=== PATIENT | female | born 1990 | race Caucasian/White ===

== ENCOUNTER 2019-03-27 16:43 | Observation (INO) | payer MEDICAID, SELFPAY ==
[2019-03-27 16:54] VITALS: BMI 26.3
[2019-03-27 17:29] VITALS: BP 113/76; PULSE 89; RESP 18; TEMP 36.8; O2SAT 100
[2019-03-27 17:31] VITALS: BP 113/76; PULSE 89; RESP 18; TEMP 36.8
[2019-03-27] MEDS: Dicyclomine 10 MG Capsule 20 MG PO (17:32)
[2019-03-27] MEDS: hydrOXYzine PAM 25 MG Capsule 50 MG PO (17:32)
[2019-03-27] MEDS: Methocarbamol 750 MG Tablet PO (17:33)
[2019-03-27] MEDS: Pramipexole Di-HCl 0.25 MG Tablet PO (17:33)
[2019-03-27] MEDS: Ibuprofen 600 MG Tablet PO (17:33)
[2019-03-27] MEDS: cloNIDine HCl 0.1 MG Tablet PO (17:33)
[2019-03-27] MEDS: Buprenorphine HCl 2 MG TAB.SUBL SL (17:33)
[2019-03-27 17:42] LABS: Absolute Lymphocyte Count 2.54 X10^3/ul (0.83-4.51); Absolute Neutrophil Count 6.7 X10^3/uL (2.0-7.7); Basophil# 0.02 X10^3/uL; Basophil% 0.2 % (0-1); Eosinophil# 0.07 X10^3/uL; Eosinophils% 0.7 % (0-5); Hematocrit 42.6 % (37-47); Lymphocyte # 2.54 X10^3/ul (4.0); Lymphocyte % 25.2 % (19-41); Mean Corp Hgb Conc 32.9 g/gl (32-36); Mean Corpuscular Hgb 31.5 pg (27.0-32.0); Mean Corpuscular Volume 95.9 fL (81-99); Mean Platelet Vol. 10.6 fl (6.2-12.0); Monocyte# 0.76 X10^3/uL; Monocyte% 7.5 % (0-10); Neutrophil # 6.68 X10^3/uL (2.7-7.7); Neutrophil % 66.3 % (47-70); POSITIVE COUNT NO; POSITIVE DIFFERENTIAL NO; POSITIVE MORPHOLOGY NO; Platelet Count 298 K/mm3 (150-450); RBC Distribution Width CV 13.3 % (11.6-14.6); RBC Distribution Width SD 46.6 fl (35.1-43.9); Red Blood Count 4.44 M/mm3 (4.2-5.4); White Blood Count 10.1 K/mm3 (4.4-11.0)
[2019-03-27 17:59] LABS: ALB/GLOB Ratio 1.1 RATIO (0.9-2.4); AST(SGOT) 41 U/L (15-37); Alanine Aminotransfer ALT/SGPT 45 U/L (13-56); Albumin, Serum 3.9 g/dL (3.2-5.0); Alkaline Phosphatase 90 U/L (45-117); Anion Gap 4 (5-15); BUN 9 mg/dL (7-18); BUN/Creat Ratio 8.1 RATIO (10-20); Calcium,Total 9.1 mg/dL (8.5-10.1); Chloride 106 mmol/L (98-107); Creatinine, Serum 1.11 mg/dL (0.55-1.02); EST Glomerular Filtration Rate 62 mL/min (>60); Est Glom Filt Rate - Afr Amer 76 mL/min (>60); Globulin 3.7 g/dL (2.2-4.2); Glucose 100 mg/dL (74-106); Potassium 3.9 mmol/L (3.5-5.1); Protein, Total 7.6 g/dL (6.4-8.2); Sodium Level 140 mmol/L (136-145)
[2019-03-27 18:01] LABS: Internal QC Validated? YES +Cl - CLEAR BKGD; Pregnancy, Serum, hCG Quali. NEGATIVE Negative
[2019-03-27 18:04] LABS: Alcohol, Blood (Medical)-Serum < 3.0 mg/dL
--- NOTE | 2019-03-27 18:15 | HP.PCM_ITS ---
History of Present Illness Date of Admission: 03/27/19 Chief Complaint: Acute opiate withdrawal. The patient is a 28 year old F with no significant past medical history apart from opioid abuse presented to the [facility] office requesting admission for acute opioid withdrawal. Patient has been using IV heroin around 1 g every day over the last couple of months. Before that, she was clean for about 10 months but she relapsed. She has been using IV heroin intermittently since she was 16 years old. Today, she presented with symptoms of hot and cold sweats, associated with anxiety and restlessness as well as sneezing and without aggravating or relieving factors. She denies abdominal pain, nausea vomiting. She denies constipation or diarrhea. Her last use of IV and was this morning around 6 AM. Her vital signs were stable. Her routine blood work was unremarkable. LFT was normal. Serum test was negative. Blood alcohol level was less than 3. Urine drug screen ordered. She is being admitted for acute opioid withdrawal for medical stabilization. 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 Denies: Anorexia, Chills, Fever, Weakness Eyes: Denies: Blurred vision, Double vision, Drainage, Redness HEENT: Denies: Difficulty Hearing, Ear Pain, Eye Pain, Nasal Congestion, Sore Throat Cardiovascular: Denies: Chest Pain, Chest Tightness, Heaviness, Light Headedness, Palpitations, Syncope Respiratory: Denies: Cough, Pleuritic Pain, Shortness of Breath, Sputum production, Wheezing Gastrointestinal: Denies: Abdominal Pain, Constipation, Diarrhea, Nausea, Vomiting Genitourinary: Denies: Dysuria, Frequency, Hematuria Musculoskeletal: Reports: Muscle pain. Denies: Arm Pain, Back Pain, Foot Pain Skin: Denies: Dryness, Rash Neurological: Reports: Tremor. Denies: Balance problems, Double vision, Change in Speech, Slurred speech, Confusion Psychiatric: Denies: Anxiety, Depression Endocrine: Denies: Change in Body Habitus, Polydipsia, Polyuria VTE Information - Inpt Only VTE Present on Admission: No VTE Mechan Device Prophylaxis: None VTE Pharm Prophylaxis ordered?: No - Physical Exam General: Alert, Oriented x3, Cooperative, No apparent distress HEENT: Atraumatic, PERRLA, EOMI, Normocephalic Oral: Moist Mucosa, No Gingival or Mucosal Lesions/ Ulcerations Neck: Supple, No JVD, Negative Carotid Bruits, Trachea Midline, Thyroid Normal Size and Texture Lungs: Clear to auscultation, Normal air movement, No rhonchi, No wheeze, No rales Cardiovascular: Regular rate, Regular Rhythm, Normal S1, Normal S2, No murmurs Abdomen: Bowel Sounds Present, Soft, Non Tender, Non-Distended, No Hepato- splenomegaly Extremities: No clubbing, No cyanosis, No edema Skin: No rashes, No breakdown Lymphatic: No Cervical, Supraclavicular, or Inguinal Adenopathy Neurological: Cranial nerves II-XII grossly intact, Motor Exam 5/5 strength throughout Psych/Mental Status: Normal Affect, Appropriate, Alert and oriented to time, place, person, mood and affect Vital Signs Temp Pulse Resp BP Pulse Ox 98.3 F 89 18 113/76 100 03/27/19 17:31 03/27/19 17:31 03/27/19 17:31 03/27/19 17:31 03/27/19 17:29 Oxygen Delivery Method Room Air Weight: 173 lb 4.533 oz Body Mass Index (BMI) 26.3 Intake and Output for Last 24 Hours 03/25/19 03/26/19 03/27/19 23:59 23:59 23:59 Intake Total 240 / 240 Balance 240 / 240 Laboratory Tests Past 24 Hrs 03/27/19 03/27/19 03/27/19 17:28 17:28 17:28 WBC 10.1 RBC 4.44 Hgb 14.0 Hct 42.6 MCV 95.9 MCH 31.5 MCHC 32.9 RDW 13.3 RDW Differential 46.6 H Plt Count 298 MPV 10.6 Immature Gran % (Auto) 0.100 Neut % (Auto) 66.3 Lymph % (Auto) 25.2 Winston % (Auto) 7.5 Eos % (Auto) 0.7 Baso % (Auto) 0.2 Absolute Neuts (auto) 6.7 Absolute Lymphs (auto) 2.54 Total Counted Not Reportable Sodium 140 Potassium 3.9 Chloride 106 Carbon Dioxide 30.0 Anion Gap 4 L BUN 9 Creatinine 1.11 H Estim Creat Clear Calc 76.80 Est GFR (MDRD) Af Amer 76 Est GFR (MDRD) Non-Af 62 BUN/Creatinine Ratio 8.1 L Glucose 100 Calcium 9.1 Total Bilirubin 0.50 AST 41 H ALT 45 Alkaline Phosphatase 90 Total Protein 7.6 Albumin 3.9 Globulin 3.7 Albumin/Globulin Ratio 1.1 Serum , Qual Ethyl Alcohol < 3.0 03/27/19 17:28 WBC RBC Hgb Hct MCV MCH MCHC RDW RDW Differential Plt Count MPV Immature Gran % (Auto) Neut % (Auto) Lymph % (Auto) Winston % (Auto) Eos % (Auto) Baso % (Auto) Absolute Neuts (auto) Absolute Lymphs (auto) Total Counted Sodium Potassium Chloride Carbon Dioxide Anion Gap BUN Creatinine Estim Creat Clear Calc Est GFR (MDRD) Af Amer Est GFR (MDRD) Non-Af BUN/Creatinine Ratio Glucose Calcium Total Bilirubin AST ALT Alkaline Phosphatase Total Protein Albumin Globulin Albumin/Globulin Ratio Serum , Qual NEGATIVE Ethyl Alcohol Assessment/Plan This is a 28 years old female patient presented to the [facility] office requesting admission for acute opiate withdrawal. #1 acute opiate withdrawal: Patient has been using IV heroin for the last 2 months. She was clean for about 2 months but she relapsed. She has been using opioids since she was 16 years old. Her vital signs are stable. Routine blood work and LFT was unremarkable. Serum test was negative. Urine drug screen ordered. Plan: Admit to [facility] floor, initiate [facility] protocol with tapering course of Subutex, PRN Tylenol, Catapres, Bentyl, Vistaril, Motrin, methocarbamol, Zofran, Mirapex and nightly trazodone. #2 DVT prophylaxis: Low risk patient, no prophylaxis indicated. This note was generated with Meuugame dictation software. It may contain incorrect words, spelling, and punctuation that were not noted in checking the note before signing. Code Visit Inpatient E&M: 60749 Init Hosp L2
[2019-03-27] MEDS: traZODone 50 MG Tablet PO (21:05)
[2019-03-27 21:45] VITALS: BP 104/68; PULSE 82; RESP 16; TEMP 36.9; O2SAT 98
[2019-03-27 22:00] VITALS: BP 104/68; PULSE 82; RESP 16; TEMP 36.9
[2019-03-27 22:17] LABS: Amphetamine Urine VISTA POSITIVE (<1000 ng/mL); Barbiturate Urine VISTA NEGATIVE (< 200 ng/mL); Benzodiazepine Urine VISTA NEGATIVE (< 200 ng/mL); Cocaine Urine VISTA NEGATIVE (< 300 ng/mL); Ecstacy Urine VISTA NEGATIVE (< 500 ng/mL); Methadone Urine VISTA POSITIVE (< 300 ng/mL); PCP Urine VISTA NEGATIVE (< 25 ng/mL); THC Urine VISTA POSITIVE (< 50 ng/mL); Vista UDS pH Range 7
[2019-03-28] MEDS: Buprenorphine HCl 2 MG TAB.SUBL SL ×3 (00:16→17:29)
[2019-03-28] MEDS: Methocarbamol 750 MG Tablet PO ×3 (00:16→19:22)
[2019-03-28 02:00] VITALS: PULSE 81; RESP 16
[2019-03-28 03:45] VITALS: BP 110/72; PULSE 81; RESP 16; TEMP 36.7; O2SAT 97
[2019-03-28 05:52] VITALS: RESP 16
--- NOTE | 2019-03-28 08:54 | PN_ITS ---
Patient Problems: Active and Suspected Problems Heroin withdrawal (Acute) Subjective: Feeling somewhat better at this time. Patient still with restless legs, abdominal cramps. Vitals/I&O's: Vital Signs Temp Pulse Resp BP Pulse Ox 36.7 C 81 16 110/72 97 03/28/19 03:45 03/28/19 03:45 03/28/19 05:52 03/28/19 03:45 03/28/19 03:45 Oxygen Delivery Method Room Air Weight: 78.6 kg Body Mass Index (BMI) 26.3 Intake and Output for Last 24 Hours 03/26/19 03/27/19 03/28/19 23:59 23:59 23:59 Intake Total 240 / 960 920 / 920 Balance 240 / 960 920 / 920 General: Alert, No apparent distress HEENT: Atraumatic, Normocephalic Oral: Moist Mucosa, No Gingival or Mucosal Lesions/ Ulcerations Neck: No Nodes, Thyroid Normal Size and Texture Lungs: Clear to auscultation, Normal air movement, No rhonchi, No wheeze Cardiovascular: Regular rate, Regular Rhythm, Normal S1, Normal S2, No murmurs Abdomen: Bowel Sounds Present, Soft, Non Tender, Non-Distended, No Hepato- splenomegaly Extremities: No edema, No Calf Tenderness Skin: No rashes, No breakdown Psych/Mental Status: Normal Affect, Appropriate Laboratory Results 03/27/19 17:28: WBC 10.1, RBC 4.44, Hgb 14.0, Hct 42.6, MCV 95.9, MCH 31.5, MCHC 32.9, RDW 13.3, RDW Differential 46.6 H, Plt Count 298, MPV 10.6, Immature Gran % (Auto) 0.100, Neut % (Auto) 66.3, Lymph % (Auto) 25.2, [place] % (Auto) 7.5, Eos % (Auto) 0.7, Baso % (Auto) 0.2, Absolute Neuts (auto) 6.7, Absolute Lymphs (auto) 2.54, Total Counted Not Reportable 03/27/19 17:28: Sodium 140, Potassium 3.9, Chloride 106, Carbon Dioxide 30.0, An ion Gap 4 L, BUN 9, Creatinine 1.11 H, Estim Creat Clear Calc 76.80, Est GFR (MDRD) Af Amer 76, Est GFR (MDRD) Non-Af 62, BUN/Creatinine Ratio 8.1 L, Glucose 100, Calcium 9.1, Total Bilirubin 0.50, AST 41 H, ALT 45, Alkaline Phosphatase 90, Total Protein 7.6, Albumin 3.9, Globulin 3.7, Albumin/Globulin Ratio 1.1 03/27/19 17:28: Ethyl Alcohol < 3.0 03/27/19 17:28: Serum , Qual NEGATIVE 03/27/19 21:10: Urine Opiates Screen NEGATIVE, Urine Methadone Screen POSITIVE H , Ur Barbiturates Screen NEGATIVE, Ur Phencyclidine Scrn NEGATIVE, Ur Amphetamines Screen POSITIVE H, U Methamphetamin-MDMA NEGATIVE, U Benzodiazepines Scrn NEGATIVE, Urine Cocaine Screen NEGATIVE, U Cannabinoids Screen POSITIVE H, Ur Drug Screen Comment Current Medications Acetaminophen (Tylenol) 500 mg PO Q4H PRN PRN PRN Reason: Temp > 100.4 F Buprenorphine HCl (Buprenorphine Hcl) 4 mg SL Q8H TIGRE; Taper Stop: 03/30/19 20:59 Last Admin: 03/28/19 00:16 Dose: 4 mg Documented by: Clonidine (Catapres) 0.1 mg PO Q2H PRN PRN PRN Reason: Hot/Cold Sweats or Anxiety Last Admin: 03/27/19 17:33 Dose: 0.1 mg Documented by: Dicyclomine HCl (Bentyl) 20 mg PO Q6H PRN PRN PRN Reason: Abdomnial Discomfort Last Admin: 03/27/19 17:32 Dose: 20 mg Documented by: Hydroxyzine Pamoate (Vistaril Pamoate Capsule) 50 mg PO Q6H PRN PRN PRN Reason: Mild Anxiety Last Admin: 03/27/19 17:32 Dose: 50 mg Documented by: Ibuprofen (Motrin) 600 mg PO Q8H PRN PRN PRN Reason: Mild-Moderate Pain (1-5/10) Last Admin: 03/27/19 17:33 Dose: 600 mg Documented by: Methocarbamol (Methocarbamol) 750 mg PO Q6H PRN PRN PRN Reason: Muscle Aches Last Admin: 03/28/19 00:16 Dose: 750 mg Documented by: Nicotine (Nicoderm Cq (Pbkc)) 21 mg TRANSDERM. DAILY TIGRE Last Admin: 03/27/19 17:33 Dose: 21 mg Documented by: Ondansetron HCl (Zofran Odt) 4 mg PO Q6H PRN PRN PRN Reason: NAUSEA Pramipexole Dihydrochloride (Mirapex) 0.25 mg PO Q12H PRN PRN PRN Reason: Restless Legs Last Admin: 03/27/19 17:33 Dose: 0.25 mg Documented by: Trazodone HCl (Desyrel) 50 mg PO QHS [facility] Last Admin: 03/27/19 21:05 Dose: 50 mg Documented by: Tuberculin PPD (Tubersol, Aplisol, Ppd) 5 tu ID [id number] ONE Stop: 03/28/19 10:01 Medical Necessity - Tobacco Use Smoking Status: Current every day smoker Tobacco Use: Cigarettes Assessment/Plan All Active Problems Heroin withdrawal (Acute) 1. Acute heroin withdrawal * Ongoing * Continue with buprenorphine taper that we will go until the , afterwards patient will be discharged. [facility] to further assist with long-term addiction management programs * Continue other medications to help other somatic issues associated with her withdrawal 2. VTE prophylaxis: Low risk. Therefore no prophylaxis indicated. Code Visit Inpatient E&M: 07086 Subs Hosp L2
[2019-03-28 09:05] VITALS: BP 106/76; PULSE 79; RESP 18; TEMP 36.8
[2019-03-28] MEDS: Pramipexole Di-HCl 0.25 MG Tablet PO ×2 (09:10→21:31)
[2019-03-28] MEDS: Tuberculin,Purif.prot.deriv. 50 TU/ML Vial 5 ML ID (10:32)
[2019-03-28] MEDS: Ibuprofen 600 MG Tablet PO (14:25)
[2019-03-28] MEDS: cloNIDine HCl 0.1 MG Tablet PO ×2 (14:26→19:21)
[2019-03-28] MEDS: hydrOXYzine PAM 25 MG Capsule 50 MG PO (14:26)
[2019-03-28 14:27] VITALS: BP 118/78; PULSE 66; RESP 18; TEMP 36.6
--- NOTE | 2019-03-28 14:33 | CHAPLAIN ---
Type of Pastoral Visit _x__ Initial Visit ___ Follow-up Visit ___ On-call Visit ___ General Patient Visit ___ Spiritual Assessment ___ Family Conference ___ Bereavement ___ Rapid Response ___ Code Blue ___ Other (describe below) Pastoral Care Referral From _x__ Patient ___ Family ___ Nurse ___ Physician ___ Insulation Manager ___ Category Consultant ___ Other (describe below) Sacrament/Intervention _x__ Active listening ___ Anointing ___ Anglican ___ Bereavement ___ Communion _x__ Chantel exploration ___ _x__ Life review _x__ Prayer ___ Reconciliation ___ Sacrament of Sick _x__ Supportive presence ___ Wedding ___ Other (describe below) Pastoral Comments patient welcoming and pleasant; pt explains her situation and history; pt is open to spiritual support and has Methodist chantel heritage but is not actively engaged in this when I am using drugs; pt welcomes prayer and inspirational literature to read
--- NOTE | 2019-03-28 15:55 | [facility] ---
Phoebe will attend [facility] inpatient on Monday04.01.19.
[2019-03-28 19:22] VITALS: BP 106/56; BP 106/58; PULSE 84; RESP 17; TEMP 36.6; O2SAT 100
[2019-03-28] MEDS: Acetaminophen 500 MG Tablet PO (19:22)
[2019-03-28] MEDS: traZODone 50 MG Tablet PO (21:31)
[2019-03-29 00:58] VITALS: BP 104/60; PULSE 67; RESP 16; TEMP 36.9; O2SAT 97
[2019-03-29 00:59] VITALS: BP 104/60; PULSE 67; RESP 16; TEMP 36.9
[2019-03-29] MEDS: Buprenorphine HCl 2 MG TAB.SUBL SL ×2 (01:00→08:25)
[2019-03-29 08:33] VITALS: BP 104/68; PULSE 66; RESP 18; TEMP 36.8
--- NOTE | 2019-03-29 09:46 | NURSING ---
Pt sitting in back hallway with [facility] patient from [id number], sitting in chairs conversing.
[2019-03-29] MEDS: hydrOXYzine PAM 25 MG Capsule 50 MG PO ×2 (10:30→16:44)
[2019-03-29] MEDS: Methocarbamol 750 MG Tablet PO (10:30)
--- NOTE | 2019-03-29 13:04 | PN_ITS ---
Patient Problems: Active and Suspected Problems Heroin withdrawal (Acute) Subjective: Feeling better overall, though still with restless legs. Vitals/I&O's: Vital Signs Temp Pulse Resp BP Pulse Ox 36.8 C 66 18 104/68 97 03/29/19 08:33 03/29/19 08:33 03/29/19 08:33 03/29/19 08:33 03/29/19 00:58 Oxygen Delivery Method Room Air Weight: 78.6 kg Body Mass Index (BMI) 26.3 Intake and Output for Last 24 Hours 03/27/19 03/28/19 03/29/19 23:59 23:59 23:59 Intake Total 240 / 960 2170 / 2670 700 / 700 Balance 240 / 960 2170 / 2670 700 / 700 General: Alert, No apparent distress HEENT: Atraumatic, Normocephalic Psych/Mental Status: Normal Affect, Appropriate Current Medications Acetaminophen (Tylenol) 500 mg PO Q4H PRN PRN PRN Reason: Temp > 100.4 F Last Admin: 03/28/19 19:22 Dose: 500 mg Documented by: Buprenorphine HCl (Buprenorphine Hcl) 2 mg SL Q12H TIGRE; Taper Stop: 03/30/19 20:59 Last Admin: 03/29/19 08:25 Dose: 2 mg Documented by: Clonidine (Catapres) 0.1 mg PO Q2H PRN PRN PRN Reason: Hot/Cold Sweats or Anxiety Last Admin: 03/28/19 19:21 Dose: 0.1 mg Documented by: Dicyclomine HCl (Bentyl) 20 mg PO Q6H PRN PRN PRN Reason: Abdomnial Discomfort Last Admin: 03/27/19 17:32 Dose: 20 mg Documented by: Hydroxyzine Pamoate (Vistaril Pamoate Capsule) 50 mg PO Q6H PRN PRN PRN Reason: Mild Anxiety Last Admin: 03/29/19 10:30 Dose: 50 mg Documented by: Ibuprofen (Motrin) 600 mg PO Q8H PRN PRN PRN Reason: Mild-Moderate Pain (1-5/10) Last Admin: 03/28/19 14:25 Dose: 600 mg Documented by: Methocarbamol (Methocarbamol) 750 mg PO Q6H PRN PRN PRN Reason: Muscle Aches Last Admin: 03/29/19 10:30 Dose: 750 mg Documented by: Nicotine (Nicoderm Cq (Pbkc)) 21 mg TRANSDERM. DAILY TIGRE Last Admin: 03/29/19 10:30 Dose: 21 mg Documented by: Ondansetron HCl (Zofran Odt) 4 mg PO Q6H PRN PRN PRN Reason: NAUSEA Pramipexole Dihydrochloride (Mirapex) 0.25 mg PO Q12H PRN PRN PRN Reason: Restless Legs Last Admin: 03/28/19 21:31 Dose: 0.25 mg Documented by: Trazodone HCl (Desyrel) 50 mg PO QHS TIGRE Last Admin: 03/28/19 21:31 Dose: 50 mg Documented by: Medical Necessity - Tobacco Use Smoking Status: Current every day smoker Tobacco Use: Cigarettes Assessment/Plan All Active Problems Heroin withdrawal (Acute) 1. Acute heroin withdrawal * Ongoing * Continue with buprenorphine taper that we will go until the , afterwards patient will be discharged. [facility] to further assist with long-term ad diction management programs * Continue other medications to help other somatic issues associated with her withdrawal * Patient to enroll in an outpt program on 04/01. She will be staying with family after she is discharged on the in the internum. 2. VTE prophylaxis: Low risk. Therefore no prophylaxis indicated. Code Visit Inpatient E&M: 36098 Subs Hosp L1
[2019-03-29] MEDS: Ibuprofen 600 MG Tablet PO (14:15)
[2019-03-29] MEDS: Pramipexole Di-HCl 0.25 MG Tablet PO (14:17)
[2019-03-29 14:18] VITALS: BP 93/61; PULSE 65; RESP 16; TEMP 36.7
[2019-03-29] MEDS: cloNIDine HCl 0.1 MG Tablet PO (18:48)
[2019-03-29 18:49] VITALS: BP 122/72; PULSE 80; RESP 18; TEMP 36.6
--- NOTE | 2019-03-29 19:20 | NURSING ---
UNABLE TO LOCATE PATIENT. ATTEMPTED TO CALL HER ON HER CELL PHONE NUMBER NO RESPONSE. SECURITY NOTIFIED. PHYSICIAN NOTIFIED LEFT VINCE
--- NOTE | 2019-03-30 15:08 | PCM.DC.SUM ---
Discharge Date and Diagnosis - Problem List Patient Problems: Active and Suspected Problems Heroin withdrawal (Acute) Date of Admission: 03/27/19 Date of Discharge: 03/29/19 - Primary Discharge Diagnosis Active and Suspected Problems Heroin withdrawal (Acute) Hospital Course and Treatment Summary of Care Provided: The patient is a 28 year old F presents for heroin withdrawal. She left AMA. [] Patient Problems: Active and Suspected Problems Heroin withdrawal (Acute) - Physical Exam Vital Signs Temp Pulse Resp BP Pulse Ox 36.6 C 80 18 122/72 H 97 03/29/19 18:49 03/29/19 18:49 03/29/19 18:49 03/29/19 18:49 03/29/19 00:58 Oxygen Delivery Method Room Air Weight: 78.6 kg Body Mass Index (BMI) 26.3 Intake and Output for Last 24 Hours 03/28/19 03/29/19 03/30/19 23:59 23:59 23:59 Intake Total 2170 / 2670 2400 / 2400 Balance 2170 / 2670 2400 / 2400 Primary Care Physician: Care Physician,No Primary [Primary Care Provider] - Disposition: Against Medical Advice Medical Necessity - Tobacco Use Smoking Status: Current every day smoker Tobacco Use: Cigarettes Meaningful Use Info Meaningful Use Diagnoses (Choose all that apply): None applicable Code Visit Inpatient E&M: 31328 Disch Hosp
== END 2019-03-29 19:15 | disposition left against medical advice (07) | DRG 770 ==
PROVIDERS: Admitting Provider Hospitalist; Referring Provider Hospitalist
DX: F11.23 Opioid dependence with withdrawal (principal); F17.210 Nicotine dependence, cigarettes, uncomplicated
CPT/HCPCS: 36415; 80053; 80307; 80320; 84703; 85025; 99218; 99406; G0378; G0379; G0480

== ENCOUNTER 2020-09-08 20:14 | Emergency (ER) | payer MEDICAID, SELFPAY ==
[2019-03-27 16:54] VITALS: BMI 26.3
[2020-09-08 20:14] VITALS: BP 146/98; PULSE 87; RESP 16; TEMP 36.4; O2SAT 100; BMI 32.3
--- NOTE | 2020-09-08 20:37 | ED.VIS.GEN ---
History of Present Illness Chief Complaint: Lower Extremity Injury Informant: Patient Narrative: Patient is a 29-year-old previously healthy female who presents to emergency department for left foot pain. It was initially injured 1 week ago when her boyfriend fell on her leg and she ended up twisting the foot outward. She was not seen at that time as the pain progressively got better over the next few days. She has been ambulating on it more frequently at work since yesterday and the pain has flared back up. She describes the pain as severe on the dorsal aspect of the left foot. Any weight on the foot does make it worse. Loss of sensation. She has been taking vvka-auv-ldggimm pain medicines for this which has not been giving significant relief. No pain in the ankle or proximal lower extremity. She denies any other injury. Past Medical History - Allergies and Home Meds Allergies/Adverse Reactions: Allergies No Known Allergies Allergy (Verified 09/08/20 20:16) Primary Care Physician: Care Physician,No Primary [Primary Care Provider] - Prior records reviewed: Yes Past Medical History: None Surgical History: no surgical history Smoking Status: Former smoker - Family History Maternal Family History: Reports: Hypertension Paternal Family History: Reports: No pertinent history Review of Systems All systems negative except as indicated General: Denies: Chills, Fever, Sweats Eyes: Denies: Visual changes - bilaterally, Diplopia ENT: Denies: Rhinorrhea, Sore throat Cardiovascular: Denies: Chest pain, Palpitations Respiratory: Denies: Dyspnea, Cough, Dyspnea on exertion Gastrointestinal: Denies: Abdominal pain, Nausea, Vomiting Musculoskeletal: Reports: Swelling, Extremity Pain. Denies: Neck pain, Back pain Skin: Denies: Rash, Wounds Neurological: Denies: Headache, Weakness, Numbness Physical Exam Vital Signs/Narrative: Vital Signs Temp Pulse Resp BP Pulse Ox 09/08/20 20:14 97.6 F L 87 16 146/98 H 100 Inital Vital Signs reviewed: Yes General: Well nourished, Well developed, No Acute Distress Head: Normocephalic, Atraumatic Eyes: Perrl, EOMI ENT: Moist mucous membranes, No rhinorrhea Neck: Supple, Nontender Cardiovascular: Regular rate, No murmurs Respiratory: No distress Abdomen: Nondistended Extremities: - - Pain with palpation over the dorsal aspect of the foot. No pain over the base of fifth metatarsal. Mild swelling over the painful sites. Good capillary refill. Sensation intact. Full range of motion of ankle and proximal joints. Skin: Normal color, No rash Neurological: Alert, Normal Strength, Normal Sensation Psychological: Normal affect, Normal Mood Diagnostic/Tx/Re-eval - Medical Decision Making Patient presents to the ED for left foot pain. She initially had an injury 1 week ago but this flared back up after walking on it more frequently. Check an x-ray to make sure there is no fracture. X-ray did not reveal any acute fracture or dislocation. This time will discharge home in stable condition. She is given a walking boot. He is to weight-bear as tolerated. Recommend RICE and kdei-wme-ftpfbrd pain medications. She is to follow-up with her PCP. Warning signs and symptoms which to return to the ED are reviewed. She understands and is agreeable this plan. Discharged home in stable condition. All questions answered. ED Disposition - Plan for ED Patient: Disposition: Home or Assisted Living Diagnosis: Foot sprain Instructions: ED Foot Sprain Referrals: Care Physician,No Primary [Primary Care Provider] - 1 Week if not improving
--- NOTE | 2020-09-08 20:40 | RAD_ITS ---
STUDY: X-RAY - LEFT FOOT CLINICAL: Female, 29 years old. PAIN ON DORSAL SURFACE OF FOOT LATERALLY JUST ANTERIOR TO ANKLE JOINT. BOYFRIEND FELL ON HER FOOT TECHNIQUE: 3 view(s) of the foot. COMPARISON: None. FINDINGS: Normal talus, calcaneus, and tarsal bones. Normal visualized subtalar, talonavicular, calcaneocuboid, tarsal and tarsometatarsal articulations. Normal metatarsi. Normal metatarsophalangeal joint of the great toe. Normal tibial and fibular sesamoid bones. Normal interphalangeal joint of the great toe. Normal phalanges of the great toe. Normal second through fifth metatarsophalangeal joints. Normal interphalangeal joints and phalanges of the lesser toes. The soft tissue structures are unremarkable. RAD/Foot min 3 Views IMPRESSION: Normal x-ray examination of the foot. Electronically Signed: Smooth Coles MD at 21:41 EST , Service support ,
== END 2020-09-08 22:02 | disposition home or self-care (01) ==
PROVIDERS: Emergency Provider Emergency Medicine
DX: S93.602A Unspecified sprain of left foot, initial encounter (principal); Z87.891 Personal history of nicotine dependence; X50.1XXA Overexertion from prolonged static or awkward postures, initial encounter; Y93.89 Activity, other specified; Y92.009 Unspecified place in unspecified non-institutional (private) residence as the place of occurrence of the external cause; Y99.8 Other external cause status
CPT/HCPCS: 73630; 99283

== ENCOUNTER 2021-03-17 13:00 | Outpatient (RCR) | payer MEDICAID, SELFPAY | END 2021-03-17 23:59 | LOC: NS 13:00 | PROVIDERS: Visit Provider Obstetrics & Gynecology | DX: O24.410 Gestational diabetes mellitus in pregnancy, diet controlled (principal); Z3A.00 Weeks of gestation of pregnancy not specified | CPT/HCPCS: 97802 ==

== ENCOUNTER 2021-03-24 17:10 | Outpatient (RCR) | payer MEDICAID, SELFPAY | END 2021-04-17 23:59 | LOC: DC 17:10 | PROVIDERS: Visit Provider Obstetrics & Gynecology | DX: O24.410 Gestational diabetes mellitus in pregnancy, diet controlled (principal); Z3A.00 Weeks of gestation of pregnancy not specified | CPT/HCPCS: G0108 ==

== ENCOUNTER 2021-05-20 12:25 | Inpatient (IN) | payer MEDICAID, SELFPAY ==
[2021-05-20] VITALS (39 sets, daily range): BP systolic 109–139; BP diastolic 71–92; PULSE 62–98; TEMP 36.6–37.2; O2SAT 97–100; BMI 34.9
[2021-05-20 12:25] LABS: ROM Internal Control Test YES-OK TO RESULT pt. (Internal QC)
[2021-05-20 12:26] LABS: ROM Patient Test POSITIVE (Negative)
--- NOTE | 2021-05-20 12:45 | PCM.HP.OB ---
HPI - General General Date of Admission: 05/20/21 HPI Narrative TIFFANIE CORTEZ, is a 30 F at 37.3 weeks who presents to triage c/o leaking fluid. She reports feeling a gush of fluid around 1030 am. She continues to leak clear fluid. Positive movement, denies vaginal bleeding or contractions. has been complicated by GDM A1, EFW 90% with AC >99%, history of HEP C and IV drug use. Maternal Data Information LAURA Calculator Estimated Delivery Date Method Current WG Current Estimate 06/07/21 Manual 37w 3d PFSH PFSH Medical History (Updated 05/20/21 @ 13:49 by Alex Rene) Depression Headache Hepatitis Home Medications [id number] [] 1 tab PO DAILY 05/20/21 [History Last Taken 05/20/21 08:00 1 tab] Allergy/AdvReac Type Severity Reaction Status Date / Time No Known Allergies Allergy Verified 10/08/20 12:15 Surgical History (Updated 05/20/21 @ 13:49 by Alex Rene) History of gynecologic surgery Social History (Updated 10/08/20 @ 12:33 by Valentin HARRIS, KIMBERLY) Smoking Status: Former smoker NST FHR Rate Baby A Baseline: 140 Variability:: Moderate Accelerations:: 15 x 15 Decelerations:: None NST Reactive:: Yes FHR Category:: Category I Uterine Activity:: irritability Vital Signs Vital Signs Vital Signs: 05/20/21 11:41 05/20/21 11:45 Temperature 98.2 F Temperature Source Temporal Pulse Rate 88 Blood Pressure 122/76 H BP Systolic 122 BP Diastolic 76 Physical Exam Const alert, oriented x3 and no apparent distress General Appearance: cooperative Orientation / Consciousness: awake Exam Limitations: no limitations HEENT normocephalic Head and Scalp: normal to inspection Eyes General Eye: normal appearance of both eyes Neck full ROM and no lymphadenopathy Lymph Lymphatic: no lymphadenopathy noted Chest inspection of chest normal Resp normal respiratory effort, normal air movement and clear to auscultation bilaterally Effort and Inspection: able to speak in complete sentences and symmetric chest movement Cardio regular rate and regular rhythm GI normal to inspection, nondistended, normoactive bowel sounds Manual OB Exam: presentation cephalic, dilated 1.5, effaced 80 and station -2 Amniotic Fluid: clear amniotic fluid Back/Spine normal ROM Extremity full ROM and no calf tenderness Skin no rashes or lesions noted General Skin Exam: no breakdown Neuro oriented x3 and CN's II-XII intact bilaterally Psych mental status grossly normal and thought process normal Labs Labs Labs: Blood Type O POSITIVE Antibody Screen NEGATIVE Hct 34.4 % (37-47) L Hgb 11.4 g/dL (12.0-15.0) L C.trachomatis DNA (PCR) Negative (Negative) O+ Rubella Immune HB neg HC- + antibody, neg viral load RPR- NR HIV- NR GBS negative Assessment & Plan (1) Spontaneous rupture of amniotic membranes: (2) 37 weeks gestation of : (3) GDM (gestational diabetes mellitus), class A1: (4) Hepatitis C antibody positive in blood: (5) LGA (large for gestational age) fetus: COMMENT: EFW 90%, AC >99% PLAN: Admit to labor and delivery Routine labs Start IV fluids and run per policy ROM PLUS- positive GBS negative GDM blood sugar monitoring Dr. Ren notified of admission and is collaborating physician
[2021-05-20] MEDS: Lactated Ringers 1,000 ML 50 ML IV (13:05)
[2021-05-20 13:21] LABS: Bedside Glucose 85 mg/dL (70-110)
[2021-05-20 13:22] LABS: Absolute Lymphocyte Count 1.81 X10^3/uL (0.83-4.51); Absolute Neutrophil Count 6.5 X10^3/uL (2.0-7.7); Basophil# 0.03 X10^3/uL; Basophil% 0.3 % (0-1); Eosinophils% 1.1 % (0-5); Hematocrit 34.4 % (37-47); Hemoglobin 11.4 g/dL (12.0-15.0); Lymphocyte # 1.81 X10^3/ul (0.83-4.51); Lymphocyte % 19.8 % (19-41); Mean Corp Hgb Conc 33.1 g/dL (32-36); Mean Corpuscular Hgb 32.4 pg (27.0-32.0); Mean Corpuscular Volume 97.7 fL (81-99); Mean Platelet Vol. 10.9 fl (6.2-12.0); Monocyte# 0.67 X10^3/uL; Monocyte% 7.3 % (0-10); NRBC Flagged by Analyzer 0 % (0-5); Neutrophil # 6.48 X10^3/uL (2.7-7.7); Neutrophil % 71.1 % (47-70); Platelet Count 208 K/mm3 (150-450); RBC Distribution Width CV 12.7 % (11.6-14.6); Red Blood Count 3.52 M/mm3 (4.2-5.4); White Blood Count 9.1 K/mm3 (4.4-11.0)
[2021-05-20 14:16] LABS: Amphetamine Urine VISTA NEGATIVE (<1000 ng/mL); Barbiturate Urine VISTA NEGATIVE (< 200 ng/mL); Benzodiazepine Urine VISTA NEGATIVE (< 200 ng/mL); Cocaine Urine VISTA NEGATIVE (< 300 ng/mL); Ecstacy Urine VISTA NEGATIVE (< 500 ng/mL); Methadone Urine VISTA NEGATIVE (< 300 ng/mL); PCP Urine VISTA NEGATIVE (< 25 ng/mL); THC Urine VISTA NEGATIVE (< 50 ng/mL); Vista UDS pH Range 6
[2021-05-20 14:21] LABS: Bedside Glucose 81 mg/dL (70-110)
--- NOTE | 2021-05-20 17:04 | PCM.PN.BLA ---
Progress Note Patient seen at bedside. Starting to feel occasional contractions. Ambulating in room and frequent position changes. Discussed augmentation of labor with Pitocin IV. Patient agrees with plan. Physical Exam Const alert and no apparent distress General Appearance: cooperative and comfortable Exam Limitations: no limitations HEENT normocephalic Eyes General Eye: normal appearance of both eyes Neck full ROM General: normal visual inspection Chest Chest: symmetrical chest wall rise Resp normal respiratory effort and normal air movement Effort and Inspection: symmetric chest movement Auscultation: clear to auscultation bilaterally Cardio regular rate and regular rhythm GI normal to inspection, nondistended, normoactive bowel sounds Back/Spine normal ROM Extremity full ROM and no calf tenderness General Extremity: normal exam except as noted Skin no rashes or lesions noted Neuro CN's II-XII intact bilaterally Psych mental status grossly normal Assessment & Plan Assessment/Plan (1) Spontaneous rupture of amniotic membranes: (2) 37 weeks gestation of : (3) GDM (gestational diabetes mellitus), class A1: (4) LGA (large for gestational age) fetus: (5) Hepatitis C antibody positive in blood: (6) History of cryosurgery of cervix affecting : QUALIFIERS: Trimester: unspecified trimester Qualified Code(s): O34.40 - Maternal care for other abnormalities of cervix, unspecified trimester; Z98.890 - Other specified postprocedural states PLAN: Cat 1 tracing, NST reactive CE- /50/-2 Start Pitocin IV and titrate per policy Continue blood sugar monitoring per policy Anticipate
[2021-05-20] MEDS: Oxytocin 30 units/NS 500 ml 30 UNITS/500 ML IV.SOLN IV (17:37)
[2021-05-20] MEDS: Acetaminophen 500 MG Tablet PO (18:18)
[2021-05-20 18:21] LABS: Bedside Glucose 86 mg/dL (70-110)
[2021-05-20] MEDS: Lactated Ringers 500 ML 999 ML IV (20:00)
[2021-05-20] MEDS: fentaNYL-bupivacaine (epidural) 100 ML BAG EPIDURAL (21:00)
[2021-05-20] MEDS: Mag Hydrox/Al Hydrox/Simeth 30 ML UDC PO (21:42)
[2021-05-20 22:30] LABS: Bedside Glucose 104 mg/dL (70-110)
[2021-05-20] MEDS: Lactated Ringers 1,000 ML 200 ML IV (23:16)
[2021-05-21] VITALS (32 sets, daily range): BP systolic 104–134; BP diastolic 52–80; PULSE 76–98; RESP 16; TEMP 36.3–37.9; O2SAT 96–99
[2021-05-21] MEDS: fentaNYL-bupivacaine (epidural) 100 ML BAG EPIDURAL ×3 (01:12→09:56)
[2021-05-21] MEDS: Acetaminophen 500 MG Tablet PO ×2 (02:15→09:55)
[2021-05-21 02:26] LABS: Bedside Glucose 81 mg/dL (70-110)
[2021-05-21] MEDS: Lactated Ringers 1,000 ML 200 ML IV ×2 (04:16→09:55)
[2021-05-21] MEDS: Lactated Ringers 500 ML 999 ML IV ×2 (04:19→09:55)
[2021-05-21] MEDS: Mag Hydrox/Al Hydrox/Simeth 30 ML UDC PO (04:56)
[2021-05-21] MEDS: Ondansetron 4 MG/2 ML Vial IV ×2 (05:19→10:14)
[2021-05-21] MEDS: 0.9% Saline Lock 10 ML Syringe IV (05:20)
[2021-05-21 06:06] LABS: Bedside Glucose 80 mg/dL (70-110)
--- NOTE | 2021-05-21 06:46 | PCM.PN.BLA ---
Progress Note Patient comfortable with epidural. Denies any pain. Physical Exam Const alert and no apparent distress General Appearance: cooperative and comfortable Exam Limitations: no limitations HEENT normocephalic Eyes General Eye: normal appearance of both eyes Neck full ROM General: normal visual inspection Chest Chest: symmetrical chest wall rise Resp normal respiratory effort and normal air movement Effort and Inspection: symmetric chest movement Auscultation: clear to auscultation bilaterally Cardio regular rate and regular rhythm GI normal to inspection, nondistended, normoactive bowel sounds Manual OB Exam: dilated 4, effaced 80, station 0 and other Band felt on cervix from hx of cryo Back/Spine normal ROM Extremity full ROM and no calf tenderness General Extremity: normal exam except as noted Skin no rashes or lesions noted Neuro CN's II-XII intact bilaterally Psych mental status grossly normal Assessment & Plan Assessment/Plan (1) 37 weeks gestation of : (2) GDM (gestational diabetes mellitus), class A1: (3) LGA (large for gestational age) fetus: (4) Hepatitis C antibody positive in blood: PLAN: Category 1 tracing NST reactive CE- 4/80/0 Pitocin IV infusing at 20 mu/min Continue present management of care Anticipate Dr. Ren updated on status
[2021-05-21 09:31] LABS: Bedside Glucose 118 mg/dL (70-110)
[2021-05-21 11:00] LABS: Bedside Glucose 82 mg/dL (70-110)
[2021-05-21] MEDS: Oxytocin 30 units/NS 500 ml 30 UNITS/500 ML IV.SOLN 334 UNITS IV (11:49)
--- NOTE | 2021-05-21 12:15 | EX.PCM.OBRPT ---
Maternal Data Information LAURA Calculator Estimated Delivery Date Method Current WG Current Estimate 06/07/21 Manual 37w 4d Vaginal Delivery Maternal Presentation Maternal Presentation: Spontaneous Rupture of Membranes Operative Information Date of Procedure: 05/21/21 Pre-Operative Diagnosis: SROM Post-Operative Diagnosis: Surgery / Procedure Performed: Spontaneous Vaginal Delivery Type of Anesthesia: Epidural Estimated Blood Loss: 400 ml Time of Delivery: 11:48 Findings Description of Procedure: Progressed to complete. of viable female infant over right periurethral laceration. APGARS 9,9. Infant head delivered with body immediately forthcoming. Placed on maternal abdomen. Mouth and nares suctioned for secretions. Cord clamped and cut by FOB and infant handed to awaiting nursing staff due to hepatitis C positive for bath. Pitocin started for active 3rd stage management. Placenta delivered with expression, intact, 3 vessel cord. Perineum inspected and revealed right periurethral laceration, repaired with 3.0 vicryl rapide. Hemostasis achieved, EBL 400ml. Vaginal sweep completed, sponge and instrument count correct. Mom and baby stable, family bonding well. notified of delivery. Presentation: Vertex Amniotic Membrane Rupture Type: Spontaneous Time of Membrane Rupture: 05/20/21 at 1030 am Amniotic Fluid Description: Clear Placental Delivery Description: Spontaneous Placenta Disposition: [facility] Cord Vessel Description: 3 Vessels Cord Entanglement: None Infant A Gender: Female (1 minute): 9 (5 minute): 9 Delayed Cord Clamping: No Post Vaginal Delivery Medications Given After Delivery: IV Pitocin Episiotomy Description: None Laceration: Periurethral Extnsion/lac (right) and 1st degree Complication Complications: None
[2021-05-21 14:15] LABS: Bedside Glucose 115 mg/dL (70-110)
[2021-05-21] MEDS: Ibuprofen 600 MG Tablet PO ×2 (15:07→23:23)
[2021-05-21] MEDS: Acetaminophen 500 MG Tablet 1000 MG PO (20:26)
[2021-05-22] MEDS: Acetaminophen 500 MG Tablet 1000 MG PO ×2 (02:40→08:59)
[2021-05-22 04:00] VITALS: BP 111/72; PULSE 80; RESP 16; TEMP 37
[2021-05-22 04:33] VITALS: BP 111/72; PULSE 80
[2021-05-22 04:46] LABS: Bedside Glucose 101 mg/dL (70-110); Hematocrit 31.1 % (37-47); Hemoglobin 10.4 g/dL (12.0-15.0); Mean Corp Hgb Conc 33.4 g/dL (32-36); Mean Corpuscular Hgb 32.8 pg (27.0-32.0); Mean Corpuscular Volume 98.1 fL (81-99); Mean Platelet Vol. 10.7 fl (6.2-12.0); Platelet Count 149 K/mm3 (150-450); RBC Distribution Width CV 12.7 % (11.6-14.6); RBC Distribution Width SD 46.2 fl (35.1-43.9); Red Blood Count 3.17 M/mm3 (4.2-5.4); White Blood Count 10.6 K/mm3 (4.4-11.0)
[2021-05-22] MEDS: Ibuprofen 600 MG Tablet PO ×2 (05:53→13:10)
[2021-05-22 08:51] VITALS: BP 119/75; PULSE 82
[2021-05-22] MEDS: Senna/Docusate Sodium 1 Tablet PO (08:59)
[2021-05-22 09:13] VITALS: BP 119/75; PULSE 85; RESP 16; TEMP 36.7; O2SAT 100
--- NOTE | 2021-05-22 11:18 | PCM.PN.OB ---
Subjective Subjective Doing well per patient and nursing staff. Ambulating and taking PO without difficulty. Voiding and passing flatus. Pain controlled. , services for assistance. Complaint of cracked nipples. Denies headache, visual changes, chest pain, shortness of breath, leg pain or increased bleeding. Lochia normal. Objective Data Objective Data Vital Signs: Vital Signs Temp Pulse Resp BP Pulse Ox 98.1 F 85 16 119/75 100 05/22/21 09:13 05/22/21 09:13 05/22/21 09:13 05/22/21 09:13 05/22/21 09:13 Oxygen Delivery Method Room Air Weight: 229 lb 15.074 oz Body Mass Index (BMI) 34.9 Intake & Output: Intake and Output for Last 24 Hours 05/20/21 05/21/21 05/22/21 23:59 23:59 23:59 Intake Total 2531.09 / 2538.42 4479.34 / 4479.34 Output Total 650 / 650 2550 / 2550 Balance 1881.09 / 1888.42 1929.34 / 1929.34 Lab / Micro Data Result Diagrams: 05/22/21 04:30 Labs: Laboratory Results - last 24 hr 05/21/21 14:01: POC Glucose 115 H 05/22/21 04:30: WBC 10.6, RBC 3.17 L, Hgb 10.4 L, Hct 31.1 L, MCV 98.1, MCH 32.8 H, MCHC 33.4, RDW Std Deviation 46.2 H, RDW Coeff of Roger 12.7, Plt Count 149 L, MPV 10.7 05/22/21 04:30: POC Glucose 101 Micro: Microbiology 05/20/21 13:00 Nasal Secretion SARS-CoV-2 Antigen (Rapid) - Final ROS Constitutional Constitutional: Reports systems reviewed and no addt'l complaints, except as documented; Denies headache(s) Eyes Eyes: Denies acute decrease in peripheral vision, blurry vision or change in vision ENT HEENT: Reports systems reviewed and no addt'l complaints, except as documented Cardiovascular Cardiovascular: Denies chest pain or dizziness Respiratory/Chest Respiratory/Chest: Denies cough, dyspnea, dyspnea on exertion, shortness of breath at rest or shortness of breath with exertion Gastrointestinal Gastrointestinal: Denies abdominal pain, diarrhea, nausea or vomiting Genitourinary Genitourinary: Reports other; Denies abdominal discomfort Musculoskeletal Musculoskeletal: Denies limited range of motion Integumentary Integumentary: Reports systems reviewed and no addt'l complaints, except as documented Neurologic Neurologic: Reports systems reviewed and no addt'l complaints, except as documented Psychiatric Psychiatric: Reports systems reviewed and no addt'l complaints, except as documented Endocrine Endocrinology: Reports systems reviewed and no addt'l complaints, except as documented Hematologic/Lymphatic Hematologic/Lymphatic: Reports systems reviewed and no addt'l complaints, except as documented Allergic/Immunologic Allergic/Immunologic: Reports systems reviewed and no addt'l complaints, except as documented Physical Exam Const alert and oriented x3 General Appearance: cooperative Orientation / Consciousness: awake, oriented to person, oriented to place and oriented to time Exam Limitations: no limitations HEENT normocephalic Head and Scalp: normal to inspection, normocephalic and atraumatic Face and Sinus: normal facial exam Eyes General Eye: normal appearance of both eyes Neck full ROM Chest Chest: symmetrical chest wall rise Resp normal respiratory effort and normal air movement Auscultation: clear to auscultation bilaterally Cardio regular rate, regular rhythm, S1 normal heart sound, S2 normal heart sound, no murmurs, no rub, no gallops and no clicks GI normal to inspection, nondistended, normoactive bowel sounds and non-tender appearance of the vagina normal Narrative: fundus firm 2 below u Bladder / Kidney Exam: no CVA tenderness Back/Spine normal ROM Extremity normal to inspection and full ROM Skin no rashes or lesions noted Neuro oriented x3, CN's II-XII intact bilaterally and moves all extremities Sensorium / Orientation: awake, alert and oriented to person Motor Exam: clonus absent Deep Tendon Reflexes: Rt Patellar (L4): 2+ and Lt Patellar (L4): 2+ Assessment & Plan (1) Vaginal delivery: (2) GDM (gestational diabetes mellitus), class A1: (3) Hepatitis C antibody positive in blood: PLAN: 1) Routine PP care 2) Hgb stable 3) Vitals stable 4) APNO for bilateral cracked nipples. services consultation for assistance 5) Request discharge home, routine discharge instructions given 6) Follow u pin 2 weeks for virtual visit and 6 weeks for PP visit.
--- NOTE | 2021-05-22 11:42 | PCM.DC.SUM ---
Providers Date of Admission: 05/20/21 Primary Care Physician: Thelma Primary Care Phys Reason For Visit: LABOR & DELIVERY VAG Diagnosis Discharge Diagnosis (1) Vaginal delivery: Status: Acute Code(s): O80 - Encounter for full-term uncomplicated delivery (2) GDM (gestational diabetes mellitus), class A1: Status: Acute Code(s): O24.410 - Gestational diabetes mellitus in , diet controlled (3) Hepatitis C antibody positive in blood: Status: Acute Code(s): R76.8 - Other specified abnormal immunological findings in serum Medications at Discharge Home Medications [id number] 1 tab PO DAILY 05/20/21 acetaminophen 1,000 mg PO Q6H PRN PRN #0 tab 05/22/21 benzocaine-menthol [Dermoplast (with menthol)] 1 spray TOPICAL TID PRN PRN #0 g 05/22/21 ibuprofen 600 mg PO Q6H PRN PRN #0 tab 05/22/21 Weight / BMI Weight Weight: 229 lb 15.074 oz Body Mass Index (BMI) 34.9 ABG / Lab / Microbiology Data Result Diagrams: 05/22/21 04:30 Laboratory: Laboratory Results - last 24 hr 05/21/21 14:01: POC Glucose 115 H 05/22/21 04:30: WBC 10.6, RBC 3.17 L, Hgb 10.4 L, Hct 31.1 L, MCV 98.1, MCH 32.8 H, MCHC 33.4, RDW Std Deviation 46.2 H, RDW Coeff of Roger 12.7, Plt Count 149 L, MPV 10.7 05/22/21 04:30: POC Glucose 101 Microbiology: Microbiology 05/20/21 13:00 Nasal Secretion SARS-CoV-2 Antigen (Rapid) - Final D/C Instructions Please Follow Up With: Edwar Farr Meaningful Use Info Meaningful Use Diagnoses (Choose all that apply): None applicable Discharge Plan Admission Admit Date/Time: 05/20/21 12:25 Primary Reason for Your Visit: Attending Provider: Kristen Farr Primary Care Provider: Care Physician,No Primary Instructions Patient Instructions: After a Vaginal , : Caring for Yourself Discharge Orders/Prescriptions Prescriptions: New Dermoplast (with menthol) 20-0.5 % Aerosol 1 spray topical TID PRN PRN (Reason: perineal discomfort) Qty: 0 RF: 0 acetaminophen 500 mg Tablet 1,000 mg PO Q6H PRN PRN (Reason: Pain 1-10 Or Fever) Qty: 0 RF: 0 ibuprofen 600 mg Tablet 600 mg PO Q6H PRN PRN (Reason: Pain Score 1-3) Qty: 0 RF: 0 Continued roqzhdnm-tea-Oz-FA 1 mg Tablet 1 tab PO DAILY RF: 0 Referrals / Follow Up: Care Physician,No Primary [Primary Care Provider] - Within 2 Weeks (virtual visit in 2 weeks and 6 week for visit) Disposition Disposition (needs filled in before D/C Order can be placed): Home, Self Care
[2021-05-22 13:18] VITALS: BP 109/73; PULSE 82; RESP 16; TEMP 36.4
[2021-05-22 13:20] VITALS: BP 109/73; PULSE 82
--- NOTE | 2021-05-22 16:01 | CASEMGMT ---
STEVENSON Note Referral Source: MD Referral Reason: Past use of drugs ( 1 1/2 years ago) SW met with patient, and fob in room. Patient gave verbal consent for this screen writer to speak to her in the presence of the fob. Patient was in bassinette at the beginning of the interview but then fob was holding the as the interview progressed . Mom: Shelby PNC: [facility]. Control: Patient said that they do not wish to use control as they want more kids but not right away. Baby: Jesus Mederos 05/21/2020 Weight: 6 Lbs and 13 ounces MOB has no other children Housing: Patient, fob and will be residing in a duplex. No other family members. Transportation: Patient said that she is able to drive and has access to transportation. Supplies: Patient and the fob report that they have a crib, bassinet, carseat, clothes and diapers for the . Support: Patient reports that her support will be the fob, patient's mom, patient's grandmother, patient's dad and patient's aunt. Patient said that her family lives 10 minutes away. The fob said that his family will also be available to [facility] and they also live locally. Education Level: Patient obtained her GED. 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 Patient said she is unsure how many weeks off she will take off from work. Agency Involvement: Patient receives Boss and food stamps. Patient was open to referral to [facility] and [facility]. Patient reports she receives counseling from Chaparrita at [facility] every 2 weeks. Patient's next appointment with Chaparrita is Friday 05/25. No CSB involvement. Patient reports she is on parole through [facility] but will be off parole soon. FOB: Jasson Gavin Time Together: 3 year Involved at : FOBlanquita said that he will be involved with the Employment: [employer]. LOLY has been at his job for 1 year. Foblanquita said that he will take Monday and Monday off. FOB said that the first week he returns to work he will work from 6:30am till 9:30am . Other Children: LOLY has 1 child, daughter age 4, who he has not seen since July. He said that the child's mother is resentful and thus does not let him have visits. FOB said that he just needs money and to go to court to resume visitation. FOB MH/AOD/ DV: Patient had denied any domestic violence on DV screen. Patient said that he was addicted to heroin and has been clean for 2 years. He stated he got clean by going to [facility]. Maternal MH History: Patient denied any feelings of hopeless on PHq9 -2. Patient said that she sees therapist, Chaparrita, at [facility] every 2 weeks. Patient said that she got sober prior to going to jail and then relapsed before going to jail and was sober in jail for 1 1/2 years. Patient denied any SI/HI (past or current). Patient reports no psych hospitalizations. Patient reports she is comfortable with and taking her home. Patient was educated on Post depression, Shaken Baby and Safe sleeping AOD history: Patient reports history of opiate abuse. Patient said that her last use was 11/14/19 per chart. Patient was negative tox screen at delivery. Patient was provided with handouton 10 facts about depression and anxiety, depression with checklist, [facility] brochure, safe sleep brochure, Moms of Newborns, Post Support and their phone number, online resources for post mood and anxiety and list of counselors in [facility]. STEVENSON spoke to charge account clerkGRANT Tierney who reports no current concerns just past drug use. STEVENSON updated charge account clerk and RN. STEVENSON made referral to [facility] and WIC. Lyly GARCIA
--- NOTE | 2021-05-22 16:25 | CASEMGMT ---
SW Note Referral Source: WP STEVENSON Referral Reason: Patient has been sober for 1 1/2 years. Past drug use history Mother: Phoebe PNC: [facility] Control: None Baby: Jesus GARCIA 05/21/2021 Apgars: 05/27 Pediatrican: LOYDA Breast feeding which patient reports is going good. SW met with patient and fob in the room. Patient gave verbal consent to speak to her in the presence of the FOB. FOB was holding the during the interview. MOB other children: None Housing: Patient, fob and nb reside in an duplex. No other residents Transportation: Patient reports she is able to drive and has access to a vehicle Supplies: Patient and fob report they have all supplies including crib, bassinet, careseat, diapers and clothes Support: Patient reports that the fob and patient's family (grandma, mom, dad, and aunt) will be available for support. Patient [id number] that her family lives 10 minutes away. FOB said that his familyi s local and can also provide support. Employment: Patient is employed by the [employer]. 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 Agency Involvement: Boss and food stamps. Patient was open to referral to WIC and [facility]. Patient goes to counseling, on a biweekly basis, with Chaparrita at [facility]. Her next appointment with Chaparrita is Monday (05/25). Patient is on parole though [facility] but reports she will be off parole soon. No CPS involvement FOB: Jasson Gavin Time Together: 3 years in October Involved at : FOBlanquita said that he will be involved with and her care. Employment: [employer]. LOLY has been at this job for 1 year. LOLY said that this is his weekend off. LOLY said that for the first week he will work from 6:30am-9:30am. He said that he wants to take off as much time as I can to assist with caring for the . LOLY's other children: LOLY has 1 child, a daughter, who resides with her mom. He has not seen the child since July. He stated that the child's mother is 'resentfuland thus he can't have visitation. He said that he just needs money and to go back to court to resume his visits. FOB's MH/AOD and DV. Patient denied DV on the DV screen. LOLY said that he previously used heroin. He has been sober for 2 years. LOLY [facility] his AOD [facility]. MOB MH History: Patient sees Chaparrita at [facility] every 2 weeks. Her next appointment with Chaparrita is Monday. Patient said that she had been doing outpatient counseling and got clean, then relapsed and was sent to nursing home. Patient said that the 1 1/2 years in [facility] kept her clean. Patient reports her drug of choice was heroin. Patient said sonia she has never had a psych hospitalization, denied any past or current SI or HI, and reports that she is comfortable with the discharge home with . Patient was educated on Shaken Baby, Post Depression and Safe Sleeping AOD history: Patient [id number] that her drug of choice was opiates. Patient [id number] she has been clean and per chart her last use was 11/14/19. Per chart patient's tox screen was negative and was negative through pregancy. Patient was provided with [facility], Safe to Sleep, 10 facts about depression, depression symptoms, [facility] Mothers of newborns, Depression and anxiety and phone contact, on line resources for post mood and anxiety disorders and counseling agencies in [facility]. Patient appeared to be appropriately bonding (smiling when talking about the ) with the . SW spoke to bellows charger assemblerKelsy, who reported no current concerns. Concerns related to past drug use. director integrated and RN updated. STEVENSON made referral to [facility] and WIC. Plan: Home at discharge Lyly GARCIA
== END 2021-05-22 14:45 | disposition home or self-care (01) | DRG 542 ==
LOC: WPOUT 12:30 → WP 12:30
PROVIDERS: Advanced Practice Midwife; Admitting Provider Advanced Practice Midwife; Referring Provider Advanced Practice Midwife; Visit Provider Advanced Practice Midwife
DX: O24.420 Gestational diabetes mellitus in childbirth, diet controlled (principal); O71.5 Other obstetric injury to pelvic organs; Z3A.37 37 weeks gestation of pregnancy; Z37.0 Single live birth
CPT/HCPCS: 59025; 59050; 80307; 82962; 84112; 85025; 85027; 86850; 86900; 86901; 87426; 99218; J7120; A4216; G0378; J2405

== ENCOUNTER → 2022-10-21 | Outpatient (CLI) | payer MEDICAID, SELFPAY ==
[2022-10-21 14:25] VITALS: BP 118/75; PULSE 81; RESP 16; O2SAT 97
[2022-10-21] MEDS: 0.9% NaCl Peripheral Flush Adult/Peds IV ×3 (14:29→14:53)
[2022-10-21] MEDS: Metoclopramide 10 MG/2 ML Vial IV (14:43)
[2022-10-21] MEDS: DiphenhydrAMINE 50 MG/ML Syringe IV (14:47)
== END | disposition home or self-care (01) ==
PROVIDERS: Referring Provider Obstetrics & Gynecology; Visit Provider Obstetrics & Gynecology
DX: O99.351 Diseases of the nervous system complicating pregnancy, first trimester (principal); G43.909 Migraine, unspecified, not intractable, without status migrainosus; Z3A.09 9 weeks gestation of pregnancy
CPT/HCPCS: 96374; 96375; A4216

== ENCOUNTER 2023-04-16 16:25 | Outpatient (CLI) | payer MEDICAID, SELFPAY ==
[2023-04-16 16:42] VITALS: BP 134/79; PULSE 80
[2023-04-16 16:45] VITALS: TEMP 36.6
[2023-04-16 16:59] VITALS: BMI 37.1
[2023-04-16 17:11] LABS: ROM Internal Control Test YES-OK TO RESULT pt. (Internal QC); ROM Patient Test Negative (Negative); Record Kit Lot#, ROM+ K1374
[2023-04-16 17:23] LABS: Mucous, Urine 0 SEEN /hpf (<or=2+); Red Blood Cells-Urine 0 SEEN /hpf (0-5)
[2023-04-16 17:33] LABS: Color, Urine Yellow (Yellow); Glucose, Dipstick Normal (Normal); Ketone-Dipstick 50 mg/dl (Negative); Leukocyte Esterase-Dipstick 25 /ul (Negative); Nitrite-Dipstick Negative (Negative); Occult Blood-Urine Negative /ul (Negative); Protein-Dipstick Negative (Negative); Specific Gravity, Urine 1.025 (1.002-1.030); Urine Bilirubin Dipstick Negative (Negative); Urine Clarity Sl. Cloudy (Clear); Urine Urobilinogen Normal (Normal); Urine pH 6.5 (5.0 - 8.0)
[2023-04-16 17:49] LABS: White Blood Cells 0-5 SEEN /hpf (0-5)
[2023-04-16 17:50] LABS: Bacteria 1+ /hpf (None Seen); Squamous Epithelial Cells - UA 5-10 SEEN /hpf (5-10)
[2023-04-16 18:01] VITALS: BP 135/78; PULSE 76
[2023-04-16 18:13] LABS: Bedside Glucose 142 mg/dL (74-106)
[2023-04-16] MEDS: LACTATED RINGERS 500 ML 999 ML IV (18:55)
--- NOTE | 2023-04-16 20:56 | OB.TRI.NOTE ---
HPI - General HPI Narrative TIFFANIE CORTEZ, is a 32 F at 34.4 who presents to triage with leaking of fluid. Stated has felt several gushes of fluid after sitting on birthing ball. Denies any vaginal bleeding. Positive movement and feeling occasional contractions. Maternal Data Information LAURA Calculator Estimated Delivery Date Method Current WG Current Estimate 05/24/23 Manual 34w 4d PFSH PFSH Medical History Depression Headache Hepatitis Home Medications ixlwurwt-ssf-Dc-FA 1 mg tablet 1 tab PO DAILY 05/20/21 [History Last Taken 04/16/23 06:00 1 TAB] acetaminophen 500 mg tablet 1,000 mg (2 x 500 mg) PO Q6H PRN PRN Pain 1-10 Or Fever #0 tabs 05/22/21 [Rx Last Taken 04/16/23 10:00 1,000 mg] aspirin 81 mg capsule 81 mg PO DAILY 04/16/23 [History Last Taken 04/16/23 06:00 81 mg] metoclopramide HCl 10 mg tablet (Reglan) 10 mg PO Q6H 04/16/23 [History Last Taken 04/16/23 06:00 5 mg] Allergy/AdvReac Type Severity Reaction Status Date / Time No Known Allergies Allergy Verified 04/16/23 16:31 Surgical History History of gynecologic surgery Social History Smoking Status: Former smoker History Elective abortions Hx Para 0 Spontaneous abortions Hx # Term Pregnancies Ectopic pregnancies Hx # Pregnancies Multiple births # of living children ROS Eyes Eyes: Denies blurry vision Cardiovascular Cardiovascular: Reports none; Denies chest pain at rest, chest pain with activity or dizziness Respiratory/Chest Respiratory/Chest: Denies cough or dyspnea Gastrointestinal Gastrointestinal: Reports none and other; Denies diarrhea or vomiting Genitourinary Genitourinary: Denies dysuria Musculoskeletal Musculoskeletal: Reports none Integumentary Integumentary: Reports none; Denies rash Neurologic Neurologic: Denies dizziness, headache(s) or other visual disturbances Psychiatric Psychiatric: Reports none Physical Exam Const alert and no apparent distress General Appearance: cooperative Orientation / Consciousness: awake Exam Limitations: no limitations HEENT normocephalic Eyes General Eye: normal appearance of both eyes Neck full ROM Chest inspection of chest normal Resp normal respiratory effort and normal air movement Effort and Inspection: symmetric chest movement Auscultation: clear to auscultation bilaterally Cardio regular rate GI soft to palpation, non-tender and non-distended Inspection: and other Back/Spine normal ROM Extremity full ROM, normal capillary refill and no calf tenderness Skin no rashes or lesions noted Neuro oriented x3 and CN's II-XII intact bilaterally Psych mental status grossly normal Assessment & Plan (1) 34 weeks gestation of : (2) GDM, class A1: (3) Leakage of amniotic fluid: (4) Hepatitis C antibody positive in blood: (5) History of cryosurgery of cervix affecting : QUALIFIERS: Trimester: unspecified trimester Qualified Code(s): O34.40 - Maternal care for other abnormalities of cervix, unspecified trimester; Z98.890 - Other specified postprocedural states PLAN: Plan ROM plus - negative Cat. 1 tracing - NST reactive Contractions palpated mild and noted via TOCO Start IV and give 500 cc bolus CE - remains unchanged c/t/h Patient feeling better after fluid bolus D/C home with follow up in office tomorrow Dr. Thomas notified of above
== END 2023-04-16 19:48 | disposition home or self-care (01) ==
LOC: WPOUT 16:29 → WP 16:30
PROVIDERS: Visit Provider Advanced Practice Midwife
DX: O34.43 Maternal care for other abnormalities of cervix, third trimester (principal); Z98.890 Other specified postprocedural states; O98.413 Viral hepatitis complicating pregnancy, third trimester; B19.20 Unspecified viral hepatitis C without hepatic coma; Z3A.34 34 weeks gestation of pregnancy; O42.913 Preterm premature rupture of membranes, unspecified as to length of time between rupture and onset of labor, third trimester
CPT/HCPCS: 96365; 59025; 59050; 81001; 82962; 84112; J7120

== ENCOUNTER 2023-05-04 15:00 | Inpatient (IN) | payer MEDICAID, SELFPAY ==
[2023-05-04] VITALS (11 sets, daily range): BP systolic 108–126; BP diastolic 57–82; PULSE 69–90; TEMP 36.1–36.4; O2SAT 97–99; BMI 37.5
[2023-05-04 16:23] LABS: Absolute Lymphocyte Count 2.13 X10^3/uL (0.83-4.51); Basophil# 0.04 X10^3/uL; Basophil% 0.4 % (0-1); Eosinophil# 0.14 X10^3/uL; Eosinophils% 1.3 % (0-5); Hematocrit 36.8 % (37-47); Hemoglobin 12.1 g/dL (12.0-15.0); Lymphocyte # 2.13 X10^3/ul (0.83-4.51); Lymphocyte % 19.3 % (19-41); Mean Corp Hgb Conc 32.9 g/dL (32-36); Mean Corpuscular Hgb 33.3 pg (27.0-32.0); Mean Corpuscular Volume 101.4 fL (81-99); Mean Platelet Vol. 11.1 fl (6.2-12.0); Monocyte% 6.3 % (0-10); NRBC Flagged by Analyzer 0 % (0-5); Neutrophil # 7.95 X10^3/uL (2.7-7.7); Neutrophil % 71.9 % (47-70); Platelet Count 214 K/mm3 (150-450); RBC Distribution Width SD 48.2 fl (35.1-43.9); Red Blood Count 3.63 M/mm3 (4.2-5.4); White Blood Count 11.1 K/mm3 (4.4-11.0)
[2023-05-04] MEDS: Lactated Ringers 1,000 ML 50 ML IV (16:37)
[2023-05-04] MEDS: Oxytocin 15 Units/NS 250ml 15 UNITS/250 ML IV.SOLN 2 UNITS IV (17:09)
[2023-05-04 17:15] LABS: Bedside Glucose 86 mg/dL (74-106)
[2023-05-04] MEDS: Acetaminophen 500 MG Tablet PO (17:32)
[2023-05-04 17:53] LABS: Bedside Glucose 87 mg/dL (74-106)
[2023-05-04] MEDS: 0.9% Normal Saline Single 100 ML IV.SOLN. INTRA-UTER (18:04)
[2023-05-04 18:05] LABS: Amphetamine Urine VISTA NEGATIVE (<1000 ng/mL); Barbiturate Urine VISTA NEGATIVE (< 200 ng/mL); Benzodiazepine Urine VISTA NEGATIVE (< 200 ng/mL); Cocaine Urine VISTA NEGATIVE (< 300 ng/mL); Ecstacy Urine VISTA NEGATIVE (< 500 ng/mL); Methadone Urine VISTA NEGATIVE (< 300 ng/mL); PCP Urine VISTA NEGATIVE (< 25 ng/mL); THC Urine VISTA NEGATIVE (< 50 ng/mL); Vista UDS pH Range 5
--- NOTE | 2023-05-04 18:09 | PCM.HP.OB ---
HPI - General General Date of Admission: 05/04/23 Date of Service: 05/04/23 HPI Narrative TIFFANIE CORTEZ, is a 32 F who presents for induction due to BPP 4 in the office today. Maternal Data Information LAURA Calculator Estimated Delivery Date Method Current WG Current Estimate 05/24/23 Manual 37w 1d Final LAURA: 05/24/23 Gestational age: 37&1 PFSH PFSH Medical History (Updated 05/04/23 @ 18:[address] Rukhsana Ren MD) 34 weeks gestation of Anxiety Depression Gestational diabetes Headache Hepatitis Home Medications [id number] 1 mg tablet 1 tab PO DAILY 05/20/21 [History Last Taken 05/04/23] acetaminophen 500 mg tablet 1,000 mg (2 x 500 mg) PO Q6H PRN PRN Pain 1-10 Or Fever #0 tabs 05/22/21 [Rx Last Taken 05/04/23] aspirin 81 mg capsule 81 mg PO DAILY 04/16/23 [History Last Taken 05/04/23] metoclopramide HCl 10 mg tablet (Reglan) 10 mg PO Q6H migraines 04/16/23 [History Last Taken 05/03/23] insulin NPH isoph U-100 human 100 unit/mL subcutaneous suspension (Novolin N NPH U-100 Insulin isophane) unit subcut gestational diabetes 05/04/23 [History Last Taken 05/03/23] Allergy/AdvReac Type Severity Reaction Status Date / Time No Known Allergies Allergy Verified 05/04/23 17:12 Surgical History History of gynecologic surgery Social History Smoking Status: Former smoker History Elective abortions Hx Para 1 Spontaneous abortions Hx # Term Pregnancies Ectopic pregnancies Hx # Pregnancies Multiple births # of living children NST FHR Rate Baby A Baseline: 135 Variability:: Moderate Accelerations:: 15 x 15 Decelerations:: None Uterine Activity:: Irregular Vital Signs Vital Signs Vital Signs: 05/04/23 15:26 05/04/23 15:26 05/04/23 15:26 Temperature Temperature Source Pulse Rate 90 Blood Pressure 126/79 H BP Systolic 126 BP Diastolic 79 Pulse Ox 97 05/04/23 15:26 05/04/23 15:26 05/04/23 17:09 Temperature 97.6 F L Temperature Source Temporal Temporal Pulse Rate Blood Pressure BP Systolic BP Diastolic Pulse Ox 05/04/23 17:09 05/04/23 17:11 05/04/23 17:11 Temperature 97.3 F L Temperature Source Pulse Rate 88 Blood Pressure 120/75 BP Systolic 120 BP Diastolic 75 Pulse Ox 05/04/23 17:11 Temperature Temperature Source Pulse Rate Blood Pressure BP Systolic BP Diastolic Pulse Ox 98 Weight Weight: 246 lb 14.684 oz Body Mass Index (BMI) 37.5 Physical Exam Const alert, oriented x3 and no apparent distress Chest inspection of chest normal Resp normal respiratory effort GI soft to palpation, non-tender and non-distended Inspection: gravid external exam normal Narrative: cvx - 1/50/-3, intracervical trevizo placed Labs Labs Labs: Blood Type O POSITIVE Antibody Screen NEGATIVE Hct 36.8 % (37-47) L Hgb 12.1 g/dL (12.0-15.0) Syphilis Total Ab Pending see [facility] H&P Assessment & Plan (1) 37 weeks gestation of : COMMENT: @ 37&1 (2) Gestational diabetes requiring insulin: (3) Hepatitis C antibody positive in blood: COMMENT: viral load negative 10/10/22 (4) History of cryosurgery of cervix affecting : QUALIFIERS: Trimester: third trimester Qualified Code(s): O34.43 - Maternal care for other abnormalities of cervix, third trimester; Z98.890 - Other specified postprocedural states (5) History of biophysical profile: COMMENT: BPP 12/24 in office today PLAN: Plan Admit to L&D Proceed with induction - on pitocin & intracervical trevizo placed GDMA2 - diabetic protocol Pain - epidural as desired EFW - less than 4500g, patient with adequate pelvis Routine care
[2023-05-04 21:41] LABS: Syphilis Antibodies Non-reactive
[2023-05-04 21:59] LABS: Bedside Glucose 96 mg/dL (74-106)
[2023-05-04] MEDS: LACTATED RINGERS 500 ML 999 ML IV (23:51)
[2023-05-05] VITALS (57 sets, daily range): BP systolic 105–134; BP diastolic 57–91; PULSE 63–95; RESP 16; TEMP 36.1–36.5; O2SAT 94–99
[2023-05-05] MEDS: fentaNYL-bupivacaine (epidural) 100 ML BAG EPIDURAL ×2 (01:07→10:22)
[2023-05-05] MEDS: Lactated Ringers 1,000 ML 250 ML IV ×3 (03:01→11:08)
[2023-05-05 03:22] LABS: Bedside Glucose 97 mg/dL (74-106)
[2023-05-05] MEDS: Ondansetron 4 MG/2 ML Vial IV ×2 (04:16→09:40)
[2023-05-05 07:17] LABS: Bedside Glucose 89 mg/dL (74-106)
--- NOTE | 2023-05-05 08:23 | PCM.PN.BLA ---
Progress Note pt side, resting comfortably. Epidural in place. heart tracing category 1 reactive. Pitocin at 20mu. . AROM performed large amt of clear fluid. 4-5//-2. anticipate
[2023-05-05] MEDS: Acetaminophen 500 MG Tablet PO (09:40)
[2023-05-05] MEDS: Oxytocin 15 Units/NS 250ml 15 UNITS/250 ML IV.SOLN 20 UNITS IV (11:08)
[2023-05-05 11:37] LABS: Bedside Glucose 79 mg/dL (74-106)
[2023-05-05] MEDS: Oxytocin 15 Units/NS 250ml 15 UNITS/250 ML IV.SOLN 83 UNITS IV (12:10)
--- NOTE | 2023-05-05 12:28 | EX.PCM.OBRPT ---
Maternal Data Information LAURA Calculator Estimated Delivery Date Method Current WG Current Estimate 05/24/23 Manual 37w 2d Vaginal Delivery Maternal Presentation Maternal Presentation: Medically Indicated Induction Type of Induction: Pitocin and Raines Bulb Medical Reason for Induction: Maternal Medical Condition: list: (GMDA2) and Compromise: list: (BPP 4/8) Operative Information Date of Procedure: 05/05/23 Pre-Operative Diagnosis: GDMA2, 37 weeks gestation, BPP 4/8, History HEP C , obesity in Post-Operative Diagnosis: same, live female Surgery / Procedure Performed: Spontaneous Vaginal Delivery Type of Anesthesia: Epidural Drain: Raines to straight drain Estimated Blood Loss: 200 Time of Delivery: 12:05 Findings Description of Procedure: I was called for delivery. Upon my arrival patient was fully dilated 100% effaced and +2 station. Good maternal pushing efforts delivered the 's head followed by gentle downward traction to deliver the anterior shoulder followed by the rest the infant's body without complication. was vigorous at time of delivery placed on the mother's chest for immediate skin to skin. Delayed cord clamping was performed. Pitocin was started. Placenta was then delivered intact without complication. First-degree perineal laceration was appreciated was repaired with 3-0 Rapide for hemostasis. No other complications. Presentation: Vertex Amniotic Membrane Rupture Type: Artificial Amniotic Fluid Description: Clear Placental Delivery Description: Spontaneous Placenta Disposition: [facility] Specimen(s) Removed: Placenta Cord Vessel Description: 3 Vessels Cord Entanglement: None A Gender: Female (1 minute): 8 (5 minute): 9 Delayed Cord Clamping: Yes Post Vaginal Delivery Medications Given After Delivery: IV Pitocin Episiotomy Description: None Laceration: Perineal Extension/lac and 1st degree Complication Complications: None
[2023-05-05 13:30] LABS: Bedside Glucose 101 mg/dL (74-106)
[2023-05-05] MEDS: Acetaminophen 500 MG Tablet 1000 MG PO (21:33)
[2023-05-06 03:30] VITALS: BP 130/86; PULSE 71; PULSE 74; RESP 16; TEMP 36.7; O2SAT 99
[2023-05-06 05:26] LABS: Bedside Glucose 90 mg/dL (74-106)
--- NOTE | 2023-05-06 08:35 | PCM.PROGNOTE ---
Subjective Subjective patient seen at bedside, doing well. Patient reports good pain control. lochia mild. Objective Data Objective Data Vital Signs: Vital Signs Temp Pulse Resp BP Pulse Ox O2 Del Method 98.1 F 74 16 130/86 H 99 Room Air 05/06/23 03:30 05/06/23 03:30 05/06/23 03:30 05/06/23 03:30 05/06/23 03:30 05/06/23 03:30 Oxygen Delivery Method Room Air Weight: 112 kg Body Mass Index (BMI) 37.5 Intake & Output: Intake and Output for Last 24 Hours 05/04/23 05/05/23 05/06/23 23:59 23:59 23:59 Intake Total 36.57 / 36.57 4189.30 / 4189.30 Output Total 850 / 850 Balance 36.57 / 36.57 3339.30 / 3339.30 Lab / Micro Data 05/04/23 16:15 Labs: Laboratory Results - last 24 hr 05/05/23 11:17: POC Glucose 79 05/05/23 13:13: POC Glucose 101 05/06/23 05:03: POC Glucose 90 Physical Exam Const alert and oriented x3 General Appearance: cooperative HEENT normocephalic Neck General: normal visual inspection GI soft to palpation and non-distended GI Narrative: Fundus firm Extremity normal to inspection and no calf tenderness Skin no rashes or lesions noted Neuro oriented x3 and CN's II-XII intact bilaterally Psych mental status grossly normal Assessment & Plan Assessment/Plan (1) Vaginal delivery: (2) Gestational diabetes requiring insulin: (3) Hepatitis C antibody positive in blood: PLAN: Plan PPD#1 , Doing well Routine care pain mgmt ambulation baby in SCN- pt would like to be dc to hotel status
--- NOTE | 2023-05-06 08:37 | DCINST_ITS ---
Discharge Instructions Diet Discharge Diet: No restrictions Activity May resume sexual activity in: 6-8 weeks Dressing / Incision Call your doctor if you observe: Fever of 101 or Higher, Inability to urinate, Using more than 1 pad per hour and Uncontrolled pain Follow Up Care Please Follow Up With: Lee Ann Urias MD When: 1-2 weeks post and again at 6 weeks post . [phone] Test Results: Test results from this visit will be discussed in further detail at your follow- up appointment, if applicable. Discharge Plan Admission Admit Date/Time: 05/04/23 15:00 Attending Provider: Lee Ann Urias Discharge Orders/Prescriptions Prescriptions: New acetaminophen 500 mg Tablet 1,000 mg PO Q6H PRN PRN (Reason: Pain 1-10 Or Fever) Qty: 0 0RF Continued [id number]-jbh-Op-FA 1 mg Tablet 1 tab PO DAILY Discontinued acetaminophen 500 mg Tablet 1,000 mg PO Q6H PRN PRN (Reason: Pain 1-10 Or Fever) Qty: 0 0RF Novolin N NPH U-100 Insulin 100 unit/mL suspension SUBCUT Patient Comments: INJECT 14 units SUBCUTANEOUSLY DAILY AT BEDTIME metoclopramide HCl [Reglan] 10 mg tablet 10 mg PO Q6H Patient Comments: prn aspirin 81 mg capsule 81 mg PO DAILY Disposition Disposition (needs filled in before D/C Order can be placed): Home, Self Care
[2023-05-06] MEDS: Ibuprofen 600 MG Tablet PO (08:59)
[2023-05-06 09:00] VITALS: BP 114/83; PULSE 83; RESP 18; TEMP 36.1; O2SAT 97
[2023-05-06] MEDS: Senna/Docusate Sodium 1 Tablet PO (09:07)
--- NOTE | 2023-05-06 10:31 | CASEMGMT ---
Social Work Assessment REFERRAL Date of Referral: 05/04/23(on MOB's chart), 05/06/23(in SCN) Time of Referral: 4:25(MOB's chart), 2:23(SCN) Date of Intervention: 05/06/23 Time of Intervention: 9:45am Referral site: [facility] [place] Referred by: Dr. Tea Bates DO Reason for Referral: baby in SCN, MOB also hx substance abuse and anxiety PSYCHOSOCIAL HISTORY: Presenting situation: Baby born 05/05 via , baby in SCN. MOB w/history of anxiety and substance abuse History obtained from: MOB and FOB Jasson Gavin Household composition: MOB, LOLY, daughter Jesus who is 2 and now baby Evita. LOLY also has 6 bernardo old Nicole who is with them every other week. FOB and MOB have been together for 10 years, are parents of Jesus and Evita. Patient's parent/guardian status:Parents are guardians of 2 children. In regard to Nicole, FOBlanquita sees her every other weekend. He explains that initially had visits with daughter, just arranged between he and the mother of Nicole. However, she started to withhold visitation, so he went through the Juvenile Court. He is now working to get additional time w/his daughter. Medical History: MOB--gestational diabetes, anxiety, depression, hepatitis. Baby--both 05/05/23, 2970 grams at . Apgars 8 and 9 at one and five minutes. Baby hypoglycemic so in [facility] Developmental Concerns: None at this time. Educational Status: MOB has GED, FOBlanquita completed 11th grade Health Care Coverage: Boss Financial Status: No concerns. Both parents work, KEI works at [employer]. Supplies: They have all needed supplies including diapers, wipes, clothing, car seat, bassinet, crib. Childcare/Caregiver(s): KEI does plan to return to work, she works days. LOLY works mornings so they are able to trade off to watch the children. KEI's aunt and mom will watch the children if needed, Jesus sleeps over KEI's mother's home one night every other weekend. Transportation: They have 2 vehicles. Programs/Agencies Involved: FOB involved with Juvenile Court to get more time w/daughter. At this time no other agencies involved. MOB has been on probation in the past. LOLY has worked through [employer], and still talks to his cost recovery technician weekly. Behavioral Health Issues: KEI with history of anxiety and depression. She has been on medication in the past. She explains was considering going back on medication at the start of her but did not find a practitioner willing to prescribe anything. We talked about speaking w/her PCP or RESERVES CLERK should she start feeling again that it would be helpful. MOB and LOLY both state she is fairly self aware so if she starts having increased symptoms again will ask for help. She is not in counseling at present and does not feel the need for it right now. 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 She relapsed four years ago and then was put on probation, has been clean since. KEI's tox screen is negative. LOLY also states has had some anxiety in the past, has been on meds in the past. He states is managing fine now. 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 No safety concerns identified at this time. Family Stressors: None identified Support Systems: MOB's mother, aunt, grandmother, MOB and FOBlanquita's friends. Assessment SW spoke w/MOB and LENNOXB, baby in SCN at this time. Both MOB and FOB very open w/SW, answered all questions completely and directly. SW gave MOB resources and reviewed them, including information on Help Me Grow, Shaken Baby, Safe Sleeping, [facility] Resources, and resources regarding depression and anxiety. SW reviewed briefly checklist of symptoms, spoke w/MOB about speaking w/OB or PCP if having increased symptoms of depression or anxiety. MOB states she will do so, she states she did notice an increase in symptoms of anxiety after the of their last child. Plan Baby to go home w/MOB and FOB, no concerns at this time. Response to Plan: MOB and FOB in agreement w/plan. JAY Smith 05/06/2023
[2023-05-06 12:37] VITALS: BP 117/65; PULSE 76
[2023-05-06 12:39] VITALS: BP 117/65; PULSE 76; RESP 18; TEMP 36.2
[2023-05-06] MEDS: Acetaminophen 500 MG Tablet 1000 MG PO (12:54)
== END 2023-05-06 13:03 | disposition home or self-care (01) | DRG 560 ==
PROVIDERS: Obstetrics & Gynecology; Admitting Provider Obstetrics & Gynecology; Visit Provider Obstetrics & Gynecology
DX: O24.424 Gestational diabetes mellitus in childbirth, insulin controlled (principal); Z37.0 Single live birth; O70.0 First degree perineal laceration during delivery; Z3A.37 37 weeks gestation of pregnancy; Z79.82 Long term (current) use of aspirin; Z87.891 Personal history of nicotine dependence; Z86.19 Personal history of other infectious and parasitic diseases
CPT/HCPCS: 59025; 59050; 80307; 82962; 85025; 86780; 86850; 86900; 86901; 99221; J7120; G0378; J2405

== ENCOUNTER 2025-03-17 21:20 | Outpatient (CLI) | payer MEDICAID, SELFPAY ==
[2025-03-17 21:39] VITALS: PULSE 76; O2SAT 98
[2025-03-17 21:40] VITALS: BP 124/79; PULSE 78; RESP 14; TEMP 36.3
[2025-03-17 21:51] LABS: Mucous, Urine 0 SEEN /hpf (<or=2+)
[2025-03-17 21:57] VITALS: BMI 31.6
[2025-03-17 21:57] LABS: Color, Urine Yellow (Yellow); Glucose, Dipstick Normal (Normal); Ketone-Dipstick Negative (Negative); Leukocyte Esterase-Dipstick Negative /ul (Negative); Nitrite-Dipstick Negative (Negative); Occult Blood-Urine Negative /ul (Negative); Protein-Dipstick 15 mg/dl (Negative); Specific Gravity, Urine 1.015 (1.002-1.030); Urine Bilirubin Dipstick Negative (Negative)
[2025-03-17 22:12] LABS: Red Blood Cells-Urine 0-5 SEEN /hpf (0-5); Squamous Epithelial Cells - UA 5-10 SEEN /hpf (5-10)
[2025-03-17] MEDS: Lactated Ringers 1,000 ML 999 ML IV (22:45)
[2025-03-17 22:54] LABS: Hematocrit 34.5 % (37-47); Hemoglobin 11.6 g/dL (12.0-15.0); Immature Granulocytes Count 0.030 X10^3/uL (0.0-0.0); Mean Corp Hgb Conc 33.6 g/dL (32-36); Mean Corpuscular Volume 98.0 fL (81-99); Mean Platelet Vol. 10.6 fl (6.2-12.0); NRBC Flagged by Analyzer 0 % (0-5); Platelet Count 197 K/mm3 (150-450); RBC Distribution Width CV 14.3 % (11.6-14.6); RBC Distribution Width SD 51.2 fl (35.1-43.9); Red Blood Count 3.52 M/mm3 (4.2-5.4); White Blood Count 8.4 K/mm3 (4.4-11.0)
[2025-03-17 23:12] LABS: Creatinine, Urine (random) 92.80 mg/dL (28.00-217.00); Protein, Urine (Random) 18.0 mg/dL (0.0-12.0); Protein:Creat Ratio 194 mg/g CRE (0-200)
[2025-03-17 23:31] LABS: AST(SGOT) 19 U/L (<=31); Alanine Aminotransfer ALT/SGPT 16 U/L (<=34); Albumin, Serum 3.5 g/dL (3.5-5.0); Alkaline Phosphatase 91 U/L (35-104); Anion Gap 10 (5-15); BUN 6 mg/dL (4-19); BUN/Creat Ratio 10.6 RATIO (10-20); Calcium,Total 8.4 mg/dL (7.6-11.0); Carbon Dioxide 22.8 mmol/L (21.0-32.0); Chloride 103 mmol/L (98-108); Estimated Creatinine Clearance 177.88 ml/min (50-250); Globulin 2.6 g/dL (2.2-4.2); Glucose 83 mg/dL (70-99); Potassium 3.6 mmol/L (3.3-5.1)
[2025-03-18 00:02] LABS: Lipase 32 U/L (13-75); Uric Acid 3.9 mg/dL (2.6-6.0)
[2025-03-18 01:25] LABS: Amylase 68 U/L (28-100)
[2025-03-18 07:23] VITALS: BP 124/80; PULSE 78; RESP 16
== END 2025-03-18 08:45 | disposition home or self-care (01) ==
LOC: WPOUT 21:30 → WP 21:31
PROVIDERS: Visit Provider Advanced Practice Midwife
DX: O98.413 Viral hepatitis complicating pregnancy, third trimester (principal); F41.9 Anxiety disorder, unspecified; F32.A Depression, unspecified; Z79.899 Other long term (current) drug therapy; Z87.891 Personal history of nicotine dependence; R10.11 Right upper quadrant pain; R10.12 Left upper quadrant pain; B19.20 Unspecified viral hepatitis C without hepatic coma; Z3A.36 36 weeks gestation of pregnancy; O99.343 Other mental disorders complicating pregnancy, third trimester; O99.891 Other specified diseases and conditions complicating pregnancy
CPT/HCPCS: 96360; 59025; 59050; 76705; 80053; 81001; 82150; 82570; 83690; 84156; 84550; 85025; 99221; G0378

== ENCOUNTER 2025-04-10 11:20 | Inpatient (IN) | payer MEDICAID, SELFPAY ==
[2025-04-10] VITALS (10 sets, daily range): BP systolic 107–142; BP diastolic 61–80; PULSE 76–109; RESP 13–16; TEMP 36.4–36.9; O2SAT 96–100; BMI 31.9
--- NOTE | 2025-04-10 11:28 | PCM.HP.OB ---
HPI - General General Date of Admission: 04/10/25 Date of Service: 04/10/25 Chief Complaint: contractions HPI Narrative TIFFANIE CORTEZ, is a 34 F who presents @ 39 4/7 weeks per consents complaining of contractions that started at 7 AM and are getting more more contract. She has had some mucus show but no gross vaginal bleeding or leaking of fluid. She has had good movement. Past medical history significant for depression history of IV drug use not currently using, history of hepatitis C that has resolved, history of abnormal Pap smears and cryosurgery of the cervix, history of gestational diabetes and previous pregnancies, hip dysplasia, anxiety and headaches Social history: She denies any tobacco alcohol or drug use during the Obstetrical history she has had 2 full-term vaginal deliveries Maternal Data Information Final LAURA: 04/13/25 Gestational age: 39 4/7 [facility] Medical History (Updated 04/10/25 @ 11:[address] Qi Plummer MD) Anxiety Gestational diabetes 34 weeks gestation of Vaginal delivery Headache Hepatitis Depression Home Medications ?Medication ?Instructions ?Recorded ?Last Taken ?Type fluoxetine 20 mg capsule 20 mg PO DAILY dep 03/17/25 Unknown History gabapentin 300 mg capsule 300 mg PO TID joint pain 03/17/25 Unknown History ferrous sulfate 325 mg (65 mg 325 mg PO DAILY 04/10/25 Unknown History iron) tablet (Feosol) magnesium 200 mg tablet 200 mg PO DAILY 04/10/25 Unknown History Allergy/AdvReac Type Severity Reaction Status Date / Time No Known Allergies Allergy Verified 04/10/25 10:44 Surgical History History of gynecologic surgery Social History Smoking Status: Former smoker History Elective abortions Hx Para 1 Spontaneous abortions Hx # Term Pregnancies Ectopic pregnancies Hx # Pregnancies Multiple births # of living children NST FHR Rate Baby A Baseline: normal Variability:: Moderate Accelerations:: 15 x 15 Decelerations:: None FHR Category:: Category I Uterine Activity:: q 3-4 min ctxs ROS Constitutional Constitutional: Denies fatigue, fever(s) or malaise Eyes Eyes: Denies change in vision ENT HEENT: Denies dizziness or headache(s) Cardiovascular Cardiovascular: Denies chest pain, dyspnea or lightheadedness Respiratory/Chest Respiratory/Chest: Denies cough or dyspnea Gastrointestinal Gastrointestinal: Denies change in bowel habits Genitourinary Genitourinary: Denies burning urination or genital lesions Integumentary Integumentary: Denies rash Neurologic Neurologic: Denies confusion, dizziness, headache(s), numbness or weakness Vital Signs Vital Signs Vital Signs: 04/10/25 10:20 04/10/25 10:20 04/10/25 10:20 Temperature Temperature Source Tympanic Respiratory Rate 13 Pulse Ox 100 04/10/25 10:20 Temperature 97.9 F Temperature Source Respiratory Rate Pulse Ox Weight Weight: 95.254 kg Body Mass Index (BMI) 31.9 Physical Exam Narrative cervix 5/90/-2 soft and anterior Const alert and no apparent distress General Appearance: cooperative HEENT normocephalic Resp normal respiratory effort Cardio regular rate GI soft to palpation GI Narrative: gravid, nontender, appropriate for gestational age Extremity no calf tenderness General Extremity: edema Skin no wounds Rashes: No rashes noted Psych activity/motor behavior normal Labs Labs Labs: Blood Type O POSITIVE Antibody Screen NEGATIVE Hct 34.5 % (37-47) L Hgb 11.6 g/dL (12.0-15.0) L Syphilis Total Ab Non-reactive Assessment & Plan (1) Spontaneous onset of labor: (2) 39 weeks gestation of : (3) High-risk in third trimester: (4) Hepatitis C antibody positive in blood: COMMENT: viral load negative 10/10/22 PLAN: neg. viral load 09/2024 PLAN: Plan Estimated weight is less than 4500 g clinically and pelvis clinically adequate to expect vaginal delivery. May have routine pain control measures as desires and as indicated in labor.
[2025-04-10] MEDS: Lactated Ringers 1,000 ML 50 ML IV (12:35)
[2025-04-10 12:39] LABS: Hematocrit 37.7 % (37-47); Hemoglobin 12.8 g/dL (12.0-15.0); Immature Granulocytes Count 0.050 X10^3/uL (0.0-0.0); Mean Corp Hgb Conc 34.0 g/dL (32-36); Mean Corpuscular Volume 96.4 fL (81-99); Mean Platelet Vol. 10.8 fl (6.2-12.0); NRBC Flagged by Analyzer 0 % (0-5); Platelet Count 207 K/mm3 (150-450); RBC Distribution Width CV 13.6 % (11.6-14.6); RBC Distribution Width SD 48.4 fl (35.1-43.9); Red Blood Count 3.91 M/mm3 (4.2-5.4); White Blood Count 9.6 K/mm3 (4.4-11.0)
--- NOTE | 2025-04-10 12:58 | PCM.PN.OB ---
Subjective Subjective AROM for clear fluid. 5-/-1 Broken tracing. Going natural. No pitocin. Objective Data Objective Data Vital Signs: Vital Signs Temp Resp Pulse Ox 97.9 F 13 100 04/10/25 10:20 04/10/25 10:20 04/10/25 10:20 Weight: 95.254 kg Body Mass Index (BMI) 31.9 Lab / Micro Data 04/10/25 12:15 Labs: Laboratory Results - last 24 hr 04/10/25 12:15: WBC 9.6, RBC 3.91 L, Hgb 12.8, Hct 37.7, MCV 96.4, MCH 32.7 H, MCHC 34.0, RDW Std Deviation 48.4 H, RDW Coeff of Roger 13.6, Plt Count 207, MPV 10.8, Immature Gran % (Auto) 0.500, Neut % (Auto) 75.6 H, Lymph % (Auto) 16.4 L, Shelby % (Auto) 6.1, Eos % (Auto) 1.1, Baso % (Auto) 0.3, Absolute Neuts (auto) 7.2, Absolute Lymphs (auto) 1.57, Nucleated RBC % 0 NST FHR Rate Baby A Baseline: 150 Variability:: Moderate Uterine Activity:: q 3
[2025-04-10 13:35] LABS: Syphilis Antibodies Nonreactive (Nonreactive)
[2025-04-10 14:19] LABS: Barbiturate Urine NEGATIVE (< 200 ng/mL); Benzodiazepine Urine NEGATIVE (< 200 ng/mL); PCP Urine NEGATIVE (< 25 ng/mL); THC Urine NEGATIVE (< 50 ng/mL)
[2025-04-10] MEDS: Lidocaine 1% (20 ml mdv) 20 ML Vial INFILT (14:43)
[2025-04-10] MEDS: Oxytocin 15 Units/NS 250ml 15 UNITS/250 ML IV.SOLN 83 UNITS IV (14:45)
--- NOTE | 2025-04-10 14:53 | EX.PCM.OBVAG ---
Assessment & Plan (1) Hepatitis C antibody positive in blood: (2) Vaginal delivery: (3) 39 weeks gestation of : Maternal Data Information Final LAURA: 04/06/25 Gestational age: 39+3 Vaginal Delivery Maternal Presentation Maternal Presentation: Active Labor Type of Induction: Amniotomy Vaginal Delivery Information Procedure Performed: Spontaneous Vaginal Delivery Surgeon/Practitioner: Eleanor Haji Date of Procedure: 04/10/25 Pre-Procedure Diagnosis: Active Labor Post-Procedure Diagnosis: Type of anesthesia: None Estimated Blood Loss: 200 cc Time of Delivery: 14:40 Findings Description of procedure: Presented in active labor. Quickly progressed from 6 cm to complete and pushed for 4 contractions. The vertex delivered over an intact perineum. The anterior and posterior shoulders delivered easily followed by the remainder of the body. The was placed on the maternal abdomen and was stimulated. The cord was clamped and cut at one minute. The placenta delivered with gentle traction. There was a 1st degree perineal that was repaired with 2-0 vicryl. All sponge, needle and instrument counts were correct. Presentation: Vertex and TONI Amniotic Membrane Rupture Type: Artificial Amniotic Fluid Description: Clear Placental Delivery Description: Spontaneous Placenta Disposition: [facility] Specimen collected: Yes Description of specimen(s) removed: cord blood Cord Vessel Description: 3 Vessels Cord Entanglement: None Infant A Gender: Male (1 minute): 8 (5 minute): 9 Delayed Cord Clamping: Yes [employer] Incident Responder noc technician: No Post Vaginal Deli Medications given after delivery: IM Pitocin Episiotomy Description: None Laceration: Midline and 1st degree Complication Complications: No
[2025-04-10 18:46] LABS: HIV Nonreactive (Nonreactive); Hepatitis B Surface Antigen Nonreactive (Nonreactive); Hepatitis C Antibody REAC (Nonreactive)
[2025-04-11 03:33] VITALS: BP 119/69; PULSE 84; RESP 16; TEMP 36.3; O2SAT 97
--- NOTE | 2025-04-11 07:19 | PCM.PN.OB ---
Subjective Subjective Doing well. Ambulating and voiding without difficulty. Mild lochia. Breast feeding. Objective Data Objective Data Vital Signs: Vital Signs Temp Pulse Resp BP Pulse Ox O2 Del Method 97.4 F L 84 16 119/69 97 Room Air 04/11/25 03:33 04/11/25 03:33 04/11/25 03:33 04/11/25 03:33 04/11/25 03:33 04/11/25 03:33 Oxygen Delivery Method Room Air Weight: 95.254 kg Body Mass Index (BMI) 31.9 Intake & Output: Intake and Output for Last 24 Hours 04/09/25 04/10/25 04/11/25 23:59 23:59 23:59 Intake Total 358.33 / 358.33 Output Total 550 / 550 Balance -191.67 / -191.67 Lab / Micro Data 04/10/25 12:15 Labs: Laboratory Results - last 24 hr 04/10/25 12:15: WBC 9.6, RBC 3.91 L, Hgb 12.8, Hct 37.7, MCV 96.4, MCH 32.7 H, MCHC 34.0, RDW Std Deviation 48.4 H, RDW Coeff of Roger 13.6, Plt Count 207, MPV 10.8, Immature Gran % (Auto) 0.500, Neut % (Auto) 75.6 H, Lymph % (Auto) 16.4 L, Osborne % (Auto) 6.1, Eos % (Auto) 1.1, Baso % (Auto) 0.3, Absolute Neuts (auto) 7.2, Absolute Lymphs (auto) 1.57, Nucleated RBC % 0, Syphilis Total Ab Nonreactive, Blood Type O POSITIVE, Antibody Screen NEGATIVE 04/10/25 13:00: Urine Opiates Screen NEGATIVE, U Buprenorphine Qual NEGATIVE, Ur Oxycodone Screen NEGATIVE, Urine Methadone Screen NEGATIVE, Urine Fentanyl Screen NEGATIVE, Ur Barbiturates Screen NEGATIVE, Ur Phencyclidine Scrn NEGATIVE, Ur Amphetamines Screen NEGATIVE, U Benzodiazepines Scrn NEGATIVE, Urine Cocaine Screen NEGATIVE, U Cannabinoids Screen NEGATIVE 04/10/25 16:31: Hep Bs Antigen Nonreactive, Hep Bs Antibody REAC, Hepatitis C Antibody REAC, HIV 1&2 Antibody Nonreactive ROS Constitutional Constitutional: Denies headache(s) Cardiovascular Cardiovascular: Denies chest pain or dyspnea Gastrointestinal Gastrointestinal: Denies nausea or vomiting Genitourinary Genitourinary: Denies dysuria Physical Exam Const alert, oriented x3 and no apparent distress General Appearance: cooperative and comfortable Eyes PERRL and EOMs intact bilaterally Resp normal respiratory effort GI soft to palpation and non-tender Uterus Palpation: uterus fundus firm ( below umbilicus) Extremity normal to inspection and full ROM Neuro oriented x3 and CN's II-XII intact bilaterally Psych mental status grossly normal Assessment & Plan (1) Vaginal delivery: (2) Hepatitis C antibody positive in blood: PLAN: Plan Discharge home
--- NOTE | 2025-04-11 07:20 | DS.PCM_ITS ---
Providers Date of Admission: 04/10/25 Date of Discharge: 04/11/25 Reason For Visit: VAGINAL DELIVERY Diagnosis Discharge Diagnosis (1) Vaginal delivery: Status: Acute Code(s): O80 - Encounter for full-term uncomplicated delivery (2) Hepatitis C antibody positive in blood: Status: Acute Code(s): R76.8 - Other specified abnormal immunological findings in serum Plan Discharge home Medications at Discharge Home Medications fluoxetine 20 mg capsule 20 mg PO DAILY dep 03/17/25 gabapentin 300 mg capsule 300 mg PO TID joint pain 03/17/25 ferrous sulfate 325 mg (65 mg iron) tablet (Feosol) 325 mg PO DAILY 04/10/25 magnesium 200 mg tablet 200 mg PO DAILY 04/10/25 Hospital Course Operations None Procedures None Summary of Care Provided Minutes Spent on Discharge: 20 Hospital Course: Spontaneous labor. . No problems Physical Exam Const alert and no apparent distress Narrative: Fundus firm, below umbilicus. Weight / BMI Weight Weight: 95.254 kg Body Mass Index (BMI) 31.9 ABG / Lab / Microbiology Data 04/10/25 12:15 Laboratory: Laboratory Results - last 24 hr 04/10/25 12:15: WBC 9.6, RBC 3.91 L, Hgb 12.8, Hct 37.7, MCV 96.4, MCH 32.7 H, MCHC 34.0, RDW Std Deviation 48.4 H, RDW Coeff of Roger 13.6, Plt Count 207, MPV 10.8, Immature Gran % (Auto) 0.500, Neut % (Auto) 75.6 H, Lymph % (Auto) 16.4 L, Centre % (Auto) 6.1, Eos % (Auto) 1.1, Baso % (Auto) 0.3, Absolute Neuts (auto) 7.2, Absolute Lymphs (auto) 1.57, Nucleated RBC % 0, Syphilis Total Ab Nonreactive, Blood Type O POSITIVE, Antibody Screen NEGATIVE 04/10/25 13:00: Urine Opiates Screen NEGATIVE, U Buprenorphine Qual NEGATIVE, Ur Oxycodone Screen NEGATIVE, Urine Methadone Screen NEGATIVE, Urine Fentanyl Screen NEGATIVE, Ur Barbiturates Screen NEGATIVE, Ur Phencyclidine Scrn NEGATIVE, Ur Amphetamines Screen NEGATIVE, U Benzodiazepines Scrn NEGATIVE, Urine Cocaine Screen NEGATIVE, U Cannabinoids Screen NEGATIVE 04/10/25 16:31: Hep Bs Antigen Nonreactive, Hep Bs Antibody REAC, Hepatitis C Antibody REAC, HIV 1&2 Antibody Nonreactive D/C Instructions May resume sexual activity in: 6 weeks DC O2, CPAP, BIPAP Needs Home O2 Discharge instructions: No Please Follow Up With: Qi Plummer MD When: Follow up with our office in 1-2 and 6 weeks or as needed. [phone] Meaningful Use Info Meaningful Use Meaningful Use Diagnoses (Choose all that apply): None applicable Discharge Plan Admission Admit Date/Time: 04/10/25 11:20 Primary Reason for Your Visit: labor Attending Provider: Eleanor Haji Discharge Orders/Prescriptions Prescriptions: Continued fluoxetine 20 mg capsule 20 mg PO DAILY gabapentin 300 mg capsule 300 mg PO TID magnesium 200 mg tablet 200 mg PO DAILY ferrous sulfate [Feosol] 325 mg (65 mg iron) tablet 325 mg PO DAILY Disposition Disposition (needs filled in before D/C Order can be placed): Home, Self Care
[2025-04-11] MEDS: Senna/Docusate Sodium 1 Tablet PO (07:47)
[2025-04-11 08:00] VITALS: BP 119/76; PULSE 78; RESP 16; TEMP 36.4; O2SAT 96
--- NOTE | 2025-04-11 13:14 | CASEMGMT ---
Social Work Brief Assessment - Labor and Delivery Unit Patient Address: [address] [place] [address] [place] [address] Phone number: [phone] Date and Time of Referral:? 04/10/25, 1211 Referred By: Dr. Haji Date and time of intervention:?04/11/25, 1100 Reason for Referral:??hx of heroin and meth Sw completed chart review and acknowledges social work consult. Sw presented to bedside and introduced self to mother of baby (KEI- Phoebe) and father of baby (LOLY- Jasson Gavin). Sw explained reason for sw involvement, and parents were welcoming of sw, and completed psychosocial assessment. Informant:?? Medical record, KEI and LOLY. History:? KEI is 34 year old female who is 3, para 2- now 3 following labor and delivery of . KEI received routine care during with [facility]. KEI presented to hospital in active labor and delivered baby via vaginal delivery on 04/10/25 at 39 weeks gestation. Baby boy, named Julio C, was born weighing 7lb 8oz with apgars of 8 and 9 at one and five minutes of life, respectfully. KEI reports that she is breast feeding and it is going well, and baby will be followed by Dr. Sin for pediatrics. KEI and LOLY have been together for 7 years, almost 8 after meeting through Facebook and recovery groups. baby is their third child together, their other children are: Jesus (3) and Nav (1). LOLY also has a 7 year old daughter who he has shared parenting with. Both parents report that they struggled with addiction at the early stages of their relationship, but they sought sobriety together and went through treatment together. 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 KEI staets that she does not drink or do any other type of drugs, but does use nicotine. 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 KEI states that LOLY is her biggest support person and her best friend. Parents report that they never imagined that they would ever be where they are now in life and feel so incredibly blessed for all that they have, including their healthy children. 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 LOLY states that he never thought farming is something that he saw himself doing, but it has become something that he loves and it has sustained their lifestyle and has blessed their family. KEI states that she is thankful for LOLY's employer for being as supportive as he is because LOLY is able to be with the family as his job is flexible, and the girls can also be on the farm and spend time with their dad when able. LOLY denies mental health history. MOB states that she has been diagnosed with ADHD, anxiety and depression. KEI denies having experienced any baby blues or symptoms following her other pregnancies/ deliveries. KEI states that during this she started to feel anxious and has been more on edge, so her psychiatrist at [facility] put her on Prozac along with her gabapentin. MOB states that she has not felt a difference yet since the month that she started her Prozac so they just increased her dosage. MOB states that she is familiar with what signs and symptoms to be on the lookout for during this period, FOB agreed. FOB states that if MOB were to struggle he would know what that looks like and would know how to help and support her. MOB states that LOLY is very good at recognizing when she is struggling and he will help with the girls so that she can regroup and have some time to decompress. MOB states that she is not connected to counseling, but is familiar with resources that are local to her if she felt the need to get connected. MOB states that she has a lot of supports in her life that she can always reach out to and talk to if she feels the need. KEI is connected to Medicaid for insurance and WIC. All necessary baby supplies obtained, including: car seat, safe sleep space, clothes, diapers and wipes. Sw educated parents on shaken baby prevention, and shaken baby prevention. Parents express understanding. Assessment: MOB and baby admitted following labor and delivery of . MOB and FOB with significant substance use history. They were open regarding this history, stating that they were so far in their addiction (living in detached garages, sleeping on lawn mowers and in peoples cars and on the streets) for so long that they never thought they would be where they are now. Parents went through treatment over 5 years ago and worked through recovery and have remained sober over 5 years. MOB and FOB were receptive to talking to sw and were very pleasant, conversation flowed easily and naturally. Parents were knowledgeable about signs and symptoms of baby blues and symptoms to be mindful of going into this period. KEI has a lot of supports that she is able to reach out to if she were to struggle, the biggest one being FOB. MOB states that she does not have thoughts or desires to use substances when she gets overwhelmed or stressed anymore. MOB states that she has healthy and safe coping mechanisms. She enjoys spending time outside and with her children. Parents were observed to have a very calming presence and safe space with each other. MOB was observed holding baby and kissing his face and changed his diaper. ? Plan:?MOB and baby to be discharged on this date, no other needs or concerns at this time.?? No further needs requested or indicated. Ade Escobar, DIET ATTENDANT, [employer]
[2025-04-11 14:00] VITALS: BP 119/75; PULSE 76; RESP 16; TEMP 36.2; O2SAT 96
--- NOTE | 2025-04-15 14:40 | NURSING ---
F/up call attempted, no ans, LVM
== END 2025-04-11 18:40 | disposition home or self-care (01) | DRG 560 ==
LOC: WPOUT 11:24 → WP 11:24
PROVIDERS: Admitting Provider Obstetrics & Gynecology; Referring Provider Obstetrics & Gynecology; Visit Provider Obstetrics & Gynecology
DX: O80 Encounter for full-term uncomplicated delivery (principal); Z37.0 Single live birth; Z3A.39 39 weeks gestation of pregnancy; Z86.19 Personal history of other infectious and parasitic diseases; Z87.891 Personal history of nicotine dependence; O70.0 First degree perineal laceration during delivery
CPT/HCPCS: 36415; 59025; 59050; 80307; 85025; 86703; 86706; 86780; 86803; 86850; 86900; 86901; 87340; 99221; G0378

== ENCOUNTER → 2025-04-10 15:55 | Outpatient (REF) | payer SELFPAY ==
[2025-04-10] VITALS (7 sets, daily range): BP systolic 107–128; BP diastolic 61–78; PULSE 84–108; O2SAT 91
--- OUTSIDE RECORDS SUMMARY | 2025-04-10 23:06 | XMS RPT_ITS | CCD ---
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 Role Phone [employer] Unavailable Unavailable Petrilla, Anoop Unavailable Unavailable KINKOPF, KIMI Unavailable Unavailable PETRILLA, ANOOP Unavailable Unavailable Petrilla, Anoop F Primary Care Provider Unavailable Primary Care Provider Unavailwillie diggs Unavailable Primary Care Provider UnavailNewton Kaminski MD Primary Care Provider Newton Tovar MD Primary Care Provider Newton Tovar MD Primary Care Provider Martha PROCUREMENT TECHNICIAN.Rosette SILVA Unavailable Mamie Baxter PA-C Unavailable No, Physician Primary Care Provider UnavailJOSHUA Temple Attending Unavailable NO, PHYSICIAN Primary Care Unavailable Knlorri PROCUREMENT TECHNICIAN.Rosette SILVA Unavailable Mamie Baxter PA-C Unavailable Kristen Farr CNM Attending Provider Martha PROCUREMENT TECHNICIAN.Rosette SILVA Unavailable Mamie Baxter PA-C Unavailable Kristen Farr Attending Unavailable NEWTON TOVAR Primary Care Unavailable CHRISTIAN NERI Attending Unavail able NEWTON TOVAR Primary Care Unavailable KERVIN OVALLE Attending Unavailable NEWTON TOVAR Primary Care Unavailable MAMIE BAXTER Referring Unavailable DYANA COLLAZO Attending Unavailable NEWTON TOVAR Primary Care Unavailable RUKHSANA MCKINNON Referring Unavailable ORACIO MILES Attending Unavailable NEWTON TOVAR Primary Care Unavailable ZENA FONTENOT Referring Unavailable NEWTON TOVAR Primary Care Unavailable MAMIE BAXTER Referring Unavailable AUGUST CANALES Attending Unavailable GUY, NEWTON A Primary Care Unavailable VINCENT THOMAS Attending Unavailable CHICHI BELL Attending Unavailable GUY, NEWTON A Primary Care Unavailable SELF Referring Unavailable GUY, NEWTON A Primary Care Unavailable SELF Referring Unavailable KERVIN OVALLE Attending Unavailable GUY, NEWTON A Primary Care Unavailable KERVIN OVALLE Attending Unavailable GUY, NEWTON A Primary Care Unavailable KERVIN OVALLE Attending Unavailable GUY, NEWTON A Primary Care Unavailable MAMIE BAXTER Referring Unavailable DYANA COLLAZO Attending Unavailable GUY, NEWTON A Primary Care Unavailable MAMIE BAXTER Referring Unavailable DYANA COLLAZO Attending Unavailable GUY, NEWTON A Primary Care Unavailable ZENA FONTENOT Referring Unavailable GUY, NEWTON A Primary Care Unavailable CHRISTIAN NERI Attending Unavail able GUY, NEWTON A Primary Care Unavailable KERVIN OVALLE Attending Unavailable GUY, NEWTON A Primary Care Unavailable ZENA FONTENOT Attending Unavailable GUY, NEWTON A Primary Care Unavailable MAMIE BAXTER Referring Unavailable GUY, NEWTON A Primary Care Unavailable RAJGUJLUIS, KALYANI J Referring Unavailable RAJGURU, KALYANI J Attending Unavailable GUY, NEWTON A Primary Care Unavailable RAJGURU, KALYANI J Referring Unavailable GUY, NEWTON A Primary Care Unavailable RAJGURU, KALYANI J Referring Unavailable RAJGURU, KALYANI J Attending Unavailable GUY, NEWTON A Primary Care Unavailable HASHY, ZENA Referring Unavailable RUKHSANA MCKINNON Attending Unavailable GUY, NEWTON A Primary Care Unavailable ZENA FONTENOT Referring Unavailable GUY, NEWTON A Primary Care Unavailable RUKHSANA MCKINNON Attending Unavailable GUY, NEWTON A Primary Care Unavailable MAMIE BAXTER Referring Unavailable GUY, NEWTON A Primary Care Unavailable RUKHSANA MCKINNON Referring Unavailable GUY, NEWTON A Primary Care Unavailable RAJGURU, KALYANI J Referring Unavailable RAJGURU, KALYANI J Attending Unavailable GUY, NEWTON A Primary Care Unavailable RAJGURU, KALYANI J Referring Unavailable RAJGURU, KALYANI J Attending Unavailable GUY, NEWTON A Primary Care Unavailable MAMIE BAXTER Attending Unavailable GUY, NEWTON A Primary Care Unavailable VINCENT THOMAS Referring Unavailable Medications Current Medications Medication Drug Class(es) Dates Sig (Normalized) Sig (Original) acetaminophen 500 mg oral tablet (20 sources) Start: 01-26-2025 take 1 tablet by mouth every six hours as needed acetaminophen (TYLENOL EXTRA STRENGTH) 500 mg tablet Take 1 tablet by mouth every 6 hours as needed for pain. 30 tablet 01/26/2025 Active Start: 05-22-2021 End: 05-06-2023 take 1 tablet by mouth every six hours as needed acetaminophen (TYLENOL EXTRA STRENGTH) 500 mg tablet Take 1 tablet by mouth every 6 hours as needed for pain. 30 tablet 01/26/2025 Active Start: 05-22-2021 End: 05-06-2023 take 1000 mg by mouth every six hours as needed Acetaminophen Active 1000 MG PO EVERY 6 HOURS NEEDED 0 May 06, 2023 12:00am End: 01-26-2025 acetaminophen 325 mg cap Kenroy e by mouth as directed. 01/26/2025 Discontinued Comment on above: Take by mouth as dir ected. amoxicillin 875 mg / clavulanate 125 mg oral tablet (2 sources) Penicillin-class Antibacterial Start: End: take 1 tablet by mouth twice daily amoxicillin-clavula dennis potassium (AUGMENTIN) 875-125 mg per tablet Take 1 tablet by mouth two times a day for 5 days. 10 tablet 01/26/2025 01/31/2025 Active aspirin 81 mg delayed release oral tablet (20 sources) Platelet Aggregation Inhibitor, Nonsteroidal Anti-inflammatory Drug Start: take 1 tablet by mouth once daily aspirin, enteric coated (ECOTRIN LOW STRENGTH) 81 mg EC tablet Indications: Supervision of high risk , antepartum (HCC) , History of gestational diabetes in prior , currently (HCC) , History of intravenous drug use in remission , History of depression , History of hepatitis C Take 1 tablet by mouth once daily. 90 tablet 3 09/20/2024 Active Start: 04-16-2023 End: 05-06-2023 take 1 capsule by mouth once daily Aspirin 81 mg capsule Discontinued 81 mg PO DAILY April 16, 2023 12:00am May 06, 2023 8:37am buprenorphine 8 mg sublingual tablet (3 sources) Partial Opioid Agonist Start: 04-28-2019 End: 04-28-2019 buprenorphine (SUBUTEX) SL tablet 8 mg buprenorphine (S UBUTEX) 8 MG SUBL SL tablet Place 8 mg under the tongue daily 0 Active cefadroxil 500 mg oral capsule (2 sources) Cephalosporin Antibacterial Start: 11-11-2022 End: 11-18-2022 take 1 capsule by mouth twice daily cefADROxil (DURICEF) 500 mg capsule Take 1 capsule by mouth twice daily for 7 days. 14 capsule 0 11/11/2022 11/18/2022 Active Comment on above: Take 1 capsule by mouth twice daily for 7 days. 0.4 ml enoxaparin sodium 100 mg/ml prefilled syringe (1 source) Low Molecular Weight Heparin Start: 04-29-2019 inject 40 mg by subcutaneous injection once daily 40 mg, Subcutaneous, DAILY, First dose on Mon04/29/19 at 0900 ferrous sulfate (8 sources) take 1 mg by mouth once daily FLUoxetine 10 mg oral capsule (20 sources) Serotonin Reuptake Inhibitor Start: 04-07-2025 End: 06-06-2025 take 1 capsule by mouth once daily FLUoxetine (PROZAC) 10 mg capsule Take 1 capsule by mouth once daily. Take with 20 mg dose. 30 capsule 1 04/07/2025 06/06/2025 Active Start: 12-24-2024 End: 06-06-2025 take 1 capsule by mouth once daily FLUoxetine (PROZAC) 20 mg capsule Take 1 capsule by mouth once daily. 30 capsule 1 02/19/2025 04/07/2025 Discontinued Start: 07-01-2024 End: 10-26-2024 take 3 capsules by mouth once daily FLUoxetine (PROZAC) 20 mg capsule Take 3 capsules by mouth once daily. 90 capsule 1 08/27/2024 09/20/2024 Discontinued Start: 03-04-2024 End: 07-01-2024 take 2 capsules by mouth once daily FLUoxetine (PROZAC) 40 mg capsule Take 2 capsules by mouth once daily. 60 capsule 05/30/2024 07/01/2024 Discontinued Start: 01-01-2024 End: 04-26-2024 take 1 capsule by mouth once daily FLUoxetine (PROZAC) 20 mg capsule Take 1 capsule by mouth once daily. Take with 40 mg dose. 30 capsule 1 02/26/2024 03/04/2024 Discontinued Start: 11-27-2023 End: 04-26-2024 take 1 capsule by mouth once daily FLUoxetine (PROZAC) 40 mg capsule Take 1 capsule by mouth once daily. Take with 20 mg dose. 30 capsule 1 02/26/2024 03/04/2024 Discontinued Start: 10-24-2023 End: 11-27-2023 take 1 capsule by mouth once daily FLUoxetine (PROZAC) 20 mg capsule Take 1 capsule by mouth once daily. 30 capsule 1 10/24/2023 11/27/2023 Discontinued End: 04-28-2019 take 1 capsule by mouth twice daily FLUoxetine (PROZAC) 20 MG capsule Take 20 mg by mouth 2 times daily 0 04/28/2019 Discontinued (Therapy completed) Comment on above: Take 1 capsule by mo uth once daily. Take 1 capsule by mo uth once daily. Take with 20 mg dose. Take 1 capsule by mo uth once daily. Take with 40 mg dose. gabapentin 300 mg oral capsule (20 sources) Anti-epileptic Agent Start: 04-07-2025 End: 06-06-2025 take 1 capsule by mouth four times daily gabapentin (NEURONTIN) 300 mg capsule Take 1 capsule by mouth four times daily for 60 days. 120 capsule 1 04/07/2025 06/06/2025 Active Start: 12-17-2024 End: 04-20-2025 take 1 capsule by mouth three times daily gabapentin (NEURONTIN) 300 mg capsule Take 1 capsule by mouth three times a day for 60 days. 90 capsule 1 02/19/2025 04/07/2025 Discontinued Start: 03-04-2024 End: 11-16-2024 take 1 capsule by mouth three times daily gabapentin (NEURONTIN) 300 mg capsule Take 1 capsule by mouth three times a day for 30 days. 90 capsule 10/17/2024 Active Start: 02-05-2024 End: 03-27-2024 take 2 capsules by mouth every eight hours as needed gabapentin (NEURONTIN) 100 mg capsule Take 2 capsules by mouth three times a day as needed (anxiety) for up to 30 days. 180 capsule 0 02/26/2024 03/04/2024 Discontinued Start: 11-27-2023 End: 01-31-2024 take 2 capsules by mouth every eight hours as needed gabapentin (NEURONTIN) 100 mg capsule Take 2 capsules by mouth three times a day as needed (anxiety) for up to 30 days. 180 capsule 0 01/01/2024 01/31/2024 Active Start: 10-30-2023 End: 12-29-2023 take 1 capsule by mouth every eight hours as needed gabapentin (NEURONTIN) 100 mg capsule Take 1 capsule by mouth three times a day as needed (anxiety) for up to 60 days. 90 capsule 1 10/30/2023 11/27/2023 Discontinued gabapentin (NEUR ONTIN) 300 MG capsule Take 1 (one) capsule (300 mg total) by mouth every 8 (eight) hours (Days supply per fill: 30 . Active End: 04-28-2019 take 1 capsule by mouth three times daily gabapentin (NEURONTIN) 300 MG capsule Take 300 mg by mouth 3 times daily 0 04/28/2019 Discontinued (LIST CLEANUP) Comment on above: Take 1 capsule by mo uth three times a day as needed (anxiety) for up to 60 days. Take 2 capsules by m outh three times a day as needed (anxiety) for up to 30 days. magnesium hydroxide 80 mg/ml oral suspension (1 source) Start: 04-28-20 take 30 mL by mouth once daily as needed for constipation 30 mL, Oral, DAILY PRN, Constipation, Starting 04/28/19 at 2343 First line therapy for constipation. magnesium oxide 420 mg oral tablet (20 sources) Start: 10-04-19 take 1 tablet by mouth once daily Magnesium Oxide 420 mg tab Take 1 tablet by mouth once daily. 100 tablet 2 10/04/2024 Active 24 hr nicotine 0.875 mg/hr transdermal system (1 source) Cholinergic Nicotinic Agonist Start: 04-28-20 nicotine (NICODERM CQ) 21 MG/24HR 1 patch 2 ml ondansetron 2 mg/ml injection (1 source) Serotonin-3 Receptor Antagonist Start: 04-28-20 4 mg, Intravenous, EVERY 6 HOURS PRN, Nausea, Starting 04/28/19 at 2343 piperacillin 4000 mg / tazobactam 500 mg injection (3 sources) Penicillin-class Antibacterial, beta Lactamase Inhibitor Start: 04-28-20 End: 04-28-20 piperacillin-tazo bactam (ZOSYN) 4.5 g in dextrose 100 mL IVPB extended infusion (premix) Start: 04-28-2019 piperacillin-t azobactam (ZOSYN) 3.375 g in dextrose 50 mL IVPB extended infusion (premix) Lseocmtu-Dxw-Yt-Fa (3 sources) Start: 05-20-2021 take 1 tablet by mouth once daily Ixmqfnwz-Qph-Io-Fa Active 1 TABLET PO DAILY May 20, 2021 12:00am Start: 05-20-2021 take 1 tablet by katia th once daily Ozbcjnmf-Iwx-Uo-Fa Active 1 TABLET PO DAILY May 19, 2021 11:00pm vitamin with Ca-Iron-FA 27-1 mg Tab (1 source) take 1 tablet by mouth once daily vitamin with Ca-Iron-FA 27-1 mg Tab Take 1 (one) tablet by mouth daily . Active 3 ml sodium chloride 9 mg/ml injection (2 sources) Start: 04-29-2019 10 mL, Intravenous, EVERY 12 HOURS SCHEDULED (2 times per day), First dose on 04/29/19 at 0900 Start: 04-28-2019 take 10 mL intraveno us route once as needed 10 mL, Intravenous, PRN, Line Care, After every IV line use, Starting Mon04/28/19 at 2343 sodium chloride flush 0.9 % injection 3 mL (1 source) Start: 04-28-2019 sodium chlorid e flush 0.9 % injection 3 mL vancomycin (VANCOCIN) 1500 m g in dextrose 5 % 250 mL IVPB (2 sources) Start: 04-29-2019 vancomycin (VA NCOCIN) 1500 mg in dextrose 5 % 250 mL IVPB Start: 04-28-2019 End: 04-28-2019 vancomycin (VANCOCIN) 1500 m g in dextrose 5 % 250 mL IVPB Completed/Discontinued Medications Medication Drug Class(es) Dates Sig (Normalized) Sig (Original) benzocaine 200 mg/ml / menthol 5 mg/ml topical spray (4 sources) Standardized Chemical Allergen Start: 05-22-2021 End: 04-16-2023 Benzocaine-Menthol (Dermoplast (With Menthol)) 20-0.5 % Aerosol Discontinued 1 NMA TOPICAL 3 TIMES DAILY NEEDED as needed for perineal discomfort 0 0 May 22, 2021 12:00am April 16, 2023 4:55pm Please contact the information source for Protocol details. Start: 05-22-2021 End: 04-16-2023 apply 1 spray(s) topically three times daily as needed Benzocaine-Menthol (Dermoplast (With Menthol)) 20-0.5 % Aerosol Discontinued 1 SPRAY TOPICAL 3 TIMES DAILY NEEDED 0 May 22, 2021 12:00am April 16, 2023 4:55pm buPROPion hydrochloride 100 mg oral tablet (9 sources) Aminoketone Start: 03-04-2024 End: 07-01-2024 take 1 tablet by mouth twice daily buPROPion (WELLBUTRIN) 100 mg tablet Take 1 tablet by mouth two times a day. 60 tablet 1 05/02/2024 05/30/2024 Discontinued (Side Effects) cholecalciferol 0.025 mg oral tablet (9 sources) Vitamin D End: 10-26-2022 take 1 tablet by mouth once daily cholecalciferol (VITAMIN D3) 1,000 unit tab tablet Take 1,000 Units by mouth once daily. 0 10/26/2022 Discontinued Comment on above: Take 1,000 Units by mouth once daily. famotidine 20 mg oral tablet (13 sources) Histamine-2 Receptor Antagonist Start: 02-14-2025 End: 05-15-2025 take 1 tablet by mouth every twelve hours as needed famotidine (PEPCID) 20 mg tablet Take 1 tablet by mouth two times a day as needed. 60 tablet 2 02/14/2025 03/20/2025 Discontinued (Course of therapy completed) Start: 04-29-2019 20 mg, Intrave nous, 2 TIMES DAILY, First dose on 04/29/19 at 0000 Administer over 2 minutes. hydrocortisone 25 mg/ml topical cream (11 sources) Corticosteroid Start: 11-19-2021 End: 10-26-2022 hydrocortisone (ANUSOL-HC) 2.5 % rectal cream by RECTAL route twice daily. 30 g 1 11/19/2021 10/26/2022 Discontinued Comment on above: by RECTAL route twic e daily. hydrOXYzine hydrochloride 25 mg oral tablet (2 sources) Antihistamine Start: 12-22-2016 End: 04-28-2019 take 1 tablet by mouth every six hours as needed hydrOXYzine (ATARAX) 25 MG tablet Take 1 tablet by mouth every 6 hours as needed for Itching 20 tablet 0 12/22/2016 04/28/2019 Discontinued (LIST CLEANUP) ibuprofen 600 mg oral tablet (4 sources) Nonsteroidal Anti-inflammatory Drug Start: 05-22-2021 End: 04-16-2023 take 1 tablet by mouth every six hours as needed for pain Ibuprofen 600 mg Tablet Discontinued 600 mg PO EVERY 6 HOURS NEEDED as needed for Pain Score 1-3 0 0 May 22, 2021 12:00am April 16, 2023 4:55pm insulin isophane, human 100 unt/ml injectable suspension (15 sources) Start: 05-04-2023 End: 05-06-2023 Insulin Nph Isoph U-100 Human [Insulin Nph Isoph U-100 Human 100 Unit/Ml Subcutaneous Suspension] (Insulin Nph Isoph U-100 Human 100 Unit/Ml ) 100 unit/mL suspension Discontinued U SC May 04, 2023 12:00am May 06, 2023 8:37am gestational diabetes Start: 05-04-2023 End: 05-06-2023 Insulin Nph Isoph U-100 Frances n [Insulin Nph Isoph U-100 Human 100 Unit/Ml Subcutaneous Suspension] (Insulin Nph Isoph U-100 Human 100 Unit/Ml ) 100 unit/mL suspension Discontinued UNIT SC May 04, 2023 12:00am May 06, 2023 8:37am Start: 04-28-2023 End: 10-24-2023 HUMULIN N NPH U-100 INSULIN 100 unit/mL injection Inject 14 Units subcutaneously daily at bedtime. 10 mL 0 04/28/2023 10/24/2023 Discontinued Start: 04-17-2023 End: 04-28-2023 inject 10 [IU] by subcutaneous injection once daily at bedtime HUMULIN N NPH U-100 INSULIN 100 unit/mL injection Inject 10 Units subcutaneously daily at bedtime. 10 mL 0 04/17/2023 04/28/2023 Discontinued (Adjust Sig - Block E-Cancel) Comment on above: Inject 10 Units subc utaneously daily at bedtime. Inject 14 Units subc utaneously daily at bedtime. Lancing Device (TRUEDRAW LANCING DEVICE) misc (16 sources) Start: 03-14-2023 End: 10-24-2023 Lancing Device (TRUEDRAW LANCING DEVICE) misc 1 Each four times daily. 1 Each 3 03/14/2023 10/24/2023 Discontinued Start: 03-14-2023 Lancing Device (TRUEDRAW LANCING DEVICE) misc 1 Each four times daily. 1 Each 3 03/14/2023 Active Comment on above: 1 Each four times da zainab. Magnesium (20 sources) Start: 04-05-2023 End: 10-24-2023 take 1 tablet by mouth once daily Magnesium 200 mg tab Take 1 tablet by mouth once daily. 30 tablet 2 04/05/2023 10/24/2023 Discontinued Start: 04-05-2023 take 1 tablet by katia th once daily Magnesium 200 mg tab Take 1 tablet by mouth once daily. 30 tablet 2 04/05/2023 Active End: 04-05-2023 MAGNESIUM ORAL Take by mouth . 0 04/05/2023 Discontinued MAGNESIUM ORAL T bryan by mouth. 0 Active Comment on above: Take by mouth. Take 1 tablet by katia th once daily. meloxicam 15 mg oral tablet (13 sources) Nonsteroidal Anti-inflammatory Drug Start: End: take 1 tablet by mouth once daily meloxicam (MOBIC) 15 mg tablet Indications: Chronic pain of both hips , Hip dysplasia, acquired, right Take 1 tablet by mouth once daily. Patient should start on August 14, 2024. 30 tablet 5 08/14/2024 10/04/2024 Discontinued Start: 08-14-2024 take 1 tablet by katia th once daily meloxicam (MOBIC) 15 mg tablet Indications: Chronic pain of both hips , Hip dysplasia, acquired, right Take 1 tablet by mouth once daily. Patient should start on August 14, 2024. 30 tablet 5 08/14/2024 Active Start: 08-14-2024 take 1 tablet by katia th once daily meloxicam (MOBIC) 15 mg tablet Indications: Chronic pain of both hips , Hip dysplasia, acquired, right Take 1 tablet by mouth once daily. Patient should start on August 14, 2024. 30 tablet 5 08/14/2024 Active Start: 08-14-2024 take 1 tablet by katia th once daily meloxicam (MOBIC) 15 mg tablet Indications: Chronic pain of both hips , Hip dysplasia, acquired, right Take 1 tablet by mouth once daily. Patient should start on August 14, 2024. 30 tablet 5 08/14/2024 Active Start: 06-17-2024 End: 07-16-2024 take 1 tablet by mouth once daily meloxicam (MOBIC) 15 mg tablet Indications: Chronic pain of both hips , Hip dysplasia, acquired, right Take 1 tablet by mouth once daily. 30 tablet 1 06/17/2024 07/16/2024 Discontinued metoclopramide 10 mg oral tablet (20 sources) Dopamine-2 Receptor Antagonist Start: 04-16-2023 End: 05-06-2023 take 1 tablet by mouth every six hours Metoclopramide Hcl (Reglan) 10 mg tablet Discontinued 10 mg PO EVERY 6 HOURS April 16, 2023 12:00am May 06, 2023 8:37am migraines Start: 02-01-2023 End: 10-24-2023 take 1 tablet by mouth every six hours as needed metoclopramide HCl (REGLAN) 10 mg tablet Take 1 tablet by mouth four times daily as needed. 30 tablet 1 04/05/2023 10/24/2023 Discontinued Comment on above: Take 1 tablet by [facility] four times daily as needed. MULTI-VITAMIN ORAL (1 source) End: 01-04-2022 MULTI-VITAMIN ORAL Take by mouth as directed. 0 01/04/2022 Discontinued (Other) Comment on above: Take by mouth as dir ected. [place]-3 1,050 mg, Fish Oil, (OMEGA-3 2100) 1,050-1,200 mg cap (15 sources) Start: 04-05-2023 End: 10-24-2023 take 1 capsule by mouth once daily [place]-3 1,050 mg, Fish Oil, (OMEGA-3 2100) 1,050-1,200 mg cap Take 1 capsule by mouth once daily. 30 capsule 3 04/05/2023 10/24/2023 Discontinued Start: 04-05-2023 take 1 capsule by [facility] once daily [place]-3 1,050 mg, Fish Oil, (OMEGA-3 2100) 1,050-1,200 mg cap Take 1 capsule by mouth once daily. 30 capsule 3 04/05/2023 Active Comment on above: Take 1 capsule by [facility] once daily. omega-3/dha/epa/dpa/fi sh oil (OMEGA-3 2100 ORAL) (20 sources) End: 04-05-2023 omega-3/dha/epa/dpa/fish oil (OMEGA-3 2100 ORAL) Take by mouth. 0 04/05/2023 Discontinued omega-3/dha/epa/ dpa/fish oil (OMEGA-3 2100 ORAL) Take by mouth. 0 Active Comment on above: Take by mouth. permethrin 50 mg/ml topical cream (2 sources) Pyrethroid Start: 12-22-2016 End: 04-28-2019 permethrin (ELIMITE) 5 % cream Apply topically to entire body or affected areas once, leave on for 8 hours, then rinse. May repeat in 1-2 weeks if symptoms persist. 1 Tube 1 12/22/2016 04/28/2019 Discontinued (LIST CLEANUP) PNV Comb #3-Wmdq-Drrkw 3-FA (COMPLETE CHRIST DHA) 29 mg iron- 1 mg-200 mg cmpk (20 sources) Start: 10-04-2024 End: 03-20-2025 take 1 dose by mouth once daily PNV Comb #6-Eguv-Wrymq 3-FA (COMPLETE DHA) 29 mg iron- 1 mg-200 mg cmpk Take 1 Dose by mouth once daily. 60 Each 11 10/04/2024 03/20/2025 Discontinued (Course of therapy completed) Start: 10-04-2024 take 1 dose by mouth once daily PNV Comb #9-Ffoo-Plcpt 3-FA (COMPLETE DHA) 29 mg iron- 1 mg-200 mg cmpk Take 1 Dose by mouth once daily. 60 Each 11 10/04/2024 Active PNV no.95/ferrous fum/folic ac ( ORAL) (3 sources) End: 10-04-2024 PNV no.95/ferrous fum/folic ac ( ORAL) Take by mouth. 10/04/2024 Discontinued PNV no.95/ferrou s fum/folic ac ( ORAL) Take by mouth. Active Ltfqvzlw-Vs-Ovz-Fe-FA ( VITAMIN) tab (20 sources) End: 08-27-2024 take 1 tablet by mouth once Crbjyljn-Vq-Ijl-Fe-FA ( VITAMIN) tab Take 1 tablet by mouth. 08/27/2024 Discontinued (Course of therapy completed) take 1 tablet by mouth once Pren atal Tasuuufj-Xe-Sqb-Fe-FA ( VITAMIN) tab Take 1 tablet by mouth. Active take 1 tablet by mouth once Pren atal Epukkhra-Hl-Ljn-Fe-FA ( VITAMIN) tab Take 1 tablet by mouth. 0 Active Comment on above: Take 1 tablet by katia th. Kpedjybn-Cre-Iz-Fa 1 mg Tablet (1 source) Start: End: take 1 tablet by mouth once daily Qlqboobc-Vjj-Xb-Fa 1 mg Tablet Discontinued 1 {tbl} PO DAILY May 20, 2021 12:00am March 17, 2025 9:37pm promethazine hydrochloride 25 mg oral tablet (4 sources) Phenothiazine Start: take 1 tablet by mouth every six hours as needed promethazine (PHENERGAN) 25 mg tablet Take 1 tablet by mouth every 6 hours as needed for nausea/vomiting. 15 tablet 0 11/11/2022 Active Comment on above: Take 1 tablet by katia th every 6 hours as needed for nausea/vomiting. propranolol hydrochloride 20 mg oral tablet (3 sources) beta-Adrenergic Vanessa Start: End: propranolol (INDERAL) 20 mg tablet Take 10 mg (1/2 tab) to 40 mg (2 tab) by mouth up to twice daily as needed for anxiety. Heart rate must be above 60 to take. 0 08/02/2022 11/10/2022 Discontinued Comment on above: Take 10 mg (1/2 tab) to 40 mg (2 tab) by mouth up to twice daily as needed for anxiety. Heart rate must be above 60 to take. pseudoephedrine hydrochloride 60 mg oral tablet (3 sources) alpha-Adrenergic Agonist Start: End: take 0.5 tablet by mouth every four hours as needed pseudoephedrine (SUDAFED) 60 mg tablet Take 0.5 tablets by mouth every 4 hours as needed. 30 tablet 01/26/2025 02/14/2025 Discontinued riboflavin, vitamin B2, (VITAMIN B-2 ORAL) (9 sources) End: riboflavin, vitamin B2, (VITAMIN B-2 ORAL) Take by mouth. 0 10/26/2022 Discontinued riboflavin, alberto min B2, (VITAMIN B-2 ORAL) Take by mouth. 0 Active Comment on above: Take by mouth. sertraline 50 mg oral tablet (3 sources) Serotonin Reuptake Inhibitor Start: 08-02-20 End: 02-23-20 23 take 0.5 tablet by mouth once daily, then take 1 tablet by mouth once daily sertraline (ZOLOFT) 50 mg tablet TAKE 1/2 (ONE-HALF) OF A TABLET BY MOUTH DAILY FOR 7 DAYS THEN INCREASE TO ONE TABLET DAILY 0 08/02/2022 11/10/2022 Discontinued Comment on above: TAKE 1/2 (ONE-HALF) OF A TABLET BY MOUTH DAILY FOR 7 DAYS THEN INCREASE TO ONE TABLET DAILY silver sulfADIAZINE 10 mg/ml topical cream (18 sources) Sulfonamide Antibacterial Start: 02-21-20 End: 08-27-20 silver sulfADIAZINE (SILVADENE) 1 % cream Apply to affected area once daily. 50 g 02/21/2024 08/27/2024 Discontinued (Course of therapy completed) traZODone hydrochloride 50 mg oral tablet (2 sources) Serotonin Reuptake Inhibitor End: 04-28-20 take 1 tablet by mouth once daily traZODone (DESYREL) 50 MG tablet Take 50 mg by mouth nightly 0 04/28/2019 Discontinued (LIST CLEANUP) Problems Active Problems Problem Classification Problem Date Documented Da te Episodic/Chronic Administrative/social admission (2 sources) Stress; Translations: [Other specified problems related to psychosocial circumstances] Onset: 04-07-2025 04-07-2025 Episodic Allergic reactions (1 source) Eczema; Translations: [Dermatitis, unspecified] 01-16-2024 Episodic Anxiety disorders (9 sources) Panic disorder with agoraphobia; Translations: [Agoraphobia with panic disorder] Onset: 08-27-2024 10-30-2023 Chronic Attention-deficit, conduct, and disruptive behavior disorders (20 sources) Attention deficit hyperactivity disorder; Translations: [Attention-deficit hyperactivity disorder, unspecified type] Onset: 09-20-2024 09-20-2024 Chronic Biliary tract disease (8 sources) Calculus of gallbladder with cholecystitis; Translations: [Calculus of gallbladder with chronic cholecystitis without obstruction] Onset: 03-20-2025 03-18-2025 Episodic Barraza (1 source) Superficial partial thickness burn of forearm; Translations: [Burn of second degree of unspecified forearm, initial encounter] 02-21-2024 Episodic Disorders of teeth and jaw (3 sources) Periapical abscess without sinus; Translations: [Dental caries, unspecified] Onset: 01-31-2018 Episodic Genitourinary symptoms and ill-defined conditions (1 source) Increased frequency of urination; Translations: [Frequency of micturition] 06-28-2023 Episodic Immunizations and screening for infectious disease (11 sources) Hepatitis C antibody test positive; Translations: [Other specified abnormal immunological findings in serum] Onset: 02-14-2025 05-20-2021 Episodic Comment on above: viral load negative 10/10/22 Mood disorders (20 sources) Depressive disorder; Translations: [Recurrent major depressive episodes, moderate ] Onset: 04-18-2016 05-16-2016 Chronic Other aftercare (3 sources) Long-term current use of drug therapy; Translations: [Other [place] [facility] (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] 08-27-2024 Episodic Other complications of ; puerperium affecting management of mother (1 source) Large for gestation age fetus 05-04-2023 Episodic Comment on above: EFW 90%, AC >99% Other complications of (20 sources) Obesity; Translations: [Obesity complicating , unspecified trimester] Onset: 10-01-2020 Chronic Other complications of (1 source) Maternal obesity complicating , childbirth and the puerperium, antepartum; Translations: [Obesity complicating , second trimester] 04-05-2023 Chronic Other complications of (2 sources) Anemia of ; Translations: [Anemia complicating , third trimester] 02-14-2025 Chronic Other complications of (1 source) Anemia complicating , third trimester; Translations: [Anemia during in third trimester (HCC)] Onset: 02-14-2025 Chronic Other complications of (2 sources) Maternal care for other abnormalities of cervix, unspecified trimester; Translations: [Other congenital or acquired abnormality of cervix, unspecified as to episode of care or not applicable] 04-16-2023 Episodic Other complications of (12 sources) Anxiety in ; Translations: [Other mental disorders complicating , unspecified trimester] Onset: 09-20-2024 09-20-2024 Episodic Other complications of (1 source) tachycardia affecting management of mother; Translations: [Maternal care for abnormalities of the heart rate or rhythm, unspecified trimester, not applicable or unspecified] 02-14-2025 Episodic Other complications of (2 sources) Abdominal pain in ; Translations: [Other specified related conditions, unspecified trimester] 03-17-2025 Episodic Other complications of (2 sources) Supervision of high risk , unspecified, unspecified trimester; Translations: [Supervision of high risk , antepartum (HCC)] Onset: 09-20-2024 Episodic Other complications of (1 source) Other specified related conditions, third trimester; Translations: [Heartburn during in third trimester (HCC)] Onset: 02-14-2025 Episodic Other complications of (1 source) Maternal care for abnormalities of the heart rate or rhythm, unspecified trimester, not applicable or unspecified; Translations: [Maternal care for tachycardia during (HCC)] Onset: 02-14-2025 Episodic Other complications of (1 source) Supervision of high risk , unspecified, second trimester; Translations: [Supervision of high risk in second trimester (HCC)] Onset: 01-29-2025 Episodic Other connective tissue disease (1 source) Spasm; Translations: [Cramp and spasm] Episodic Other female genital disorders (5 sources) Vaginal discharge; Translations: [Other specified noninflammatory disorders of vagina] Episodic Other female genital disorders (3 sources) Vaginal odor; Translations: [Other specified noninflammatory disorders of vagina] Episodic Other female genital disorders (1 source) Other specified noninflammatory disorders of vagina; Translations: [Vaginal odor] Onset: 03-24-2025 Episodic Other gastrointestinal disorders (1 source) Heartburn; Translations: [Heartburn during in third trimester (HCC)] Onset: 02-14-2025 Episodic Other nervous system disorders (2 sources) Disturbance of attention; Translations: [Attention and concentration deficit] 08-30-2024 Chronic Other nervous system disorders (1 source) Attention and concentration deficit; Translations: [Attention and concentration deficit] Onset: 08-27-2024 Chronic Other nervous system disorders (1 source) Other chronic pain; Translations: [Chronic pain of both hips] Onset: 05-03-2024 Chronic Other and delivery including normal (17 sources) Early stage of ; Translations: [Encounter for supervision of normal , unspecified, unspecified trimester] Onset: 09-04-2024 Episodic Other screening for suspected conditions (not mental disorders or infectious disease) (16 sources) Patient encounter status; Translations: [Encounter for screening for nuchal translucency] Onset: 07-16-2024 Episodic Other skin disorders (1 source) Folliculitis; Translations: [Follicular disorder, unspecified] Episodic Other skin disorders (1 source) Keratosis pilaris; Translations: [Other specified epidermal thickening] 01-16-2024 Episodic Other upper respiratory infections (5 sources) Sore throat symptom; Translations: [Acute pharyngitis, unspecified] Onset: 01-26-2025 Episodic Polyhydramnios and other problems of amniotic cavity (3 sources) Amniotic fluid leaking; Translations: [Premature rupture of membranes, unspecified as to length of time between rupture and onset of labor, unspecified weeks of gestation] 05-04-2023 Episodic Residual codes; unclassified (20 sources) Nicotine-filled electronic cigarette user; Translations: [Tobacco use] Onset: 09-16-2022 Episodic Residual codes; unclassified (7 sources) Gestation period, 37 weeks; Translations: [37 weeks gestation of ] 05-20-2021 Episodic Comment on above: @ 37&1 Residual codes; unclassified (3 sources) Gestation period, 12 weeks; Translations: [12 weeks gestation of ] Episodic Residual codes; unclassified (2 sources) Gestation period, 16 weeks; Translations: [16 weeks gestation of ] Episodic Residual codes; unclassified (3 sources) Gestation period, 20 weeks; Translations: [20 weeks gestation of ] Episodic Residual codes; unclassified (1 source) Gestation period, 28 weeks; Translations: [28 weeks gestation of ] Episodic Residual codes; unclassified (2 sources) Gestation period, 29 weeks; Translations: [29 weeks gestation of ] Episodic Residual codes; unclassified (3 sources) Gestation period, 33 weeks; Translations: [33 weeks gestation of ] 04-05-2023 Episodic Residual codes; unclassified (4 sources) Gestation period, 34 weeks; Translations: [34 weeks gestation of ] 04-17-2023 Episodic Residual codes; unclassified (1 source) Gestation period, 35 weeks; Translations: [35 weeks gestation of ] 04-24-2023 Episodic Residual codes; unclassified (5 sources) Gestation period, 36 weeks; Translations: [36 weeks gestation of ] 04-28-2023 Episodic Residual codes; unclassified (2 sources) Past history of procedure; Translations: [Personal history of other medical treatment] 05-04-2023 Episodic Comment on above: BPP 4/8 in office to day Residual codes; unclassified (2 sources) 37 weeks gestation of ; Translations: [ state, incidental] Onset: 03-24-2025 05-06-2023 Episodic Residual codes; unclassified (1 source) Personal history of other medical treatment; Translations: [Other specified personal history presenting hazards to health] 05-06-2023 Episodic Residual codes; unclassified (1 source) Gestation period, 10 weeks; Translations: [10 weeks gestation of ] 09-20-2024 Episodic Residual codes; unclassified (1 source) Gestation period, 24 weeks; Translations: [24 weeks gestation of ] 12-27-2024 Episodic Residual codes; unclassified (1 source) Gestation period, 31 weeks; Translations: [31 weeks gestation of ] 02-14-2025 Episodic Residual codes; unclassified (1 source) Gestation period, 38 weeks; Translations: [38 weeks gestation of ] 04-02-2025 Episodic Residual codes; unclassified (1 source) Gestation period, 39 weeks; Translations: [39 weeks gestation of ] 04-07-2025 Episodic Residual codes; unclassified (1 source) 38 weeks gestation of ; Translations: [38 weeks gestation of (HCC)] Onset: 04-02-2025 Episodic Residual codes; unclassified (1 source) 36 weeks gestation of ; Translations: [36 weeks gestation of (HCC)] Onset: 03-20-2025 Episodic Residual codes; unclassified (1 source) 34 weeks gestation of ; Translations: [34 weeks gestation of (HCC)] Onset: 03-05-2025 Episodic Residual codes; unclassified (1 source) 31 weeks gestation of ; Translations: [31 weeks gestation of (HCC)] Onset: 02-14-2025 Episodic Residual codes; unclassified (1 source) 24 weeks gestation of ; Translations: [24 weeks gestation of (HCC)] Onset: 01-29-2025 Episodic Residual codes; unclassified (1 source) 29 weeks gestation of ; Translations: [29 weeks gestation of (HCC)] Onset: 01-29-2025 Episodic Skin and subcutaneous tissue infections (6 sources) Abscess of upper limb; Translations: [Abscess of left arm] Onset: 04-28-2019 04-28-2019 Episodic Sprains and strains (4 sources) Sprain of foot; Translations: [Unspecified sprain of unspecified foot, initial encounter] 09-09-2020 Episodic Substance-related disorders (20 sources) History of intravenous drug abuse; Translations: [History of intravenous drug use in remission] Onset: 10-01-2020 Chronic Substance-related disorders (4 sources) Opioid withdrawal; Translations: [Opioid use, unspecified with withdrawal] 09-08-2020 Episodic Unclassified (1 source) Unknown / UNK(Unknown) Onset: 01-31-2018 Unclassified (20 sources) [facility] - COMMON Onset: 09-20-2024 09-20-2024 Unclassified (20 sources) Education - [place] Onset: 09-20-2024 09-20-2024 Unclassified (2 sources) NO SHOW 12-05-2024 Unclassified (1 source) Long-term current use of drug therapy 12-24-2024 Unclassified (1 source) Other specified diseases and conditions complicating ; Translations: [Other specified diseases and conditions complicating ] Onset: 03-28-2025 Past or Other Problems Problem Classification Problem Date Documented Date Episodic/Chronic Diabetes or abnormal glucose tolerance complicating ; childbirth; or the puerperium (20 sources) History of gestational diabetes mellitus; Translations: [Personal history of gestational diabetes] Onset: 11-26-2020 Resolved: 09-20-2024 06-28-2021 Episodic Other acquired deformities (20 sources) Other specified acquired deformities of right thigh; Translations: [Other acquired deformities of hip] Onset: 06-18-2024 05-06-2024 Episodic Other aftercare (1 source) 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 terminal 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 operator (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; Translations: [Encounter for long-term (current) use of medications] Onset: 08-27-2024 Episodic Other complications of (20 sources) Previous operation to cervix affecting ; Translations: [Maternal care for other abnormalities of cervix, unspecified trimester] Onset: 10-01-2020 10-01-2020 Episodic Other complications of (20 sources) High risk ; Translations: [Supervision of high risk , unspecified, unspecified trimester] Onset: 10-01-2020 Episodic Other complications of (20 sources) Vomiting of , unspecified; Translations: [Unspecified vomiting of , unspecified as to episode of care or not applicable] Onset: 09-20-2024 09-20-2024 Episodic Other complications of (20 sources) Diseases of the digestive system complicating , first trimester; Translations: [Other current conditions classifiable elsewhere of mother, antepartum condition or complication] Onset: 09-20-2024 09-20-2024 Episodic Other complications of (20 sources) Headache; Translations: [Other specified related conditions, first trimester] Onset: 09-20-2024 09-20-2024 Episodic Other complications of (20 sources) Heartburn; Translations: [Other specified related conditions, first trimester] Onset: 09-20-2024 Resolved: 03-20-2025 09-20-2024 Episodic Other complications of (20 sources) Other mental disorders complicating , unspecified trimester; Translations: [Mental disorders of mother, antepartum condition or complication] Onset: 09-20-2024 09-20-2024 Episodic Other complications of (1 source) Supervision of with other poor reproductive or obstetric history, unspecified trimester; Translations: [History of gestational diabetes in prior , currently ] Onset: 09-20-2024 Episodic Other connective tissue disease (20 sources) History of clinical finding in subject; Translations: [Personal history of other diseases of the musculoskeletal system and connective tissue] Onset: 09-20-2024 09-20-2024 Episodic Other infections; including parasitic (20 sources) History of hepatitis C; Translations: [Personal history of other infectious and parasitic diseases] Onset: 11-26-2020 11-26-2020 Episodic Other infections; including parasitic (1 source) Personal history of other infectious and parasitic diseases; Translations: [History of hepatitis C] Onset: 10-07-2024 Episodic Other non-traumatic joint disorders (20 sources) Hip pain; Translations: [Pain in right hip] Onset: 05-03-2024 Resolved: 10-04-2024 03-19-2024 Episodic Other non-traumatic joint disorders (1 source) Pain in right hip; Translations: [Chronic pain of both hips] Onset: 05-03-2024 Episodic Other non-traumatic joint disorders (1 source) Pain in left hip; Translations: [Chronic pain of both hips] Onset: 05-03-2024 Episodic Residual codes; unclassified (20 sources) History of intravenous drug abuse; Translations: [Personal history of other specified conditions] Onset: 10-01-2020 10-01-2020 Episodic Residual codes; unclassified (1 source) Tobacco use; Translations: [Vapes nicotine containing substance] Onset: 09-20-2024 Episodic Residual codes; unclassified (1 source) 20 weeks gestation of ; Translations: [20 weeks gestation of ] Onset: 11-29-2024 Episodic Residual codes; unclassified (1 source) 12 weeks gestation of ; Translations: [12 weeks gestation of ] Onset: 10-05-2024 Episodic Residual codes; unclassified (1 source) Personal history of other specified conditions; Translations: [History of intravenous drug use in remission] Onset: 09-20-2024 Episodic Screening and history of mental health and substance abuse codes (20 sources) H/O: depression; Translations: [Personal history of other mental and behavioral disorders] Onset: 10-01-2020 10-01-2020 Episodic Unclassified (3 sources) Spontaneous rupture of membranes; Translations: [Spontaneous rupture of amniotic membranes] 05-20-2021 Unclassified (3 sources) Large for gestation age fetus; Translations: [Large for gestational age fetus] 05-20-2021 Results Test Name Value Interpretation Reference Range Facility URINE OB DIP B/Oon Glucose Ql (U) Negative Neg mg/dL [facility] Protein.monoclonal (U) [Mass/Vol] Negative Neg mg/dL [facility] BACTERIAL VAGINOSIS NAATon 0 03-24-2025 Lactobacillus crispatus+gasseri+amparo senii + Gardnerella vaginalis + Atopobium vaginae rRNA CHANI+probe Ql (Vag fld) Not detected Normal Not detected [facility] Comment on above: Order Comment: Speci men Type: SWABOrdering Facility: [facility] Address: [address] [place] [address] Performed By: #### C VTV, BVAMP ####[facility] LABCLIA [id number] [place] [address] [place] BERENICE/TRICHOMONAS NAATon 0 03-24-2025 C. glabrata RNA CHANI+probe Ql (Vag fld) Not detected Normal Not detected [facility] Comment on above: Order Comment: Speci men Type: SWABOrdering Facility: [facility] Address: [address] [place] [address] Performed By: #### C VTV, BVAMP ####[facility] LABCLIA [id number] [place] [address] [place] Berenice sp DNA CHANI+probe Ql (Vag fld) Not detected Normal Not detected [facility] Comment on above: Order Comment: Speci men Type: SWABOrdering Facility: [facility] Address: [address] [place] [address] Result Comment: The Berenice species group target includes C. albicans, C. tropicalis, C. parapsilosis, and C. dubliniensis. Performed By: #### C VTV, BVAMP ####[facility] LABCLIA [id number] [place] [address] [place] T. vaginalis DNA CHANI+probe Ql (Unsp spec) Not detected Normal Not detected [facility] Comment on above: Order Comment: Speci men Type: SWABOrdering Facility: [facility] Address: [address] [place] [address] Performed By: #### C VTV, BVAMP ####[facility] LABCLIA [id number] [place] [address] [place] URINE OB DIP B/Oon Glucose Ql (U) Negative Neg mg/dL [facility] Interpretation and review of laboratory results Normal [facility] Protein.monoclonal (U) [Mass/Vol] trace Neg mg/dL [facility] CNOVon 03-20-2025 CNOV Office Visit (GENSME ) -------- DIEGOTIFFANIE ([id number]) 1990 [facility] Date Time Provider Department 03/20/25 8:30 AM ORACIO MILES During your visit today, we recorded the following information about you: Pulse Blood pressure Weight Height 77/minute 115/80 93.9 kg 1.745 m Oracio Miles DO 03/20/2025 9:00 AM Signed We discussed your gallbladder and recent gallstone attack: - You experienced a severe gallbladder attack after eating fried fish, which lasted several hours. This was your first episode, and you have not had any pain or issues since. - Imaging showed a gallstone approximately 2 centimeters in size located in the neck of your gallbladder. This likely caused the symptoms during your attack. - Gallstones are common, but symptoms occur when stones block the gallbladder's ducts. Foods high in fat, grease, or oil can trigger future attacks. - To reduce the risk of another attack, avoid greasy, fatty, fried, or saucy foods until after your delivery. - If you experience another attack before delivery, please call our office immediately, as a severe attack could lead to significant inflammation and potentially trigger early labor. We discussed treatment options for your gallstones: - There is no treatment to dissolve gallstones; the primary option is gallbladder removal (cholecystectomy). - Since you are currently , we will monitor your symptoms for now. After delivery, we can discuss whether to continue watchful waiting or proceed with gallbladder removal. - If you decide to proceed with surgery, it is typically scheduled about 6 weeks after delivery. Next steps: - Avoid high-fat, greasy, or fried foods to minimize the risk of another attack. - Call our office if you experience another gallbladder attack or have any new or worsening symptoms. - We will follow up after your delivery to reassess your symptoms and discuss treatment options. Please let us know if you have any further questions or concerns. Oracio Miles DO 03/20/2025 12:57 PM Signed General Surgery Consult REASON FOR VISIT Tiffanie Cortez is a 34 year old female who is scheduled for a consult at the request of Rukhsana Mckinnon for Consult (Calculus of gallbladder with cholecystitis without biliary obstruction, unspecified cholecystitis acuity ). My final recommendations will be communicated back to the requesting physician by the way of the shared medical record, fax, or via [place] Mail Recording using iDubba software for draft documentation of the visit was discussed with the patient/authorized factory representative; all questions welcomed and answered. Patient/authorized factory representative agreed to proceed History of Present Illness: Tiffanie Cortez is a 34-year-old female, , presenting for evaluation of a recent gallbladder attack. Tiffanie reports experiencing her first gallbladder attack recently, which she describes as pretty severe. The pain was diffuse across the abdomen, with significant discomfort across the upper abdomen. She suspects the attack was triggered by consuming fried fish around noon, with pain onset approximately 2 hours later. The pain intensified over several hours, becoming severe by 21:00 and lasting until around midnight, at which point she was able to fall asleep. She has not experienced any further episodes or pain since this incident. She is currently and is hoping to avoid induction or surgery at this time. She is due in ~2 weeks. PAST MEDICAL HISTORY Diagnosis Date Abnormal glandular Papanicolaou smear of cervix 2000 Bilateral ovarian cysts depression Gestational diabetes mellitus, class A1 (HCC) 03/15/2021 Gestational diabetes mellitus, class A2 (HCC) 03/15/2021 03/14/23-1hr GCT elevated, did not complete 3hr GTT because she was sick after this last . Will presume GDM and testing for duration of . Growth US every 4 weeks. Kristen Farr APRN.CNM History of drug use meth and heroine. Denies use x 1 year 09/2020 History of hepatitis C 11/26/2020 Migraine without aura and without status migrainosus, not intractable PAST SURGICAL HISTORY Procedure Laterality Date CRYO CAUTERY CERVIX 2000 FAMILY HISTORY Problem Relation Age of Onset Hypertension Mother Hypertension Father No Known Problems Brother No Known Problems Maternal Grandmother Heart Attack Maternal Grandfather No Known Problems Paternal Grandmother Heart Attack Paternal Grandfather No Known Problems Daughter Social History Tobacco Use Smoking status: Former Current packs/day: 0.00 Types: Cigarettes Start date: 09/28/2012 Quit date: 09/28/2020 Years since quittin.4 Smokeless tobacco: Never Tobacco comments: Pt uses nicotine vape Vaping Use Vaping status: current everyday user Substances: Nicotine (2%) Substance Use Topics Alc (more content not included)... Normal [facility] HISTORY PHYSICALon HISTORY PHYSICAL HNO ID: [id number] Author: ORACIO MILES, DO Service: ? Author Type: Physician Type: H&P Filed: 03/20/2025 12:57 Note Text: General Surgery Consult REASON FOR VISIT Tiffanie Cortez is a 34 year old female who is scheduled for a consult at the request of Rukhsana Mckinnon for Consult (Calculus of gallbladder with cholecystitis without biliary obstruction, unspecified cholecystitis acuity ). My final recommendations will be communicated back to the requesting physician by the way of the shared medical record, fax, or via [place] Mail Recording using iDubba software for draft documentation of the visit was discussed with the patient/authorized factory representative; all questions welcomed and answered. Patient/authorized factory representative agreed to proceed History of Present Illness: Tiffanie Cortez is a 34-year-old female, , presenting for evaluation of a recent gallbladder attack. Tiffanie reports experiencing her first gallbladder attack recently, which she describes as pretty severe. The pain was diffuse across the abdomen, with significant discomfort across the upper abdomen. She suspects the attack was triggered by consuming fried fish around noon, with pain onset approximately 2 hours later. The pain intensified over several hours, becoming severe by 21:00 and lasting until around midnight, at which point she was able to fall asleep. She has not experienced any further episodes or pain since this incident. She is currently and is hoping to avoid induction or surgery at this time. She is due in ~2 weeks. PAST MEDICAL HISTORY Diagnosis Date Abnormal glandular Papanicolaou smear of cervix 2000 Bilateral ovarian cysts depression Gestational diabetes mellitus, class A1 (HCC) 03/15/2021 Gestational diabetes mellitus, class A2 (HCC) 03/15/2021 03/14/23-1hr GCT elevated, did not complete 3hr GTT because she was sick after this last . Will presume GDM and testing for duration of . Growth US every 4 weeks. Kristen Farr APRN.CNM History of drug use meth and heroine. Denies use x 1 year 09/2020 History of hepatitis C 11/26/2020 Migraine without aura and without status migrainosus, not intractable PAST SURGICAL HISTORY Procedure Laterality Date CRYO CAUTERY CERVIX 2000 FAMILY HISTORY Problem Relation Age of Onset Hypertension Mother Hypertension Father No Known Problems Brother No Known Problems Maternal Grandmother Heart Attack Maternal Grandfather No Known Problems Paternal Grandmother Heart Attack Paternal Grandfather No Known Problems Daughter Social History Tobacco Use Smoking status: Former Current packs/day: 0.00 Types: Cigarettes Start date: 09/28/2012 Quit date: 09/28/2020 Years since quittin.4 Smokeless tobacco: Never Tobacco comments: Pt uses nicotine vape Vaping Use Vaping status: current everyday user Substances: Nicotine (2%) Substance Use Topics Alcohol use: Not Currently Drug use: Not Currently Types: Amphetamines, Heroin The patient has the following: Problem List Noted Noted By Resolved Resolved By Anxiety during (HCC) 09/20/2024 Zena Fontenot APRN.CNP No Overview Signed 09/20/2024 10:03 AM by Zena Fontenot APRN.CNP September 20, 2024 Reports increased anxiety. No medication at this time. Has taken Prozac in the past. Follows with Kalyani through psych. Reports anxiety has increased with ADHD. Denies thoughts of self harm. Mental health resources provided. Has upcoming appointment with Kalyani. Zena Fontenot APRN.CNP Attention deficit hyperactivity disorder (ADHD) 09/20/2024 Zena Fontenot APRN.CNP No headache in first trimester (HCC) 09/20/2024 Zena Fontenot APRN.CNP No Overview Signed 09/20/2024 10:06 AM by Zena Fontenot APRN.CNP September 20, 2024 Has added Magnesium. Zena Fontenot APRN.CNP Constipation during in third trimester (HCC) 09/20/2024 Zena Fotnenot APRN.CNP No Overview Signed 09/20/2024 10:10 AM by Zena Fontenot APRN.CNP September 20, 2024 Discussed Colace. eZna Fontenot APRN.CNP History of joint pain 09/20/2024 Zena Fontenot APRN.MONICA No Overview Signed 09/20/2024 10:12 AM by Zena Fontenot APRN.CNP September 20, 2024 Taking Gabapentin and Meloxicam. Discussed recommendation of discontinuing Meloxicam use. Discussed limited data on Gabapentin during and recommend reaching out to prescribed for alternative options Zena Fontenot APRN.CNP Nausea and vomiting during (HCC) 09/20/2024 Zena Fontenot APRN.CNP No Heartburn during in first trimester (HCC) 09/20/2024 Zena Fontenot APRN.CNP No Overview Signed 09/20/2024 10:14 AM by Zena Fontenot APRN.MONICA September 20, 2024 Discussed Tums vs Pepcid. Zena Fontenot APRN.CNP Hip dysplasia, acquired, right 06/18/2024 Mamie Baxter PA-C No Vapes nicotine containing substance 09/16/2022 Gin Esquivel RN No Overview Addendum 09/20/2024 10:11 AM by Zena Fontenot APRN.MONICA September 20, 2024 Revi (more content not included)... Normal [facility] ROUTINE, GROUP B ST REPTOCOCCUS BY PCRon 03-20-2025 ROUTINE, GROUP B STREPTOCOCCUS BY PCR Not detected Normal [facility] Comment on above: Performed By: #### G BPCR ####[facility] LABCLIA [id number] [place] [address] [place] URINE OB DIP B/Oon 5 Glucose Ql (U) Negative Neg mg/dL [facility] Interpretation and review of laboratory results Normal [facility] Protein.monoclonal (U) [Mass/Vol] Negative Neg mg/dL [facility] Abdomen Limitedon 03-18-2025 Abdomen Limited [facility] Services [address] [place] [address] Abdomen Limited MR#: [id number] Acct: [id number] Name: TIFFANIE CORTEZ Rep #: [id number] : 1990 F 34 From: Poli Fernandes MD PCP: Status: REG CLI Study: Abdomen Limited Date of Exam: 03/18/25 Exam# [id number] Ordering Dr: Kristen Farr CNM PROCEDURE: ABDOMEN LIMITED 03/18/2025 REASON FOR EXAM: RUQ PAIN TECHNIQUE: ABDOMEN LIMITED COMPARISON: None FINDINGS: Liver: Unremarkable, measures 14.3 cm Gallbladder: There is a 1.7 cm stone in the dependent portion of the gallbladder. There is no gallbladder wall thickening or pericholecystic fluid. Espinoza's sign = negative. Common bile duct: 2 mm . Pancreas: the visualized portion of the pancreas is barbara. L Kidneys: The right kidney measures 13.3 cm. US/Abdomen Limited IMPRESSION: There is cholelithiasis, without ultrasonographic evidence of acute cholecystitis. [facility] CC: LIA Farr Freight Checker: Signed Normal [facility] Amylaseon 03-18-2025 LYNDA 68 U/L Normal 28-100 [facility] Comment on above: Performed By: #### L 501.2450, L501.0900, L500.4050, L501.1400, L501.2400 #### [facility] Laboratory [address] [place], [address] [facility] TIFFANIE CORTEZ ([id number]) 1990 F CHT Date Time Provider Department 03/18/25 RUKHSANA MCKINNON During your visit today, we recorded the following information about you: Earl Cummings RN 03/18/2025 4:43 PM Signed Please file consult order. GRANT Calles Karmon, MD 03/18/2025 4:45 PM Signed Please schedule with in [place] this . Rukhsana Mckinnon MD Allergies As of Date: 03/18/2025 (No Known Allergies) Date Reviewed: 03/05/2025 Reviewed by: Jonelle Higuera LPN - Fully Assessed Reason for Visit: Orders [681] Primary Visit Diagnosis:Calculus of gallbladder with cholecystitis without biliary obstruction, unspecified cholecystitis acuity [K80.10] Order(s):CONSULT TO GENERAL SURGERY [9076] Order #: [id number]: 1 FUTURE Prescriptions as of 03/19/2025 - FERROUS SULFATE DRIED ORAL Take by mouth once daily. Mg unknown - FLUoxetine (PROZAC) 20 mg capsule Take 1 capsule by mouth once daily. - gabapentin (NEURONTIN) 300 mg capsule Take 1 capsule by mouth three times a day for 60 days. - famotidine (PEPCID) 20 mg tablet Take 1 tablet by mouth two times a day as needed. - acetaminophen (TYLENOL EXTRA STRENGTH) 500 mg tablet Take 1 tablet by mouth every 6 hours as needed for pain. - PNV Comb #[id number] 3-FA (COMPLETE CHRITS DHA) 29 mg iron- 1 mg-200 mg cmpk Take 1 Dose by mouth once daily. - Magnesium Oxide 420 mg tab Take 1 tablet by mouth once daily. - aspirin, enteric coated (ECOTRIN LOW STRENGTH) 81 mg EC tablet Take 1 tablet by mouth once daily. Problem List As Of Date 03/18/2025 Noted Resolved History of depression [Z86.59] 10/01/2020 History of cryosurgery of cervix complicating p*10/01/2020 History of intravenous drug use in remission [Z*10/01/2020 Supervision of high risk , antepartum *10/01/2020 History of hepatitis C [Z86.19] 11/26/2020 Abnormal glucose in , antepartum [O99.*11/26/2020 06/28/2021 Gestational diabetes mellitus, class A2 [O24.41*03/15/2021 09/20/2024 History of gestational diabetes in prior pregna*06/28/2021 Vapes nicotine containing substance [Z72.0] 09/16/2022 Chronic pain of both hips [M25.551, M25.552, G8*05/03/2024 10/04/2024 Hip dysplasia, acquired, 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] 06/18/2024 Anxiety during [O99.340, F41.9] 09/20/2024 Attention deficit hyperactivity disorder (ADHD)*09/20/2024 headache in first trimester [O26.891,*09/20/2024 Constipation during in third trimeste*09/20/2024 History of joint pain [Z87.39] 09/20/2024 Nausea and vomiting during [O21.9] 09/20/2024 Heartburn during in first trimester [*09/20/2024 Encounter Status:Closed by EARL CUMMINGS on 03/19/25 Normal [facility] Lipaseon 03-18-2025 Lipase [Catalytic activity/Vol] 32 U/L Normal 13-75 [facility] Comment on above: Result Comment: Ashley luevano note: LIPASE revised reference range effective 22. New Lipase methodology. Expected to produce lower values than the previous assay method. NEW Reference Range: 13 - 75 U/L Performed By: #### L 501.2450, L501.0900, L500.4050, L501.1400, L501.2400 #### [facility] Laboratory [address] [place], [place], [id number] Uric Acidon 03-18-2025 URIC 3.9 mg/dL Normal 2.6-6.0 [facility] Comment on above: Result Comment: The drugs N-Acetylcysteine and Metamizole may falsely depress this assay. Performed By: #### L 501.2450, L501.0900, L500.4050, L501.1400, L501.2400 #### [facility] Laboratory [address] [place], [address] Absolute lymphocyte countOrd ered By: Kristen Farr on 03-17-2025 Lymphocytes Auto (Unsp spec) [#/Vol] 2.15 10*3/uL 0.83-4.51 [facility] Absolute neutrophil countOrd ered By: Kristen Farr on 03-17-2025 Neutrophils (Bld) [#/Vol] 5.5 10*3/uL 2.0-7.7 [facility] Anion gap in Serum or Plasma Ordered By: Kristen Farr on 03-17-2025 Anion gap [Moles/Vol] 10 mmol/L 5- [facility] Automated lymphocyte count a s percentage of total leukocytesOrdered By: Kristen Farr on 03-17-2025 Lymphocytes/100 WBC Auto (Unsp spec) 25.7 % - [facility] BUN/creatinine ratioOrdered By: Kristen Farr on 03-17-2025 Urea nitrogen/Creatinine [Mass ratio] 10.6 mg/mg 10- [facility] Basophil percentageOrdered B y: Kristen Farr on 03-17-2025 Basophils/100 WBC (Bld) 0.4 % 0-1 [facility] Bilirubin Test strip Ql (U)O rdered By: Kristen Farr on 03-17-2025 Bilirubin Ql (U) Negative Negative [facility] Bilirubin, totalOrdered By: Kristen Farr on 03-17-2025 Bilirubin [Mass/Vol] 0.31 mg/dL 0.00-1.30 [facility] CBC W/Diff, Automatedon 02-18 Absolute Lymph 2.15 X10 3/uL Normal 0.83-4.51 [facility] Comment on above: Performed By: #### L 100.0100 #### [facility] Laboratory [address] [place], [address] Absolute Neut 5.5 X10 3/uL Normal 2.0-7.7 [facility] Comment on above: Performed By: #### L 100.0100 #### [facility] Laboratory [address] [place], [address] Basophils/100 WBC (Bld) 0.4 % Normal 0-1 [facility] Comment on above: Performed By: #### L 100.0100 #### [facility] Laboratory [address] [place], [address] Eosinophils/100 WBC (Bld) 1.4 % Normal 0-5 [facility] Comment on above: Performed By: #### L 100.0100 #### [facility] Laboratory [address] [place], [address] Erythrocyte distribution width (RBC) [Ratio] 14.3 % Normal 11.6-14.6 [facility] Comment on above: Performed By: #### L 100.0100 #### [facility] Laboratory [address] [place], [address] Hematocrit (Bld) [Volume fraction] 34.5 % Low 37-47 [facility] Comment on above: Performed By: #### L 100.0100 #### [facility] Laboratory [address] [place], [address] Hemoglobin (Bld) [Mass/Vol] 11.6 g/dL Low 12.0-15.0 [facility] Comment on above: Performed By: #### L 100.0100 #### [facility] Laboratory [address] [place], [address] IG% 0.400 Normal 0.0-0.9 [facility] Comment on above: Result Comment: IG% - Immature Granulocytes (promyelocytes, myelocytes and metamyelocytes) > 1% indicates that a LEFT SHIFT is Present. Performed By: #### L 100.0100 #### [facility] Laboratory [address] [place], [address] Lymphocytes/100 WBC (Bld) 25.7 % Normal 19-41 [facility] Comment on above: Performed By: #### L 100.0100 #### [facility] Laboratory [address] [place], [address] MCH (RBC) [Entitic mass] 33.0 pg High 27.0-32.0 [facility] Comment on above: Performed By: #### L 100.0100 #### [facility] Laboratory [address] [place], [address] MCHC (RBC) [Mass/Vol] 33.6 g/dL Normal 32-36 [facility] Comment on above: Performed By: #### L 100.0100 #### [facility] Laboratory [address] [place], [address] MCV (RBC) [Entitic vol] 98.0 fL Normal 81-99 [facility] Comment on above: Performed By: #### L 100.0100 #### [facility] Laboratory [address] [place], [address] Monocytes/100 WBC (Bld) 6.3 % Normal 0-10 [facility] Comment on above: Performed By: #### L 100.0100 #### [facility] Laboratory [address] [place], [address] Neutrophils/100 WBC (Bld) 65.8 % Normal 47-70 [facility] Comment on above: Performed By: #### L 100.0100 #### [facility] Laboratory [address] [place], [address] Nucleated RBC (Bld) [#/Vol] 0 10*3/uL Normal 0-5 [facility] Comment on above: Performed By: #### L 100.0100 #### [facility] Laboratory [address] [place], [address] Platelet mean volume (Bld) [Entitic vol] 10.6 fL Normal 6.2-12.0 [facility] Comment on above: Performed By: #### L 100.0100 #### [facility] Laboratory [address] [place], [address] Platelets (Bld) [#/Vol] 197 10*3/uL Normal 150-450 [facility] Comment on above: Performed By: #### L 100.0100 #### [facility] Laboratory [address] [place], [address] RBC (Bld) [#/Vol] 3.52 10*6/uL Low 4.2-5.4 [facility] Comment on above: Performed By: #### L 100.0100 #### [facility] Laboratory [address] [place], [address] RDW SD 51.2 fl High 35.1-43.9 [facility] Comment on above: Performed By: #### L 100.0100 #### [facility] Laboratory [address] [place], [address] WBC (Bld) [#/Vol] 8.4 10*3/uL Normal 4.4-11.0 [facility] Comment on above: Performed By: #### L 100.0100 #### [facility] Laboratory [address] [place], [address] Carbon dioxide, total [Moles /volume] in Central venous bloodOrdered By: Kristen Farr on 03-17-2025 CO2 [Moles/Vol] 22.8 mmol/L 21.0-32.0 [facility] Chloride assayOrdered By: Boni Farr on 03-17-2025 Chloride [Moles/Vol] 103 mmol/L 98-108 [facility] Comprehensive Metabolic Prof ilon 03-17-2025 Albumin [Mass/Vol] 3.5 g/dL Normal 3.5-5.0 [facility] Comment on above: Performed By: #### L 501.2450, L501.0900, L500.4050, L501.1400, L501.2400 #### [facility] Laboratory [address] [place], [address] Albumin/Globulin [Mass ratio] 1.4 {ratio} Normal 0.9-2.4 [facility] Comment on above: Performed By: #### L 501.2450, L501.0900, L500.4050, L501.1400, L501.2400 #### [facility] Laboratory [address] [place], [address] ALK PHOS 91 U/L Normal 35-104 [facility] Comment on above: Performed By: #### L 501.2450, L501.0900, L500.4050, L501.1400, L501.2400 #### [facility] Laboratory [address] [place], [address] ALT [Catalytic activity/Vol] 16 U/L Normal <=34 [facility] Comment on above: Performed By: #### L 501.2450, L501.0900, L500.4050, L501.1400, L501.2400 #### [facility] Laboratory [address] [place], [address] AST [Catalytic activity/Vol] 19 U/L Normal <=31 [facility] Comment on above: Performed By: #### L 501.2450, L501.0900, L500.4050, L501.1400, L501.2400 #### [facility] Laboratory [address] [place], [address] Bilirubin [Mass/Vol] 0.31 mg/dL Normal 0.00-1.30 [facility] Comment on above: Performed By: #### L 501.2450, L501.0900, L500.4050, L501.1400, L501.2400 #### [facility] Laboratory [address] [place], [address] BUN/CRE 10.6 RATIO Normal 10-20 [facility] Comment on above: Performed By: #### L 501.2450, L501.0900, L500.4050, L501.1400, L501.2400 #### [facility] Laboratory [address] [place], [address] Calcium [Mass/Vol] 8.4 mg/dL Normal 7.6-11.0 [facility] Comment on above: Performed By: #### L 501.2450, L501.0900, L500.4050, L501.1400, L501.2400 #### [facility] Laboratory [address] [place], [address] Chloride [Moles/Vol] 103 mmol/L Normal 98-108 [facility] Comment on above: Performed By: #### L 501.2450, L501.0900, L500.4050, L501.1400, L501.2400 #### [facility] Laboratory [address] [place], [address] CO2 [Moles/Vol] 22.8 mmol/L Normal 21.0-32.0 [facility] Comment on above: Performed By: #### L 501.2450, L501.0900, L500.4050, L501.1400, L501.2400 #### [facility] Laboratory [address] [place], [address] Creatinine [Mass/Vol] 0.54 mg/dL Low 0.70-1.20 [facility] Comment on above: Performed By: #### L 501.2450, L501.0900, L500.4050, L501.1400, L501.2400 #### [facility] Laboratory [address] [place], [address] ECRCL 177.88 ml/min Normal 50-250 [facility] Comment on above: Performed By: #### L 501.2450, L501.0900, L500.4050, L501.1400, L501.2400 #### [facility] Laboratory [address] [place], [address] GAP 10 Normal 5-15 [facility] Comment on above: Performed By: #### L 501.2450, L501.0900, L500.4050, L501.1400, L501.2400 #### [facility] Laboratory [address] [place], [address] GFR/1.73 sq M.predicted among non-blacks MDRD (S/P/Bld) [Vol rate/Area] 125 mL/min/{1.73_m2} Normal >60 [facility] Comment on above: Result Comment: mL/m in/1.73m2 CKD-EPI Creatinine Equation (2020) Performed By: #### L 501.2450, L501.0900, L500.4050, L501.1400, L501.2400 #### [facility] Laboratory [address] [place], [address] Globulin (S) [Mass/Vol] 2.6 g/dL Normal 2.2-4.2 [facility] Comment on above: Performed By: #### L 501.2450, L501.0900, L500.4050, L501.1400, L501.2400 #### [facility] Laboratory [address] [place], [address] Glucose [Mass/Vol] 83 mg/dL Normal 70-99 [facility] Comment on above: Performed By: #### L 501.2450, L501.0900, L500.4050, L501.1400, L501.2400 #### [facility] Laboratory [address] [place], [address] Potassium [Moles/Vol] 3.6 mmol/L Normal 3.3-5.1 [facility] Comment on above: Performed By: #### L 501.2450, L501.0900, L500.4050, L501.1400, L501.2400 #### [facility] Laboratory [address] [place], [address] Sodium [Moles/Vol] 135 mmol/L Normal 133-145 [facility] Comment on above: Performed By: #### L 501.2450, L501.0900, L500.4050, L501.1400, L501.2400 #### [facility] Laboratory [address] [place], [address] T PROT 6.1 g/dL Normal 5.9-8.4 [facility] Comment on above: Performed By: #### L 501.2450, L501.0900, L500.4050, L501.1400, L501.2400 #### [facility] Laboratory [address] [place], [address] Urea nitrogen [Mass/Vol] 6 mg/dL Normal 4-19 [facility] Comment on above: Performed By: #### L 501.2450, L501.0900, L500.4050, L501.1400, L501.2400 #### [facility] Laboratory [address] [place], [address] Eosinophil percentageOrdered By: Kristen Farr on 03-17-2025 Eosinophils/100 WBC (Bld) 1.4 % 0-5 [facility] Erythrocyte distribution wid th ratioOrdered By: Kristen Farr on 03-17-2025 Erythrocyte distribution width (RBC) [Ratio] 14.3 % 11.6-14.6 [facility] Erythrocyte distribution wid th standard deviationOrdered By: Kristen Farr on 03-17-2025 Erythrocyte distribution width (RBC) [Ratio] 51.2 fl High 35.1-43.9 [facility] Glomerular filtration rate ( GFR) estimation/1.73 sq m using serum, plasma, or whole bOrdered By: Kristen Farr on 03-17-2025 GFR/1.73 sq M.predicted among non-blacks MDRD (S/P/Bld) [Vol rate/Area] 125 mL/min/{1.73_m2} >60 [facility] Comment on above: mL/min/1.73m2 CKD-EP I Creatinine Equation (2020) Hematocrit Auto (Bld) [Volum e fraction]Ordered By: Kristen Farr on 03-17-2025 Hematocrit (Bld) [Volume fraction] 34.5 % Low 37-47 [facility] Hemoglobin measurementOrdere d By: Kristen Farr on 03-17-2025 Hemoglobin (Bld) [Mass/Vol] 11.6 g/dL Low 12.0-15.0 [facility] Immature granulocytes/100 WB C Auto (Bld)Ordered By: Kristen Farr on 03-17-2025 Immature granulocytes/100 WBC (Bld) 0.400 % 0.0-0.9 [facility] Comment on above: IG% - Immature Granu locytes (promyelocytes, myelocytes and metamyelocytes) > 1% indicates that a LEFT SHIFT is Present. Ketones Test strip Ql (U)Ord ered By: Krsiten Farr on 03-17-2025 Ketones Ql (U) Negative Negative [facility] Laboratory - Chemistry and C hemistry - challengeOrdered By: Kristen Farr on 03-17-2025 AST [Catalytic activity/Vol] 19 U/L <32 [facility] Lipase measurementOrdered By : Kristen Farr on 03-17-2025 Lipase [Catalytic activity/Vol] 32 U/L 13-75 [facility] Comment on above: Please note:LIPASE r evised reference range effective 22. New Lipase methodology. Expected to produce lower values than the previous assay method. NEW Reference Range: 13 - 75 U/L MCV (mean corpuscular volume ) determinationOrdered By: Kristen Farr on 03-17-2025 MCV (RBC) [Entitic vol] 98.0 fL 81-99 [facility] Mean corpuscular hemoglobin (MCH) determinationOrdered By: Kristen Farr on 03-17-2025 MCH (RBC) [Entitic mass] 33.0 pg High 27.0-32.0 [facility] Mean corpuscular hemoglobin concentration (MCHC) determinationOrdered By: Kristen Farr on 03-17-2025 MCHC (RBC) [Mass/Vol] 33.6 g/dL 32-36 [facility] Mean platelet volume determi nationOrdered By: Kristen Farr on 03-17-2025 Platelet mean volume (Bld) [Entitic vol] 10.6 fL 6.2-12.0 [facility] Microscopic analysis of urin e for red blood cells (RBC)Ordered By: Kristen Farr on 03-17-2025 Microscopic analysis of urine for red blood cells (RBC) 0-5 SEEN /hpf 0-5 [facility] Monocyte percentageOrdered B y: Kristen Farr on 03-17-2025 Monocytes/100 WBC (Bld) 6.3 % 0-10 [facility] Mucus LM Ql (Urine sed)Order ed By: Kristen Farr on 03-17-2025 Mucus Ql (Urine sed) 0 SEEN /hpf [facility] Neutrophil percentageOrdered By: Kristen Farr on 03-17-2025 Neutrophils/100 WBC (Bld) 65.8 % 47-70 [facility] Nitrite Test strip Ql (U)Ord ered By: Kristen Farr on 03-17-2025 Nitrite Ql (U) Negative Negative [facility] Nucleated red blood cell per centageOrdered By: Kristen Farr on 03-17-2025 Nucleated RBC/100 WBC (Bld) [Ratio] 0 % 0-5 [facility] OB Triage Physician Noteon 0 03-17-2025 OB Triage Physician Note [facility] Medical Records Department [address] [place] [address] OB Triage Physician Note 03/17/259 MR#: [id number] Acct: [id number] Name: TIFFANIE CORTEZ Rep #: [id number] : 1990 34 From: Kristen Farr CNM PCP: Status:REG CLI Y Location: [place] [address] HPI - General HPI Narrative TIFFANIE CORTEZ, is a 34 F who presents [facility] Medical History (Updated 03/17/25 @ 22:46 by Kristen Farr CNM) Anxiety Gestational diabetes 34 weeks gestation of Vaginal delivery Headache Hepatitis Depression Home Medications ???Medication ???Instructions ???Recorded ???Last Taken ???Type acetaminophen 500 mg tablet 1,000 mg (2 x 500 mg) PO Q6H PRN 0 05/06/23 03/17/25 Rx PRN Pain 1-10 Or Fever #0 tabs fluoxetine 20 mg capsule 20 mg PO DAILY dep 03/17/25 Unknow n History gabapentin 300 mg capsule 300 mg PO TID joint pain 03/17/25 Unknown History Allergy/AdvReac Type Severity Reaction Status Date / Time No Known Allergies Allergy Verified 03/17/25 21:37 Surgical History History of gynecologic surgery Social History Smoking Status: Former smoker History Elective abortions Hx Para 1 Spontaneous abortions Hx # Term Pregnancies Ectopic pregnancies Hx # Pregnancies Multiple births # of living children Physical Exam Const alert and oriented x3 General Appearance: cooperative Orientation / Consciousness: awake, oriented to person, oriented to place and oriented to time Exam Limitations: no limitations HEENT normocephalic Head and Scalp: normal to inspection, normocephalic and atraumatic Face and Sinus: normal facial exam Eyes General Eye: normal appearance of both eyes Neck full ROM Chest Chest: symmetrical chest wall rise Resp normal respiratory effort and normal air movement Auscultation: clear to auscultation bilaterally Cardio regular rate, regular rhythm, S1 normal heart sound, S2 normal heart sound, no murmurs, no rub, no gallops and no clicks GI normal to inspection, nondistended, normoactive bowel sounds Palpation: soft and tender LUQ (Tenderness upon palpation), RUQ and periumbilical (Bilateral abdominal palpation radiates midline, no rebound) appearance of the vagina normal Bladder / Kidney Exam: no CVA tenderness Manual OB Exam: presentation cephalic, dilated 1, effaced 50, station -3 and other Back/Spine normal ROM Extremity normal to inspection and full ROM Skin no rashes or lesions noted Neuro oriented x3, CN's II-XII intact bilaterally and moves all extremities Sensorium / Orientation: awake, alert and oriented to person Motor Exam: clonus absent Deep Tendon Reflexes: Rt Patellar (L4): 2+ and Lt Patellar (L4): 2+ NST FHR Rate Baby A Baseline: 130 Variability:: Moderate Accelerations:: 15 x 15 Decelerations:: None NST Reactive:: Yes Uterine Activity:: Irregular Assessment Plan (1) Hepatitis C antibody positive in blood: COMMENT: viral load negative 10/10/22 (2) Abdominal pain affecting : (3) 36 weeks gestation of : (4) History of intravenous drug use: PLAN: Plan 1) CBC, CMP, uric acid, urine P/C ratio, amylase, lipase, urinalysis, urine culture. RUQ abdominal ultrasound in am after NPO for 6 hr 2) 1 Liter LR 3) NPO 4) Tylenol 1 gram PO once 5) Zofran 4mg IVP 6) consulted regarding bilateral upper quadrant abdominal pain with no signs of labor. Will continue to observe over night at this time 03/17/252247 Date Kristen Farr CNM Cosigner Signature (if applicable): Date CC: LIA Farr Signed Normal [facility] Platelet countOrdered By: Boni Farr on 03-17-2025 Platelets (Bld) [#/Vol] 197 10*3/uL 150-450 [facility] Potassium measurement (mass/ volume)Ordered By: Kristen Farr on 03-17-2025 Potassium (Unsp spec) [Mass/Vol] 3.6 mmol/L 3.3-5.1 [facility] Protein Test strip Ql (U)Ord ered By: Kristen Farr on 03-17-2025 Protein Ql (U) 15 mg/dl High Negative [facility] Protein+Creatinine Ratio,Uri neon 03-17-2025 PROT:CRE RATIO 194 mg/g CRE Normal 0-200 [facility] Comment on above: Performed By: #### L 501.2450, L501.0900, L500.4050, L501.1400, L501.2400 #### [facility] Laboratory [address] [place], [address] Protein (U) [Mass/Vol] 18.0 mg/dL High 0.0-12.0 [facility] Comment on above: Performed By: #### L 501.2450, L501.0900, L500.4050, L501.1400, L501.2400 #### [facility] Laboratory [address] [place], [address] UR CREAT 92.80 mg/dL Normal 28.00-217.00 [facility] Comment on above: Performed By: #### L 501.2450, L501.0900, L500.4050, L501.1400, L501.2400 #### [facility] Laboratory [address] [place], [address] RBC Auto (Bld) [#/Vol]Ordere d By: Kristen Farr on 03-17-2025 RBC (Bld) [#/Vol] 3.52 10*6/uL Low 4.2-5.4 [facility] Random urine creatinine cash urement (mass/volume)Ordered By: Kristen Farr on 03-17-2025 Creatinine Unsp time (U) [Mass/Vol] 92.80 mg/dL 28.00-217.00 [facility] Serum creatinine measurement (mass/volume)Ordered By: Kristen Farr on 03-17-2025 Creatinine [Mass/Vol] 0.54 mg/dL Low 0.70-1.20 [facility] Serum globulin measurementOr dered By: Kristen Farr on 03-17-2025 Globulin (S) [Mass/Vol] 2.6 g/dL 2.2-4.2 [facility] Serum glucose measurement (m ass/volume)Ordered By: Kristen Farr on 03-17-2025 Glucose [Mass/Vol] 83 mg/dL 70-99 [facility] Serum or plasma alanine rodriguez otransferase (ALT) measurementOrdered By: Kristen Farr on 03-17-2025 ALT [Catalytic activity/Vol] 16 U/L <35 [facility] Serum or plasma albumin cash urement (mass/volume)Ordered By: Kristen Farr on 03-17-2025 Albumin [Mass/Vol] 3.5 g/dL 3.5-5.0 [facility] Serum or plasma albumin/glob ulin mass ratioOrdered By: Kristen Farr on 03-17-2025 Albumin/Globulin [Mass ratio] 1.4 {ratio} 0.9-2.4 [facility] Serum or plasma alkaline perez sphatase measurementOrdered By: Kristen Farr on 03-17-2025 ALP [Catalytic activity/Vol] 91 U/L 35-104 [facility] Serum or plasma amylase cash urement (enzymatic activity/volume)Ordered By: Kristen Farr on 03-17-2025 Amylase [Catalytic activity/Vol] 68 U/L 28-100 [facility] Serum or plasma calcium cash urement (mass/volume)Ordered By: Kristen Farr on 03-17-2025 Calcium [Mass/Vol] 8.4 mg/dL 7.6-11.0 [facility] Serum or plasma urea nitroge n measurement (mass/volume)Ordered By: Kristen Farr on 03-17-2025 Urea nitrogen [Mass/Vol] 6 mg/dL 4-19 [facility] Serum or plasma uric acid me asurement (mass/volume)Ordered By: Kristen Farr on 03-17-2025 Urate [Mass/Vol] 3.9 mg/dL 2.6-6.0 [facility] Comment on above: The drugs N-Acetylcy steine and Metamizole may falsely depress this assay. Sodium levelOrdered By: Ramona Farr on 03-17-2025 Sodium [Moles/Vol] 135 mmol/L 133-145 [facility] Squamous epithelial cells de tection in urine sediment by light microscopyOrdered By: Kristen Farr on 03-17-2025 Epithelial cells.squamous LM Ql (Urine sed) 5-10 SEEN /hpf 5-10 [facility] Total proteinOrdered By: Deonna Farr on 03-17-2025 Protein [Mass/Vol] 6.1 g/dL 5.9-8.4 [facility] Urinalysis, Completeon 03-17 EPI,SQUAMOUS 5-10 SEEN Normal 5-10 [facility] Comment on above: Order Comment: RADHA DAMONOR TO SPECIFY Performed By: #### L 400.0001 #### [facility] Laboratory [address] [place], [place], [id number] RBC 0-5 SEEN Normal 0-5 [facility] Comment on above: Order Comment: RADHA DAMONOR TO SPECIFY Performed By: #### L 400.0001 #### [facility] Laboratory [address] [place], [place], [id number] WBC 0-5 SEEN Normal 0-5 [facility] Comment on above: Order Comment: RADHA CTOR TO SPECIFY Performed By: #### L 400.0001 #### [facility] Laboratory [address] [place], [address] BACTERIA 0 SEEN Normal None Seen [facility] Comment on above: Order Comment: RADHA CTOR TO SPECIFY Performed By: #### L 400.0001 #### [facility] Laboratory [address] [place], [place], [id number] Mucus Ql (Urine sed) 0 SEEN Normal [facility] Comment on above: Order Comment: RADHA CTOR TO SPECIFY Performed By: #### L 400.0001 #### [facility] [address] [place], [place], [id number] Urine clarityOrdered By: Deonna Farr on 03-17-2025 Clarity (U) Clear Clear [facility] Urine color determinationOrd ered By: Kristen Farr on 03-17-2025 Color (U) Yellow Yellow [facility] Urine glucose detectionOrder ed By: Kristen Farr on 03-17-2025 Glucose Ql (U) Normal mg/dl Normal [facility] Urine leukocyte esterase det ection by dipstickOrdered By: Kristen Farr on 03-17-2025 Leukocyte esterase Test strip Ql (U) Negative Negative [facility] Urine pHOrdered By: Kristen Farr on 03-17-2025 pH (U) 8.0 [pH] 5.0 - 8.0 [facility] Urine protein measurement (m ass/volume)Ordered By: Kristen Farr on 03-17-2025 Protein (U) [Mass/Vol] 18.0 mg/dL High 0.0-12.0 [facility] Urine protein/creatinine mas s ratioOrdered By: Kristen Farr on 03-17-2025 Protein/Creatinine (U) [Mass ratio] 194 mg/g CRE 0-200 [facility] Urine sediment bacteria coun t by microscopy (number/high power field)Ordered By: Kristen Farr on 06-30-2025 Bacteria LM.HPF (Urine sed) [#/Area] 0 /[HPF] None Seen [facility] Urine specific gravity measu rementOrdered By: Kristen Farr on 03-17-2025 Specific gravity (U) [Rel density] 1.015 1.002-1.030 [facility] Urine urobilinogen measureme ntOrdered By: Kristen Farr on 03-17-2025 Urobilinogen Ql (U) Normal mg/dl Normal [facility] White blood cell (WBC) count Ordered By: Kristen Farr on 03-17-2025 WBC (Bld) [#/Vol] 8.4 10*3/uL 4.4-11.0 [facility] White blood cell countOrdere d By: Kristen Farr on 03-17-2025 White blood cell count 0-5 SEEN /hpf 0-5 [facility] URINE OB DIP B/Oon Glucose Ql (U) Negative Neg mg/dL [facility] Interpretation and review of laboratory results Normal [facility] Protein.monoclonal (U) [Mass/Vol] Negative Neg mg/dL [facility] CNPNon 02-21-2025 CNPN Telephone (OBGYWM) -------- TIFFANIE CORTEZ ([id number]) 1990 F CHT Date Time Provider Department 02/21/25 [facility] OBGYWM During your visit today, we recorded the following information about you: Zaina Murillo, RN 02/21/2025 11:27 AM Signed 32w4d Pt calls asking if she should be concerned about extra movement. Advised Pt that we are not concerned about an overly active baby AND that we are concerned about a baby whom has decrease movement/ <6-10 kick counts in an hr, or with LOF/vaginal bleeding or abdominal pain. Informed Pt that her baby being active is likely due to her being active or due to what she's ate/drank and of no concern at this time. Pt voiced understanding. Zaina Murillo RN Allergies As of Date: 02/21/2025 (No Known Allergies) Date Reviewed: 02/14/2025 Reviewed by: Jyothi Roper LPN - Fully Assessed Reason for Visit: Movement [4212] Prescriptions as of 02/21/2025 - FLUoxetine (PROZAC) 20 mg capsule Take 1 capsule by mouth once daily. - gabapentin (NEURONTIN) 300 mg capsule Take 1 capsule by mouth three times a day for 60 days. - famotidine (PEPCID) 20 mg tablet Take 1 tablet by mouth two times a day as needed. - acetaminophen (TYLENOL EXTRA STRENGTH) 500 mg tablet Take 1 tablet by mouth every 6 hours as needed for pain. - PNV Comb #3-Kasq-Itfmy 3-FA (COMPLETE CHRIST DHA) 29 mg iron- 1 mg-200 mg cmpk Take 1 Dose by mouth once daily. - Magnesium Oxide 420 mg tab Take 1 tablet by mouth once daily. - aspirin, enteric coated (ECOTRIN LOW STRENGTH) 81 mg EC tablet Take 1 tablet by mouth once daily. Problem List As Of Date 02/21/2025 Noted Resolved History of depression [Z86.59] 10/01/2020 History of cryosurgery of cervix complicating p*10/01/2020 History of intravenous drug use in remission [Z*10/01/2020 Supervision of high risk , antepartum *10/01/2020 History of hepatitis C [Z86.19] 11/26/2020 Abnormal glucose in , antepartum [O99.*11/26/2020 06/28/2021 Gestational diabetes mellitus, class A2 [O24.41*03/15/2021 09/20/2024 History of gestational diabetes in prior pregna*06/28/2021 Vapes nicotine containing substance [Z72.0] 09/16/2022 Chronic pain of both hips [M25.551, M25.552, G8*05/03/2024 10/04/2024 Hip dysplasia, acquired, 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] 06/18/2024 Anxiety during [O99.340, F41.9] 09/20/2024 Attention deficit hyperactivity disorder (ADHD)*09/20/2024 headache in first trimester [O26.891,*09/20/2024 Constipation during in third trimeste*09/20/2024 History of joint pain [Z87.39] 09/20/2024 Nausea and vomiting during [O21.9] 09/20/2024 Heartburn during in first trimester [*09/20/2024 Encounter Status:Closed by ZAINA MURILLO on 02/21/25 [facility] CNPNon 02-17-2025 [facility] Telephone ([id number]) -------- [facility][id number]) 1990 [facility] Provider Department 02/17/25 ELEANOR ROCHA [id number] During your visit today, we recorded the following information about you: Eleanor Rocha RN 02/17/2025 11:53 AM Signed 3rd risk assessment form submitted 02/17/2025. Eleanor Rocha RN Allergies As of Date: 02/17/2025 (No Known Allergies) Date Reviewed: 02/14/2025 Reviewed by: Jyothi Roper LPN - Fully Assessed Reason for Visit: Supervisor Asbestos Removal - Other [8318] Cmt: SON Prescriptions as of 02/17/2025 - famotidine (PEPCID) 20 mg tablet Take 1 tablet by mouth two times a day as needed. - acetaminophen (TYLENOL EXTRA STRENGTH) 500 mg tablet Take 1 tablet by mouth every 6 hours as needed for pain. - FLUoxetine (PROZAC) 20 mg capsule Take 1 capsule by mouth once daily. - gabapentin (NEURONTIN) 300 mg capsule Take 1 capsule by mouth three times a day for 60 days. - PNV Comb #1-Rnvx-Vgkxu 3-FA (COMPLETE DHA) 29 mg iron- 1 mg-200 mg cmpk Take 1 Dose by mouth once daily. - Magnesium Oxide 420 mg tab Take 1 tablet by mouth once daily. - aspirin, enteric coated (ECOTRIN LOW STRENGTH) 81 mg EC tablet Take 1 tablet by mouth once daily. Problem List As Of Date 02/17/2025 Noted Resolved History of depression [Z86.59] 10/01/2020 History of cryosurgery of cervix complicating p*10/01/2020 History of intravenous drug use in remission [Z*10/01/2020 Supervision of high risk , antepartum *10/01/2020 History of hepatitis C [Z86.19] 11/26/2020 Abnormal glucose in , antepartum [O99.*11/26/2020 06/28/2021 Gestational diabetes mellitus, class A2 [O24.41*03/15/2021 09/20/2024 History of gestational diabetes in prior pregna*06/28/2021 Vapes nicotine containing substance [Z72.0] 09/16/2022 Chronic pain of both hips [M25.551, M25.552, G8*05/03/2024 10/04/2024 Hip dysplasia, acquired, 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] 06/18/2024 Anxiety during [O99.340, F41.9] 09/20/2024 Attention deficit hyperactivity disorder (ADHD)*09/20/2024 headache in first trimester [O26.891,*09/20/2024 Constipation during in third trimeste*09/20/2024 History of joint pain [Z87.39] 09/20/2024 Nausea and vomiting during [O21.9] 09/20/2024 Heartburn during in first trimester [*09/20/2024 Encounter Status:Closed by ELEANOR ROCHA on 02/17/25 Normal [facility] CBC W Auto Differential pane l (Bld)on 01-29-2025 Basophils (Bld) [#/Vol] 10*3/uL Normal <0.11 [facility] Comment on above: Order Comment: Speci men Type: BLOOD SPECIMENOrdering Facility: [facility] Address: [address] [place] [address] [place] [address] Performed By: #### 5 7021-8 ####[facility] MILLHARPREETWNCLIA [id number] [place] [address] [place] Basophils/100 WBC (Bld) 0.2 % Normal [facility] Comment on above: Order Comment: Speci men Type: BLOOD SPECIMENOrdering Facility: [facility] Address: [address] [place] [address] Performed By: #### 5 7021-8 ####[facility] BRYANNAWNCLIA [id number] [place] [address] [place] Differential cell count method Nom (Bld) Auto Normal [facility] Comment on above: Order Comment: Speci men Type: BLOOD SPECIMENOrdering Facility: [facility] Address: [address] [place] [address] Performed By: #### 5 7021-8 ####[facility] BRYANNAAbbyBOBBILIA [id number] [place] [address] [place] Eosinophils (Bld) [#/Vol] 0.08 10*3/uL Normal <0.46 [facility] Comment on above: Order Comment: Speci men Type: BLOOD SPECIMENOrdering Facility: [facility] Address: [address] [place] [address] Performed By: #### 5 7021-8 ####[facility] BRYANNAAbbyBOBBILIA [id number] [place] [address] [place] Eosinophils/100 WBC (Bld) 0.9 % Normal [facility] Comment on above: Order Comment: Speci men Type: BLOOD SPECIMENOrdering Facility: [facility] Address: [address] [place] [address] Performed By: #### 5 7021-8 ####[facility] BRYANNAPARKERNCLIA [id number] [place] [address] [place] Erythrocyte distribution width (RBC) [Ratio] 12.6 % Normal 11.5-15.0 [facility] Comment on above: Order Comment: Speci men Type: BLOOD SPECIMENOrdering Facility: [facility] Address: [address] [place] [address] Performed By: #### 5 7021-8 ####[facility] BRYANNAPARKERNCJOHN [id number] [place] [address] [place] Hematocrit (Bld) [Volume fraction] 32.7 % Low 36.0-46.0 [facility] Comment on above: Order Comment: Speci men Type: BLOOD SPECIMENOrdering Facility: [facility] Address: [address] [place] [address] Performed By: #### 5 7021-8 ####[facility] [id number] [place] [address] [place] Hemoglobin (Bld) [Mass/Vol] 11.0 g/dL Low 11.5-15.5 [facility] Comment on above: Order Comment: Speci men Type: BLOOD SPECIMENOrdering Facility: [facility] Address: [address] [place] [address] Performed By: #### 5 7021-8 ####[facility] [id number] [place] [address] [place] Immature granulocytes (Bld) [#/Vol] 0.03 10*3/uL Normal <0.10 [facility] Comment on above: Order Comment: Speci men Type: BLOOD SPECIMENOrdering Facility: [facility] Address: [address] [place] [address] Performed By: #### 5 7021-8 ####[facility]SONVILLENCLIA [id number] [place] [address] [place] Immature granulocytes/100 WBC (Bld) 0.3 % Normal [facility] Comment on above: Order Comment: Speci men Type: BLOOD SPECIMENOrdering Facility: [facility] Address: [address] [place] [address] Performed By: #### 5 7021-8 ####[facility] MILLTOWNCLIA [id number] [place] [address] [place] Lymphocytes (Bld) [#/Vol] 1.50 10*3/uL Normal 1.00-4.00 [facility] Comment on above: Order Comment: Speci men Type: BLOOD SPECIMENOrdering Facility: [facility] Address: [address] [place] [address] Performed By: #### 5 7021-8 ####[facility] VENICEWNCLIA [id number] [place] [address] [place] Lymphocytes/100 WBC (Bld) 17.4 % Normal [facility] Comment on above: Order Comment: Speci men Type: BLOOD SPECIMENOrdering Facility: [facility] Address: [address] [place] [address] Performed By: #### 5 7021-8 ####[facility]SONVILLENCLIA [id number] [place] [address] [place] MCH (RBC) [Entitic mass] 32.4 pg Normal 26.0-34.0 [facility] Comment on above: Order Comment: Speci men Type: BLOOD SPECIMENOrdering Facility: [facility] Address: [address] [place] [address] Performed By: #### 5 7021-8 ####[facility] MILLPARKERNCLIA [id number] [place] [address] [place] MCHC (RBC) [Mass/Vol] 33.6 g/dL Normal 30.5-36.0 [facility] Comment on above: Order Comment: Speci men Type: BLOOD SPECIMENOrdering Facility: [facility] Address: [address] [place] [address] Performed By: #### 5 7021-8 ####[facility]SONVILLENCLIA [id number] [place] [address] [place] MCV (RBC) [Entitic vol] 96.2 fL Normal 80.0-100.0 [facility] Comment on above: Order Comment: Speci men Type: BLOOD SPECIMENOrdering Facility: [facility] Address: [address] [place] [address] Performed By: #### 5 7021-8 ####[facility] [id number] [place] [address] [place] Monocytes (Bld) [#/Vol] 0.40 10*3/uL Normal <0.87 [facility] Comment on above: Order Comment: Speci men Type: BLOOD SPECIMENOrdering Facility: [facility] Address: [address] [place] [address] Performed By: #### 5 7021-8 ####[facility] [id number] [place] [address] [place] Monocytes/100 WBC (Bld) 4.6 % Normal [facility] Comment on above: Order Comment: Speci men Type: BLOOD SPECIMENOrdering Facility: [facility] Address: [address] [place] [address] Performed By: #### 5 7021-8 ####[facility] [id number] [place] [address] [place] Neutrophils (Bld) [#/Vol] 6.60 10*3/uL Normal 1.45-7.50 [facility] Comment on above: Order Comment: Speci men Type: BLOOD SPECIMENOrdering Facility: [facility] Address: [address] [place] [address] Performed By: #### 5 7021-8 ####[facility]SONVILLENCLIA [id number] [place] [address] [place] Neutrophils/100 WBC (Bld) 76.6 % Normal [facility] Comment on above: Order Comment: Speci men Type: BLOOD SPECIMENOrdering Facility: [facility] Address: [address] [place] [address] Performed By: #### 5 7021-8 ####[facility]VILLENCJOHN [id number] [place] [address] [place] Nucleated RBC (Bld) [#/Vol] 10*3/uL Normal <0.01 [facility] Comment on above: Order Comment: Speci men Type: BLOOD SPECIMENOrdering Facility: [facility] Address: [address] [place] [address] Performed By: #### 5 7021-8 ####[facility] [id number] [place] [address] [place] Nucleated RBC/100 WBC (Bld) [Ratio] 0.0 /100 WBC Normal [facility] Comment on above: Order Comment: Speci men Type: BLOOD SPECIMENOrdering Facility: [facility] Address: [address] [place] [address] Performed By: #### 5 7021-8 ####[facility] [id number] [place] [address] [place] Platelet mean volume (Bld) [Entitic vol] 10.0 fL Normal 9.0-12.7 [facility] Comment on above: Order Comment: Speci men Type: BLOOD SPECIMENOrdering Facility: [facility] Address: [address] [place] [address] Performed By: #### 5 7021-8 ####[facility] [id number] [place] [address] [place] Platelets (Bld) [#/Vol] 240 10*3/uL Normal 150-400 [facility] Comment on above: Order Comment: Speci men Type: BLOOD SPECIMENOrdering Facility: [facility] Address: [address] [place] [address] Performed By: #### 5 7021-8 ####[facility] [id number] [place] [address] [place] RBC (Bld) [#/Vol] 3.40 10*6/uL Low 3.90-5.20 [facility] Comment on above: Order Comment: Speci men Type: BLOOD SPECIMENOrdering Facility: [facility] Address: [address] [place] [address] Performed By: #### 5 7021-8 ####[facility] [id number] [place] [address] [place] WBC (Bld) [#/Vol] 8.63 10*3/uL Normal 3.70-11.00 [facility] Comment on above: Order Comment: Speci men Type: BLOOD SPECIMENOrdering Facility: [facility] Address: [address] [place] [address] Performed By: #### 5 7021-8 ####[facility] [id number] [place] [address] [place] GESTATIONAL GLUCOSE SCREEN, 1-HOUR, 50 GRAM, NON-FASTINGon 01-29-2025 Glucose [Mass/Vol] 91 mg/dL Normal 74-134 [facility] Comment on above: Order Comment: Speci men Type: BLOOD SPECIMENOrdering Facility: [facility] Address: [address] [place] [address] Result Comment: [facility] Congress of Obstetricians and Gynecologists (Pavel/Pavan) guidelines state a gestational diabetes mellitus positive screen is made, in women not previously diagnosed with overt diabetes, when the 1 hr plasma glucose level is equal to or above 140 mg/dL. The [facility] Injection Operator and Women's Health Gantt recommends a 135 mg/dL cutoff. Performed By: #### G LTGST ####[facility] [id number] [place] [id number] [place] Reagin and Treponema pallidu m IgG and IgM [Interp]on 01-29-2025 T. pallidum IgG+IgM IA Ql (S) Non-Reactive Normal Nonreactive [facility] Comment on above: Order Comment: Speci men Type: BLOOD SPECIMENOrdering Facility: [facility] Address: [address] [place] [address] Performed By: #### 7 3752-8 ####[facility] LABIA [id number] [place] [address] [place] Reagin+T pallidum IgG+IgM Se rPl-Impon 01-29-2025 Reagin and Treponema pallidum IgG and IgM [Interp] Cannot exclude recent Treponemal infection if specimen collected within 7-10 days after appearance of suspect lesions or 2-3 weeks after an exposure. Clinical correlation is required. Normal [facility] Comment on above: Order Comment: Speci men Type: BLOOD SPECIMENOrdering Facility: [facility] Address: [address] [place] [address] Performed By: #### 7 3752-8 ####[facility] [id number] [place] [address] [place] CNOVon 01-26-2025 CNOV Office Visit (UCWSTR ) -------- TIFFANIE CORTEZ ([id number]) 1990 F T Date Time Provider Department 01/26/25 2:30 PM [facility] During your visit today, we recorded the following information about you: Temperature Pulse Respiration Blood pressure 98.2 degrees 95/minute 16/minute 122/82 Weight 90.6 kg Chichi Bell APRN.ELEVATOR SERVICE MECHANIC 01/26/2025 2:51 PM Signed Subjective The history is provided by the patient. No sales and marketing director was used. BRITTANY Cortez is a 34 year old female who presents today for CC of Sinus congestion, headache, post nasal drainge, ear pain, dental pain. This started 3 weeks ago and is worsening. She has used tylenol with short term relief. She is currenlty 29 weeks . BP 122/82 Pulse 95 Temp 36.8 ?C (98.2 ?F) (Tympanic) Resp 16 Wt 90.6 kg (199 lb 11.8 oz) LMP 07/08/2024 (Exact Date) SpO2 99% BMI 29.75 kg/m? Social History Tobacco Use Smoking status: Former Current packs/day: 0.00 Types: Cigarettes Start date: 09/28/2012 Quit date: 09/28/2020 Years since quittin.3 Smokeless tobacco: Never Tobacco comments: Pt uses nicotine vape Vaping Use Vaping status: current everyday user Substances: Nicotine (2%) Substance Use Topics Alcohol use: Not Currently Drug use: Not Currently Types: Amphetamines, Heroin PAST MEDICAL HISTORY Diagnosis Date Abnormal glandular Papanicolaou smear of cervix 2000 Bilateral ovarian cysts depression Gestational diabetes mellitus, class A1 (HCC) 03/15/2021 Gestational diabetes mellitus, class A2 (HCC) 03/15/2021 03/14/23-1hr GCT elevated, did not complete 3hr GTT because she was sick after this last . Will presume GDM and testing for duration of . Growth US every 4 weeks. Kristen Farr APRN.CNM History of drug use meth and heroine. Denies use x 1 year 09/2020 History of hepatitis C 11/26/2020 Migraine without aura and without status migrainosus, not intractable I have confirmed and edited as necessary, the [facility] Review of Systems Constitutional: Negative for chills and fever. HENT: Positive for congestion, ear pain and sinus pain. Negative for sore throat. Post nasal drainage Respiratory: Positive for cough. Negative for sputum production, shortness of breath and wheezing. Cardiovascular: Negative for chest pain. Musculoskeletal: Negative for myalgias. Neurological: Positive for headaches. Objective Physical Exam Vitals and nursing note reviewed. HENT: Head: Normocephalic and atraumatic. Right Ear: Tympanic membrane, ear canal and external ear normal. Left Ear: Tympanic membrane, ear canal and external ear normal. Nose: No mucosal edema, congestion or rhinorrhea. Right Sinus: No maxillary sinus tenderness or frontal sinus tenderness. Left Sinus: No maxillary sinus tenderness or frontal sinus tenderness. Mouth/Throat: Pharynx: Uvula midline. No oropharyngeal exudate or posterior oropharyngeal erythema. Cardiovascular: Rate and Rhythm: Normal rate and regular rhythm. Heart sounds: Normal heart sounds. Pulmonary: Effort: Pulmonary effort is normal. Breath sounds: Normal breath sounds. Lymphadenopathy: Head: Right side of head: No submental, submandibular or tonsillar adenopathy. Left side of head: No submental, submandibular or tonsillar adenopathy. Cervical: No cervical adenopathy. Skin: General: Skin is warm and dry. Neurological: Mental Status: She is alert. Psychiatric: Mood and Affect: Affect normal. History and Record Review External record(s) reviewed: prior outpatient record. Findings from review of outpatient records: gestioin, complications Systemic symptoms present included: Headache, dental pain Differential Diagnoses - sinusitis is more likely for the following reason(s): symptoms 3 weeks not improving, suggested by HANDP - viral uri is less likely for the following reason(s): HANDP not suggestive Contributing Factors Chronic conditions affecting care: ASSESSMENT/PLAN: 1. Acute non-recurrent pansinusitis - ICD9: 461.8, ICD10: J01.40 - Will begin treatment with Augmentin 875 mg PO BID for 5 days - The patient should also be given nasal saline - Supportive care with plenty of fluids, rest, and tylenol - Follow up in one week if symptoms persist or worsen. - sudafed as discussed. Diagnosis and treatment plan were discussed and questions were answered to the patient's satisfaction. Pt acknowledged understanding of concepts and follow up plan. Specific signs and symptoms that would indicate the need for higher level of care were discussed in detail warranting prompt ER evaluation. EMELYN Trevino Tonya, APRN.CNP 01/26/2025 2:48 PM Signed -Increase fluid intake. --Rest as much as possible. - Nasal saline spray, tristen pot, flonase Take the entire course of antibiotics as pre (more content not included)... Normal [facility] TIFFANIE CORTEZ ([id number]) 1990 [facility] Date Time Provider Department 01/13/25 ELEANOR DENNEY OBGYWM During your visit today, we recorded the following information about you: Cari Sorto RN 01/13/2025 12:07 PM Signed Patient 27w0d calling with concerns of what she describes as a lightening bolt headache. Patient states she will have a severe pain in the left side of her head from the back to the front of her forehead that lasts a couple of minutes and occurs 3-4 times a day for the last week and a half. When pain occurs she rates at a 7 out of 10. Per last office visit note on 12/27 patient had stopped taking PNV as they were causing headaches. Patient state she stopped taking her PNV about 2 months ago and that her headaches did stop after doing so until the last week and a half when these episodes started. Patient denies any vision changes. States she is staying well hydrated. Next appointment is not until 01/24. GRANT Gonzales Jennifer, MD 01/13/2025 12:23 PM Signed Given her hx of migraines that is probably what is happening. She should try taking magnesium every day. And increase her water intake. Cari Sorto RN 01/13/2025 12:31 PM Signed Patient notified and voiced understanding. Cari Sorto RN Allergies As of Date: 01/13/2025 (No Known Allergies) Date Reviewed: 12/27/2024 Reviewed by: Master Alfaro MA - Fully Assessed Reason for Visit: Headache [52] Cmt: Prescriptions as of 01/13/2025 - FLUoxetine (PROZAC) 20 mg capsule Take 1 capsule by mouth once daily. - gabapentin (NEURONTIN) 300 mg capsule Take 1 capsule by mouth three times a day for 60 days. - PNV Comb #4-Jvvu-Vbjow 3-FA (COMPLETE CHRIST DHA) 29 mg iron- 1 mg-200 mg cmpk Take 1 Dose by mouth once daily. - Magnesium Oxide 420 mg tab Take 1 tablet by mouth once daily. - aspirin, enteric coated (ECOTRIN LOW STRENGTH) 81 mg EC tablet Take 1 tablet by mouth once daily. - acetaminophen 325 mg cap Take by mouth as directed. Problem List As Of Date 01/13/2025 Noted Resolved History of depression [Z86.59] 10/01/2020 History of cryosurgery of cervix complicating p*10/01/2020 History of intravenous drug use in remission [Z*10/01/2020 Supervision of high risk , antepartum *10/01/2020 History of hepatitis C [Z86.19] 11/26/2020 Abnormal glucose in , antepartum [O99.*11/26/2020 06/28/2021 Gestational diabetes mellitus, class A2 [O24.41*03/15/2021 09/20/2024 History of gestational diabetes in prior pregna*06/28/2021 Vapes nicotine containing substance [Z72.0] 09/16/2022 Chronic pain of both hips [M25.551, M25.552, G8*05/03/2024 10/04/2024 Hip dysplasia, acquired, 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] 06/18/2024 Anxiety during [O99.340, F41.9] 09/20/2024 Attention deficit hyperactivity disorder (ADHD)*09/20/2024 headache in first trimester [O26.891,*09/20/2024 Constipation during in first trimeste*09/20/2024 History of joint pain [Z87.39] 09/20/2024 Nausea and vomiting during [O21.9] 09/20/2024 Heartburn during in first trimester [*09/20/2024 Encounter Status:Closed by CARI SORTO on 01/13/25 [facility] CNCOon 12-05-2024 CNCO Letter Text [facility] CNPNon 12-02-2024 CNPN Telephone ([id number]) -------- DIEGOTIFFANIE ([id number]) 1990 F [facility] Date Time Provider Department 12/02/24 ELEANOR ROCHA [id number] During your visit today, we recorded the following information about you: Eleanor Rocha RN 12/02/2024 8:48 AM Signed 2nd risk assessment form submitted 12/02/2024. Eleanor Rocha RN Allergies As of Date: 12/02/2024 (No Known Allergies) Date Reviewed: 11/29/2024 Reviewed by: Luan Lindquist MA - Fully Assessed Reason for Visit: Supervisor Asbestos Removal - Other [3602] Cmt: PRAF Prescriptions as of 12/02/2024 - gabapentin (NEURONTIN) 300 mg capsule Take 1 capsule by mouth three times a day for 30 days. - PNV Comb #7-Iejp-Xepno 3-FA (COMPLETE DHA) 29 mg iron- 1 mg-200 mg cmpk Take 1 Dose by mouth once daily. - Magnesium Oxide 420 mg tab Take 1 tablet by mouth once daily. - aspirin, enteric coated (ECOTRIN LOW STRENGTH) 81 mg EC tablet Take 1 tablet by mouth once daily. - acetaminophen 325 mg cap Take by mouth as directed. Problem List As Of Date 12/02/2024 Noted Resolved History of depression [Z86.59] 10/01/2020 History of cryosurgery of cervix complicating p*10/01/2020 History of intravenous drug use in remission [Z*10/01/2020 Supervision of high risk , antepartum *10/01/2020 History of hepatitis C [Z86.19] 11/26/2020 Abnormal glucose in , antepartum [O99.*11/26/2020 06/28/2021 Gestational diabetes mellitus, class A2 [O24.41*03/15/2021 09/20/2024 History of gestational diabetes in prior pregna*06/28/2021 Vapes nicotine containing substance [Z72.0] 09/16/2022 Chronic pain of both hips [M25.551, M25.552, G8*05/03/2024 10/04/2024 Hip dysplasia, acquired, 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] 06/18/2024 Anxiety during [O99.340, F41.9] 09/20/2024 Attention deficit hyperactivity disorder (ADHD)*09/20/2024 headache in first trimester [O26.891,*09/20/2024 Constipation during in first trimeste*09/20/2024 History of joint pain [Z87.39] 09/20/2024 Nausea and vomiting during [O21.9] 09/20/2024 Heartburn during in first trimester [*09/20/2024 Encounter Status:Closed by ELEANOR ROCHA on 12/02/24 Normal [facility] Examination level ultrasound on 11-29-2024 Indication Standard anatomic survey Impression REMOTE READ The patient is referred for a standard anatomic survey. - Single, live, intrauterine . - biometry is consistent with the established gestational age. - No malformations were visualized on a complete standard anatomic survey. - The amniotic fluid volume is normal amount. - The placenta is posterior, fundal. - The Transabdominal cervical length measures 31.8 mm with no evidence of funneling or other dynamic changes. - Not all structural malformations can be detected by ultrasound examination. Recommendations Additional follow-up as clinically indicated. Maternal Assessment Height 175 cm Height (ft) 5 ft Height (in) 9 in Physical Exam Initial weight (lb) 192 lb Initial BMI 28.35 kg/m Maternal assessment other: 3 Para 2 Method Transabdominal ultrasound examination. View: Suboptimal view: limited by position Sharma . Number of fetuses: 1 Dating LMP on: 07/08/2024 GA by LMP 20 w + 4 d LAURA by LMP: 04/14/2025 GA by prior assessment 20 w + 4 d LAURA by prior assessment: 04/14/2025 Ultrasound examination on: 11/29/2024 GA by U/S based upon: AC, BPD, Femur, HC GA by U/S 21 w + 0 d LAURA by U/S: 04/11/2025 Assigned: based on stated LAURA, selected on 11/29/2024 Assigned GA 20 w + 4 d Assigned LAURA: 04/14/2025 General Evaluation Cardiac activity present. FHR 156 bpm. movements: present. Presentation: transverse head right Placenta: Placental site: posterior, fundal Umbilical cord: Cord vessels: 3 vessel cord Amniotic fluid: Amount of AF: normal amount. MVP 7.4 cm Growth Overview Exam date GA BPD (mm) HC (mm) AC (mm) FL (mm) HL (mm) EFW (g) 11/29/2024 20w 4d 48.8 58% 185.4 60% 169.2 84% 33.1 56% 32.5 63% 404 75% Biometry Standard BPD 48.8 mm 20w 5d 58% Hadlock OFD 66.5 mm 20w 6d 88% Nicolaides HC 185.4 mm 20w 6d 60% Joanne Cerebellum tr 21.7 mm 20w 3d 64% Hill Nuchal fold 5.5 mm AC 169.2 mm 21w 6d 84% Hadlock Femur 33.1 mm 20w 4d 56% Joanne Humerus 32.5 mm 21w 0d 63% Joanne EFW 404 g 21w 0d 75% Hadlock EFW (lb) 0 lb EFW (oz) 14 oz EFW by: Hadlock (HC-AC-FL) Extended Contract Negotiation Manager 5.2 mm CM 4.3 mm 22% Nicolaides Extremities / Bony Struc FL / HC 0.18 17% Hadlock Other Structures FHR 156 bpm Anatomy Cranium: normal Lateral ventricles: normal Choroid plexus: normal Midline falx: normal Cavum septi pellucidi: normal Cerebellum: normal Cisterna magna: normal Head / Neck Vermis: Normal but not required for a standard anatomy exam Neck: Normal but not required for a standard anatomy exam Nuchal fold: Normal but not required for a standard anatomy exam Lips: normal Profile: Normal but not required for a standard anatomy exam Nose: Normal but not required for a standard anatomy exam Face Maxilla: Normal but not required for a standard anatomy exam Mandible: Normal but not required for a standard anatomy exam Orbits: Normal but not required for a standard anatomy exam Lens: Normal but not required for a standard anatomy exam 4-chamber view: normal RVOT view: normal LVOT view: normal 3-vessel view: normal 1-xybtmo-wlredmy view: normal Heart / Thorax Situs: situs solitus (normal) Aortic arch view: Normal but not required for a standard anatomy exam SVC: Normal but not required for a standard anatomy exam IVC: Normal but not required for a standard anatomy exam Cardiac axis: normal Rt lung: Normal but not required for a standard anatomy exam Lt lung: Normal but not required for a standard anatomy exam Diaphragm: Normal but not required for a standard anatomy exam Cord insertion: normal Stomach: normal Kidneys: normal Bladder: normal Genitals: normal Abdomen Abdom. wall: normal Cervical spine: normal Thoracic spine: normal Lumbar spine: normal Sacral spine: normal Arms: normal Legs: normal Rt upper arm: normal Rt forearm: normal Rt hand: normal Rt fingers: normal Lt upper arm: normal Lt forearm: normal Lt hand: normal Lt fingers: normal Rt upper leg: normal Rt lower leg: normal Rt foot: normal Lt upper leg: normal Lt lower leg: normal Lt foot: normal sex: male Wants to know sex: yes Maternal Structures Uterus / Cervix Uterus: Visualized Cervix: Visualized Approach: Transabdominal Cervical length 31.8 mm Other: Patient declined transvaginal ultrasound for cervical length. Ovaries / Tubes / Adnexa Rt ovary: Visualized Lt ovary: Not visualized Performed By: Cari Jones RDMS, RVT Read By: Promise Jones M.D. MATERNAL MEDICINE [facility] Radiology Study observation (narrative) [facility] [id number] PLUSon 10-05-2024 Cell-free DNA./Cell-free DNA.total Dosage of chromosome-specific cfDNA (cfDNA) [Molar fraction] 12% Normal [facility] Comment on above: Order Comment: Speci men Type: BLOOD SPECIMENOrdering Facility: [facility] Address: [address] [place] [address] Performed By: #### M AT21 ####[facility] LABCLIA [id number] [place] [address] Chr 13+18+21+X+Y aneuploidy Dosage of chromosome-specific cfDNA Ql (cfDNA) Negative Normal [facility] Comment on above: Order Comment: Speci men Type: BLOOD SPECIMENOrdering Facility: [facility] Address: [address] [place] [address] Performed By: #### M AT21 ####[facility] LABCLIA [id number] [place] [address] Chr 21 trisomy Dosage of chromosome-specific cfDNA Ql (cfDNA) Negative Normal [facility] Comment on above: Order Comment: Speci men Type: BLOOD SPECIMENOrdering Facility: [facility] Address: [address] [place] [address] Performed By: #### M AT21 ####[facility] LABCLIA [id number] [place] [address] Chr X and Y aneuploidy risk Sequencing Ql (cfDNA) [Interp] Not detected Normal [facility] Comment on above: Order Comment: Speci men Type: BLOOD SPECIMENOrdering Facility: [facility] Address: [address] [place] [address] Result Comment: Not Detected Not Detected Performed By: #### M AT21 ####[facility] LABCLIA [id number] [place] [id number] Citation Martín (Reference lab test) Comment Normal [facility] Comment on above: Order Comment: Speci men Type: BLOOD SPECIMENOrdering Facility: [facility] Address: [address] [place] [address] Result Comment: 1. P john JONES, et al. Yudi Med. 2012;14(3):296-305. 2. Brandi BUTCHER et al. Prenat Diag. 2013;33(6):591-597. 3. Capo C, et al. Clin Chem. 2015 Apr;61(4):608-616. 4. Aneesh JONES et al. Yudi Med. 2011;13(11):913-920. 5. ACOG/SMFM Practice Bulletin No. 226, Jun 2020. Performed By: #### M AT21 ####[facility] LABCLIA [id number] [place] [id number] Gestational age Estimated from conception date Sharma Normal [facility] Comment on above: Order Comment: Speci men Type: BLOOD SPECIMENOrdering Facility: [facility] Address: [address] [place] [address] Performed By: #### M AT21 ####[facility] LABCLIA [id number] [place] [id number] GESTATIONALAGE AGE > OR = 9W Yes Normal [facility] Comment on above: Order Comment: Speci men Type: BLOOD SPECIMENOrdering Facility: [facility] Address: [address] [place] [address] Performed By: #### M AT21 ####[facility] LABCLIA [id number] [place] [id number] Laboratory comment Martín (Report) Comment Normal [facility] Comment on above: Order Comment: Sandi acosta Type: BLOOD SPECIMENOrdering Facility: [facility] Address: [address] [place] [address] Result Comment: The MaterniT(R) 21 PLUS laboratory-developed test (LDT) analyzes circulating cell-free DNA from a maternal blood sample. This test is used for screening purposes and not diagnostic. Clinical correlation is recommended. Validation data on twin pregnancies is limited and the ability of this test to detect aneuploidy in higher multiple gestations has not yet been validated. Performed By: #### M AT21 ####[facility] LABCLIA [id number] [place] [id number] energy systems laboratory director name Nom (Provider) Comment Normal [facility] Comment on above: Order Comment: Speci men Type: BLOOD SPECIMENOrdering Facility: [facility] Address: [address] [place] [address] Result Comment: This specimen showed an expected representation of chromosome 21, 18 and 13 material. Clinical correlation is suggested. Comment Biran Dill MD, PhD, Director, [employer] Performed By: #### M AT21 ####[facility] LABCLIA [id number] [place] [id number] LIMITATIONS OF THE TEST Comment Normal [facility] Comment on above: Order Comment: Daciai dave Type: BLOOD SPECIMENOrdering Facility: [facility] Address: [address] [place] [address] Result Comment: Whil e the results of these tests are highly reliable, discordant results, including inaccurate sex prediction, may occur due to placental, maternal, or mosaicism or neoplasm; vanishing twin; prior maternal organ transplant; or other causes. These tests are screening tests and not diagnostic; they do not replace the accuracy and precision of diagnosis with CVS or amniocentesis. A patient with a positive test result should be referred for genetic counseling and offered invasive diagnosis for confirmation of test results.[5] The results of this testing, including the benefits and limitations, should be discussed with a qualified healthcare provider. management decisions, including termination of the , should not be based on the results of these tests alone. The healthcare provider is responsible for the use of this information in the management of their patient. Sex chromosomal aneuploidies are not reportable for known multiple gestations. A negative result does not ensure an unaffected nor does it exclude the possibility of other chromosomal abnormalities or defects which are not a part of these tests. An uninformative result may be reported, the causes of which may include, but are not limited to, insufficient sequencing coverage, noise or artifacts in the region, amplification or sequencing bias, or insufficient fraction. These tests are not intended to identify pregnancies at risk for neural tube defects or ventral wall defects. Testing for whole chromosome abnormalities (including sex chromosomes) and for subchromosomal abnormalities could lead to the potential discovery of both and maternal genomic abnormalities that could have major, minor, or no, clinical significance. Evaluating the significance of a positive or a non-reportable result may involve both invasive testing and additional studies on the mother. Such investigations may lead to a diagnosis of maternal chromosomal or subchromosomal abnormalities, which on occasion may be associated with benign or malignant maternal neoplasms. These tests may not accurately identify triploidy, balanced rearrangements, or the precise location of subchromosomal duplications or deletions; these may be detected by diagnosis with CVS or amniocentesis. The ability to report results may be impacted by maternal BMI, maternal weight, maternal systemic lupus erythematosus (SLE) and/or by certain pharmaceutical agents such as low molecular weight heparin (for example: Lovenox(R), Xaparin(R), Clexane(R) and Fragmin(R)). Performed By: #### M AT21 ####[facility] Spinal TechnologiesLABMARP [facility] [id number] [place] [address] Monosomy X risk Dosage of chromosome-specific cfDNA Ql (Plasma cell-free+WBC DNA) [Interp] Not detected Normal [facility] Comment on above: Order Comment: Speci men Type: BLOOD SPECIMENOrdering Facility: [facility] Address: [address] [place] [address] Performed By: #### M AT21 ####[employer]-ReissuedCORP LABCLIA [id number] [place] [address] NEGATIVE PREDICTIVE VALUE Note Normal [facility] Comment on above: Order Comment: Speci men Type: BLOOD SPECIMENOrdering Facility: [facility] Address: [address] [place] [address] Result Comment: The Negative Predictive Value (NPV) for trisomy 21, 18, and 13 is greater than 99%. The NPV for SCA and ESS cannot be calculated as SCA and ESS are only reported when an abnormality is detected. Performed By: #### M AT21 ####[facility] LABCLIA [id number] [place] [id number] NOTE Comment Normal [facility] Comment on above: Order Comment: Speci men Type: BLOOD SPECIMENOrdering Facility: [facility] Address: [address] [place] [address] Result Comment: See Notes HereOrThere. is a subsidiary of [employer], using the brand [employer]. This test was developed and its performance characteristics determined by [employer]. It has not been cleared or approved by the Food and Drug Administration. This laboratory is certified under the Clinical Laboratory Improvement Amendments (CLIA) as qualified to perform high complexity clinical laboratory testing and accredited by the [employer] [place] (CAP). If there is future clinical need for adding MaterniT GENOME testing, this specimen will be available until term. [facility] samples will not be retained beyond 60 days. [facility] patients will have to send a new sample for re-sequencing ([facility] Test Code: [id number]). Performed By: #### M AT21 ####[employer] LABCLIA [id number] [place] [address] PERFORMANCE CHARACTERISTICS Note Normal [facility] Comment on above: Order Comment: Speci men Type: BLOOD SPECIMENOrdering Facility: [facility] Address: [address], [place] [address] Result Comment: ! Sex ! Accuracy: 99.4% ! ! ! ! Region (associated syndrome) ! Est. Sens# ! Est. Spec ! ! ! ! Trisomy 21 (Down Syndrome) ! 99.1% ! 99.9% ! ! ! ! Trisomy 18 (Burnett Syndrome) ! >99.9% ! 99.6% ! ! ! ! Trisomy 13 (Patau Syndrome) ! 91.7% ! 99.7% ! ! ! ! Sex Chromosome Aneuploidies## ! 96.2% ! 99.7% ! ! ! * As reported in ISCA database nstd37 [https://www.ncbi.nlm.nih.gov/dbvar/studies/nstd37/ ] # Estimated Sensitivity. Sensitivity estimated across the observed size distribution of each syndrome [per ISCA database nstd37] and across the range of fractions observed in routine clinical NIPT. Actual sensitivity can also be influenced by other factors such as the size of the event, total sequence counts, amplification bias, or sequence bias. ## Sharma gestation only. Performed By: #### M AT21 ####[employer] LABFeifei.comIA [id number] [place] [address] POSITIVE PREDICTIVE VALUE N/A Normal [facility] Comment on above: Order Comment: Sandi acosta Type: BLOOD SPECIMENOrdering Facility: [facility] Address: [address] [place] [address] Performed By: #### M AT21 ####Star.me[employer]P LABCLIA [id number] [place] [address] Reference Lab Test Method Comment Normal [facility] Comment on above: Order Comment: Sandi acosta Type: BLOOD SPECIMENOrdering Facility: [facility] Address: [address] [place] [address] Result Comment: See Notes Circulating cell-free DNA was purified from the plasma component of maternal blood. The extracted DNA was then converted into a genomic DNA library for aneuploidy analysis of chromosomes 21, 18, and 13 via next generation sequencing.[1] Optional findings based on the test order include sex chromosome aneuploidy (SCA)[2], and enhanced sequencing series (ESS)[3], which will only be reported on as an additional finding when an abnormality is detected. SCA testing includes information on X and Y representation, while ESS testing includes deletions in selected regions (22q, 15q, 11q, 8q, 5p, 4p, 1p) and trisomy of chromosomes 16 and 22. Performed By: #### M AT21 ####[employer] LABFeifei.comIA [id number] [place] [address] Sex Dosage of chromosome-specific cfDNA Nom (cfDNA) Comment Normal [facility] Comment on above: Order Comment: Speci men Type: BLOOD SPECIMENOrdering Facility: [facility] Address: [address] [place] [address] Result Comment: Cons istent with Male Performed By: #### M AT21 ####[employer]-[facility] LABCLIA [id number] [place] [address] Test performance information Martín (Unsp spec) Comment Normal [facility] Comment on above: Order Comment: Speci men Type: BLOOD SPECIMENOrdering Facility: [facility] Address: [address] [place] [address] Result Comment: The performance characteristics of the MaterniT(R) 21 PLUS laboratory-developed test (LDT) have been determined in a clinical validation study with women at increased risk for chromosomal aneuploidy.[1-4] Performed By: #### M AT21 ####[employer]-Reissued[employer] LABCLIA [id number] [place] [address] Trisomy 13 risk Dosage of chromosome-specific cfDNA Ql (cfDNA) [Interp] Negative Normal [facility] Comment on above: Order Comment: Speci men Type: BLOOD SPECIMENOrdering Facility: [facility] Address: [address] [place] [address] Performed By: #### M AT21 ####[employer]-[facility] LABCLIA [id number] [place] [address] Trisomy 18 risk Dosage of chromosome-specific cfDNA Ql (Plasma cell-free+WBC DNA) [Interp] Negative Normal [facility] Comment on above: Order Comment: Speci men Type: BLOOD SPECIMENOrdering Facility: [facility] Address: [address] [place] [address] Performed By: #### M AT21 ####[employer]-[facility] LABCLIA [id number] [place] [address] CBC W Auto Differential pane l (Bld)on 10-04-2024 Basophils (Bld) [#/Vol] 0.04 10*3/uL Normal <0.11 [facility] Comment on above: Order Comment: Speci men Type: BLOOD SPECIMENOrdering Facility: [facility] Address: [address] [place] [address] Performed By: #### 5 7021-8 ####[facility] - VENICEWNCLIA [id number] [place] [address] [place] Basophils/100 WBC (Bld) 0.5 % Normal [facility] Comment on above: Order Comment: Speci men Type: BLOOD SPECIMENOrdering Facility: [facility] Address: [address] [place] [address] Performed By: #### 5 7021-8 ####[facility]PITALLIA [id number] [place] [address] [place] Differential cell count method Nom (Bld) Auto Normal [facility] Comment on above: Order Comment: Speci men Type: BLOOD SPECIMENOrdering Facility: [facility] Address: [address] [place] [address] Performed By: #### 5 7021-8 ####[facility] [id number] [place] [address] [place] Eosinophils (Bld) [#/Vol] 0.25 10*3/uL Normal <0.46 [facility] Comment on above: Order Comment: Speci men Type: BLOOD SPECIMENOrdering Facility: [facility] Address: [address] [place] [address] Performed By: #### 5 7021-8 ####[facility] JACKSONVILLENCLIA [id number] [place] [address] [place] Eosinophils/100 WBC (Bld) 3.0 % Normal [facility] Comment on above: Order Comment: Speci men Type: BLOOD SPECIMENOrdering Facility: [facility] Address: [address] [place] [address] Performed By: #### 5 7021-8 ####[facility]PITALL[facility] [id number] [place] [address] [place] Erythrocyte distribution width (RBC) [Ratio] 12.3 % Normal 11.5-15.0 [facility] Comment on above: Order Comment: Speci men Type: BLOOD SPECIMENOrdering Facility: [facility] Address: [address] [place] [address] Performed By: #### 5 7021-8 ####[facility] [id number] [place] [address] [place] Hematocrit (Bld) [Volume fraction] 40.3 % Normal 36.0-46.0 [facility] Comment on above: Order Comment: Speci men Type: BLOOD SPECIMENOrdering Facility: [facility] Address: [address] [place] [address] Performed By: #### 5 7021-8 ####[facility] [id number] [place] [address] [place] Hemoglobin (Bld) [Mass/Vol] 13.7 g/dL Normal 11.5-15.5 [facility] Comment on above: Order Comment: Speci men Type: BLOOD SPECIMENOrdering Facility: [facility] Address: [address] [place] [address] Performed By: #### 5 7021-8 ####[facility] [id number] [place] [address] [place] Immature granulocytes (Bld) [#/Vol] 10*3/uL Normal <0.10 [facility] Comment on above: Order Comment: Speci men Type: BLOOD SPECIMENOrdering Facility: [facility] Address: [address] [place] [address] Performed By: #### 5 7021-8 ####[facility] [id number] [place] [address] [place] Immature granulocytes/100 WBC (Bld) 0.2 % Normal [facility] Comment on above: Order Comment: Speci men Type: BLOOD SPECIMENOrdering Facility: [facility] Address: [address] [place] [address] Performed By: #### 5 7021-8 ####[facility] JACKSONVILLENCA [id number] [place] [address] [place] Lymphocytes (Bld) [#/Vol] 1.91 10*3/uL Normal 1.00-4.00 [facility] Comment on above: Order Comment: Speci men Type: BLOOD SPECIMENOrdering Facility: [facility] Address: [address] [place] [address] Performed By: #### 5 7021-8 ####[facility]LEBOBBIENCOMPASS [facility]ALTH [id number] [place] [address] [place] Lymphocytes/100 WBC (Bld) 22.9 % Normal [facility] Comment on above: Order Comment: Speci men Type: BLOOD SPECIMENOrdering Facility: [facility] Address: [address] [place] [address] Performed By: #### 5 7021-8 ####[facility] JACKSONVILLENCLI [id number] [place] [address] [place] MCH (RBC) [Entitic mass] 31.8 pg Normal 26.0-34.0 [facility] Comment on above: Order Comment: Speci men Type: BLOOD SPECIMENOrdering Facility: [facility] Address: [address] [place] [address] Performed By: #### 5 7021-8 ####[facility] [id number] [place] [address] [place] MCHC (RBC) [Mass/Vol] 34.0 g/dL Normal 30.5-36.0 [facility] Comment on above: Order Comment: Speci men Type: BLOOD SPECIMENOrdering Facility: [facility] Address: [address] [place] [address] Performed By: #### 5 7021-8 ####[facility] BRYANNAHARR[facility] [id number] [place] [address] [place] MCV (RBC) [Entitic vol] 93.5 fL Normal 80.0-100.0 [facility] Comment on above: Order Comment: Speci men Type: BLOOD SPECIMENOrdering Facility: [facility] Address: [address] [place] [address] Performed By: #### 5 7021-8 ####[facility] JACKSONVILLENCJulio [id number] [place] [address] [place] Monocytes (Bld) [#/Vol] 0.41 10*3/uL Normal <0.87 [facility] Comment on above: Order Comment: Speci men Type: BLOOD SPECIMENOrdering Facility: [facility] Address: [address] [place] [address] Performed By: #### 5 7021-8 ####[facility] [id number] [place] [address] [place] Monocytes/100 WBC (Bld) 4.9 % Normal [facility] Comment on above: Order Comment: Speci men Type: BLOOD SPECIMENOrdering Facility: [facility] Address: [address] [place] [address] Performed By: #### 5 7021-8 ####[facility] JACKSON[facility]ILLENCLI [id number] [place] [address] [place] Neutrophils (Bld) [#/Vol] 5.71 10*3/uL Normal 1.45-7.50 [facility] Comment on above: Order Comment: Speci men Type: BLOOD SPECIMENOrdering Facility: [facility] Address: [address] [place] [address] Performed By: #### 5 7021-8 ####[facility] VENICEWNCLIA [id number] [place] [address] [place] Neutrophils/100 WBC (Bld) 68.5 % Normal [facility] Comment on above: Order Comment: Speci men Type: BLOOD SPECIMENOrdering Facility: [facility] Address: [address] [place] [address] Performed By: #### 5 7021-8 ####[facility] [id number] [place] [address] [place] Nucleated RBC (Bld) [#/Vol] 10*3/uL Normal <0.01 [facility] Comment on above: Order Comment: Speci men Type: BLOOD SPECIMENOrdering Facility: [facility] Address: [address] [place] [address] Performed By: #### 5 7021-8 ####[facility] [id number] [place] [address] [place] Nucleated RBC/100 WBC (Bld) [Ratio] 0.0 /100 WBC Normal [facility] Comment on above: Order Comment: Speci men Type: BLOOD SPECIMENOrdering Facility: [facility] Address: [address] [place] [address] Performed By: #### 5 7021-8 ####[facility] [id number] [place] [address] [place] Platelet mean volume (Bld) [Entitic vol] 10.5 fL Normal 9.0-12.7 [facility] Comment on above: Order Comment: Speci men Type: BLOOD SPECIMENOrdering Facility: [facility] Address: [address] [place] [address] Performed By: #### 5 7021-8 ####[facility] JACKSONVILLENCLI [id number] [place] [address] [place] Platelets (Bld) [#/Vol] 222 10*3/uL Normal 150-400 [facility] Comment on above: Order Comment: Speci men Type: BLOOD SPECIMENOrdering Facility: [facility] Address: [address] [place] [address] Performed By: #### 5 7021-8 ####[facility] VENICEWNCLIA [id number] [place] [address] [place] RBC (Bld) [#/Vol] 4.31 10*6/uL Normal 3.90-5.20 [facility] Comment on above: Order Comment: Speci men Type: BLOOD SPECIMENOrdering Facility: [facility] Address: [address] [place] [address] Performed By: #### 5 7021-8 ####[facility] JACKSON[facility]ILLENCA [id number] [place] [address] [place] WBC (Bld) [#/Vol] 8.34 10*3/uL Normal 3.70-11.00 [facility] Comment on above: Order Comment: Speci men Type: BLOOD SPECIMENOrdering Facility: [facility] Address: [address] [place] [address] Performed By: #### 5 7021-8 ####[facility] JACKSONVILLENCLIA [id number] [place] [address] [place] Comprehensive metabolic 2000 panelon 10-04-2024 Albumin [Mass/Vol] 4.1 g/dL Normal 3.9-4.9 [facility] Comment on above: Order Comment: Speci men Type: BLOOD SPECIMENOrdering Facility: [facility] Address: [address] [place] [address] Performed By: #### 2 4323-8 ####[facility] VENICEWNCLIA [id number] [place] [address] [place] ALP [Catalytic activity/Vol] 68 U/L Normal 34-123 [facility] Comment on above: Order Comment: Speci men Type: BLOOD SPECIMENOrdering Facility: [facility] Address: [address] [place], [place] [address] Performed By: #### 2 4323-8 ####[facility] VENICEWNCLIA [id number] [place] [address] [place] ALT [Catalytic activity/Vol] 8 U/L Normal 7-38 [facility] Comment on above: Order Comment: Speci men Type: BLOOD SPECIMENOrdering Facility: [facility] Address: [address] [place] [address] Performed By: #### 2 4323-8 ####[facility] VENICEWNCLIA [id number] [place] [address] [place] Anion gap [Moles/Vol] 11 mmol/L Normal 8-15 [facility] Comment on above: Order Comment: Speci men Type: BLOOD SPECIMENOrdering Facility: [facility] Address: [address] [place] [address] Performed By: #### 2 4323-8 ####[facility]ITALL[facility] [id number] [place] [address] [place] AST [Catalytic activity/Vol] 10 U/L Low 13-35 [facility] Comment on above: Order Comment: Speci men Type: BLOOD SPECIMENOrdering Facility: [facility] Address: [address] [place] [address] Performed By: #### 2 4323-8 ####[facility] JACKSONVILLENCLIA [id number] [place] [address] [place] Bilirubin [Mass/Vol] 0.3 mg/dL Normal 0.2-1.3 [facility] Comment on above: Order Comment: Speci men Type: BLOOD SPECIMENOrdering Facility: [facility] Address: [address] [place] [address] Performed By: #### 2 4323-8 ####[facility] ANGEL MILLTOWNCLIA [id number] [place] [address] [place] Calcium [Mass/Vol] 9.3 mg/dL Normal 8.5-10.2 [facility] Comment on above: Order Comment: Speci men Type: BLOOD SPECIMENOrdering Facility: [facility] Address: [address] [place] [address] Performed By: #### 2 4323-8 ####[facility] MILLTOWNCLIA [id number] [place] [address] [place] Chloride [Moles/Vol] 100 mmol/L Normal 98-107 [facility] Comment on above: Order Comment: Speci men Type: BLOOD SPECIMENOrdering Facility: [facility] Address: [address] [place] [address] Performed By: #### 2 4323-8 ####[facility] MILLWNCLIA [id number] [place] [address] [place] CO2 [Moles/Vol] 24 mmol/L Normal 22-30 [facility] Comment on above: Order Comment: Speci men Type: BLOOD SPECIMENOrdering Facility: [facility] Address: [address] [place] [address] Performed By: #### 2 4323-8 ####[facility] MILLTOWNCLIA [id number] [place] [address] [place] Creatinine [Mass/Vol] 0.54 mg/dL Low 0.58-0.96 [facility] Comment on above: Order Comment: Speci men Type: BLOOD SPECIMENOrdering Facility: [facility] Address: [address] [place] [address] Performed By: #### 2 4323-8 ####[facility] MILLWNCLIA [id number] [place] [address] [place] Creatinine and Glomerular filtration rate.predicted panel (S/P/Bld) 125 mL/min/1.73m??? Normal >=60 [facility] Comment on above: Order Comment: Sandi acosta Type: BLOOD SPECIMENOrdering Facility: [facility] Address: [address] [place] [address] Result Comment: Michelle mated Glomerular Filtration Rate (eGFR) is calculated using the 2020 CKD-EPI creatinine equation. This equation utilizes serum creatinine, sex, and age as parameters. The creatinine assay has traceable calibration to isotope dilution-mass spectrometry. Refer to KDIGO guidelines for clinical interpretation. In patients with unstable renal function, e.g. those with acute kidney injury, the eGFR may not accurately reflect actual GFR. Performed By: #### 2 4323-8 ####[facility] [id number] [place] [address] [place] Glucose [Mass/Vol] 86 mg/dL Normal 74-99 [facility] Comment on above: Order Comment: Sandi acosta Type: BLOOD SPECIMENOrdering Facility: [facility] Address: [address] [place] [address] Result Comment: The [place] [employer] (ADA) provides guidance for cutoff values for fasting glucose and random glucose. The ADA defines fasting as no caloric intake for at least 8 hours. Fasting plasma glucose results between 100 to 125 mg/dL indicate increased risk for diabetes (prediabetes). Fasting plasma glucose results greater than or equal to 126 mg/dL meet the criteria for diagnosis of diabetes. In the absence of unequivocal hyperglycemia, results should be confirmed by repeat testing. In a patient with classic symptoms of hyperglycemia or hyperglycemic crisis, random plasma glucose results greater than or equal to 200 mg/dL meet the criteria for diagnosis of diabetes. Reference: Standards of Medical Care in Diabetes 2016, [place] [employer]. Diabetes Care. 2016.39(Suppl 1). Performed By: #### 2 4323-8 ####[facility] [id number] [place] [address] [place] Potassium [Moles/Vol] 3.6 mmol/L Low 3.7-5.1 [facility] Comment on above: Order Comment: Speci men Type: BLOOD SPECIMENOrdering Facility: [facility] Address: [address] [place] [address] Performed By: #### 2 4323-8 ####[facility] LU[facility] ANGELADONAY NICEWNCLIA [id number] [place] [address] [place] Protein [Mass/Vol] 6.7 g/dL Normal 6.3-8.0 [facility] Comment on above: Order Comment: Speci men Type: BLOOD SPECIMENOrdering Facility: [facility] [facility] Address: [address] [place] [address] Performed By: #### 2 4323-8 ####[facility] MILLTOWBOBBILIA [id number] [place] [address] [place] Sodium [Moles/Vol] 135 mmol/L Low 136-144 [facility] Comment on above: Order Comment: Speci men Type: BLOOD SPECIMENOrdering Facility: [facility] Address: [address] [place] [address] Performed By: #### 2 4323-8 ####[facility] BRYANNAHARPREETWBOBBILIA [id number] [place] [address] [place] Urea nitrogen [Mass/Vol] 7 mg/dL Normal 7-21 [facility] Comment on above: Order Comment: Speci men Type: BLOOD SPECIMENOrdering Facility: [facility] Address: [address] [place] [address] Performed By: #### 2 4323-8 ####[facility] MILLHARPREETWBOBBILIA [id number] [place] [address] [place] nuchal translucency me asured by Radu 10-04-2024 Indication First trimester anatomic survey Impression REMOTE READ The patient is referred for a first trimester anatomy scan including nuchal translucency measurement as clinically indicated. - Single, live, intrauterine . - [place] rump length measurement is consistent with the established gestational age. - No malformations visualized on first trimester anatomic assessment. - The nuchal translucency measurement is 1.8 mm. - Not all structural malformations can be detected by ultrasound examination. Maternal Structures: Left Ovary: Size 26 mm x 25 mm x 18 mm Recommendations Return for anatomy ultrasound Maternal Assessment Height 175 cm Height (ft) 5 ft Height (in) 9 in Physical Exam Initial weight (lb) 192 lb Initial BMI 28.35 kg/m Maternal assessment other: 3 Para 2 Method Transabdominal ultrasound examination Sharma . Number of fetuses: 1 Dating LMP on: 07/08/2024 GA by LMP 12 w + 4 d LAURA by LMP: 04/14/2025 GA by prior assessment 12 w + 4 d LAURA by prior assessment: 04/14/2025 Ultrasound examination on: 10/04/2024 GA by U/S based upon: CRL GA by U/S 12 w + 6 d LAURA by U/S: 04/12/2025 Assigned: based on stated LAURA, selected on 10/04/2024 Assigned GA 12 w + 4 d Assigned LAURA: 04/14/2025 General Evaluation Cardiac activity present Placenta: posterior Cord vessels: 3 vessel cord Amniotic fluid: normal amount Biometry Standard FHR 157 bpm CRL 64.6 mm 12w 6d 59% Hadlock NT 1.80 mm First Trimester Anatomy Calvarium: normal Falx cerebri: normal Choroid plexus: visualized Profile: normal Nasal bone: normal Retronasal triangle: normal Maxilla: normal Mandible: normal Nuchal translucency: Unremarkable Situs: normal Cardiac position: normal Cardiac axis: normal 4-chamber view: visualized 4-chamber view with color: visualized [id number] view: suboptimal Abdominal cord insertion: normal Stomach: normal Kidneys: suboptimal Bladder: normal Color doppler of perivesical umbilical arteries: normal Vertebral alignment: normal Arms: normal Hands: normal Legs: normal Feet: normal Maternal Structures Uterus / Cervix Uterus: Visualized Uterus length 150 mm Uterus width 103 mm Uterus height 88 mm Uterus Vol 709.3 cm Ovaries / Tubes / Adnexa Rt ovary: Not visualized Lt ovary: Visualized Lt ovary D1 26 mm Lt ovary D2 25 mm Lt ovary D3 18 mm Lt ovary Vol 6.2 cm Performed By: Cari Jones RDMS, RVT Read By: Promise Jones, M.D. MATERNAL MEDICINE [facility] Radiology Study observation (narrative) [facility] HBV surface Ag Ser Qlon 09-18 HBV surface Ag Ql (S) Negative Normal Negative [facility] Comment on above: Order Comment: Speci men Type: BLOOD SPECIMENOrdering Facility: [facility] Address: [address] [place] [address] Performed By: #### 5 195-3, 19123-4, 65736-1 ####[facility] LABIA [id number] [place] [address] [place] HCV Ab Ser Qlon 10-04-2024 HCV Ab Ql (S) Positive Abnormal Negative [facility] Comment on above: Order Comment: Speci men Type: BLOOD SPECIMENOrdering Facility: [facility] Address: [address] [place] [address] Performed By: #### 1 6128-1, 30325-3 ####[facility] LABIA [id number] [place] [address] [place] HCV RNA CHANI+probe Qnon 10-04 HCV RNA CHANI+probe Ql Not detected Normal Not detected [facility] Comment on above: Order Comment: Speci men Type: BLOOD SPECIMENOrdering Facility: [facility] Address: [address] [place] [address] Performed By: #### 1 6128-1, 51845-4 ####[facility] LABIA [id number] [place] [address] [place] HIV 1+2 Ab IA Qlon HIV 1 and 2 Ab IA.rapid Nom (S/P/Bld) Normal [facility] Comment on above: Order Comment: Speci men Type: BLOOD SPECIMENOrdering Facility: [facility] Address: [address] [place] [address] Result Comment: Test not indicated. Performed By: #### 5 195-3, 08602-3, 27643-2 ####[facility] LABCLIA [id number] [place] [address] [place] HIV 1+2 Ab+HIV1 p24 Ag IA Ql Non-Reactive Normal Nonreactive [facility] Comment on above: Order Comment: Speci men Type: BLOOD SPECIMENOrdering Facility: [facility] Address: [address] [place] [address] Performed By: #### 5 195-3, 11944-0, 87099-8 ####[facility] LABCLIA [id number] [place] [address] [place] HIV immunoassay testing algorithm interpretation (S/P/Bld) [Interp] Normal [facility] Comment on above: Order Comment: Speci men Type: BLOOD SPECIMENOrdering Facility: [facility] Address: [address] [place] [address] Result Comment: No e vidence of HIV-1 or HIV-2 infection. Should recent infection be suspected, repeat testing may be considered 2-3 weeks after this draw. [place] Rev. Code 3701.243(E): This information has been disclosed to you from confidential records protected from disclosure by state law. ???You shall make no further disclosure of this information without the specific, written, and informed release of the individual to whom it pertains or as otherwise permitted by state law. A general authorization for the release of medical or other information is not sufficient for the purpose of the release of HIV test results or diagnoses. Performed By: #### 5 195-3, 16168-9, 08218-8 ####[facility] LABCLIA [id number] [place] [address] [place] HbA1c (Bld)on 10-04-2024 Average glucose Estimated from glycated hemoglobin (Bld) [Mass/Vol] 94 mg/dL Normal [facility] Comment on above: Order Comment: Speci men Type: BLOOD SPECIMENOrdering Facility: [facility] Address: [address] [place] [address] Result Comment: eAG: (Estimated average glucose) is a calculated value from HgbA1c and is factory representative of the average blood glucose level in the last 2-3 month period. Performed By: #### 5 5454-3 ####[facility] LABCLIA [id number] [place] [address] [place] HbA1c (Bld) [Mass fraction] 4.9 % Normal 4.3-5.6 [facility] Comment on above: Order Comment: Speci men Type: BLOOD SPECIMENOrdering Facility: [facility] Address: [address] [place] [address] Result Comment: [place] Diabetes Association guidelines indicate that patients with HgbA1c in the range 5.7-6.4% are at increased risk for development of diabetes, and intervention by lifestyle modification may be beneficial. HgbA1c greater or equal to 6.5% is considered diagnostic of diabetes. Performed By: #### 5 5454-3 ####[facility] LABCLIA [id number] [place] [address] [place] RUBELLA IGG ANTIBODYon 10-04 RUBELLA IGG AB, QUAL Positive Normal Positive [facility] Comment on above: Order Comment: Speci [facility] Type: BLOOD SPECIMENOrdering Facility: [facility] Address: [address] [place] [address] Result Comment: The result suggests recent or past exposure to Rubella virus or history of Rubella vaccination. Positive result may also be seen due to presence of passively-transferred antibodies. Please correlate with patient's history. Performed By: #### R UBIGG ####[facility] LABCLIA [id number] [place] [address] [place] Reagin and Treponema pallidu m IgG and IgM [Interp]on 10-04-2024 T. pallidum IgG+IgM IA Ql (S) Non-Reactive Normal Nonreactive [facility] Comment on above: Order Comment: Speci [facility] Type: BLOOD SPECIMENOrdering Facility: [facility] Address: [address] [place] [address] Performed By: #### 5 195-3, 80273-6, 07843-3 ####[facility] LABCLIA [id number] [place] [address] [place] Reagin+T pallidum IgG+IgM Se rPl-Impon 10-04-2024 Reagin and Treponema pallidum IgG and IgM [Interp] Cannot exclude recent Treponemal infection if specimen collected within 7-10 days after appearance of suspect lesions or 2-3 weeks after an exposure. Clinical correlation is required. Normal [facility] Comment on above: Order Comment: Speci men Type: BLOOD SPECIMENOrdering Facility: [facility] Address: [address] [place] [address] Performed By: #### 5 195-3, 01035-5, 08885-8 ####[facility] LABIA [id number] [place] [address] [place] TYPE + SCREEN PRENATALon ABO O Normal [facility] Comment on above: Order Comment: Speci men Type: BLOOD SPECIMENOrdering Facility: [facility] Address: [address] [place] [address] Performed By: #### T SPN ####[facility] BLOOD BANKIA [id number] [place] [address] [place] Rh Nom (Bld) Positive Normal [facility] Comment on above: Order Comment: Speci men Type: BLOOD SPECIMENOrdering Facility: [facility] Address: [address] [place] [address] Performed By: #### T SPN ####[facility] BLOOD BANKIA [id number] [place] [address] [place] TYPE AND SCREEN EXPIRATION 10/07/2024 23:59 Normal [facility] Comment on above: Order Comment: Speci men Type: BLOOD SPECIMENOrdering Facility: [facility] Address: [address] [place] [address] Performed By: #### T SPN ####[facility] BLOOD BANKIA [id number] [place] [address] [place] Aguilar 09-24-2024 CNPN Telephone (SPMOBA) -------- TIFFANIE CORTEZ ([id number]) 1990 F T Date Time Provider Department 09/24/24 MICHELLE BELTRÁN During your visit today, we recorded the following information about you: Michelle Beltrán RN 09/24/2024 9:11 AM Signed 1st risk assessment form submitted September 24, 2024. KAROLINA Taylor, RN OB Clinical Navigator [phone] Allergies As of Date: 09/24/2024 (No Known Allergies) Date Reviewed: 09/20/2024 Reviewed by: Zena Fontenot APRN.ELEVATOR SERVICE MECHANIC - Fully Assessed Reason for Visit: PRAF [4193] Cmt: Initial PRAF Prescriptions as of 09/24/2024 - aspirin, enteric coated (ECOTRIN LOW STRENGTH) 81 mg EC tablet Take 1 tablet by mouth once daily. - PNV no.95/ferrous fum/folic ac ( ORAL) Take by mouth. - gabapentin (NEURONTIN) 300 mg capsule Take 1 capsule by mouth three times a day for 60 days. - meloxicam (MOBIC) 15 mg tablet Take 1 tablet by mouth once daily. Patient should start on August 14, 2024. - acetaminophen 325 mg cap Take by mouth as directed. Problem List As Of Date 09/24/2024 Noted Resolved History of depression [Z86.59] 10/01/2020 History of cryosurgery of cervix complicating p*10/01/2020 History of intravenous drug use in remission [Z*10/01/2020 Supervision of high risk , antepartum *10/01/2020 History of hepatitis C [Z86.19] 11/26/2020 Abnormal glucose in , antepartum [O99.*11/26/2020 06/28/2021 Gestational diabetes mellitus, class A2 [O24.41*03/15/2021 09/20/2024 History of gestational diabetes in prior pregna*06/28/2021 Vapes nicotine containing substance [Z72.0] 09/16/2022 Chronic pain of both hips [M25.551, M25.552, G8*05/03/2024 Hip dysplasia, acquired, 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 Mixed microbiota can be due to???urine???contaminati on with skin bacteria at time of collection or presence of a long-term urinary catheter. If a new culture is needed, please consider re-education of the patient on proper midstream collection technique or straight catheterization for???urine???collection . Normal [facility] Comment on above: Performed By: #### 6 30-4 ####[facility] LABCLIA [id number] [place] [address] [place] C. trachomatis+N. gonorrhoea e DNA CHANI+probe Ql (Unsp spec)on 09-20-2024 C. trachomatis rRNA CHANI+probe Ql (Unsp spec) Not detected Normal Not detected [facility] Comment on above: Order Comment: Speci men Type: SWABOrdering Facility: [facility] Address: [address] [place] [address] Performed By: #### 3 6902-5 ####[facility] LABIA [id number] [place] [address] [place] N. gonorrhoeae rRNA CHANI+probe Ql (Unsp spec) Not detected Normal Not detected [facility] Comment on above: Order Comment: Speci men Type: SWABOrdering Facility: [facility] Address: [address] [place] [address] Performed By: #### 3 6902-5 ####[facility] [id number] [place] [address] [place] HIGH RISK HUMAN PAPILLOMA OG (HPV), PCR FOR DETECTION AND GENOTYPINGon 09-20-2024 HPV 16 Ag Ql (Unsp spec) Not detected Normal Not detected [facility] Comment on above: Order Comment: Speci men Type: FLUID SPECIMENOrdering Facility: [facility] Address: [address] [place] [address] Performed By: #### H PVHRT ####[facility] [id number] [place] [address] [place] HPV 18 Ag Ql (Unsp spec) Not detected Normal Not detected [facility] Comment on above: Order Comment: Speci men Type: FLUID SPECIMENOrdering Facility: [facility] Address: [address] [place] [address] Performed By: #### H PVHRT ####[facility] [id number] [place] [address] [place] HPV 31+33+35+39+45+51+52+ 56+58+59+66+68 DNA CHANI+probe Ql (Cvx) Not detected Normal Not detected [facility] Comment on above: Order Comment: Speci men Type: FLUID SPECIMENOrdering Facility: [facility] Address: [address] [place] [address] Result Comment: High Risk HPV Other Type includes HPV types 31, 33, 35, 39, 45, 51, 52, 56, 58, 59, 66 and 68. Performed By: #### H PVHRT ####[facility] LABCLIA [id number] [place] [id number] [place] PAP TESTon 09-20-2024 ADEQUACY Satisfactory for interpretation. Normal [facility] Comment on above: Order Comment: Speci men Type: FLUID SPECIMENOrdering Facility: [facility] Address: [address] [place] [address] Performed By: #### L [id number] ####[facility] LABCLIA [id number] [place] [address] [place] CASE REPORT Normal [facility] Comment on above: Order Comment: Speci men Type: FLUID SPECIMENOrdering Facility: [facility] Address: [address] [place] [address] Result Comment: Gyne cologic Cytology Report Case: [id number] Authorizing Provider: Zena Fontenot APRN.ELEVATOR SERVICE MECHANIC Collected: 09/20/2024 10:11 AM Ordering Location: OB/Gynecology Received: 09/20/2024 01:16 PM First Screen: Kristen Pandya, CT, ASCP Specimen: Pap Test, ThinPrep, Cervix Performed By: #### L [id number] ####[facility] LABCLIA [id number] [place] [address] [place] CLINICAL HISTORY, CYTOLOGY, PASS WORKER Positive Normal [facility] Comment on above: Order Comment: Speci men Type: FLUID SPECIMENOrdering Facility: [facility] Address: [address] [place] [address] Result Comment: Preg nant (Indicate Weeks) 10 weeks Performed By: #### L [id number] ####[facility] LABCLIA [id number] [place] [address] [place] FINAL PERFORMING LAB Normal [facility] Comment on above: Order Comment: Speci men Type: FLUID SPECIMENOrdering Facility: [facility] Address: [address] [place] [address] Result Comment: Tech nical component, chemical equipment sales engineer screening performed at [facility], [address] [id number] CLIA# [id number] Diagnostic interpretation performed at [facility], [address] [place] [address] CLIA# [id number] Blade Bender Furnace Tender: Jose Metz M.D. Performed By: #### L [id number] ####[facility] LABCLIA [id number] [place] [address] [place] INTERPRETATION, CYTOLOGY, PASS WORKER Normal [facility] Comment on above: Order Comment: Speci men Type: FLUID SPECIMENOrdering Facility: [facility] Address: [address] [place] [address] Result Comment: Nega tive for intraepithelial lesion or malignancy. Performed By: #### L [id number] ####[facility] LABCLIA [id number] [place] [address] [place] [facility] 07/08/2024 Normal [facility] Comment on above: Order Comment: Speci men Type: FLUID SPECIMENOrdering Facility: [facility] Address: [address] [place] [address] Performed By: #### L [id number] ####[facility] LABCLIA [id number] [place] [address] [place] PAP DISCLAIMER COMMENT The Pap Smear is a screening test for cervical cancer. False negative results occur with all screening tests, emphasizing the need for rescreening at recommended intervals, and clinical correlation. Normal [facility] Comment on above: Order Comment: Speci men Type: FLUID SPECIMENOrdering Facility: [facility] Address: [address] [place] [address] Performed By: #### L [id number] ####[facility] LABCLIA [id number] [place] [address] [place] PAP COW BUYER COMMENT This specimen has be en analyzed by the ThinPrep Imaging System, an automated imaging and review system, which assists the laboratory in evaluating cells on ThinPrep Pap tests. Following automated imaging, selected rosales from every slide are reviewed by a chemical equipment sales engineer. Normal [facility] Comment on above: Order Comment: Speci men Type: FLUID SPECIMENOrdering Facility: [facility] Address: [address] [place] [address] Performed By: #### L [id number] ####[facility] LABCLIA [id number] [facility] [id number] [id number] [place] POC MOTHER'S HELPER ULTRASOUNDon 09-20-19 Indication Viability; confirm cardiac activity Impression Single intrauterine gestational sac, CRL is appropriate for clinical dates, corresponding to LAURA 04/14/25 cardiac activity is visualized Recommendations Follow up for NT scan if desired Method Transabdominal ultrasound examination, Transvaginal ultrasound examination. View: Adequate visualization Sharma . Number of fetuses: 1 Dating LMP on: 07/08/2024 GA by LMP 10 w + 4 d LAURA by LMP: 04/14/2025 Ultrasound examination on: 09/20/2024 GA by U/S based upon: CRL GA by U/S 10 w + 4 d LAURA by U/S: 04/14/2025 Assigned: based on the LMP, selected on 09/20/2024 Assigned GA 10 w + 4 d Assigned LAURA: 04/14/2025 Biometry Standard FHR 174 bpm 77% Nicolaides CRL 37.0 mm 10w 4d 31% Hadlock Assessment Gestational sac: visualized Location: intrauterine Yolk sac: visualized Embryo: visualized CRL 37.0 mm 10w 4d 31% Hadlock Cardiac activity: present FHR 174 bpm 77% Nicolaides General Evaluation Cardiac activity present. FHR 174 bpm Performed By: Zena Fontenot NP Read By: Zena Fontenot NP MATERNAL MEDICINE [facility] Radiology Study observation (narrative) [facility] CNOVon 08-27-2024 CNOV Office Visit (PSWSTR ) -------- TIFFANIE CORTEZ ([id number]) 1990 F T Date Time Provider Department 08/27/24 10:00 AM KALYANI RIOS PSWSTR During your visit today, we recorded the following information about you: Pulse Respiration Blood pressure Weight 76/minute 18/minute 116/62 87.1 kg Kalyani Rios APRN.CNP 08/30/2024 10:59 PM Signed FOLLOW UP - PSYCHIATRIC PROGRESS NOTE PATIENT: Tiffanie Cortez DATE: August 27, 2024 Visit Type:In person All information is from Patient report except when noted. This evaluation is NOT intended for forensic, disability or child custody purposes. Kalyani Black APRN.CNP, personally performed the services described in this documentation. All medical record entries made by the [employer] student were at my direction and in my presence. I have reviewed the chart and discharge instructions (if applicable) and agree that the record reflects my personal performance and is accurate and complete. Kalyani Rios APRN.CNP August 30, 2024 CC: Presenting today for follow up regarding psychiatric medication management. HPI: Treatment Plan from Last Visit on 03/04/2024: TREATMENT PLAN: Increase Prozac to 80 mg to address panic symptoms as well as over thinking and irritability that is related to anxiety. Increase Gabapentin back to the 300 mg three times daily as needed to manage overwhelming episodes of anxiety. Start Wellbutrin 100 mg twice daily IR formulation to help with mood, motivation, and ability to focus and complete tasks. Patient is interested in ADHD assessment and has been scheduled for an in person visit to complete the assessment, lab test, vitals, and EKG at that visit. Today Tiffanie shares that Things have been stressful. 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 Mom had a heart attack recently, doing ok though. States she is not managing things well. Missing doctor's appointments. Overbooking self. Forgets to put appointments in her calendar. 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 States they have a 3 day weekend trip [place]. States she is doing therapy and had ADHD assessment there. This place also offers medication and she was going to have them manage it but they made some changes and she was not happy with it so not going back there. States they wanted her to take Wellbutrin and decrease the Gabapentin. They also wanted her to try Auvelity but she did not. Tried Wellbutrin before and it gave her headaches. Sees therapist every 2 weeks. Does not have copy of her ADHD assessment but states she was told she has severe ADHD. Advised she should obtain a copy and have it faxed here. Feels that her ADHD causes anxiety and depressive symptoms. Currently prescribed Prozac 60 mg daily and Gabapentin 300 mg TID. Is out of Gabapentin as of today. She did try to wean it down to 2 x day as they suggested but it didn't go well for her. EKG performed in office today. Interval Progress: Same PATIENT DATA: Generalized Anxiety Disorder Scale (CRIS-7) 01/01/2024 03/04/2024 08/27/2024 CRIS - 7 SCORES Score 14 14 15 (0-4) minimal anxiety, (5-9) mild anxiety, (10-14) moderate anxiety, (15-21) severe anxiety Patient Health Questionnaire (PHQ-9) 02/20/2024 03/04/2024 08/27/2024 PHQ-9 Score 5 17 14 (0-4) minimal depression, (5-9) mild depression, (10-14) moderate depression, (15-19) moderately severe depression, (20-27) severe depression PAST MEDICAL HISTORY Diagnosis Date Abnormal glandular Papanicolaou smear of cervix 2000 Bilateral ovarian cysts depression Gestational diabetes mellitus, class A1 03/15/2021 History of drug use meth and heroine. Denies use x 1 year 09/2020 History of hepatitis C 11/26/2020 Migraine without aura and without status migrainosus, not intractable PAST SURGICAL HISTORY Procedure Laterality Date CRYO CAUTERY CERVIX 2000 ALLERGIES No Known Allergies Current Outpatient Medications on File Prior to Visit Medication Sig meloxicam (MOBIC) 15 mg tablet Take 1 tablet by mouth once daily. Patient should start on August 14, 2024. FLUoxetine (PROZAC) 20 mg capsule Take 3 capsules by mouth once daily. gabapentin (NEURONTIN) 300 mg capsule Take 1 capsule by mouth three times a day for 60 days. silver sulfADIAZINE (SILVADENE) 1 % cream Apply to affected area once daily. (Patient not taking: Reported on 03/19/2024) acetaminophen 325 mg cap Take by mouth as directed. Inmnkwoi-Cj-Ioc-Fe-FA ( VITAMIN) tab Take 1 tablet by mouth. (Patient not taking: Reported on 06/17/2024) No current facility-administered medications on file prior to visit. ROS: See HPI PFSH (more content not included)... Normal [facility] [id number] 08-27-2024 ECG01 Ventricular Rate : 8 7 BPM Atrial Rate : 87 BPM P-R Interval : 144 ms QRS Duration : 102 ms Q-T Interval : 376 ms QTC Calculation(Bazett) : 452 ms Calculated P [place] : 10 degrees Calculated R [place] : 48 degrees Calculated T [place] : 44 degrees NORMAL SINUS RHYTHM INCOMPLETE RIGHT BUNDLE BRANCH BLOCK BORDERLINE ECG Confirmed by MD HERNÁNDEZ GREGORY () on 08/28/2024 12:01:23 PM NAME : TIFFANIE CORTEZ PID : [id number] : 1990 Gender : Female Race : ORD : Procedure Date : Aug 27 2024 10:38:40 Edit Date : Aug 28 2024 12:01:27 Diagnosis: NORMAL SINUS RHYTHM INCOMPLETE RIGHT BUNDLE BRANCH BLOCK BORDERLINE ECG Confirmed by MD HERNÁNDEZ GREGORY () on 08/28/2024 12:01:23 PM Test Reason : Location : 136 : [place] Overread By : MD HERNÁNDEZ GREGORY Edited By : MD HERNÁNDEZ GREGORY Referred By : KALYANI RIOS Acquired by : Alex quick [facility] TOXICOLOGY SCREEN, ROUTINE U RINEon 08-27-2024 Amphetamines Confirm (U) [Mass/Vol] Negative Negative [facility] Comment on above: Cutoff threshold at 1000 ng/mL. Barbiturates Urine Negative Negative [facility] Comment on above: Cutoff threshold at 200 ng/mL. Benzodiazepines Urine Negative Negative [facility] Comment on above: Cutoff threshold at 200 ng/mL. Cannabinoids Screen Ql (U) Negative Negative [facility] Comment on above: Cutoff threshold at 50 ng/mL. Cocaine Ql (U) Negative Negative [facility] Comment on above: Cutoff threshold at 300 ng/mL. Ethanol (U) [Mass/Vol] mg/dL NINF - 11 mg/dL [facility] Interpretation and review of laboratory results Normal [facility] Opiates Screen Ql (U) Negative Negative [facility] Comment on above: Cutoff threshold at 300 ng/mL. oxyCODONE cutoff Screen (U) [Mass/Vol] Negative Negative [facility] Comment on above: Cutoff threshold at 100 ng/mL. Phencyclidine Ql (U) Negative Negative [facility] Comment on above: Cutoff threshold at 25 ng/mL. Immunoassay screen o nly. Cross reactivity with other substances can occur with immunoassay screening. Detection of any drug(s) in this urine toxicology panel is presumptive only. These tests are for medical purposes only and should not be used for compliance monitoring, legal, or forensic use. Samples should be within normal physiological conditions (e.g. pH). This assay does not include adulteration/specimen validity testing. In clinical settings, confirmatory testing is at the practitioner's discretion [1]. If clinically indicated, confirmation by high specificity, quantitative methodology, which includes adulteration/specimen validity testing, may be requested on the same specimen through Client Services ([phone]) if contacted within 48 hours of initial testing. [1]Substance Abuse and Mental Health Services Administration (2012). Clinical Drug Testing in Primary Care Technical Assistance Publication Series 32. Department of Health and Human Services, [place], p.10. [facility] Amphetamines Confirm (U) [Mass/Vol] Negative Normal Negative [facility] Comment on above: Order Comment: Speci men Type: URINE SPECIMENOrdering Facility: [facility] Address: [address] [place] [address] Result Comment: Cuto ff threshold at 1000 ng/mL. Performed By: #### U TOX2 ####[facility] LABCLIA [id number] [place] [address] [place] BARBITURATES, URINE Negative Normal Negative [facility] Comment on above: Order Comment: Speci men Type: URINE SPECIMENOrdering Facility: [facility] Address: [address] [place] [address] Result Comment: Cuto ff threshold at 200 ng/mL. Performed By: #### U TOX2 ####[facility] LABCLIA [id number] [place] [address] [place] BENZODIAZEPINES, UR Negative Normal Negative [facility] Comment on above: Order Comment: Speci men Type: URINE SPECIMENOrdering Facility: [facility] Address: [address] [place] [address] Result Comment: Cuto ff threshold at 200 ng/mL. Performed By: #### U TOX2 ####[facility] LABCLIA [id number] [place] [address] [place] Cannabinoids Screen Ql (U) Negative Normal Negative [facility] Comment on above: Order Comment: Speci men Type: URINE SPECIMENOrdering Facility: [facility] Address: [address] [place] [address] Result Comment: Cuto ff threshold at 50 ng/mL. Performed By: #### U TOX2 ####[facility] LABCLIA [id number] [place] [address] [place] Cocaine Ql (U) Negative Normal Negative [facility] Comment on above: Order Comment: Speci men Type: URINE SPECIMENOrdering Facility: [facility] Address: [address] [place] [address] Result Comment: Cuto ff threshold at 300 ng/mL. Performed By: #### U TOX2 ####[facility] LABCLIA [id number] [place] [address] [place] Ethanol (U) [Mass/Vol] <11 Normal <11 [facility] Comment on above: Order Comment: Speci men Type: URINE SPECIMENOrdering Facility: [facility] Address: [address] [place] [address] Performed By: #### U TOX2 ####[facility] LABCLIA [id number] [place] [address] [place] Opiates Screen Ql (U) Negative Normal Negative [facility] Comment on above: Order Comment: Speci men Type: URINE SPECIMENOrdering Facility: [facility] Address: [address] [place] [address] Result Comment: Cuto ff threshold at 300 ng/mL. Performed By: #### U TOX2 ####[facility] LABIA [id number] [place] [address] [place] oxyCODONE cutoff Screen (U) [Mass/Vol] Negative Normal Negative [facility] Comment on above: Order Comment: Speci men Type: URINE SPECIMENOrdering Facility: [facility] Address: [address] [place] [address] Result Comment: Cuto ff threshold at 100 ng/mL. Performed By: #### U TOX2 ####[facility] [id number] [place] [address] [place] Phencyclidine Ql (U) Negative Normal Negative [facility] Comment on above: Order Comment: Speci men Type: URINE SPECIMENOrdering Facility: [facility] Address: [address] [place] [address] Result Comment: Cuto ff threshold at 25 ng/mL. Performed By: #### U TOX2 ####[facility] LABIA [id number] [address] [place] CNPNon 07-17-2024 CNPN Telephone (FAMPWS) -------- TIFFANIE CORTEZ ([id number]) 1990 F T Date Time Provider Department 07/17/24 MAMIE BAXTER During your visit today, we recorded the following information about you: Mamie Baxter PA-C 07/17/2024 10:47 AM Signed Glucose was low at time of lab draw. Advise patient to eat well balanced meals. Kidney function is normal Cholesterol is normal. She will see on mychart that her LDL is flagged high at 105. Under 130 is okay for someone who is otherwise healthy. Just eat balanced meals. Limit saturated fats. Master Sequeira RN 07/17/2024 10:52 AM Signed Pt called and is notified of providers results and instructions. Pt voices understanding. Master Sequeira RN Allergies As of Date: 07/17/2024 (No Known Allergies) Date Reviewed: 07/16/2024 Reviewed by: Katie Winn LPN - Fully Assessed Reason for Visit: Results [95] Prescriptions as of 07/17/2024 - meloxicam (MOBIC) 15 mg tablet Take 1 tablet by mouth once daily. Patient should start on August 14, 2024. - FLUoxetine (PROZAC) 20 mg capsule Take 3 capsules by mouth once daily. - gabapentin (NEURONTIN) 300 mg capsule Take 1 capsule by mouth three times a day for 60 days. - silver sulfADIAZINE (SILVADENE) 1 % cream Apply to affected area once daily. - acetaminophen 325 mg cap Take by mouth as directed. - Pakkkjhc-Xq-Hap-Fe-FA ( VITAMIN) tab Take 1 tablet by mouth. Problem List As Of Date 07/17/2024 Noted Resolved History of depression [Z86.59] 10/01/2020 History of cryosurgery of cervix complicating p*10/01/2020 Obesity in [O99.210] 10/01/2020 History of nicotine vaping [Z87.891] 10/01/2020 History of intravenous drug use in remission [Z*10/01/2020 Patient request for diagnostic testing [Z01.89] 10/01/2020 Supervision of high risk , antepartum *10/01/2020 History of hepatitis C [Z86.19] 11/26/2020 Abnormal glucose in , antepartum [O99.*11/26/2020 06/28/2021 Gestational diabetes mellitus, class A2 [O24.41*03/15/2021 History of gestational diabetes in prior pregna*06/28/2021 Vapes nicotine containing substance [Z72.0] 09/16/2022 Supervision of high risk in first tri*10/10/2022 Moderate episode of recurrent major depressive *10/24/2023 Chronic pain of both hips [M25.551, M25.552, G8*05/03/2024 Hip dysplasia, acquired, 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] 06/18/2024 Encounter Status:Closed by MASTER SEQUEIRA on 07/17/24 Normal [facility] Basic metabolic 2000 panelon 07-16-2024 Anion gap [Moles/Vol] 12 mmol/L Normal 8-15 [facility] Comment on above: Order Comment: Speci men Type: BLOOD SPECIMENOrdering Facility: [facility] Address: [address] [place] [address] Performed By: #### 2 4321-2, LIPNF ####[facility] LABCLIA [id number] [place] [address] [place] Calcium [Mass/Vol] 9.1 mg/dL Normal 8.5-10.2 [facility] Comment on above: Order Comment: Speci men Type: BLOOD SPECIMENOrdering Facility: [facility] Address: [address] [place] [address] Performed By: #### 2 4321-2, LIPNF ####[facility] LABCLIA [id number] [place] [address] [place] Chloride [Moles/Vol] 106 mmol/L Normal 98-107 [facility] Comment on above: Order Comment: Speci men Type: BLOOD SPECIMENOrdering Facility: [facility] Address: [address] [place] [address] Performed By: #### 2 4321-2, LIPNF ####[facility] LABCLIA [id number] [place] [address] [place] CO2 [Moles/Vol] 23 mmol/L Normal 22-30 [facility] Comment on above: Order Comment: Speci men Type: BLOOD SPECIMENOrdering Facility: [facility] Address: [address] [place] [address] Performed By: #### 2 4321-2, LIPNF ####[facility] LABIA [id number] [place] [address] [place] Creatinine [Mass/Vol] 0.75 mg/dL Normal 0.58-0.96 [facility] Comment on above: Order Comment: Speci men Type: BLOOD SPECIMENOrdering Facility: [facility] Address: [address] [place] [address] Performed By: #### 2 4321-2, LIPNF ####[facility] LABIA [id number] [place] [address] [place] Creatinine and Glomerular filtration rate.predicted panel (S/P/Bld) 109 mL/min/1.73m??? Normal >=60 [facility] Comment on above: Order Comment: Speci men Type: BLOOD SPECIMENOrdering Facility: [facility] Address: [address] [place] [address] Result Comment: Michelle mated Glomerular Filtration Rate (eGFR) is calculated using the 2020 CKD-EPI creatinine equation. This equation utilizes serum creatinine, sex, and age as parameters. The creatinine assay has traceable calibration to isotope dilution-mass spectrometry. Refer to KDIGO guidelines for clinical interpretation. In patients with unstable renal function, e.g. those with acute kidney injury, the eGFR may not accurately reflect actual GFR. Performed By: #### 2 4321-2, LIPNF ####[facility] LABIA [id number] [place] [address] [place] Glucose [Mass/Vol] 61 mg/dL Low 74-99 [facility] Comment on above: Order Comment: Speci men Type: BLOOD SPECIMENOrdering Facility: [facility] Address: [address] [place] [address] Result Comment: The [place] [employer] (ADA) provides guidance for cutoff values for fasting glucose and random glucose. The ADA defines fasting as no caloric intake for at least 8 hours. Fasting plasma glucose results between 100 to 125 mg/dL indicate increased risk for diabetes (prediabetes). Fasting plasma glucose results greater than or equal to 126 mg/dL meet the criteria for diagnosis of diabetes. In the absence of unequivocal hyperglycemia, results should be confirmed by repeat testing. In a patient with classic symptoms of hyperglycemia or hyperglycemic crisis, random plasma glucose results greater than or equal to 200 mg/dL meet the criteria for diagnosis of diabetes. Reference: Standards of Medical Care in Diabetes 2016, [place] [employer]. Diabetes Care. 2016.39(Suppl 1). Performed By: #### 2 4321-2, LIPNF ####[facility] LABCLIA [id number] [place] [address] [place] Potassium [Moles/Vol] 4.1 mmol/L Normal 3.7-5.1 [facility] Comment on above: Order Comment: Speci men Type: BLOOD SPECIMENOrdering Facility: [facility] Address: [address] [place] [address] Performed By: #### 2 432-2, LIPNF ####[facility] LABCLIA [id number] [place] [address] [place] Sodium [Moles/Vol] 141 mmol/L Normal 136-144 [facility] Comment on above: Order Comment: Speci men Type: BLOOD SPECIMENOrdering Facility: [facility] Address: [address] [place] [address] Performed By: #### 2 432-2, LIPNF ####[facility] LABCLIA [id number] [place] [address] [place] Urea nitrogen [Mass/Vol] 13 mg/dL Normal 7-21 [facility] Comment on above: Order Comment: Speci men Type: BLOOD SPECIMENOrdering Facility: [facility] Address: [address] [place] [address] Performed By: #### 2 4321-2, LIPNF ####[facility] LABCLIA [id number] [place] [id number] [place] CNOVon 10-29-2024 CNOV Office Visit (FAMPWS ) -------- TIFFANIE CORTEZ ([id number]) 1990 F T Date Time Provider Department 07/16/24 11:40 AM [facility] your visit today, we recorded the following information about you: Temperature Pulse Respiration Blood pressure 97.5 degrees 88/minute 18/minute 98/60 Weight Last Period 87.5 kg 07/08/24 Mamie Baxter PA-C 07/16/2024 12:29 PM Signed Chief Complaint Patient presents with: requesting lab work HPI Tiffanie Lopez Diego is a 33 year old female who presents here today for Above Complaints.. Patient was told by Physical Therapy that she may have RA Patient had inflammatory labs in March that were negative. Ortho started patient on meloxicam and she has felt that this has help significantly She is afraid to go back to daily pain. Past medical history, appointments, medications, allergies reviewed. Previous Medical History PAST MEDICAL HISTORY Diagnosis Date Abnormal glandular Papanicolaou smear of cervix 2000 Bilateral ovarian cysts depression Gestational diabetes mellitus, class A1 03/15/2021 History of drug use meth and heroine. Denies use x 1 year 09/2020 History of hepatitis C 11/26/2020 Migraine without aura and without status migrainosus, not intractable Previous Surgical History PAST SURGICAL HISTORY Procedure Laterality Date CRYO CAUTERY CERVIX 2000 Family History FAMILY HISTORY Problem Relation Age of Onset Hypertension Mother Hypertension Father No Known Problems Brother No Known Problems Maternal Grandmother Heart Attack Maternal Grandfather No Known Problems Paternal Grandmother Heart Attack Paternal Grandfather No Known Problems Daughter Patient Allergies ALLERGIES No Known Allergies Current Medications Current Outpatient Medications on File Prior to Visit Medication Sig gabapentin (NEURONTIN) 300 mg capsule Take 1 capsule by mouth three times a day for 60 days. meloxicam (MOBIC) 15 mg tablet Take 1 tablet by mouth once daily. acetaminophen 325 mg cap Take by mouth as directed. FLUoxetine (PROZAC) 20 mg capsule Take 3 capsules by mouth once daily. silver sulfADIAZINE (SILVADENE) 1 % cream Apply to affected area once daily. (Patient not taking: Reported on 03/19/2024) Lgptixhk-Cd-Glj-Fe-FA ( VITAMIN) tab Take 1 tablet by mouth. (Patient not taking: Reported on 06/17/2024) No current facility-administered medications on file prior to visit. Social History Social History Tobacco Use Smoking status: Former Current packs/day: 0.00 Types: Cigarettes Start date: 09/28/2012 Quit date: 09/28/2020 Years since quittin.8 Smokeless tobacco: Never Tobacco comments: Pt uses nicotine vape Vaping Use Vaping status: current everyday user Substances: Nicotine (2%) Substance Use Topics Alcohol use: Not Currently Drug use: Not Currently Types: Amphetamines, Heroin Review of Symptoms REVIEW OF SYSTEMS GENERAL: No weight loss, malaise or fevers EXAM: BP 98/60 (BP Site: Left Arm, BP Position: Sitting, BP Cuff Size: Large Adult) Pulse 88 Temp 36.4 ?C (97.5 ?F) Resp 18 Wt 87.5 kg (193 lb) LMP 07/08/2024 (Exact Date) SpO2 98% BMI 29.35 kg/m? General Appearance: Well appearing, alert, in no acute distress, well-hydrated, well nourished.. Health Maintenance List Anxiety Screening Never done Hepatitis B Vaccine(1 of 3 - 19+ 3-dose series) Never done Influenza Vaccine(1) due on 03/17/2025 Covid-19 Vaccine(2023- season) due on 07/16/2025 Cervical Cancer Screening due on 09/16/2025 DTaP,Tdap,Td Vaccine(3 - Td or Tdap) due on 03/01/2033 Hepatitis C Screening Completed HIV Screening Completed HPV Vaccine Aged Out Data reviewed ASSESSMENT/PLAN: 1. Encounter for lipid screening for cardiovascular disease - ICD9: V77.91, V81.2, ICD10: Z13.220, Z13.6 (primary diagnosis) - LIPID PANEL, NONFASTING 2. Chronic pain of both hips - ICD9: 719.45, 338.29, ICD10: M25.551, M25.552, G89.29 improved - MELOXICAM 15 MG TABLET - CONSULT TO RHEUM/IMMUN DISEASE - BASIC METABOLIC PANEL 3. Hip dysplasia, acquired, right - ICD9: 736.39, ICD10: M21.851 We can get opinion from rheum Consult placed. - MELOXICAM 15 MG TABLET - CONSULT TO RHEUM/IMMUN DISEASE - BASIC METABOLIC PANEL Mamie Baxter PA-C Allergies As of Date: 07/16/2024 (No Known Allergies) Date Reviewed: 07/16/2024 Reviewed by: Katie Winn LPN - Fully Assessed Reason for Visit: requesting lab work [Other] Primary Visit Diagnosis:Hip dysplasia, acquired, 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] Other Visit Diagnoses:Chronic pain of both hips [M25.551, M25.552, G89.29] Encounter for lipid screening for cardiovascular disease [Z13.220, Z13.6] Order(s):[START ON 08/14/2024] meloxicam (MOBIC) 15 mg tabletTake 1 tablet by mouth once daily. Patient should start on August 14, 2024.Disp: 30 tabletRf (more content not included)... Normal [facility] 07-16-2024 [facility] Telephone (MARIOPWS) -------- TIFFANIE CORTEZ ([id number]) 1990 F T Date Time Provider Department 07/16/24 [facility] During your visit today, we recorded the following information about you: Katie Winn LPN 07/16/2024 12:50 PM Signed Received a fax back from Dr Littlejohn's office advising that they do not accept pt's Medicaid Insurance. Called and notified pt of same. 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 Patient should start on August 14, 2024. - FLUoxetine (PROZAC) 20 mg capsule Take 3 capsules by mouth once daily. - gabapentin (NEURONTIN) 300 mg capsule Take 1 capsule by mouth three times a day for 60 days. - silver sulfADIAZINE (SILVADENE) 1 % cream Apply to affected area once daily. - acetaminophen 325 mg cap Take by mouth as directed. - Yfpvohoq-Mn-Xsb-Fe-FA ( VITAMIN) tab Take 1 tablet by mouth. Problem List As Of Date 07/16/2024 Noted Resolved History of depression [Z86.59] 10/01/2020 History of cryosurgery of cervix complicating p*10/01/2020 Obesity in [O99.210] 10/01/2020 History of nicotine vaping [Z87.891] 10/01/2020 History of intravenous drug use in remission [Z*10/01/2020 Patient request for diagnostic testing [Z01.89] 10/01/2020 Supervision of high risk , antepartum *10/01/2020 History of hepatitis C [Z86.19] 11/26/2020 Abnormal glucose in , antepartum [O99.*11/26/2020 06/28/2021 Gestational diabetes mellitus, class A2 [O24.41*03/15/2021 History of gestational diabetes in prior pregna*06/28/2021 Vapes nicotine containing substance [Z72.0] 09/16/2022 Supervision of high risk in first tri*10/10/2022 Moderate episode of recurrent major depressive *10/24/2023 Chronic pain of both hips [M25.551, M25.552, G8*05/03/2024 Hip dysplasia, acquired, 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] 06/18/2024 Encounter Status:Closed by KATIE WINN on 07/16/24 Normal [facility] LIPID PANEL, NONFASTINGon 10 -29-2024 Cholesterol [Mass/Vol] 188 mg/dL Normal <200 [facility] Comment on above: Order Comment: Speci men Type: BLOOD SPECIMENOrdering Facility: [facility] Address: [address] [place] [address] Result Comment: <200 mg/dL, Desirable 200-239 mg/dL, Borderline high >239 mg/dL, High Performed By: #### 2 4321-2, LIPNF ####[facility] LABCLIA [id number] [place] [address] [place] HDL CHOLESTEROL, NF 54 mg/dL Normal >39 [facility] Comment on above: Order Comment: Speci men Type: BLOOD SPECIMENOrdering Facility: [facility] Address: [address] [place] [address] Result Comment: 40-5 9 mg/dL, Acceptable >59 mg/dL, High: Negative risk factor for coronary heart disease <40 mg/dL, Low: Positive risk factor for coronary heart disease Performed By: #### 2 4321-2, LIPNF ####[facility] LABCLIA [id number] [address] [place] LDL CHOLESTEROL, NF 105 mg/dL High <100 [facility] Comment on above: Order Comment: Speci men Type: BLOOD SPECIMENOrdering Facility: [facility] Address: [address] [place] [address] Result Comment: <100 mg/dL, Optimal 100-129 mg/dL, Near optimal/above optimal 130-159 mg/dL, Borderline high 160-189 mg/dL, High >189 mg/dL, Very high Secondary prevention optimal LDL Cholesterol levels are recommended to be < 70 mg/dL Performed By: #### 2 4321-2, LIPNF ####[facility] LABCLIA [id number] [place] [address] [place] LDL/HDL RATIO, NF 1.94 mg/dL Normal <2.54 [facility] Comment on above: Order Comment: Speci men Type: BLOOD SPECIMENOrdering Facility: [facility] Address: [address] [place] [address] Result Comment: Rodger morales: 1. National Cholesterol Education Program ATP III Guideline At-A-Glance Quick Desk Reference: National Heart, Lung, and Blood Gantt. National Institutes of Health. 2001: NIH Publication No. 01-3305. 2. An International Atherosclerosis Society position paper: global recommendations for the management of dyslipidemia: executive summary, Atherosclerosis. 2014: 232(2):410-413. Performed By: #### 2 4321-2, LIPNF ####[facility] LABCLIA [id number] [place] [address] [place] NON HDL CHOL, NF 134 mg/dL High <130 [facility] Comment on above: Order Comment: Speci men Type: BLOOD SPECIMENOrdering Facility: [facility] Address: [address] [place] [address] Result Comment: <130 mg/dL, Optimal 130-159 mg/dL, Near optimal/above optimal 160-189 mg/dL, Borderline high 190-219 mg/dL, High >219 mg/dL, Very high Secondary prevention optimal non HDL Cholesterol levels are recommended to be <100 mg/dL Performed By: #### 2 4321-2, LIPNF ####[facility] LABCLIA [id number] [place] [address] [place] T CHOL/HDL RATIO NF 3.48 mg/dL Normal <5.10 [facility] Comment on above: Order Comment: Speci men Type: BLOOD SPECIMENOrdering Facility: [facility] Address: [address] [place] [address] Performed By: #### 2 4321-2, LIPNF ####[facility] LABCLIA [id number] [place] [address] [place] TRIGLYCERIDES, NF 144 mg/dL Normal <150 [facility] Comment on above: Order Comment: Speci men Type: BLOOD SPECIMENOrdering Facility: [facility] Address: [address] [place] [address] Result Comment: <150 mg/dL, Normal 150-199 mg/dL, Borderline high 200-499 mg/dL, High >499 mg/dL, Very high Performed By: #### 2 4321-2, LIPNF ####[facility] LABCLIA [id number] [address] [place] VLDL CHOLESTEROL, NF 29 mg/dL Normal <30 [facility] Comment on above: Order Comment: Speci men Type: BLOOD SPECIMENOrdering Facility: [facility] Address: [address] [place] [address] Performed By: #### 2 4321-2, LIPNF ####[facility] LABCLIA [id number] [address] OF [facility] Aguilar 07-01-2024 CNPN Telephone (PSWSTR) -------- TIFFANIE CORTEZ ([id number]) 1990 F T Date Time Provider Department 07/01/24 KALYANI RIOS PSWSTR During your visit today, we recorded the following information about you: Jia Delaney LPN 07/01/2024 4:10 PM Signed Returned call to patient notifying of medication dose change and being sent to pharmacy. 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 Jia Delaney LPN Allergies As of Date: 07/01/2024 (No Known Allergies) Date Reviewed: 06/17/2024 Reviewed by: Lynda Lyons MA - Fully Assessed Reason for Visit: Medication Problem [65] Prescriptions as of 07/01/2024 - FLUoxetine (PROZAC) 20 mg capsule Take 3 capsules by mouth once daily. - gabapentin (NEURONTIN) 300 mg capsule Take 1 capsule by mouth three times a day for 60 days. - meloxicam (MOBIC) 15 mg tablet Take 1 tablet by mouth once daily. - silver sulfADIAZINE (SILVADENE) 1 % cream Apply to affected area once daily. - acetaminophen 325 mg cap Take by mouth as directed. - Bhuocywh-Zg-Ydi-Fe-FA ( VITAMIN) tab Take 1 tablet by mouth. Problem List As Of Date 07/01/2024 Noted Resolved History of depression [Z86.59] 10/01/2020 History of cryosurgery of cervix complicating p*10/01/2020 Obesity in [O99.210] 10/01/2020 History of nicotine vaping [Z87.891] 10/01/2020 History of intravenous drug use in remission [Z*10/01/2020 Patient request for diagnostic testing [Z01.89] 10/01/2020 Supervision of high risk , antepartum *10/01/2020 History of hepatitis C [Z86.19] 11/26/2020 Abnormal glucose in , antepartum [O99.*11/26/2020 06/28/2021 Gestational diabetes mellitus, class A2 [O24.41*03/15/2021 History of gestational diabetes in prior pregna*06/28/2021 Vapes nicotine containing substance [Z72.0] 09/16/2022 Supervision of high risk in first tri*10/10/2022 Moderate episode of recurrent major depressive *10/24/2023 Chronic pain of both hips [M25.551, M25.552, G8*05/03/2024 Hip dysplasia, acquired, 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] 06/18/2024 Encounter Status:Closed by JIA DELANEY on 07/01/24 Normal [facility] CNTHERAPYon 06-25-2024 CNTHERAPY OT/PT/Speech Visit (PTWS) -------- TIFFANIE CORTEZ ([id number]) 1990 F CHT Date Time Provider Department 06/25/24 1:15 PM DYANA COLLAZO PTWS Date Time Provider Department Center 06/25/2024 1:15 PM [id number], SEAN PTWS Luis Angel Ham Reason for Visit: PT Discharge [752] Primary Visit Diagnosis:Chronic pain of both hips [M25.551, M25.552, G89.29] Allergies As of Date: 06/25/2024 (No Known Allergies) Date Reviewed: 06/17/2024 Reviewed by: Lynda Lyons MA - Fully Assessed Prescriptions as of 06/26/2024 - meloxicam (MOBIC) 15 mg tablet Take 1 tablet by mouth once daily. - FLUoxetine (PROZAC) 40 mg capsule Take 2 capsules by mouth once daily. - gabapentin (NEURONTIN) 300 mg capsule Take 1 capsule by mouth three times a day for 90 days. - silver sulfADIAZINE (SILVADENE) 1 % cream Apply to affected area once daily. - acetaminophen 325 mg cap Take by mouth as directed. - Omwrrjyl-Qi-Mhw-Fe-FA ( VITAMIN) tab Take 1 tablet by mouth. Fish Cutter: Addendum Therapy (PT/OT/Speech/Resp) ID: [id number] 06/25/2024 1:39 PM Author: DYANA COLLAZO Signed by DYANA COLLAZO PT on 06/25/2024 at 1:39 PM * * * This document replaces document [id number] * * * Document text: Program_ID:[id number] Access Code: [email or web address] URL: [email or web address] [email or web address]/ Date: 06-25-2024 Prepared By: Dyana Collazo Program Notes Exercises - Sidelying Hip Abduction - 1 x daily - 7 x weekly - 3 sets - 10 reps - Sidelying Bent Knee Hip Flexion - 1 x daily - 7 x weekly - 3 sets - 10 reps - Sidelying Hip Circles - 1 x daily - 7 x weekly - 3 sets - 10 reps - Clam with Resistance - 1 x daily - 7 x weekly - 3 sets - 10 reps - Side Stepping with Resistance at Ankles - 1 x daily - 7 x weekly - 3 sets - 10 reps - Forward Monster Walks - 1 x daily - 7 x weekly - 3 sets - 10 reps - Backward Monster Walks - 1 x daily - 7 x weekly - 3 sets - 10 reps - Supine Bridge - 1 x daily - 7 x weekly - 3 sets - 10 reps - Marching Bridge - 1 x daily - 7 x weekly - 3 sets - 10 reps - Single Leg Bridge - 1 x daily - 7 x weekly - 3 sets - 10 reps - Supine Hip Extension on Bench - 1 x daily - 7 x weekly - 3 sets - 10 reps - Supine Hip Extension with March on Bench - 1 x daily - 7 x weekly - 3 sets - 10 reps - Supine Posterior Pelvic Tilt - 1 x daily - 7 x weekly - 3 sets - 10 reps - Supine 90/90 Alternating Heel Touches with Posterior Pelvic Tilt - 1 x daily - 7 x weekly - 3 sets - 10 reps - Bird Dog - 1 x daily - 7 x weekly - 3 sets - 10 reps Normal [facility] THERAPY NTon 06-25-2024 THERAPY NT HNO ID: [id number] Author: DYANA COLLAZO PT Service: ? Author Type: Physical Therapist Type: Therapy (PT/OT/Speech/Resp) Filed: 06/25/2024 13:39 Note Text: Program_ID:[id number] Access Code: [email or web address] URL: [email or web address]. [employer]/ Date: 06-25-2024 Prepared By: Dyana Collazo Program Notes Exercises - Sidelying Hip Abduction - 1 x daily - 7 x weekly - 3 sets - 10 reps - Sidelying Bent Knee Hip Flexion - 1 x daily - 7 x weekly - 3 sets - 10 reps - Sidelying Hip Circles - 1 x daily - 7 x weekly - 3 sets - 10 reps - Clam with Resistance - 1 x daily - 7 x weekly - 3 sets - 10 reps - Side Stepping with Resistance at Ankles - 1 x daily - 7 x weekly - 3 sets - 10 reps - Forward Monster Walks - 1 x daily - 7 x weekly - 3 sets - 10 reps - Backward Monster Walks - 1 x daily - 7 x weekly - 3 sets - 10 reps - Supine Bridge - 1 x daily - 7 x weekly - 3 sets - 10 reps - Marching Bridge - 1 x daily - 7 x weekly - 3 sets - 10 reps - Single Leg Bridge - 1 x daily - 7 x weekly - 3 sets - 10 reps - Supine Hip Extension on Bench - 1 x daily - 7 x weekly - 3 sets - 10 reps - Supine Hip Extension with March on Bench - 1 x daily - 7 x weekly - 3 sets - 10 reps - Supine Posterior Pelvic Tilt - 1 x daily - 7 x weekly - 3 sets - 10 reps - Supine 90/90 Alternating Heel Touches with Posterior Pelvic Tilt - 1 x daily - 7 x weekly - 3 sets - 10 reps - Bird Dog - 1 x daily - 7 x weekly - 3 sets - 10 reps Normal [facility] CNOVon 06-17-2024 CNOV Office Visit (DEANNE ) -------- TIFFANIE CORTEZ ([id number]) 1990 F [facility] Date Time Provider Department 06/17/24 9:15 AM AUGUST CANALES During your visit today, we recorded the following information about you: August Canales MD 06/17/2024 2:49 PM Signed August Canales MD Department of Orthopaedics Orthopaedics [address] [facility] [address] Dept: [phone] Dept June 17, 2024 CHIEF COMPLAINT: New and Pain of the Left Hip and New and Pain of the Right Hip HPI Patient here today for bilateral hip pain x 5 years. The right hip is the worst. Denies any injury. She had to cut her [employer] job down to 1 day per week d/t the amount of pain. 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 X-ray completed on 04/30/2024. ASSESSMENT: M25.551, M25.552, G89.29 Chronic pain of both hips M21.851 Hip dysplasia, acquired, right PLAN: She does feel he has a bit of early arthritic changes in both hips secondary to dysplasia. I outlined multimodality treatment for this and Leeanneona try an anti-inflammatory that she can use on an intermittent basis. I believe her hip strengthening and lumbar therapy will be quite important for her moving forward. FOLLOW UP INSTRUCTIONS: Possible intra-articular joint injection if she feels appropriate. OBJECTIVE: Ms. Tiffanie Cortez is a pleasant 33 year old in no apparent distress. Gen:LMP 03/12/2024 nl development, non obese, no deformities ENT: Normocephalic, normal hearing, moist mucosa CV: Pulses:DP/PT= 2+ and symmetric, capillary refill < 2 secs, no peripheral edema/varicosities Skin: no rash, bruising or lesions. Good turgor. Psych: cooperative and appropriate, alert and oriented x 3, good mood and affect. Musculoskeletal: Patient walks without antalgia. Some minor limitations with hip range of motion certainly at terminal end range of flexion and internal rotation with some discomfort. IMAGING: Impression IMPRESSION: DEGENERATIVE JOINT DISEASE OF THE HIP BILATERALLY. ACETABULAR DYSPLASIA ON THE RIGHT. Freight Checker: PSCB Transcribe Date/Time: May 04 2024 8:57P Dictated by : FLOWER NORIEGA MD This examination was interpreted and the report reviewed and electronically signed by: FLOWER NORIEGA MD on May 04 2024 8:59PM EST Results-Findings * * *Final Report* * * DATE OF EXAM: Apr 30 2024 12:53PM WRX [id number] - XR HIP TIFFANIE 5V PEL+ AP/LAT EA HIP / PROCEDURE REASON: multiple diagnoses * * * * Physician Interpretation * * * * HISTORY: 33-YEAR-OLD FEMALE WITH Chronic pain of both hips Chronic pain of both hips Chronic pain of both hips . PT STATES BILAT HIP PAIN WITHOUT INJURY TECHNIQUE: XR HIP TIFFANIE 5V PEL+ AP/LAT EA HIP Laterality: BILATERAL Number of different views (projections): 3 COMPARISON: None RESULT: Bilateral hip: Acetabular dysplasia of the right hip. Hip joint spaces are maintained bilaterally. Collar osteophytes bilaterally. Facet degenerative changes of the visualized lumbar spine Supporting Subjective Information Below: Past Medical History: PAST MEDICAL HISTORY Diagnosis Date Abnormal glandular Papanicolaou smear of cervix 2000 Bilateral ovarian cysts depression Gestational diabetes mellitus, class A1 03/15/2021 History of drug use meth and heroine. Denies use x 1 year 09/2020 History of hepatitis C 11/26/2020 Migraine without aura and without status migrainosus, not intractable Past Surgical History: PAST SURGICAL HISTORY Procedure Laterality Date CRYO CAUTERY CERVIX 2000 Family History: FAMILY HISTORY Problem Relation Age of Onset Hypertension Mother Hypertension Father No Known Problems Brother No Known Problems Maternal Grandmother Heart Attack Maternal Grandfather No Known Problems Paternal Grandmother Heart Attack Paternal Grandfather No Known Problems Daughter Social History: Social History Tobacco Use Smoking status: Former Current packs/day: 0.00 Types: Cigarettes Start date: 09/28/2012 Quit date: 09/28/2020 Years since quittin.7 Smokeless tobacco: Never Tobacco comments: Pt uses nicotine vape Vaping Use Vaping status: current everyday user Substances: Nicotine (2%) Substance Use Topics Alcohol use: Not Currently Drug use: Not Currently Types: Amphetamines, Heroin Medications: Current Outpatient Medications Medication Sig FLUoxetine (PROZAC) 40 mg capsule Take 2 capsules by mouth once daily. gabapentin (NEURONTIN) 300 mg capsule Take 1 capsule by mouth three times a day for 90 days. acetaminophen 325 mg cap Take by mouth as directed. silver sulfADIAZINE (SILVADENE) 1 % cream Apply to affected area once daily. (Patient not taking: Reported on 03/19/2024) Esgwczny-Cn-Img-Fe-FA ( VITAMIN) tab Take 1 tablet by mouth. (Patient not taking: Reported on 06/17/2024) (more content not included)... Normal [facility] CNTHERAPYon 05-23-2024 CNTHERAPY OT/PT/Speech Visit (PTWS) -------- TIFFANIE CORTEZ ([id number]) 1990 F CHT Date Time Provider Department 05/23/24 1:15 PM DYANA COLLAZO PTWS Date Time Provider Department Center 05/23/2024 1:15 PM [id number], SEAN PTJOANIE Luis Angel Bryanna Reason for Visit: Physical Therapy [503] Primary Visit Diagnosis:Chronic pain of both hips [M25.551, M25.552, G89.29] Allergies As of Date: 05/23/2024 (No Known Allergies) Date Reviewed: 03/19/2024 Reviewed by: Katie Winn LPN - Fully Assessed Prescriptions as of 05/23/2024 - gabapentin (NEURONTIN) 300 mg capsule Take 1 capsule by mouth three times a day as needed (anxiety) for up to 60 days. - FLUoxetine (PROZAC) 40 mg capsule Take 2 capsules by mouth once daily. Take with 20 mg dose. - buPROPion (WELLBUTRIN) 100 mg tablet Take 1 tablet by mouth two times a day. - silver sulfADIAZINE (SILVADENE) 1 % cream Apply to affected area once daily. - acetaminophen 325 mg cap Take by mouth as directed. - Ilnwnhcr-Pr-Pfa-Fe-FA ( VITAMIN) tab Take 1 tablet by mouth. Fish Cutter: Addendum Therapy (PT/OT/Speech/Resp) ID: [id number] 05/23/2024 1:49 PM Author: DYANA COLLAZO Signed by DYANA COLLAZO PT on 05/23/2024 at 1:49 PM * * * This document replaces document [id number] * * * Document text: Program_ID:[id number] Access Code: [email or web address] URL: [email or web address]. [employer]/ Date: 05-23-2024 Prepared By: Dyana Collazo Program Notes Exercises - Sidelying Hip Abduction - 1 x daily - 7 x weekly - 3 sets - 10 reps - Clamshell - 1 x daily - 7 x weekly - 3 sets - 10 reps - Supine Bridge - 1 x daily - 7 x weekly - 3 sets - 10 reps - Supine Double Knee to Chest - 1 x daily - 7 x weekly - 3 sets - 3 reps - Supine Posterior Pelvic Tilt - 1 x daily - 7 x weekly - 3 sets - 10 reps Normal [facility] THERAPY NTon 05-23-2024 THERAPY NT HNO ID: [id number] Author: DYANA COLLAZO PT Service: ? Author Type: Physical Therapist Type: Therapy (PT/OT/Speech/Resp) Filed: 05/23/2024 13:49 Note Text: Program_ID:[id number] Access Code: [email or web address] URL: [email or web address] [employer]/ Date: 05-23-2024 Prepared By: Dyana Collazo Program Notes Exercises - Sidelying Hip Abduction - 1 x daily - 7 x weekly - 3 sets - 10 reps - Clamshell - 1 x daily - 7 x weekly - 3 sets - 10 reps - Supine Bridge - 1 x daily - 7 x weekly - 3 sets - 10 reps - Supine Double Knee to Chest - 1 x daily - 7 x weekly - 3 sets - 3 reps - Supine Posterior Pelvic Tilt - 1 x daily - 7 x weekly - 3 sets - 10 reps Normal [facility] CNPNon 05-06-2024 CNPN Telephone (FAMPWS) -------- [facility][id number]) 1990 [facility] Date Time Provider Department 05/06/24 MAMIE BAXTER During your visit today, we recorded the following information about you: Mamie Baxter PA-C 05/06/2024 9:14 AM Signed Xray shows hip dysplasia on right and bilateral arthritic changes. Continue with Physical Therapy. Will also set up with ortho. Katie Winn LPN 05/06/2024 9:34 AM Signed Patient notified of results and provider's instructions. Patient verbalizes understanding. Pt was assisted in transfer to schedule with ortho. Katie Winn LPN Allergies As of Date: 05/06/2024 (No Known Allergies) Date Reviewed: 03/19/2024 Reviewed by: Katie Winn LPN - Fully Assessed Reason for Visit: Results [95] Primary Visit Diagnosis:Chronic pain of both hips [M25.551, M25.552, G89.29] Other Visit Diagnosis:Hip dysplasia, acquired, 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] Order(s):CONSULT TO ORTHOPAEDICS [9026] Order #: [id number]: 1 FUTURE Prescriptions as of 05/06/2024 - gabapentin (NEURONTIN) 300 mg capsule Take 1 capsule by mouth three times a day as needed (anxiety) for up to 60 days. - FLUoxetine (PROZAC) 40 mg capsule Take 2 capsules by mouth once daily. Take with 20 mg dose. - buPROPion (WELLBUTRIN) 100 mg tablet Take 1 tablet by mouth two times a day. - silver sulfADIAZINE (SILVADENE) 1 % cream Apply to affected area once daily. - acetaminophen 325 mg cap Take by mouth as directed. - Ekbozbky-Eh-Gee-Fe-FA ( VITAMIN) tab Take 1 tablet by mouth. Problem List As Of Date 05/06/2024 Noted Resolved History of depression [Z86.59] 10/01/2020 History of cryosurgery of cervix complicating p*10/01/2020 Obesity in [O99.210] 10/01/2020 History of nicotine vaping [Z87.891] 10/01/2020 History of intravenous drug use in remission [Z*10/01/2020 Patient request for diagnostic testing [Z01.89] 10/01/2020 Supervision of high risk , antepartum *10/01/2020 History of hepatitis C [Z86.19] 11/26/2020 Abnormal glucose in , antepartum [O99.*11/26/2020 06/28/2021 Gestational diabetes mellitus, class A2 [O24.41*03/15/2021 History of gestational diabetes in prior pregna*06/28/2021 Vapes nicotine containing substance [Z72.0] 09/16/2022 Supervision of high risk in first tri*10/10/2022 Moderate episode of recurrent major depressive *10/24/2023 Chronic pain of both hips [M25.551, M25.552, G8*05/03/2024 Encounter Status:Closed by KATIE WINN on 05/06/24 Normal [facility] [id number] 05-03-2024 [id number] HNO ID: [id number] Author: DYANA COLLAZO PT Service: ? Author Type: Physical Therapist Type: [id number] Filed: 05/03/2024 13:03 Note Text: [facility] Physical Therapy Plan of Care Certification Patient Name: Tiffanie Cortez : 1990 [facility] #: [id number] Date: 05/03/2024 To: Mamie Baxter PA-C From Therapist: Dyana Collazo PT RE: Patient Certification/ Recertification Your review, approval and electronic signature are required in order to comply with Payor: [employer] / Plan: [employer] [place] / Product Type: Medicaid / regulations. The identified Physical Therapy PLAN OF CARE for the patient is as follows: M25.551, M25.552, G89.29 Chronic pain of both hips (primary encounter diagnosis) PLAN OF CARE: Assessment: Tiffanie Cortez presents with chief complaint of chronic hip pain bilaterally that interferes with rising from a chair, standing, walking, stair negotiation, bending, heavy exertion, squatting, working, sleeping . She presents with impairments in ADL's, joint mobility, overall function, range of motion, strength, symptom management, and tissue tenderness. PROMIS? (Patient-Reported Outcomes Measurement Information System) scores were reviewed and identified as a rehabilitation concern. Prognosis for therapy is Fair due to: clinical presentation, chronic nature of impairments, limited tolerance to activity, occupational demands . She will benefit from skilled therapy services to meet the goals established for this plan of care as noted below. Goals for Episode of Care: created on 05/03/24 through 07/03/24 [place] in home exercise program. Patient will decrease pain rating by 2 points to meet minimal clinical important difference for numeric pain rating scale. Patient will increase passive ROM of B hips to minimal limitations to allow pt to to improve performance of ADLs. Patient will demonstrate increase in B hip strength to 4+/5 during manual muscle testing in order to improve function for home management tasks, leisure / recreation skills, and work tasks. Perform standing for work with decreased report of symptoms/pain in 6-8 weeks. 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 Planned Interventions, Frequency, and Duration: Current Frequency: 1x every other week Duration: 8 weeks Total Number of Visits Planned: 4 Planned Treatment Interventions: Therapeutic exercise (22296), Neuromuscular re-education (83777), Manual therapy (10415), Therapeutic activities (69089), Self-mcc management (67858), Patient/Family/Caregiver Education, Body Mechanics Training PLAN FOR NEXT VISIT: May be needling candidate Patient demonstrates good understanding of plan of care and treatment. The above goals and plan of care were discussed and agreed upon by patient/family. For further details regarding this patient refer to the Physical Therapy electronically documented visit dated 05/03/2024. Provider Attestation I have reviewed the treatment plan for Tiffanie Cortez, [facility]# [id number] for the period of 05/03/24 -- 07/03/24, established on 05/03/2024. Signature certifies the need for therapy services. Normal [facility] CNTHERAPYon 05-03-2024 CNTHERAPY OT/PT/Speech Visit (PTWS) -------- TIFFANIE CORTEZ ([id number]) 1990 F CHT Date Time Provider Department 05/03/24 9:45 AM DYANA COLLAZO PTWS Date Time Provider Department [place] 05/03/2024 9:45 AM [id number], SEAN PTWS Luis Angel Ham Reason for Visit: PT Eval [207] Primary Visit Diagnosis:Chronic pain of both hips [M25.551, M25.552, G89.29] Allergies As of Date: 05/03/2024 (No Known Allergies) Date Reviewed: 03/19/2024 Reviewed by: Katie Winn LPN - Fully Assessed Prescriptions as of 05/03/2024 - gabapentin (NEURONTIN) 300 mg capsule Take 1 capsule by mouth three times a day as needed (anxiety) for up to 60 days. - FLUoxetine (PROZAC) 40 mg capsule Take 2 capsules by mouth once daily. Take with 20 mg dose. - buPROPion (WELLBUTRIN) 100 mg tablet Take 1 tablet by mouth two times a day. - silver sulfADIAZINE (SILVADENE) 1 % cream Apply to affected area once daily. - acetaminophen 325 mg cap Take by mouth as directed. - [id number] ( VITAMIN) tab Take 1 tablet by mouth. -------- Fish Cutter: Therapy (PT/OT/Speech/Resp) ID: [id number] 05/03/2024 10:17 AM Author: DYANA COLLAZO Signed by DYANA COLLAZO PT on 05/03/2024 at 10:17 AM Document text: Program_ID:[id number] Access Code: [email or web address] URL: [email or web address]/ Date: 05-03-2024 Prepared By: Dyana Collazo Program Notes Exercises - Sidelying Hip Abduction - 1 x daily - 7 x weekly - 3 sets - 10 reps - Clamshell - 1 x daily - 7 x weekly - 3 sets - 10 reps - Supine Bridge - 1 x daily - 7 x weekly - 3 sets - 10 reps Normal [facility] THERAPY NTon 05-03-2024 THERAPY NT HNO ID: [id number] Author: DYANA COLLAZO PT Service: ? Author Type: Physical Therapist Type: Therapy (PT/OT/Speech/Resp) Filed: 05/03/2024 10:17 Note Text: Program_ID:[id number] Access Code: [email or web address] URL: [email or web address]/ Date: 05-03-2024 Prepared By: Dyana Collazo Program Notes Exercises - Sidelying Hip Abduction - 1 x daily - 7 x weekly - 3 sets - 10 reps - Clamshell - 1 x daily - 7 x weekly - 3 sets - 10 reps - Supine Bridge - 1 x daily - 7 x weekly - 3 sets - 10 reps Normal [facility] XR HIP TIFFANIE 5V PEL+ AP/LAT EA HIPon 04-30-2024 XR HIP TIFFANIE 5V PEL+ AP/LAT EA HIP * * *Final Report* * * DATE OF EXAM: Apr 30 2024 12:53PM [id number] - XR HIP TIFFANIE 5V PEL+ AP/LAT EA HIP / PROCEDURE REASON: multiple diagnoses * * * * Physician Interpretation * * * * HISTORY: 33-YEAR-OLD FEMALE WITH Chronic pain of both hips Chronic pain of both hips Chronic pain of both hips . PT STATES BILAT HIP PAIN WITHOUT INJURY TECHNIQUE: XR HIP TIFFANIE 5V PEL+ AP/LAT EA HIP Laterality: BILATERAL Number of different views (projections): 3 COMPARISON: None RESULT: Bilateral hip: Acetabular dysplasia of the right hip. Hip joint spaces are maintained bilaterally. Collar osteophytes bilaterally. 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 ACETABULAR DYSPLASIA ON THE RIGHT. Freight Checker: MYRA Transcribe Date/Time: May 04 2024 8:57P Dictated by : FLOWER NORIEGA MD This examination was interpreted and the report reviewed and electronically signed by: FLOWER NORIEGA MD on May 04 2024 8:59PM EST [id number] Normal [facility] ESR Westergren method (Bld) [Velocity]on 03-19-2024 ESR (Bld) [Velocity] 8 mm/h [facility] Interpretation and review of laboratory results Normal [facility] BACTERIAL VAGINOSIS NAATon 1 Lactobacillus crispatus+gasseri+amparo senii + Gardnerella vaginalis + Atopobium vaginae rRNA CHANI+probe Ql (Vag fld) Negative Negative for bacterial vaginosis [facility] BERENICE/TRICHOMONAS NAATon 1 C. glabrata RNA CHANI+probe Ql (Vag fld) Negative Negative for Berenice glabrata [facility] Berenice sp DNA CHANI+probe Ql (Vag fld) Negative Negative for Berenice species [facility] T. vaginalis DNA CHANI+probe Ql (Unsp spec) Negative Negative for Trichomonas vaginalis by amplification [facility] UA DIP, URINE (POC)on 2022 BILIRUBIN UA (POCT) Negative Negative [facility] CLARITY UA (POCT) Clear [facility] COLOR UA (POCT) Yellow [facility] GLUCOSE UA (POCT) Negative Negative mg/dL [facility] Hemoglobin Ql (U) Negative Negative [facility] KETONE UA (POCT) Negative Negative mg/dL [facility] LEUKOCYTES UA (POCT) Trace Abnormal Negative [facility] NITRITE UA (POCT) Negative Negative [facility] PH UA (POCT) 7.0 4.5 - 8.0 [facility] Protein Ql (U) Negative Negative mg/dL [facility] SPECIFIC GRAVITY UA (POCT) 1.025 1.005 - 1.030 [facility] UROBILINOGEN UA (POCT) 0.2 E.U./dL Normal E.U./dL [facility] Glucose Glucometer (BldC) [M ass/Vol]Ordered By: Tramaine Urias on 05-06-2023 Glucose [Mass/Vol] 90 mg/dL 74-106 [facility] Comment on above: MANAGEMENT OF PATIEN T CARE PER NURSING PROTOCOL Absolute lymphocyte countOrd ered By: Rukhsana Mckinnon on 05-04-2023 Lymphocytes Auto (Unsp spec) [#/Vol] 2.13 10*3/uL 0.83-4.51 [facility] BIOPHYSICAL PROFILE US WHIon 05-04-2023 [facility] Basophil percentageOrdered B y: Rukhsana Mckinnon on 05-04-2023 Basophils/100 WBC (Bld) 0.4 % 0-1 [facility] Eosinophils/100 WBC (Bld) 1.3 % 0-5 [facility] Neutrophils (Bld) [#/Vol] 8.0 10*3/uL 2.0-7.7 [facility] Neutrophils/100 WBC (Bld) 71.9 % 47-70 [facility] WBC (Bld) [#/Vol] 11.1 10*3/uL 4.4-11.0 [facility] Blood erythrocytes count (nu mber/volume)Ordered By: Rukhsana Mckinnon on 05-04-2023 RBC (Bld) [#/Vol] 3.63 10*6/uL 4.2-5.4 [facility] Blood hemoglobin measurement (mass/volume)Ordered By: Rukhsana Mckinnon on 05-04-2023 Hemoglobin (Bld) [Mass/Vol] 12.1 g/dL 12.0-15.0 [facility] Blood lymphocytes/100 leukoc ytesOrdered By: Rukhsana Mckinnon on 05-04-2023 Lymphocytes/100 WBC (Bld) 19.3 % 19-41 [facility] Blood monocytes/100 leukocyt esOrdered By: Rukhsana Mckinnon on 05-04-2023 Monocytes/100 WBC (Bld) 6.3 % 0-10 [facility] Blood platelet mean volumeOr dered By: Rukhsana Mckinnon on 05-04-2023 Platelet mean volume (Bld) [Entitic vol] 11.1 fL 6.2-12.0 [facility] Determination of erythrocyte mean corpuscular volume (MCV)Ordered By: Rukhsana Mckinnon on 05-04-2023 MCV (RBC) [Entitic vol] 101.4 fL 81-99 [facility] Hematocrit Auto (Bld) [Volum e fraction]Ordered By: Rukhsana Mckinnon on 05-04-2023 Hematocrit (Bld) [Volume fraction] 36.8 % 37-47 [facility] Laboratory - Drug toxicology Ordered By: Rukhsana Mckinnon on 05-04-2023 Benzodiazepines Ql (U) Negative < 200 ng/mL [facility] Cannabinoids Screen Ql (U) Negative < 50 ng/mL [facility] Cocaine Ql (U) Negative < 300 ng/mL [facility] Opiates Ql (U) Negative < 300 ng/mL [facility] Laboratory - Hematology and Cell countsOrdered By: Rukhsana Mckinnon on 05-04-2023 Erythrocyte distribution width (RBC) [Entitic vol] 48.2 fL 35.1-43.9 [facility] Erythrocyte distribution width (RBC) [Ratio] 13.0 % 11.6-14.6 [facility] Immature granulocytes/100 WBC (Bld) 0.800 % 0.0-0.9 [facility] Comment on above: IG% - Immature Granu locytes (promyelocytes, myelocytes and metamyelocytes) > 1% indicates that a LEFT SHIFT is Present. MCH (RBC) [Entitic mass] 33.3 pg 27.0-32.0 [facility] Nucleated RBC/100 WBC (Bld) [Ratio] 0 % 0-5 [facility] MCHC Auto (RBC) [Mass/Vol]Or dered By: Rukhsana Mckinnon on 05-04-2023 MCHC (RBC) [Mass/Vol] 32.9 g/dL 32-36 [facility] No Panel InformationOrdered By: Rukhsana Mckinnon on 05-04-2023 MDMA (Ecstasy) Screen Negative < 500 ng/mL [facility] Urine Barbiturates Screen Negative < 200 ng/mL [facility] Urine Drug Screen Comment [facility] Comment on above: CONFIRMATORY TESTING FOR ALL POSITIVE URINE DRUG SCREENRESULTS WILL ONLY BE SENT OUT UPON PHYSICIAN ORDER. VISTA Urine Drug Screen methods provide only preliminaryanalytical test results. A more specific alternate chemicalmethod must be used in order to obtain a confirmedanalytical result. Gas chromatography/mass spectrometery(GC/MS) is the preferred confirmatory method. Clinicalconsideration and professional judgement should be appliedto any drug of abuse test result, particularly whenpreliminary positive results are used. URINE TCA TESTING MUST BE ORDERED SEPARATELY. USE TESTMNEMONIC: [facility] Urine Methadone Screen Negative < 300 ng/mL [facility] Platelets bldOrdered By: Oli Mckinnon on 05-04-2023 Platelets (Bld) [#/Vol] 214 10*3/uL 150-450 [facility] Serum Treponema species anti body detectionOrdered By: Rukhsana Mckinnon on 05-04-2023 Treponema sp Ab Ql (S) Non-Reactive [facility] URINE OB DIP B/Oon 3 Glucose Ql (U) Negative Neg mg/dL [facility] Protein.monoclonal (U) [Mass/Vol] Negative Neg mg/dL [facility] Urine amphetamine measuremen t (moles/volume)Ordered By: Rukhsana Mckinnon on 05-04-2023 Amphetamine (U) [Moles/Vol] Negative <1000 ng/mL [facility] Urine phencyclidine (PCP) de tectionOrdered By: Rukhsana Mckinnon on 05-04-2023 Phencyclidine Ql (U) Negative < 25 ng/mL [facility] URINE OB DIP B/Oon 3 Glucose Ql (U) Negative Neg mg/dL [facility] Protein.monoclonal (U) [Mass/Vol] Negative Neg mg/dL [facility] URINE OB DIP B/Oon 3 Glucose Ql (U) Negative Neg mg/dL [facility] Protein.monoclonal (U) [Mass/Vol] Negative Neg mg/dL [facility] URINE OB DIP B/Oon 3 Glucose Ql (U) Negative Neg mg/dL [facility] Protein.monoclonal (U) [Mass/Vol] Negative Neg mg/dL [facility] URINE OB DIP B/Oon 3 Glucose Ql (U) Negative Neg mg/dL [facility] Protein.monoclonal (U) [Mass/Vol] trace Neg mg/dL [facility] Basophil percentageOrdered B y: Kervin Ovalle on 04-16-2023 Basophil percentage 0-5 SEEN /hpf 0-5 [facility] Bilirubin Test strip Ql (U)O rdered By: Kervin Ovalle on 04-16-2023 Bilirubin Ql (U) Negative Negative [facility] Glucose Glucometer (BldC) [M ass/Vol]Ordered By: Kervin Ovalle on 04-16-2023 Glucose [Mass/Vol] 142 mg/dL 74-106 [facility] Comment on above: MANAGEMENT OF PATIEN T CARE PER NURSING PROTOCOL Ketones Test strip Ql (U)Ord ered By: Kervin Ovalle on 04-16-2023 Ketones Ql (U) 50 mg/dl Negative [facility] Mucus LM Ql (Urine sed)Order ed By: Kervin Ovalle on 04-16-2023 Mucus Ql (Urine sed) 0 SEEN /hpf [facility] Nitrite Test strip Ql (U)Ord ered By: Kervin Ovalle on 04-16-2023 Nitrite Ql (U) Negative Negative [facility] No Panel InformationOrdered By: Kervin Ovalle on 04-16-2023 Vaginal Amniotic Fluid Detection Negative Negative [facility] Comment on above: Amniotic fluid not p resent indicates No Rupture of FetalMembranes at time of specimen collection. Protein Test strip Ql (U)Ord ered By: Kervin Ovalle on 04-16-2023 Protein Ql (U) Negative Negative [facility] Squamous epithelial cells de tection in urine sediment by light microscopyOrdered By: Kervin Ovalle on 04-16-2023 Epithelial cells.squamous LM Ql (Urine sed) 5-10 SEEN /hpf 5-10 [facility] Urine blood detectionOrdered By: Kervin Oavlle on 04-16-2023 RBC Ql (U) Negative Negative [facility] RBC Ql (U) 0 SEEN /hpf 0-5 [facility] Urine clarityOrdered By: Zeke Ovalle on 04-16-2023 Clarity (U) Sl. Cloudy Clear [facility] Urine color determinationOrd ered By: Kervin Ovalle on 04-16-2023 Color (U) Yellow Yellow [facility] Urine glucose detectionOrder ed By: Kervin Ovalle on 04-16-2023 Glucose Ql (U) Normal mg/dl Normal [facility] Urine leukocyte esterase det ection by dipstickOrdered By: Kervin Ovalle on 04-16-2023 Leukocyte esterase Test strip Ql (U) 25 /ul Negative [facility] Urine pHOrdered By: Kervin Ovalle on 04-16-2023 pH (U) 6.5 [pH] 5.0 - 8.0 [facility] Urine sediment bacteria coun t by microscopy (number/high power field)Ordered By: Kervin Ovalle on 04-16-2023 Bacteria LM.HPF (Urine sed) [#/Area] 1 /[HPF] None Seen [facility] Urine specific gravity measu rementOrdered By: [facility] Flakitaelaine on 04-16-2023 Specific gravity (U) [Rel density] 1.025 1.002-1.030 [facility] Urobilinogen Auto test strip Ql (U)Ordered By: [facility] 04-16-2023 Urobilinogen Ql (U) Normal mg/dl Normal [facility] OBSTETRIC ULTRASOUND WHIon 0 04-05-2023 [facility] URINE OB DIP B/Oon 3 Glucose Ql (U) Negative Neg mg/dL [facility] Protein.monoclonal (U) [Mass/Vol] trace Neg mg/dL [facility] URINE OB DIP B/Oon 3 Glucose Ql (U) Negative Neg mg/dL [facility] Protein.monoclonal (U) [Mass/Vol] Negative Neg mg/dL [facility] BACTERIAL VAGINOSIS AMPLIFIC ATIONon 03-02-2023 Lactobacillus crispatus+gasseri+amparo senii + Gardnerella vaginalis + Atopobium vaginae rRNA CHANI+probe Ql (Vag fld) Negative Negative for bacterial vaginosis [facility] URINE OB DIP B/Oon 3 Glucose Ql (U) Negative Neg mg/dL [facility] Protein.monoclonal (U) [Mass/Vol] Negative Neg mg/dL [facility] URINE OB DIP B/Oon 3 Glucose Ql (U) Negative Neg mg/dL [facility] Protein.monoclonal (U) [Mass/Vol] Negative Neg mg/dL [facility] URINE OB DIP B/Oon 3 Glucose Ql (U) Negative Neg mg/dL [facility] Protein.monoclonal (U) [Mass/Vol] Negative Neg mg/dL [facility] N[facility]AL [facility] DIP B/Oon 3 Glucose Ql (U) Negative Neg mg/dL [facility] Protein.monoclonal (U) [Mass/Vol] Negative Neg mg/dL [facility] BACTERIAL VAGINOSIS AMPLIFIC ATIONon 10-11-2022 Lactobacillus crispatus+gasseri+amparo senii + Gardnerella vaginalis + Atopobium vaginae rRNA CHANI+probe Ql (Vag fld) Negative Negative for bacterial vaginosis [facility] BERENICE / TRICHOMONAS AMPLIF ICATIONon 10-10-2022 C. glabrata RNA CHANI+probe Ql (Vag fld) Negative Negative for Berenice glabrata [facility] Berenice albicans, C. dubliniensis, C. parapsilosis, and C. tropicalis RNA CHANI+probe Ql (Vag fld) Negative Negative for Berenice species [facility] T. vaginalis DNA CHANI+probe Ql (Unsp spec) Negative Negative for Trichomonas vaginalis by amplification [facility] CBC panel Auto (Bld)on 10-10 Erythrocyte distribution width (RBC) [Ratio] 12.9 % 11.5 - 15.0 % [facility] Hematocrit (Bld) [Volume fraction] 40.3 % 36.0 - 46.0 % [facility] Hemoglobin (Bld) [Mass/Vol] 13.8 g/dL 11.5 - 15.5 g/dL [facility] MCH (RBC) [Entitic mass] 32.4 pg 26.0 - 34.0 pg [facility] MCHC (RBC) [Mass/Vol] 34.2 g/dL 30.5 - 36.0 g/dL [facility] MCV (RBC) [Entitic vol] 94.6 fL 80.0 - 100.0 fL [facility] Nucleated RBC (Bld) [#/Vol] <0.01 k/uL [facility] Platelet mean volume (Bld) [Entitic vol] 9.9 fL 9.0 - 12.7 fL [facility] Platelets (Bld) [#/Vol] 271 10*3/uL 150 - 400 k/uL [facility] RBC (Bld) [#/Vol] 4.26 10*6/uL 3.90 - 5.2 0 m/uL [facility] WBC (Bld) [#/Vol] 10.04 10*3/uL 3.70 - 11 .00 k/uL [facility] Comprehensive metabolic 2000 panelon 10-10-2022 Albumin [Mass/Vol] 4.3 g/dL 3.9 - 4.9 g/dL [facility] ALP [Catalytic activity/Vol] 72 U/L 34 - 123 U/L [facility] ALT [Catalytic activity/Vol] 39 U/L High 7 - 38 U/L [facility] Anion gap [Moles/Vol] 9 mmol/L 9 - 18 mmol/L [facility] AST [Catalytic activity/Vol] 33 U/L 13 - 35 U/L [facility] Bilirubin [Mass/Vol] 0.2 mg/dL 0.2 - 1 .3 mg/dL [facility] Calcium [Mass/Vol] 8.7 mg/dL 8.5 - 10. 2 mg/dL [facility] Chloride [Moles/Vol] 102 mmol/L 97 - 10 5 mmol/L [facility] CO2 [Moles/Vol] 23 mmol/L 22 - 30 mmol/L [facility] Creatinine [Mass/Vol] 0.61 mg/dL 0.58 - 0.96 mg/dL [facility] Estimated Glomerular Filtration Rate 123 mL/min/1.73m >=60 mL/min/1.73m [facility] Glucose [Mass/Vol] 83 mg/dL 74 - 99 mg/dL [facility] Potassium [Moles/Vol] 3.8 mmol/L 3.7 - 5.1 mmol/L [facility] Protein [Mass/Vol] 6.9 g/dL 6.3 - 8.0 g/dL [facility] Sodium [Moles/Vol] 134 mmol/L Low 136 - 144 mmol/L [facility] Urea nitrogen [Mass/Vol] 8 mg/dL 7 - 21 mg/dL [facility] No Panel Informationon 10-10 [facility] TYPE + SCREEN PRENATALon ABO O [facility] HIstorical Ab Scr Status Negative [facility] Rh Nom (Bld) Positive [facility] Type and Screen Expiration 10/13/2022 23:59 [facility] Add On Lab Teston 04-29-2019 Sodium [Moles/Vol] Rejected [employer] Test Performed by [facility], [address], [place], [place] [address] [facility], [employer] Add on test from HISon 04-29 Add on test from HIS Rejected [facility] Comment on above: Performed By: #### H EMDF, BMP3 #### [facility] [address] [place] [address] Basic Metabolic Panelon 04-18 Anion gap [Moles/Vol] 5 Normal [facility] Comment on above: Performed By: #### H EMDF, BMP3M, LFT3 #### [facility] [address] [place] [address] Calcium [Mass/Vol] 8.7 mg/dL Normal 8.4-10.4 [facility] Comment on above: Performed By: #### H EMDF, BMP3M, LFT3 #### [facility] [address] [place] [address] CO2 [Moles/Vol] 28 mmol/L Normal 22-30 [facility] Comment on above: Performed By: #### H EMDF, BMP3M, LFT3 #### [facility] [address] [place] [address] Glucose [Mass/Vol] 123 mg/dL High 70-100 [facility] Comment on above: Performed By: #### H EMDF, BMP3M, LFT3 #### [facility] [address] [place] [address] Urea nitrogen [Mass/Vol] 9 mg/dL Normal 7-20 [facility] Comment on above: Performed By: #### H EMDF, BMP3M, LFT3 #### [facility] [address] [place] [address] Creatinine [Mass/Vol] 0.54 mg/dL Normal 0.52-1.25 [facility] Comment on above: Performed By: #### H EMDF, BMP3M, LFT3 #### [facility] [address] [place] [address] GFR/1.73 sq M predicted among blacks MDRD (S/P/Bld) [Vol rate/Area] mL/min/{1.73_m2} Normal >60 [facility] Comment on above: Performed By: #### H EMDF, BMP3M, LFT3 #### [facility] [address] [place] [address] GFR/1.73 sq M predicted among non-blacks MDRD (S/P/Bld) [Vol rate/Area] mL/min/{1.73_m2} Normal >60 [facility] Comment on above: Result Comment: Sour ce- MDRD equation with creatinine calibration to IDMS(NKDEP) eGFR not recommended for drug dose adjustment Performed By: #### H EMDF, BMP3M, LFT3 #### [facility] [employer] [facility] [address] [place] [address] Potassium [Moles/Vol] 4.2 mmol/L Normal 3.5-5.1 [facility] Comment on above: Performed By: #### H EMDF, BMP3M, LFT3 #### [facility] [employer] [facility] [address] [place] [address] Sodium [Moles/Vol] 137 mmol/L Normal 135-145 [facility] Comment on above: Performed By: #### H EMDF, BMP3M, LFT3 #### [facility] [employer] [facility] [address] [place] [address] Chloride [Moles/Vol] 104 mmol/L Normal 98-107 [facility] Comment on above: Performed By: #### H EMDF, BMP3M, LFT3 #### [facility] [employer] [facility] [address] [place] [address] Basic Metabolic Panel w/ Ref cuco to MGon 04-29-2019 Anion gap [Moles/Vol] 5 mmol/L [place] Calcium [Mass/Vol] 8.7 mg/dL 8.4 - 10. 4 mg/dL [place] Chloride [Moles/Vol] 104 mmol/L 98 - 10 7 mmol/L [place] CO2 [Moles/Vol] 28 mmol/L 22 - 30 mmol/L [place] Creatinine [Mass/Vol] 0.54 mg/dL 0.52 - 1.25 mg/dL [place] EGFR IF NonAfrican [place]ese >60.0 >60 mL/min [place] Comment on above: Source- MDRD equatio n with creatinine calibration to IDMS(NKDEP) eGFR not recommended for drug dose adjustment GFR/1.73 sq M predicted among blacks MDRD (S/P/Bld) [Vol rate/Area] mL/min/{1.73_m2} >60 mL/min [place] Glucose [Mass/Vol] 123 mg/dL High 70 - 100 mg/dL [place], [place] Potassium [Moles/Vol] 4.2 mmol/L 3.5 - 5.1 mmol/L [place] Sodium [Moles/Vol] 137 mmol/L 135 - 145 mmol/L [place] Urea nitrogen [Mass/Vol] 9 mg/dL 7 - 20 mg/dL [place] CBC auto differentialon 04-18 Absolute Baso # 0.0 10*3/uL 0 - 0.2 10*3/uL [place] Absolute Neut # 5.2 10*3/uL 1.8 - 7 10*3/uL [place] Basophils/100 WBC (Bld) 0.6 % 0 - 2 % [place] Eosinophils (Bld) [#/Vol] 0.1 10*3/uL 0 - 0.5 10*3/uL [place] Eosinophils/100 WBC (Bld) 1.6 % 1 - 6 % [place] Erythrocyte distribution width (RBC) [Ratio] 14.2 % 11.5 - 14.5 % [place] Granulocytes/100 WBC (Bld) 69.7 % 40 - 80 % [place] Hematocrit (Bld) [Volume fraction] 32.7 % Low 35 - 47 % [place] Hemoglobin (Bld) [Mass/Vol] 11.0 g/dL Low 11.7 - 16 g/dL [place] Interpretation and review of laboratory results Abnormal [place] Lymphocytes (Bld) [#/Vol] 1.6 10*3/uL 1 - 4.3 10*3/uL [place] Lymphocytes/100 WBC (Bld) 20.8 % 20 - 40 % [place] MCH (RBC) [Entitic mass] 32.1 pg 26 - 34 pg [place] MCHC (RBC) [Mass/Vol] 33.6 % 32 - 36 % [place] MCV (RBC) [Entitic vol] 95.7 fL 79 - 98 fL [place] Monocytes (Bld) [#/Vol] 0.6 10*3/uL 0 - 0.8 10*3/uL [place] Monocytes/100 WBC (Bld) 7.3 % 2 - 10 % [place] Platelet mean volume (Bld) [Entitic vol] 9.0 fL 7.4 - 10.4 fL [place] Platelets (Bld) [#/Vol] 177 10*3/uL 140 - 440 10*3/uL [place] RBC (Bld) [#/Vol] 3.42 10*6/uL Low 3.8 - 5.2 10*6/uL [place] WBC (Bld) [#/Vol] 7.5 10*3/uL 3.6 - 10.7 10*3/uL [place] Test Performed by [facility], [address] [place] [address] [place] Hemogram w/ [employer] 04-29 Abs Baso Cnt 0.0 10*3/uL Normal 0.0-0.2 [facility] Comment on above: Performed By: #### H EMDF, BMP3M, LFT3 #### [facility] [address] [place] [address] Abs Neutrophile Cnt 5.2 10*3/uL Normal 1.8-7.0 [facility] Comment on above: Performed By: #### H EMDF, BMP3M, LFT3 #### [facility] [address] [place] [address] Basophils/100 WBC (Bld) 0.6 % Normal 0.0-2.0 [facility] Comment on above: Performed By: #### H EMDF, BMP3M, LFT3 #### [facility] [address] [place] [address] Eosinophils (Bld) [#/Vol] 0.1 10*3/uL Normal 0.0-0.5 [facility] Comment on above: Performed By: #### H EMDF, BMP3M, LFT3 #### [facility] [address] [place] [address] Eosinophils/100 WBC (Bld) 1.6 % Normal 1.0-6.0 [facility] Comment on above: Performed By: #### H EMDF, BMP3M, LFT3 #### [facility] [address] [place] [address] Erythrocyte distribution width (RBC) [Ratio] 14.2 % Normal 11.5-14.5 [facility] Comment on above: Performed By: #### H EMDF, BMP3M, LFT3 #### [facility] [address] [place] [address] Granulocytes/100 WBC (Bld) 69.7 % Normal 40.0-80.0 [facility] Comment on above: Performed By: #### H EMDF, BMP3M, LFT3 #### [facility] [address] [place] [address] Hematocrit (Bld) [Volume fraction] 32.7 % Low 35.0-47.0 [facility] Comment on above: Performed By: #### H EMDF, BMP3M, LFT3 #### [facility] [address] [place] [address] Hemoglobin (Bld) [Mass/Vol] 11.0 g/dL Low 11.7-16.0 [facility] Comment on above: Performed By: #### H EMDF, BMP3M, LFT3 #### [facility] [address] [place] [address] Lymphocytes (Bld) [#/Vol] 1.6 10*3/uL Normal 1.0-4.3 [facility] Comment on above: Performed By: #### H EMDF, BMP3M, LFT3 #### [facility] [address] [place] [address] Lymphocytes/100 WBC (Bld) 20.8 % Normal 20.0-40.0 [facility] Comment on above: Performed By: #### H EMDF, BMP3M, LFT3 #### [facility] [address] [place] [address] MCH (RBC) [Entitic mass] 32.1 pg Normal 26.0-34.0 [facility] Comment on above: Performed By: #### H EMDF, BMP3M, LFT3 #### [facility] [address] [place] [address] MCHC (RBC) [Mass/Vol] 33.6 % Normal 32.0-36.0 [facility] Comment on above: Performed By: #### H EMDF, BMP3M, LFT3 #### [facility] [address] [place] [address] MCV (RBC) [Entitic vol] 95.7 fL Normal 79.0-98.0 [facility] Comment on above: Performed By: #### H EMDF, BMP3M, LFT3 #### [facility] [address] [place] [address] Monocytes (Bld) [#/Vol] 0.6 10*3/uL Normal 0.0-0.8 [facility] Comment on above: Performed By: #### H EMDF, BMP3M, LFT3 #### [facility] [address] [place] [address] Monocytes/100 WBC (Bld) 7.3 % Normal 2.0-10.0 [facility] Comment on above: Performed By: #### H EMDF, BMP3M, LFT3 #### [facility] [address] [place] [address] Platelet mean volume (Bld) [Entitic vol] 9.0 fL Normal 7.4-10.4 [facility] Comment on above: Performed By: #### H EMDF, BMP3M, LFT3 #### [facility] [address] [place] [address] Platelets (Bld) [#/Vol] 177 10*3/uL Normal 140-440 [facility] Comment on above: Performed By: #### H EMDF, BMP3M, LFT3 #### [facility] [address] [place] [address] RBC (Bld) [#/Vol] 3.42 10*6/uL Low 3.80-5.20 [facility] Comment on above: Performed By: #### H EMDF, BMP3M, LFT3 #### [facility] [address] [place] [address] WBC (Bld) [#/Vol] 7.5 10*3/uL Normal 3.6-10.7 [facility] Comment on above: Performed By: #### H EMDF, BMP3M, LFT3 #### [facility] [address] [place] [address] Hepatic Functionon 9 ALP [Catalytic activity/Vol] 80 U/L Normal 38-126 [facility] Comment on above: Performed By: #### H EMDF, BMP3M, LFT3 #### [facility] [address] [place] [address] ALT [Catalytic activity/Vol] 90 U/L High 13-69 [facility] Comment on above: Performed By: #### H EMDF, BMP3M, LFT3 #### [facility] [address] [place] [address] AST [Catalytic activity/Vol] 72 U/L High 15-46 [facility] Comment on above: Performed By: #### H EMDF, BMP3M, LFT3 #### [facility] [address] [place] [address] Bilirubin [Mass/Vol] 0.6 mg/dL Normal 0.2-1.3 [facility] Comment on above: Performed By: #### H EMDF, BMP3M, LFT3 #### [facility] [address] [place] [address] Protein [Mass/Vol] 6.1 g/dL Low 6.3-8.2 [facility] Comment on above: Performed By: #### H EMDF, BMP3M, LFT3 #### [facility] [address] [place] [address] Bilirubin.direct [Mass/Vol] 0.0 mg/dL Normal 0.0-0.3 [facility] Comment on above: Performed By: #### H EMDF, BMP3M, LFT3 #### [facility] [address] [place] [address] Albumin [Mass/Vol] 3.2 g/dL Low 3.5-5.0 [facility] Comment on above: Performed By: #### H MARII MOCK3M, LFT3 #### [facility] [address] [place] [address] Hepatic Function Panelon Albumin [Mass/Vol] 3.2 g/dL Low 3.5 - 5 g/dL [place] ALP [Catalytic activity/Vol] 80 U/L 38 - 126 U/L [place] ALT [Catalytic activity/Vol] 90 U/L High 13 - 69 U/L [place] AST [Catalytic activity/Vol] 72 U/L High 15 - 46 U/L [place] Bilirubin Ql (U) 0.6 mg/dL 0.2 - 1.3 mg/dL [place] Bilirubin.direct [Mass/Vol] 0.0 mg/dL 0 - 0.3 mg/dL [place] Protein [Mass/Vol] 6.1 g/dL Low 6.3 - 8.2 g/dL [place], [place] Otheron 04-29-2019 Interpretation and review of laboratory results Abnormal [place] Test Performed by [facility], [address] [place] [address] [place] PROCALCITONINon 04-29-2019 Procalcitonin <0.10 <0.10 ng/mL [place] Sodium [Moles/Vol] See Below [place] Comment on above: PCT <0.50 = Low risk of severe sepsis and/or septic shock. PCT >2.00 = High risk of severe sepsis and/or septic shock. Test Performed by [facility], [address] [place] [id number] [place] Procalcitoninon 04-29-2019 Procalcitonin < 0.10 Normal <0.10 [facility] Comment on above: Performed By: #### H EMDF, BMP3 #### [facility] [address] [place] [address] Interpretation See Below Normal [facility] Comment on above: Result Comment: PCT <0.50 = Low risk of severe sepsis and/or septic shock. PCT >2.00 = High risk of severe sepsis and/or septic shock. Performed By: #### H EMD, BMP3 #### [facility] [address] [place] [address] Prothrombin Timeon 9 INR Coag (PPP) [Relative time] 1.2 High 0.9-1.1 [facility] Comment on above: Result Comment: Liborio mmended Anticoagulant Therapy: SEE BELOW ----- INR of 2.0 - 3.0 : - Prophylaxis of Venous Thrombosis (high-risk surgery) - Treatment of Venous Thrombosis - Treatment of Pulmonary Embolism (Includes tissue heart valves, Acute Myocardial Infarction to prevent systemic embolism, Valvular Heart Disease, and Atrial Fibrillation) ----- INR of 2.5 - 3.5 : - Mechanical Prosthetic Valves (high risk) - If oral anticoagulant therapy is used to prevent Myocardial Infarction Performed By: #### P T #### [address] [facility] [place] [address] #### PCAL #### [address] [id number] PT Coag (PPP) [Time] 11.6 s Normal 9.0-12.0 [facility] Comment on above: Result Comment: . Performed By: #### P T #### [address] [place] [address] #### PCAL #### [address] [address] Protime-INRon 04-29-2019 INR Coag (PPP) [Relative time] 1.2 {INR} High [facility] [place] [place] Comment on above: Recommended Anticoag ulant Therapy: SEE BELOW ----- INR of 2.0 - 3.0 : - Prophylaxis of Venous Thrombosis (high-risk surgery) - Treatment of Venous Thrombosis - Treatment of Pulmonary Embolism (Includes tissue heart valves, Acute Myocardial Infarction to prevent systemic embolism, Valvular Heart Disease, and Atrial Fibrillation) ----- INR of 2.5 - 3.5 : - Mechanical Prosthetic Valves (high risk) - If oral anticoagulant therapy is used to prevent Myocardial Infarction Interpretation and review of laboratory results Abnormal [place] PT Coag (PPP) [Time] 11.6 s 9 - 12 s [place] Comment on above: . Test Performed by [facility], [address] [place] [address] [place] Basic Metabolic Panelon 08 Anion gap [Moles/Vol] 9 Normal [facility] Comment on above: Performed By: #### H EMILI BMP3 #### [facility] [address] [place] [address] Calcium [Mass/Vol] 8.8 mg/dL Normal 8.4-10.4 [facility] Comment on above: Performed By: #### H EMILI BMP3 #### [facility] [address] [place] [address] CO2 [Moles/Vol] 27 mmol/L Normal 22-30 [facility] Comment on above: Performed By: #### H EMILI BMP3 #### [facility] [address] [place] [address] Glucose [Mass/Vol] 100 mg/dL Normal 70-100 [facility] Comment on above: Performed By: #### H EMILI BMP3 #### [place] [address] [place] [address] Urea nitrogen [Mass/Vol] 9 mg/dL Normal 7-20 [facility] Comment on above: Performed By: #### Katie MOCK BMP3 #### [facility] [address] [place] [address] Creatinine [Mass/Vol] 0.51 mg/dL Low 0.52-1.25 [facility] Comment on above: Performed By: #### H EMILI BMP3 #### [facility] [address] [place] [address] GFR/1.73 sq M predicted among blacks MDRD (S/P/Bld) [Vol rate/Area] mL/min/{1.73_m2} Normal >60 [facility] Comment on above: Performed By: #### H EMILI BMP3 #### [facility] [address] [place] [address] GFR/1.73 sq M predicted among non-blacks MDRD (S/P/Bld) [Vol rate/Area] mL/min/{1.73_m2} Normal >60 [facility] Comment on above: Result Comment: Sour ce- MDRD equation with creatinine calibration to IDMS(NKDEP) eGFR not recommended for drug dose adjustment Performed By: #### H EMDF, BMP3 #### [facility] [address] [place] [address] Potassium [Moles/Vol] 3.4 mmol/L Low 3.5-5.1 [facility] Comment on above: Performed By: #### H EMDF, BMP3 #### [facility] [address] [place] [address] Sodium [Moles/Vol] 141 mmol/L Normal 135-145 [facility] Comment on above: Performed By: #### H EMDF, BMP3 #### [facility] [address] [place] [address] Chloride [Moles/Vol] 105 mmol/L Normal 98-107 [facility] Comment on above: Performed By: #### H EMDF, BMP3 #### [facility] [address] [place] [address] Anion gap [Moles/Vol] 9 mmol/L [place] Calcium [Mass/Vol] 8.8 mg/dL 8.4 - 10. 4 mg/dL [place] Chloride [Moles/Vol] 105 mmol/L 98 - 10 7 mmol/L [place] CO2 [Moles/Vol] 27 mmol/L 22 - 30 mmol/L [place] Creatinine [Mass/Vol] 0.51 mg/dL Low 0.52 - 1.25 mg/dL [place] EGFR IF NonAfrican [place]ese >60.0 >60 mL/min [place] Comment on above: Source- MDRD equatio n with creatinine calibration to IDMS(NKDEP) eGFR not recommended for drug dose adjustment GFR/1.73 sq M predicted among blacks MDRD (S/P/Bld) [Vol rate/Area] mL/min/{1.73_m2} >60 mL/min [place] Glucose [Mass/Vol] 100 mg/dL 70 - 100 mg/dL [place] Interpretation and review of laboratory results Abnormal [place] Potassium [Moles/Vol] 3.4 mmol/L Low 3.5 - 5.1 mmol/L [place] Sodium [Moles/Vol] 141 mmol/L 135 - 145 mmol/L [place] Urea nitrogen [Mass/Vol] 9 mg/dL 7 - 20 mg/dL [place] Test Performed by [facility], 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 COMPARISON: None. FINDINGS: No fracture or dislocation of the left elbow is identified. There is no joint effusion or radiopaque foreign body seen. IMPRESSION: Negative plain film examination of the left elbow. Report Dictated on Final Dictating Physician: MD GILL JONATHAN R Signed Date and Time: 04/28/2019 4:16 pm Signed by: MD GILL JONATHAN R Transcribed Date and Time: 04/28/2019 4:17 Normal [facility] Complete Urinalysison 2018 Appearance (U) Clear Normal [facility] Comment on above: Result Comment: Refe rence Range: Clear Performed By: #### H CGUR, CUA2, DRGA4 #### [facility] [address] [place] [address] Bilirubin,Urine Negative Normal [facility] Comment on above: Result Comment: Refe rence Range: Negative Performed By: #### H CGUR, CUA2, DRGA4 #### [facility] [address] [place] [address] Color (U) Yellow Normal [facility] Comment on above: Result Comment: Refe rence Range: Lt. Yellow Performed By: #### H CGUR, CUA2, DRGA4 #### [facility] [address] [place] [address] Glucose Ql (U) Normal Normal [facility] Comment on above: Result Comment: Refe rence Range: Normal (<70) Performed By: #### H CGUR, CUA2, DRGA4 #### [facility] [address] [place] [address] Ketone,Urine Negative Normal [facility] Comment on above: Result Comment: Refe rence Range: Negative Performed By: #### H CGUR, CUA2, DRGA4 #### [facility] [address] [place] [address] Leukocytes,Urine Negative Normal [facility] Comment on above: Result Comment: Refe rence Range: Negative Performed By: #### H CGUR, CUA2, DRGA4 #### [facility] [address] [place] [address] Mucous Threads Few Normal [facility] Comment on above: Result Comment: Refe rence Range: Negative Performed By: #### H CGUR, CUA2, DRGA4 #### [facility] [address] [place] [address] Nitrites,Urine Negative Normal [facility] Comment on above: Result Comment: Refe rence Range: Negative Performed By: #### H CGUR, CUA2, DRGA4 #### [facility] [address] [place] [address] Occult Blood,Urine Negative Normal [facility] Comment on above: Result Comment: Refe rence Range: Negative Performed By: #### H CGUR, CUA2, DRGA4 #### [facility] [address] [place] [address] pH (U) 6.5 Normal 5.0-8.0 [facility] Comment on above: Performed By: #### H CGUR, CUA2, DRGA4 #### [facility] [address] [place] [address] Protein (U) [Mass/Vol] 10 mg/dL Normal [facility] Comment on above: Result Comment: Refe rence Range: Negative Performed By: #### H CGUR, CUA2, DRGA4 #### [facility] [address] [place] [address] RBC LM.HPF (Urine sed) [#/Area] 0 - 2 Normal [facility] Comment on above: Result Comment: Refe rence Range: 0-2 Performed By: #### H CGUR, CUA2, DRGA4 #### [facility] [address] [place] [address] Specific [place],Urine 1.026 Normal 1.005-1.030 [facility] Comment on above: Performed By: #### H CGUR, CUA2, DRGA4 #### [facility] [address] [place] [address] Squamous Epithelial 11 - 25 Normal [facility] Comment on above: Result Comment: Refe rence Range: 3-5 Performed By: #### H CGUR, CUA2, DRGA4 #### [facility] [address] [place] [address] Urobilinogen,Urine Normal Normal [facility] Comment on above: Result Comment: Refe rence Range: Normal (0-1) Performed By: #### H CGUR, CUA2, DRGA4 #### [facility] [address] [place] [address] WBC LM.HPF (Urine sed) [#/Area] 3 - 5 Normal [facility] Comment on above: Result Comment: Refe rence Range: 0-5 Performed By: #### H CGUR, CUA2, DRGA4 #### [facility] [address] [place] [address] Drugs of Abuseon 04-28-2019 Phencyclidine (PCP), Ur Negative Normal [facility] Comment on above: Result Comment: The expected value for all of the drugs listed above is Negative. The following drugs or drug groups have been screened for by Immunoassay at the following thresholds: Amphetamine class (1000 ng/mL), Barbiturates (200 ng/mL), Benzodiazepines (200 ng/mL), Cocaine (300 ng/mL), Methadone (300 ng/mL), Opiates (300 ng/mL), Oxycodone (100 ng/mL), and PCP (25 ng/mL). NOTE: These results are for medical treatment only. Analysis performed using non-forensic procedures. POSITIVE results are NOT confirmed by a more specific alternative method unless requested. If confirmation is needed, request confirmation under separate order. Performed By: #### H CGUR, CUA2, DRGA4 #### [facility] [address] [place] [address] Methadone, Ur Negative Normal [facility] Comment on above: Performed By: #### H CGUR, CUA2, DRGA4 #### [facility] [address] [place] [address] Opiates, Ur Positive Normal [facility] Comment on above: Performed By: #### H CGUR, CUA2, DRGA4 #### [facility] [address] [place] [address] Cocaine, Ur Negative Normal [facility] Comment on above: Performed By: #### H CGUR, CUA2, DRGA4 #### [facility] [address] [place] [address] Barbiturates, Ur Negative Normal [facility] Comment on above: Performed By: #### H CGUR, CUA2, DRGA4 #### [facility] [address] [place] [address] Benzodiazepines, Ur Negative Normal [facility] Comment on above: Performed By: #### H CGUR, CUA2, DRGA4 #### [facility] [address] [place] [address] Amphetamines, Ur Negative Normal [facility] Comment on above: Performed By: #### H CGUR, CUA2, DRGA4 #### [facility] [address] [place] [address] Oxycodone/Oxymorphine ,Ur Negative Normal [facility] Comment on above: Performed By: #### H CGUR, CUA2, DRGA4 #### [facility] [address] [place] [address] HCG,Urine Qualon 04-28-2019 Beta HCG ( test) Ql (U) Negative Normal Negative [facility] Comment on above: Result Comment: Preg joshua is the most common reason for HCG in urine, although choriocarcinoma, hydatidiform mole, and certain nontropho- blastic malignancies also result in detectable urinary HCG levels. Sensitivity = 20mIU/mL. Performed By: #### H CGUR, CUA2, DRGA4 #### [facility] [address] [place] [address] Hemogram (CBC) w/Auto Diffon 04-28-2019 Absolute Baso # 0.1 10*3/uL 0 - 0.2 10*3/uL [place] Absolute Neut # 7.8 10*3/uL High 1.8 - 7 10*3/uL [place] Basophils/100 WBC (Bld) 0.8 % 0 - 2 % [place] Eosinophils (Bld) [#/Vol] 0.1 10*3/uL 0 - 0.5 10*3/uL [place] Eosinophils/100 WBC (Bld) 1.2 % 1 - 6 % [place] Erythrocyte distribution width (RBC) [Ratio] 14.4 % 11.5 - 14.5 % [place] Granulocytes/100 WBC (Bld) 73.1 % 40 - 80 % [place] Hematocrit (Bld) [Volume fraction] 37.6 % 35 - 47 % [place] Hemoglobin (Bld) [Mass/Vol] 12.8 g/dL 11.7 - 16 g/dL [place] Interpretation and review of laboratory results Abnormal [place] Lymphocytes (Bld) [#/Vol] 1.9 10*3/uL 1 - 4.3 10*3/uL [place] Lymphocytes/100 WBC (Bld) 17.9 % Low 20 - 40 % [place] MCH (RBC) [Entitic mass] 31.8 pg 26 - 34 pg [place] MCHC (RBC) [Mass/Vol] 33.9 % 32 - 36 % [place] MCV (RBC) [Entitic vol] 93.7 fL 79 - 98 fL [place] Monocytes (Bld) [#/Vol] 0.7 10*3/uL 0 - 0.8 10*3/uL [place] Monocytes/100 WBC (Bld) 7.0 % 2 - 10 % [place] Platelet mean volume (Bld) [Entitic vol] 8.5 fL 7.4 - 10.4 fL [place] Platelets (Bld) [#/Vol] 241 10*3/uL 140 - 440 10*3/uL [place] RBC (Bld) [#/Vol] 4.01 10*6/uL 3.8 - 5.2 10*6/uL [place] WBC (Bld) [#/Vol] 10.7 10*3/uL 3.6 - 10.7 10*3/uL [place] Test Performed by [facility], [address] [place] [address] [place] Hemogram w/ Autodiffon 04-28 Abs Baso Cnt 0.1 10*3/uL Normal 0.0-0.2 [facility] Comment on above: Performed By: #### H EMDF, BMP3 #### [facility] [address] [place] [address] Abs Neutrophile Cnt 7.8 10*3/uL High 1.8-7.0 [facility] Comment on above: Performed By: #### H EMDF, BMP3 #### [facility] [address] [place] [address] Basophils/100 WBC (Bld) 0.8 % Normal 0.0-2.0 [facility] Comment on above: Performed By: #### H EMDF, BMP3 #### [facility] [address] [place] [place] [address] Eosinophils (Bld) [#/Vol] 0.1 10*3/uL Normal 0.0-0.5 [facility] Comment on above: Performed By: #### H EMDF, BMP3 #### [facility] [address] [place] [address] Eosinophils/100 WBC (Bld) 1.2 % Normal 1.0-6.0 [facility] Comment on above: Performed By: #### H EMDF, BMP3 #### [facility] [address] [place] [address] Erythrocyte distribution width (RBC) [Ratio] 14.4 % Normal 11.5-14.5 [facility] Comment on above: Performed By: #### H EMDF, BMP3 #### [facility] [address] [place] [address] Granulocytes/100 WBC (Bld) 73.1 % Normal 40.0-80.0 [facility] Comment on above: Performed By: #### H EMDF, BMP3 #### [facility] [address] [place] [address] Hematocrit (Bld) [Volume fraction] 37.6 % Normal 35.0-47.0 [facility] Comment on above: Performed By: #### H EMDF, BMP3 #### [facility] [address] [place] [address] Hemoglobin (Bld) [Mass/Vol] 12.8 g/dL Normal 11.7-16.0 [facility] Comment on above: Performed By: #### H EMDF, BMP3 #### [facility] [address] [place] [address] Lymphocytes (Bld) [#/Vol] 1.9 10*3/uL Normal 1.0-4.3 [facility] Comment on above: Performed By: #### H EMDF, BMP3 #### [facility] [address] [place] [address] Lymphocytes/100 WBC (Bld) 17.9 % Low 20.0-40.0 [facility] Comment on above: Performed By: #### H EMDF, BMP3 #### [facility] [address] [place] [address] MCH (RBC) [Entitic mass] 31.8 pg Normal 26.0-34.0 [facility] Comment on above: Performed By: #### H EMDF, BMP3 #### [facility] [address] [place] [address] MCHC (RBC) [Mass/Vol] 33.9 % Normal 32.0-36.0 [facility] Comment on above: Performed By: #### H EMDF, BMP3 #### [facility] [address] [place] [address] MCV (RBC) [Entitic vol] 93.7 fL Normal 79.0-98.0 [facility] Comment on above: Performed By: #### H EMDF, BMP3 #### [facility] [address] [place] [address] Monocytes (Bld) [#/Vol] 0.7 10*3/uL Normal 0.0-0.8 [facility] Comment on above: Performed By: #### H EMDF, BMP3 #### [facility] [address] [place] [address] Monocytes/100 WBC (Bld) 7.0 % Normal 2.0-10.0 [facility] Comment on above: Performed By: #### H EMDF, BMP3 #### [facility] [address] [place] [address] Platelet mean volume (Bld) [Entitic vol] 8.5 fL Normal 7.4-10.4 [facility] Comment on above: Performed By: #### H EMDF, BMP3 #### [facility] [address] [place] [address] Platelets (Bld) [#/Vol] 241 10*3/uL Normal 140-440 [facility] Comment on above: Performed By: #### H EMDF, BMP3 #### [facility] [address] [place] [address] RBC (Bld) [#/Vol] 4.01 10*6/uL Normal 3.80-5.20 [facility] Comment on above: Performed By: #### H EMDF, BMP3 #### [facility] [address] [place] [address] WBC (Bld) [#/Vol] 10.7 10*3/uL Normal 3.6-10.7 [facility] Comment on above: Performed By: #### H MARII MOCK3 #### [facility] [address] [place] [address] VL Venous Duplex US Upper Ex t Lefton 04-28-2019 VL Venous Duplex US Upper Ext Left Patient Name: TIFFANIE CORTEZ Ultrasound Exam Date/Time 04/28/2019 16:44:42 EDT Exam VL Venous Duplex US Upper Ext Left Ordering Physician KURT CARABALLO Accession Number [id number] CPT4 Codes 70925 () Reason For Exam left upper pain swelling reddness - hx heroin use Report [facility] --- --- Left Upper Extremity Venous Duplex Report Patient Name: Tiffanie Cortez : 1990 Study 04/28/2019 L (28yrs) Date: Age: 28 Account: [id number] Gender: F Loc: [id number] BP: Ordering: Kurt Steiner Technologist: Ordering Physician: Kurt Steiner Sales Engineer Account Manager: Kavitha Meza Interpreting Physician: Aaron Llanos MD --- --- Location: [facility] --- --- INDICATIONS: Pain and edema of the left antecubital fossa following needle stick two weeks ago Patient denies any personal or family history of DVT/SVT or PE. Patient denies any travel, hospitalizations, surgeries or trauma within the last 30 days. Vascular testing was performed at the bedside. --- --- CONCLUSIONS 1. Findings show superficial vein thrombosis involving the left arm in the veins noted below. 2. Heterogeneous area in the left antecubital fossa measuring 1.44 x 1.7 x 2.94 cm - non vascular. --- --- IMPRESSIONS: - Study shows acute superficial vein thrombosis of the left cephalic vein. - These findings are negative for deep vein thrombosis in the left upper extremity. - Findings show superficial vein thrombosis involving the left arm in the veins noted below. --- --- STUDY DATA: Left upper extremity venous duplex. Birthdate: Patient birthdate: 1990. Age: Patient is 28 yr old. Sex: Gender: female. Ethnicity: Ethnicity: white. Doppler flow study including spectral analysis, color and naranjo scale imaging. Patient status: Emergency department. Procedure: A vascular evaluation was performed. The images were obtained using a Cardiosolutions E9 vascular ultrasound machine. --- --- VENOUS FLOW AND IMAGING: + +------- -------+ +----- + --- --+ !Location !Overall !Thrombosis!Flow properties !Comments ! + +------- -------+ +----- + --- --+ !Left internal ! !-------- --!Normal phasicity; ! --! !jugular ! ! !spontaneous; ! ! ! ! ! !normal ! ! ! ! ! !augmentation; ! ! ! ! ! !compressible ! ! + +------- -------+ +----- + --- --+ !Left innominate! -! !Spontaneous ; ! --! ! ! ! !normal ! ! ! ! ! !augmentation ! ! + +------- -------+ +----- + --- --+ !Left subclavian! -! !Normal phasicity; ! --! ! ! ! !spontaneous; ! ! ! ! ! !normal ! ! ! ! ! !augmentation; ! ! ! ! ! !compressible ! ! + +------- -------+ +----- + --- --+ !Left axillary ! !-------- --!Normal phasicity; ! --! ! ! ! !spontaneous; ! ! ! ! ! !normal ! ! ! ! ! !augmentation; ! ! ! ! ! !compressible ! ! + +------- -------+ +----- + --- --+ !Left brachial ! !-------- --!Normal phasicity; ! --! ! ! ! !spontaneous; ! ! ! ! ! !normal ! ! ! ! ! !augmentation; ! ! ! ! ! !compressible ! ! + +------- -------+ +----- + --- --+ !Left radial ! !-------- --!Compressible ! --! + +------- -------+ +----- + --- --+ !Left ulnar ! !-------- --!Compressible ! --! + +------- -------+ +----- + --- --+ !Left basilic ! !-------- --!Compressible ! --! + +------- -------+ +----- + --- --+ !Left cephalic !Totally !Acute ! !non comp in the! ! !occluded ! ! !antecubital ! ! ! ! ! !fossa at needle! ! ! ! ! !site. ! + +------- -------+ +----- + --- --+ !Right ! !-------- --!Normal phasicity; ! --! !subclavian ! ! !spontaneous; ! ! ! ! ! !normal ! ! ! ! ! !augmentation; ! ! ! ! ! !compressible ! ! + +------- -------+ +----- + --- --+ Electronically signed by: Aaron Llanos MD [id number] Final Dictated: 04/29/2019 9:16 am Dictating Physician: AARON LLANOS Signed Date and Time: 04/29/2019 9:15 am Signed by: AARON LLANOS [facility] XR ELBOW LEFT (MIN 3 VIEWS)o n 04-28-2019 Alex, [facility] Incoming Radiology Results From [facility] - 04/28/2019 4:18 PM EDT Patient Name: TIFFANIE CORTEZ ---Diagnostic Radiology--- Exam Date/Time 04/28/2019 16:08:06 EDT Exam CR Elbow 3+ Views Left Ordering Physician KURT CARABALLO Accession Number [id number] CPT4 Codes 28244 () Reason For Exam pain and swelling at the left AC - 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 COMPARISON: None. FINDINGS: No fracture or dislocation of the left elbow is identified. There is no joint effusion or radiopaque foreign body seen. IMPRESSION: Negative plain film examination of the left elbow. 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 COMPARISON: None. FINDINGS: No fracture or dislocation of the left elbow is identified. There is no joint effusion or radiopaque foreign body seen. IMPRESSION: Negative plain film examination of the left elbow. Report Dictated on --- Final --- Dictating Physician: MD GILL JONATHAN R Signed Date and Time: 04/28/2019 4:16 pm Signed by: MD GILL JONATHAN R Transcribed Date and Time: 04/28/2019 4:17 [place], [place] ED NOTEon 01-31-2018 ED NOTE HNO ID: [id number]: Rajat ReesRn) RUTHIE Doniservice: Emergency MedicineAuthor Type: Registered NurseType: ED NotesFiled: 01/31/2018 4:04 PMNote Text:Pt presents to d c/o tooth pain Left lower tooth. Pt able to swallow. Perpt she has seen the dentist and neesd the tooth pulled, but cannot gt itpulled at this time. Pt states she just finished amoxicillin that wasprescribed by the dentist aprrox 1 week ago.pt rates pain 10/10 anddescribes pain as sharp and continues. Pt is alert and oriented and guevara ptambulatory on arrival [facility] ED PROV NOTEon 01-31-2018 ED PROV NOTE HNO ID: [id number]: Jacinto Redd (Monica) GreggService: Emergency MedicineAuthor Type: Nurse PractitionerType: ED Provider NotesFiled: 01/31/2018 7:21 PMNote Text:ED Provider NotePatient Name: Tiffanie CortezMRN: [id number] DATE: 01/31/18HistoryPatient presents with:Mouth/Lip ProblemPatient is 27-year-old female with left lower dental pain/abscess whostates that she previously took amoxicillin and cannot see the dentist forone week. Patient is from [facility].Patient denies dizziness, chest pain, shortness of breath or difficultybreathing, abdominal pain, nausea vomiting constipation or diarrhea.No past medical history on file.No past surgical history on file.No family history on file.Social HistorySocial History Main Topics- Smoking status: Former Smoker- Smokeless tobacco: Never Used Comment: quit 2017- Alcohol use Not on file- Drug use: No- Sexual activity: NoALLERGIESNo Known AllergiesReview of SystemsConstitutional: Negative.HENT: Positive for dental problem.Eyes: Negative.Respiratory: Negative.Cardiovascular: Negative.Gastrointestina l: Negative.Endocrine: Negative.Genitourinary: Negative.Musculoskeletal : Negative.Skin: Negative.Allergic/Immuno logic: Negative.Neurological: Negative.Hematological: Negative.Psychiatric/Beh avioral: Negative.Physical ExamBP 142/94 Pulse 89 Temp (Src) 98.1 (Oral) Resp 18 Ht 5' 8 (1.73m) Wt 180 lb (81.6kg) SpO2 98% LMP 01/17/2018 BMI 27.38 kg/(m2).Physical ExamConstitutional: She is oriented to person, place, and time. She appearswell-developed and well-nourished. No distress.HENT:Head: Normocephalic and atraumatic.Right Ear: External ear normal.Left Ear: External ear normal.Nose: Nose normal.Mouth/Throat: Oropharynx is clear and moist.Eyes: Conjunctivae and EOM are normal. Pupils are equal, round, andreactive to light.Neck: Normal range of motion. Neck supple. No JVD present. No trachealdeviation present.Cardiovascular: Normal rate, regular rhythm, normal heart sounds andintact distal pulses.Pulmonary/Chest: Effort normal and breath sounds normal. No stridor. Norespiratory distress. She has no wheezes. She has no rales. She exhibitsno tenderness.Abdominal: Soft. Bowel sounds are normal. She exhibits no distension.There is no tenderness. There is no guarding.Musculoskeletal : Normal range of motion. She exhibits no edema, tendernessor deformity.Lymphadenopath y: She has no cervical adenopathy.Neurological: She is alert and oriented to person, place, and time. Shedisplays normal reflexes. No cranial nerve deficit or sensory deficit. Sheexhibits normal muscle tone. Coordination normal.Skin: Skin is warm and dry. Capillary refill takes less than 2 seconds.She is not diaphoretic.Psychiatric: She has a normal mood and affect. Her behavior is normal.Judgment and thought content normal.Nursing note and vitals reviewed.Diagnostic TestingED Labs Ordered and Reviewed - No data to displayProceduresMedical Decision MakingMDMHistory of present illness, review of systems, physical examination asentered. After examination, assessment and interview patient, patientdoes present with severe dental caries, pain and discomfort, left lowerdental area. Patient was on amoxicillin from dentist. Can see anotherdentist until one week and [facility]. Patient willbe placed on clindamycin this point. Patient denies any possibility ofbeing . Patient's pain is diffuse with Toradol and given aprescription for ibuprofen 600 mg. Patient will follow up with dentalcare professional. [facility] understanding of this plan of care verbal agreement to same.ED Course / Clinical ImpressionClinical Impressions as of Jan 31 1915Dental abscessDental cariesPlanThe patient was DISCHARGED: Counseled patient regarding suspecteddiagnosis AND need for follow-up. Discharged home with verbal and writteninstructions. They were instructed to return as needed for persistent orworsening symptoms or any new concerns.Condition at time of disposition: stableSIGNATURE: Jacinto Escobedo APRN.Olesya Redd (Monica) [id number] Normal [facility] ED Triage Noteon 01-31-2018 ED Triage Note HNO ID: [id number]: Ollie Amaya) Beck Benjamin: Emergency MedicineAuthor Type: Physician AssistantType: ED Triage NotesFiled: 01/31/2018 4:03 PMNote Text:ED INTAKE NOTEPatient Name: Tiffanie CortezMRN: [id number] Date: 01/31/18BRIEF HPI:27-year-old female with chief complaint of dental pain. She states shehas a tooth on the bottom left side that has been giving her problems forquite some time. She was on amoxicillin recently and stopped taking itabout a week ago. She denies fever, chills, difficulty swallowing.BRIEF EXAM:Awake and AlertRRRCTABMAENo trismus, drooling, tripoding, facial swelling noted. Tooth decay notedon the bottom left molars.INTAKE WORKUP:DeferredSIGNATURE : Ollie Benjamin PA-C Normal [facility] Emergency Room Note on 06-01-2017 [place] [facility] Note Normal [facility] [place] Patient Summary Documentson 06-01-2017 Patient Summary Documents Normal [facility] [place] Vital Signs Date Time Vital Sign Value Performing Clinician Facility 04-02-2025 11:10-0400 Body mass index (BMI) [Ratio] 31.13 kg/m2 Christian Boyce MD Work Phone: [facility] 04-02-2025 11:10-0400 Body weight 94.8 kg Christian Boyce MD Work Phone: [facility] 04-02-2025 11:10-0400 Diastolic blood pressure 72 mm[Hg] Christian Boyce MD Work Phone: [facility] 04-02-2025 11:10-0400 Systolic blood pressure 122 mm[Hg] Christian Boyce MD Work Phone: [facility] 03-24-2025 10:25-0400 Body mass index (BMI) [Ratio] 30.69 kg/m2 Kervin Ovalle APRN.RICKYM Work Phone: [facility] 03-24-2025 10:25-0400 Body weight 93.44 kg Kervin Ovalle APRN.LIA Work Phone: [facility] 03-24-2025 10:25-0400 Diastolic blood pressure 70 mm[Hg] Kervin Plotts PROCUREMENT TECHNICIAN.CNM Work Phone: [facility] 03-24-2025 10:25-0400 Systolic blood pressure 124 mm[Hg] Kervin Plotts PROCUREMENT TECHNICIAN.CNM Work Phone: [facility] 03-20-2025 15:02-0400 Body mass index (BMI) [Ratio] 31.31 kg/m2 Kervin Plotts PROCUREMENT TECHNICIAN.CNM Work Phone: [facility] 03-20-2025 15:02-0400 Body weight 95.35 kg Kervin Plotts PROCUREMENT TECHNICIAN.CNM Work Phone: [facility] 03-20-2025 15:02-0400 Diastolic blood pressure 64 mm[Hg] Kervin Plotts PROCUREMENT TECHNICIAN.CNM Work Phone: [facility] 03-20-2025 15:02-0400 Systolic blood pressure 122 mm[Hg] Kervin Plotts PROCUREMENT TECHNICIAN.CNM Work Phone: [facility] 03-20-2025 08:35-0400 Body height 174.5 cm Oracio Finelli DO Work Phone: [facility] 03-20-2025 08:35-0400 Body mass index (BMI) [Ratio] 30.84 kg/m2 Oracio Finelli DO Work Phone: [facility] 03-20-2025 08:35-0400 Body weight 93.89 kg Oracio Finelli DO Work Phone: [facility] 03-20-2025 08:35-0400 Diastolic blood pressure 80 mm[Hg] Oracio Finelli DO Work Phone: [facility] 03-20-2025 08:35-0400 Heart rate 77 /min Oracio Finelli DO Work Phone: [facility] 03-20-2025 08:35-0400 Systolic blood pressure 115 mm[Hg] Oracio Finelli DO Work Phone: [facility] 03-18-2025 07:23-0400 Diastolic blood pressure 80 mm[Hg] Kristen Farr CNM Work Phone: [facility] 03-18-2025 07:23-0400 Heart rate 78 /min Kristen Farr CNM Work Phone: [facility] 03-18-2025 07:23-0400 Respiratory rate 16 /min Kristen Farr CNM Work Phone: [facility] 03-18-2025 07:23-0400 Systolic blood pressure 124 mm[Hg] Kristen Farr CNM Work Phone: [facility] 03-17-2025 21:57-0400 Body height 172.72 cm Kristen Farr CNM Work Phone: [facility] 03-17-2025 21:57-0400 Body mass index (BMI) [Ratio] 31.6 kg/m2 Kristen Farr CNM Work Phone: [facility] 03-17-2025 21:57-0400 Body weight 94.25 kg Kristen Farr CNM Work Phone: [facility] 03-17-2025 21:40-0400 Body temperature 97.4 [degF] Kristen Farr CNM Work Phone: [facility] 03-17-2025 21:39-0400 SaO2% (BldA) [Mass fraction] 98 % Kristen Farr CNM Work Phone: [facility] 03-05-2025 11:21-0400 Body mass index (BMI) [Ratio] 30.27 kg/m2 Kervin Ovalle PROCUREMENT TECHNICIAN.CNM Work Phone: [facility] 03-05-2025 11:21-0400 Body weight 92.17 kg Kervin Ovalle PROCUREMENT TECHNICIAN.CNM Work Phone: [facility] 03-05-2025 11:21-0400 Diastolic blood pressure 64 mm[Hg] Kervin Ovalle PROCUREMENT TECHNICIAN.CNM Work Phone: [facility] 03-05-2025 11:21-0400 Systolic blood pressure 118 mm[Hg] Kervin Plotts PROCUREMENT TECHNICIAN.CNM Work Phone: [facility] 02-14-2025 13:38-0400 Body mass index (BMI) [Ratio] 29.64 kg/m2 Christian Boyce MD Work Phone: [facility] 02-14-2025 13:38-0400 Body weight 90.27 kg Christian Boyce MD Work Phone: [facility] 02-14-2025 13:38-0400 Diastolic blood pressure 62 mm[Hg] Christian Boyce MD Work Phone: [facility] 02-14-2025 13:38-0400 Systolic blood pressure 112 mm[Hg] Christian Boyce MD Work Phone: [facility] 01-29-2025 10:56-0400 Body mass index (BMI) [Ratio] 29.52 kg/m2 Kervin Plotelaine PROCUREMENT TECHNICIAN.CNM Work Phone: [facility] 01-29-2025 10:56-0400 Body weight 89.9 kg Kervin Plotelaine PROCUREMENT TECHNICIAN.CNM Work Phone: [facility] 01-29-2025 10:56-0400 Diastolic blood pressure 74 mm[Hg] Kervin Plotts PROCUREMENT TECHNICIAN.CNM Work Phone: [facility] 01-29-2025 10:56-0400 Systolic blood pressure 120 mm[Hg] Kervin Plotelaine PROCUREMENT TECHNICIAN.CNM Work Phone: [facility] 01-26-2025 14:34-0400 Body mass index (BMI) [Ratio] 29.75 kg/m2 Chichi Bell PROCUREMENT TECHNICIAN.ELEVATOR SERVICE MECHANIC Work Phone: [facility] 01-26-2025 14:34-0400 Body temperature 98.2 [degF] Chichi Bell PROCUREMENT TECHNICIAN.ELEVATOR SERVICE MECHANIC Work Phone: [facility] 01-26-2025 14:34-0400 Body weight 90.6 kg Chichi Arabella PROCUREMENT TECHNICIAN.ELEVATOR SERVICE MECHANIC Work Phone: [facility] 01-26-2025 14:34-0400 Diastolic blood pressure 82 mm[Hg] Chichi Arabella PROCUREMENT TECHNICIAN.ELEVATOR SERVICE MECHANIC Work Phone: [facility] 01-26-2025 14:34-0400 Heart rate 95 /min Chichi Arabella PROCUREMENT TECHNICIAN.ELEVATOR SERVICE MECHANIC Work Phone: [facility] 01-26-2025 14:34-0400 Respiratory rate 16 /min Chichi Arabella PROCUREMENT TECHNICIAN.ELEVATOR SERVICE MECHANIC Work Phone: [facility] 01-26-2025 14:34-0400 SaO2% (BldA) [Mass fraction] 99 % Chichi Arabella PROCUREMENT TECHNICIAN.ELEVATOR SERVICE MECHANIC Work Phone: [facility] 01-26-2025 14:34-0400 Systolic blood pressure 122 mm[Hg] Chichi Arabella PROCUREMENT TECHNICIAN.ELEVATOR SERVICE MECHANIC Work Phone: [facility] 12-27-2024 10:38-0400 Body mass index (BMI) [Ratio] 29.35 kg/m2 Vincent Thomas MD Work Phone: [facility] 12-27-2024 10:38-0400 Body weight 89.36 kg Vincent Thomas MD Work Phone: [facility] 12-27-2024 10:38-0400 Diastolic blood pressure 72 mm[Hg] Vincent Thomas MD Work Phone: [facility] 12-27-2024 10:38-0400 Systolic blood pressure 120 mm[Hg] Vincent Thomas MD Work Phone: [facility] 11-29-2024 09:01-0400 Body mass index (BMI) [Ratio] 28.75 kg/m2 Kervin Ovalle PROCUREMENT TECHNICIAN.CNM Work Phone: [facility] 11-29-2024 09:01-0400 Body weight 87.54 kg Kervin Ovalle PROCUREMENT TECHNICIAN.CNM Work Phone: [facility] 11-29-2024 09:01-0400 Diastolic blood pressure 64 mm[Hg] Kervin Plotts PROCUREMENT TECHNICIAN.CNM Work Phone: [facility] 11-29-2024 09:01-0400 Systolic blood pressure 110 mm[Hg] Kervin Plotts PROCUREMENT TECHNICIAN.CNM Work Phone: [facility] 11-01-2024 10:25-0500 Body mass index (BMI) [Ratio] 28.15 kg/m2 Rukhsana Mckinnon MD Work Phone: [facility] 11-01-2024 10:25-0500 Body weight 85.73 kg Rukhsana Mckinnon MD Work Phone: [facility] 11-01-2024 10:25-0500 Diastolic blood pressure 68 mm[Hg] Rukhsana Mckinnon MD Work Phone: [facility] 11-01-2024 10:25-0500 Systolic blood pressure 114 mm[Hg] Rukhsana Mckinnon MD Work Phone: [facility] 10-04-2024 10:06-0500 Body mass index (BMI) [Ratio] 28.66 kg/m2 Rukhsana Mckinnon MD Work Phone: [facility] 10-04-2024 10:06-0500 Body weight 87.27 kg Rukhsana Mckinnon MD Work Phone: [facility] 10-04-2024 10:06-0500 Diastolic blood pressure 70 mm[Hg] Rukhsana Mckinnon MD Work Phone: [facility] 10-04-2024 10:06-0500 Systolic blood pressure 110 mm[Hg] Rukhsana Mckinnon MD Work Phone: [facility] 09-20-2024 09:33-0500 Body height 174.5 cm Zena Fontenot APRN.ELEVATOR SERVICE MECHANIC Work Phone: [facility] 09-20-2024 09:33-0500 Body mass index (BMI) [Ratio] 28.6 kg/m2 Zena Fontenot APRN.ELEVATOR SERVICE MECHANIC Work Phone: [facility] 09-20-2024 09:33-0500 Body weight 87.09 kg Zena Kellyury PROCUREMENT TECHNICIAN.ELEVATOR SERVICE MECHANIC Work Phone: [facility] 09-20-2024 09:33-0500 Diastolic blood pressure 68 mm[Hg] Zena Haury PROCUREMENT TECHNICIAN.ELEVATOR SERVICE MECHANIC Work Phone: [facility] 09-20-2024 09:33-0500 Systolic blood pressure 120 mm[Hg] Zena Kellyury PROCUREMENT TECHNICIAN.ELEVATOR SERVICE MECHANIC Work Phone: [facility] 08-27-2024 10:42-0500 Body mass index (BMI) [Ratio] 29.19 kg/m2 Kalyani Rajguru PROCUREMENT TECHNICIAN.ELEVATOR SERVICE MECHANIC Work Phone: [facility] 08-27-2024 10:42-0500 Body weight 87.09 kg Kalyani Rajguru PROCUREMENT TECHNICIAN.ELEVATOR SERVICE MECHANIC Work Phone: [facility] 08-27-2024 10:42-0500 Diastolic blood pressure 62 mm[Hg] Kalyani Rajguru PROCUREMENT TECHNICIAN.ELEVATOR SERVICE MECHANIC Work Phone: [facility] 08-27-2024 10:42-0500 Heart rate 76 /min Kalyani Rajguru PROCUREMENT TECHNICIAN.ELEVATOR SERVICE MECHANIC Work Phone: [facility] 08-27-2024 10:42-0500 Respiratory rate 18 /min Kalyani Rajguru PROCUREMENT TECHNICIAN.ELEVATOR SERVICE MECHANIC Work Phone: [facility] 08-27-2024 10:42-0500 Systolic blood pressure 116 mm[Hg] Kalyani Rajguru PROCUREMENT TECHNICIAN.ELEVATOR SERVICE MECHANIC Work Phone: [facility] 07-16-2024 11:41-0400 Body mass index (BMI) [Ratio] 29.35 kg/m2 Mamie Baxter PA-C Work Phone: [facility] 07-16-2024 11:41-0400 Body temperature 97.5 [degF] Mamie Baxter PA-C Work Phone: [facility] 07-16-2024 11:41-0400 Body weight 87.54 kg Mamie Baxter PA-C Work Phone: [facility] 07-16-2024 11:41-0400 Diastolic blood pressure 60 mm[Hg] Mamie Baxter PA-C Work Phone: [facility] 07-16-2024 11:41-0400 Heart rate 88 /min Mamie Baxter PA-C Work Phone: [facility] 07-16-2024 11:41-0400 Respiratory rate 18 /min Mamie Baxter PA-C Work Phone: [facility] 07-16-2024 11:41-0400 SaO2% (BldA) [Mass fraction] 98 % Mamie Baxter PA-C Work Phone: [facility] 07-16-2024 11:41-0400 Systolic blood pressure 98 mm[Hg] Mamie Baxter PA-C Work Phone: [facility] 03-19-2024 12:43-0400 Body mass index (BMI) [Ratio] 31.47 kg/m2 Mamie Baxter PA-C Work Phone: [facility] 03-19-2024 12:43-0400 Body temperature 97.2 [degF] Mamie Baxter PA-C Work Phone: [facility] 03-19-2024 12:43-0400 Body weight 93.89 kg Mamie Baxter PA-C Work Phone: [facility] 03-19-2024 12:43-0400 Diastolic blood pressure 68 mm[Hg] Mamie Baxter PA-C Work Phone: [facility] 03-19-2024 12:43-0400 Heart rate 80 /min Mamie Baxter PA-C Work Phone: [facility] 03-19-2024 12:43-0400 Respiratory rate 16 /min Mamie Baxter PA-C Work Phone: [facility] 03-19-2024 12:43-0400 Systolic blood pressure 112 mm[Hg] Mamie Baxter PA-C Work Phone: [facility] 01-16-2024 13:30-0400 Body mass index (BMI) [Ratio] 34.21 kg/m2 Mamie Baxter PA-C Work Phone: [facility] 01-16-2024 13:30-0400 Body temperature 97.59 [degF] Mamie Baxter PA-C Work Phone: [facility] 01-16-2024 13:30-0400 Body weight 102.06 kg Mamie Baxter PA-C Work Phone: [facility] 01-16-2024 13:30-0400 Diastolic blood pressure 78 mm[Hg] Mamie Baxter PA-C Work Phone: [facility] 01-16-2024 13:30-0400 Heart rate 81 /min Mamie Baxter PA-C Work Phone: [facility] 01-16-2024 13:30-0400 Respiratory rate 16 /min Mamie Baxter PA-C Work Phone: [facility] 01-16-2024 13:30-0400 SaO2% (BldA) [Mass fraction] 98 % Mamie Baxter PA-C Work Phone: [facility] 01-16-2024 13:30-0400 Systolic blood pressure 110 mm[Hg] Mamie Baxter PA-C Work Phone: [facility] 06-28-2023 15:52-0400 Body weight 102.06 kg Christian Boyce MD Work Phone: [facility] 06-28-2023 15:52-0400 Diastolic blood pressure 72 mm[Hg] Christian Boyce MD Work Phone: [facility] 06-28-2023 15:52-0400 Systolic blood pressure 120 mm[Hg] Christian Boyce MD Work Phone: [facility] 05-06-2023 12:39-0400 Body temperature 97.1 [degF] [facility] 05-06-2023 12:39-0400 Diastolic blood pressure 65 mm[Hg] [facility] 05-06-2023 12:39-0400 Heart rate 76 /min [facility] 05-06-2023 12:39-0400 Respiratory rate 18 /min [facility] 05-06-2023 12:39-0400 Systolic blood pressure 117 mm[Hg] [facility] 05-06-2023 09:00-0400 SaO2% (BldA) [Mass fraction] 97 % [facility] 05-04-2023 15:59-0400 Body height 172.72 cm [facility] 05-04-2023 15:59-0400 Body mass index (BMI) [Ratio] 37.5 kg/m2 [facility] 05-04-2023 15:59-0400 Body weight 112 kg [facility] 05-01-2023 15:41-0400 Body weight 111.58 kg Nst Wstr Work Phone: [facility] 05-01-2023 15:41-0400 Diastolic blood pressure 81 mm[Hg] Nst Wstr Work Phone: [facility] 05-01-2023 15:41-0400 Systolic blood pressure 118 mm[Hg] Nst Wstr Work Phone: [facility] 04-28-2023 11:39-0400 Body weight 109.77 kg Rukhsana Mckinnon MD Work Phone: [facility] 04-28-2023 11:39-0400 Diastolic blood pressure 70 mm[Hg] Rukhsana Mckinnon MD Work Phone: [facility] 04-28-2023 11:39-0400 Systolic blood pressure 112 mm[Hg] Rukhsana Mckinnon MD Work Phone: [facility] 04-26-2023 15:08-0400 Body height 172.[address] [facility] 04-26-2023 15:08-0400 Body weight 108.[address] [facility] 04-24-2023 15:08-0400 Body weight 109.5 kg Nst Wstr Work Phone: [facility] 04-24-2023 15:08-0400 Diastolic blood pressure 72 mm[Hg] Nst Wstr Work Phone: [facility] 04-24-2023 15:08-0400 Systolic blood pressure 120 mm[Hg] Nst Wstr Work Phone: [facility] 04-17-2023 13:34-0400 Body weight 110.5 kg Christian Boyce MD Work Phone: [facility] 04-17-2023 13:34-0400 Diastolic blood pressure 72 mm[Hg] Christian Boyce MD Work Phone: [facility] 04-17-2023 13:34-0400 Systolic blood pressure 122 mm[Hg] Christian Boyce MD Work Phone: [facility] 04-16-2023 18:01-0400 Diastolic blood pressure 78 mm[Hg] [facility] 04-16-2023 18:01-0400 Heart rate 76 /min [facility] 04-16-2023 18:01-0400 Systolic blood pressure 135 mm[Hg] [facility] 04-16-2023 16:59-0400 Body height 172.72 cm [facility] 04-16-2023 16:59-0400 Body mass index (BMI) [Ratio] 37.1 kg/m2 [facility] 04-16-2023 16:59-0400 Body weight 110.8 kg [facility] 04-16-2023 16:45-0400 Body temperature 97.9 [degF] [facility] 04-12-2023 14:29-0400 Body height 172.[address] [facility] 04-12-2023 14:29-0400 Body weight 108.[address] [facility] 04-05-2023 15:34-0400 Body weight 108.86 kg Christian Boyce MD Work Phone: [facility] 04-05-2023 15:34-0400 Diastolic blood pressure 70 mm[Hg] Christian Boyce MD Work Phone: [facility] 04-05-2023 15:34-0400 Systolic blood pressure 110 mm[Hg] Christian Boyce MD Work Phone: [facility] 03-14-2023 14:03-0400 Body weight 107.96 kg Kristen Farr PROCUREMENT TECHNICIAN.CNM Work Phone: [facility] 03-14-2023 14:03-0400 Diastolic blood pressure 70 mm[Hg] Kristen Farr PROCUREMENT TECHNICIAN.CNM Work Phone: [facility] 03-14-2023 14:03-0400 Systolic blood pressure 116 mm[Hg] Kristen Farr PROCUREMENT TECHNICIAN.CNM Work Phone: [facility] 03-01-2023 14:35-0400 Body weight 107.96 kg Christian Boyce MD Work Phone: [facility] 03-01-2023 14:35-0400 Diastolic blood pressure 70 mm[Hg] Christian Boyce MD Work Phone: [facility] 03-01-2023 14:35-0400 Systolic blood pressure 110 mm[Hg] Christian Boyce MD Work Phone: [facility] 01-04-2023 15:32-0400 Body weight 102.06 kg Christian Boyce MD Work Phone: [facility] 01-04-2023 15:32-0400 Diastolic blood pressure 70 mm[Hg] Christian Boyce MD Work Phone: [facility] 01-04-2023 15:32-0400 Systolic blood pressure 108 mm[Hg] Christian Boyce MD Work Phone: [facility] 12-08-2022 14:51-0400 Body weight 102.24 kg Christian Boyce MD Work Phone: [facility] 12-08-2022 14:51-0400 Diastolic blood pressure 80 mm[Hg] Christian Boyce MD Work Phone: [facility] 12-08-2022 14:51-0400 Systolic blood pressure 120 mm[Hg] Christian Boyce MD Work Phone: [facility] 11-11-2022 11:28-0500 Body temperature 97.5 [degF] Mamie Baxter PA-C Work Phone: [facility] 11-11-2022 11:28-0500 Body weight 102.51 kg Mamie Baxter PA-C Work Phone: [facility] 11-11-2022 11:28-0500 Diastolic blood pressure 82 mm[Hg] Mamie Baxter PA-C Work Phone: [facility] 11-11-2022 11:28-0500 Heart rate 99 /min Mamie Baxter PA-C Work Phone: [facility] 11-11-2022 11:28-0500 Respiratory rate 18 /min Mamie Baxter PA-C Work Phone: [facility] 11-11-2022 11:28-0500 SaO2% (BldA) [Mass fraction] 98 % Mamie Baxter PA-C Work Phone: [facility] 11-11-2022 11:28-0500 Systolic blood pressure 114 mm[Hg] Mamie Baxter PA-C Work Phone: [facility] 11-10-2022 14:33-0500 Body weight 102.06 kg Rukhsana Mckinnon MD Work Phone: [facility] 11-10-2022 14:33-0500 Diastolic blood pressure 62 mm[Hg] Rukhsana Mckinnon MD Work Phone: [facility] 11-10-2022 14:33-0500 Systolic blood pressure 98 mm[Hg] Rukhsana Mckinnon MD Work Phone: [facility] 11-08-2022 10:00-0500 Body temperature 97.3 [degF] Justin Colin PROCUREMENT TECHNICIAN.ELEVATOR SERVICE MECHANIC Work Phone: [facility] 11-08-2022 10:00-0500 Body weight 103.42 kg Justin Colin PROCUREMENT TECHNICIAN.ELEVATOR SERVICE MECHANIC Work Phone: [facility] 11-08-2022 10:00-0500 Diastolic blood pressure 72 mm[Hg] Justin Colin PROCUREMENT TECHNICIAN.ELEVATOR SERVICE MECHANIC Work Phone: [facility] 11-08-2022 10:00-0500 Heart rate 116 /min Justin Colin PROCUREMENT TECHNICIAN.ELEVATOR SERVICE MECHANIC Work Phone: [facility] 11-08-2022 10:00-0500 Respiratory rate 16 /min Justin Colin PROCUREMENT TECHNICIAN.ELEVATOR SERVICE MECHANIC Work Phone: [facility] 11-08-2022 10:00-0500 SaO2% (BldA) [Mass fraction] 98 % Justin Colin PROCUREMENT TECHNICIAN.ELEVATOR SERVICE MECHANIC Work Phone: [facility] 11-08-2022 10:00-0500 Systolic blood pressure 110 mm[Hg] Justin Colin PROCUREMENT TECHNICIAN.ELEVATOR SERVICE MECHANIC Work Phone: [facility] 10-21-2022 14:25-0500 Body height 172.72 cm [facility] 10-21-2022 14:25-0500 Diastolic blood pressure 75 mm[Hg] [facility] 10-21-2022 14:25-0500 Heart rate 81 /min [facility] 10-21-2022 14:25-0500 Respiratory rate 16 /min [facility] 10-21-2022 14:25-0500 SaO2% (BldA) [Mass fraction] 97 % [facility] 10-21-2022 14:25-0500 Systolic blood pressure 118 mm[Hg] [facility] 10-10-2022 14:09-0500 Body weight 104.78 kg Christian Boyce MD Work Phone: [facility] 10-10-2022 14:09-0500 Diastolic blood pressure 70 mm[Hg] Christian Boyce MD Work Phone: [facility] 10-10-2022 14:09-0500 Systolic blood pressure 114 mm[Hg] Christian Boyce MD Work Phone: [facility] 09-30-2022 14:22-0500 Body weight 103.87 kg Rosettewilly Thomas PROCUREMENT TECHNICIAN.ELEVATOR SERVICE MECHANIC Work Phone: [facility] 09-30-2022 14:22-0500 Diastolic blood pressure 72 mm[Hg] Rosette Thomas PROCUREMENT TECHNICIAN.ELEVATOR SERVICE MECHANIC Work Phone: [facility] 09-30-2022 14:22-0500 Heart rate 80 /min Rosette Ashutoshoble PROCUREMENT TECHNICIAN.ELEVATOR SERVICE MECHANIC Work Phone: [facility] 09-30-2022 14:22-0500 Respiratory rate 14 /min Rosette Martha PROCUREMENT TECHNICIAN.ELEVATOR SERVICE MECHANIC Work Phone: [facility] 09-30-2022 14:22-0500 Systolic blood pressure 110 mm[Hg] Rosette Thomas PROCUREMENT TECHNICIAN.ELEVATOR SERVICE MECHANIC Work Phone: [facility] 04-26-2022 13:46-0400 Body weight 105.69 kg Lynda Melo PROCUREMENT TECHNICIAN.ELEVATOR SERVICE MECHANIC Work Phone: [facility] 04-26-2022 13:46-0400 Diastolic blood pressure 74 mm[Hg] Lynda Melo PROCUREMENT TECHNICIAN.ELEVATOR SERVICE MECHANIC Work Phone: [facility] 04-26-2022 13:46-0400 Systolic blood pressure 108 mm[Hg] Lynda Melo PROCUREMENT TECHNICIAN.ELEVATOR SERVICE MECHANIC Work Phone: [facility] 01-04-2022 16:14-0400 Body weight 105.69 kg Rukhsana Mckinnon MD Work Phone: [facility] 01-04-2022 16:14-0400 Diastolic blood pressure 76 mm[Hg] Rukhsana Mckinnon MD Work Phone: [facility] 01-04-2022 16:14-0400 Systolic blood pressure 108 mm[Hg] Rukhsana Mckinnon MD Work Phone: [facility] 04-29-2019 07:57-0400 Body Temperature 98.2 [degF] Nishant Harmon [facility], [place] 04-29-2019 07:57-0400 BP Diastolic 66 mm[Hg] Nishant Harmon [place], [place] 04-29-2019 07:57-0400 BP Systolic 102 mm[Hg] Nishant Harmon [place], [place] 04-29-2019 07:57-0400 Pulse (Heart Rate) 88 /min Nishant [facility], [place] 04-29-2019 07:57-0400 Pulse Oximetry 97 % Nishant [place], [place] 04-29-2019 07:57-0400 Respiratory Rate 17 /min Nishant Harmon [place], [place] 04-28-2019 23:46-0400 BMI (Body Mass Index) 25.85 kg/m2 Nishant [place], [place] 04-28-2019 23:46-0400 Body weight 77.11 kg Nishant [place], [place] 04-28-2019 23:33-0400 Height 172.7 cm [place] Comment on above: from sabina bentley 04-28-2019 17:33-0400 BP Diastolic 80 mm[Hg] [place] 04-28-2019 17:33-0400 BP Systolic 128 mm[Hg] [place], [place] 04-28-2019 17:33-0400 Pulse (Heart Rate) 86 /min [place], [place] 04-28-2019 17:33-0400 Pulse Oximetry 100 % [facility] , [place] 04-28-2019 17:33-0400 Respiratory Rate 16 /min [facility], [place] 04-28-2019 15:15-0400 Body Temperature 97.11 [degF] [place], [place] 04-28-2019 15:14-0400 BMI (Body Mass Index) 25.85 kg/m2 [facility] 04-28-2019 15:14-0400 Body weight 77.11 kg Ajay [facility] 04-28-2019 15:14-0400 Height 172.7 cm [facility] Encounters Encounter Date Encounter Type Care Provider Facility Start: 04-07-2025 End: 04-07-2025 [facility] Kalyani Rios APRN.CNP Work Phone: Psychiatry Comment on above: Panic disorder with agoraphobia (Primary Dx); Moderate episode of recurrent major depressive disorder (HCC); Encounter for long-term (current) use of medications; Psychosocial stressors; Vapes nicotine containing substance; 39 weeks gestation of (HCC) Start: 04-07-2025 End: 04-07-2025 [facility] Facility:[facility] Start: 04-02-2025 End: 04-02-2025 Patient encounter procedure Christian Boyce MD Work Phone: OB/Gynecology Comment on above: Supervision of high risk , antepartum (HCC) (Primary Dx); Calculus of gallbladder with cholecystitis without biliary obstruction, unspecified cholecystitis acuity; Anemia during in third trimester (HCC); Anxiety during (HCC); History of hepatitis C; 38 weeks gestation of (HCC) Start: 04-02-2025 End: 04-02-2025 [facility] Facility:[facility] Start: 03-31-2025 End: 03-31-2025 ambulatory Masterkofi Armendariz MA [facility] Start: 03-31-2025 End: 03-31-2025 Patient encounter procedure Master Armendariz MA [facility] Comment on above: Population Health Na vigation Outreach (Ob/peds) Start: 03-24-2025 End: 03-24-2025 Patient encounter procedure Kervin Ovalle APRN.CNM Work Phone: OB/Gynecology Comment on above: 37 weeks gestation o f (HCC) (Primary Dx); Calculus of gallbladder with cholecystitis without biliary obstruction, unspecified cholecystitis acuity; Heartburn during in third trimester (HCC); Vaginal odor; Supervision of high risk , antepartum ([facility]) Start: 03-24-2025 End: 03-24-2025 ambulatory NEWTON TOVAR Facility:[facility] Start: 03-20-2025 End: 03-20-2025 Patient encounter procedure Kervin Ovalle APRN.CNTramaine Work Phone: OB/Gynecology Comment on above: 36 weeks gestation o f (HCC) (Primary Dx); Calculus of gallbladder with cholecystitis without biliary obstruction, unspecified cholecystitis acuity; Heartburn during in third trimester (HCC); Supervision of high risk , antepartum ([facility]) Start: 03-20-2025 End: 03-20-2025 [facility] Facility:[facility] Start: 03-20-2025 End: 03-20-2025 Office consultation new/estab patient 40 min Oracio Miles DO Work Phone: General Surgery Comment on above: Biliary colic (Prima ry Dx); Symptomatic cholelithiasis; Gravid uterus at term size (HCC) Start: 03-20-2025 End: 03-20-2025 [facility] Facility:[facility] Start: 03-18-2025 End: 03-19-2025 Telephone encounter Rukhsana Mckinnon MD Work Phone: OB/Gynecology Comment on above: Orders Start: 03-17-2025 End: 03-18-2025 ambulatory Kristen Farr [facility] Start: 03-17-2025 End: 03-18-2025 Patient encounter procedure Kristen Farr CNM -[facility] Work Phone: Start: 03-05-2025 End: 03-05-2025 Patient encounter procedure Kervin Ovalle APRN.RICKYM Work Phone: OB/Gynecology Comment on above: 34 weeks gestation o f (HCC) (Primary Dx); Heartburn during in third trimester (HCC); Anxiety during (HCC); History of hepatitis C Start: 03-05-2025 End: 03-05-2025 ambulatory NEWTON TOVAR Facility:[facility] Start: 02-21-2025 End: 02-21-2025 Telephone encounter Vincent Thomas MD Work Phone: OB/Gynecology Comment on above: Movement Start: 02-17-2025 End: 02-17-2025 Telemedicine consultation with patient Kalyani Sabajluis VARGAS.ELEVATOR SERVICE MECHANIC Work Phone: Psychiatry Start: 02-17-2025 End: 02-19-2025 ambulatory Kalyani Vann Jo PROCUREMENT TECHNICIAN.ELEVATOR SERVICE MECHANIC Work Phone: Psychiatry Comment on above: NO SHOW (Primary Dx) Start: 02-17-2025 End: 02-19-2025 Patient encounter procedure Kalyani Vann Jo PROCUREMENT TECHNICIAN.ELEVATOR SERVICE MECHANIC Work Phone: Psychiatry Comment on above: Missed appointment Start: 02-17-2025 End: 02-17-2025 Telephone encounter Eleanor Rocha RN Maternal Medicine Comment on above: Supervisor Asbestos Removal - O ther (PRAF) Start: 02-14-2025 End: 02-14-2025 Patient encounter procedure Christian Boyce MD Work Phone: OB/Gynecology Comment on above: Supervision of high risk , antepartum (HCC) (Primary Dx); Heartburn during in third trimester (HCC); Anxiety during (HCC); History of hepatitis C; Maternal care for tachycardia during (HCC); Anemia during in third trimester (HCC); 31 weeks gestation of (HCC); Need for vaccination Start: 02-14-2025 End: 02-14-2025 ambulatory NEWTON TOVAR Facility:[facility] Start: 01-30-2025 End: 04-01-2025 Follow-up encounter Vincent Thomas MD Work Phone: OB/Gynecology Start: 01-29-2025 End: 01-29-2025 Patient encounter procedure Kervin Ovalle APRN.CNM Work Phone: OB/Gynecology Comment on above: 29 weeks gestation o f (HCC) (Primary Dx); Supervision of high risk in second trimester (HCC); History of hepatitis C; History of depression; Vapes nicotine containing substance; Anxiety during (HCC); History of gestational diabetes Start: 01-29-2025 End: 01-29-2025 ambulatory [facility] Facility:[facility] Start: 01-26-2025 End: 01-26-2025 Patient encounter procedure Chichi Bell APRN.CNP Work Phone: [facility] Comment on above: Acute non-recurrent pansinusitis (Primary Dx) Start: 01-26-2025 End: 01-26-2025 ambulatory CHICHI BELL Facility:[facility] Start: 12-27-2024 End: 12-27-2024 ambulatory NEWTON Julio TOVAR Facility:[facility] Start: 12-27-2024 End: 12-27-2024 Patient encounter procedure Vincent Thomas MD Work Phone: OB/Gynecology Comment on above: Screening for diabet es mellitus (Primary Dx); 24 weeks gestation of ([facility]); Supervision of high risk in second trimester ([facility]) Start: 12-24-2024 End: 12-24-2024 ambulatory [facility] Facility:[facility] Start: 12-24-2024 End: 12-24-2024 [facility] Kalyani Rios APRN.MONICA Work Phone: Psychiatry Comment on above: Recurrent major depr essive disorder, in partial remission (Primary Dx); Panic disorder with agoraphobia; Encounter for long-term (current) use of medications; Attention and concentration deficit; Heroin use disorder, severe, in sustained remission, dependence (HCC) Start: 12-16-2024 End: 12-17-2024 Refill Kalyani Rios APRN.CNP Work Phone: Psychiatry Comment on above: Refill Request Start: 12-05-2024 End: 12-05-2024 ambulatory Kalyani Rios APRN.CNP Work Phone: Psychiatry Comment on above: NO SHOW (Primary Dx) Start: 12-05-2024 End: 12-05-2024 Telemedicine consultation with patient Kaylani Rios APRN.CNP Work Phone: Psychiatry Start: 12-02-2024 End: 12-02-2024 Telephone encounter Eleanor Rocha RN Maternal Medicine Comment on above: Supervisor Asbestos Removal - O ther (PRAF) Start: 11-29-2024 End: 11-29-2024 [facility] Start: 11-29-2024 End: 11-29-2024 Patient encounter procedure Kervin Ovalle APRN.CNM Work Phone: OB/Gynecology Comment on above: Supervision of high risk in second trimester (Primary Dx); History of gestational diabetes in prior , currently ; History of hepatitis C; History of depression; Vapes nicotine containing substance; 20 weeks gestation of Encounter for anatomic survey (Primary Dx); 20 weeks gestation of ; Supervision of high risk , antepartum; History of gestational diabetes in prior , currently ; History of intravenous drug use in remission; History of depression; History of hepatitis C Start: 11-20-2024 End: 11-20-2024 ambulatory Christian Boyce MD Work Phone: OB/Gynecology Comment on above: Prescription request for breast pump Start: 11-01-2024 End: 11-01-2024 [facility] Start: 11-01-2024 End: 11-01-2024 Patient encounter procedure Rukhsana Mckinnon MD Work Phone: OB/Gynecology Comment on above: Supervision of high risk in second trimester (Primary Dx); History of gestational diabetes in prior , currently ; History of hepatitis C; History of intravenous drug use in remission; 16 weeks gestation of Start: 10-16-2024 End: 10-17-2024 Refill Kalyani Rios APRN.ELEVATOR SERVICE MECHANIC Work Phone: Psychiatry Comment on above: Refill Request Start: 10-05-2024 End: 10-05-2024 [facility] Start: 10-04-2024 End: 10-04-2024 [facility] Start: 10-04-2024 End: 10-04-2024 Patient encounter procedure Rukhsana Mckinnon MD Work Phone: OB/Gynecology Comment on above: 12 weeks gestation o f (Primary Dx); Supervision of high risk , antepartum Encounter for medhata aracely screening for malformation using ultrasound (Primary Dx); 12 weeks gestation of Start: 09-24-2024 End: 09-24-2024 Telephone encounter Michelle Beltrán RN Obstetrics/Gynecolog y Comment on above: PRAF (Initial PRAF) Start: 09-20-2024 End: 09-20-2024 ambulatory [facility] Facility:[facility] Start: 09-20-2024 End: 09-20-2024 Patient encounter procedure Zena Fontenot APRN.ELEVATOR SERVICE MECHANIC Work Phone: OB/Gynecology Comment on above: Supervision of high risk , antepartum (Primary Dx); 10 weeks gestation of ; with uncertain dates in first trimester; History of gestational diabetes in prior , currently ; History of intravenous drug use in remission; History of depression; History of hepatitis C; Vapes nicotine containing substance; Anxiety during ; Screening for cervical cancer; Screening for HPV (human papillomavirus); Attention deficit hyperactivity disorder (ADHD), unspecified ADHD type; Nausea and vomiting during ; Constipation during in first trimester; headache in first trimester; History of joint pain; Heartburn during in first trimester Start: 09-04-2024 End: 09-08-2024 ambulatory Joshua Gaytan RN [facility] Obstetrics and Gynecology Comment on above: [place] Start: 08-27-2024 End: 08-27-2024 ambulatory [facility] TOVAR Facility:[facility] Start: 08-27-2024 End: 08-27-2024 Office outpatient visit 25 minutes Kalyani Rios APRN.ELEVATOR SERVICE MECHANIC Work Phone: Psychiatry Comment on above: Moderate episode of recurrent major depressive disorder (HCC) (Primary Dx); Panic disorder with agoraphobia; Encounter for long-term (current) use of medications; Heroin use disorder, severe, in sustained remission, dependence (HCC); Vapes nicotine containing substance; Attention and concentration deficit Start: 08-27-2024 End: 08-27-2024 ambulatory NEWT[facility] TOVAR Facility:[facility] Start: 07-17-2024 End: 07-17-2024 Telephone encounter Mamie Baxter PA-C Work Phone: [facility] Comment on above: Results Start: 07-16-2024 End: 07-16-2024 Telephone encounter Mamie Baxter PA-C [facility] Comment on above: Rheumatology Referra l Start: 07-16-2024 End: 07-16-2024 ambulatory [facility] Facility[facility] Start: 07-16-2024 End: 07-16-2024 Patient encounter procedure Mamie Baxter PA-C Work Phone: [facility] Comment on above: Hip dysplasia, acqui red, right (Primary Dx); Chronic pain of both hips; Encounter for lipid screening for cardiovascular disease Start: 07-01-2024 End: 07-01-2024 Refill Kalyani Rios APRN.ELEVATOR SERVICE MECHANIC Work Phone: Psychiatry Comment on above: Refill Request Medication Problem Start: 06-25-2024 End: 06-25-2024 ambulatory Dyana Collazo PT [facility] Comment on above: Chronic pain of both hips (Primary Dx) Start: 06-17-2024 End: 06-17-2024 [facility] Start: 06-17-2024 End: 06-17-2024 Patient encounter procedure August Canales MD Work Phone: Orthopaedics Comment on above: Chronic pain of both hips; Hip dysplasia, acquired, right Start: 05-23-2024 End: 05-23-2024 ambulatory Dyana Collazo PT [facility] Comment on above: Chronic pain of both hips (Primary Dx) Start: 05-19-2024 End: 05-30-2024 Refill Kalyani Rios PROCUREMENT TECHNICIAN.ELEVATOR SERVICE MECHANIC Work Phone: Psychiatry Comment on above: Refill Request Start: 05-06-2024 End: 05-06-2024 Telephone encounter Mamie Baxter PA-C Work Phone: [facility] Comment on above: Results Start: 05-03-2024 End: 05-03-2024 ambulatory Dyana Collazo PT [facility] Comment on above: Chronic pain of both hips (Primary Dx) Start: 05-02-2024 Refill Kalyani ventura APRN.CNP Work Phone: Psychiatry Comment on above: Refill Request Start: 04-30-2024 End: 04-30-2024 ambulatory NEWT[facility] TOVAR Facility:[facility] Start: 04-30-2024 End: 04-30-2024 Subsequent hospital visit by physician [facility] Luis Angel Simpson Work Phone: Radiology Comment on above: Chronic pain of both hips [M25.551, M25.552, G89.29] Start: 03-19-2024 End: 03-19-2024 Patient encounter procedure Mamie Baxter PA-C Work Phone: Family Medicine Luis Angel Comment on above: Chronic pain of both hips (Primary Dx) Start: 03-04-2024 End: 03-04-2024 [facility] Kalyani Rios APRN.MONICA Work Phone: Psychiatry Comment on above: Encounter for long-t erm (current) use of medications (Primary Dx); Moderate episode of recurrent major depressive disorder (HCC); Panic disorder with agoraphobia; Heroin use disorder, severe, in sustained remission, dependence (HCC) Start: 02-26-2024 Refill Kalyani ventura APRN.CNP Work Phone: Psychiatry Comment on above: Refill Request Start: 02-21-2024 End: 02-21-2024 ambulatory Mamie Baxter PA-C Work Phone: Family [place] Comment on above: Superficial partial thickness burn of forearm (Primary Dx) Start: 02-21-2024 End: 02-21-2024 Telemedicine consultation with patient Mamie Baxter PA-C Work Phone: Family [place] Start: 02-04-2024 Refill Kalyani ventura APRN.CNP Work Phone: Psychiatry Comment on above: Refill Request Start: 01-16-2024 End: 01-16-2024 Patient encounter procedure Mamie Baxter PA-C Work Phone: Family Medicine [place] Angel Comment on above: Keratosis pilaris (P rimary Dx); Eczema, unspecified type Start: 01-07-2024 ambulatory Christian Boyce MD Work Phone: OB/Gynecology Comment on above: Glucose test Start: 01-01-2024 End: 01-01-2024 [facility] Kalyani J Jo PROCUREMENT TECHNICIAN.ELEVATOR SERVICE MECHANIC Work Phone: Psychiatry Comment on above: Panic disorder with agoraphobia (Primary Dx); Recurrent major depressive disorder, in partial remission (HCC); Heroin use disorder, severe, in sustained remission, dependence (HCC) Start: 12-28-2023 Refill [facility] Saray u PROCUREMENT TECHNICIAN.ELEVATOR SERVICE MECHANIC Work Phone: Psychiatry Comment on above: Refill Request Start: 11-27-2023 End: 11-27-2023 [facility] Jo PROCUREMENT TECHNICIAN.[facility] Work Phone: Psychiatry Comment on above: Panic disorder with agoraphobia (Primary Dx); Moderate episode of recurrent major depressive disorder (HCC); Heroin use disorder, severe, in sustained remission, dependence (HCC) Start: 10-31-2023 Telephone encounter Eleanor ramsey [facility] Work Phone: Psychology Comment on above: consult Start: 10-30-2023 End: 10-30-2023 [facility] Kalyani J Jo PROCUREMENT TECHNICIAN.[facility] Work Phone: Psychiatry Comment on above: Panic disorder with agoraphobia (Primary Dx); Moderate episode of recurrent major depressive disorder (HCC); Heroin use disorder, severe, in sustained remission, dependence (HCC) Start: 10-24-2023 End: 10-24-2023 [facility] Mamie Baxter PA-C Work Phone: Family Medicine [place] Comment on above: Moderate episode of recurrent major depressive disorder (HCC) consult Start: 09-27-2023 Telephone encounter Newton Tovar MD Work Phone: [address] [place] [address] Comment on above: Opened In Error Start: 06-28-2023 End: 06-28-2023 Patient encounter procedure Christian Boyce MD Work Phone: OB/Gynecology Comment on above: care and examination (Primary Dx); Vaginal discharge; Urinary frequency; History of gestational diabetes Start: 05-08-2023 Telephone encounter Kervin mcgowan APRN.CNM Work Phone: OB/Gynecology Comment on above: Patient Question Start: 05-05-2023 ambulatory Christian Boyce MD Work Phone: OB/Gynecology Start: 05-04-2023 End: 05-06-2023 Evaluation and management of inpatient [facility] Work Phone: Start: 05-04-2023 End: 05-04-2023 Patient encounter procedure Rukhsana Mckinnon MD Work Phone: OB/Gynecology Comment on above: Supervision of high risk in third trimester (Primary Dx); Insulin controlled gestational diabetes mellitus (GDM) in third trimester; 37 weeks gestation of Start: 05-04-2023 End: 05-04-2023 Patient encounter procedure [employer] [place] [facility] Work Phone: OB/Gynecology Comment on above: Insulin controlled g estational diabetes mellitus (GDM) in third trimester (Primary Dx); 37 weeks gestation of Start: 05-01-2023 End: 05-01-2023 Patient encounter procedure Kervin Ovalle APRN.CNM Work Phone: OB/Gynecology Comment on above: Supervision of high risk in third trimester (Primary Dx); Insulin controlled gestational diabetes mellitus (GDM) in third trimester; 36 weeks gestation of Start: 04-28-2023 End: 04-28-2023 Patient encounter procedure Rukhsana Mckinnon MD Work Phone: OB/Gynecology Comment on above: Insulin controlled g estational diabetes mellitus (GDM) in third trimester (Primary Dx); Supervision of high risk in third trimester; 36 weeks gestation of Start: 04-26-2023 End: 04-26-[address] Nutrition Therapy Comment on above: Diet controlled gest ational diabetes mellitus (GDM) in third trimester (Primary Dx); Dietary counseling Start: 04-26-2023 End: 04-26-2023 Telemedicine consultation with patient Valarie Potter RD [facility] Start: 04-24-2023 End: 04-24-2023 Patient encounter procedure Kervin Ovlale APRN.CNM Work Phone: OB/Gynecology Comment on above: 35 weeks gestation o f (Primary Dx) Start: 04-18-2023 ambulatory Christian Boyce MD Work Phone: OB/Gynecology Comment on above: Insulin Start: 04-17-2023 End: 04-17-2023 Patient encounter procedure Christian Boyce MD Work Phone: OB/Gynecology Comment on above: Insulin controlled g estational diabetes mellitus (GDM) in third trimester (Primary Dx); 34 weeks gestation of Start: 04-16-2023 End: 04-16-2023 ambulatory [facility] Work Phone: Start: 04-16-2023 End: 04-16-2023 Patient encounter procedure [facility] Work Phone: Start: 04-12-2023 End: 04-12-[address] Nutrition Therapy Comment on above: Diet controlled gest ational diabetes mellitus (GDM) in third trimester (Primary Dx); 33 weeks gestation of ; Dietary counseling Start: 04-12-2023 End: 04-12-2023 Telemedicine consultation with patient Valarie Potter RD [facility] Start: 04-05-2023 End: 04-05-2023 Patient encounter procedure Christian Boyce MD Work Phone: OB/Gynecology Comment on above: Gestational diabetes mellitus, class A1 (Primary Dx); Supervision of high risk , antepartum; Obesity in ; 33 weeks gestation of Encounter for ultras ound to check growth (Primary Dx); Obesity affecting in second trimester; 33 weeks gestation of ; Other obesity due to excess calories affecting in second trimester; Supervision of high risk , antepartum; Gestational diabetes mellitus, class A1 Start: 03-14-2023 ambulatory Kristen Farr APRN.CNM Work Phone: OB/Gynecology Comment on above: Test kit Start: 03-14-2023 End: 03-14-2023 Patient encounter procedure Kristen Yordan SETH Work Phone: OB/Gynecology Comment on above: 29 weeks gestation o f (Primary Dx); Gestational diabetes mellitus, class A1 Start: 03-01-2023 End: 03-01-2023 Patient encounter procedure Christian Boyce MD Work Phone: OB/Gynecology Comment on above: Supervision of high risk , antepartum (Primary Dx); Vaginal discharge in in third trimester; History of hepatitis C; 28 weeks gestation of ; Need for vaccination; History of gestational diabetes in prior , currently Start: 01-04-2023 End: 01-04-2023 Patient encounter procedure Christian Boyce MD Work Phone: OB/Gynecology Comment on above: History of gestation al diabetes in prior , currently (Primary Dx); History of hepatitis C; 20 weeks gestation of Start: 12-08-2022 End: 12-08-2022 Patient encounter procedure Christian Boyce MD Work Phone: OB/Gynecology Comment on above: Supervision of high risk in second trimester (Primary Dx); History of hepatitis C; History of gestational diabetes in prior , currently ; History of intravenous drug use in remission; 16 weeks gestation of Start: 11-16-2022 Telephone encounter Amina sutton MD Work Phone: Maternal Medicine Comment on above: First Seq Results Start: 11-11-2022 End: 11-11-2022 Patient encounter procedure Mamie Baxter PA-C Work Phone: Family Medicine [place] Angel Comment on above: Pharyngitis, unspeci fied etiology (Primary Dx) Start: 11-10-2022 End: 11-10-2022 Patient encounter procedure Rukhsana Mckinnon MD Work Phone: OB/Gynecology Comment on above: Encounter for antena aracely screening for nuchal translucency (Primary Dx); Supervision of high risk in first trimester; 12 weeks gestation of Nuchal translucency of fetus on ultrasound (Primary Dx); Early stage of ; History of gestational diabetes in prior , currently ; History of hepatitis C; History of intravenous drug use in remission; Supervision of high risk in first trimester; Obesity in Start: 11-08-2022 End: 11-08-2022 Patient encounter procedure Justin Shaw APRN.ELEVATOR SERVICE MECHANIC Work Phone: [facility] Comment on above: URI, acute (Primary Dx); Sore throat Start: 10-26-2022 Telephone encounter Qi Plummer MD Work Phone: OB/Gynecology Comment on above: OB Blood in Emesis Start: 10-21-2022 End: 10-21-2022 ambulatory [facility] Work Phone: Start: 10-21-2022 End: 10-21-2022 Patient encounter procedure [facility] Start: 10-21-2022 Telephone encounter Vincent laird MD Work Phone: OB/Gynecology Comment on above: Patient Question Start: 10-12-2022 Telephone encounter Kristen Thomas RN Obstetrics/Gynecology Comment on above: Supervisor [employer] - O ther Start: 10-10-2022 End: 10-10-2022 Patient encounter procedure Christian Boyce MD Work Phone: OB/Gynecology Comment on above: Early stage of pregn barbara (Primary Dx); History of gestational diabetes in prior , currently ; History of hepatitis C; History of intravenous drug use in remission; Supervision of high risk in first trimester; Obesity in Start: 10-10-2022 End: 10-10-2022 Patient encounter procedure Christian Boyce MD Work Phone: OB/Gynecology Comment on above: Supervision of high risk in first trimester (Primary Dx); Early stage of ; History of gestational diabetes in prior , currently ; History of hepatitis C; History of intravenous drug use in remission; Obesity in ; Vaginal discharge during in first trimester Start: 10-03-2022 Telephone encounter Rosette dela cruz APRN.ELEVATOR SERVICE MECHANIC Work Phone: [facility] Luis Angel Comment on above: Results Start: 09-30-2022 End: 09-30-2022 Patient encounter procedure Rosette Thomas APRN.ELEVATOR SERVICE MECHANIC Work Phone: [facility] [place] Comment on above: Spasms of the hands or feet (Primary Dx) Start: 09-16-2022 End: 09-16-2022 Nursing evaluation of patient and report Nurse Pnob [facility] Work Phone: OB/Gynecology Comment on above: Supervision of high risk , antepartum (Primary Dx); History of depression; History of gestational diabetes in prior , currently ; Vapes nicotine containing substance; Obesity in ; History of intravenous drug use in remission; Patient request for diagnostic testing Start: 09-16-2022 End: 09-16-2022 Patient requested procedure Nurse Vargas [facility] Work Phone: OB/Gynecology Start: 04-26-2022 End: 04-26-2022 Patient encounter procedure Lynda Melo APRN.[facility] Work Phone: OB/Gynecology Comment on above: Vaginal odor (Primar y Dx); Vaginal discharge Start: 02-04-2022 Telephone encounter Mamie littlejohn PA-C Work Phone: [facility] Comment on above: Patient Question Start: 01-04-2022 End: 01-04-2022 Patient encounter procedure Rukhsana Mckinnon MD Work Phone: OB/Gynecology Comment on above: Vaginal discharge (P rimary Dx); Vaginal odor; Folliculitis Start: 04-28-2019 End: 04-29-2019 Evaluation and management of inpatient Nishant Vann Faustino Work Phone: [facility] TE[facility] Comment on above: Abscess of left arm (Primary Dx) Start: 04-28-2019 End: 04-28-2019 Evaluation and management of inpatient Ajay Redd Hever Work Phone: [facility] ED Start: 01-31-2018 End: 01-31-2018 Emergency department patient visit [facility] Start: 06-01-2017 End: 06-01-2017 Emergency department patient visit KIMI MORENO Facility:B Procedures Date Procedure Procedure Detail Performing Clinician Start: 04-02-2025 Urnls dip stick/tabl et rgnt non-auto w/o micrscp Christian Boyce MD Work Phone: Start: 03-24-2025 Urnls dip stick/tabl et rgnt non-auto w/o micrscp Kervin Plotts PROCUREMENT TECHNICIAN.CNM Work Phone: Start: 03-20-2025 Urnls dip stick/tabl et rgnt non-auto w/o micrscp Kervin Plotts PROCUREMENT TECHNICIAN.CNM Work Phone: Start: 03-18-2025 Ultrasonography of abdomen Kristen Farr CNM Work Phone: Start: 03-17-2025 Estimated creatinine clearance Kristen Farr CNM Work Phone: Start: 03-17-2025 Urnls dip stick/tabl et reagent auto microscopy Kristen Farr CNM Work Phone: Start: 03-05-2025 Urnls dip stick/tabl et rgnt non-auto w/o micrscp Kervin Plotts PROCUREMENT TECHNICIAN.CNM Work Phone: Start: 11-29-2024 Us preg uterus after 1st trimest 1/ gestation Zena Fontenot PROCUREMENT TECHNICIAN.ELEVATOR SERVICE MECHANIC Work Phone: Start: 10-04-2024 Antibody screen [facility] Comment on above: Order Comment: Speci men Type: BLOOD SPECIMENOrdering Facility: [facility] Address: [address] [place] [address] Performed By: #### T SPN ####[facility] BLOOD BANKCLIA [id number] [place] [address] [place] Start: 10-04-2024 Us nuchal gonzales slucency 1st gestation Zena Fontenot PROCUREMENT TECHNICIAN.ELEVATOR SERVICE MECHANIC Work Phone: Start: 09-20-2024 Us uterus l imited 1/> fetuses Zena Fontenot PROCUREMENT TECHNICIAN.ELEVATOR SERVICE MECHANIC Work Phone: Start: 06-28-2023 BACTERIAL VAGINOSIS NAAT Christian Boyce MD Work Phone: Start: 06-28-2023 Iadna trichomonas va ginalis amplified probe tech Christian Boyce MD Work Phone: Start: 06-28-2023 Urnls dip stick/tabl et rgnt auto w/o microscopy Christian Boyce MD Work Phone: Start: 05-04-2023 URINE OB DIP B/O Rukhsana Mckinnon MD Work Phone: Start: 05-04-2023 biophysical pr ofile non-stress testing Christian Boyce MD Work Phone: Start: 05-01-2023 URINE OB DIP B/O Red Ovalle PROCUREMENT TECHNICIAN.CNM Work Phone: Start: 04-28-2023 URINE OB DIP B/O Rukhsana Mckinnon MD Work Phone: Start: 04-24-2023 URINE OB DIP B/O Red Ovalle PROCUREMENT TECHNICIAN.CNM Work Phone: Start: 04-17-2023 URINE OB DIP B/O Christian Boyce MD Work Phone: Start: 04-05-2023 URINE OB DIP B/O Christian Boyce MD Work Phone: Start: 04-05-2023 Us preg uterus after 1st trimest 09/18 gestation Christian Boyce MD Work Phone: Start: 03-14-2023 URINE OB DIP B/O Marc Farr PROCUREMENT TECHNICIAN.CNM Work Phone: Start: 03-01-2023 BACTERIAL VAGINOSIS AMPLIFICATION Christian Boyce MD Work Phone: Start: 03-01-2023 URINE OB DIP B/O Christian Boyce MD Work Phone: Start: 01-04-2023 URINE OB DIP B/O Christian Boyce MD Work Phone: Start: 12-08-2022 URINE OB DIP B/O Christian Boyce MD Work Phone: Start: 11-10-2022 URINE OB DIP B/O Rukhsana Mckinnon MD Work Phone: Start: 11-10-2022 Us nuchal gonzales slucency 1st gestation Christian Boyce MD Work Phone: Start: 10-10-2022 Antibody screen Christian Boyce MD Work Phone: Start: 10-10-2022 BACTERIAL VAGINOSIS AMPLIFICATION Christian Boyce MD Work Phone: Start: 10-10-2022 Iadna trichomonas va ginalis amplified probe tech Christian Boyce MD Work Phone: Start: 10-10-2022 Us uterus l imited 1/> fetuses Christian Boyce MD Work Phone: Start: 05-04-2019 Microscopic examinat ion of blood, culture Comment on above: Order Comment: Speci men Source Comment:Blood Performed By: #### H EMDF, BMP3 #### [facility] [address] [place] [address] Start: 04-29-2019 ADD ON LAB TEST Elvia Bentley Work Phone: Start: 04-29-2019 BASIC METABOLIC PANE L W/ REFLEX TO MG FOR LOW K Nishant Harmon Work Phone: Start: 04-29-2019 Blood count complete auto&auto difrntl wbc Nishant Harmon Work Phone: Start: 04-29-2019 Hepatic function panel Nishant Harmon Work Phone: Start: 04-29-2019 Procalcitonin (pct) Angelito Harmon Work Phone: Start: 04-29-2019 Prothrombin time Nishant Harmon Work Phone: Start: 04-28-2019 Dup-scan xtr veins unilateral/limited study Kurt Ante Up Work Phone: Start: 04-28-2019 Basic metabolic pane l calcium total Kurt [employer] Work Phone: Start: 04-28-2019 Blood count complete auto&auto difrntl wbc Kurt Ante Up Work Phone: Start: 04-28-2019 Radex elbow complete minimum 3 views Kurt Ante Up Work Phone: Plan of Treatment Date Care Activity Detail Author Start: 2066 Respiratory Syncytial Virus Immunization: Risk, 60-74 Risk, or 75+ (1 - 1-dose 75+ series) Respiratory Syncytial Virus Immunization: Risk, 60-74 Risk, or 75+ (1 - 1-dose 75+ series) [facility] Start: 02-14-2035 Urine microalbumin profile DTaP,Tdap,Td Vaccine (4 - Td or Tdap) [facility] Start: 03-01-2033 Tetanus vaccination Tetanus: Every 10yrs [facility] Start: 03-01-2033 Urine microalbumin profile [facility] Start: 03-16-2031 Urine microalbumin profile DTAP,TDAP,TD (2 - Td or Tdap) [facility] Start: 09-20-2029 Screening for malignant neoplasm of cervix Cervical Cancer Screening [facility] Start: 09-16-2025 HPV TESTING HPV TESTING [facility] Start: 09-16-2025 PAP TESTING PAP TESTING [facility] Start: 09-16-2025 Screening for malignant neoplasm of cervix [facility] Start: 07-16-2025 Covid-19 Vaccine ( season) Covid-19 Vaccine ( season) [facility] Comment on above: Postponed from 05/19/2024 (Declined at t his time) Start: 05-19-2025 Influenza vaccination [facility] Start: 05-15-2025 End: 05-15-2025 Patient encounter procedure 05/15/2025 1:00 PM EDT Office Visit General Surgery [address] [address] Oracio Miles DO [address] [place] [address] follow up gallbladder General Surgery Comment on above: follow up gallbladder Start: 05-08-2025 End: 05-08-2025 Follow-up encounter 05/08/2025 11:00 AM EDT [facility] Emergency Department Health Psychiatry [address] [place] [phone] Kalyani Rios, PROCUREMENT TECHNICIAN.ELEVATOR SERVICE MECHANIC [address] [place] [phone] Post follow up Psychiatry Comment on above: Post follow up Start: 04-11-2025 End: 04-11-2025 Patient encounter procedure 04/11/2025 2:30 PM EDT Routine Office Visit OB/Gynecology [address] [place], [place] [id number] Kervin Ovalle APRN.CN [address] [place], [place] [id number] OB OB/Gynecology Comment on above: OB Start: 04-07-2025 End: 04-07-2025 Follow-up encounter 04/07/2025 1:00 PM EDT Distance Health Psychiatry [address] [place] [phone] Kalyani Rios, PROCUREMENT TECHNICIAN.ELEVATOR SERVICE MECHANIC [address] [place] [address] rescheuled from 02/17/25 follow up Psychiatry Comment on above: rescheuled from 02/17/25 follow up Start: 04-02-2025 End: 04-02-2025 Patient encounter procedure 04/02/2025 11:20 AM EDT Routine Office Visit OB/Gynecology [address] [place] [address] Christian Neri MD [address] [place] [address] OB OB/Gynecology Comment on above: OB Start: 03-24-2025 End: 03-24-2025 Patient encounter procedure 03/24/2025 10:30 AM EDT Routine Office Visit OB/Gynecology [address] [place] [address] Kervin Ovalle APRN.CNM [address] [place] [address] OB OB/Gynecology Comment on above: OB Start: 03-20-2025 End: 03-20-2025 Patient encounter procedure 03/20/2025 3:15 PM EDT Routine Office Visit OB/Gynecology [address] [place] [address] Kervin Ovalle APRN.CNM [address] [place] [address] OB OB/Gynecology Comment on above: OB Start: 03-20-2025 End: 03-20-2025 Patient encounter procedure 03/20/2025 8:30 AM EDT Office Visit General Surgery [address] [address] Oracio Miles, [address] [place] [address] Calculus of gallbladder with cholecystitis without biliary obstruction, unspecified cholecystitis acuity [K80.10] General Surgery Comment on above: Calculus of gallbladder with cholecystit is without biliary obstruction, unspecified cholecystitis acuity [K80.10] Start: 03-18-2025 Patient discharge [facility] Start: 03-17-2025 [facility] Start: 03-17-2025 Nonstress test [facility] Start: 03-17-2025 Obstetric monitoring [facility] Start: 03-17-2025 Vital signs measurements [facility] Start: 03-17-2025 [facility] Start: 03-17-2025 Influenza vaccination Influenza Vaccine (#1) [facility] Comment on above: Postponed from 05/19/2024 (Declined at t his time) Start: 03-17-2025 Catheterization of vein [facility] Start: 03-05-2025 End: 03-05-2025 Patient encounter procedure 03/05/2025 11:15 AM EDT Routine Office Visit OB/Gynecology [address] [place] [address] Kervin Ovalle APRN.CN [address] [place] [address] OB OB/Gynecology Comment on above: OB Start: 02-17-2025 End: 02-17-2025 ambulatory 02/17/2025 2:30 PM EDT [facility] Psychiatry [address] [place] [address] Kalyani Rios, PROCUREMENT TECHNICIAN.ELEVATOR SERVICE MECHANIC [address] [place] [address] Psychiatry Start: 02-14-2025 End: 02-14-2025 Patient encounter procedure 02/14/2025 1:30 PM EDT Routine Office Visit OB/Gynecology [address] [place] [address] Christian Neri MD [address] [place] [address] OB OB/Gynecology Comment on above: OB Start: 01-29-2025 End: 01-29-2025 Patient encounter procedure 01/29/2025 11:00 AM EDT Routine Office Visit OB/Gynecology [address] [place] [address] Kervin Ovalle APRN.CN [address] [place] [address] OB OB/Gynecology Comment on above: OB Start: 01-26-2025 End: 04-27-2025 ANEMIA REFLEX PANEL ANEMIA REFLEX PANEL Lab Routine 24 weeks gestation of ([facility]) Supervision of high risk in second trimester ([facility]) Expected: 01/26/2025 (Approximate), Expires: 04/27/2025 [facility] Comment on above: Expected: 01/26/2025 (Approximate), Expi res: 04/27/2025 Start: 01-26-2025 End: 12-27-2025 GESTATIONAL GLUCOSE SCREEN, 1-HOUR, 50 GRAM, NON-FASTING GESTATIONAL GLUCOSE SCREEN, 1-HOUR, 50 GRAM, NON-FASTING Lab Routine Screening for diabetes mellitus 24 weeks gestation of ([facility]) Supervision of high risk in second trimester ([facility]) Expected: 01/26/2025 (Approximate), Expires: 12/27/2025 [facility] Work Phone: Comment on above: Expected: 01/26/2025 (Approximate), Expi res: 12/27/2025 Start: 01-26-2025 End: 12-27-2025 SYPHILIS TREPONEMAL W/REFLEX SYPHILIS TREPONEMAL W/REFLEX Lab Routine 24 weeks gestation of ([facility]) Supervision of high risk in second trimester ([facility]) Expected: 01/26/2025 (Approximate), Expires: 12/27/2025 [facility] Comment on above: Expected: 01/26/2025 (Approximate), Expi res: 12/27/2025 Start: 01-24-2025 End: 01-24-2025 Patient encounter procedure 01/24/2025 10:30 AM EDT Routine Office Visit OB/Gynecology [address] [place] [address] Kervin Ovalle APRN.CN [address] [place] [address] OB OB/Gynecology Comment on above: OB Start: 12-27-2024 End: 12-27-2024 Patient encounter procedure 12/27/2024 10:50 AM EDT Routine Office Visit OB/Gynecology [address] [place] [address] Vincent Thomas MD [address] [place] [address] OB OB/Gynecology Comment on above: OB Start: 12-24-2024 End: 12-24-2024 Letter encounter 12/24/2024 10:00 AM EDT [facility] Psychiatry [address] [place] [phone] Kalyani Rios, PROCUREMENT TECHNICIAN.ELEVATOR SERVICE MECHANIC [address] [place] [id number] No show letter sent. Psychiatry Comment on above: No show letter sent. Start: 12-05-2024 End: 12-05-2024 Patient encounter procedure 12/05/2024 11:20 AM EDT Office Visit OB/Gynecology [address] [place] [id number] Christian Neri MD [address] [place] [id number] Annual Exam OB/Gynecology Comment on above: Annual Exam Start: 12-05-2024 End: 12-05-2024 ambulatory Psychiatry Comment on above: New Evaluation for ADHD New WH Eval Start: 11-29-2024 End: 11-29-2024 Patient encounter procedure OB/Gynecology Comment on above: Anatomy/OB Anatomy Start: 11-01-2024 End: 11-01-2024 Patient encounter procedure 11/01/2024 10:20 AM EST Routine Office Visit OB/Gynecology [address] [place], [place] [id number] Rukhsana Mckinnon MD [address] [place] [id number] OB OB/Gynecology Comment on above: OB Start: 10-22-2024 End: 10-22-2024 Patient encounter procedure 10/22/2024 2:00 PM EST Office Visit Psychiatry [address] [place] [phone] Kalyani Rios, PROCUREMENT TECHNICIAN.ELEVATOR SERVICE MECHANIC [address] [place] [phone] New Evaluation for ADHD Psychiatry Comment on above: New Evaluation for ADHD Start: 10-18-2024 End: 10-18-2024 Patient encounter procedure 10/18/2024 10:20 AM EST Routine Office Visit OB/Gynecology [address] [place] [id number] Vincent Thomas MD [address] [place] [address] OB/Gynecology Comment on above: Start: 10-04-2024 End: 10-04-2024 Patient encounter procedure Maternal Medicine Comment on above: Nuchal Nuchal/ob Start: 09-20-2024 End: 12-20-2024 ANEMIA REFLEX PANEL ANEMIA REFLEX PANEL Lab Routine Supervision of high risk , antepartum History of gestational diabetes in prior , currently History of intravenous drug use in remission History of depression History of hepatitis C Expected: 09/20/2024, Expires: 12/20/2024 [facility] Work Phone: Comment on above: Expected: 09/20/2024, Expires: Start: 09-20-2024 End: 12-20-2024 Comprehensive metabolic 2000 panel - Serum or Plasma COMPREHENSIVE METABOLIC PANEL Lab Routine History of hepatitis C Expected: 09/20/2024, Expires: 12/20/2024 [facility] Comment on above: Expected: 09/20/2024, Expires: Start: 09-20-2024 End: 12-20-2024 Hemoglobin A1c in Blood HEMOGLOBIN A1C Lab Routine Supervision of high risk , antepartum History of gestational diabetes in prior , currently History of intravenous drug use in remission History of depression History of hepatitis C Expected: 09/20/2024, Expires: 12/20/2024 [facility] Comment on above: Expected: 09/20/2024, Expires: Start: 09-20-2024 End: 12-20-2024 Hepatitis B virus surface Ag [Presence] in Serum HEPATITIS B SURFACE ANTIGEN Lab Routine Supervision of high risk , antepartum History of gestational diabetes in prior , currently History of intravenous drug use in remission History of depression History of hepatitis C Expected: 09/20/2024, Expires: 12/20/2024 [facility] Comment on above: Expected: 09/20/2024, Expires: Start: 09-20-2024 End: 12-20-2024 Hepatitis C virus Ab [Presence] in Serum HEPATITIS C ANTIBODY IA WITH CONFIRMATION Lab Routine Supervision of high risk , antepartum History of gestational diabetes in prior , currently History of intravenous drug use in remission History of depression History of hepatitis C Expected: 09/20/2024, Expires: 12/20/2024 [facility] Comment on above: Expected: 09/20/2024, Expires: Start: 09-20-2024 End: 12-20-2024 HIV 1+2 Ab [Presence] in Serum or Plasma by Immunoassay HIV 1/2 COMBO WITH REFLEX TO DIFFERENTIATION Lab Routine Supervision of high risk , antepartum History of gestational diabetes in prior , currently History of intravenous drug use in remission History of depression History of hepatitis C Expected: 09/20/2024, Expires: 12/20/2024 [facility] Comment on above: Expected: 09/20/2024, Expires: Start: 09-20-2024 End: 09-20-2025 NUCHAL TRANSLUCENCY WHI NUCHAL TRANSLUCENCY WHI Anc Imaging Routine Supervision of high risk , antepartum History of gestational diabetes in prior , currently History of intravenous drug use in remission History of depression History of hepatitis C Expected: 09/20/2024, Expires: 09/20/2025 [facility] Comment on above: Expected: 09/20/2024, Expires: Start: 09-20-2024 End: 09-20-2025 OBSTETRIC ULTRASOUND WHI OBSTETRIC ULTRASOUND WHI Anc Imaging Routine Supervision of high risk , antepartum History of gestational diabetes in prior , currently History of intravenous drug use in remission History of depression History of hepatitis C Expected: 09/20/2024, Expires: 09/20/2025 [facility] Comment on above: Expected: 09/20/2024, Expires: Start: 09-20-2024 End: 12-20-2024 RUBELLA IGG ANTIBODY RUBELLA IGG ANTIBODY Lab Routine Supervision of high risk , antepartum History of gestational diabetes in prior , currently History of intravenous drug use in remission History of depression History of hepatitis C Expected: 09/20/2024, Expires: 12/20/2024 [facility] Comment on above: Expected: 09/20/2024, Expires: Start: 09-20-2024 End: 12-20-2024 SYPHILIS TREPONEMAL W/REFLEX SYPHILIS TREPONEMAL W/REFLEX Lab Routine Supervision of high risk , antepartum History of gestational diabetes in prior , currently History of intravenous drug use in remission History of depression History of hepatitis C Expected: 09/20/2024, Expires: 12/20/2024 [facility] Comment on above: Expected: 09/20/2024, Expires: Start: 09-20-2024 End: 12-20-2024 TYPE + SCREEN TYPE + SCREEN Blood Bank Routine Supervision of high risk , antepartum History of gestational diabetes in prior , currently History of intravenous drug use in remission History of depression History of hepatitis C Expected: 09/20/2024, Expires: 12/20/2024 [facility] Comment on above: Expected: 09/20/2024, Expires: Start: 08-27-2024 End: 08-27-2024 Patient encounter procedure 08/27/2024 10:00 AM EST Office Visit Psychiatry [address] [place] [phone] Kalyani Rios, PROCUREMENT TECHNICIAN.ELEVATOR SERVICE MECHANIC [address] [place] [phone] [place] office with EKG at time of visit Psychiatry Comment on above: [place] office with EKG at time of visit Start: 07-16-2024 End: 10-15-2024 Basic metabolic 2000 panel - Serum or Plasma [facility] Comment on above: Expected: 07/16/2024, Expires: Start: 07-16-2024 End: 10-15-2024 LIPID PANEL, NONFASTING [facility] Work Phone: Comment on above: Expected: 07/16/2024, Expires: Start: 07-03-2024 End: 07-03-2024 Patient encounter procedure 07/03/2024 3:00 PM EDT Office Visit OB/Gynecology [address] [place] [address] Christian Neri MD [address] [place] [address] Annual Exam OB/Gynecology Comment on above: Annual Exam Start: 06-25-2024 End: 06-25-2024 ambulatory 06/25/2024 1:15 PM EDT OT/PT/Speech Visit [facility] [address] [place] [address] Dyana Collazo PT hip pain [facility] Comment on above: hip pain Start: 06-17-2024 End: 06-17-2024 Patient encounter procedure 06/17/2024 9:15 AM EDT Office Visit Orthopaedics [address] [place] [address] August Canales MD [address] [place] [address] Chronic pain of both hips [M25.551, M25.552, G89.29] Orthopaedics Comment on above: Chronic pain of both hips [M25.551, M25. 552, G89.29] Start: 06-11-2024 End: 06-11-2024 Patient encounter procedure 06/11/2024 9:00 AM EDT Office Visit Psychiatry [address] [place] [phone] Kalyani Rios, PROCUREMENT TECHNICIAN.ELEVATOR SERVICE MECHANIC [address] [place] [phone] EKG NEEDED Psychiatry Comment on above: EKG NEEDED Start: 06-06-2024 End: 06-06-2024 ambulatory 06/06/2024 1:15 PM EDT OT/PT/Speech Visit [facility] [address] [place], [place] [phone] Dyana Collazo, PT M25.551,M25.552,G89.29 (ICD-10-CM) - Chronic pain of both hips [facility] Comment on above: M25.551,M25.552,G89.29 (ICD-10-CM) - Chr onic pain of both hips Start: 05-23-2024 End: 05-23-2024 ambulatory 05/23/2024 1:15 PM EDT OT/PT/Speech Visit [facility] [address] [place], [place] [id number] Dyana Collazo, PT M25.551,M25.552,G89.29 (ICD-10-CM) - Chronic pain of both hips [facility] Comment on above: M25.551,M25.552,G89.29 (ICD-10-CM) - Chr onic pain of both hips Start: 05-19-2024 Covid-19 Vaccine ( season) Covid-19 Vaccine ( season) [facility] Start: 05-19-2024 Covid-19 Vaccine ( season) Covid-19 Vaccine ( season) [facility] Start: 05-19-2024 Influenza vaccination [facility] Start: 05-07-2024 End: 05-07-2024 Patient encounter procedure 05/07/2024 2:30 PM EDT Office Visit Psychiatry [address] [place] [phone] Kalyani Rios, PROCUREMENT TECHNICIAN.ELEVATOR SERVICE MECHANIC [address] [place] [phone] EKG NEEDED Psychiatry Comment on above: EKG NEEDED Start: 05-03-2024 End: 05-03-2024 ambulatory 05/03/2024 9:45 AM EDT OT/PT/Speech Visit [facility] [address] [place] [address] Dyana Collazo, PT Chronic pain of both hips [M25.551, M25.552, G89.29] [facility] Comment on above: Chronic pain of both hips [M25.551, M25. 552, G89.29] Start: 04-12-2024 End: 04-12-2024 ambulatory 04/12/2024 1:15 PM EDT OT/PT/Speech Visit [facility] [address] [place] [address] Kristen Escobar, PT Chronic pain of both hips [M25.551, M25.552, G89.29] [facility] Comment on above: Chronic pain of both hips [M25.551, M25. 552, G89.29] Start: 04-09-2024 End: 04-09-2024 Patient encounter procedure 04/09/2024 1:00 PM EDT Office Visit Dermatology [address] [place] [address] [place] [address] [place] [address] Keratosis pilaris [L85.8] Dermatology Comment on above: Keratosis pilaris [L85.8] Start: 03-19-2024 End: 06-18-2024 CASSI BY IFA WITH REFLEX [facility] Comment on above: Expected: 03/19/2024, Expires: Start: 03-19-2024 End: 06-18-2024 C reactive protein [Mass/volume] in Serum or Plasma [facility] Comment on above: Expected: 03/19/2024, Expires: Start: 03-19-2024 End: 06-18-2024 Rheumatoid factor [Units/volume] in Serum or Plasma [facility] Comment on above: Expected: 03/19/2024, Expires: 4 Start: 03-04-2024 End: 06-03-2024 Comprehensive metabolic 2000 panel - Serum or Plasma COMPREHENSIVE METABOLIC PANEL Lab Routine Encounter for long-term (current) use of medications Expected: 03/04/2024, Expires: 06/03/2024 [facility] Comment on above: Expected: 03/04/2024, Expires: Start: 03-04-2024 End: 06-03-2024 PHOSPHATIDYLETHANOL (PETH) PHOSPHATIDYLETHANOL (PETH) Lab Routine Encounter for long-term (current) use of medications Expected: 03/04/2024, Expires: 06/03/2024 [facility] Comment on above: Expected: 03/04/2024, Expires: Start: 03-04-2024 End: 06-03-2024 TOXICOLOGY SCREEN, ROUTINE URINE TOXICOLOGY SCREEN, ROUTINE URINE Lab Routine Encounter for long-term (current) use of medications Expected: 03/04/2024, Expires: 06/03/2024 [facility] Comment on above: Expected: 03/04/2024, Expires: Start: 03-04-2024 End: 03-04-2024 Follow-up encounter 03/04/2024 1:30 PM EDT [facility] Psychiatry [address] [place] [phone] Kalyani Rios, PROCUREMENT TECHNICIAN.ELEVATOR SERVICE MECHANIC [address] [place] [address] 2 MONTH FOLLOW UP Psychiatry Comment on above: 2 MONTH FOLLOW UP Start: 01-08-2024 End: 04-08-2024 GLUC JOSEPH, 2-HR NON-GEST, 75 GM, FASTING GLUC JOSEPH, 2-HR NON-GEST, 75 GM, FASTING Lab Routine History of gestational diabetes mellitus Encounter for screening for diabetes mellitus Expected: 01/08/2024, Expires: 04/08/2024 [facility] Comment on above: Expected: 01/08/2024, Expires: 4 Start: 01-08-2024 End: 04-08-2024 Hemoglobin A1c in Blood HEMOGLOBIN A1C Lab Routine History of gestational diabetes mellitus Encounter for screening for diabetes mellitus Expected: 01/08/2024, Expires: 04/08/2024 [facility] Work Phone: Comment on above: Expected: 01/08/2024, Expires: 4 Start: 06-28-2023 End: 08-28-2023 GLUC JOSEPH, 2-HR NON-GEST, 75 GM, FASTING GLUC JOSEPH, 2-HR NON-GEST, 75 GM, FASTING Lab Routine History of gestational diabetes Expected: 06/28/2023, Expires: 08/28/2023 [facility] Work Phone: Comment on above: Expected: 06/28/2023, Expires: 3 Start: 05-19-2023 Covid-19 Vaccine ( season) Covid-19 Vaccine () [facility] Start: 05-19-2023 Influenza vaccination [facility] Start: 05-06-2023 Patient discharge [facility] Start: 05-05-2023 Administration of medication [facility] Start: 05-05-2023 Application of ice collar, cap or bag [facility] Start: 05-05-2023 Catheterization of vein [facility] Start: 05-05-2023 Introduction of urinary catheter [facility] Start: 05-05-2023 Measuring intake and output [facility] Start: 05-05-2023 Notification of physician [facility] Start: 05-05-2023 Procedure discontinued [facility] Start: 05-05-2023 Provision of activity privileges [facility] Start: 05-05-2023 Vital signs measurements [facility] Start: 05-05-2023 [facility] Start: 05-04-2023 Admission procedure [facility] Start: 05-04-2023 Consultation [facility] Start: 04-16-2023 [facility] Start: 04-16-2023 Nonstress test [facility] Start: 04-16-2023 Obstetric monitoring [facility] Start: 04-16-2023 Vital signs measurements [facility] Start: 04-16-2023 [facility] Start: 04-16-2023 Iv infusion therapy/prophylaxis /dx 1st to 1 hr THER/PROPH/DIAG IV INF INIT [facility] Start: 12-08-2022 End: 12-09-2023 OBSTETRIC ULTRASOUND [facility] OBSTETRIC ULTRASOUND [facility] Anc Imaging Routine 16 weeks gestation of Supervision of high risk in second trimester History of hepatitis C History of gestational diabetes in prior , currently History of intravenous drug use in remission Expected: 12/08/2022, Expires: 12/09/2023 [facility] Work Phone: Comment on above: Expected: 12/08/2022, Expires: 4 Start: 11-24-2022 End: 01-19-2023 SEQUENTIAL SCRN SCND TRIMESTER SEQUENTIAL SCRN SCND TRIMESTER Lab Routine Encounter for screening for nuchal translucency Expected: 11/24/2022 (Approximate), Expires: 01/19/2023 [facility] Work Phone: Comment on above: Expected: 11/24/2022 (Approximate), Expi res: 01/19/2023 Start: 11-10-2022 End: 01-10-2023 SEQUENTIAL SCRN FRST TRIMESTER [facility] Work Phone: Comment on above: Expected: 11/10/2022, Expires: 3 Start: 10-21-2022 Ther proph/dx njx iv push single/1st sbst/drug THER/PROPH/DIAG INJ IV PUSH [facility] Start: 10-21-2022 Therapeutic injection iv push each new drug TX/PRO/DX INJ NEW DRUG ADDON [facility] Start: 10-10-2022 End: 12-10-2022 Hemoglobin A1c in Blood [facility] Work Phone: Comment on above: Expected: 10/10/2022, Expires: 3 Start: 10-10-2022 End: 12-10-2022 Hepatitis B virus surface Ag [Presence] in Serum [facility] Work Phone: Comment on above: Expected: 10/10/2022, Expires: 3 Start: 10-10-2022 End: 12-10-2022 Hepatitis C virus Ab [Presence] in Serum [facility] Work Phone: Comment on above: Expected: 10/10/2022, Expires: 3 Start: 10-10-2022 End: 12-10-2022 HIV 1+2 Ab [Presence] in Serum or Plasma by Immunoassay [facility] Work Phone: Comment on above: Expected: 10/10/2022, Expires: 3 Start: 10-10-2022 End: 10-10-2023 NUCHAL TRANSLUCENCY WHI NUCHAL TRANSLUCENCY WHI Anc Imaging Routine Early stage of History of gestational diabetes in prior , currently History of hepatitis C History of intravenous drug use in remission Supervision of high risk in first trimester Obesity in Expected: 10/10/2022, Expires: 10/10/2023 [facility] Work Phone: Comment on above: Expected: 10/10/2022, Expires: 4 Start: 10-10-2022 End: 10-10-2023 OBSTETRIC ULTRASOUND WHI OBSTETRIC ULTRASOUND [facility] Anc Imaging Routine Early stage of History of gestational diabetes in prior , currently History of hepatitis C History of intravenous drug use in remission Supervision of high risk in first trimester Obesity in Expected: 10/10/2022, Expires: 10/10/2023 [facility] Work Phone: Comment on above: Expected: 10/10/2022, Expires: 4 Start: 10-10-2022 End: 12-10-2022 RUBELLA IGG AB [facility] Work Phone: Comment on above: Expected: 10/10/2022, Expires: 3 Start: 10-10-2022 End: 12-10-2022 SYPHILIS TOTAL W/REFLEX [facility] Work Phone: Comment on above: Expected: 10/10/2022, Expires: 3 Start: 09-30-2022 End: 11-30-2022 Cobalamin (Vitamin B12) [Mass/volume] in Serum or Plasma [facility] Work Phone: Comment on above: Expected: 09/30/2022, Expires: 3 Start: 09-30-2022 End: 11-30-2022 Folate [Mass/volume] in Serum or Plasma [facility] Work Phone: Comment on above: Expected: 09/30/2022, Expires: 3 Start: 09-30-2022 End: 11-30-2022 Thyrotropin [Units/volume] in Serum or Plasma [facility] Work Phone: Comment on above: Expected: 09/30/2022, Expires: 3 Start: 09-18-2022 DEPRESSION ASSESSMENT DEPRESSION ASSESSMENT [facility] Start: 05-19-2022 Influenza vaccination [facility] Start: 2021 Screening for malignant neoplasm of cervix [facility] Start: 05-19-2019 Influenza vaccination Flu vaccine (#1) [place], [place] Start: 2012 Cervical cancer screen Cervical cancer screen [place], [place] Start: 2012 Screening for malignant neoplasm of cervix Pap Smear [facility] Start: 2010 DTaP/Tdap/Td vaccine (1 - Tdap) DTaP/Tdap/Td vaccine (1 - Tdap) [place], [place] Start: 2010 Hepatitis B Vaccine (1 of 3 - 19+ 3-dose series) Hepatitis B Vaccine (1 of 3 - 19+ 3-dose series) [facility] Start: 2010 ONE PNEUMOVAX PRIOR TO AGE 65 ONE PNEUMOVAX PRIOR TO AGE 65 [facility] Start: 2009 Anxiety Screening Anxiety Screening [facility] Start: 2009 Depression Screening Depression Screening [facility] Start: 2009 Hepatitis C screening Hepatitis C Screening [facility] Start: 2006 HIV screen HIV screen [place], [place] Start: 2006 HIV screening HIV Screening [facility] Start: 2004 Varicella Vaccine (1 of 2 - 13+ 2-dose series) Varicella Vaccine (1 of 2 - 13+ 2-dose series) [place], [place] Start: 2003 Adult depression screening assessment [facility] Start: 1997 PNEUMOCOCCAL (1 - PCV) PNEUMOCOCCAL (1 - PCV) [facility] Start: 1997 Pneumococcal 0-64 years Vaccine (1 of 1 - PPSV23) Pneumococcal 0-64 years Vaccine (1 of 1 - PPSV23) [place], [place] Start: 1996 COVID-19 VACCINE (#1) COVID-19 VACCINE (#1) [facility] Start: 1996 COVID-19 VACCINE (1) COVID-19 VACCINE (1) [facility] Start: 1994 History and physical examination, annual for health maintenance Wellness Visit [facility] Start: 03-26-1992 COVID-19 VACCINE (#1) COVID-19 VACCINE (#1) [facility] Start: 1991 HEPATITIS B (1 of 3 - 3-dose series) HEPATITIS B (1 of 3 - 3-dose series) [facility] Start: 1991 Hepatitis B Vaccine (1 of 3 - 3-dose series) Hepatitis B Vaccine (1 of 3 - 3-dose series) [facility] ALERE STREP A TEST (AG) ALERE ST REP A TEST (AG) Lab Routine Sore throat Ordered: 11/08/2022 [facility] Work Phone: Comment on above: Ordered: 11/08/2022 Bacteria identified in Urine by Culture URINE CULTURE Microbiology Routine Early stage of History of gestational diabetes in prior , currently History of hepatitis C History of intravenous drug use in remission Supervision of high risk in first trimester Obesity in 10/10/2022 3:07 PM EST [facility] Work Phone: Bacteria identified in Urine by Culture URINE CULTURE Microbiology Routine Urinary frequency 06/28/2023 4:13 PM EDT [facility] Work Phone: Bacteria identified in Urine by Culture URINE CULTURE Microbiology Routine Supervision of high risk , antepartum History of gestational diabetes in prior , currently History of intravenous drug use in remission History of depression History of hepatitis C 09/20/2024 10:11 AM [facility] BACTERIAL VAGINOSIS AMPLIFICATION BACTERIAL VAGINOSIS AMPLIFICATION Lab Routine Vaginal odor Vaginal discharge 04/26/2022 2:39 PM T [facility] Work Phone: BACTERIAL VAGINOSIS NAAT BACTERI AL VAGINOSIS NAAT Lab Routine Vaginal odor 03/24/2025 10:41 AM [facility] Basic metabolic 2000 panel Basic Metabolic Panel Lab Routine Daily until discontinued starting 04/30/2019 [facility] [employer] Comment on above: Daily until discontinued starting 2018 End: 10-14-2023 BIOPHYSICAL PROFILE US [facility] BIOPHYSICAL PROFILE US [facility] Anc Imaging Routine 34 weeks gestation of Insulin controlled gestational diabetes mellitus (GDM) in third trimester Once per week for 10 Occurrences starting 04/17/2023 until 10/14/2023 [facility] Work Phone: Comment on above: Once per week for 10 Occurrences startin g 04/17/2023 until 10/14/2023 BERENICE / TRICHOMONA S AMPLIFICATION BERENICE / TRICHOMONAS AMPLIFICATION Lab Routine Vaginal odor Vaginal discharge 04/26/2022 2:40 PM [facility] Work Phone: BERENICE/TRICHOMONAS NAAT BERENICE /TRICHOMONAS NAAT Lab Routine Vaginal odor 03/24/2025 10:41 AM [facility] Work Phone: CBC Auto Differential CBC Auto D ifferential Lab Routine Daily until discontinued [facility]30[facility] on above: Daily until discontinued starting 2018 Chlamydia trachomatis+Neisseria gonorrhoeae DNA [Presence] in Unspecified specimen by CHANI with probe detection GC/CHLAMYDIA DNA DET Lab Routine Early stage of History of gestational diabetes in prior , currently History of hepatitis C History of intravenous drug use in remission Supervision of high risk in first trimester Obesity in 10/10/2022 3:07 PM [facility] Work Phone: Chlamydia trachomatis+Neisseria gonorrhoeae DNA [Presence] in Unspecified specimen by CHANI with probe detection GONORRHEA/CHLAMYDIA NAAT Lab Routine Supervision of high risk , antepartum History of gestational diabetes in prior , currently History of intravenous drug use in remission History of depression History of hepatitis C 09/20/2024 10:11 AM [facility] End: 09-04-2025 Choriogonadotropin [Units/volume] in Serum or Plasma hCG, Blood, Quantitative Lab Routine , unspecified gestational age 1 Occurrences starting 09/04/2024 until 09/04/2025 [facility] Work Phone: Comment on above: 1 Occurrences starting 09/04/2024 until 09/04/2025 End: 04-28-2019 Culture Blood #1 Culture Blood #1 Microbiology STAT One Time for 1 Occurrences starting 04/28/2019 until 04/28/[facility] on above: One Time for 1 Occurrences starting 04/18 until 04/28/2019 Culture Blood #1 Culture Blood # 1 Microbiology STAT 04/28/2019 4:44 PM EDT [facility] BENNY GUERRERO End: 04-28-2019 Culture Blood #2 Culture Blood #2 Microbiology STAT One Time for 1 Occurrences starting 04/28/2019 until 04/28/2019 [facility] Comment on above: One Time for 1 Occurrences starting 04/18 until 04/28/2019 Culture Blood #2 Culture Blood # 2 Microbiology STAT 04/28/2019 4:44 PM EDT [facility] End: 03-04-2025 ECG COMPLETE ECG COMPLETE ECG Routine Encounter for long-term (current) use of medications 1 Occurrences starting 03/04/2024 until 03/04/2025 [facility] Work Phone: Comment on above: 1 Occurrences starting 03/04/2024 until 03/04/2025 End: 04-30-2019 Hepatitis Panel, Acute Hepatitis Panel, Acute Lab Routine Tomorrow AM for 1 Occurrences starting 04/30/2019 until 04/30/2019 [facility] Comment on above: Tomorrow AM for 1 Occurrences starting 0 04/30/2019 until 04/30/2019 End: 04-28-2019 HGC Urine Qual Preg HGC Urine Qual Preg Lab STAT One Time for 1 Occurrences starting 04/28/2019 until 04/28/2019 [place] Comment on above: One Time for 1 Occurrences starting 04/18 until 04/28/2019 HGC Urine Qual Preg HGC Urine Qu al Preg Lab STAT 04/28/2019 6:36 PM EDT [place], [place] Influenza virus A an d B RNA and SARS-CoV-2 (COVID-19) N gene panel - Respiratory specimen by CHANI with probe detection COVID WITH FLUA+B, ROUTINE Microbiology Routine Sore throat URI, acute Ordered: 11/08/2022 [facility] Work Phone: Comment on above: Ordered: 11/08/2022 Initiate Oxygen Ther apy Protocol Initiate Oxygen Therapy Protocol Respiratory Care Routine Daily until discontinued starting 04/28/2019 [place], [place] Comment on above: Daily until discontinued starting 2018 Microscopic observat ion [Identifier] in Vaginal fluid by Gram stain BACT/BERENICE VAG GRAM STAIN Microbiology Routine Vaginal discharge 01/04/2022 4:31 PM EDT [facility] Work Phone: End: 05-29-2023 OBSTETRIC ULTRASOUND WHI OBSTETRIC ULTRASOUND WHI Anc Imaging Routine 29 weeks gestation of Once per month for 2 Occurrences starting 03/14/2023 until 05/29/2023 [facility] Work Phone: Comment on above: Once per month for 2 Occurrences startin g 03/14/2023 until 05/29/2023 End: 05-24-2023 OBSTETRIC ULTRASOUND WHI OBSTETRIC ULTRASOUND WHI Anc Imaging Routine 33 weeks gestation of Once per month for 5 Occurrences starting 04/05/2023 until 05/24/2023 [facility] Work Phone: Comment on above: Once per month for 5 Occurrences startin g 04/05/2023 until 05/24/2023 PAP TEST PAP TEST Lab Kvng martin Screening for cervical cancer Screening for HPV (human papillomavirus) 09/20/2024 10:11 AM EST [facility] Patient Education Kick Counts ED False Labor OB Triage: Return to Hospital or Notify Physician if you Experience: [facility] Work Phone: Patient referral [facility] Work Phone: ROUTINE, GR OUP B STREP PCR ROUTINE, GROUP B STREP PCR Microbiology Routine Insulin controlled gestational diabetes mellitus (GDM) in third trimester Supervision of high risk in third trimester 36 weeks gestation of 04/28/2023 11:57 AM EDT [facility] Work Phone: ROUTINE, GR OUP B STREPTOCOCCUS BY PCR ROUTINE, GROUP B STREPTOCOCCUS BY PCR Microbiology Routine 36 weeks gestation of ([facility]) 03/20/2025 3:27 PM EDT [facility] Work Phone: End: 04-28-2019 Urinalysis Urinalysis Lab STAT One Time for 1 Occurrences starting 04/28/2019 until 04/28/2019 [facility] Comment on above: One Time for 1 Occurrences starting 04/18 until 04/28/2019 Urinalysis Urinalysis Lab S TAT 04/28/2019 6:36 PM EDT [facility] BENNY GUERRERO End: 04-28-2019 Urine Drug Screen Urine Drug Screen Lab Routine One Time for 1 Occurrences starting 04/28/2019 until 04/28/2019 [facility] Comment on above: One Time for 1 Occurrences starting 04/18 until 04/28/2019 Urine Drug Screen Urine Drug Scr een Lab STAT 04/28/2019 6:36 PM EDT [facility] End: 09-04-2025 US transabdominal and transvaginal for in first trimester US Obstetric TransvaginaL First Trimester Imaging Routine , unspecified gestational age 1 Occurrences starting 09/04/2024 until 09/04/2025 [facility] Comment on above: 1 Occurrences starting 09/04/2024 until 09/04/2025 End: 04-29-2019 Vancomycin, Trough Vancomycin, Trough Lab Timed One Time for 1 Occurrences starting 04/29/2019 until 04/29/2019 [facility] Comment on above: One Time for 1 Occurrences starting 04/18 until 04/29/2019 VL UPPER EXTREMITY V ENOUS DUPLEX LEFT VL UPPER EXTREMITY VENOUS DUPLEX LEFT Imaging STAT 04/28/2019 4:44 PM EDT [facility] End: 04-18-2025 XR HIP BILATERAL 5V PEL/AP/LAT EACH HIP XR HIP BILATERAL 5V PEL/AP/LAT EACH HIP Radiology Routine Chronic pain of both hips 1 Occurrences starting 03/19/2024 until 04/18/2025 [facility] Work Phone: Comment on above: 1 Occurrences starting 03/19/2024 until 04/18/2025 XR HIP BILATERAL 5V PEL/AP/LAT EACH HIP XR HIP BILATERAL 5V PEL/AP/LAT EACH HIP Radiology Routine Chronic pain of both hips 04/30/2024 12:53 PM EDT [facility] Work Phone: [facility] Immunizations Immunization Date Immunization Notes Care Provider Fa [facility] 02-14-2025 tetanus toxoid, redu dominique diphtheria toxoid, and acellular pertussis vaccine, adsorbed Christian Boyce MD Work Phone: [facility] 03-01-2023 tetanus toxoid, redu dominique diphtheria toxoid, and acellular pertussis vaccine, adsorbed Christian Boyce MD Work Phone: [facility] 03-16-2021 tetanus toxoid, redu dominique diphtheria toxoid, and acellular pertussis vaccine, adsorbed Rukhsana Mckinnon MD Work Phone: [facility] 07-17-2019 hepatitis A vaccine, adult dosage Rukhsana Mckinnon MD Work Phone: [facility] Payers Date Payer Category Payer Self-pay [id number] 2022 Medicaid [id number] 2020 Medicaid [employer] [employer] [place] [id number] 2020-Present [phone] [address] [address] [place] [address] Medicaid [id number] 2020 Medicaid [id number] 2018 Unknown BAILEE LÓPEZ [facility] MEDICAID xxxxxxxxxxx 2018-Present [phone] CLAIMS DEPARTMENT [address] [place] [address] xxxxxxxxxxx [id number] 2017 Private Health Insurance [id number] 2016 Private Health Insurance AETNA AETNA - OPEN ACCESS (HMO) xxxxxxxxxx 2016-Present [phone] [address] [place] [address] xxxxxxxxxx [id number] 1991 Unknown [id number] Private Health Insurance [id number] Unknown BAILEE [id number] Unknown [id number] Social History Date Type Detail Facility Start: 04-28-2019 End: 04-26-2022 Tobacco smoking status NHIS Current every day smoker [facility] Start: 04-28-2019 End: 02-01-2023 Alcohol intake No [facility] Start: 1990 Sex Assigned At Not on file [facility] [place] Start: 09-28-2012 End: 09-28-2020 History of tobacco use Smoker [facility] Start: 11-19-2021 End: 07-16-2024 Tobacco use and exposure Smokeless tobacco non-user [facility] Start: 01-04-2022 End: 03-24-2025 Alcohol intake Ex-drinker (finding) [facility] Start: 11-19-2021 History SDOH Alcohol Frequency 1 [facility] Start: 11-19-2021 History SDOH Alcohol Std Drinks 98 [facility] Start: 11-19-2021 History SDOH Social Connections Phone 5 [facility] Start: 11-19-2021 History SDOH Social Connections Get Together 2 [facility] Start: 11-19-2021 History SDOH Social Connections Living 8 [facility] Start: 11-19-2021 History SDOH Physical Activity DPW 4 [facility] Start: 10-01-2020 Education 14 [facility] Start: 10-01-2020 End: 04-26-2022 Tobacco Comment Quit vaping 2020, stoped smoking 2016 [facility] Start: 1990 Sex Assigned At Female [facility] Start: 12-25-2021 End: 04-18-2022 Exposure to SARS-CoV-2 (event) Not sure [facility] Start: 09-28-2012 End: 09-28-2020 History of tobacco use Cigarette Smoker [facility] Work Phone: Start: 09-16-2022 End: 07-16-2024 Tobacco smoking status NHIS Ex-smoker [facility] Work Phone: Start: 08-31-2022 [facility] Start: 05-20-2021 End: 05-04-2023 Tobacco smoking status [facility] Unknown if ever smoked [facility] Start: 03-27-2019 None [facility] Start: 03-27-2019 Heroin [facility] Start: 03-27-2019 With Family [facility] Start: 03-28-2019 Cigarettes [facility] Start: 11-11-2022 Tobacco Comment Pt uses nicotine vape [facility] Start: 11-19-2021 End: 02-01-2023 History of Social function [facility] Do you belong to any clubs or organizations such as scientology groups, unions, fraternal or athletic groups, or school groups? No [facility] Are you now , , , , never or living with a partner? Living with partner [facility] How often to you hav e a drink containing alcohol? Never [facility] How many standard dr inks containing alcohol do you have on a typical day? Patient refused [facility] Do you feel stress - tense, restless, nervous, or anxious, or unable to sleep at night because your mind is troubled all the time - these days [OSQ] Not at all [facility] (I/We) worried wheth er (my/our) food would run out before (I/we) got money to buy more. Never true [facility] Start: 10-20-2021 Gender identity Identifies as female gender (finding) [facility] Start: 10-20-2021 Sexual orientation Heterosexual (finding) [facility] Are you now , , , , never or living with a partner? Never [facility] How hard is it for y ou to pay for the very basics like food, housing, medical care, and heating Somewhat hard [facility] Do you feel stress - tense, restless, nervous, or anxious, or unable to sleep at night because your mind is troubled all the time - these days [OSQ] To some extent [facility] Start: 09-04-2024 Tobacco smoking status NHIS Never smoked tobacco [facility] Start: 09-04-2024 Alcoholic beverage intake Lifetime non-drinker (finding) [facility] Medical Equipment Procedure Code Equipment Code Equipment Original Text Equipment Identifier Dates Start: 03-14-2023 End: 10-24-2023 Comment on above: Test 4 times a day a s instructed 1 Each four times da zainab. Use as instructed 1 Each once daily. Goals Date Patient Goal Desired Activity /State Personal health goal Mental Status Date Assessment Result Facility 10-21-2022 Cognitive function Voice/Name [facility] Work Phone: Clinical Notes 11-26-2020 to 04-07-2025 Patient InstructionsRaKalyani choi APRN.E[employer]CH[employer]IC - 04/07/2025 1:07 PM EDTPrenatal Quick Notes - Christian Neri MD - 04/02/2025 11:30 AM EDTPatient InstructionsPatient Instructions Note Date & Type Note Facility 04-07-2025 Instructions Kalyani Rios APRN.[facility] - 04/07/2025 1:43 PM EDT We discussed your and mental health: - You are currently 39 weeks and experiencing increased anxiety, irritability, and difficulty sleeping. You also reported mild cramping and contractions starting this morning. - Continue taking Prozac 20 mg daily. To help manage your anxiety during this time and in preparation for , I have prescribed an additional 10 mg of Prozac. Please start taking 30 mg daily now. This will allow the medication to build up in your system before delivery. - If you experience increased anxiety or depressive symptoms , your partner or support person can contact me to discuss further increasing your Prozac dose to 40 mg if needed. - We discussed the hormonal changes that occur and during . Please monitor for any worsening anxiety or mood changes, especially during weaning. Let me know if you experience any concerning symptoms. - You plan to breastfeed. If you take gabapentin while , monitor your baby for drowsiness and let me know if you notice any issues. We discussed your gabapentin use: - You are currently taking gabapentin 300 mg three times daily for anxiety and arthritis pain. To provide better symptom control, I have increased your dose to 300 mg four times daily. You may also take two capsules at once if you feel you need additional support during particularly difficult times, such as at night. - Continue monitoring how this adjustment works for you and let me know if further changes are needed. We discussed your nicotine use: - You have been vaping and recently noticed an increase in use due to stress. Increasing your Prozac dose may help reduce this stress and support you in cutting back. We discussed your follow-up plan: - Your next appointment with me is scheduled for May 08 at 11:00 AM to check in on your recovery and mental health. Please reach out if you experience worsening anxiety, depressive symptoms, or any other concerns before your next visit. Good luck with your delivery, and I hope everything goes smoothly! For those experiencing a suicidal crisis: --call the National Suicide Prevention Lifeline at 280 (696-691-8455) --text the Crisis Text Line (text HOME to 738318) --call 815 and let them know you are having a mental health crisis or go to your nearest Emergency Room for stabilization. --You can also call Mobile Crisis at [phone]. -- You may call the department appointment line at [phone] to schedule your appointment. -- Please call my nurse at [phone] or send me a message in [employer] with any questions or concerns between appointments. documented in this encounter [facility] 04-07-2025 Note HNO ID: [id number] Author: KALYANI RIOS APRN.CNP Service: ? Author Type: Nurse Practitioner Type: Progress Notes Filed: 04/07/2025 13:43 Note Text: FOLLOW UP - PSYCHIATRIC PROGRESS NOTE Visit Type:Virtual Visit utilizing two-way audio and video for at least a portion of the visit. Consent for virtual visit obtained verbally. Confidentiality limitations with virtual visits reviewed with the patient and guardian, if present, who have accepted the risk verbally prior to proceeding with encounter. I have communicated my name and active licensure. The patient's identity and physical location were verified at the time of this visit. Either the patient or their legal factory representative has been informed of the risks and benefits of -- and alternatives to -- treatment through a remote evaluation and consents to proceed with the evaluation remotely. Recording using iD[employer] software for draft documentation of the visit was discussed with the patient/authorized factory representative; all questions welcomed and answered. Patient/authorized factory representative agreed to proceed CC: Outpatient follow-up and safety monitoring of previously prescribed psychiatric medication, psychotherapy or other treatment HPI: Patient is a 34-year-old female with a history of depression and anxiety, currently 39 weeks , presenting for follow-up on anxiety management. Patient reports increased anxiety, irritability, and sleep disturbances over the past few days, coinciding with the late stages of her . She describes feeling super-duper anxious and on edge, with a tendency to be snappy. She attributes these feelings to physical discomfort, including cramping and small contractions since 0500 today, as well as frustration with the lack of space in her abdomen. She has not been able to sleep well for the past couple of nights. She is currently taking Prozac 20 mg at night, which she finds beneficial for sleep. However, she expresses concern about potential anxiety and is considering increasing her dosage. She recalls experiencing significant hormonal changes and anxiety during her last but not the first. She is open to a minor increase in her Prozac dosage to 30 mg. She is also taking gabapentin 300 mg TID for anxiety and it has been helpful for her arthritis pain, having discontinued meloxicam. She is interested in increasing her gabapentin dosage, possibly by taking an additional dose or increasing the frequency to four times a day. 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 She has recently sold some rabbits to reduce her workload and plans for her fiance to help with animal care during the first week . She intends to breastfeed her . She reports a recent increase in nicotine use, having cut back significantly but experiencing a resurgence in the past week, particularly over the last two days. She attributes this to stress and describes it as a comfort mechanism. She has a history of opioid use but feels comfortable in her recovery. She recently experienced a gallstone attack 3-4 weeks ago and is scheduled for surgery 6 weeks . She declined pain medication during the attack due to her and expresses pride in managing the pain without medication. Risks and benefits of the medication, including any black box warnings, were discussed with the patient. Interval Progress: Slightly worse PATIENT DATA: Generalized Anxiety Disorder Scale (CRIS-7) 08/27/2024 12/24/2024 04/07/2025 CRIS - 7 SCORES Score 15 8 13 (0-4) minimal anxiety, (5-9) mild anxiety, (10-14) moderate anxiety, (15-21) severe anxiety Patient Health Questionnaire (PHQ-9) 12/24/2024 02/17/2025 04/07/2025 PHQ-9 Score 4 6 10 (0-4) minimal depression, (5-9) mild depression, (10-14) moderate depression, (15-19) moderately severe depression, (20-27) severe depression PROMIS Global Health 05/23/2024 12/24/2024 04/07/2025 PROMIS Global Health - (T-Scores - the mean of general population = 50. Five points is a clinically meaningful difference.) Physical T-Score 32.4 47.7 44.9 44.9 Mental T-Score 36.3 43.5 43.5 43.5 PAST MEDICAL HISTORY Diagnosis Date Abnormal glandular Papanicolaou smear of cervix 2000 Bilateral ovarian cysts depression Gestational diabetes mellitus, class A1 (HCC) 03/15/2021 Gestational diabetes mellitus, class A2 (HCC) 03/15/2021 03/14/23-1hr GCT elevated, did not complete 3hr GTT because she was sick after this last . Will presume GDM and testing for duration of . Growth US every 4 weeks. Kristen Farr APRN.CNM History of drug use meth and heroine. Denies use x 1 year 09/2020 History of hepatitis C 11/26/2020 Migraine without aura and without status migrainosus, not intractable PAST SURG (more content not included)... [facility] 04-07-2025 History of Presen t illness Narrative Images from the original note were not included. FOLLOW UP - PSYCHIATRIC PROGRESS NOTE Visit Type:Virtual Visit utilizing two-way audio and video for at least a portion of the visit. Consent for virtual visit obtained verbally. Confidentiality limitations with virtual visits reviewed with the patient and guardian, if present, who have accepted the risk verbally prior to proceeding with encounter. I have communicated my name and active licensure. The patient's identity and physical location were verified at the time of this visit. Either the patient or their legal factory representative has been informed of the risks and benefits of -- and alternatives to -- treatment through a remote evaluation and consents to proceed with the evaluation remotely. Recording using iDub[employer] software for draft documentation of the visit was discussed with the patient/authorized factory representative; all questions welcomed and answered. Patient/authorized factory representative agreed to proceed CC: Outpatient follow-up and safety monitoring of previously prescribed psychiatric medication, psychotherapy or other treatment HPI: Patient is a 34-year-old female with a history of depression and anxiety, currently 39 weeks , presenting for follow-up on anxiety management. Patient reports increased anxiety, irritability, and sleep disturbances over the past few days, coinciding with the late stages of her . She describes feeling super-duper anxious and on edge, with a tendency to be snappy. She attributes these feelings to physical discomfort, including cramping and small contractions since 0500 today, as well as frustration with the lack of space in her abdomen. She has not been able to sleep well for the past couple of nights. She is currently taking Prozac 20 mg at night, which she finds beneficial for sleep. However, she expresses concern about potential anxiety and is considering increasing her dosage. She recalls experiencing significant hormonal changes and anxiety during her last but not the first. She is open to a minor increase in her Prozac dosage to 30 mg. She is also taking gabapentin 300 mg TID for anxiety and it has been helpful for her arthritis pain, having discontinued meloxicam. She is interested in increasing her gabapentin dosage, possibly by taking an additional dose or increasing the frequency to four times a day. 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 She has recently sold some rabbits to reduce her workload and plans for her fianc to help with animal care during the first week . She intends to breastfeed her . She reports a recent increase in nicotine use, having cut back significantly but experiencing a resurgence in the past week, particularly over the last two days. She attributes this to stress and describes it as a comfort mechanism. She has a history of opioid use but feels comfortable in her recovery. She recently experienced a gallstone attack 3-4 weeks ago and is scheduled for surgery 6 weeks . She declined pain medication during the attack due to her and expresses pride in managing the pain without medication. Risks and benefits of the medication, including any black box warnings, were discussed with the patient. Interval Progress: Slightly worse PATIENT DATA: Generalized Anxiety Disorder Scale (CRIS-7) 08/27/2024 12/24/2024 04/07/2025 CRIS - 7 SCORES Score 15 8 13 (0-4) minimal anxiety, (5-9) mild anxiety, (10-14) moderate anxiety, (15-21) severe anxiety Patient Health Questionnaire (PHQ-9) 12/24/2024 02/17/2025 04/07/2025 PHQ-9 Score 4 6 10 (0-4) minimal depression, (5-9) mild depression, (10-14) moderate depression, (15-19) moderately severe depression, (20-27) severe depression PROMIS Global Health 05/23/2024 12/24/2024 04/07/2025 PROMIS Global Health - (T-Scores - the mean of general population = 50. Five points is a clinically meaningful difference.) Physical T-Score 32.4 47.7 44.9 44.9 Mental T-Score 36.3 43.5 43.5 43.5 PAST MEDICAL HISTORY Diagnosis Date Abnormal glandular Papanicolaou smear of cervix 2000 Bilateral ovarian cysts depression Gestational diabetes mellitus, class A1 (HCC) 03/15/2021 Gestational diabetes mellitus, class A2 (HCC) 03/15/2021 03/14/23-1hr GCT elevated, did not complete 3hr GTT because she was sick after this last . Will presume GDM and testing for duration of . Growth US every 4 weeks. Kristen Farr APRN.CNM History of drug use meth and heroine. Denies use x 1 year 09/2020 History of hepatitis C 11/26/2020 Migraine without aura and without status migrainosus, not intractable PAST SURGICAL HISTORY Procedure Laterality Date CRYO CAUTERY CERVIX 2000 Current Outpatient Medications Medication Sig Dispense Refill FLUoxetine (PROZAC) 20 mg capsule Take 1 capsule by mouth once daily. Take with 10 mg dose. 30 capsule 1 FLUoxetine (PROZAC) 10 mg capsule Take 1 capsule by mouth once daily. Take with 20 mg dose. 30 capsule 1 gabapentin (NEURONTIN) 300 mg capsule Take 1 capsule by mouth four times daily for 60 days. 120 capsule 1 famotidine (PEPCID) 20 mg tablet Take 20 mg by mouth two times a day as needed. FERROUS SULFATE DRIED ORAL Take by mouth once daily. Mg unknown acetaminophen (TYLENOL EXTRA STRENGTH) 500 mg tablet Take 1 tablet by mouth every 6 hours as needed for pain. 30 tablet 0 Magnesium Oxide 420 mg tab Take 1 tablet by mouth once daily. 100 tablet 2 aspirin, enteric coated (ECOTRIN LOW STRENGTH) 81 mg EC tablet Take 1 tablet by mouth once daily. 90 tablet 3 No current facility-administered medications for this visit. ROS: See HPI PFSH: See HPI VITAL SIGNS: There were no vitals filed for this visit. MENTAL STATUS EXAM: Mental Status Exam General/Sensorium: Alert Orientation: AAOx3 Appearance: Casually dressed and appears well groomed and stated age Eye contact: Appropriate Demeanor: Appropriately interactive Motor activity: Calm Speech: Articulate with appropriate rhythm and volume Mood: Anxious- slightly distracted due to her children being around her. Affect: Congruent with mood Thought process: Within normal limits and linear, logical, and goal-directed Associations: Normal Thought content: Appropriate, focused on history, symptoms, and management and discussing stressors Suicidal ideation: none Homicidal ideation: none Abnormal/psychotic thoughts: Absent Perceptions: She does not appear internally stimulated. Attention: - fair per patient Memory: Short-term: - fair per patient Long-term: Intact Language: Intact Fund of knowledge: Fair Insight: Improving Judgment: Improving DATA REVIEWED: Psychiatric scales, Labs, and Electronic medical record ASSESSMENT & PLAN: 1. 1. Panic disorder with agoraphobia (F40.01) Moderate episode of recurrent major depressive disorder (HCC) (F33.1) Increased anxiety and panic attacks noted, particularly in the last few days. Previous hormonal changes post- have exacerbated anxiety and depressive symptoms. - Increase Prozac from 20 mg to 30 mg daily; provided additional 10 mg tablets to be taken with the current dose of 20 mg. - Increase gabapentin from 300 mg TID to 300 mg QID; advised patient can take two tablets at once if needed for severe anxiety. - Monitor for any signs of increased anxiety or depressive symptoms ; partner to contact me if adjustments are needed. 2. Encounter for long-term (current) use of medications (Z79.899) Currently on Prozac 20 mg daily and gabapentin 300 mg TID. - Adjusted Prozac to 30 mg daily and gabapentin to 300 mg QID. - Prescriptions sent to [facility]. 3. Psychosocial stressors (Z65.8) Significant stress from impending childbirth, childcare responsibilities, and upcoming surgery for gallstones. 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 - Discussed importance of support system; partner to assist with responsibilities . - Scheduled follow-up appointment on May 08 at 11:00 to monitor progress and adjust treatment as needed. 4. Vapes nicotine containing substance (Z72.0) Increased nicotine use noted in the past week, likely as a coping mechanism for stress and anxiety. - Address nicotine use in follow-up appointments; focus on reducing use as anxiety is managed. 5. 39 weeks gestation of (HCC) (Z3A.39) Currently 39 weeks with a history of significant hormonal changes . Planning to breastfeed. - Educated on potential hormonal shifts and their impact on anxiety and mood. - Advised monitoring for drowsiness in the if taking gabapentin while . - Scheduled follow-up appointment on May 08 at 11:00 to assess progress. Medical Decision Making: Problems: Moderate: 1+ chronic illnesses with change Risk: Moderate: Moderate risk from testing/treatment and Drug management Medical Decision Making Level: 4 - Moderate ADD ON PSYCHOTHERAPY CODE : No SIGNATURE: Kalyani Rios APRN.CNP PATIENT NAME: Tiffanie Cortez DATE: April 07, 2025 TIME: 1:09 PM documented in this encounter [facility] 04-02-2025 Progress note Formatting of t his note might be different from the original. DM-Pt doing well. Denies vaginal Bleeding, Leaking fluid, or regular Contractions. Pt reports good movement Physical Exam: Gen: female in no apparent distress Abd: soft, Gravid. Non tender to palpation. See flow sheet Participation of a fellow, resident, medical student, or advanced practice provider student in performing the sensitive examination was discussed with the patient or authorized factory representative. The patient or authorized factory representative has agreed to proceed with the sensitive examination. @ 38.2 weeks Assessment & Plan Supervision of high risk , antepartum (HCC) Continue ASA Orders: URINE OB DIP B/O Calculus of gallbladder with cholecystitis without biliary obstruction, unspecified cholecystitis acuity - started to have ? Gallbladder attack last night but feels better today Orders: URINE OB DIP B/O Anemia during in third trimester ([facility]) Continue PO iron Orders: URINE OB DIP B/O Anxiety during ([facility]) Continue prozac Orders: URINE OB DIP B/O History of hepatitis C Orders: URINE OB DIP B/O 38 weeks gestation of ([facility]) Kick counts reviewed Discussed EIOL - declines scheduling today but may consider if gallbladder continues to bother her. Membranes swept per patient request today Orders: URINE OB DIP B/O Christian Urias MD [facility] 04-02-2025 Miscellaneous Notes DM-Pt doing well. Denies vaginal Bleeding, Leaking fluid, or regular Contractions. Pt reports good movement Physical Exam: Gen: female in no apparent distress Abd: soft, Gravid. Non tender to palpation. See flow sheet Participation of a fellow, resident, medical student, or advanced practice provider student in performing the sensitive examination was discussed with the patient or authorized factory representative. The patient or authorized factory representative has agreed to proceed with the sensitive examination. @ 38.2 weeks Assessment & Plan Supervision of high risk , antepartum (HCC) Continue ASA Orders: URINE OB DIP B/O Calculus of gallbladder with cholecystitis without biliary obstruction, unspecified cholecystitis acuity - started to have ? Gallbladder attack last night but feels better today Orders: URINE OB DIP B/O Anemia during in third trimester (HCC) Continue PO iron Orders: URINE OB DIP B/O Anxiety during ([facility]) Continue prozac Orders: URINE OB DIP B/O History of hepatitis C Orders: URINE OB DIP B/O 38 weeks gestation of ([facility]) Kick counts reviewed Discussed EIOL - declines scheduling today but may consider if gallbladder continues to bother her. Membranes swept per patient request today Orders: URINE OB DIP B/O Christian Urias MD documented in this encounter [facility] 04-02-2025 Instructions Darlene Maxwell MA - 04/02/2025 11:08 AM EDT SEQUENTIAL SCREENINGS The [facility] offers sequential screenings for women who are interested in screenings for chromosomal abnormalities and certain defects during a . The sequential screen combines ultrasound and blood tests to determine the risk of chromosomal abnormalities, including Down's Syndrome (Trisomy 21) and Trisomy 18, as well as open neural tube defects including spina bifida. Ultrasound examination is performed between 11 weeks and 13 weeks gestational age. Blood tests are drawn after the ultrasound and again later in the between 15 and 21 weeks gestational age. Please let your physician know if you are interested in this testing. It will require an appointment with our body shop technician. This is not an ultrasound performed by a physician in our office during a routine visit. SIGNS AND SYMPTOMS OF LABOR 1. Contractions every 10 minutes or more often 2. Clear, pink, or brownish fluid (water) leaking from vagina 3. Feeling that baby is pushing down, pressure 4. Low, dull backache 5. Cramps that feel like a period 6. Cramps with or without diarrhea If you notice any of the above symptoms, contact our office at [phone] and ask to speak with a nurse. After hours, you can call doctors registry at [phone] OR call [facility] at [phone] and ask to have the doctor education analyst paged. If you consider this an emergency, dial [phone]--1 or go to your nearest emergency department. NEED HELP? Are you dealing with a violent or abusive relationship? Are you a victim of rape or sexual assult? Call [facility] ([place]) 24 hour Crisis Hotline: 384.902.4268 or 054-921-2780. MANUAL Your Guide to a Healthy manual is now on-line. Visit [email or web address] to download your free copy documented in this encounter [facility] 03-31-2025 Note HNO ID: [id number] Author: MASTER ARMENDARIZ MA Service: ? Author Type: Bundle Person Type: Progress Notes Filed: 03/31/2025 14:20 Note Text: POPULATION HEALTH NAVIGATION OUTREACH Action/FYI Manager Car updated per documentation. Reason for Outreach Medicaid OB/Peds Care Gaps due: N/A Patient Contacted: Unable or unnecessary to reach patient: [place] fan engine engineer added Navigation Signature: Master Cook MA March 31, 2025 12:43 PM [facility] 03-31-2025 History of Presen t illness Narrative POPULATION HEALTH NAVIGATION OUTREACH Action/FYI Manager Car updated per documentation. Reason for Outreach Medicaid OB/Peds Care Gaps due: N/A Patient Contacted: Unable or unnecessary to reach patient: fan engine engineer added Navigation Signature: Master Cook MA March 31, 2025 12:43 PM documented in this encounter [facility] 03-31-2025 Note Patient Outreach (NE TNGABRIEL) DIEGOTIFFANIE ([id number]) 1990 F CHT Date Time Provider Department 03/31/25 MASTER ARMENDARIZ During your visit today, we recorded the following information about you: Master Armendariz MA 03/31/2025 2:20 PM Signed POPULATION HEALTH NAVIGATION OUTREACH Action/FYI Manager Car updated per documentation. Reason for Outreach Medicaid OB/Peds Care Gaps due: N/A Patient Contacted: Unable or unnecessary to reach patient: [place] fan engine engineer added Navigation Signature: Master Cook MA March 31, 2025 12:43 PM Allergies As of Date: 03/31/2025 (No Known Allergies) Date Reviewed: 03/24/2025 Reviewed by: Jonelle Higuera LPN - Fully Assessed Reason for Visit: Population Health Navigation Outreach [3910] Cmt: Ob/peds Prescriptions as of 03/31/2025 - famotidine (PEPCID) 20 mg tablet Take 20 mg by mouth two times a day as needed. - FERROUS SULFATE DRIED ORAL Take by mouth once daily. Mg unknown - FLUoxetine (PROZAC) 20 mg capsule Take 1 capsule by mouth once daily. - gabapentin (NEURONTIN) 300 mg capsule Take 1 capsule by mouth three times a day for 60 days. - acetaminophen (TYLENOL EXTRA STRENGTH) 500 mg tablet Take 1 tablet by mouth every 6 hours as needed for pain. - Magnesium Oxide 420 mg tab Take 1 tablet by mouth once daily. - aspirin, enteric coated (ECOTRIN LOW STRENGTH) 81 mg EC tablet Take 1 tablet by mouth once daily. Problem List As Of Date 03/31/2025 Noted Resolved History of depression [Z86.59] 10/01/2020 History of cryosurgery of cervix complicating p*10/01/2020 History of intravenous drug use in remission [Z*10/01/2020 Supervision of high risk , antepartum *10/01/2020 History of hepatitis C [Z86.19] 11/26/2020 Abnormal glucose in , antepartum [O99.*11/26/2020 06/28/2021 Gestational diabetes mellitus, class A2 [O24.41*03/15/2021 09/20/2024 History of gestational diabetes in prior pregna*06/28/2021 Vapes nicotine containing substance [Z72.0] 09/16/2022 Chronic pain of both hips [M25.551, M25.552, G8*05/03/2024 10/04/2024 Hip dysplasia, acquired, 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] 06/18/2024 Anxiety during [O99.340, F41.9] 09/20/2024 Attention deficit hyperactivity disorder (ADHD)*09/20/2024 headache in first trimester [O26.891,*09/20/2024 Constipation during in third trimeste*09/20/2024 History of joint pain [Z87.39] 09/20/2024 Nausea and vomiting during [O21.9] 09/20/2024 Heartburn during in first trimester (*09/20/2024 03/20/2025 Encounter Status:Closed by MASTER ARMENDARIZ on 03/31/25 [facility] 03-24-2025 Progress note Formatting of t his note might be different from the original. S: Tiffanie Cortez is a 34 year old female who presents at 37 weeks gestation for a routine visit. Positive movements. Occasional contractions. C/O vaginal odor and increased discharge. Denies any vaginal itching, burning or pain. Denies headache, visual changes, chest pain, shortness of breath, vaginal bleeding, leakage of fluid, or dysuria. Feeling well, no complaints. Requesting CE today. O: See flow sheet Gen: No apparent distress Abd: Gravid, non tender CE / ASSESSMENT/PLAN: 1. 37 weeks gestation of (HCC) - ICD9: V22.2, ICD10: Z3A.37 (primary diagnosis) 2. Calculus of gallbladder with cholecystitis without biliary obstruction, unspecified cholecystitis 3. Heartburn during in third trimester 4. Vaginal odor - ICD9: 625.8, ICD10: N89.8 - BERENICE/TRICHOMONAS NAAT - BACTERIAL VAGINOSIS NAAT - GBS negative - Labor precautions reviewed and when to call office - RTO weekly visits Kervin Ovalle APRN.CNM [facility] 03-24-2025 Miscellaneous Notes S: Tiffanie Cortez is a 34 year old female who presents at 37 weeks gestation for a routine visit. Positive movements. Occasional contractions. C/O vaginal odor and increased discharge. Denies any vaginal itching, burning or pain. Denies headache, visual changes, chest pain, shortness of breath, vaginal bleeding, leakage of fluid, or dysuria. Feeling well, no complaints. Requesting CE today. O: See flow sheet Gen: No apparent distress Abd: Gravid, non tender CE / ASSESSMENT/PLAN: 1. 37 weeks gestation of (HCC) - ICD9: V22.2, ICD10: Z3A.37 (primary diagnosis) 2. Calculus of gallbladder with cholecystitis without biliary obstruction, unspecified cholecystitis 3. Heartburn during in third trimester 4. Vaginal odor - ICD9: 625.8, ICD10: N89.8 - BERENICE/TRICHOMONAS NAAT - BACTERIAL VAGINOSIS NAAT - GBS negative - Labor precautions reviewed and when to call office - RTO weekly visits Kervin Ovalle APRN.CNM documented in this encounter [facility] 03-24-2025 Instructions Jonelle Higuera LPN - 03/24/2025 10:19 AM EDT SEQUENTIAL SCREENINGS The [facility] offers sequential screenings for women who are interested in screenings for chromosomal abnormalities and certain defects during a . The sequential screen combines ultrasound and blood tests to determine the risk of chromosomal abnormalities, including Down's Syndrome (Trisomy 21) and Trisomy 18, as well as open neural tube defects including spina bifida. Ultrasound examination is performed between 11 weeks and 13 weeks gestational age. Blood tests are drawn after the ultrasound and again later in the between 15 and 21 weeks gestational age. Please let your physician know if you are interested in this testing. It will require an appointment with our body shop technician. This is not an ultrasound performed by a physician in our office during a routine visit. SIGNS AND SYMPTOMS OF LABOR 1. Contractions every 10 minutes or more often 2. Clear, pink, or brownish fluid (water) leaking from vagina 3. Feeling that baby is pushing down, pressure 4. Low, dull backache 5. Cramps that feel like a period 6. Cramps with or without diarrhea If you notice any of the above symptoms, contact our office at [phone] and ask to speak with a nurse. After hours, you can call doctors registry at [phone] OR call [facility] at [phone] and ask to have the doctor education analyst paged. If you consider this an emergency, dial 6-8-5 or go to your nearest emergency department. NEED HELP? Are you dealing with a violent or abusive relationship? Are you a victim of rape or sexual assult? Call [facility] ([place]) 24 hour Crisis Hotline: 508.175.1405 or 247-013-4548. MANUAL Your Guide to a Healthy manual is now on-line. Visit [email or web address] to download your free copy documented in this encounter [facility] 03-20-2025 Progress note Formatting of t his note might be different from the original. S: Tiffanie Cortez is a 34 year old female who presents at 04/14/2025, by Last Menstrual Period for a routine visit. Positive movements. Recently in hospital for gallstones. Had general surgery visit today. Plan is for surgery after delivery. Denies headache, visual changes, chest pain, shortness of breath, vaginal bleeding, leakage of fluid, or dysuria. O: See flow sheet Gen: No apparent distress Abd: Gravid, nontender TAUS- confirms vertex ASSESSMENT/PLAN: 1. 36 weeks gestation of 2. Calculus of gallbladder with cholecystitis without biliary obstruction, unspecified cholecystitis 3. Heartburn during in third trimester 4. Encounter for high risk in third trimester - Heartburn resolved with Pepcid - GBS collected - PTL precautions reviewed and when to call office - RTO 1 week and for weekly visits Kervin Ovalle APRN.CNM [facility] 03-20-2025 Miscellaneous Notes S: Tiffanie Cortez is a 34 year old female who presents at 04/14/2025, by Last Menstrual Period for a routine visit. Positive movements. Recently in hospital for gallstones. Had general surgery visit today. Plan is for surgery after delivery. Denies headache, visual changes, chest pain, shortness of breath, vaginal bleeding, leakage of fluid, or dysuria. O: See flow sheet Gen: No apparent distress Abd: Gravid, nontender TAUS- confirms vertex ASSESSMENT/PLAN: 1. 36 weeks gestation of 2. Calculus of gallbladder with cholecystitis without biliary obstruction, unspecified cholecystitis 3. Heartburn during in third trimester 4. Encounter for high risk in third trimester - Heartburn resolved with Pepcid - GBS collected - PTL precautions reviewed and when to call office - RTO 1 week and for weekly visits Kervin Ovalle APRN.CNM documented in this encounter [facility] 03-20-2025 Instructions Jonelle Higuera LPN - 03/20/2025 2:53 PM EDT SEQUENTIAL SCREENINGS The [facility] offers sequential screenings for women who are interested in screenings for chromosomal abnormalities and certain defects during a . The sequential screen combines ultrasound and blood tests to determine the risk of chromosomal abnormalities, including Down's Syndrome (Trisomy 21) and Trisomy 18, as well as open neural tube defects including spina bifida. Ultrasound examination is performed between 11 weeks and 13 weeks gestational age. Blood tests are drawn after the ultrasound and again later in the between 15 and 21 weeks gestational age. Please let your physician know if you are interested in this testing. It will require an appointment with our body shop technician. This is not an ultrasound performed by a physician in our office during a routine visit. SIGNS AND SYMPTOMS OF LABOR 1. Contractions every 10 minutes or more often 2. Clear, pink, or brownish fluid (water) leaking from vagina 3. Feeling that baby is pushing down, pressure 4. Low, dull backache 5. Cramps that feel like a period 6. Cramps with or without diarrhea If you notice any of the above symptoms, contact our office at [phone] and ask to speak with a nurse. After hours, you can call doctors registry at [phone] OR call [facility] at [phone] and ask to have the doctor education analyst paged. If you consider this an emergency, dial 91- or go to your nearest emergency department. NEED HELP? Are you dealing with a violent or abusive relationship? Are you a victim of rape or sexual assult? Call [facility] ([place]) 24 hour Crisis Hotline: 397.744.1439 or 216-682-7990. MANUAL Your Guide to a Healthy manual is now on-line. Visit [email or web address] to download your free copy documented in this encounter [facility] 03-20-2025 History and physical note Images from the original note were not included. General Surgery Consult REASON FOR VISIT Tiffanie Cortez is a 34 year old female who is scheduled for a consult at the request of Rukhsana Mckinnon for Consult (Calculus of gallbladder with cholecystitis without biliary obstruction, unspecified cholecystitis acuity ). My final recommendations will be communicated back to the requesting physician by the way of the shared medical record, fax, or via US Mail Recording using i[employer]ub[employer] software for draft documentation of the visit was discussed with the patient/authorized factory representative; all questions welcomed and answered. Patient/authorized factory representative agreed to proceed History of Present Illness: Tiffanie Cortez is a 34-year-old female, , presenting for evaluation of a recent gallbladder attack. Tiffanie reports experiencing her first gallbladder attack recently, which she describes as pretty severe. The pain was diffuse across the abdomen, with significant discomfort across the upper abdomen. She suspects the attack was triggered by consuming fried fish around noon, with pain onset approximately 2 hours later. The pain intensified over several hours, becoming severe by 21:00 and lasting until around midnight, at which point she was able to fall asleep. She has not experienced any further episodes or pain since this incident. She is currently and is hoping to avoid induction or surgery at this time. She is due in ~2 weeks. PAST MEDICAL HISTORY Diagnosis Date Abnormal glandular Papanicolaou smear of cervix 2000 Bilateral ovarian cysts depression Gestational diabetes mellitus, class A1 ([facility]) 03/15/2021 Gestational diabetes mellitus, class A2 ([facility]) 03/15/2021 03/14/23-1hr GCT elevated, did not complete 3hr GTT because she was sick after this last . Will presume GDM and testing for duration of . Growth US every 4 weeks. Kristen Farr APRN.CNM History of drug use meth and heroine. Denies use x 1 year 09/2020 History of hepatitis C 11/26/2020 Migraine without aura and without status migrainosus, not intractable PAST SURGICAL HISTORY Procedure Laterality Date CRYO CAUTERY CERVIX 2000 FAMILY HISTORY Problem Relation Age of Onset Hypertension Mother Hypertension Father No Known Problems Brother No Known Problems Maternal Grandmother Heart Attack Maternal Grandfather No Known Problems Paternal Grandmother Heart Attack Paternal Grandfather No Known Problems Daughter Social History Tobacco Use Smoking status: Former Current packs/day: 0.00 Types: Cigarettes Start date: 09/28/2012 Quit date: 09/28/2020 Years since quittin.4 Smokeless tobacco: Never Tobacco comments: Pt uses nicotine vape Vaping Use Vaping status: current everyday user Substances: Nicotine (2%) Substance Use Topics Alcohol use: Not Currently Drug use: Not Currently Types: Amphetamines, Heroin The patient has the following: Problem List Noted Noted By Resolved Resolved By Anxiety during ([facility]) 09/20/2024 Zena Fontenot APRN.ELEVATOR SERVICE MECHANIC No Overview Signed 09/20/2024 10:03 AM by Zena Fontenot APRN.MONICA September 20, 2024 Reports increased anxiety. No medication at this time. Has taken Prozac in the past. Follows with Kalyani through psych. Reports anxiety has increased with ADHD. Denies thoughts of self harm. Mental health resources provided. Has upcoming appointment with Kalyani. Zena Fontenot APRN.CNP Attention deficit hyperactivity disorder (ADHD) 09/20/2024 Zena Fontenot APRN.MONICA No headache in first trimester (HCC) 09/20/2024 Zena Fontenot APRN.CNP No Overview Signed 09/20/2024 10:06 AM by Zena Fontenot APRN.MONICA September 20, 2024 Has added Magnesium. Zena Fontenot APRN.CNP Constipation during in third trimester (HCC) 09/20/2024 Zena Fontenot APRN.CNP No Overview Signed 09/20/2024 10:10 AM by Zena Fontenot APRN.MONICA September 20, 2024 Discussed Colace. Zena Fontenot APRN.CNP History of joint pain 09/20/2024 Zena Fontenot APRN.CNP No Overview Signed 09/20/2024 10:12 AM by Zena Fontenot APRN.MONICA September 20, 2024 Taking Gabapentin and Meloxicam. Discussed recommendation of discontinuing Meloxicam use. Discussed limited data on Gabapentin during and recommend reaching out to prescribed for alternative options Zena Fontenot APRN.CNP Nausea and vomiting during (HCC) 09/20/2024 Zena Fontenot APRN.CNP No Heartburn during in first trimester (HCC) 09/20/2024 Zena Fontenot APRN.CNP No Overview Signed 09/20/2024 10:14 AM by Zena Fontenot APRN.MONICA September 20, 2024 Discussed Tums vs Pepcid. Zena Fontenot APRN.CNP Hip dysplasia, acquired, right 06/18/2024 Mamie Baxter PA-C No Vapes nicotine containing substance 09/16/2022 Gin Esquivel, GRANT No Overview Addendum 09/20/2024 10:11 AM by Zena Fontenot APRN.MONICA September 20, 2024 Reviewed risks and encouraged cessation. Resources provided. Actively decreasing amount of nicotine. Zena Fontenot APRN.CNP 09/16/2022atient is currently vaping nicotine. She is trying to cut down on the amount of vaping. I have discussed the risk of vaping nicotine during and advised her to quit. I have provided her with the [place] tobacco quit line number and also discussed [facility]'s tobacco cessation program. TKRN History of gestational diabetes in prior , currently (HCC) 06/28/2021 Kristen Farr APRN.CNM No Overview Addendum 09/20/2024 9:54 AM by Zena Fontenot APRN.ELEVATOR SERVICE MECHANIC September 20, 20242020 diet controled 2022 insulin controlled Zena Fontenot APRN.ELEVATOR SERVICE MECHANIC History of hepatitis C 11/26/2020 Christian Neri MD No Overview Addendum 10/07/2024 10:43 AM by Qi Plummer MD October 07, 2024 Hep C RNA neg. Ab positive c/w previous infection, no current infection. Qi Plummer MD 11/26/20: 4 yrs ago + viral load, most recent labs indicated negative viral load. Christian Urias MD History of depression 10/01/2020 Gin Esquivel RN No Overview Addendum 09/20/2024 10:01 AM by Zena Fontenot APRN.ELEVATOR SERVICE MECHANIC September 20, 2024 Denies concerns for depression at this time. Zena Fontenot APRN.ELEVATOR SERVICE MECHANIC 09/16/2022t has a history of anxiety/depression diagnosed in 2016 and treated by the counseling center, [facility] She has been off medication for 1 week. She is considering going back on propanolol. Discussed increased risks of depression during and and importance of reporting the development or worsening of symptoms should they occur. Pt denies ever having any suicidal thoughts or tendencies or thoughts of hurting others. I have advised her to talk with her counselor regarding medication during . TKRN History of cryosurgery of cervix complicating (HCC) 10/01/2020 Gin Esquivel RN No Overview Signed 10/01/2020 3:58 PM by Gin Esquivel (Rn) 10/01/2020 Patient states she has a history of [place]osur[place] [address] Sanders who is now retired. TKRN History of intravenous drug use in remission 10/01/2020 Gin Esquivel RN No Overview Addendum 09/20/2024 10:01 AM by Zena Fontenot APRN.ELEVATOR SERVICE MECHANIC September 20, 2024 5 years sober - used Meth and Heroin in the past. Is in therapy at [facility] in [facility]. Denies concerns for relapse at this time. Zena Fontenot APRN.MONICA 09/16/2022atient is obese. Patient has a history of drug use in the past. Has used meth and heroin. She states she has not used any drugs since November 04, 2019. She did have counseling at [facility] at one time. No longer attending counseling there. TKRN Supervision of high risk , antepartum (HCC) 10/01/2020 Gin Esquivel, GRANT No Overview Signed 09/20/2024 10:10 AM by Zena Fontenot APRN.MONICA Care Checklist Vaccines: [] Flu vaccine [] declined [] RSV vaccine 32 - 36 02/22 (May - Oct) [] declined [] COVID vaccine [] declined [] TDaP -36 [] declined First trimester: [x] Dating US [] 1st tri labs [x] Pap smear [] Carrier screening - considering [] declined [] NIPT screening - considering [] declined [] First trimester anatomy scan [] declined [] universal ASA ordered (start 12w-16w) [] declined [] M Power Consult [] not indicated [] declined Second trimester: [] Anatomy scan [] Mode of Delivery - [] Feeding - [] Pump ordered [] Diabetes screen [] CBC, RPR [] Behavioral Health Screening Third trimester (28-30 weeks): [] Consent [] Contraception [] Manager Car [] TeamBirth handout Third trimester (36-40 weeks): [] GBS [] Presentation - [] Scheduled [] yes - Hibiclens, pre-op instructions, CBC, T&S ordered [] no [] H&P [] Preferences worksheet [] Scanned in EMR [] Patient to bring copy to hospital [] Declined Chronic pain of both hips 05/03/2024 Dyana Collazo, PT 10/04/2024 Rukhsana Mckinnon MD Gestational diabetes mellitus, class A2 ([facility]) 03/15/2021 Christian Neri MD 09/20/2024 Zena Fontenot APRN.ELEVATOR SERVICE MECHANIC Overview Addendum 03/14/2023 3:33 PM by Kristen Farr APRN.CNM 03/14/23-1hr GCT elevated, did not complete 3hr GTT because she was sick after this last . Will presume GDM and testing for duration of . Growth US every 4 weeks. Kristen Farr APRN.CNM Abnormal glucose in , antepartum (HCC) 11/26/2020 Christian Neri MD 06/28/2021 Kristen Farr APRN.CNM Overview Signed 11/26/2020 1:07 PM by Christian Neri 11/26/20: failed 1hr GCT, 3hr GTT ordered. Christian Urias MD MEDICATIONS Current Outpatient Medications Medication Sig Dispense Refill FERROUS SULFATE DRIED ORAL Take by mouth once daily. Mg unknown FLUoxetine (PROZAC) 20 mg capsule Take 1 capsule by mouth once daily. 30 capsule 1 gabapentin (NEURONTIN) 300 mg capsule Take 1 capsule by mouth three times a day for 60 days. 90 capsule 1 acetaminophen (TYLENOL EXTRA STRENGTH) 500 mg tablet Take 1 tablet by mouth every 6 hours as needed for pain. 30 tablet 0 Magnesium Oxide 420 mg tab Take 1 tablet by mouth once daily. 100 tablet 2 aspirin, enteric coated (ECOTRIN LOW STRENGTH) 81 mg EC tablet Take 1 tablet by mouth once daily. 90 tablet 3 No current facility-administered medications for this visit. CURRENT ALLERGIES ALLERGIES No Known Allergies REVIEW OF SYSTEMS PAIN ASSESSMENT: Pain Pain Level: 9 Pain Location: Abdomen-Mid Upper Description: Sharp, Dull Duration Amount of Time: 4 Duration Units: Days Frequency: Intermittent GENERAL: No weight loss, malaise or fevers. RESPIRATORY: Negative for cough, hemoptysis, wheezing, dyspnea or shortness of breath. CARDIOVASCULAR: Negative for chest pain, leg swelling, or palpitations. GI: No current abdominal pain, but when episode occurred the pain was 9-10/10. No current nausea, vomiting, or change in bowel habits. PHYSICAL EXAMINATION BP 115/80 Pulse 77 Ht 5' 8.701 (1.75m) Wt 207 lb (93.9kg) LMP 07/08/2024 BMI 30.84 kg/(m^2). General Appearance: Well appearing, alert, in no acute distress, well-hydrated, well nourished. Lungs: Unlabored breathing on room air Heart: RR Abdomen: Gravid uterus, non-ttp in bilateral upper quadrants. No guarding or rebound tenderness. Participation of a fellow, resident, medical student, or advanced practice provider student in performing the sensitive examination was discussed with the patient or authorized factory representative. The patient or authorized factory representative has agreed to proceed with the sensitive examination. Diagnostic tests reviewed for today's visit: Most recent imaging and labs reviewed. RUQ US obtained at OSH Liver: unremarkable, measures 14.3cm Gallbladder: There is a 1.7cm stone in the dependent portion of the gallbladder. There is no gallbladder wall thickening or pericholecystic fluid. Espinoza's sign = negative Common bile duct = 2mm Pancreas: the visualized portion of the pancreas is normal Kidneys: The right kidney measures 13.3cm Assessment ASSESSMENT Biliary colic (primary encounter diagnosis) Symptomatic cholelithiasis Gravid uterus at term size (hcc) RECOMMENDATION 1. Calculus of gallbladder with cholecystitis without biliary obstruction, unspecified cholecystitis acuity (K80.10) 1. Biliary colic (K80.50) Symptomatic cholelithiasis (K80.20) Patient experienced a severe episode of biliary colic after consuming fried fish, lasting several hours. Ultrasound revealed a gallstone approximately 2 cm in size located in the neck of the gallbladder. No subsequent episodes reported. - Educated patient on the pathophysiology of gallstones and the potential for recurrent episodes. - Advised dietary modifications to avoid greasy, fatty, and fried foods to minimize the risk of future attacks. - Monitor for any recurrent episodes before delivery; instructed to contact the clinic if another attack occurs. - Plan to reassess and discuss cholecystectomy . 2. Gravid uterus at term size (HCC) (Z34.90) Patient is at term gestation and prefers to avoid induction. Monitor for any gallbladder attacks that could potentially induce early labor. Medical Decision Making: Medical Decision Making Level: 1 - N/A Oracio Miles DO DATE: March 20, 2025 TIME: 12:44 PM CC: Newton Tovar MD CC: Rukhsana Mckinnon [facility] 03-20-2025 History and physical note Images from the original note were not included. General Surgery Consult REASON FOR VISIT Tiffanie Cortez is a 34 year old female who is scheduled for a consult at the request of Rukhsana Mckinnon for Consult (Calculus of gallbladder with cholecystitis without biliary obstruction, unspecified cholecystitis acuity ). My final recommendations will be communicated back to the requesting physician by the way of the shared medical record, fax, or via US Mail Recording using i[employer]ub[employer] software for draft documentation of the visit was discussed with the patient/authorized factory representative; all questions welcomed and answered. Patient/authorized factory representative agreed to proceed History of Present Illness: Tiffanie Cortez is a 34-year-old female, , presenting for evaluation of a recent gallbladder attack. Tiffanie reports experiencing her first gallbladder attack recently, which she describes as pretty severe. The pain was diffuse across the abdomen, with significant discomfort across the upper abdomen. She suspects the attack was triggered by consuming fried fish around noon, with pain onset approximately 2 hours later. The pain intensified over several hours, becoming severe by 21:00 and lasting until around midnight, at which point she was able to fall asleep. She has not experienced any further episodes or pain since this incident. She is currently and is hoping to avoid induction or surgery at this time. She is due in ~2 weeks. PAST MEDICAL HISTORY Diagnosis Date Abnormal glandular Papanicolaou smear of cervix 2000 Bilateral ovarian cysts depression Gestational diabetes mellitus, class A1 (HCC) 03/15/2021 Gestational diabetes mellitus, class A2 (HCC) 03/15/2021 03/14/23-1hr GCT elevated, did not complete 3hr GTT because she was sick after this last . Will presume GDM and testing for duration of . Growth US every 4 weeks. Kristen Farr APRN.RICKYM History of drug use meth and heroine. Denies use x 1 year 09/2020 History of hepatitis C 11/26/2020 Migraine without aura and without status migrainosus, not intractable PAST SURGICAL HISTORY Procedure Laterality Date CRYO CAUTERY CERVIX 2000 FAMILY HISTORY Problem Relation Age of Onset Hypertension Mother Hypertension Father No Known Problems Brother No Known Problems Maternal Grandmother Heart Attack Maternal Grandfather No Known Problems Paternal Grandmother Heart Attack Paternal Grandfather No Known Problems Daughter Social History Tobacco Use Smoking status: Former Current packs/day: 0.00 Types: Cigarettes Start date: 09/28/2012 Quit date: 09/28/2020 Years since quittin.4 Smokeless tobacco: Never Tobacco comments: Pt uses nicotine vape Vaping Use Vaping status: current everyday user Substances: Nicotine (2%) Substance Use Topics Alcohol use: Not Currently Drug use: Not Currently Types: Amphetamines, Heroin The patient has the following: Problem List Noted Noted By Resolved Resolved By Anxiety during (HCC) 09/20/2024 Zena Fontenot APRN.CNP No Overview Signed 09/20/2024 10:03 AM by Zena Fontenot APRN.CNP September 20, 2024 Reports increased anxiety. No medication at this time. Has taken Prozac in the past. Follows with Kalyani through psych. Reports anxiety has increased with ADHD. Denies thoughts of self harm. Mental health resources provided. Has upcoming appointment with Kalyani. Zena Fonteont APRN.CNP Attention deficit hyperactivity disorder (ADHD) 09/20/2024 Zena Fontenot APRN.CNP No headache in first trimester (HCC) 09/20/2024 Zena Fontenot APRN.CNP No Overview Signed 09/20/2024 10:06 AM by Zena Fontenot APRN.CNP September 20, 2024 Has added Magnesium. Zena Fontenot APRN.CNP Constipation during in third trimester (HCC) 09/20/2024 Zena Fontenot APRN.CNP No Overview Signed 09/20/2024 10:10 AM by Zena Fontenot APRN.MONICA September 20, 2024 Discussed Colace. Zena Fontenot APRN.CNP History of joint pain 09/20/2024 Zena Fontenot APRN.CNP No Overview Signed 09/20/2024 10:12 AM by Zena Fontenot APRN.CNP September 20, 2024 Taking Gabapentin and Meloxicam. Discussed recommendation of discontinuing Meloxicam use. Discussed limited data on Gabapentin during and recommend reaching out to prescribed for alternative options Zena Fontenot APRN.CNP Nausea and vomiting during (HCC) 09/20/2024 Zena Fontenot APRN.CNP No Heartburn during in first trimester (HCC) 09/20/2024 Zena Fontenot APRN.CNP No Overview Signed 09/20/2024 10:14 AM by Zena Fontenot APRN.MONICA September 20, 2024 Discussed Tums vs Pepcid. Zena Fontenot APRN.MONICA Hip dysplasia, acquired, right 06/18/2024 Mamie Baxter PA-C No Vapes nicotine containing substance 09/16/2022 Gin Esquivel, RN No Overview Addendum 09/20/2024 10:11 AM by Zena Fontenot APRN.MONICA September 20, 2024 Reviewed risks and encouraged cessation. Resources provided. Actively decreasing amount of nicotine. Zena Fontenot APRN.MONICA 09/16/2022atient is currently vaping nicotine. She is trying to cut down on the amount of vaping. I have discussed the risk of vaping nicotine during and advised her to quit. I have provided her with the [place] tobacco quit line number and also discussed [facility]'s tobacco cessation program. TKRN History of gestational diabetes in prior , currently (HCC) 06/28/2021 Kristen Farr APRN.CNM No Overview Addendum 09/20/2024 9:54 AM by Zena Fontenot APRN.ELEVATOR SERVICE MECHANIC September 20, 20242020 diet controled 2022 insulin controlled Zena Fontenot APRN.ELEVATOR SERVICE MECHANIC History of hepatitis C 11/26/2020 Christian Neri MD No Overview Addendum 10/07/2024 10:43 AM by Qi Plummer MD October 07, 2024 Hep C RNA neg. Ab positive c/w previous infection, no current infection. Qi Plummer MD 11/26/20: 4 yrs ago + viral load, most recent labs indicated negative viral load. Christian Urias MD History of depression 10/01/2020 Gin Esquivel, RN No Overview Addendum 09/20/2024 10:01 AM by Zena Fontenot APRN.ELEVATOR SERVICE MECHANIC September 20, 2024 Denies concerns for depression at this time. Zena Fontenot APRN.MONICA 09/16/2022t has a history of anxiety/depression diagnosed in 2016 [facility] She has been off medication for 1 week. She is considering going back on propanolol. Discussed increased risks of depression during and and importance of reporting the development or worsening of symptoms should they occur. Pt denies ever having any suicidal thoughts or tendencies or thoughts of hurting others. I have advised her to talk with her counselor regarding medication during . TKRN History of cryosurgery of cervix complicating (HCC) 10/01/2020 Gin Esquivel, RN No Overview Signed 10/01/2020 3:58 PM by Gin Esquivel (Rn) 10/01/2020 Patient states she has a history of [place] [address] Sanders who is now retired. TKRN History of intravenous drug use in remission 10/01/2020 Gin Esquivel RN No Overview Addendum 09/20/2024 10:01 AM by Zena Fontenot APRN.ELEVATOR SERVICE MECHANIC September 20, 2024 5 years sober - used Meth and Heroin in the past. Is in therapy at [facility] in [facility]. Denies concerns for relapse at this time. Zena Fontenot APRN.MONICA 09/16/2022atient is obese. Patient has a history of drug use in the past. Has used meth and heroin. She states she has not used any drugs since November 04, 2019. She did have counseling at [facility] at one time. No longer attending counseling there. TKRN Supervision of high risk , antepartum (HCC) 10/01/2020 Gin Esquivel, GRANT No Overview Signed 09/20/2024 10:10 AM by Zena Fontenot APRN.ELEVATOR SERVICE MECHANIC Care Checklist Vaccines: [] Flu vaccine [] declined [] RSV vaccine 32 0/7 - 36 6/7 (May - Oct) [] declined [] COVID vaccine [] declined [] TDaP 27-36 [] declined First trimester: [x] Dating US [] 1st tri labs [x] Pap smear [] Carrier screening - considering [] declined [] NIPT screening - considering [] declined [] First trimester anatomy scan [] declined [] universal ASA ordered (start 12w-16w) [] declined [] M Power Consult [] not indicated [] declined Second trimester: [] Anatomy scan [] Mode of Delivery - [] Feeding - [] Pump ordered [] Diabetes screen [] CBC, RPR [] Behavioral Health Screening Third trimester (28-30 weeks): [] Consent [] Contraception [] Manager Car [] TeamBirth handout Third trimester (36-40 weeks): [] GBS [] Presentation - [] Scheduled [] yes - Hibiclens, pre-op instructions, CBC, T&S ordered [] no [] H&P [] Preferences worksheet [] Scanned in EMR [] Patient to bring copy to hospital [] Declined Chronic pain of both hips 05/03/2024 Dyana Collazo, PT 10/04/2024 Rukhsana Mckinnon MD Gestational diabetes mellitus, class A2 (HCC) 03/15/2021 Christian Neri MD 09/20/2024 Zena Fontenot APRN.ELEVATOR SERVICE MECHANIC Overview Addendum 03/14/2023 3:33 PM by Kristen Farr APRN.CNM 03/14/23-1hr GCT elevated, did not complete 3hr GTT because she was sick after this last . Will presume GDM and testing for duration of . Growth US every 4 weeks. Kristen Farr APRN.CNM Abnormal glucose in , antepartum (HCC) 11/26/2020 Christian Neri MD 06/28/2021 Kristen Farr APRN.CNM Overview Signed 11/26/2020 1:07 PM by Christian Neri 11/26/20: failed 1hr GCT, 3hr GTT ordered. Christian Urias MD MEDICATIONS Current Outpatient Medications Medication Sig Dispense Refill FERROUS SULFATE DRIED ORAL Take by mouth once daily. Mg unknown FLUoxetine (PROZAC) 20 mg capsule Take 1 capsule by mouth once daily. 30 capsule 1 gabapentin (NEURONTIN) 300 mg capsule Take 1 capsule by mouth three times a day for 60 days. 90 capsule 1 acetaminophen (TYLENOL EXTRA STRENGTH) 500 mg tablet Take 1 tablet by mouth every 6 hours as needed for pain. 30 tablet 0 Magnesium Oxide 420 mg tab Take 1 tablet by mouth once daily. 100 tablet 2 aspirin, enteric coated (ECOTRIN LOW STRENGTH) 81 mg EC tablet Take 1 tablet by mouth once daily. 90 tablet 3 No current facility-administered medications for this visit. CURRENT ALLERGIES ALLERGIES No Known Allergies REVIEW OF SYSTEMS PAIN ASSESSMENT: Pain Pain Level: 9 Pain Location: Abdomen-Mid Upper Description: Sharp, Dull Duration Amount of Time: 4 Duration Units: Days Frequency: Intermittent GENERAL: No weight loss, malaise or fevers. RESPIRATORY: Negative for cough, hemoptysis, wheezing, dyspnea or shortness of breath. CARDIOVASCULAR: Negative for chest pain, leg swelling, or palpitations. GI: No current abdominal pain, but when episode occurred the pain was 9-10/10. No current nausea, vomiting, or change in bowel habits. PHYSICAL EXAMINATION BP 115/80 Pulse 77 Ht 5' 8.701 (1.75m) Wt 207 lb (93.9kg) LMP 07/08/2024 BMI 30.84 kg/(m^2). General Appearance: Well appearing, alert, in no acute distress, well-hydrated, well nourished. Lungs: Unlabored breathing on room air Heart: RR Abdomen: Gravid uterus, non-ttp in bilateral upper quadrants. No guarding or rebound tenderness. Participation of a fellow, resident, medical student, or advanced practice provider student in performing the sensitive examination was discussed with the patient or authorized factory representative. The patient or authorized factory representative has agreed to proceed with the sensitive examination. Diagnostic tests reviewed for today's visit: Most recent imaging and labs reviewed. RUQ US obtained at OSH Liver: unremarkable, measures 14.3cm Gallbladder: There is a 1.7cm stone in the dependent portion of the gallbladder. There is no gallbladder wall thickening or pericholecystic fluid. Espinoza's sign = negative Common bile duct = 2mm Pancreas: the visualized portion of the pancreas is normal Kidneys: The right kidney measures 13.3cm Assessment ASSESSMENT Biliary colic (primary encounter diagnosis) Symptomatic cholelithiasis Gravid uterus at term size (hcc) RECOMMENDATION 1. Calculus of gallbladder with cholecystitis without biliary obstruction, unspecified cholecystitis acuity (K80.10) 1. Biliary colic (K80.50) Symptomatic cholelithiasis (K80.20) Patient experienced a severe episode of biliary colic after consuming fried fish, lasting several hours. Ultrasound revealed a gallstone approximately 2 cm in size located in the neck of the gallbladder. No subsequent episodes reported. - Educated patient on the pathophysiology of gallstones and the potential for recurrent episodes. - Advised dietary modifications to avoid greasy, fatty, and fried foods to minimize the risk of future attacks. - Monitor for any recurrent episodes before delivery; instructed to contact the clinic if another attack occurs. - Plan to reassess and discuss cholecystectomy . 2. Gravid uterus at term size (HCC) (Z34.90) Patient is at term gestation and prefers to avoid induction. Monitor for any gallbladder attacks that could potentially induce early labor. Medical Decision Making: Medical Decision Making Level: 1 - N/A Oracio Miles DO DATE: March 20, 2025 TIME: 12:44 PM CC: Newton Tovar MD CC: Rukhsana Mckinnon documented in this encounter [facility] 03-20-2025 Instructions Oracio Miles DO - 03/20/2025 9:00 AM EDT We discussed your gallbladder and recent gallstone attack: - You experienced a severe gallbladder attack after eating fried fish, which lasted several hours. This was your first episode, and you have not had any pain or issues since. - Imaging showed a gallstone approximately 2 centimeters in size located in the neck of your gallbladder. This likely caused the symptoms during your attack. - Gallstones are common, but symptoms occur when stones block the gallbladder's ducts. Foods high in fat, grease, or oil can trigger future attacks. - To reduce the risk of another attack, avoid greasy, fatty, fried, or saucy foods until after your delivery. - If you experience another attack before delivery, please call our office immediately, as a severe attack could lead to significant inflammation and potentially trigger early labor. We discussed treatment options for your gallstones: - There is no treatment to dissolve gallstones; the primary option is gallbladder removal (cholecystectomy). - Since you are currently , we will monitor your symptoms for now. After delivery, we can discuss whether to continue watchful waiting or proceed with gallbladder removal. - If you decide to proceed with surgery, it is typically scheduled about 6 weeks after delivery. Next steps: - Avoid high-fat, greasy, or fried foods to minimize the risk of another attack. - Call our office if you experience another gallbladder attack or have any new or worsening symptoms. - We will follow up after your delivery to reassess your symptoms and discuss treatment options. Please let us know if you have any further questions or concerns. documented in this encounter [facility] 03-18-2025 Telephone encounter Note Please schedule with in [place] this . Rukhsana Mckinnon MD [facility] 03-18-2025 Miscellaneous Notes Please schedule with in [place] this . Rukhsana Mckinnon MD Please file consult order. Earl Cummings RN documented in this encounter [facility] 03-18-2025 Telephone encounter Note Please file consult order. Earl Cummings RN [facility] 03-18-2025 Radiology Diagnostic study note [facility] Imaging Services [address] [place] [address] [id number] Abdomen Limited MR#: [id number] Acct: [id number] Name: TIFFANIE CORTEZ Rep #: [id number] : 1990 F 34 From: George Fernandes MD PCP: Status: REG CLI Study:Abdomen Limited Date of Exam: 10/12 Exam# [id number] Ordering Dr: Boni Farr CNM PROCEDURE: ABDOMEN LIMITED 03/18/2025 REASON FOR EXAM: RUQ PAIN TECHNIQUE: ABDOMEN LIMITED COMPARISON: None FINDINGS: Liver: Unremarkable, measures 14.3 cm Gallbladder: There is a 1.7 cm stone in the dependent portion of the gallbladder. There is no gallbladder wall thickening or pericholecystic fluid. Espinoza's sign = negative. Common bile duct: 2 mm . Pancreas: the visualized portion of the pancreas is barbara. L Kidneys: The right kidney measures 13.3 cm. US/Abdomen Limited IMPRESSION: There is cholelithiasis, without ultrasonographic evidence of acute cholecystitis. Reading Location: [facility] CC: LIA Farr ~ Freight Checker: Signed [facility] 03-18-2025 History and physi [place] note Note Date/Time March 17, 2025 10:48pm [facility] Medical Records Department [address] [place] [address] OB Triage Physician Note 03/17/259 MR#: [id number] Acct: [id number] Name: TIFFANIE CORTEZ Rep #:[id number] : 1990 34 From: Kristen CLARK PCP: Status:REG CLI Y Location: IX622-3 HPI - General HPI Narrative TIFFANIE CORTEZ, is a 34 F who presents [facility] Medical History (Updated 03/17/25 @ 22:46 by Kristen Farr CNM) Anxiety Gestational diabetes 34 weeks gestation of Vaginal delivery Headache Hepatitis Depression Home Medications ?Medication ?Instructions ?Recorded ?Last Taken ?Type acetaminophen 500 mg tablet 1,000 mg (2 x 500 mg) PO Q 6H PRN 05/06/23 03/17/25 Rx PRN Pain 1-10 Or Fever #0 tabs fluoxetine 20 mg capsule 20 mg PO DAILY dep 03/17/25 Unknown History gabapentin 300 mg capsule 300 mg PO TID joint pain Unknown History Allergy/AdvReac Type Severity Reaction Status Date / Time No Known Allergies Allergy Verified 03/17/25 21:37 Surgical History History of gynecologic surgery Social History Smoking Status: Former smoker History Elective abortions Hx Para 1 Spontaneous abortions Hx # Term Pregnancies Ectopic pregnancies Hx # Pregnancies Multiple births # of living children Physical Exam Const alert and oriented x3 General Appearance: cooperative Orientation / Consciousness: awake, oriented to person, oriented to place and oriented to time Exam Limitations: no limitations HEENT normocephalic Head and Scalp: normal to inspection, normocephalic and atraumatic Face and Sinus: normal facial exam Eyes General Eye: normal appearance of both eyes Neck full ROM Chest Chest: symmetrical chest wall rise Resp normal respiratory effort and normal air movement Auscultation: clear to auscultation bilaterally Cardio regular rate, regular rhythm, S1 normal heart sound, S2 normal heart sound, no murmurs, no rub, no gallops and no clicks GI normal to inspection, nondistended, normoactive bowel sounds Palpation: soft and tender LUQ (Tenderness upon palpation), RUQ and periumbilical (Bilateral abdominal palpation radiates midline, no rebound) appearance of the vagina normal Bladder / Kidney Exam: no CVA tenderness Manual OB Exam: presentation cephalic, dilated 1, effaced 50, station -3 and other Back/Spine normal ROM Extremity normal to inspection and full ROM Skin no rashes or lesions noted Neuro oriented x3, CN's II-XII intact bilaterally and moves all extremities Sensorium / Orientation: awake, alert and oriented to person Motor Exam: clonus absent Deep Tendon Reflexes: Rt Patellar (L4): 2+ and Lt Patellar (L4): 2+ NST FHR Rate Baby A Baseline: 130 Variability:: Moderate Accelerations:: 15 x 15 Decelerations:: None NST Reactive:: Yes Uterine Activity:: Irregular Assessment & Plan (1) Hepatitis C antibody positive in blood: COMMENT: viral load negative 10/10/22 (2) Abdominal pain affecting : (3) 36 weeks gestation of : (4) History of intravenous drug use: PLAN: Plan 1) CBC, CMP, uric acid, urine P/C ratio, amylase, lipase, urinalysis, urine culture. RUQ abdominal ultrasound in am after NPO for 6 hr 2) 1 Liter LR 3) NPO 4) Tylenol 1 gram PO once 5) Zofran 4mg IVP 6) consulted regarding bilateral upper quadrant abdominal pain with no signs of labor. Will continue to observe over night at this time 03/17/25 [id number] <Electronically signed by Kristen Farr CNM> Date _ Kristen Farr CNM Cosigner Signature (if applicable): Date CC: LIA Farr ~ Signed [facility] Work Phone: 1(336) 137-120606-30-2025 Evaluation note* Diagnosis Onset Date Resolution Status Admit Date 36 weeks gestation of acut e March 17, 2025 9:20pm Abdominal pain affecting acute March 17, 2025 9:20pm Hepatitis C antibody positiv e in blood acute March 17, 2025 9:20pm History of intravenous drug use acut e March 17, 2025 9:20pm [facility] Work Phone: 1(342) 891-725206-30-2025 History and physical note [facility] Medical Records Department [address] [place] [address] OB Triage Physician Note 03/17/259 MR#: [id number] Acct: [id number] Name: TIFFANIE CORTEZ Rep #:[id number] : 1990 34 From: Kristen CLARK PCP: Status:REG CLI Y Location: [place] [address] HPI - General HPI Narrative TIFFANIE CORTEZ, is a 34 F who presents [facility] Medical History (Updated 03/17/25 @ 22:46 by Kristen Farr CNM) Anxiety Gestational diabetes 34 weeks gestation of Vaginal delivery Headache Hepatitis Depression Home Medications ?Medication ?Instructions ?Recorded ?Last Taken ?Type acetaminophen 500 mg tablet 1,000 mg (2 x 500 mg) PO Q 6H PRN 05/06/23 03/17/25 Rx PRN Pain 1-10 Or Fever #0 tabs fluoxetine 20 mg capsule 20 mg PO DAILY dep 03/17/25 Unknown History gabapentin 300 mg capsule 300 mg PO TID joint pain Unknown History Allergy/AdvReac Type Severity Reaction Status Date / Time No Known Allergies Allergy Verified 03/17/25 21:37 Surgical History History of gynecologic surgery Social History Smoking Status: Former smoker History Elective abortions Hx Para 1 Spontaneous abortions Hx # Term Pregnancies Ectopic pregnancies Hx # Pregnancies Multiple births # of living children Physical Exam Const alert and oriented x3 General Appearance: cooperative Orientation / Consciousness: awake, oriented to person, oriented to place and oriented to time Exam Limitations: no limitations HEENT normocephalic Head and Scalp: normal to inspection, normocephalic and atraumatic Face and Sinus: normal facial exam Eyes General Eye: normal appearance of both eyes Neck full ROM Chest Chest: symmetrical chest wall rise Resp normal respiratory effort and normal air movement Auscultation: clear to auscultation bilaterally Cardio regular rate, regular rhythm, S1 normal heart sound, S2 normal heart sound, no murmurs, no rub, no gallops and no clicks GI normal to inspection, nondistended, normoactive bowel sounds Palpation: soft and tender LUQ (Tenderness upon palpation), RUQ and periumbilical (Bilateral abdominal palpation radiates midline, no rebound) appearance of the vagina normal Bladder / Kidney Exam: no CVA tenderness Manual OB Exam: presentation cephalic, dilated 1, effaced 50, station -3 and other Back/Spine normal ROM Extremity normal to inspection and full ROM Skin no rashes or lesions noted Neuro oriented x3, CN's II-XII intact bilaterally and moves all extremities Sensorium / Orientation: awake, alert and oriented to person Motor Exam: clonus absent Deep Tendon Reflexes: Rt Patellar (L4): 2+ and Lt Patellar (L4): 2+ NST FHR Rate Baby A Baseline: 130 Variability:: Moderate Accelerations:: 15 x 15 Decelerations:: None NST Reactive:: Yes Uterine Activity:: Irregular Assessment & Plan (1) Hepatitis C antibody positive in blood: COMMENT: viral load negative 10/10/22 (2) Abdominal pain affecting : (3) 36 weeks gestation of : (4) History of intravenous drug use: PLAN: Plan 1) CBC, CMP, uric acid, urine P/C ratio, amylase, lipase, urinalysis, urine culture. RUQ abdominal ultrasound in am after NPO for 6 hr 2) 1 Liter LR 3) NPO 4) Tylenol 1 gram PO once 5) Zofran 4mg IVP 6) consulted regarding bilateral upper quadrant abdominal pain with no signs of labor. Will continue to observe over night at this time 03/17/25 [id number] CNM> Date _ Kristen Farr CNM Cosigner Signature (if applicable): Date CC: LIA Farr ~ Signed [facility]06-18-2025 Progress note* Quick Notes - Kervin Ovalle APRN.CNM - 03/05/2025 11:33 AM EDT S: Tiffanie Cortez is a 34 year old female who presents at 34 weeks gestation for a routine visit. Positive movements. Denies any cramps or contractions. Denies headache, visual changes, chest pain, shortness of breath, vaginal bleeding, leakage of fluid, or dysuria. 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 Restarted Prozac last month. C/O concern for post depression/anxiety. O: See flow sheet Gen: No apparent distress Abd: Gravid, nontender S=D ASSESSMENT/PLAN: 1. 34 weeks gestation of 2. Heartburn during in third trimester 3. Anxiety during 4. History of hepatitis C - Heartburn decreased - did not start Pepcid to date - Continue vitamin / ASA - Continue Prozac 20 mg PO daily - PTL precautions and kick counts reviewed - RTO 2 weeks or sooner if needed Kervin Ovalle APRN.CNM [facility]06-18-2025 Miscellaneous Notes* Quick Notes - Kervin Ovalle APRN.CNM - 03/05/2025 11:33 AM EDT S: Tiffanie Cortez is a 34 year old female who presents at 34 weeks gestation for a routine visit. Positive movements. Denies any cramps or contractions. Denies headache, visual changes, chest pain, shortness of breath, vaginal bleeding, leakage of fluid, or dysuria. 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 Restarted Prozac last month. C/O concern for post depression/anxiety. O: See flow sheet Gen: No apparent distress Abd: Gravid, nontender S=D ASSESSMENT/PLAN: 1. 34 weeks gestation of 2. Heartburn during in third trimester 3. Anxiety during 4. History of hepatitis C - Heartburn decreased - did not start Pepcid to date - Continue vitamin / ASA - Continue Prozac 20 mg PO daily - PTL precautions and kick counts reviewed - RTO 2 weeks or sooner if needed Kervin Ovalle APRN.CNM [facility] Instructions* Patient Instructions* Jonelle Higuera LPN - 03/05/2025 11:14 AM EDT SEQUENTIAL SCREENINGS The [facility] offers sequential screenings for women who are interested in screenings for chromosomal abnormalities and certain defects during a . The sequential screen combinesultrasound and blood tests to determine the risk of chromosomal abnormalities, including Down's Syndrome (Trisomy 21) and Trisomy 18, as well as open neural tube defects including spina bifida. Ultrasound examination is performed between 11 weeks and 13 weeks gestational age. Blood tests are drawn after the ultrasound and again later in the between 15 and 21 weeks gestational age. Please let your physician know if you are interested in this testing. It will require an appointment withour body shop technician. This is not an ultrasound performed by a physician in our office during a routine visit. SIGNS AND SYMPTOMS OF LABOR 1. Contractions every 10 minutes or more often 2. Clear, pink, or brownish fluid (water) leaking from vagina 3. Feeling that baby is pushing down, pressure 4. Low, dull backache 5. Cramps that feel like a period 6. Cramps with or without diarrhea If you notice any of the above symptoms, contact our office at [phone] and ask to speak with anurse. After hours, you can call doctors registry at [phone] OR call [facility] at [phone] ask to have the doctor education analyst paged. If you consider this an emergency, dial 9--8 or go to your nearest emergency department. NEED HELP? Are you dealing with a violent or abusive relationship? Are you a victim of rape or sexual assult? Call [facility] ([place]) 24 hour Crisis Hotline: 206.421.7836 or 948-889-8924. MANUAL Your Guide to a Healthy manual is now on-line. Visit [email or web address] to download your free copy documented in [facility] Telephone encounter Note * Telephone Encounter - Zaina Murillo RN - 02/21/2025 11:24 AM EDT 32w4d Pt calls asking if she should be concerned about extra movement. Advised Pt that we are not concerned about an overly active baby & that we are concerned about a baby whom has decrease movement/ <6-10 kick counts in an hr, or with LOF/vaginal bleedingor abdominal pain. Informed Pt that her baby being active is likely due to her being active or due to what she's ate/drank and of no concern at this time. Pt voiced understanding. Zaina Murillo RN [facility]06-06-2025 Miscellaneous Notes* Telephone Encounter - Zaina Murillo RN - 02/21/2025 11:24 AM EDT 32w4d Pt calls asking if she should be concerned about extra movement. Advised Pt that we are not concerned about an overly active baby & that we are concerned about a baby whom has decrease movement/ <6-10 kick counts in an hr, or with LOF/vaginal bleedingor abdominal pain. Informed Pt that her baby being active is likely due to her being active or due to what she's ate/drank and of no concern at this time. Pt voiced understanding. Zaina Murillo, RN documented in this encounter[facility]25 Telephone encounter Note * Telephone Encounter - Jia Delaney LPN - 02/19/2025 8:05 AM EDT Rescheduled visit to 04/07/25. Refills of prozac 20 mg, and gabapentin 300 mg need refilled by 02/22/25 [facility] according to chart. Jia Delaney LPN [facility]06-04-2025 Miscellaneous Notes* Telephone Encounter - Jia Delaney LPN - 02/19/2025 8:05 AM EDT Rescheduled visit to 04/07/25. Refills of prozac 20 mg, and gabapentin 300 mg need refilled by 02/22/25 [facility] according to chart. Jia Delaney LPN documented in this encounterReg[facility]06-[facility]-2025 NoteHNO ID: [id number] Author: KALYANI RIOS APRN.ELEVATOR SERVICE MECHANIC Service: ? Author Type: Nurse Practitioner Type: Progress Notes Filed: 02/17/2025 14:41 Note Text: Patient did not log in for her virtual visit with the provider today.[facility]06-02-2025 History of Present illness Narrative* Kalyani Rios APRN.ELEVATOR SERVICE MECHANIC - 02/17/2025 2:41 PM EDT Patient did not log in for her virtual visit with the provider today. documented in this encounterReg[facility]25 Telephone encounter Note * Telephone Encounter - Eleanor Rocha RN - 02/17/2025 11:53 AM EDT 3rd risk assessment form submitted 02/17/2025. Eleanor Rocha RN [facility]06-02-2025 Miscellaneous Notes* Telephone Encounter - Eleanor Rocha RN - 02/17/2025 11:53 AM EDT 3rd risk assessment form submitted 02/17/2025. Eleanor Rocha RN documented in this encounterReg[facility]-30-2025 NoteHNO ID: [id number] Author: CHRISTIAN NERI MD Service: ? Author Type: Physician Type: Progress Notes Filed: 02/14/2025 14:26 Note Text: NST SUMMARY PROVIDER ASSESSMENT AND INTERPRETATION Tiffanie Cortez is a 34 year old female, , who is at 31w4d with an LAURA of 04/14/2025, by Last Menstrual Period dating method. Indications for NST: Other: tachycardia on doppler Baseline: 140 Variability: Moderate Accelerations: Present 15 X 15 Decelerations: None Contractions: TOCO: None Interpretation: Category I and Reactive SIGNATURE: [facility] History of Present illness Narrative* Christian Neri MD - 02/14/2025 2:08 PM EDT NST SUMMARY PROVIDER ASSESSMENT AND INTERPRETATION Tiffanie Cortez is a 34 year old female, , who is at 31w4d with an LAURA of 04/14/2025, by Last Menstrual Period dating method. Indications for NST: Other: tachycardia on doppler Baseline: 140 Variability: Moderate Accelerations: Present 15 X 15 Decelerations: None Contractions: TOCO: None Interpretation: Category I and Reactive SIGNATURE: Christian Urias MD * Christian Neri MD - 02/14/2025 1:50 PM EDT Patient identified by name and date of . Tiffanie Cortez presents today for a vaccination of Tdap. Patient denies an allergy to latex: yes Patient denies a severe (life-threatening) allergy to a previous dose of Tdap, DTP, DTaP, DT or Td vaccine. Yes Patient denies history of epilepsy or neurological problems: Yes Patient is afebrile and denies being moderately or severely ill: Yes Patient denies history of Guillain-Trafford Syndrome (a severe paralytic illness): Yes Tdap Adacel injection was given without incident. See immunizations for details of immunizations administered today. VIS sheet provided: Yes Provider Dr. Boyce was present in office at time of injection. Hernán Rascon MA documented in this encounterRegency [facility]05-30-2025 NoteHNO ID: [id number] Author: CHRISTIAN NERI MD Service: ? Author Type: Physician Type: Progress Notes Filed: 02/14/2025 14:26 Note Text: Patient identified by name and date of . Tiffanie Cortez presents today for a vaccination of Tdap. Patient denies an allergy to latex: yes Patient denies a severe (life-threatening) allergy to a previous dose of Tdap, DTP, DTaP, DT or Td vaccine. Yes Patient denies history of epilepsy or neurological problems: Yes Patient is afebrile and denies being moderately or severely ill: Yes Patient denies history of Guillain-Trafford Syndrome (a severe paralytic illness): Yes Tdap Adacel injection was given without incident. See immunizations for details of immunizations administered today. VIS sheet provided: Yes Provider Dr. Boyce was present in office at time of injection. Hernán Rascon [facility]05-30-2025 Progress note* Quick Notes - Christian Neri MD - 02/14/2025 1:44 PM EDT DM-Pt doing well. Denies vaginal Bleeding, Leaking fluid, or regular Contractions. Pt reports good movement. Still using tums daily- more at night. Physical Exam: Gen: female in no apparent distress Abd: soft, Gravid. Non tender to palpation. See flow sheet @ 31weeks Assessment & Plan Supervision of high risk , antepartum (HCC) Heartburn during in third trimester ([facility]) Will start pepcid Anxiety during ([facility]) Started prozac - doing well History of hepatitis C Negative testing Maternal care for tachycardia during ([facility]) NST today- doppler showing 190s-200 Dicussed hydration with patient and avoidance of nicotine products - pt states has not eaten/drank today and did use her vape prior to appointment. Anemia during in third trimester ([facility]) Continue po iron 31 weeks gestation of ([facility]) Kick counts and labor reviewed RTO 2 weeks Orders: TDAP VACCINE, AGE 7+ YR (ADACEL, BOOSTRIX) Need for vaccination Orders: TDAP VACCINE, AGE 7+ YR (ADACEL, BOOSTRIX) Christian Urias MD [facility]05-30-2025 Miscellaneous Notes* Quick Notes - Christian Neri MD - 02/14/2025 1:44 PM EDT DM-Pt doing well. Denies vaginal Bleeding, Leaking fluid, or regular Contractions. Pt reports good movement. Still using tums daily- more at night. Physical Exam: Gen: female in no apparent distress Abd: soft, Gravid. Non tender to palpation. See flow sheet @ 31weeks Assessment & Plan Supervision of high risk , antepartum (HCC) Heartburn during in third trimester (HCC) Will start pepcid Anxiety during (HCC) Started prozac - doing well History of hepatitis C Negative testing Maternal care for tachycardia during ([facility]) NST today- doppler showing 190s-200 Dicussed hydration with patient and avoidance of nicotine products - pt states has not eaten/drank today and did use her vape prior to appointment. Anemia during in third trimester ([facility]) Continue po iron 31 weeks gestation of ([facility]) Kick counts and labor reviewed RTO 2 weeks Orders: TDAP VACCINE, AGE 7+ YR (ADACEL, BOOSTRIX) Need for vaccination Orders: TDAP VACCINE, AGE 7+ YR (ADACEL, BOOSTRIX) Christian Urias MD documented in this encounterRegency [facility]05-14-2025 Progress note* Quick Notes - Kervin Ovalle APRN.CNM - 01/29/2025 11:12 AM EDT S: Tfifanie Cortez is a 34 year old female who presents at 29 weeks gestation for a routine visit. Completing GCT today with [facility]. Denies headache, visual changes, chest pain, shortness of breath, vaginal bleeding, leakage of fluid, or dysuria. Feeling well, no complaints. Reports headaches have resolved. O: See flow sheet Gen: No apparent distress Abd: Gravid, non tender ASSESSMENT/PLAN: 1. 29 weeks gestation of 2. Supervision of high risk in second trimester 3. History of hepatitis C 4. History of depression 5. Vapes nicotine containing substance 6. Anxiety during 7. History of gestational diabetes - 1 hour GCT, CBC, and RPR today - Rh positive O+ - TDAP - declines - LARC form reviewed and signed. Patient declines- may desire Nexplanon in future - Depression screen negative - Opioid screen negative - plan form discussed and given to patient. Patient desires unmedicated - PTL precautions and kick counts reviewed - RTO- 2 weeks or sooner if needed Kervin Ovalle APRN.CNM [facility]05-14-2025 Miscellaneous Notes* Quick Notes - Kervin Ovalle APRN.CNM - 01/29/2025 11:12 AM EDT S: Tiffanie Cortez is a 34 year old female who presents at 29 weeks gestation for a routine visit. Completing GCT today with [facility]. Denies headache, visual changes, chest pain, shortness of breath, vaginal bleeding, leakage of fluid, or dysuria. Feeling well, no complaints. Reports headaches have resolved. O: See flow sheet Gen: No apparent distress Abd: Gravid, non tender ASSESSMENT/PLAN: 1. 29 weeks gestation of 2. Supervision of high risk in second trimester 3. History of hepatitis C 4. History of depression 5. Vapes nicotine containing substance 6. Anxiety during 7. History of gestational diabetes - 1 hour GCT, CBC, and RPR today - Rh positive O+ - TDAP - declines - LARC form reviewed and signed. Patient declines- may desire Nexplanon in future - Depression screen negative - Opioid screen negative - plan form discussed and given to patient. Patient desires unmedicated - PTL precautions and kick counts reviewed - RTO- 2 weeks or sooner if needed Kervin Ovalle APRN.CNM documented in this encounterRegency [facility]05-[facility]-2025 Instructions* Patient Instructions* Master Alfaro MA - 01/29/2025 10:54 AM EDT SEQUENTIAL SCREENINGS The [facility] offers sequential screenings for women who are interested in screenings for chromosomal abnormalities and certain defects during a . The sequential screen combinesultrasound and blood tests to determine the risk of chromosomal abnormalities, including Down's Syndrome (Trisomy 21) and Trisomy 18, as well as open neural tube defects including spina bifida. Ultrasound examination is performed between 11 weeks and 13 weeks gestational age. Blood tests are drawn after the ultrasound and again later in the between 15 and 21 weeks gestational age. Please let your physician know if you are interested in this testing. It will require an appointment withour body shop technician. This is not an ultrasound performed by a physician in our office during a routine visit. SIGNS AND SYMPTOMS OF LABOR 1. Contractions every 10 minutes or more often 2. Clear, pink, or brownish fluid (water) leaking from vagina 3. Feeling that baby is pushing down, pressure 4. Low, dull backache 5. Cramps that feel like a period 6. Cramps with or without diarrhea If you notice any of the above symptoms, contact our office at [phone] and ask to speak with anurse. After hours, you can call doctors registry at [phone] OR call [facility] at [phone] ask to have the doctor education analyst paged. If you consider this an emergency, dial 7-6-7 or go to your nearest emergency department. NEED HELP? Are you dealing with a violent or abusive relationship? Are you a victim of rape or sexual assult? Call [facility] ([place]) 24 hour Crisis Hotline: 730.758.2291 or 941-151-4270. MANUAL Your Guide to a Healthy manual is now on-line. Visit [email or web address] to download your free copy documented in this encounterReg[facility] Instructions* Patient Instructions* Chichi Bell APRN.ELEVATOR SERVICE MECHANIC - 01/26/2025 2:48 PM EDT -Increase fluid intake. --Rest as much as possible. - Nasal saline spray, tristen pot, flonase Take the entire course of antibiotics as prescribed. DO NOT stop taking it early, even if you are feeling better. -Monitor for signs of worsening infection: increased temperature, pain in face, ear pain or headaches or increase in nasal congestion/mucous that is not improving. -Educated patient on side effects of medication. Tylenol (generic acetaminophen) 500 mg-2 tabs every 8 hrs. as needed for fever and aches -Sudafed (generic is fine), behind the counter, 2x30 mg tabs twice daily as needed for congestion documented in this encounterRegency [facility]-11-2025 NoteHNO ID: [id number] Author: CHICHI BELL APRN.CNP Service: ? Author Type: Nurse Practitioner Type: Progress Notes Filed: 01/26/2025 14:51 Note Text: Subjective The history is provided by the patient. No sales and marketing director was used. HPI Tiffanie Cortez is a 34 year old female who presents today for CC of Sinus congestion, headache, post nasal drainge, ear pain, dental pain. This started 3 weeks ago and is worsening. She has used tylenol with short term relief. She is currenlty 29 weeks . BP 122/82 Pulse 95 Temp 36.8 ?C (98.2 ?F) (Tympanic) Resp 16 Wt 90.6 kg (199 lb 11.8 oz) LMP 07/08/2024 (Exact Date) SpO2 99% BMI 29.75 kg/m? Social History Tobacco Use Smoking status: Former Current packs/day: 0.00 Types: Cigarettes Start date: 09/28/2012 Quit date: 09/28/2020 Years since quittin.3 Smokeless tobacco: Never Tobacco comments: Pt uses nicotine vape Vaping Use Vaping status: current everyday user Substances: Nicotine (2%) Substance Use Topics Alcohol use: Not Currently Drug use: Not Currently Types: Amphetamines, Heroin PAST MEDICAL HISTORY Diagnosis Date Abnormal glandular Papanicolaou smear of cervix 2000 Bilateral ovarian cysts depression Gestational diabetes mellitus, class A1 (HCC) 03/15/2021 Gestational diabetes mellitus, class A2 (HCC) 03/15/2021 03/14/23-1hr GCT elevated, did not complete 3hr GTT because she was sick after this last . Will presume GDM and testing for duration of . Growth US every 4 weeks. Kristen Farr APRN.CNM History of drug use meth and heroine. Denies use x 1 year 09/2020 History of hepatitis C 11/26/2020 Migraine without aura and without status migrainosus, not intractable I have confirmed and edited as necessary, the [facility] Review of Systems Constitutional: Negative for chills and fever. HENT: Positive for congestion, ear pain and sinus pain. Negative for sore throat. Post nasal drainage Respiratory: Positive for cough. Negative for sputum production, shortness of breath and wheezing. Cardiovascular: Negative for chest pain. Musculoskeletal: Negative for myalgias. Neurological: Positive for headaches. Objective Physical Exam Vitals and nursing note reviewed. HENT: Head: Normocephalic and atraumatic. Right Ear: Tympanic membrane, ear canal and external ear normal. Left Ear: Tympanic membrane, ear canal and external ear normal. Nose: No mucosal edema, congestion or rhinorrhea. Right Sinus: No maxillary sinus tenderness or frontal sinus tenderness. Left Sinus: No maxillary sinus tenderness or frontal sinus tenderness. Mouth/Throat: Pharynx: Uvula midline. No oropharyngeal exudate or posterior oropharyngeal erythema. Cardiovascular: Rate and Rhythm: Normal rate and regular rhythm. Heart sounds: Normal heart sounds. Pulmonary: Effort: Pulmonary effort is normal. Breath sounds: Normal breath sounds. Lymphadenopathy: Head: Right side of head: No submental, submandibular or tonsillar adenopathy. Left side of head: No submental, submandibular or tonsillar adenopathy. Cervical: No cervical adenopathy. Skin: General: Skin is warm and dry. Neurological: Mental Status: She is alert. Psychiatric: Mood and Affect: Affect normal. History and Record Review External record(s) reviewed: prior outpatient record. Findings from review of outpatient records: gestioin, complications Systemic symptoms present included: Headache, dental pain Differential Diagnoses - sinusitis is more likely for the following reason(s): symptoms 3 weeks not improving, suggested by HANDP - viral uri is less likely for the following reason(s): HANDP not suggestive Contributing Factors Chronic conditions affecting care: ASSESSMENT/PLAN: 1. Acute non-recurrent pansinusitis - ICD9: 461.8, ICD10: J01.40 - Will begin treatment with Augmentin 875 mg PO BID for 5 days - The patient should also be given nasal saline - Supportive care with plenty of fluids, rest, and tylenol - Follow up in one week if symptoms persist or worsen. - sudafed as discussed. Diagnosis and treatment plan were discussed and questions were answered to the patient's satisfaction. Pt acknowledged understanding of concepts and follow up plan. Specific signs and symptoms that would indicate the need for higher level of care were discussed in detail warranting prompt ER evaluation. Chichi Bell APRN.[facility] History of Present illness Narrative* Chichi Bell APRN.MONICA - 01/26/2025 2:43 PM EDT Subjective The history is provided by the patient. No sales and marketing director was used. HPI Tiffanie Cortez is a 34 year old female who presents today for CC of Sinus congestion, headache, post nasal drainge, ear pain, dental pain. This started 3 weeks ago and is worsening. She has used tylenol with short term relief. She is currenlty 29 weeks . BP 122/82 Pulse 95 Temp 36.8 C (98.2 F) (Tympanic) Resp 16 Wt 90.6 kg (199 lb 11.8 oz) LMP 07/08/2024 (Exact Date) SpO2 99% BMI 29.75 kg/m Social History Tobacco Use Smoking status: Former Current packs/day: 0.00 Types: Cigarettes Start date: 09/28/2012 Quit date: 09/28/2020 Years since quittin.3 Smokeless tobacco: Never Tobacco comments: Pt uses nicotine vape Vaping Use Vaping status: current everyday user Substances: Nicotine (2%) Substance Use Topics Alcohol use: Not Currently Drug use: Not Currently Types: Amphetamines, Heroin PAST MEDICAL HISTORY Diagnosis Date Abnormal glandular Papanicolaou smear of cervix 2000 Bilateral ovarian cysts depression Gestational diabetes mellitus, class A1 (HCC) 03/15/2021 Gestational diabetes mellitus, class A2 (HCC) 03/15/2021 03/14/23-1hr GCT elevated, did not complete 3hr GTT because she was sick after this last . Will presume GDM and testing for duration of . Growth US every 4 weeks. Kristen Farr APRN.CNM History of drug use meth and heroine. Denies use x 1 year 09/2020 History of hepatitis C 11/26/2020 Migraine without aura and without status migrainosus, not intractable I have confirmed and edited as necessary, the [facility] Review of Systems Constitutional: Negative for chills and fever. HENT: Positive for congestion, ear pain and sinus pain. Negative for sore throat. Post nasal drainage Respiratory: Positive for cough. Negative for sputum production, shortness of breath and wheezing. Cardiovascular: Negative for chest pain. Musculoskeletal: Negative for myalgias. Neurological: Positive for headaches. Objective Physical Exam Vitals and nursing note reviewed. HENT: Head: Normocephalic and atraumatic. Right Ear: Tympanic membrane, ear canal and external ear normal. Left Ear: Tympanic membrane, ear canal and external ear normal. Nose: No mucosal edema, congestion or rhinorrhea. Right Sinus: No maxillary sinus tenderness or frontal sinus tenderness. Left Sinus: No maxillary sinus tenderness or frontal sinus tenderness. Mouth/Throat: Pharynx: Uvula midline. No oropharyngeal exudate or posterior oropharyngeal erythema. Cardiovascular: Rate and Rhythm: Normal rate and regular rhythm. Heart sounds: Normal heart sounds. Pulmonary: Effort: Pulmonary effort is normal. Breath sounds: Normal breath sounds. Lymphadenopathy: Head: Right side of head: No submental, submandibular or tonsillar adenopathy. Left side of head: No submental, submandibular or tonsillar adenopathy. Cervical: No cervical adenopathy. Skin: General: Skin is warm and dry. Neurological: Mental Status: She is alert. Psychiatric: Mood and Affect: Affect normal. History and Record Review External record(s) reviewed: prior outpatient record. Findings from review of outpatient records: gestioin, complications Systemic symptoms present included: Headache, dental pain Differential Diagnoses - sinusitis is more likely for the following reason(s): symptoms 3 weeks not improving, suggested by H&P - viral uri is less likely for the following reason(s): H&P not suggestive Contributing Factors Chronic conditions affecting care: ASSESSMENT/PLAN: 1. Acute non-recurrent pansinusitis - ICD9: 461.8, ICD10: J01.40 - Will begin treatment with Augmentin 875 mg PO BID for 5 days - The patient should also be given nasal saline - Supportive care with plenty of fluids, rest, and tylenol - Follow up in one week if symptoms persist or worsen. - sudafed as discussed. Diagnosis and treatment plan were discussed and questions were answered to the patient's satisfaction. Pt acknowledged understanding of concepts and follow up plan. Specific signs and symptoms that would indicate the need for higher level of care were discussed indetail warranting prompt ER evaluation. Chichi Bell APRN.ELEVATOR SERVICE MECHANIC documented in this encounterRegency [facility]04-11-2025 Miscellaneous Notes* Quick Notes - Vincent Thomas MD - 12/27/2024 11:21 AM EDT SW- Pt doing well. No pain, vb, lof. Good FM PE: Gen- NAD, well appearing Abd- Soft, gravid, NT See flowsheet A/p 24 wk gestation - PNV causing KELLY's per patient. Discussed iron supplementation - Working on quitting vaping - 28 wk labs ordered - RTO 4 wks Vincent Thomas DO documented in this encounterRegency [facility]04-11-2025 Progress note* Quick Notes - Vincent Thomas MD - 12/27/2024 11:21 AM EDT SW- Pt doing well. No pain, vb, lof. Good FM PE: Gen- NAD, well appearing Abd- Soft, gravid, NT See flowsheet A/p 24 wk gestation - PNV causing KELLY's per patient. Discussed iron supplementation - Working on quitting vaping - 28 wk labs ordered - RTO 4 wks Vincent Thomas DO [facility] Work Phone: [phone] 322-841504-11-2025 Instructions* Patient Instructions* Master Alfaro MA - 12/27/2024 10:37 AM EDT SEQUENTIAL SCREENINGS [facility] offers sequential screenings for women who are interested in screenings for chromosomal abnormalities and certain defects during a . The sequential screen combinesultrasound and blood tests to determine the risk of chromosomal abnormalities, including Down's Syndrome (Trisomy 21) and Trisomy 18, as well as open neural tube defects including spina bifida. Ultrasound examination is performed between 11 weeks and 13 weeks gestational age. Blood tests are drawn after the ultrasound and again later in the between 15 and 21 weeks gestational age. Please let your physician know if you are interested in this testing. It will require an appointment withour body shop technician. This is not an ultrasound performed by a physician in our office during a routine visit. SIGNS AND SYMPTOMS OF LABOR 1. Contractions every 10 minutes or more often 2. Clear, pink, or brownish fluid (water) leaking from vagina 3. Feeling that baby is pushing down, pressure 4. Low, dull backache 5. Cramps that feel like a period 6. Cramps with or without diarrhea If you notice any of the above symptoms, contact our office at [phone] and ask to speak with anurse. After hours, you can call doctors registry at [phone] OR call [facility] at [phone] ask to have the doctor education analyst paged. If you consider this an emergency, dial [phone]--7 or go to your nearest emergency department. NEED HELP? Are you dealing with a violent or abusive relationship? Are you a victim of rape or sexual assult? Call [facility] ([place]) 24 hour Crisis Hotline: 170.220.3957 or 060-824-8391. MANUAL Your Guide to a Healthy manual is now on-line. Visit [email or web address] to download your free copy documented in this encounterRegency [facility]04-08-2025 Instructions* Patient Instructions* Kalyani Rios, SAM.ELEVATOR SERVICE MECHANIC - 12/24/2024 10:57 AM EDT TREATMENT PLAN: Restart Prozac 20 mg to address anxiety and also to prevent the significant increase in anxiety that she experienced in with her last . Continue Gabapentin 300 mg three times daily to manage anxiety symptoms. Complete ADHD assessment after 6 months . Follow up in February as scheduled. For those experiencing a suicidal crisis: --call the National Suicide Prevention Lifeline at 988 (907.147.6933) --text the Crisis Text Line (text HOME to 522399) --call 620 and let them know you are having a mental health crisis or go to your nearest Emergency Room for stabilization. --You can also call [employer] at [phone]. -- You may call the department appointment line at [phone] to schedule your appointment. -- Please call my nurse at [phone] or send me a message in [employer] with any questions or concerns between appointments. documented in this encounterRegency [facility]04-08-2025 NoteHNO ID: [id number] Author: KALYANI RIOS APRN.CNP Service: ? Author Type: Nurse Practitioner Type: Progress Notes Filed: 12/24/2024 10:57 Note Text: FOLLOW UP - PSYCHIATRIC PROGRESS NOTE PATIENT: Tiffanie Cortez DATE: December 24, 2024 Visit Type: Virtual Visit utilizing two-way audio and video for at least a portion of the visit. Consent for virtual visit obtained verbally. Confidentiality limitations with virtual visits reviewed with the patient and guardian, if present, who have accepted the risk verbally prior to proceeding with encounter. I have communicated my name and active licensure. The patient's identity and physical location were verified at the time of this visit. Either the patient or their legal factory representative has been informed of the risks and benefits of -- and alternatives to -- treatment through a remote evaluation and consents to proceed with the evaluation remotely. All information is from Patient report except when noted. This evaluation is NOT intended for forensic, disability or child custody purposes. CC: Presenting today for follow up regarding psychiatric medication management. HPI: Treatment Plan from Last Visit on 08/27/2024: TREATMENT PLAN: Do Urine tox screen as ordered for monitoring purposes. Continue Prozac 60 mg daily to address anxiety symptoms. Continue Gabapentin 300 mg three times per day. Obtain ADHD assessment that was completed at the organization where the patient sees her therapist and have faxed to this office. Follow up will be scheduled after reviewing the results of the ADHD assessment. Today Tiffanie shares that she is 24 weeks . This is her third . She has suffered through migraines with each . Shares that she discovered her vitamins were triggering the headaches. Somehow she missed the supplement for 2 days and had no headaches. She has been without the Prozac for a few months now. The first couple of months she was very tired but that has gotten better. Had to stop the arthritis medication due to the risk during . She is trying her best to cope with the pain. Worries about it worsening in the third tri-mester. Her anxiety symptoms during have been manageable. Did experience post anxiety. In agreement to start Prozac 20 mg again. Continues to utilize and tolerate Gabapentin 300 mg TID during . 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 She has a first heifer calf. Very excited about this. 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 Interval Progress: Slightly improved PATIENT DATA: Generalized Anxiety Disorder Scale (CRIS-7) 03/04/2024 08/27/2024 12/24/2024 CRIS - 7 SCORES Score 14 15 8 (0-4) minimal anxiety, (5-9) mild anxiety, (10-14) moderate anxiety, (15-21) severe anxiety Patient Health Questionnaire (PHQ-9) 03/04/2024 08/27/2024 12/24/2024 PHQ-9 Score 17 14 4 (0-4) minimal depression, (5-9) mild depression, (10-14) moderate depression, (15-19) moderately severe depression, (20-27) severe depression PAST MEDICAL HISTORY Diagnosis Date Abnormal glandular Papanicolaou smear of cervix 2000 Bilateral ovarian cysts depression Gestational diabetes mellitus, class A1 03/15/2021 Gestational diabetes mellitus, class A2 03/15/2021 03/14/23-1hr GCT elevated, did not complete 3hr GTT because she was sick after this last . Will presume GDM and testing for duration of . Growth US every 4 weeks. Kristen Farr APRN.CNM History of drug use meth and heroine. Denies use x 1 year 09/2020 History of hepatitis C 11/26/2020 Migraine without aura and without status migrainosus, not intractable PAST SURGICAL HISTORY Procedure Laterality Date CRYO CAUTERY CERVIX 2000 ALLERGIES No Known Allergies Current Outpatient Medications on File Prior to Visit Medication Sig gabapentin (NEURONTIN) 300 mg capsule Take 1 capsule by mouth three times a day for 30 days. PNV Comb #3-Iyhx-Qpdfk 3-FA (COMPLETE CHRIST DHA) 29 mg iron- 1 mg-200 mg cmpk Take 1 Dose by mouth once daily. Magnesium Oxide 420 mg tab Take 1 tablet by mouth once daily. aspirin, enteric coated (ECOTRIN LOW STRENGTH) 81 mg EC tablet Take 1 tablet by mouth once daily. acetaminophen 325 mg cap Take by mouth as directed. No current facility-administered medications on file prior to visit. ROS: See HPI PFSH: See HPI VITAL SIGNS: There were no vitals filed for this visit. Last 3 Encounter BP Readings: Date: BP: 11/29/2024 110/64 11/01/2024 114/68 10/04/2024 110/70 MENTAL STATUS EXAMINATION: Appearance: Casually dressed and groomed Behavior: Behaves appropriately during the encounter Social relatedness: Euthymic Speech/Language: The patient demonstrates appropriate tone, prosody, cory, phonetics (more content not included)...[facility]04-08-2025 History of Present illness Narrative* Kalyani Rios APRN.ELEVATOR SERVICE MECHANIC - 12/24/2024 10:04 AM EDT Images from the original note were not included. FOLLOW UP - PSYCHIATRIC PROGRESS NOTE PATIENT: Tiffanie Cortez DATE: December 24, 2024 Visit Type: Virtual Visit utilizing two-way audio and video for at least a portion of the visit. Consent for virtual visit obtained verbally. Confidentiality limitations with virtual visits reviewed with the patient and guardian, if present, who have accepted the risk verbally prior to proceeding wi th encounter. I have communicated my name and active licensure. The patient's identity and physicallocation were verified at the time of this visit. Either the patient or their legal factory representative has been informed of the risks and benefits of -- and alternatives to -- treatment through a remote evaluation and consents to proceed with the evaluation remotely. All information is from Patient report except when noted. This evaluation is NOT intended for forensic, disability or child custody purposes. CC: Presenting today for follow up regarding psychiatric medication management. HPI: Treatment Plan from Last Visit on 08/27/2024: TREATMENT PLAN: Do Urine tox screen as ordered for monitoring purposes. Continue Prozac 60 mg daily to address anxiety symptoms. Continue Gabapentin 300 mg three times per day. Obtain ADHD assessment that was completed at the organization where the patient sees her therapist and have faxed to this office. Follow up will be scheduled after reviewing the results of the ADHD assessment. Today Tiffanie shares that she is 24 weeks . This is her third . She has suffered through migraines with each . Shares that she discovered her vitamins were triggering the headaches. Somehow she missed the supplement for 2 days and had no headaches. She has been without the Prozac for a few months now. The first couple of months she was very tired but that has gotten better. Had to stop the arthritis medication due to the risk during . She is trying her best to cope with the pain. Worries about it worsening in the third tri-mester. Her anxiety symptoms during have been manageable. Did experience post anxiety. In agreement to start Prozac 20 mg again. Continues to utilize and tolerate Gabapentin 300 mg TID during . 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 She has a first heifer calf. Very excited about this. 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 Interval Progress: Slightly improved PATIENT DATA: Generalized Anxiety Disorder Scale (CRIS-7) 03/04/2024 08/27/2024 12/24/2024 CRIS - 7 SCORES Score 14 15 8 (0-4) minimal anxiety, (5-9) mild anxiety, (10-14) moderate anxiety, (15-21) severe anxiety Patient Health Questionnaire (PHQ-9) 03/04/2024 08/27/2024 12/24/2024 PHQ-9 Score 17 14 4 (0-4) minimal depression, (5-9) mild depression, (10-14) moderate depression, (15-19) moderately severe depression, (20-27) severe depression PAST MEDICAL HISTORY Diagnosis Date Abnormal glandular Papanicolaou smear of cervix 2000 Bilateral ovarian cysts depression Gestational diabetes mellitus, class A1 03/15/2021 Gestational diabetes mellitus, class A2 03/15/2021 03/14/23-1hr GCT elevated, did not complete 3hr GTT because she was sick after this last . Will presume GDM and testing for duration of . Growth US every 4 weeks. Kristen Farr APRN.CNM History of drug use meth and heroine. Denies use x 1 year 09/2020 History of hepatitis C 11/26/2020 Migraine without aura and without status migrainosus, not intractable PAST SURGICAL HISTORY Procedure Laterality Date CRYO CAUTERY CERVIX 2000 ALLERGIES No Known Allergies Current Outpatient Medications on File Prior to Visit Medication Sig gabapentin (NEURONTIN) 300 mg capsule Take 1 capsule by mouth three times a day for 30 days. PNV Comb #9-[id number]-Tnzzf 3-FA (COMPLETE CHRIST DHA) 29 mg iron- 1 mg-200 mg cmpk Take 1 Dose by mouth once daily. Magnesium Oxide 420 mg tab Take 1 tablet by mouth once daily. aspirin, enteric coated (ECOTRIN LOW STRENGTH) 81 mg EC tablet Take 1 tablet by mouth once daily. acetaminophen 325 mg cap Take by mouth as directed. No current facility-administered medications on file prior to visit. ROS: See HPI PFSH: See HPI VITAL SIGNS: There were no vitals filed for this visit. Last 3 Encounter BP Readings: Date: BP: 11/29/2024 110/64 11/01/2024 114/68 10/04/2024 110/70 MENTAL STATUS EXAMINATION: Appearance: Casually dressed and groomed Behavior: Behaves appropriately during the encounter Social relatedness: Euthymic Speech/Language: The patient demonstrates appropriate tone, prosody, cory, phonetics, and syntax Mood: concerned Affect: Full and appropriate to topic Orientation: Person, Place, Time and Situation Associations: Intact and linear, slightly distracted at times since she is home with her two daughters. Hallucinations: None Delusions: None Suicidal Ideation: No suicidal ideation, intent or plan. Homicidal Ideation: No homicidal ideation, intent or plan. Insight: Appropriate Judgment: Appropriate DATA REVIEWED: Psychiatric scales, Electronic medical record, Labs DIAGNOSIS: Recurrent major depressive disorder, in partial remission (primary encounter diagnosis) Panic disorder with agoraphobia Encounter for long-term (current) use of medications Attention and concentration deficit Heroin use disorder, severe, in sustained remission, dependence (hcc) 24 weeks GAF: -70-61 Some mild symptoms or some difficulty in social, occupational, or school functioning, but generally functioning pretty well. TREATMENT PLAN: Restart Prozac 20 mg to address anxiety and also to prevent the significant increase in anxiety that she experienced in with her last . Continue Gabapentin 300 mg three times daily to manage anxiety symptoms. Complete ADHD assessment after 6 months . Follow up in February as scheduled. MEDICATION CHANGES: Prescriptions given The considerations regarding these medications during were reviewed with the patient. Risks and benefits of the medication, including any black box warnings, were discussed with the patient. Patient is aware to reach out with any questions, concerns, or worsening of symptoms prior to the next appointment. Patient educated on risks of substance use in combination with medications and advised that any substance use along with medications may alter their effectiveness. Follow Up: See Treatment Plan Medical Decision Making: Problems: Moderate: 1+ chronic illnesses with change and 2+ stable chronic illnesses Data: Unique source(s) for external note(s) reviewed: 3+ Unique test result(s) reviewed: 3+ Independent interpretation of test from other physician/QHCP Risk: Moderate: Moderate risk from testing/treatment and Drug management Medical Decision Making Level: 4 - Moderate ADD ON PSYCHOTHERAPY CODE : No SIGNATURE: Kalyani Rios APRN.CNP PATIENT NAME: Tiffanie Cortez DATE: December 24, 2024 TIME: 10:05 AM [facility] Telephone encounter Note * Telephone Encounter - Kalyani Rios APRN.CNP - 12/17/2024 9:57 AM EDT 30 day refill provided. Patient has an appointment next week with the provider. [facility]04-01-2025 Miscellaneous Notes* Telephone Encounter - Kalyani Rios APRN.CNP - 12/17/2024 9:57 AM EDT 30 day refill provided. Patient has an appointment next week with the provider. * Telephone Encounter - Jerrica Rockwell - 12/17/2024 8:01 AM EDT Last: 08/27/24 TREATMENT PLAN: Do Urine tox screen as ordered for monitoring purposes. Continue Prozac 60 mg daily to address anxiety symptoms. Continue Gabapentin 300 mg three times per day. Obtain ADHD assessment that was completed at the organization where the patient sees her therapist and have faxed to this office. Follow up will be scheduled after reviewing the results of the ADHD assessment 10/22/24 Patient cx'd 12/05/24 No show letter sent Next: 12/24/24-oddly noted that this is a no show? documented in this encounterReg[facility]-2025 Telephone encounter Note * Telephone Encounter - Jerrica Rockwell - 12/17/2024 8:01 AM EDT Last: 08/27/24 TREATMENT PLAN: Do Urine tox screen as ordered for monitoring purposes. Continue Prozac 60 mg daily to address anxiety symptoms. Continue Gabapentin 300 mg three times per day. Obtain ADHD assessment that was completed at the organization where the patient sees her therapist and have faxed to this office. Follow up will be scheduled after reviewing the results of the ADHD assessment 10/22/24 Patient cx'd 12/05/24 No show letter sent Next: 12/24/24-oddly noted that this is a no show? [facility]03-20-2025 Instructions* Patient Instructions* Kalyani Rios, SAM.ELEVATOR SERVICE MECHANIC - 12/05/2024 9:21 AM EDT Dear Tiffanie, It has come to my attention you missed your appointment on December 05, 2024 without calling to cancel. Our first concern is your health. If your behavioral health concern prompting your appointment is still present, please reschedule soon so that you may receive the appropriate care by calling [phone]. It is important that you notify our office if you are unable to make an appointment. That time can then be used for other patients. If our information is incorrect, please call so we can correct our records. Since you may be new to our office, I want to alert you to our cancellation policy. Becausethere are many patients waiting for appointments, we request that you notify us at least 24 hours in advance of your visit if you are unable to attend. For example, if you are scheduled for 10:00am on a , you must cancel by 10:00am Monday. According to our protocol, if a patient fails to show up for appointments, without calling to cancel, three (3) times within a rolling year period, he/she will be asked to seek care from a provider outside the Department of Psychiatry and Psychology at the [facility]. A rolling year begins with the date of your first No Show incident and goes forward for a 12 month period. This is the 1st time in twelve (12) months that without calling to cancel, you have failed to keep your appointment. It is your responsibility to keep appointments and to alert us in a timely manner when you are unable to do so. Again, if any of this information is incorrect, I apologize in advance. Please call the [facility] Office at [phone] if you have questions about this protocol or question the data on file. If there has been an error, your file will be corrected accordingly. Sincerely, Kalyani Rios APRN.CNP documented in this encounterReg[facility]03-20-2025 NoteHNO ID: [id number] Author: KALYANI RIOS APRN.CNP Service: ? Author Type: Nurse Practitioner Type: Progress Notes Filed: 12/05/2024 09:21 Note Text: Patient did not log in for her virtual visit with the provider today.[facility]03-20-2025 History of Present illness Narrative* Kalyani Rios APRN.CNP - 12/05/2024 9:20 AM EDT Patient did not log in for her virtual visit with the provider today. documented in this encounterReg[facility]03-17-2025 Telephone encounter Note * Telephone Encounter - Eleanor Rocha RN - 12/02/2024 8:48 AM EDT 2nd risk assessment form submitted 12/02/2024. Eleanor Rocha RN [facility]03-17-2025 Miscellaneous Notes* Telephone Encounter - Eleanor Rocha RN - 12/02/2024 8:48 AM EDT 2nd risk assessment form submitted 12/02/2024. Eleanor Rocha RN documented in this encounterReg[facility]03-14-2025 Progress note* Quick Notes - Kervin Ovalle APRN.CNM - 11/29/2024 9:20 AM EDT S: Tiffanie Cortez is a 34 year old female who presents at 20 weeks gestation for a routine visit. movement for the past 2 weeks. Denies visual changes, chest pain, shortness of breath, vaginal bleeding, leakage of fluid, or dysuria. Stated vitamin gives her a headache. Forgot to take it for a couple of days and had no headache. Taking Tylenol as needed for headache. May try gummies. O: See flow sheet Gen: No apparent distress Abd: Gravid, nontender ASSESSMENT/PLAN: 1. Supervision of high risk in second trimester 2. History of gestational diabetes in prior , currently 3. History of hepatitis C - ICD9: V12.09, ICD10: Z86.19 4. History of depression - ICD9: V11.8, ICD10: Z86.59 5. Vapes nicotine containing substance 6. 20 weeks gestation of - Cessation encouraged - patient stated she is cutting down frequency of vape - Try gummies - Continue Neurontin 300 mg PO daily - Continue Magnesium supplementation - Continue ASA - Reviewed appropriate medications/ treatments for headache in - hx of migraines - Anatomy US today - RTO 4 weeks Kervin Ovalle APRN.CNM [facility] Work Phone: 1(226) 505-213303-14-2025 Miscellaneous Notes* Quick Notes - Kervin Ovalle APRN.CNM - 11/29/2024 9:20 AM EDT S: Tiffanie Cortez is a 34 year old female who presents at 20 weeks gestation for a routine visit. movement for the past 2 weeks. Denies visual changes, chest pain, shortness of breath, vaginal bleeding, leakage of fluid, or dysuria. Stated vitamin gives her a headache. Forgot to take it for a couple of days and had no headache. Taking Tylenol as needed for headache. May try gummies. O: See flow sheet Gen: No apparent distress Abd: Gravid, nontender ASSESSMENT/PLAN: 1. Supervision of high risk in second trimester 2. History of gestational diabetes in prior , currently 3. History of hepatitis C - ICD9: V12.09, ICD10: Z86.19 4. History of depression - ICD9: V11.8, ICD10: Z86.59 5. Vapes nicotine containing substance 6. 20 weeks gestation of - Cessation encouraged - patient stated she is cutting down frequency of vape - Try gummies - Continue Neurontin 300 mg PO daily - Continue Magnesium supplementation - Continue ASA - Reviewed appropriate medications/ treatments for headache in - hx of migraines - Anatomy US today - RTO 4 weeks Kervin Ovalle APRN.CNM documented in this encounterReg[facility]03-14-2025 Instructions* Patient Instructions* Luan Lindquist MA - 11/29/2024 9:00 AM EDT SEQUENTIAL SCREENINGS The [facility] offers sequential screenings for women who are interested in screenings for chromosomal abnormalities and certain defects during a . The sequential screen combinesultrasound and blood tests to determine the risk of chromosomal abnormalities, including Down's Syndrome (Trisomy 21) and Trisomy 18, as well as open neural tube defects including spina bifida. Ultrasound examination is performed between 11 weeks and 13 weeks gestational age. Blood tests are drawn after the ultrasound and again later in the between 15 and 21 weeks gestational age. Please let your physician know if you are interested in this testing. It will require an appointment withour body shop technician. This is not an ultrasound performed by a physician in our office during a routine visit. SIGNS AND SYMPTOMS OF LABOR 1. Contractions every 10 minutes or more often 2. Clear, pink, or brownish fluid (water) leaking from vagina 3. Feeling that baby is pushing down, pressure 4. Low, dull backache 5. Cramps that feel like a period 6. Cramps with or without diarrhea If you notice any of the above symptoms, contact our office at [phone] and ask to speak with anurse. After hours, you can call doctors registry at [phone] OR call [facility] at [phone] ask to have the doctor education analyst paged. If you consider this an emergency, dial 9-1-7 or go to your nearest emergency department. NEED HELP? Are you dealing with a violent or abusive relationship? Are you a victim of rape or sexual assult? Call [facility] ([place]) 24 hour Crisis Hotline: 884.981.5901 or 471-490-8907. MANUAL Your Guide to a Healthy manual is now on-line. Visit [email or web address] to download your free copy documented in this encounterReg[facility]02-14-2025 Progress note* Quick Notes - Rukhsana Mckinnon MD - 11/01/2024 10:34 AM EST KJ - VB No. LOF No. CTXS No. Movement: absent. Other c/o: No. Medication list reviewed. Physical Exam See Flow Sheet Gen: no accute distress, well appearing Abd: soft, nontender, gravid A/P 16w4d Estimated Date of Delivery: 04/14/25 Anatomy US scheduled H/o Hepatitis C - viral RNA NEGATIVE Encouraged vaping cessation Rukhsana Mckinnon MD [facility]02-14-2025 Miscellaneous Notes* Quick Notes - Rukhsana Mckinnon MD - 11/01/2024 10:34 AM EST KJ - VB No. LOF No. CTXS No. Movement: absent. Other c/o: No. Medication list reviewed. Physical Exam See Flow Sheet Gen: no accute distress, well appearing Abd: soft, nontender, gravid A/P 16w4d Estimated Date of Delivery: 04/14/25 Anatomy US scheduled H/o Hepatitis C - viral RNA NEGATIVE Encouraged vaping cessation Rukhsana Mckinnon MD documented in this encounterRegency [facility]02-14-2025 Instructions* Patient Instructions* Kristal Paul MA - 11/01/2024 10:21 AM EST SEQUENTIAL SCREENINGS The [facility] offers sequential screenings for women who are interested in screenings for chromosomal abnormalities and certain defects during a . The sequential screen combinesultrasound and blood tests to determine the risk of chromosomal abnormalities, including Down's Syndrome (Trisomy 21) and Trisomy 18, as well as open neural tube defects including spina bifida. Ultrasound examination is performed between 11 weeks and 13 weeks gestational age. Blood tests are drawn after the ultrasound and again later in the between 15 and 21 weeks gestational age. Please let your physician know if you are interested in this testing. It will require an appointment withour body shop technician. This is not an ultrasound performed by a physician in our office during a routine visit. SIGNS AND SYMPTOMS OF LABOR 1. Contractions every 10 minutes or more often 2. Clear, pink, or brownish fluid (water) leaking from vagina 3. Feeling that baby is pushing down, pressure 4. Low, dull backache 5. Cramps that feel like a period 6. Cramps with or without diarrhea If you notice any of the above symptoms, contact our office at [phone] and ask to speak with anurse. After hours, you can call [facility] registry at [phone] OR call [facility] at [phone] ask to have the doctor education analyst paged. If you consider this an emergency, dial or go to your nearest emergency department. NEED HELP? Are you dealing with a violent or abusive relationship? Are you a victim of rape or sexual assult? Call [facility] ([place]) 24 hour Crisis Hotline: 362.358.5924 or 245-389-8305. MANUAL Your Guide to a Healthy manual is now on-line. Visit [email or web address] to download your free copy documented in this encounterReg[facility]01-30-2025 Telephone encounter Note * Telephone Encounter - Jerrica Rockwell - 10/17/2024 11:18 AM EST Last: 08/27/24 TREATMENT PLAN: Do Urine tox screen as ordered for monitoring purposes. Continue Prozac 60 mg daily to address anxiety symptoms. Continue Gabapentin 300 mg three times per day. Obtain ADHD assessment that was completed at the organization where the patient sees her therapist and have faxed to this office. Follow up will be scheduled after reviewing the results of the ADHD assessment. Next: 10/22/24 [facility]01-30-2025 Miscellaneous Notes* Telephone Encounter - Jerrica Rockwell - 10/17/2024 11:18 AM EST Last: 08/27/24 TREATMENT PLAN: Do Urine tox screen as ordered for monitoring purposes. Continue Prozac 60 mg daily to address anxiety symptoms. Continue Gabapentin 300 mg three times per day. Obtain ADHD assessment that was completed at the organization where the patient sees her therapist and have faxed to this office. Follow up will be scheduled after reviewing the results of the ADHD assessment. Next: 10/22/24 documented in this encounterRegency [facility]01-17-2025 Progress note* Quick Notes - Rukhsana Mckinnon MD - 10/04/2024 10:17 AM EST KJ - VB No. LOF No. CTXS No. Movement: absent. Other c/o: No. Medication list reviewed. Physical Exam See Flow Sheet Gen: no accute distress, well appearing A/P 12w4d Estimated Date of Delivery: 04/14/25 NT today Declines NIPT at this time PNB today H/o hepatitis C Encouraged vaping cessation Headaches - continue magnesium Rukhsana Mckinnon MD [facility]01-17-2025 Miscellaneous Notes* Quick Notes - Rukhsana Mckinnon MD - 10/04/2024 10:17 AM EST KJ - VB No. LOF No. CTXS No. Movement: absent. Other c/o: No. Medication list reviewed. Physical Exam See Flow Sheet Gen: no accute distress, well appearing A/P 12w4d Estimated Date of Delivery: 04/14/25 NT today Declines NIPT at this time PNB today H/o hepatitis C Encouraged vaping cessation Headaches - continue magnesium Rukhsana Mckinnon MD documented in this encounterReg[facility]01-17-2025 Instructions* Patient Instructions* Master Alfaro MA - 10/04/2024 9:37 AM EST SEQUENTIAL SCREENINGS The [facility] offers sequential screenings for women who are interested in screenings for chromosomal abnormalities and certain defects during a . The sequential screen combinesultrasound and blood tests to determine the risk of chromosomal abnormalities, including Down's Syndrome (Trisomy 21) and Trisomy 18, as well as open neural tube defects including spina bifida. Ultrasound examination is performed between 11 weeks and 13 weeks gestational age. Blood tests are drawn after the ultrasound and again later in the between 15 and 21 weeks gestational age. Please let your physician know if you are interested in this testing. It will require an appointment withour body shop technician. This is not an ultrasound performed by a physician in our office during a routine visit. SIGNS AND SYMPTOMS OF LABOR 1. Contractions every 10 minutes or more often 2. Clear, pink, or brownish fluid (water) leaking from vagina 3. Feeling that baby is pushing down, pressure 4. Low, dull backache 5. Cramps that feel like a period 6. Cramps with or without diarrhea If you notice any of the above symptoms, contact our office at [phone] and ask to speak with anurse. After hours, you can call doctors registry at [phone] OR call [facility] at [phone] ask to have the doctor education analyst paged. If you consider this an emergency, dial 9--0 or go to your nearest emergency department. NEED HELP? Are you dealing with a violent or abusive relationship? Are you a victim of rape or sexual assult? Call [facility] ([place]) 24 hour Crisis Hotline: 590.424.9517 or 835-111-1973. MANUAL Your Guide to a Healthy manual is now on-line. Visit [email or web address] to download your free copy documented in this encounterReg[facility]01-07-2025 Telephone encounter Note * Telephone Encounter - Michelle Beltrán RN - 09/24/2024 9:10 AM EST risk assessment form submitted September 24, 2024. KAROLINA Taylor, RN OB Clinical Navigator [phone] [facility]01-07-2025 Miscellaneous Notes* Telephone Encounter - Michelle Beltrán RN - 09/24/2024 9:10 AM EST 1st risk assessment form submitted September 24, 2024. KAROLINA Taylor, RN OB Clinical Navigator [phone] documented in this encounterRegency [facility]01-03-2025 Instructions* Patient Instructions* Zena Fontenot APRN.ELEVATOR SERVICE MECHANIC - 09/20/2024 9:10 AM EST Images from the original note were not included. Please select the following link to access the [facility] Your Guide to a Healthy . [email or web address] How SMOKING Affects Your and Your Baby During Smoking during affects you and your baby's health before, during and after your baby is born. The nicotine (the addictive substance in cigarettes), carbon monoxide and numerous other poisons you inhale from a cigarette are carried through your bloodstream and go directly to your baby. Smoking while will: Lower the amount of oxygen available to you and your growing baby Increase your baby's heart rate Increase the chances of miscarriage and stillbirth Increase the risk that your baby is born prematurely and/or born with low weight Increase your baby's risk of developing respiratory problems The more cigarettes you smoke per day, the greater your baby's chances of developing these and other health problems. There is no safe level of smoking for your baby's health. How does secondhand smoke affect me and my baby? Second-hand smoke (also called passive smoke or environmental tobacco smoke) is the combination of smoke from a burning cigarette and smoke exhaled by a smoker. The smoke that barraza off the end of a cigarette or cigar contains more harmful substances ( tar, carbon monoxide, nicotine and others) than the smoke inhaled by the smoker. If you are regularly exposed to second-hand smoke, you increase your and your baby's risk of developing lung cancer, heart disease, emphysema, allergies, asthma and other health problems. Babies exposed to second-hand smoke may also develop reduced lung capacity and are at higher risk for sudden syndrome (SIDS). What happens if I keep smoking after my baby is born? If you continue to smoke after your baby is born, you increase his or her chance of developing certain illnesses and problems, such as: Frequent colds Bronchitis and pneumonia Asthma Chronic coughs Ear infections High blood pressure Learning and behavior problems later in childhood Why should I quit smoking? Smoking is the leading cause of preventable in the [place] By quitting you can: Prolong your life Lower your risk of heart disease Lower your risk of developing lung, throat, mouth, pancreatic and bladder cancer Lower your risk of developing breathing problems such as chronic obstructive pulmonary disease (COPD), asthma and emphysema Lower your risk of developing allergies Raise your energy level Improve your appearance; your skin will wrinkle less and look better, and your fingers and teeth will not be yellow Improve your sense of smell and taste Feel healthier overall, with improved self-esteem Save a lot of money (the average smoker spends $740 a year for cigarettes!) How can I quit smoking? There is no one way to quit smoking that works for everyone, since each person has different smoking habits. Here are some tips: Hide your matches, lighters, and ashtrays. Take a deep breath and hold it for five to ten seconds whenever you get the urge to smoke. Designate your home a non-smoking area. Ask people who smoke not to smoke around you. Drink less caffeinated beverages; caffeine may stimulate your urge to smoke. Also avoid alcohol, asit also may increase your urge to smoke and can be harmful to your baby. Change your habits connected with smoking. If you smoked while driving or when feeling stressed, try other activities to replace smoking. Keep mints or gum (preferably sugarless) on hand for those times when you get the urge to smoke. Stay active to keep your mind off smoking and help relieve tension: take a walk, exercise, read a book or try a new a hobby. Look for support from others. Join a support group or smoking cessation program, such as the [facility] Smoking Cessation Program. For more information, please call . Do not go places where many people are smoking such as bars or clubs, and smoking sections of restaurants. Should I use a nicotine replacement to help me quit? Nicotine gum and patches release nicotine into the bloodstream of the smoker who is trying to quit.Although these products can reduce withdrawal symptoms and decrease cravings in smokers who are trying to quit, nicotine is quite toxic and potentially harmful to the fetus (as well as to the infant who is ). Therefore, these and any other products containing nicotine are not always ecommended for the woman who is trying to quit smoking. They may be prescribed in indivdual cases. How will I feel when I quit? The benefits of not smoking start within days of quitting. After you quit, you and your baby's heart beat will return to normal, and your baby will be less likely to develop breathing problems. You may have symptoms of withdrawal because your body is used to nicotine, the addictive substance in cigarettes. You may crave cigarettes, be irritable, feel very hungry, cough often, get headaches or have difficulty concentrating. The withdrawal symptoms are only temporary. They are strongest when you first quit but will go awaywithin 10 to 14 days. When withdrawal symptoms occur, stay in control. Think about your reasons forquitting. Remind yourself that these are signs that your body is healing and getting used to being without cigarettes. Remember that withdrawal symptoms are easier to treat than the major diseases that smoking can cause. Even after the withdrawal is over, expect periodic urges to smoke. However, these cravings are generally short-lived and will go away whether you smoke or not. Don't Smoke! If you smoke again (called a relapse) do not lose hope. Seventy-five percent of those who quit relapse. Most smokers quit three times before they are successful. If you relapse, don't give up! Plan ahead and think about what you will do next time you get the urge to smoke. (This information is provided by the [facility] and is not intended to replace the medical advice of your doctor or health care provider. Please consult your health care provider for advice about a specific medical condition. For additional written health information, please call the Cancer Answer Line at [facility] Cancer Gantt Monday - Monday 8-4:30 for assistance: [phone]. Or visitwww.[facility].org/health/) [facility] s Smoking Cessation Program The [facility] Smoking Cessation Program is a comprehensive, multifaceted program that can betailored to your individual needs. We offer a variety of services designed to help you throughout the process, including office visits, distance health visits (virtual or telephone), and the eCoach program or pharmacy consultations. To schedule, call [phone] Appointments: An office visit: This is a one-on-one approach where you go to an office and meet with the providerto discuss your options for quitting. Distance health visits: This type of visit can be completed via virtual visit or telephone visit. Virtual visits require a smartphone, tablet or computer with access to a webcam, microphone and Internet connection. You will need to sign up for Xtreme Installs prior to your virtual visit. Telephone visits can be completed via audio only if patient does not have access to the above Pharmacotherapy Nicotine replacement therapy (patches, gum, lozenges, inhalers or nasal spray) Bupropion (Wellbutrin) Chantix Integrative and Lifestyle Medicine Services: Acupuncture Holistic Psychotherapy Meditation Yoga And more The eCoach program Expert tips tailored to you Behavioral replacements Recognizing individual triggers On your schedule Pharmacy consultation You can meet with a pharmacist (either online or in person) to discuss smoking cessation medications, including: Nicotine replacement therapy: gum, patches, lozenges, inhalers or nasal spray Bupropion SR Varenicline (Chantix ) The [place] Cancer Society (ACS) has a section devoted to quitting tobacco with information on where to get help, interactive tools, the relationship of tobacco and cancer, how to keep your kids smoke-free, smoke-free communities and the ACS s annual Great [place] Smokeout. Visit this link for more info: https://www.cancer.org/cancer/risk-prevention/tobacco/wffjf-vixowetf-puuuttl.htm l The [place] Lung Association has tools, tips, support and fact sheets to help you stop smoking or to help a loved one quit. There s also more information about [place] From Smoking , the program we use in our smoking classes at [facility]. Visit this link for more info: https://www.lung.org/q uit-smoking/ydxi-ffwboch-ltjz-smoking The National Cancer Gantt s site, Smokefree.gov, has an abundance of free and accurate resources to encourage smokers to stop: Smokefree apps for your smartphone offer individualized guidance once you input your information You can sign up for the SmokefreeTXT text messaging program, which sends you daily text messages with encouragement, tips and advice to help making quitting easier Create a personalized Quit Plan by choosing a quit date and answering seven questions Take a quiz on your withdrawal symptoms See how you can prepare to quit 9-481-KJBV-NOW is the national portal to a network of state quitlines. Quitlines offer evidence-based support--like counseling, referrals to local programs, and free medication--to people who want toquit tobacco. Nausea Relief: Small frequent meals (every 2-3 hours) Eat something prior to getting out of bed (crackers) Frequent rest periods Sips of clear carbonated drinks Frequent small sips of cold water Change vitamin to folic acid only until nausea improves Popsicles Increase protein, decrease fat intake Avoid strong smells Psychotherapy Services at [facility] Call Behavioral Health Access Line at [phone] to schedule Individual psychotherapy In-person or virtual Wait time for first evaluation may be 12 or more weeks. Wait list spots may be available. Due to the high volume of patients this option is recommended if you are looking for short term acute symptomcoping strategies. 3-211-3-NDLB2NCHD - [place] Maternal Mental Health Hotline If you are in suicidal crisis, please call or text 7-918-167-TALK ( ) or visit the National Suicide Prevention Lifeline website. mchb.[facility]-[facility] service unita.gov If you are in crisis, call 961 or go to your nearest Emergency Department Here are some links for wonderful Providers here in the community and surrounding areas. Do not hesitate to contact their offices, many are offering virtual visits during this time. Psychotherapy Services outside of [facility] Support International Online Provider Directory https://Athersys/ - can assist in finding providers in your area that might be more extensive then the list below. [facility] [place], [place] [address] [place] [address] [facility] [address] [place] [address] [facility] [address] [place] [address] [facility] [address] [place], [place] [id number] Kannan Oakes MD [address] [place] [address] [facility] [address] [facility], [address] [place] [address] [facility] [address] [place] [address] [facility] [place] [phone]/ [phone] Joshua Salcedo [address] [facility] [phone] Aves of Counseling and Mediation Kinjal / Lakshmi [phone] Behavioral health services of [facility] [address] [place] [address]/ [facility] [phone] Micky Delgado, FLOR[place], CLC Bump and Beyond Family Therapy Workshops, telehealth and at home visits. [phone] [facility] 20 locations [place], [place], [place], [place], [place], [place], [place], [facility], [place], [place], [place], [place], [place], [place], [facility], [place], [place] ,[facility], [place], [place],[facility], [facility] [place], [place], [facility], [place], [place] www.abaXX Technology [phone] Psychotherapy resources outside of [facility] are listed below [facility] Web: https://www.Innvotec Surgical/ Support International Online Provider Directory https://Athersys/ [facility] https://CourseAdvisor/ RxResults Behavioral Health and Wellness Web: https://International Electronics Exchange/ DigitalScirocco for Effective Living Web: https://hoozinlivingVigilant Biosciences/ LifeStance Web: https://Life360.Reconnex/location/[facility]/ut[place]/ [facility] Health Web: https://www.[facility].org/ The [facility] Web: https://Hydrocapsule.org/ Recovery Resources Mental health and substance abuse help Web: https://www.Minderests.Nambii & RESOURCES Support International Direct peer support and connection to professional resources Non-Emergency Helpline Phone: / Text: [phone] Web: https://www..net/ Online Provider Directory: https://Athersys/ Online Support Meetings: https://www..net/get-help/qmx-cklkrj-zpzceny-meetings/ DERRICK Baby and Franchise Sales Representative Services Web: https://www.[employer]/ MotherToAiry Labs Expert information on medication use during and Text: [phone] Web: https://Breezy Gardens.Nambii/ NATIONAL REGISTRY FOR PSYCHIATRIC MEDICATIONS Currently studying the safety of antidepressants, ADHD medications and atypical antipsychotics taken during TO PARTICIPATE CALL TOLL-FREE: Web: https://womenentalhealth.org/research/pregnancyregistry/ Support Groups: [facility]- Follow on facebook Baby Bistro support group led by [facility] department Resilient Mamas - Support Group [facility].org The POEM support group [phone] Www.poemonline.org Follow on facebook - POMELANY hancock Online support meetings PSI https://www..net/get-help/ofj-hwefty-ozqjxtj-meetings/ [facility] mommy and me virtual support group 11:30-1pm Support for mothers and new babies and toddlers [facility] education: Childbirth @cc.org or call [phone] CRISIS: CRISIS HOTLINE [phone], 911 or go to the nearest [facility] [phone] / [facility] [phone] https://www.[facility].org Crisis text line text the word HOME to 477368 [facility] [address] shaun [address] [facility] [address] www.inSilica Lyly Rivera clinical counseling [address] [facility] [address] [place] [address] www.GadgetATM.Reconnex [phone] Holding space psychotherapy Aure Meng MRI MANAGER PROTOTYPE ENGINEER MANAGER-S [address] [facility] www.Industry Dive [phone]/ Amy [phone] They all offer virtual. All work with trauma Support groups Online support meetings PSI https://www..net/get-help/sra-yibxfm-udagtzw-meetings/ Here are the support groups they offer: Support of parents of 1 to 4 years old children POEM ( Outreach and Encouragement for Moms) offers free support for mothers experiencing depression, anxiety, and other mood and anxiety disorders. Masks are recommended but not required. No pre-registration required. Babies in arms welcome. meetings now take place on the and Monday of each month Location: [facility] [address] [place] [address] Room 122 (library room) 7-8:00 p.m. When you enter the scientology parking lot off of [address] the entrance door closest to our meeting room is on the front of the building toward the right. For those who are more comfortable with a virtual platform, POEM offers online support group options several days of the week. To register for an online group or to find out more about PO, website at: https://aohio.org/get-help/szjnwsxs-xnvbel-fupest/pomelany-services/ offer a confidential helpline: private Facebook group is called SARAH Hancock Here are the groups they offer: Traumatic childbirth resources: Http://pattch.org/ https://www.[place] Free Classifiedseitant-Art.Reconnex/ Name Location (s) Phone # (s) Services Website [facility] [address] [place], [place] - [phone]; [address] [phone] In-Person GROUPS INDIVIDUAL THERAPY MATERNAL-INFANT MENTAL HEALTH MEDICATION MANAGEMENT PLAY AND ART THERAPY TELETHERAPY https://www.Llesiant.Reconnex/services/ Misty of Sandi CODY? [address] [place], [place] [address] ? [address] [place], [place] [address] ? SMITH [address] [place], [place] [address]? Grief Support Groups Individual Grief Counseling Spiritual Care Memorial Events https://jemal.[facility] hospitaleofmuse.org/grief-services [facility] [address] [place], [place] [address]; ; Email: [email or web address] Women's Mental Health; Couples Counseling; Trauma (EMDR); Stress Management; Mood and Anxiety Related Disorders- and much more https://www.SDC Materials,Inc./ LifeStance Numerous as they have contract providers: access website to find specific providers nearyou Counseling including CBT and EMDR as well as many more modalities; Medication Management; Telehealth and In-Person https://bizHive/ RxResults Behavioral Health and Wellness [address] [place], [place] [address]; [phone] Personal, Family and Group Therapy; Psychological Testing and Diagnosis; Medication Management; Life and Career Coaching; Psychoanalysis; Literacy Testing; Yoga and Meditation https://International Electronics Exchange/ Vocalcom [facility] [address] [facility] [address], [place] [address] [facility] [address] ; [facility], [address] [place] [address]; Office # for both sites: Individual and Couples Counseling https://www.Algebraix Data.Reconnex/paymentinsurance.html OCD & Anxiety [facility] [address] [facility], [address], [place] [address]; Specialize in Cognitive-Behavioral Therapy (CBT) for the treatment of anxiety disorders across the lifespan. TELEHEALTH ONLY. https://ocdandanxietycenteroGroundMetrics.Reconnex/faqs [facility] [address] [facility] 6th [place], [address] Ruth [address] [facility] [place], [address] [facility] [address] [facility] [place], [address] [place] [address] [address]kinson. [place], [place], [address] [address], [address] [place] [address] [facility] [place], [address] [address] [place] [address], [address] Transportation Services To minimize patient barriers, [facility] provides transportation services to patients who qualify. If you are unable to get to your appointment at any of our facilities, please let us know. Need help now? Stop by one of our walk-in clinics to establish behavioral health care. Counseling Indvidual, Group, Couples and Family Counseling and EMDR. Medication Management Case Management benefits applications housing assistance Substance abuse treatment Medication assisted treatment https://www.[facility].org/mental-health/ [facility] OFF[facility] AT [facility] [address] [place] [address] [facility] OFFICE [address] [place] [address] [facility] OFFICE [address] [place] [address] [facility] (at [facility]) [address] [place] [address] [facility] S[facility]E EXCHANGE PROGRAM & HIV SCREENING [address] [place] [address] VAN [facility] EXCHANGE PROGRAM [address] [place] [address] Behavioral Health Urgent Care: [facility] Sites Counseling Indvidual and Group Medication Management Case Management benefits applications housing assistance Substance abuse treatment Medication assisted treatment Employment Services/ Job Training https://theSayHello LLCtxio.org/ Recovery Resources [address] [place], [place] [address]: P: [phone] [address] [facility], [address], [place], [place] [address] P: [phone] Our services include: Addiction Mental Health Treatment Assessment Psychiatry Medical Care Employment Housing Drug and Alcohol Prevention HIV/AIDS Prevention https://www.recres.org/ [facility] [address] [place] [address] [place], [place] [address] [place] [address] [place] [address] [place] [address] [facility] [address] [place] [address] [place] [address] [place] [address] TMS Therapy/ Counseling Psychocological Testing for ADHD Medication Management In-Person/ Telemedicine https://www.Drywave.com/patients-depression Memory & Psychological services [address], [place] [address] Neuropsychological Testing For ADHD https://www.memoryandpsych.com/ The [facility] - Main Office [address] [place] [address] [address] Providing fgbi-oh-umfr and telehealth services. Adult Case Management Community Education and Prevention Employment Outpatient Treatment - Counseling & Psychotherapy Psychiatric Services http://www.ccc.org/ [facility] [address] [address] [facility] [address] [place] [address] Virtual Appointments! Now offering safe and convenient virtual client appointments to anyone in [place]! Individual Therapy Couples/Relationship Therapy Trauma/EMDR Therapy Art Therapy Play Therapy Head School Custodian Support: Parenting Skills, Parent Child Interaction Therapy, Parent Interaction Therapy Meditation Dietitian/Machine Repairer Services Group Therapy Yoga https://www.Quest Resource Holding Corporation/ Merlene Londono [phone] Private Practice: Telehealth Only Specializes in EMDR for Trauma None documented in [facility] NoteHNO ID: [id number] Author: ZENA FONTENOT APRN.CNP Service: ? Author Type: Nurse Practitioner Type: Progress Notes Filed: 09/20/2024 10:15 Note Text: Crop Puller offered: Patient declines. INITIAL OB ASSESSMENT HPI: Tiffanie is a 33 year old White Female here to establish Obstetrical Care. Patient's last menstrual period was 07/08/2024 (exact date). from OB Dating Form. was unplanned but accepted Complaints: Intermittent heart palpations OB History T2 L2 SAB0 IAB0 Ectopic0 Multiple0 Live Births2 Previous history: Prior : never History of 4th degree laceration: No History of shoulder dystocia: No History of Hypertensive disorders including pre-eclampsia or gestational hypertension: No History of gestational diabetes: Yes Patient's Risk Screening for delivery: Have you had a prior sharma between 20w and 36w6d? No How many pregnancies have you had before? 2 Did you have a previous baby with a GBS Infection? No Please select all that apply for any prior : N/A MEDICAL/PSYCHOSOCIAL HISTORY: History of hemorrhage or bleeding concerns: No Thyroid Disease: No History of chronic hypertension: No History of pre-existing diabetes: No ABO/RH(D) Date Value Ref Range Status 11/23/2020 O POSITIVE Final BMI 28.60 kg/(m2) Last Pap: 09/16/2020 normal History of abnormal pap: Yes Prior treatment for cervical dysplasia: none. Last HPV: 09/16/2020 negative History of STDs: chlamydia and HPV Partner History of STDs: HPV Did you have a partner with Herpes? No Tobacco use: No E-Cigarette/Vaping Use: Yes, weaning off Caffeine use: Yes Drug use: No Alcohol use: No Multivitamin with Folic acid: Yes Would refuse blood transfusion if medically necessary: No Social Needs: How often does this describe you? I don't have enough money to pay my bills: Never Within the past 12 months, have you worried that your food would run out before you had money to buy more? Never In the past 12 months, has lack of reliable transportation kept you from going to medical appointments or work, or from getting things needed for daily living? Never In the past 12 months, have you had any concerns about having a place to live, or about the condition or quality of your housing? Never Would you like more information on any of the following (please check all that apply)? Not interested Social History: Do you have any history of depression, anxiety, PTSD, or other mood problems? Yes Do you have a history of abuse or trauma that may impact your experience? No Are you currently employed? No Depression/Anxiety Screening: denies symptoms of depression. OB Depression and Anxiety Screening- This Encounter (since 09/19/2024) Over the past 2 weeks have you felt down, depressed, or hopeless? Negative Over the past two weeks, have you felt little interest or pleasure in doing things?? Negative Feeling nervous, anxious or on edge 3-Nearly every day Not being able to stop or control worrying 2-More than half the days Anxiety Pre-Screening Total (If >/= 3 additional questions will be reviewed) 5 Worrying too much about different things 1-Several days Trouble relaxing 2-More than half the days Being so restless that it is hard to sit still 2-More than half the days Becoming easily annoyed or irritable 1-Several days Feeling afraid, as if something awful might happen 1-Several days Anxiety (CRIS) Full Screening Total 12 Genetic Screening: Partner present: No Patient verbalized knowledge of partner family health history: Yes Do you or your partner have any personal or family history of defects not previously discussed: No Do you have history of a complicated by anomaly, genetic condition, or demise: No Preeclampsia Risk Screening: Screening for prevention of preeclampsia: High risk factors: None Moderate risk ractors: None OB Risk Screening: Completed, no positive findings documented. Marital Status:Single Partner: Name: Jasson Age: 32 Occupation: manager document Gender: Male PAST MEDICAL HISTORY Diagnosis Date Abnormal glandular Papanicolaou smear of cervix 2000 Bilateral ovarian cysts depression Gestational diabetes mellitus, class A1 03/15/2021 Gestational diabetes mellitus, class A2 03/15/2021 03/14/23-1hr GCT elevated, did not complete 3hr GTT because she was sick after this last . Will presume GDM and testing for duration of . Growth US every 4 weeks. Kristen Farr APRN.CNM History of drug use meth and heroine. Denies use x 1 year 09/2020 History of hepatitis C 11/26/2020 Migraine without aura and without status migrainosus, not intractable PAST SURGICAL HISTORY Procedure Laterality Date CRYO CAUTERY CERVIX 2000 Current Outpatient Medications Medication Sig Dispense Refill PNV no.95/ferrous fum/f (more content not included)...[facility] 09-20-2024 History of Present illness Narrative* Zena Fontenot APRN.ELEVATOR SERVICE MECHANIC - 09/20/2024 9:09 AM EST Images from the original note were not included. Crop Puller offered: Patient declines. INITIAL OB ASSESSMENT HPI: Tiffanie is a 33 year old White Female here to establish Obstetrical Care. Patient's last menstrual period was 07/08/2024 (exact date). from OB Dating Form. was unplanned but accepted Complaints: Intermittent heart palpations OB History T2 L2 SAB0 IAB0 Ectopic0 Multiple0 Live Births2 Previous history: Prior : never History of 4th degree laceration: No History of shoulder dystocia: No History of Hypertensive disorders including pre-eclampsia or gestational hypertension: No History of gestational diabetes: Yes Patient's Risk Screening for delivery: Have you had a prior sharma between 20w and 36w6d? No How many pregnancies have you had before? 2 Did you have a previous baby with a GBS Infection? No Please select all that apply for any prior : N/A MEDICAL/PSYCHOSOCIAL HISTORY: History of hemorrhage or bleeding concerns: No Thyroid Disease: No History of chronic hypertension: No History of pre-existing diabetes: No ABO/RH(D) Date Value Ref Range Status 11/23/2020 O POSITIVE Final BMI 28.60 kg/(m^2) Last Pap: 09/16/2020 normal History of abnormal pap: Yes Prior treatment for cervical dysplasia: none. Last HPV: 09/16/2020 negative History of STDs: chlamydia and HPV Partner History of STDs: HPV Did you have a partner with Herpes? No Tobacco use: No E-Cigarette/Vaping Use: Yes, weaning off Caffeine use: Yes Drug use: No Alcohol use: No Multivitamin with Folic acid: Yes Would refuse blood transfusion if medically necessary: No Social Needs: How often does this describe you? I don't have enough money to pay my bills: Never Within the past 12 months, have you worried that your food would run out before you had money to buy more? Never In the past 12 months, has lack of reliable transportation kept you from going to medical appointments or work, or from getting things needed for daily living? Never In the past 12 months, have you had any concerns about having a place to live, or about the condition or quality of your housing? Never Would you like more information on any of the following (please check all that apply)? Not interested Social History: Do you have any history of depression, anxiety, PTSD, or other mood problems? Yes Do you have a history of abuse or trauma that may impact your experience? No Are you currently employed? No Depression/Anxiety Screening: denies symptoms of depression. OB Depression and Anxiety Screening- This Encounter (since 09/19/2024) Over the past 2 weeks have you felt down, depressed, or hopeless? Negative Over the past two weeks, have you felt little interest or pleasure in doing things? Negative Feeling nervous, anxious or on edge 3-Nearly every day Not being able to stop or control worrying 2-More than half the days Anxiety Pre-Screening Total (If >/= 3 additional questions will be reviewed) 5 Worrying too much about different things 1-Several days Trouble relaxing 2-More than half the days Being so restless that it is hard to sit still 2-More than half the days Becoming easily annoyed or irritable 1-Several days Feeling afraid, as if something awful might happen 1-Several days Anxiety (CRIS) Full Screening Total 12 Genetic Screening: Partner present: No Patient verbalized knowledge of partner family health history: Yes Do you or your partner have any personal or family history of defects not previously discussed: No Do you have history of a complicated by anomaly, genetic condition, or demise: No Preeclampsia Risk Screening: Screening for prevention of preeclampsia: High risk factors: None Moderate risk ractors: None OB Risk Screening: Completed, no positive findings documented. Marital Status:Single Partner: Name: Jasson Age: 32 Occupation: manager document Gender: Male PAST MEDICAL HISTORY Diagnosis Date Abnormal glandular Papanicolaou smear of cervix 2000 Bilateral ovarian cysts depression Gestational diabetes mellitus, class A1 03/15/2021 Gestational diabetes mellitus, class A2 03/15/2021 03/14/23-1hr GCT elevated, did not complete 3hr GTT because she was sick after this last . Will presume GDM and testing for duration of . Growth US every 4 weeks. Kristen Farr APRN.RICKYM History of drug use meth and heroine. Denies use x 1 year 09/2020 History of hepatitis C 11/26/2020 Migraine without aura and without status migrainosus, not intractable PAST SURGICAL HISTORY Procedure Laterality Date CRYO CAUTERY CERVIX 2000 Current Outpatient Medications Medication Sig Dispense Refill PNV no.95/ferrous fum/folic ac ( ORAL) Take by mouth. gabapentin (NEURONTIN) 300 mg capsule Take 1 capsule by mouth three times a day for 60 days. 90 capsule 1 meloxicam (MOBIC) 15 mg tablet Take 1 tablet by mouth once daily. Patient should start on August 14, 2024. 30 tablet 5 acetaminophen 325 mg cap Take by mouth as directed. No current facility-administered medications for this visit. Allergies As of Date: 09/20/2024 (No Known Allergies) Fully Assessed 09/20/2024 Does patient have penicillin allergy: No SBIRT Tiffanie Cortez was given the 4's screening tool. Tiffanie answered as follows: OB Opioid Screening - Last Recorded (since 12/25/2023) Did any of your parents have a problem with alcohol or other drug use? Yes Does your partner have a problem with alcohol or other drug use? Yes In the past, have you had difficulties in your life because of alcohol or other drugs, including prescription medications? Yes In the past month have you drunk any alcohol or used other drugs? No Are you taking medication for pain during the either prescribed or not? No Based on the screen and further questions, she is considered at moderate risk due to: High use in the past including recent treatment. Patient offered brief intervention. In discussing this issue my medical advice was that Tiffanie Cortez abstain. Her readiness to change(0 lowest - 10 highest) was 10. We discussed her motivation to change based upon this response. Patient agreed that she would: abstain. Patient will return in as scheduled to discuss her progress with this plan. In total, 2 minutes of personal time was spent administering and interpreting the screen, plus performing a brief intervention. Zena Fontenot APRN.ELEVATOR SERVICE MECHANIC REVIEW OF SYSTEMS: GENERAL: Negative for: Fever or Chills HEENT: Negative for: Headache, Impaired Vision, Ringing in Ears, Nosebleeds NECK: Negative for: Swelling, Pain, Stiffness RESPIRATORY: Negative for: Cough, Shortness of breath, Wheezing GASTROINTESTINAL: Negative for: Diarrhea, Blood in stool + nausea, constipation, heartburn MUSCULOSKELETAL: Negative for: Muscle or joint pain, stiffness, Joint swelling NEUROLOGIC/PSYCHIATRIC: Negative for: Weakness, Paralysis, Numbness, Tingling, Tremor, Depression, Memory loss + anxiety SKIN: Negative for: Rash, Itching GENITOURINARY: Negative for: vaginal itching, vaginal discharge, hematuria or dysuria SENSITIVE EXAM: The sensitive examination was discussed with the Patient or Patient's Authorized Acquisition Consultant. As applicable, any other physician, advance practice provider, medical student, or other health professional student that will be observing or involved in the sensitive examination for educational or training purposes was discussed with the Patient or Authorized Acquisition Consultant. The Patient or Authorized Acquisition Consultant has agreed to proceed with the sensitive examination. (Sensitive examination includes inspection and/or palpation of the breasts, pelvis, prostate and anorectal regions). PHYSICAL EXAM: BP 120/68 Ht 5' 8.701 (1.75m) Wt 192 lb (87.1kg) LMP 07/08/2024 BMI 28.60 kg/(m^2). GENERAL: pleasant in no apparent distress DERMATOLOGY: Normal, without lesions, non-icteric, and non-hirsute NECK: Supple, full range of motion, no adenopathy, and thyroid normal CHEST: Normal inspiratory effort BREAST: soft, non-tender, symmetric, no dominant mass, normal nipple-areolar complex, no lymphadenopathy, and no nipple discharge ABDOMEN: soft, non-tender, and no masses NEURO: alert and oriented x3,exam grossly non-focal PELVIS: External genitalia normal without lesions. Perineal body intact. No vaginal or cervical lesions. Cervix closed. Uterus 10 week size. No adnexal masses or tenderness. Clinical Pelvimetry: Pelvimetry clinically assessed as adequate Limited OB ultrasound exam: single intrauterine and positive cardiac activity ASSESSMENT: 33 year old at 10w4d wks gestational age PLAN: 1) Patient oriented to practice. Patient given new OB orientation folder. Discussed nutrition, folic acid supplementation, dietary guidelines, exercise, smoking, alcohol, caffeine, and drug use. Discussed gestational weight gain guidelines. Discussed routine OB labs including STD/HIV. Discussed how to access Your guide to a health and the [employer]. Discussed hemoglobin electrophoresis. Patient: Declines Reviewed midwifery and cigar patcher services that are available. Reviewed [employer] program. Patient considering 2) Screening: Hemoglobin A1C: ordered Baby Aspirin: The patient has been counseled about the potential benefits of low dose aspirin in and our recommendation that this be offered to all patients, regardless of whether they meet the high risk criteria specified above. She Accepts Aneuploidy Screening: Discussed aneuploidy screening, nuchal translucency/first trimester early anatomy ultrasound and NIPT. The risks/benefits and limitations of NIPT/aneuploidy screening were reviewed including the potential for false negative and false positive results. The availability of genetic counseling was reviewed. Information on aneuploidy screening was provided. The patient chooses toproceed with First trimester early anatomy ultrasound (12-13w6d) Myriad Carrier Screening: Discussed myriad carrier screening. We discussed the availability of professional-society guided carrier screening and reviewed the conditions screened and limitations of screening. The availability of genetic counseling was reviewed. Information on carrier screening was provided. The patient is considering 3) Patient offered option of Virtual Visits. Patient unsure. May consider in future. Current tobacco use: The patient has been counseled about the risks of tobacco use during pregnancyand cessation has been recommended. Resources for cessation and risks of smoking have been provided. 5 minutes were spent discussing the risks of tobacco use and providing cessation resources. ACTIVE PROBLEM LIST Supervision of High Risk , Antepartum - 10/01/2020 Comment: Care Checklist Vaccines: [] Flu vaccine [] declined [] RSV vaccine 32 0/7 - 36 6/ (May - Oct) [] declined [] COVID vaccine [] declined [] TDaP 27-36 [] declined First trimester: [x] Dating US [] 1st tri labs [x] Pap smear [] Carrier screening - considering [] declined [] NIPT screening - considering [] declined [] First trimester anatomy scan [] declined [] universal ASA ordered (start 12w-16w) [] declined [] M Power Consult [] not indicated [] declined Second trimester: [] Anatomy scan [] Mode of Delivery - [] Feeding - [] Pump ordered [] Diabetes screen [] CBC, RPR [] Behavioral Health Screening Third trimester (28-30 weeks): [] Consent [] Contraception [] Manager Car [] TeamBirth handout Third trimester (36-40 weeks): [] GBS [] Presentation - [] Scheduled [] yes - Hibiclens, pre-op instructions, CBC, T&S ordered [] no [] H&P [] Preferences workshee 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 Is in therapy at [facility] in [facility]. Denies concerns for relapse at this time. Zena Fontenot APRN.ELEVATOR SERVICE MECHANIC Anxiety During - 09/20/2024 Comment: September 20, 2024 Reports increased anxiety. No medication at this time. Has taken Prozac in the past. Follows with Kalyani through psych. Reports anxiety has increased with ADHD. Denies thoughts of self harm. Mental health resources provided. Has upcoming appointment with Kalyani. Zena Fontenot APRN.MONICA History of Depression - 10/01/2020 Comment: September 20, 2024 Denies concerns for depression at this time. Zena Fontenot APRN.ELEVATOR SERVICE MECHANIC Vapes Nicotine Containing Substance - 09/16/2022 Comment: September 20, 2024 Reviewed risks and encouraged cessation. Resources provided. Actively decreasing amount of nicotine. Zena Fontenot APRN.ELEVATOR SERVICE MECHANIC Attention Deficit Hyperactivity Disorder (Adhd) - 09/20/2024 Headache in First Trimester - 09/20/2024 Comment: September 20, 2024 Has added Magnesium. Zena Fontenot APRN.CNP History of Joint Pain - 09/20/2024 Comment: September 20, 2024 Taking Gabapentin and Meloxicam. Discussed recommendation of discontinuing Meloxicam use. Discussed limited data on Gabapentin during and recommend reaching out to prescribed for alternative options Zena Fontenot APRN.CNP History of Gestational Diabetes in Prior , Currently - 06/28/2021 Comment: September 20, 20242020 diet controled 2022 insulin controlled Zena Fontenot APRN.CNP History of Hepatitis C - 11/26/2020 Comment: September 20, 2024 CMP ordered. Zena Fontenot APRN.ELEVATOR SERVICE MECHANIC 11/26/20: 4 yrs ago + viral load, most recent labs indicated negative viral load. Christian Urias MD History of Cryosurgery of Cervix Complicating - 10/01/2020 Comment: 10/01/2020 Patient states she has a history of cryosurgery [place] [address] Sanders who is now retired. TKRN Follow up in 3 weeks or sooner prn. Plan for NT scan between 12w0d and 13w6d gestation. Zena Fontenot APRN.ELEVATOR SERVICE MECHANIC [facility] History of Present illness Narrative* Joshua Gaytan RN - 09/04/2024 10:03 AM EST LMP 07/08/24 Telephone Intake Consanguinity: no Has previous history of chicken pox or vaccine series: ? 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 Oriented to practice, [facility] delivery, office policy & labs ordered. Encouraged to use [employer]hart for general questions, but concerns should be addressed by calling the nurse line. Reviewed vaccinations. Verbal & written information reviewed regarding flu, COVID, RSV & T dap. Reviewed My Guide and Journal booklet to be given at first full care OB appointment. Included is a list of over the counter medications that are safe in for common illnesses. Other items reviewed in booklet- healthy lifestyle, diet (safe food handling, avoidance of unpasteurized soft cheeses and deli meat/hot dogs, and limiting mercury-containing fish consumption), pregnancyexercises. Personal history and surgeries reviewed. Medications/allergies, pharmacy information obtained Extensive OB history completed including Genetic history risk factors assessed. risk factors may include obesity, morbid obesity, OB history, social history, medical history. Aneuploidy testing applicable for patient's age and gestational age to be discussed at first OB visit. Instructed patient on avoidance of cat litter/feces and raw meat. Counseling done on nicotine, alcohol, and illicit drug use if appropriate. Travel and work/environmental hazards reviewed. Lifting restrictions reviewed. Domestic violence screening completed. Donor milk information provided Ultrasound indications reviewed Handout for childbirth classes and hospital information given to patient. Reviewed 20wk Anatomy scan Follow up appointments reviewed, discussed making at least 3 appointments ahead when scheduling Pt to be given office policy letter to sign upon first OB appointment. Included is a no show policy, cancellation policy less than 24 hours notice, late visit over 15 minutes. documented in this [id number] Instructions* Patient Instructions* Kalyani Rios APRN.CNP - 08/30/2024 10:58 PM EST TREATMENT PLAN: Do Urine tox screen as ordered for monitoring purposes. Continue Prozac 60 mg daily to address anxiety symptoms. Continue Gabapentin 300 mg three times per day. Obtain ADHD assessment that was completed at the organization where the patient sees her therapist and have faxed to this office. Follow up will be scheduled after reviewing the results of the ADHD assessment. For those experiencing a suicidal crisis: --call the National Suicide Prevention Lifeline at 988 (574.776.7684) --text the Crisis Text Line (text HOME to 706849) --call 091 and let them know you are having a mental health crisis or go to your nearest Emergency Room for stabilization. --You can also call Mobile Crisis at [phone]. -- You may call the department appointment line at [phone] to schedule your appointment. -- Please call my nurse at [phone] or send me a message in [employer] with any questions or concerns between appointments. documented in this encounterReg[facility]24 NoteHNO ID: [id number] Author: KALYANI RIOS APRN.CNP Service: ? Author Type: Nurse Practitioner Type: Progress Notes Filed: 08/30/2024 22:59 Note Text: FOLLOW UP - PSYCHIATRIC PROGRESS NOTE PATIENT: Tiffanie Cortez DATE: August 27, 2024 Visit Type:In person All information is from Patient report except when noted. This evaluation is NOT intended for forensic, disability or child custody purposes. Kalyani Black APRN.CNP, personally performed the services described in this documentation. All medical record entries made by the SAM student were at my direction and in my presence. I have reviewed the chart and discharge instructions (if applicable) and agree that the record reflects my personal performance and is accurate and complete. Kalyani Rios APRN.MONICA August 30, 2024 CC: Presenting today for follow up regarding psychiatric medication management. HPI: Treatment Plan from Last Visit on 03/04/2024: TREATMENT PLAN: Increase Prozac to 80 mg to address panic symptoms as well as over thinking and irritability that is related to anxiety. Increase Gabapentin back to the 300 mg three times daily as needed to manage overwhelming episodes of anxiety. Start Wellbutrin 100 mg twice daily IR formulation to help with mood, motivation, and ability to focus and complete tasks. Patient is interested in ADHD assessment and has been scheduled for an in person visit to complete the assessment, lab test, vitals, and EKG at that visit. Today Tiffanie shares that Things have been stressful. 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 Mom had a heart attack recently, doing ok though. States she is not managing things well. Missing doctor's appointments. Overbooking self. Forgets to put appointments in her calendar. 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 States they have a 3 day weekend trip coming [place]. States she is doing therapy and had ADHD assessment there. This place also offers medication and she was going to have them manage it but they made some changes and she was not happy with it so not going back there. States they wanted her to take Wellbutrin and decrease the Gabapentin. They also wanted her to try Auvelity but she did not. Tried Wellbutrin before and it gave her headaches. Sees therapist every 2 weeks. Does not have copy of her ADHD assessment but states she was told she has severe ADHD. Advised she should obtain a copy and have it faxed here. Feels that her ADHD causes anxiety and depressive symptoms. Currently prescribed Prozac 60 mg daily and Gabapentin 300 mg TID. Is out of Gabapentin as of today. She did try to wean it down to 2 x day as they suggested but it didn't go well for her. EKG performed in office today. Interval Progress: Same PATIENT DATA: Generalized Anxiety Disorder Scale (CRIS-7) 01/01/2024 03/04/2024 08/27/2024 CRIS - 7 SCORES Score 14 14 15 (0-4) minimal anxiety, (5-9) mild anxiety, (10-14) moderate anxiety, (15-21) severe anxiety Patient Health Questionnaire (PHQ-9) 02/20/2024 03/04/2024 08/27/2024 PHQ-9 Score 5 17 14 (0-4) minimal depression, (5-9) mild depression, (10-14) moderate depression, (15-19) moderately severe depression, (20-27) severe depression PAST MEDICAL HISTORY Diagnosis Date Abnormal glandular Papanicolaou smear of cervix 2000 Bilateral ovarian cysts depression Gestational diabetes mellitus, class A1 03/15/2021 History of drug use meth and heroine. Denies use x 1 year 09/2020 History of hepatitis C 11/26/2020 Migraine without aura and without status migrainosus, not intractable PAST SURGICAL HISTORY Procedure Laterality Date CRYO CAUTERY CERVIX 2000 ALLERGIES No Known Allergies Current Outpatient Medications on File Prior to Visit Medication Sig meloxicam (MOBIC) 15 mg tablet Take 1 tablet by mouth once daily. Patient should start on August 14, 2024. FLUoxetine (PROZAC) 20 mg capsule Take 3 capsules by mouth once daily. gabapentin (NEURONTIN) 300 mg capsule Take 1 capsule by mouth three times a day for 60 days. silver sulfADIAZINE (SILVADENE) 1 % cream Apply to affected area once daily. (Patient not taking: Reported on 03/19/2024) acetaminophen 325 mg cap Take by mouth as directed. [id number] ( VITAMIN) tab Take 1 tablet by mouth. (Patient not taking: Reported on 06/17/2024) No current facility-administered medications on file prior to visit. ROS: See HPI PFSH: See HPI VITAL SIGNS: 08/27/24 1042 BP: 116/62 Pulse: 76 Resp: 18 Weight: 87.1 kg (192 lb) Last 3 Encounter BP Readings: Date: BP: 07/16/2024 98/60 03/19/2024 112/68 01/16/2024 110/78 MENTAL STATUS EXAMINATION: Appearance: Well dressed, well groomed (more content not included)...[facility]10[facility] History of Present illness Narrative* Kalyani Rios APRN.CNP - 08/27/2024 9:48 AM EST Images from the original note were not included. FOLLOW UP - PSYCHIATRIC PROGRESS NOTE PATIENT: Tiffanie Cortez DATE: August 27, 2024 Visit Type:In person All information is from Patient report except when noted. This evaluation is NOT intended for forensic, disability or child custody purposes. IKalyani APRN.MONICA, personally performed the services described in this documentation. All medical record entries made by the SAM student were at my direction and in my presence. I have reviewed the chart and discharge instructions (if applicable) and agree that the record reflects my personal performance and is accurate and complete. Kalyani Rios APRN.CNP August 30, 2024 CC: Presenting today for follow up regarding psychiatric medication management. HPI: Treatment Plan from Last Visit on 03/04/2024: TREATMENT PLAN: Increase Prozac to 80 mg to address panic symptoms as well as over thinking and irritability that is related to anxiety. Increase Gabapentin back to the 300 mg three times daily as needed to manage overwhelming episodes of anxiety. Start Wellbutrin 100 mg twice daily IR formulation to help with mood, motivation, and ability to focus and complete tasks. Patient is interested in ADHD assessment and has been scheduled for an in person visit to complete the assessment, lab test, vitals, and EKG at that visit. Today Tiffanie shares that Things have been stressful. 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 Mom had a heart attack recently, doing ok though. States she is not managing things well. Missing doctor's appointments. Overbooking self. Forgets toput appointments in her calendar. 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 States they have a 3 day weekend trip coming up to [place] [employer] with the kids. States she is doing therapy and had ADHD assessment there. This place also offers medication and she was going to have them manage it but they made some changes and she was not happy with it so not going back there. States they wanted her to take Wellbutrin and decrease the Gabapentin. They also wanted her to try Auvelity but she did not. Tried Wellbutrin before and it gave her headaches. Sees therapist every 2 weeks. Does not have copy of her ADHD assessment but states she was told she has severe ADHD. Advised she should obtain a copy and have it faxed here. Feels that her ADHD causes anxiety and depressive symptoms. Currently prescribed Prozac 60 mg daily and Gabapentin 300 mg TID. Is out of Gabapentin as of today. She did try to wean it down to 2 x day as they suggested but it didn't go well for her. EKG performed in office today. Interval Progress: Same PATIENT DATA: Generalized Anxiety Disorder Scale (CRIS-7) 01/01/2024 03/04/2024 08/27/2024 CRIS - 7 SCORES Score 14 14 15 (0-4) minimal anxiety, (5-9) mild anxiety, (10-14) moderate anxiety, (15-21) severe anxiety Patient Health Questionnaire (PHQ-9) 02/20/2024 03/04/2024 08/27/2024 PHQ-9 Score 5 17 14 (0-4) minimal depression, (5-9) mild depression, (10-14) moderate depression, (15-19) moderately severe depression, (20-27) severe depression PAST MEDICAL HISTORY Diagnosis Date Abnormal glandular Papanicolaou smear of cervix 2000 Bilateral ovarian cysts depression Gestational diabetes mellitus, class A1 03/15/2021 History of drug use meth and heroine. Denies use x 1 year 09/2020 History of hepatitis C 11/26/2020 Migraine without aura and without status migrainosus, not intractable PAST SURGICAL HISTORY Procedure Laterality Date CRYO CAUTERY CERVIX 2000 ALLERGIES No Known Allergies Current Outpatient Medications on File Prior to Visit Medication Sig meloxicam (MOBIC) 15 mg tablet Take 1 tablet by mouth once daily. Patient should start on August 14, 2024. FLUoxetine (PROZAC) 20 mg capsule Take 3 capsules by mouth once daily. gabapentin (NEURONTIN) 300 mg capsule Take 1 capsule by mouth three times a day for 60 days. silver sulfADIAZINE (SILVADENE) 1 % cream Apply to affected area once daily. (Patient not taking: Reported on 03/19/2024) acetaminophen 325 mg cap Take by mouth as directed. Vmrleqsr-Zy-Aer-Fe-FA ( VITAMIN) tab Take 1 tablet by mouth. (Patient not taking: Reported on 06/17/2024) No current facility-administered medications on file prior to visit. ROS: See HPI PFSH: See HPI VITAL SIGNS: 08/27/24 1042 BP: 116/62 Pulse: 76 Resp: 18 Weight: 87.1 kg (192 lb) Last 3 Encounter BP Readings: Date: BP: 07/16/2024 98/60 03/19/2024 112/68 01/16/2024 110/78 MENTAL STATUS EXAMINATION: Appearance: Well dressed, well groomed Behavior: Behaves appropriately during the encounter Social relatedness: Overwhelmed and anxious Speech/Language: The patient demonstrates appropriate tone, prosody, cory, phonetics, and syntax Mood: Anxious Affect: Full and appropriate to topic Orientation: Person, Place, Time and Situation Associations: Intact and linear. Tangential at times. Hallucinations: None Delusions: None Suicidal Ideation: No suicidal ideation, intent or plan. Homicidal Ideation: No homicidal ideation, intent or plan. Insight: Appropriate Judgment: Appropriate DATA REVIEWED: Psychiatric scales, Electronic medical record, and Labs DIAGNOSIS: Moderate episode of recurrent major depressive disorder (hcc) (primary encounter diagnosis) Panic disorder with agoraphobia Encounter for long-term (current) use of medications Heroin use disorder, severe, in sustained remission, dependence (hcc) Vapes nicotine containing substance Attention and concentration deficit GAF: -60-51 Moderate symptoms or moderate difficulty in social, occupational or school functioning. TREATMENT PLAN: Do Urine tox screen as ordered for monitoring purposes. Continue Prozac 60 mg daily to address anxiety symptoms. Continue Gabapentin 300 mg three times per day. Obtain ADHD assessment that was completed at the organization where the patient sees her therapist and have faxed to this office. Follow up will be scheduled after reviewing the results of the ADHD assessment. MEDICATION CHANGES: As above Risks and benefits of the medication, including any black box warnings, were discussed with the patient. Patient is aware to reach out with any questions, concerns, or worsening of symptoms prior to the next appointment. Patient educated on risks of substance use in combination with medications and advised that any substance use along with medications may alter their effectiveness. Follow Up: See Treatment Plan Medical Decision Making: Problems: Moderate: 2+ stable chronic illnesses and 1+ chronic illnesses with change Data: Unique source(s) for external note(s) reviewed: 2 Unique test result(s) reviewed: 2 Unique test(s) ordered: 1 Risk: Moderate: Moderate risk from testing/treatment and Drug management Medical Decision Making Level: 4 - Moderate ADD ON PSYCHOTHERAPY CODE : No SIGNATURE: Kalyani Rios APRN.CNP PATIENT NAME: Tiffanie Cortez DATE: August 27, 2024 TIME: 3:29 PM [facility] Telephone encounter Note * Telephone Encounter - Master Sequeira RN - 07/17/2024 10:52 AM EDT Pt called and is notified of providers results and instructions. Pt voices understanding. Master Sequeira RN [facility]10-30-2024 Miscellaneous Notes* Telephone Encounter - Master Sequeira RN - 07/17/2024 10:52 AM EDT Pt called and is notified of providers results and instructions. Pt voices understanding. Master Sequeira RN * Telephone Encounter - Mamie Baxter PA-C - 07/17/2024 10:45 AM EDT Glucose was low at time of lab draw. Advise patient to eat well balanced meals. Kidney function is normal Cholesterol is normal. She will see on mychart that her LDL is flagged high at 105. Under 130 is okay for someone who is otherwise healthy. Just eat balanced meals. Limit saturated fats. [facility] Telephone encounter Note * Telephone Encounter - Mamie Baxter PA-C - 07/17/2024 10:45 AM EDT Glucose was low at time of lab draw. Advise patient to eat well balanced meals. Kidney function is normal Cholesterol is normal. She will see on mychart that her LDL is flagged high at 105. Under 130 is okay for someone who is otherwise healthy. Just eat balanced meals. Limit saturated fats. [facility]10-29-2024 Telephone encounter Note* Telephone Encounter - Katie Winn LPN - 07/16/2024 12:48 PM EDT Received a fax back from Dr Littlejohn's office advising that they do not accept pt's Medicaid Insurance. Called and notified pt of same. Pt is going to call back to schedule with closest [facility]ology Provider as she was driving and was going to lose cell service. Katie Winn LPN [facility]10-29-2024 Miscellaneous Notes* Telephone Encounter - Katie Winn LPN - 07/16/2024 12:48 PM EDT Received a fax back from Dr Littlejohn's office advising that they do not accept pt's Medicaid Insurance. Called and notified pt of same. Pt is going to call back to schedule with closest [facility] Provider as she was driving and was going to lose cell service. Katie Winn LPN documented in [facility] encounterReg[facility]10-29-2024 NoteHNO ID: [id number] Author: MAMIE BAXTER PA-C Service: ? Author Type: Physician Proposal Consultant Type: Progress Notes Filed: 07/16/2024 12:29 Note Text: Chief Complaint Patient presents with: requesting lab work HPI Tiffanie Cortez is a 33 year old female who presents here today for Above Complaints.. Patient was told by Physical Therapy that she may have RA Patient had inflammatory labs in March that were negative. Ortho started patient on meloxicam and she has felt that this has help significantly She is afraid to go back to daily pain. Past medical history, appointments, medications, allergies reviewed. Previous Medical History PAST MEDICAL HISTORY Diagnosis Date Abnormal glandular Papanicolaou smear of cervix 2000 Bilateral ovarian cysts depression Gestational diabetes mellitus, class A1 03/15/2021 History of drug use meth and heroine. Denies use x 1 year 09/2020 History of hepatitis C 11/26/2020 Migraine without aura and without status migrainosus, not intractable Previous Surgical History PAST SURGICAL HISTORY Procedure Laterality Date CRYO CAUTERY CERVIX 2000 Family History FAMILY HISTORY Problem Relation Age of Onset Hypertension Mother Hypertension Father No Known Problems Brother No Known Problems Maternal Grandmother Heart Attack Maternal Grandfather No Known Problems Paternal Grandmother Heart Attack Paternal Grandfather No Known Problems Daughter Patient Allergies ALLERGIES No Known Allergies Current Medications Current Outpatient Medications on File Prior to Visit Medication Sig gabapentin (NEURONTIN) 300 mg capsule Take 1 capsule by mouth three times a day for 60 days. meloxicam (MOBIC) 15 mg tablet Take 1 tablet by mouth once daily. acetaminophen 325 mg cap Take by mouth as directed. FLUoxetine (PROZAC) 20 mg capsule Take 3 capsules by mouth once daily. silver sulfADIAZINE (SILVADENE) 1 % cream Apply to affected area once daily. (Patient not taking: Reported on 03/19/2024) Adhzhcau-Gv-Jez-Fe-FA ( VITAMIN) tab Take 1 tablet by mouth. (Patient not taking: Reported on 06/17/2024) No current facility-administered medications on file prior to visit. Social History Social History Tobacco Use Smoking status: Former Current packs/day: 0.00 Types: Cigarettes Start date: 09/28/2012 Quit date: 09/28/2020 Years since quittin.8 Smokeless tobacco: Never Tobacco comments: Pt uses nicotine vape Vaping Use Vaping status: current everyday user Substances: Nicotine (2%) Substance Use Topics Alcohol use: Not Currently Drug use: Not Currently Types: Amphetamines, Heroin Review of Symptoms REVIEW OF SYSTEMS GENERAL: No weight loss, malaise or fevers EXAM: BP 98/60 (BP Site: Left Arm, BP Position: Sitting, BP Cuff Size: Large Adult) Pulse 88 Temp 36.4 ?C (97.5 ?F) Resp 18 Wt 87.5 kg (193 lb) LMP 07/08/2024 (Exact Date) SpO2 98% BMI 29.35 kg/m? General Appearance: Well appearing, alert, in no acute distress, well-hydrated, well nourished.. Health Maintenance List Anxiety Screening Never done Hepatitis B Vaccine(1 of 3 - 19+ 3-dose series) Never done Influenza Vaccine(1) due on 03/17/2025 Covid-19 Vaccine( - 2023- season) due on 07/16/2025 Cervical Cancer Screening due on 09/16/2025 DTaP,Tdap,Td Vaccine(3 - Td or Tdap) due on 03/01/2033 Hepatitis C Screening Completed HIV Screening Completed HPV Vaccine Aged Out Data reviewed ASSESSMENT/PLAN: 1. Encounter for lipid screening for cardiovascular disease - ICD9: V77.91, V81.2, ICD10: Z13.220, Z13.6 (primary diagnosis) - LIPID PANEL, NONFASTING 2. Chronic pain of both hips - ICD9: 719.45, 338.29, ICD10: M25.551, M25.552, G89.29 improved - MELOXICAM 15 MG TABLET - CONSULT TO RHEUM/IMMUN DISEASE - BASIC METABOLIC PANEL 3. Hip dysplasia, acquired, right - ICD9: 736.39, ICD10: M21.851 We can get opinion from rheum Consult placed. - MELOXICAM 15 MG TABLET - CONSULT TO RHEUM/IMMUN DISEASE - BASIC METABOLIC PANEL [facility] History of Present illness Narrative* Mamie Baxter PA-C - 07/16/2024 11:48 AM EDT Chief Complaint Patient presents with: requesting lab work HPI Tiffanie Cortez is a 33 year old female who presents here today for Above Complaints.. Patient was told by Physical Therapy that she may have RA Patient had inflammatory labs in March that were negative. Ortho started patient on meloxicam and she has felt that this has help significantly She is afraid to go back to daily pain. Past medical history, appointments, medications, allergies reviewed. Previous Medical History PAST MEDICAL HISTORY Diagnosis Date Abnormal glandular Papanicolaou smear of cervix 2000 Bilateral ovarian cysts depression Gestational diabetes mellitus, class A1 03/15/2021 History of drug use meth and heroine. Denies use x 1 year 09/2020 History of hepatitis C 11/26/2020 Migraine without aura and without status migrainosus, not intractable Previous Surgical History PAST SURGICAL HISTORY Procedure Laterality Date CRYO CAUTERY CERVIX 2000 Family History FAMILY HISTORY Problem Relation Age of Onset Hypertension Mother Hypertension Father No Known Problems Brother No Known Problems Maternal Grandmother Heart Attack Maternal Grandfather No Known Problems Paternal Grandmother Heart Attack Paternal Grandfather No Known Problems Daughter Patient Allergies ALLERGIES No Known Allergies Current Medications Current Outpatient Medications on File Prior to Visit Medication Sig gabapentin (NEURONTIN) 300 mg capsule Take 1 capsule by mouth three times a day for 60 days. meloxicam (MOBIC) 15 mg tablet Take 1 tablet by mouth once daily. acetaminophen 325 mg cap Take by mouth as directed. FLUoxetine (PROZAC) 20 mg capsule Take 3 capsules by mouth once daily. silver sulfADIAZINE (SILVADENE) 1 % cream Apply to affected area once daily. (Patient not taking: Reported on 03/19/2024) Xtyxxhot-Nu-Gzn-Fe-FA ( VITAMIN) tab Take 1 tablet by mouth. (Patient not taking: Reported on 06/17/2024) No current facility-administered medications on file prior to visit. Social History Social History Tobacco Use Smoking status: Former Current packs/day: 0.00 Types: Cigarettes Start date: 09/28/2012 Quit date: 09/28/2020 Years since quittin.8 Smokeless tobacco: Never Tobacco comments: Pt uses nicotine vape Vaping Use Vaping status: current everyday user Substances: Nicotine (2%) Substance Use Topics Alcohol use: Not Currently Drug use: Not Currently Types: Amphetamines, Heroin Review of Symptoms REVIEW OF SYSTEMS GENERAL: No weight loss, malaise or fevers EXAM: BP 98/60 (BP Site: Left Arm, BP Position: Sitting, BP Cuff Size: Large Adult) Pulse 88 Temp 36.4 C (97.5 F) Resp 18 Wt 87.5 kg (193 lb) LMP 07/08/2024 (Exact Date) SpO2 98% BMI 29.35 kg/m General Appearance: Well appearing, alert, in no acute distress, well-hydrated, well nourished.. Health Maintenance List Anxiety Screening Never done Hepatitis B Vaccine(1 of 3 - 19+ 3-dose series) Never done Influenza Vaccine(1) due on 03/17/2025 Covid-19 Vaccine( - 2023- season) due on 07/16/2025 Cervical Cancer Screening due on 09/16/2025 DTaP,Tdap,Td Vaccine(3 - Td or Tdap) due on 03/01/2033 Hepatitis C Screening Completed HIV Screening Completed HPV Vaccine Aged Out Data reviewed ASSESSMENT/PLAN: 1. Encounter for lipid screening for cardiovascular disease - ICD9: V77.91, V81.2, ICD10: Z13.220, Z13.6 (primary diagnosis) - LIPID PANEL, NONFASTING 2. Chronic pain of both hips - ICD9: 719.45, 338.29, ICD10: M25.551, M25.552, G89.29 improved - MELOXICAM 15 MG TABLET - CONSULT TO RHEUM/IMMUN DISEASE - BASIC METABOLIC PANEL 3. Hip dysplasia, acquired, right - ICD9: 736.39, ICD10: M21.851 We can get opinion from rheum Consult placed. - MELOXICAM 15 MG TABLET - CONSULT TO RHEUM/IMMUN DISEASE - BASIC METABOLIC PANEL Mamie Baxter PA-C documented in [facility] encounterReg[facility]24 Telephone encounter Note * Telephone Encounter - Jia Delaney LPN - 07/01/2024 4:07 PM EDT Returned call to patient notifying of medication dose change and being sent to pharmacy. 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 Jia Delaney LPN [facility]10-14-2024 Miscellaneous Notes* Telephone Encounter - Jia Delaney LPN - 07/01/2024 4:07 PM EDT Returned call to patient notifying of medication dose change and being sent to pharmacy. 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 Jia Delaney LPN documented in this encounterReg[facility]10-14-2024 Telephone encounter Note * Telephone Encounter - Kalyani Rios APRN.MONICA - 07/01/2024 3:31 PM EDT Please notify patient that the Prozac prescription has been reduced to 60 mg as requested. Both the prescriptions have been sent to the pharmacy. She should have enough refills till the scheduled appointment in August. [facility]10-14-2024 Miscellaneous Notes* Telephone Encounter - Kalyani Rios APRN.MONICA - 07/01/2024 3:31 PM EDT Please notify patient that the Prozac prescription has been reduced to 60 mg as requested. Both the prescriptions have been sent to the pharmacy. She should have enough refills till the scheduled appointment in August. * Telephone Encounter - Leila Holcomb - 07/01/2024 3:23 PM EDT Patient called back and scheduled 08/27 that works for her and she is also requesting Prozac 80 mg to be reduced as she feels 80 mg is too much. * Telephone Encounter - Jia Delaney LPN - 07/01/2024 3:11 PM EDT Left message for patient to call back and schedule appointment in person at the [place] office withEKG at time of visit. Jia Delaney LPN * Telephone Encounter - Kalyani Rios APRN.CNP - 07/01/2024 2:27 PM EDT Refills can be provided once patient schedules a follow up appointment so adequate amount of medication is sent until the scheduled appointment. * Telephone Encounter - Jerrica Rockwell - 07/01/2024 12:21 PM EDT Last: 02/23/24 TREATMENT PLAN: 1.Increase Prozac to 80 mg to address panic symptoms as well as over thinking and irritability thatis related to anxiety. 2.Increase Gabapentin back to the 300 mg three times daily as needed to manage overwhelming episodes of anxiety. 3.Start Wellbutrin 100 mg twice daily IR formulation to help with mood, motivation, and ability to focus and complete tasks. 4.Patient is interested in ADHD assessment and has been scheduled for an in person visit to complete the assessment, lab test, vitals, and EKG at that visit. Follow up in 2 months 05/07/24-Cx'd- EKG needed 06/11/24-Cx'd-EKG needed Next: NA documented in this encounterReg[facility]10-14-2024 Telephone encounter Note * Telephone Encounter - Leila Holcomb - 07/01/2024 3:23 PM EDT Patient called back and scheduled 08/27 that works for her and she is also requesting Prozac 80 mg to be reduced as she feels 80 mg is too much. [facility]10-14-2024 Telephone encounter Note* Telephone Encounter - Jia Delaney LPN - 07/01/2024 3:11 PM EDT Left message for patient to call back and schedule appointment in person at the [place] office withEKG at time of visit. Jia Delaney LPN [facility]10-14-2024 Telephone encounter Note* Telephone Encounter - Kalyani Rios APRN.CNP - 07/01/2024 2:27 PM EDT Refills can be provided once patient schedules a follow up appointment so adequate amount of medication is sent until the scheduled appointment. [facility]10-14-2024 Telephone encounter Note* Telephone Encounter - Jerrica Rockwell - 07/01/2024 12:21 PM EDT Last: 02/23/24 TREATMENT PLAN: 1.Increase Prozac to 80 mg to address panic symptoms as well as over thinking and irritability thatis related to anxiety. 2.Increase Gabapentin back to the 300 mg three times daily as needed to manage overwhelming episodes of anxiety. 3.Start Wellbutrin 100 mg twice daily IR formulation to help with mood, motivation, and ability to focus and complete tasks. 4.Patient is interested in ADHD assessment and has been scheduled for an in person visit to complete the assessment, lab test, vitals, and EKG at that visit. Follow up in 2 months 05/07/24-Cx'd- EKG needed 06/11/24-Cx'd-EKG needed Next: NA [facility]10-09-2024 NoteHNO ID: [id number] Author: DYANA COLLAZO, PT Service: ? Author Type: Physical Therapist Type: Progress Notes Filed: 06/26/2024 13:54 Note Text: Episode Visit Count: 3 Therapist That Will Accept/Oversee The Plan Of Care: Dyana Collazo Start of Care Date: 05/03/24 Onset Date: 09/18/23 Plan of Care Certification Date: 05/03/24 Next Certification Due Date: 07/03/24 REHABILITATION AND SPORTS THERAPY PHYSICAL THERAPY DISCONTINUANCE OF CARE PLAN OF CARE UPDATE: Assessment: Tiffanie Cortez is discontinued from Physical Therapy services due to maximal benefit.. Patient was seen for 3 visits from Start of Care Date: 05/03/24 to 06/26/2024 and treatment included: Therapeutic exercise, Manual therapy, and Self-mcc management. Goals updated on 06/25/2024. Goals for Episode of Care: created on 05/03/24 through 07/03/24 [place] in home exercise program. Partially met Patient will decrease pain rating by 2 points to meet minimal clinical important difference for numeric pain rating scale. Partially met Patient will increase passive ROM of B hips to minimal limitations to allow pt to to improve performance of ADLs. Met Patient will demonstrate increase in B hip strength to 4+/5 during manual muscle testing in order to improve function for home management tasks, leisure / recreation skills, and work tasks. Partially met Perform standing for work with decreased report of symptoms/pain in 6-8 weeks. 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 Not met SUBJECTIVE: Patient doing better but has not been fully compliant with her HEP. She feels comfortable with doing exercises on her own and would like to be discharged today. Pain: Pain Pain Level: 6 Pain Location: Low Back/Lumbar Spine- Midline, Hip - Left, Hip - Right Description: Tightness, Sore, Aching Frequency: Intermittent PROMIS Scales 05/23/2024 04/30/2024 Higher is Better Phys Func - Score 39 (moderate dysfunction) Phys Func - Percentile 14 Self-Eff Symptom - Score 38 (Low) Self-Eff Symptom - Percentile 12 T-scores: mean of general population = 50. 5 points is clinically meaningfully difference Percentiles provide an indication of how the patient's score ranks in relation to the general population. Higher percentile rankings indicate better function/quality of life. 50th percentile is the average of the general population and indicates half of respondents had a worse score. OBJECTIVE MEASURES WITH LEVEL OF FUNCTION: LE PROM R LE PROM: Minimal limitations in hip PROM L LE PROM : Minimal limitations in hip PROM LE Strength R Hip ABduction: 4/5 R Hip ADduction: 4+/5 R Hip Internal Rotation: 4+/5 R Hip External Rotation: 4+/5 L Hip ABduction: 4/5 L Hip ADduction: 4+/5 L Hip Internal Rotation: 4+/5 L Hip External Rotation: 4+/5 TREATMENT: Therapeutic Exercise: 1: *SL hip abduction series 2: Clamshells 3: Side steps 4: Roberto walks forward and back 5: PPT 6: PPT with alt toe taps 7: Bridging 8: Bridging plus marching 9: Single leg bridging 10: Hip thrusts 11: Single leg hip thrusts 12: Bird dogs Skilled Intervention: Patient was educated in proper exercise technique and purpose for exercises. Skilled judgment was used in selection of appropriate interventions. Provided written instruction for home exercise program to facilitate proper performance and compliance. Correct performance of therapeutic exercises was facilitated with verbal, visual, and tactile cuing. Billing Therapeutic Exercise Treatment Minutes: 43 Skilled Treatment Time Minutes (timed and untimed codes): 43 Total Session Time (minutes): 43 Session Start Time : 1316 Session Stop Time : 1359 Dyana Collazo [facility]10-09-2024 History of Present illness Narrative* Dyana Collazo, PT - 06/26/2024 1:49 PM EDT Images from the original note were not included. Episode Visit Count: 3 Therapist That Will Accept/Oversee The Plan Of Care: Dyana Collazo Start of Care Date: 05/03/24 Onset Date: 09/18/23 Plan of Care Certification Date: 05/03/24 Next Certification Due Date: 07/03/24 REHABILITATION AND SPORTS THERAPY PHYSICAL THERAPY DISCONTINUANCE OF CARE PLAN OF CARE UPDATE: Assessment: Tiffanie Cortez is discontinued from Physical Therapy services due to maximal benefit.. Patient was seen for 3 visits from Start of Care Date: 05/03/24 to 06/26/2024 and treatment included: Therapeutic exercise, Manual therapy, and Self-mcc management. Goals updated on 06/25/2024. Goals for Episode of Care: created on 05/03/24 through 07/03/24 [place] in home exercise program. Partially met Patient will decrease pain rating by 2 points to meet minimal clinical important difference for numeric pain rating scale. Partially met Patient will increase passive ROM of B hips to minimal limitations to allow pt to to improve performance of ADLs. Met Patient will demonstrate increase in B hip strength to 4+/5 during manual muscle testing in order to improve function for home management tasks, leisure / recreation skills, and work tasks. Partially met Perform standing for work with decreased report of symptoms/pain in 6-8 weeks. 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 Not met SUBJECTIVE: Patient doing better but has not been fully compliant with her HEP. She feels comfortable with doing exercises on her own and would like to be discharged today. Pain: Pain Pain Level: 6 Pain Location: Low Back/Lumbar Spine- Midline, Hip - Left, Hip - Right Description: Tightness, Sore, Aching Frequency: Intermittent PROMIS Scales 05/23/2024 04/30/2024 Higher is Better Phys Func - Score 39 (moderate dysfunction) Phys Func - Percentile 14 Self-Eff Symptom - Score 38 (Low) Self-Eff Symptom - Percentile 12 T-scores: mean of general population = 50. 5 points is clinically meaningfully difference Percentiles provide an indication of how the patient's score ranks in relation to the general population. Higher percentile rankings indicate better function/quality of life. 50th percentile is the average of the general population and indicates half of respondents had a worse score. OBJECTIVE MEASURES WITH LEVEL OF FUNCTION: LE PROM R LE PROM: Minimal limitations in hip PROM L LE PROM : Minimal limitations in hip PROM LE Strength R Hip ABduction: 4/5 R Hip ADduction: 4+/5 R Hip Internal Rotation: 4+/5 R Hip External Rotation: 4+/5 L Hip ABduction: 4/5 L Hip ADduction: 4+/5 L Hip Internal Rotation: 4+/5 L Hip External Rotation: 4+/5 TREATMENT: Therapeutic Exercise: 1: *SL hip abduction series 2: Clamshells 3: Side steps 4: Monster walks forward and back 5: PPT 6: PPT with alt toe taps 7: Bridging 8: Bridging plus marching 9: Single leg bridging 10: Hip thrusts 11: Single leg hip thrusts 12: Bird dogs Skilled Intervention: Patient was educated in proper exercise technique and purpose for exercises. Skilled judgment was used in selection of appropriate interventions. Provided written instruction for home exercise program to facilitate proper performance and compliance. Correct performance of therapeutic exercises was facilitated with verbal, visual, and tactile cuing. Billing Therapeutic Exercise Treatment Minutes: 43 Skilled Treatment Time Minutes (timed and untimed codes): 43 Total Session Time (minutes): 43 Session Start Time : 1316 Session Stop Time : 1359 Dyana Collazo PT * Dyana Collazo PT - 06/25/2024 1:39 PM EDT Program_ID:[id number] Access Code: [email or web address] URL: [email or web address] Date: 06-25-2024 Prepared By: Dyana Collazo Program Notes Exercises - Sidelying Hip Abduction - 1 x daily - 7 x weekly - 3 sets - 10 reps - Sidelying Bent Knee Hip Flexion - 1 x daily - 7 x weekly - 3 sets - 10 reps - Sidelying Hip Circles - 1 x daily - 7 x weekly - 3 sets - 10 reps - Clam with Resistance - 1 x daily - 7 x weekly - 3 sets - 10 reps - Side Stepping with Resistance at Ankles - 1 x daily - 7 x weekly - 3 sets - 10 reps - Forward Monster Walks - 1 x daily - 7 x weekly - 3 sets - 10 reps - Backward Monster Walks - 1 x daily - 7 x weekly - 3 sets - 10 reps - Supine Bridge - 1 x daily - 7 x weekly - 3 sets - 10 reps - Marching Bridge - 1 x daily - 7 x weekly - 3 sets - 10 reps - Single Leg Bridge - 1 x daily - 7 x weekly - 3 sets - 10 reps - Supine Hip Extension on Bench - 1 x daily - 7 x weekly - 3 sets - 10 reps - Supine Hip Extension with March on Bench - 1 x daily - 7 x weekly - 3 sets - 10 reps - Supine Posterior Pelvic Tilt - 1 x daily - 7 x weekly - 3 sets - 10 reps - Supine 90/90 Alternating Heel Touches with Posterior Pelvic Tilt - 1 x daily - 7 x weekly - 3 sets - 10 reps - Bird Dog - 1 x daily - 7 x weekly - 3 sets - 10 reps documented in [facility] encounterReg[facility]24 NoteHNO ID: [id number] Author: AUGUST CANALES MD Service: ? Author Type: Physician Type: Progress Notes Filed: 06/17/2024 14:49 Note Text: August Canales MD Department of Orthopaedics Orthopaedics [address] [facility] [address] Dept: [phone] Dept June 17, 2024 CHIEF COMPLAINT: New and Pain of the Left Hip and New and Pain of the Right Hip HPI Patient here today for bilateral hip pain x 5 years. The right hip is the worst. Denies any injury. She had to cut her [employer] job down to 1 day per week d/t the amount of pain. 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 X-ray completed on 04/30/2024. ASSESSMENT: M25.551, M25.552, G89.29 Chronic pain of both hips M21.851 Hip dysplasia, acquired, right PLAN: She does feel he has a bit of early arthritic changes in both hips secondary to dysplasia. I outlined multimodality treatment for this and Ragona try an anti-inflammatory that she can use on an intermittent basis. I believe her hip strengthening and lumbar therapy will be quite important for her moving forward. FOLLOW UP INSTRUCTIONS: Possible intra-articular joint injection if she feels appropriate. OBJECTIVE: Ms. Tiffanie Cortez is a pleasant 33 year old in no apparent distress. Gen:LMP 03/12/2024 nl development, non obese, no deformities ENT: Normocephalic, normal hearing, moist mucosa CV: Pulses:DP/PT= 2+ and symmetric, capillary refill < 2 secs, no peripheral edema/varicosities Skin: no rash, bruising or lesions. Good turgor. Psych: cooperative and appropriate, alert and oriented x 3, good mood and affect. Musculoskeletal: Patient walks without antalgia. Some minor limitations with hip range of motion certainly at terminal end range of flexion and internal rotation with some discomfort. IMAGING: Impression IMPRESSION: DEGENERATIVE JOINT DISEASE OF THE HIP BILATERALLY. ACETABULAR DYSPLASIA ON THE RIGHT. Freight Checker: PSCB Transcribe Date/Time: May 04 2024 8:57P Dictated by : FLOWER NORIEGA MD This examination was interpreted and the report reviewed and electronically signed by: FLOWER NORIEGA MD on May 04 2024 8:59PM EST Results-Findings * * *Final Report* * * DATE OF EXAM: Apr 30 2024 12:53PM [id number] - XR HIP TIFFANIE 5V PEL+ AP/LAT EA HIP / PROCEDURE REASON: multiple diagnoses * * * * Physician Interpretation * * * * HISTORY: 33-YEAR-OLD FEMALE WITH Chronic pain of both hips Chronic pain of both hips Chronic pain of both hips . PT STATES BILAT HIP PAIN WITHOUT INJURY TECHNIQUE: XR HIP TIFFANIE 5V PEL+ AP/LAT EA HIP Laterality: BILATERAL Number of different views (projections): 3 COMPARISON: None RESULT: Bilateral hip: Acetabular dysplasia of the right hip. Hip joint spaces are maintained bilaterally. Collar osteophytes bilaterally. Facet degenerative changes of the visualized lumbar spine Supporting Subjective Information Below: Past Medical History: PAST MEDICAL HISTORY Diagnosis Date Abnormal glandular Papanicolaou smear of cervix 2000 Bilateral ovarian cysts depression Gestational diabetes mellitus, class A1 03/15/2021 History of drug use meth and heroine. Denies use x 1 year 09/2020 History of hepatitis C 11/26/2020 Migraine without aura and without status migrainosus, not intractable Past Surgical History: PAST SURGICAL HISTORY Procedure Laterality Date CRYO CAUTERY CERVIX 2000 Family History: FAMILY HISTORY Problem Relation Age of Onset Hypertension Mother Hypertension Father No Known Problems Brother No Known Problems Maternal Grandmother Heart Attack Maternal Grandfather No Known Problems Paternal Grandmother Heart Attack Paternal Grandfather No Known Problems Daughter Social History: Social History Tobacco Use Smoking status: Former Current packs/day: 0.00 Types: Cigarettes Start date: 09/28/2012 Quit date: 09/28/2020 Years since quittin.7 Smokeless tobacco: Never Tobacco comments: Pt uses nicotine vape Vaping Use Vaping status: current everyday user Substances: Nicotine (2%) Substance Use Topics Alcohol use: Not Currently Drug use: Not Currently Types: Amphetamines, Heroin Medications: Current Outpatient Medications Medication Sig FLUoxetine (PROZAC) 40 mg capsule Take 2 capsules by mouth once daily. gabapentin (NEURONTIN) 300 mg capsule Take 1 capsule by mouth three times a day for 90 days. acetaminophen 325 mg cap Take by mouth as directed. silver sulfADIAZINE (SILVADENE) 1 % cream Apply to affected area once daily. (Patient not taking: Reported on 03/19/2024) Fnaepzjn-Qu-Kwl-Fe-FA ( VITAMIN) tab Take 1 tablet by mouth. (Patient not taking: Reported on 06/17/2024) No current facility-administered medications for this visit. Allergies: Patient has no known allergies. ROS: General (negative for fatigue, malaise, weight loss/gain) HEENT (negative for head (more content not included)...[facility]09-30-2024 History of Present illness Narrative* August Canales MD - 06/17/2024 9:31 AM EDT August Canales MD Department of Orthopaedics Orthopaedics [address] [place] [address] Dept: [phone] Dept June 17, 2024 CHIEF COMPLAINT: New and Pain of the Left Hip and New and Pain of the Right Hip HPI Patient here today for bilateral hip pain x 5 years. The right hip is the worst. Denies any injury. She had to cut her [employer] job down to 1 day per week d/t the amount of pain. 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 X-ray completed on 04/30/2024. ASSESSMENT: M25.551, M25.552, G89.29 Chronic pain of both hips M21.851 Hip dysplasia, acquired, right PLAN: She does feel he has a bit of early arthritic changes in both hips secondary to dysplasia. I outlined multimodality treatment for this and Ragona try an anti- inflammatory that she can use on an intermittent basis. I believe her hip strengthening and lumbar therapy will be quite important for her moving forward. FOLLOW UP INSTRUCTIONS: Possible intra-articular joint injection if she feels appropriate. OBJECTIVE: Ms. Tiffanie Cortez is a pleasant 33 year old in no apparent distress. Gen:LMP 03/12/2024 nl development, non obese, no deformities ENT: Normocephalic, normal hearing, moist mucosa CV: Pulses:DP/PT= 2+ and symmetric, capillary refill < 2 secs, no peripheral edema/varicosities Skin: no rash, bruising or lesions. Good turgor. Psych: cooperative and appropriate, alert and oriented x 3, good mood and affect. Musculoskeletal: Patient walks without antalgia. Some minor limitations with hip range of motion certainly at terminal end range of flexion and internal rotation with some discomfort. IMAGING: Impression IMPRESSION: DEGENERATIVE JOINT DISEASE OF THE HIP BILATERALLY. ACETABULAR DYSPLASIA ON THE RIGHT. Freight Checker: MYRA Transcribe Date/Time: May 04 2024 8:57P Dictated by : FLOWER NORIEGA MD This examination was interpreted and the report reviewed and electronically signed by: FLOWER NORIEGA MD on May 04 2024 8:59PM EST Results-Findings * * *Final Report* * * DATE OF EXAM: Apr 30 2024 12:53PM [id number] - XR HIP TIFFANIE 5V PEL+ AP/LAT EA HIP / PROCEDURE REASON: multiple diagnoses * * * * Physician Interpretation * * * * HISTORY: 33-YEAR-OLD FEMALE WITH Chronic pain of both hips Chronic pain of both hips Chronic pain of both hips . PT STATES BILAT HIP PAIN WITHOUT INJURY TECHNIQUE: XR HIP TIFFANIE 5V PEL+ AP/LAT EA HIP Laterality: BILATERAL Number of different views (projections): 3 COMPARISON: None RESULT: Bilateral hip: Acetabular dysplasia of the right hip. Hip joint spaces are maintained bilaterally. Collar osteophytes bilaterally. Facet degenerative changes of the visualized lumbar spine Supporting Subjective Information Below: Past Medical History: PAST MEDICAL HISTORY Diagnosis Date Abnormal glandular Papanicolaou smear of cervix 2000 Bilateral ovarian cysts depression Gestational diabetes mellitus, class A1 03/15/2021 History of drug use meth and heroine. Denies use x 1 year 09/2020 History of hepatitis C 11/26/2020 Migraine without aura and without status migrainosus, not intractable Past Surgical History: PAST SURGICAL HISTORY Procedure Laterality Date CRYO CAUTERY CERVIX 2000 Family History: FAMILY HISTORY Problem Relation Age of Onset Hypertension Mother Hypertension Father No Known Problems Brother No Known Problems Maternal Grandmother Heart Attack Maternal Grandfather No Known Problems Paternal Grandmother Heart Attack Paternal Grandfather No Known Problems Daughter Social History: Social History Tobacco Use Smoking status: Former Current packs/day: 0.00 Types: Cigarettes Start date: 09/28/2012 Quit date: 09/28/2020 Years since quittin.7 Smokeless tobacco: Never Tobacco comments: Pt uses nicotine vape Vaping Use Vaping status: current everyday user Substances: Nicotine (2%) Substance Use Topics Alcohol use: Not Currently Drug use: Not Currently Types: Amphetamines, Heroin Medications: Current Outpatient Medications Medication Sig FLUoxetine (PROZAC) 40 mg capsule Take 2 capsules by mouth once daily. gabapentin (NEURONTIN) 300 mg capsule Take 1 capsule by mouth three times a day for 90 days. acetaminophen 325 mg cap Take by mouth as directed. silver sulfADIAZINE (SILVADENE) 1 % cream Apply to affected area once daily. (Patient not taking: Reported on 03/19/2024) Mmmepmce-Yd-Gxr-Fe-FA ( VITAMIN) tab Take 1 tablet by mouth. (Patient not taking: Reported on 06/17/2024) No current facility-administered medications for this visit. Allergies: Patient has no known allergies. ROS: General (negative for fatigue, malaise, weight loss/gain) HEENT (negative for headache, earache, recent vision changes, sinus pain, sore throat) Respiratory (no recent shortness of breath, hemoptysis) CV (negative for chest tightness, palpitations) Musculoskeletal (see HPI) Psych (no depression, anxiety) REFERRING PHYSICIAN: Consultation requested by Mamie Baxter for an opinion regarding hip pain. My final recommendations will be communicated back to the requesting physician by way of shared Medical record or letter to requesting physician via US mail. Mamie Baxter [address] [facility] [address] Newton Tovar MD [address] [facility] [address] August Canales MD documented in this encounterRegency [facility]09-12-2024 Telephone encounter Note * Telephone Encounter - Tramaine Merrill RN - 05/30/2024 1:40 PM EDT Patient returned call and discussed prozac, gabapentin, and wellbutrin Rx's. Prozac 40 mg is written to take 2 capsules (equals 80 mg), and also states to take with 20 mg dose.This equals 100 mg daily. Per treatment plan (below) pt was to take 80 mg daily, but the Rx is not written to reflect this, and patient is confused about this. Patient needs refill on the prozac 40 mg, as [facility] gave her the 20 mg prozac. Gabapentin 300 mg is written take 1 capsule 3 times a day NEEDED for 60 days. Patient has been taking it 3 times a day routine (pt did not understand the meaning of NEEDED). [facility] has been givingher 45 pills and she ran out of it, because she is not taking it as needed, she is taking it routine. Patient reports she got bad Headaches from the wellbutrin- so she hasn't been taking it. Patient needs refill on the prozac 40 mg and the instructions changed to reflect how provider wantsher to take it. Per med list the Rx is due for refill on 06-01-24. [facility]. Please advise patient. [facility]09-12-2024 Miscellaneous Notes* Telephone Encounter - Tramaine Merrill RN - 05/30/2024 1:40 PM EDT Patient returned call and discussed prozac, gabapentin, and wellbutrin Rx's. Prozac 40 mg is written to take 2 capsules (equals 80 mg), and also states to take with 20 mg dose.This equals 100 mg daily. Per treatment plan (below) pt was to take 80 mg daily, but the Rx is not written to reflect this, and patient is confused about this. Patient needs refill on the prozac 40 mg, as [facility] gave her the 20 mg prozac. Gabapentin 300 mg is written take 1 capsule 3 times a day NEEDED for 60 days. Patient has been taking it 3 times a day routine (pt did not understand the meaning of NEEDED). [facility] has been givingher 45 pills and she ran out of it, because she is not taking it as needed, she is taking it routine. Patient reports she got bad Headaches from the wellbutrin- so she hasn't been taking it. Patient needs refill on the prozac 40 mg and the instructions changed to reflect how provider wantsher to take it. Per med list the Rx is due for refill on 06-01-24. [facility]. Please advise patient. * Telephone Encounter - Valarie Luke OCCA - 05/30/2024 12:14 PM EDT TC no answer. Left VM to return call. JACKIE Abbott * Telephone Encounter - Jia Delaney LPN - 05/21/2024 3:14 PM EDT Phone call to patient re: Mchart message for refills of medications. Refills sent to [facility] 2 weeks ago, need to verify if wrong pharmacy, please call direct line to [facility] [phone] RX needs to go to a different pharmacy. Jia Delaney LPN * Telephone Encounter - Kalyani Rios APRN.CNP - 05/21/2024 11:27 AM EDT Please notify patient that refills were sent to the pharmacy 2 weeks ago. Have the patient contact the pharmacy regarding the medications. * Telephone Encounter - Jerrica Rockwell - 05/21/2024 10:55 AM EDT Last: 03/04/24 TREATMENT PLAN: 1.Increase Prozac to 80 mg to address panic symptoms as well as over thinking and irritability thatis related to anxiety. 2.Increase Gabapentin back to the 300 mg three times daily as needed to manage overwhelming episodes of anxiety. 3.Start Wellbutrin 100 mg twice daily IR formulation to help with mood, motivation, and ability to focus and complete tasks. 4.Patient is interested in ADHD assessment and has been scheduled for an in person visit to complete the assessment, lab test, vitals, and EKG at that visit. Next: 06/11/24 documented in this encounterRegency [facility]09-12-2024 Telephone encounter Note * Telephone Encounter - Valarie Luke OCCA - 05/30/2024 12:14 PM EDT TC no answer. Left VM to return call. JACKIE Abbott [facility]09-05-20[facility] History of Present illness Narrative* Dyana Collazo, PT - 05/23/2024 3:16 PM EDT Episode Visit Count: 2 Therapist That Will Accept/Oversee The Plan Of Care: Dyana Collazo Start of Care Date: 05/03/24 Onset Date: 09/18/23 Plan of Care Certification Date: 05/03/24 Next Certification Due Date: 07/03/24 REHABILITATION AND SPORTS THERAPY PHYSICAL THERAPY TREATMENT NOTE ASSESSMENT: Tiffanie Cortez tolerated the session with decreased activity tolerance due to back pain. She demonstrated difficulty with LBP affecting all positions and transfers. The patient will continue to benefit from ongoing skilled physical therapy to progress toward set goals. Patient had best response to flexion bias today decreasing symptoms. While it seemed prone lying initially centralized symptoms, it simply intensified symptoms and was ceased going forward. PLAN FOR NEXT VISIT: Assess follow through with HEP SUBJECTIVE: Patient notes no change in hips, but low back is extremely painful lately. 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 Intense tightness and pain in the center of her low back that radiates across both sides Pain: Pain Pain Level: 9 Pain Location: Low Back/Lumbar Spine- Midline Description: Tightness, Sore, Aching, Radiating Frequency: Continuous OBJECTIVE MEASURES WITH LEVEL OF FUNCTION: TREATMENT: Therapeutic Exercise: 1: Attempted and ceased due to increasing pain: Prone lying and prone propped x15 min total 2: SKC 3x30 sec/side 3: *DKC 3x30 sec 4: *PPT 3x10 in hooklying 5: Discussed and reviewed hip HEP Skilled Intervention: Patient was educated in proper exercise technique and purpose for exercises. Skilled judgment was used in selection of appropriate interventions. Provided written instruction for home exercise program to facilitate proper performance and compliance. Correct performance of therapeutic exercises was facilitated with verbal, visual, and tactile cuing. Manual Therapy: 1: Manual lumbar traction with pull to tolerance and intermittent pull/rest x8 min total Skilled Intervention: Manual skills to improve joint mobility, ROM, and decrease pain. Utilized anatomy knowledge of the therapist, and assessment of patient's response to intervention. Billing Therapeutic Exercise Treatment Minutes: 31 Manual TherapyTreatment Minutes: 8 Skilled Treatment Time Minutes (timed and untimed codes): 39 Total Session Time (minutes): 39 Session Start Time : 1320 Session Stop Time : 1359 Dyana Collazo PT * Dyana Collazo PT - 05/23/2024 1:49 PM EDT Program_ID:[id number] Access Code: [email or web address] URL: [email or web address] Date: 05-23-2024 Prepared By: Dyana Collazo Program Notes Exercises - Sidelying Hip Abduction - 1 x daily - 7 x weekly - 3 sets - 10 reps - Clamshell - 1 x daily - 7 x weekly - 3 sets - 10 reps - Supine Bridge - 1 x daily - 7 x weekly - 3 sets - 10 reps - Supine Double Knee to Chest - 1 x daily - 7 x weekly - 3 sets - 3 reps - Supine Posterior Pelvic Tilt - 1 x daily - 7 x weekly - 3 sets - 10 reps documented in this encounterRegency [facility]09-05-2024 NoteHNO ID: [id number] Author: DYANA COLLAZO PT Service: ? Author Type: Physical Therapist Type: Progress Notes Filed: 05/23/2024 15:18 Note Text: Episode Visit Count: 2 Therapist That Will Accept/Oversee The Plan Of Care: Dyana Collazo Start of Care Date: 05/03/24 Onset Date: 09/18/23 Plan of Care Certification Date: 05/03/24 Next Certification Due Date: 07/03/24 REHABILITATION AND SPORTS THERAPY PHYSICAL THERAPY TREATMENT NOTE ASSESSMENT: Tiffanie Cortez tolerated the session with decreased activity tolerance due to back pain. She demonstrated difficulty with LBP affecting all positions and transfers. The patient will continue to benefit from ongoing skilled physical therapy to progress toward set goals. Patient had best response to flexion bias today decreasing symptoms. While it seemed prone lying initially centralized symptoms, it simply intensified symptoms and was ceased going forward. PLAN FOR NEXT VISIT: Assess follow through with HEP SUBJECTIVE: Patient notes no change in hips, but low back is extremely painful lately. 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 Intense tightness and pain in the center of her low back that radiates across both sides Pain: Pain Pain Level: 9 Pain Location: Low Back/Lumbar Spine- Midline Description: Tightness, Sore, Aching, Radiating Frequency: Continuous OBJECTIVE MEASURES WITH LEVEL OF FUNCTION: TREATMENT: Therapeutic Exercise: 1: Attempted and ceased due to increasing pain: Prone lying and prone propped x15 min total 2: SKC 3x30 sec/side 3: *DKC 3x30 sec 4: *PPT 3x10 in hooklying 5: Discussed and reviewed hip HEP Skilled Intervention: Patient was educated in proper exercise technique and purpose for exercises. Skilled judgment was used in selection of appropriate interventions. Provided written instruction for home exercise program to facilitate proper performance and compliance. Correct performance of therapeutic exercises was facilitated with verbal, visual, and tactile cuing. Manual Therapy: 1: Manual lumbar traction with pull to tolerance and intermittent pull/rest x8 min total Skilled Intervention: Manual skills to improve joint mobility, ROM, and decrease pain. Utilized anatomy knowledge of the therapist, and assessment of patient's response to intervention. Billing Therapeutic Exercise Treatment Minutes: 31 Manual TherapyTreatment Minutes: 8 Skilled Treatment Time Minutes (timed and untimed codes): 39 Total Session Time (minutes): 39 Session Start Time : 1320 Session Stop Time : 1359 Dyana Collazo [facility]09-03-2024 Telephone encounter Note* Telephone Encounter - Jia Delaney LPN - 05/21/2024 3:14 PM EDT Phone call to patient re: Mchart message for refills of medications. Refills sent to [facility] 2 weeks ago, need to verify if wrong pharmacy, please call direct line to [email or web address] [facility] [phone] RX needs to go to a different pharmacy. Jia Delaney LPN [facility]09-03-2024 Telephone encounter Note* Telephone Encounter - Kalyani Rios APRN.ELEVATOR SERVICE MECHANIC - 05/21/2024 11:27 AM EDT Please notify patient that refills were sent to the pharmacy 2 weeks ago. Have the patient contact the pharmacy regarding the medications. [facility]09-03-2024 Telephone encounter Note* Telephone Encounter - Jerrica Rockwell - 05/21/2024 10:55 AM EDT Last: 03/04/24 TREATMENT PLAN: 1.Increase Prozac to 80 mg to address panic symptoms as well as over thinking and irritability thatis related to anxiety. 2.Increase Gabapentin back to the 300 mg three times daily as needed to manage overwhelming episodes of anxiety. 3.Start Wellbutrin 100 mg twice daily IR formulation to help with mood, motivation, and ability to focus and complete tasks. 4.Patient is interested in ADHD assessment and has been scheduled for an in person visit to complete the assessment, lab test, vitals, and EKG at that visit. Next: 06/11/24 [facility]08-19-2024 Telephone encounter Note* Telephone Encounter - Katie Winn LPN - 05/06/2024 9:29 AM EDT Patient notified of results and provider's instructions. Patient verbalizes understanding. Pt was assisted in transfer to schedule with ortho. Katie Winn LPN [facility]08-19-2024 Miscellaneous Notes* Telephone Encounter - Katie Winn LPN - 05/06/2024 9:29 AM EDT Patient notified of results and provider's instructions. Patient verbalizes understanding. Pt was assisted in transfer to schedule with ortho. Katie Winn LPN * Telephone Encounter - Mamie Baxter PA-C - 05/06/2024 9:13 AM EDT Xray shows hip dysplasia on right and bilateral arthritic changes. Continue with Physical Therapy. Will also set up with ortho. documented [facility] encounter[facility] Telephone encounter Note * Telephone Encounter - Mamie Baxter PA-C - 05/06/2024 9:13 AM EDT Xray shows hip dysplasia on right and bilateral arthritic changes. Continue with Physical Therapy. Will also set up with ortho. [facility]08-16-2024 NoteHNO ID: [id number] Author: DYANA COLLAZO PT Service: ? Author Type: Physical Therapist Type: Progress Notes Filed: 05/03/2024 13:04 Note Text: Episode Visit Count: 1 Therapist That Will Accept/Oversee The Plan Of Care: Dyana Collazo Start of Care Date: 05/03/24 Onset Date: 09/18/23 Plan of Care Certification Date: 05/03/24 Next Certification Due Date: 07/03/24 Patient Identified by Name and Date of : Yes REHABILITATION AND SPORTS THERAPY PHYSICAL THERAPY EVALUATION PLAN OF CARE: Assessment: Tiffanie Cortez presents with chief complaint of chronic hip pain bilaterally that interferes with rising from a chair, standing, walking, stair negotiation, bending, heavy exertion, squatting, working, sleeping . She presents with impairments in ADL's, joint mobility, overall function, range of motion, strength, symptom management, and tissue tenderness. PROMIS? (Patient-Reported Outcomes Measurement Information System) scores were reviewed and identified as a rehabilitation concern. Prognosis for therapy is Fair due to: clinical presentation, chronic nature of impairments, limited tolerance to activity, occupational demands . She will benefit from skilled therapy services to meet the goals established for this plan of care as noted below. Goals for Episode of Care: created on 05/03/24 through 07/03/24 [place] in home exercise program. Patient will decrease pain rating by 2 points to meet minimal clinical important difference for numeric pain rating scale. Patient will increase passive ROM of B hips to minimal limitations to allow pt to to improve performance of ADLs. Patient will demonstrate increase in B hip strength to 4+/5 during manual muscle testing in order to improve function for home management tasks, leisure / recreation skills, and work tasks. Perform standing for work with decreased report of symptoms/pain in 6-8 weeks. 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 Planned Interventions, Frequency, and Duration: Current Frequency: 1x every other week Duration: 8 weeks Total Number of Visits Planned: 4 Planned Treatment Interventions: Therapeutic exercise (03067), Neuromuscular re-education (67585), Manual therapy (05621), Therapeutic activities (04107), Self-mcc management (08938), Patient/Family/Caregiver Education, Body Mechanics Training PLAN FOR NEXT VISIT: May be needling candidate Patient demonstrates good understanding of plan of care and treatment. The above goals and plan of care were discussed and agreed upon by patient/family. SUBJECTIVE: B hip pain for years with worsening symptoms and function. Has 2 jobs, 1 she stands the whole time and this really flares her up. Pain gets dull and achy on the right and pretty consistently sharp on the L. Notices the right gives her more issues as she limps. Does go to chiro and this tends to help mid back but hurts low back worse. Functional Limitations: rising from a chair, standing, walking, stair negotiation, bending, heavy exertion, squatting, working, sleeping Intake Information: Prescription present Pain: Pain Pain Level: 8 Pain Location: Hip - Left, Hip - Right Description: Sharp, Aching, Sore, Dull PROMIS Scales 04/30/2024 Higher is Better Phys Func - Score 39 (moderate dysfunction) Phys Func - Percentile 14 T-scores: mean of general population = 50. 5 points is clinically meaningfully difference Percentiles provide an indication of how the patient's score ranks in relation to the general population. Higher percentile rankings indicate better function/quality of life. 50th percentile is the average of the general population and indicates half of respondents had a worse score. OBJECTIVE MEASURES WITH LEVEL OF FUNCTION: Hip Observations R Hip Palpation Tenderness: Gluteals L Hip Palpation Tenderness: Gluteals, Piriformis LE PROM R LE PROM: Min to moderate limitation in hip adduction, flexion, IR; minimal limitation in hip ER L LE PROM : Mod limitation in hip flexion, IR, ER; major limitation in adduction Education: Education Learning/educational needs: Home exercise program, Plan of Care, Changes in Plan of Care, Body Mechanics TREATMENT: PT Treatment Interventions: Therapeutic Exercise, Self-Chcf Management Evaluation Therapeutic Exercise: 1: *SL hip abduction 3x10/side 2: *Clamshells 3x10/side 3: *Bridging 3x10 Skilled Intervention: Patient was educated in proper exercise technique and purpose for exercises. Skilled judgment was used in selection of appropriate interventions. Provided written instruction for home exercise program to facilitate proper performance and compliance. Correct performance of therapeutic exercises was facilitated with verbal, visual, and tactile cuing. Self-Chcf Management: 1: Discussed at length plan of care and intervention options. gave patient handout on dry needling and discussed inidicat (more content not included)... [facility]08-16-2024 History of Present illness Narrative* ZayGersonn, PT - 05/03/2024 12:59 PM EDT Images from the original note were not included. Episode Visit Count: 1 Therapist That Will Accept/Oversee The Plan Of Care: Dyana Collazo Start of Care Date: 05/03/24 Onset Date: 09/18/23 Plan of Care Certification Date: 05/03/24 Next Certification Due Date: 07/03/24 Patient Identified by Name and Date of : Yes REHABILITATION AND SPORTS THERAPY PHYSICAL THERAPY EVALUATION PLAN OF CARE: Assessment: Tiffanie Cortez presents with chief complaint of chronic hip pain bilaterally that interferes with rising from a chair, standing, walking, stair negotiation, bending, heavy exertion, squatting, working, sleeping . She presents with impairments in ADL's, joint mobility, overall function, range of motion, strength, symptom management, and tissue tenderness. PROMIS (Patient- Reported Outcomes Measurement Information System) scores were reviewed and identified as a rehabilitation concern. Prognosis for therapy is Fair due to: clinical presentation, chronic nature of impairments, limited tolerance to activity, occupational demands . She will benefit from skilled therapy services tomeet the goals established for this plan of care as noted below. Goals for Episode of Care: created on 05/03/24 through 07/03/24 [place] in home exercise program. Patient will decrease pain rating by 2 points to meet minimal clinical important difference for numeric pain rating scale. Patient will increase passive ROM of B hips to minimal limitations to allow pt to to improve performance of ADLs. Patient will demonstrate increase in B hip strength to 4+/5 during manual muscle testing in order to improve function for home management tasks, leisure / recreation skills, and work tasks. Perform standing for work with decreased report of symptoms/pain in 6-8 weeks. 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 Planned Interventions, Frequency, and Duration: Current Frequency: 1x every other week Duration: 8 weeks Total Number of Visits Planned: 4 Planned Treatment Interventions: Therapeutic exercise (37832), Neuromuscular re- education (43095), Manual therapy (91277), Therapeutic activities (37384), Self- mcc management (33877), Patient/Family/Caregiver Education, Body Mechanics Training PLAN FOR NEXT VISIT: May be needling candidate Patient demonstrates good understanding of plan of care and treatment. The above goals and plan of care were discussed and agreed upon by patient/family. SUBJECTIVE: B hip pain for years with worsening symptoms and function. Has 2 jobs, 1 she stands the whole time and this really flares her up. Pain gets dull and achy on the right and pretty consistently sharp onthe L. Notices the right gives her more issues as she limps. Does go to chiro and this tends to help mid back but hurts low back worse. Functional Limitations: rising from a chair, standing, walking, stair negotiation, bending, heavy exertion, squatting, working, sleeping Intake Information: Prescription present Pain: Pain Pain Level: 8 Pain Location: Hip - Left, Hip - Right Description: Sharp, Aching, Sore, Dull PROMIS Scales 04/30/2024 Higher is Better Phys Func - Score 39 (moderate dysfunction) Phys Func - Percentile 14 T-scores: mean of general population = 50. 5 points is clinically meaningfully difference Percentiles provide an indication of how the patient's score ranks in relation to the general population. Higher percentile rankings indicate better function/quality of life. 50th percentile is the average of the general population and indicates half of respondents had a worse score. OBJECTIVE MEASURES WITH LEVEL OF FUNCTION: Hip Observations R Hip Palpation Tenderness: Gluteals L Hip Palpation Tenderness: Gluteals, Piriformis LE PROM R LE PROM: Min to moderate limitation in hip adduction, flexion, IR; minimal limitation in hip ER L LE PROM : Mod limitation in hip flexion, IR, ER; major limitation in adduction Education: Education Learning/educational needs: Home exercise program, Plan of Care, Changes in Plan of Care, Body Mechanics TREATMENT: PT Treatment Interventions: Therapeutic Exercise, Self-Chcf Management Evaluation Therapeutic Exercise: 1: *SL hip abduction 3x10/side 2: *Clamshells 3x10/side 3: *Bridging 3x10 Skilled Intervention: Patient was educated in proper exercise technique and purpose for exercises. Skilled judgment was used in selection of appropriate interventions. Provided written instruction for home exercise program to facilitate proper performance and compliance. Correct performance of therapeutic exercises was facilitated with verbal, visual, and tactile cuing. Self-Chcf Management: 1: Discussed at length plan of care and intervention options. gave patient handout on dry needling and discussed inidications for use. Showed patient Travell and Martin referred pain patterns for various hip mm's. Also reviewed imaging and discussed rehab implications Skilled Intervention: Skilled judgment in the selection of proper modification for activity of daily living/home management based on clinical presentation, deficits, and needs. Reviewed patient specific diagnosis in relation to activities of daily living/home management. Activity progression based on professional judgement. Billing * Evaluation Low Complexity: 1 Unit Therapeutic Exercise Treatment Minutes: 8 Self-Care/Home Management Treatment Minutes: 15 Skilled Treatment Time Minutes (timed and untimed codes): 47 Total Session Time (minutes): 47 Session Start Time : 45 Session Stop Time : 1032 Dyana Collazo PT * Dyana Collazo PT - 05/03/2024 10:17 AM EDT Program_ID:[id number] Access Code: [email or web address] URL: [email or web address] Date: 05-03-2024 Prepared By: Dyana Collazo Program Notes Exercises - Sidelying Hip Abduction - 1 x daily - 7 x weekly - 3 sets - 10 reps - Clamshell - 1 x daily - 7 x weekly - 3 sets - 10 reps - Supine Bridge - 1 x daily - 7 x weekly - 3 sets - 10 reps documented in this encounterReg[facility] Telephone encounter Note * Telephone Encounter - Galdino Hudson APRN.CNP - 05/02/2024 11:37 AM EDT PDMP website checked and validated. All prescriptions have been APPROPRIATELY filled. No suspiciousactivity was identified. 05/02/2024 by Galdino Hudson APRN.ELEVATOR SERVICE MECHANIC [facility]08-15-2024 Miscellaneous Notes* Telephone Encounter - Galdino Hudson APRN.CNP - 05/02/2024 11:37 AM EDT PDMP website checked and validated. All prescriptions have been APPROPRIATELY filled. No suspiciousactivity was identified. 05/02/2024 by Galdino Hudson APRN.ELEVATOR SERVICE MECHANIC * Telephone Encounter - Jerrica Rockwell - 05/02/2024 9:51 AM EDT Last: 03/04/24 REATMENT PLAN: 1.Increase Prozac to 80 mg to address panic symptoms as well as over thinking and irritability thatis related to anxiety. 2.Increase Gabapentin back to the 300 mg three times daily as needed to manage overwhelming episodes of anxiety. 3.Start Wellbutrin 100 mg twice daily IR formulation to help with mood, motivation, and ability to focus and complete tasks. 4.Patient is interested in ADHD assessment and has been scheduled for an in person visit to complete the assessment, lab test, vitals, and EKG at that visit. Next: 06/11/24 documented in this encounterReg[facility]08-[facility]-2024 Telephone encounter Note * Telephone Encounter - Jerrica Rockwell - 05/02/2024 9:51 AM EDT Last: 03/04/24 REATMENT PLAN: 1.Increase Prozac to 80 mg to address panic symptoms as well as over thinking and irritability thatis related to anxiety. 2.Increase Gabapentin back to the 300 mg three times daily as needed to manage overwhelming episodes of anxiety. 3.Start Wellbutrin 100 mg twice daily IR formulation to help with mood, motivation, and ability to focus and complete tasks. 4.Patient is interested in ADHD assessment and has been scheduled for an in person visit to complete the assessment, lab test, vitals, and EKG at that visit. Next: 06/11/24 [facility]08-13-2024 History of Present illness Narrative* Luba Live RT(R) - 04/30/2024 12:40 PM EDT Radiology Service Progress Note PATIENT NAME: Tiffanie Coretz DATE OF SERVICE: April 30, 2024 TIME: 12:54 PM PATIENT IDENTITY VERIFICATION COMPLETED USING TWO (2) IDENTIFIERS: Name and Date of confirmedby patient verbally. FALL SCREENING: Has the patient had 2 falls in the last year or 1 fall with injury or currently using an Ambulatory Assistive Device (Walker, Cane, Wheelchair, Crutches, etc.)? No PATIENT GENDER DATA: Female. status: : No status: NO. PATIENT RELEVANT IMPLANT DATA REVIEWED: Not Applicable PATIENT PRESENTS WITH AN IMPLANTABLE OR ATTACHED WATERMELON INSPECTOR: No RADIOLOGY DEPARTMENT: General X-ray: Exam(s) Completed: Pelvis X-Ray: Pelvis with Hip Bilateral PERIPHERAL IV DATA: Not applicable SIGNED BY: RT Gentry(R) April 30, 2024 12:54 PM documented in this encounterRegency Hospital [facility]08-13-2024 NoteHNO ID: [id number] Author: LUBA LIVE RT(Heron) Service: ? Author Type: Technologist Type: Progress Notes Filed: 04/30/2024 12:54 Note Text: Radiology Service Progress Note PATIENT NAME: Tiffanie Cortez DATE OF SERVICE: April 30, 2024 TIME: 12:54 PM PATIENT IDENTITY VERIFICATION COMPLETED USING TWO (2) IDENTIFIERS: Name and Date of confirmed by patient verbally. FALL SCREENING: Has the patient had 2 falls in the last year or 1 fall with injury or currently using an Ambulatory Assistive Device (Walker, Cane, Wheelchair, Crutches, etc.)? No PATIENT GENDER DATA: Female. status: : No status: NO. PATIENT RELEVANT IMPLANT DATA REVIEWED: Not Applicable PATIENT PRESENTS WITH AN IMPLANTABLE OR ATTACHED WATERMELON INSPECTOR: No RADIOLOGY DEPARTMENT: General X-ray: Exam(s) Completed: Pelvis X-Ray: Pelvis with Hip Bilateral PERIPHERAL IV DATA: Not applicable SIGNED BY: RT Gentry(R) April 30, 2024 12:54 [facility]07-02-2024 History of Present illness Narrative* Mamie Baxter PA-C - 03/19/2024 12:51 PM EDT Chief Complaint Patient presents with: Hip Pain: bilateral HPI Tiffanie Cortez is a 33 year old female who presents here today for Chronic Medical Conditions.. Patient reports chronic hip pain for years. Stiff at times. No injury that she can recall. States that when she was younger she used to pop her hip out of place. Does have family hx of RA. Past medical history, appointments, medications, allergies reviewed. Previous Medical History PAST MEDICAL HISTORY Diagnosis Date Abnormal glandular Papanicolaou smear of cervix 2000 Bilateral ovarian cysts depression Gestational diabetes mellitus, class A1 03/15/2021 History of drug use meth and heroine. Denies use x 1 year 09/2020 History of hepatitis C 11/26/2020 Migraine without aura and without status migrainosus, not intractable Previous Surgical History PAST SURGICAL HISTORY Procedure Laterality Date CRYO CAUTERY CERVIX 2000 Family History FAMILY HISTORY Problem Relation Age of Onset Hypertension Mother Hypertension Father No Known Problems Brother No Known Problems Maternal Grandmother Heart Attack Maternal Grandfather No Known Problems Paternal Grandmother Heart Attack Paternal Grandfather No Known Problems Daughter Patient Allergies ALLERGIES No Known Allergies Current Medications Current Outpatient Medications on File Prior to Visit Medication Sig gabapentin (NEURONTIN) 300 mg capsule Take 1 capsule by mouth three times a day as needed (anxiety)for up to 60 days. FLUoxetine (PROZAC) 40 mg capsule Take 2 capsules by mouth once daily. Take with 20 mg dose. buPROPion (WELLBUTRIN) 100 mg tablet Take 1 tablet by mouth two times a day. acetaminophen 325 mg cap Take by mouth as directed. Dttsepks-Ck-Mxa-Fe-FA ( VITAMIN) tab Take 1 tablet by mouth. silver sulfADIAZINE (SILVADENE) 1 % cream Apply to affected area once daily. (Patient not taking: Reported on 03/19/2024) No current facility-administered medications on file prior to visit. Social History Social History Tobacco Use Smoking status: Former Years: 8 Types: Cigarettes Quit date: 09/28/2020 Years since quittin.4 Smokeless tobacco: Never Tobacco comments: Pt uses nicotine vape Vaping Use Vaping Use: current everyday user Substances: Nicotine (2%) Substance Use Topics Alcohol use: Not Currently Drug use: Not Currently Types: Amphetamines, Heroin Review of Symptoms REVIEW OF SYSTEMS See hpi EXAM: BP 112/68 (BP Site: Left Arm, BP Position: Sitting, BP Cuff Size: Large Adult) Pulse 80 Temp 36.2 C (97.2 F) Resp 16 Wt 93.9 kg (207 lb) LMP 03/12/2024 (Exact Date) BMI 31.47 kg/m General Appearance: Well appearing, alert, in no acute distress, well-hydrated, well nourished.. Musculoskeletal: generalized pain with ROM of hip. Worse with extension and flexion. NVI. . Health Maintenance List Hepatitis B Vaccine(1 of 3 - 19+ 3-dose series) Never done Covid-19 Vaccine(2022- season) Never done Influenza Vaccine(1) due on 05/19/2024 Cervical Cancer Screening due on 09/16/2025 DTaP,Tdap,Td Vaccine(3 - Td or Tdap) due on 03/01/2033 Hepatitis C Screening Completed HIV Screening Completed HPV Vaccine Aged Out Data reviewed ASSESSMENT/PLAN: 1. Chronic pain of both hips - ICD9: 719.45, 338.29, ICD10: M25.551, M25.552, G89.29 Check xray and labs. Start Physical Therapy. - XR HIP BILATERAL 5V PEL/AP/LAT EACH HIP - CASSI BY IFA WITH REFLEX - C-REACTIVE PROTEIN - SEDIMENTATION RATE, WESTERGREN - RHEUMATOID FACTOR - CONSULT TO PHYSICAL THERAPY Mamie Baxter PA-C documented in this encounterRegency [facility]06-17-[facility]24 History of Present illness Narrative* Kalyani Rios, SAM.ELEVATOR SERVICE MECHANIC - 03/04/2024 1:34 PM EDT Images from the original note were not included. FOLLOW UP - PSYCHIATRIC PROGRESS NOTE PATIENT: Tiffanie Cortez DATE: March 04, 2024 Visit Type: Virtual Visit utilizing two-way audio and video for at least a portion of the visit. Consent for virtual visit obtained verbally. Confidentiality limitations with virtual visits reviewed with the patient and guardian, if present, who have accepted the risk verbally prior to proceeding wi th encounter. I have communicated my name and active licensure. The patient's identity and physicallocation were verified at the time of this visit. Either the patient or their legal factory representative has been informed of the risks and benefits of -- and alternatives to -- treatment through a remote evaluation and consents to proceed with the evaluation remotely. All information is from Patient report except when noted. This evaluation is NOT intended for forensic, disability or child custody purposes. Some elements were copied from the previous note which have been updated where appropriate and reflect current decision making from today March 04, 2024. CC: Presenting today for follow up regarding psychiatric medication management. HPI: Treatment Plan from Last Visit on 01/01/2024: Increase Prozac to address anxiety symptoms. Continue Gabapentin at the same dose. Today Tiffanie shares that I just came out of a manic episode. Shares that this is the first manic episode that she experienced. I had panic attacks back to back. My mind was racing. I was just stressed out. Coming home, makingdinner with no help was very stressful. I had 3 kids over the weekend. She also did not eat much for 1 week. She did not experience much hunger. [place] that there was so much to do with cleaning. I just feel like I don't have enough time to do anything. I start somethingand don't have enough time to do anything. Not getting enough sleep during that time as she shares that she was busy trying to take care of things. It was not because she could not fall asleep. From patient's explanation, this response appears to be more driven by anxiety versus bipolar disorder. She normally only works one day a week. She had to work 2 days this week and had a lot more responsibilities of other children. Also reports Euphoria due to good productivity. Experiences symptoms about 2 days. Feels that thesesymptoms are triggered due to a stressors. Has noticed improvement in these symptoms since Prozac was started. Denies any worsening of symptoms with Prozac. She feels that since starting Prozac, these symptoms have improved and she is feeling less depressed. She is concerned about starting tasks and forgetting things. This makes her feel that nothing gets done. Willing to try a higher dose of Prozac. She shares that Gabapentin is helping but she is noticing that it is not helping with her symptoms at the current dose. Denies any side effects from Gabapentin. She shares that in the past, she has tried taking Wellbutrin a long time ago and experienced dry mouth. But does not remember the dose she took. Interval Progress: Slightly worse PATIENT DATA: Generalized Anxiety Disorder Scale (CRIS-7) 11/27/2023 01/01/2024 03/04/2024 CRIS - 7 SCORES Score 21 14 14 (0-4) minimal anxiety, (5-9) mild anxiety, (10-14) moderate anxiety, (15-21) severe anxiety Patient Health Questionnaire (PHQ-9) 01/01/2024 02/20/2024 03/04/2024 PHQ-9 Score 9 5 17 (0-4) minimal depression, (5-9) mild depression, (10-14) moderate depression, (15-19) moderately severe depression, (20-27) severe depression PAST MEDICAL HISTORY Diagnosis Date Abnormal glandular Papanicolaou smear of cervix 2000 Bilateral ovarian cysts depression Gestational diabetes mellitus, class A1 03/15/2021 History of drug use meth and heroine. Denies use x 1 year 09/2020 History of hepatitis C 11/26/2020 Migraine without aura and without status migrainosus, not intractable PAST SURGICAL HISTORY Procedure Laterality Date CRYO CAUTERY CERVIX 2000 ALLERGIES No Known Allergies Current Outpatient Medications on File Prior to Visit Medication Sig FLUoxetine (PROZAC) 40 mg capsule Take 1 capsule by mouth once daily. Take with 20 mg dose. gabapentin (NEURONTIN) 100 mg capsule Take 2 capsules by mouth three times a day as needed (anxiety) for up to 30 days. FLUoxetine (PROZAC) 20 mg capsule Take 1 capsule by mouth once daily. Take with 40 mg dose. silver sulfADIAZINE (SILVADENE) 1 % cream Apply to affected area once daily. acetaminophen 325 mg cap Take by mouth as directed. Qaotogpd-Vg-Jjw-Fe-FA ( VITAMIN) tab Take 1 tablet by mouth. No current facility-administered medications on file prior to visit. ROS: See HPI PFSH: See HPI VITAL SIGNS: There were no vitals filed for this visit. Last 3 Encounter BP Readings: Date: BP: 01/16/2024 110/78 06/28/2023 120/72 05/25/2023 110/74 MENTAL STATUS EXAMINATION: Mental Status Exam General/Sensorium: Alert Orientation: AAOx3 Appearance: Casually dressed and disheveled Eye contact: Appropriate Demeanor: Appropriately interactive Motor activity: Calm Speech: Articulate with appropriate rhythm and volume Mood: Anxious- slightly distracted due to her children being around her. Affect: Congruent with mood Thought process: Within normal limits and linear, logical, and goal-directed Associations: Normal Thought content: Appropriate, focused on history, symptoms, and management and discussing stressors Suicidal ideation: none Homicidal ideation: none Abnormal/psychotic thoughts: Absent Perceptions: She does not appear internally stimulated. Intelligence: Average Attention: Intact Memory: Short-term: Intact Long-term: Intact Language: Intact Fund of knowledge: Fair Insight: Fair Judgment: Fair Gait: Not observed Station: Sitting DATA REVIEWED: Psychiatric scales, Electronic medical record, Labs DIAGNOSIS: Moderate episode of recurrent major depressive disorder (hcc) Panic disorder with agoraphobia Heroin use disorder, severe, in sustained remission, dependence (hcc) Encounter for long-term (current) use of medications (primary encounter diagnosis) GAF: -60-51 Moderate symptoms or moderate difficulty in social, occupational or school functioning. TREATMENT PLAN: Increase Prozac to 80 mg to address panic symptoms as well as over thinking and irritability that is related to anxiety. Increase Gabapentin back to the 300 mg three times daily as needed to manage overwhelming episodes of anxiety. Start Wellbutrin 100 mg twice daily IR formulation to help with mood, motivation, and ability to focus and complete tasks. Patient is interested in ADHD assessment and has been scheduled for an in person visit to complete the assessment, lab test, vitals, and EKG at that visit. MEDICATION CHANGES: See above Risks and benefits of the medication, including any black box warnings, were discussed with the patient. Patient is aware to reach out with any questions, concerns, or worsening of symptoms prior to the next appointment. Patient educated on risks of substance use in combination with medications and advised that any substance use along with medications may alter their effectiveness. Patient denies any history of seizures. Follow Up: 2 months I spent a total of 48 minutes on the date of the service which included preparing to see the patient, [id number] patient care, completing clinical documentation, and counseling and educating the patient/family/caregiver, ordering medications/labs, communicating with other health care providers, and coordinator care. ADD ON PSYCHOTHERAPY CODE : No SIGNATURE: Kalyani Rios APRN.CNP PATIENT NAME: Tiffanie Cortez DATE: March 04, 2024 TIME: 1:35 PM documented in [facility] encounter[facility] Telephone encounter Note * Telephone Encounter - Kalyani Rios APRN.CNP - 02/26/2024 2:19 PM EDT Medications have been sent to the [facility] in [place] as requested. [facility]06-10-[facility]24 Miscellaneous Notes* Telephone Encounter - Kalyani Rios APRN.CNP - 02/26/2024 2:19 PM EDT Medications have been sent to the [facility] in [place] as requested. * Telephone Encounter - Mary Elias LPN - 02/26/2024 12:08 PM EDT Prescription Refill Information The patient has been identified by name and date of : Yes Caregiver verified no other encounters exist for this prescription request: Yes Caregiver confirmed with patient/requestor that no other refills are due, in the near future, with this provider at this time: Yes Does the patient have a future office visit with this provider/department: Yes Requested Prescriptions Pending Prescriptions Disp Refills FLUoxetine (PROZAC) 40 mg capsule 30 capsule 1 Sig: Take 1 capsule by mouth once daily. Take with 20 mg dose. gabapentin (NEURONTIN) 100 mg capsule 180 capsule 0 Sig: Take 2 capsules by mouth three times a day as needed (anxiety) for up to 30 days. FLUoxetine (PROZAC) 20 mg capsule 30 capsule 1 Sig: Take 1 capsule by mouth once daily. Take with 40 mg dose. Mary Elias LPN February 26, 2024 12:08 PM documented in this encounterReg[facility]24 Telephone encounter Note * Telephone Encounter - Mary Elias LPN - 02/26/2024 12:08 PM EDT Prescription Refill Information The patient has been identified by name and date of : Yes Caregiver verified no other encounters exist for this prescription request: Yes Caregiver confirmed with patient/requestor that no other refills are due, in the near future, with this provider at this time: Yes Does the patient have a future office visit with this provider/department: Yes Requested Prescriptions Pending Prescriptions Disp Refills FLUoxetine (PROZAC) 40 mg capsule 30 capsule 1 Sig: Take 1 capsule by mouth once daily. Take with 20 mg dose. gabapentin (NEURONTIN) 100 mg capsule 180 capsule 0 Sig: Take 2 capsules by mouth three times a day as needed (anxiety) for up to 30 days. FLUoxetine (PROZAC) 20 mg capsule 30 capsule 1 Sig: Take 1 capsule by mouth once daily. Take with 40 mg dose. Mary Elias LPN February 26, 2024 12:08 PM [facility]-05[facility] History of Present illness Narrative* Mamie Baxter PA-C - 02/21/2024 7:13 AM EDT DISTANCE HEALTH VISIT MyChart Zoom Video Visit was used for evaluation of this patient. Patient consents to visit. Patient's location: [place] I have communicated my name and active licensure. The patient's identity and physical location wereverified at the time of this visit. Either the patient or their legal factory representative has been informed of the risks and benefits of -- and alternatives to -- treatment through a remote evaluation andconsents to proceed with the evaluation remotely. Chief Complaint No chief complaint on file. [facility] Tiffanie Cortez is a 33 year old female who presents here today via virtual for burn on arm. Patient was cooking and accidentally touched burner with her arm. This occurred on 02/17 Patient has been keeping cleaned with soap water. Mild tenderness and sensitive to temp. Compared to yesterday has noted improvement. Past medical history, appointments, medications, allergies reviewed. Previous Medical History PAST MEDICAL HISTORY Diagnosis Date Abnormal glandular Papanicolaou smear of cervix 2000 Bilateral ovarian cysts depression Gestational diabetes mellitus, class A1 03/15/2021 History of drug use meth and heroine. Denies use x 1 year 09/2020 History of hepatitis C 11/26/2020 Migraine without aura and without status migrainosus, not intractable Previous Surgical History PAST SURGICAL HISTORY Procedure Laterality Date CRYO CAUTERY CERVIX 2000 Family History FAMILY HISTORY Problem Relation Age of Onset Hypertension Mother Hypertension Father No Known Problems Brother No Known Problems Maternal Grandmother Heart Attack Maternal Grandfather No Known Problems Paternal Grandmother Heart Attack Paternal Grandfather No Known Problems Daughter Patient Allergies ALLERGIES No Known Allergies Current Medications Current Outpatient Medications on File Prior to Visit Medication Sig FLUoxetine (PROZAC) 40 mg capsule Take 1 capsule by mouth once daily. Take with 20 mg dose. gabapentin (NEURONTIN) 100 mg capsule Take 2 capsules by mouth three times a day as needed (anxiety) for up to 30 days. FLUoxetine (PROZAC) 20 mg capsule Take 1 capsule by mouth once daily. Take with 40 mg dose. acetaminophen 325 mg cap Take by mouth as directed. Nvptaymh-Df-Lxt-Fe-FA ( VITAMIN) tab Take 1 tablet by mouth. No current facility-administered medications on file prior to visit. Social History Social History Tobacco Use Smoking status: Former Years: 8 Types: Cigarettes Quit date: 09/28/2020 Years since quittin.4 Smokeless tobacco: Never Tobacco comments: Pt uses nicotine vape Vaping Use Vaping Use: current everyday user Substances: Nicotine (2%) Substance Use Topics Alcohol use: Not Currently Drug use: Not Currently Types: Amphetamines, Heroin Review of Symptoms REVIEW OF SYSTEMS See hpi EXAM: LMP 08/17/2022 (Exact Date) Any vital signs collected today were done so using patient's home equipment, otherwise no vital signs due to distant health visit. PHYSICAL EXAMINATION: VIDEO EXAM: (if done, performed via video enabled technology) GENERAL: alert and appropriate, in no distress, well-hydrated, well nourished, and happy, smiling, interactive SKIN: skin on R forearm with evidence of a superficial partial thickness burn. Health Maintenance List Hepatitis B Vaccine(1 of 3 - 19+ 3-dose series) Never done Covid-19 Vaccine(2022- season) Never done Influenza Vaccine(Season Ended) due on 05/19/2024 Pap Testing due on 09/16/2025 HPV Testing due on 09/16/2025 DTaP,Tdap,Td Vaccine(3 - Td or Tdap) due on 03/01/2033 Hepatitis C Screening Completed HIV Screening Completed HPV Vaccine Aged Out Data reviewed ASSESSMENT/PLAN: 1. Superficial partial thickness burn of forearm - ICD9: 943.21, ICD10: T22.219A Discussed keeping area clean and covered to decrease risk of infection. Prescription for silver sulfadiazine sent. Discussed watching for s/s of infection. Discussed possible red flags and when to seek medical attention. Mamie Baxter PA-C documented in this encounterReg[facility]24 Telephone encounter Note * Telephone Encounter - Mary Elias LPN - 02/05/2024 8:11 AM EDT Prescription Refill Information The patient has been identified by name and date of : Yes Caregiver verified no other encounters exist for this prescription request: Yes Caregiver confirmed with patient/requestor that no other refills are due, in the near future, with this provider at this time: Yes Does the patient have a future office visit with this provider/department: Yes Requested Prescriptions Pending Prescriptions Disp Refills FLUoxetine (PROZAC) 40 mg capsule 30 capsule 1 Sig: Take 1 capsule by mouth once daily. Take with 20 mg dose. gabapentin (NEURONTIN) 100 mg capsule 180 capsule 0 Sig: Take 2 capsules by mouth three times a day as needed (anxiety) for up to 30 days. FLUoxetine (PROZAC) 20 mg capsule 30 capsule 1 Sig: Take 1 capsule by mouth once daily. Take with 40 mg dose. Mary Elias LPN February 05, 2024 8:11 AM [facility] Miscellaneous Notes* Telephone Encounter - Mary Elias LPN - 02/05/2024 8:11 AM EDT Prescription Refill Information The patient has been identified by name and date of : Yes Caregiver verified no other encounters exist for this prescription request: Yes Caregiver confirmed with patient/requestor that no other refills are due, in the near future, with this provider at this time: Yes Does the patient have a future office visit with this provider/department: Yes Requested Prescriptions Pending Prescriptions Disp Refills FLUoxetine (PROZAC) 40 mg capsule 30 capsule 1 Sig: Take 1 capsule by mouth once daily. Take with 20 mg dose. gabapentin (NEURONTIN) 100 mg capsule 180 capsule 0 Sig: Take 2 capsules by mouth three times a day as needed (anxiety) for up to 30 days. FLUoxetine (PROZAC) 20 mg capsule 30 capsule 1 Sig: Take 1 capsule by mouth once daily. Take with 40 mg dose. Mary Elias LPN February 05, 2024 8:11 AM documented in this encounterReg[facility]04-30-2024 History of Present illness Narrative* Mamie Baxter PA-C - 01/16/2024 1:35 PM EDT Chief Complaint Patient presents with: Eczema: Dx'd many years ago, getting worse recently HPI Tiffanie Cortez is a 33 year old female who presents here today for Above Complaints.. Patient with hx of eczema and keratosis pilaris. She is noticing worsening symptoms. Using OTC moisturizers. Past medical history, appointments, medications, allergies reviewed. Previous Medical History PAST MEDICAL HISTORY Diagnosis Date Abnormal glandular Papanicolaou smear of cervix 2000 Bilateral ovarian cysts depression Gestational diabetes mellitus, class A1 03/15/2021 History of drug use meth and heroine. Denies use x 1 year 09/2020 History of hepatitis C 11/26/2020 Migraine without aura and without status migrainosus, not intractable Previous Surgical History PAST SURGICAL HISTORY Procedure Laterality Date CRYO CAUTERY CERVIX 2000 Family History FAMILY HISTORY Problem Relation Age of Onset Hypertension Mother Hypertension Father No Known Problems Brother No Known Problems Maternal Grandmother Heart Attack Maternal Grandfather No Known Problems Paternal Grandmother Heart Attack Paternal Grandfather No Known Problems Daughter Patient Allergies ALLERGIES No Known Allergies Current Medications Current Outpatient Medications on File Prior to Visit Medication Sig FLUoxetine (PROZAC) 40 mg capsule Take 1 capsule by mouth once daily. Take with 20 mg dose. gabapentin (NEURONTIN) 100 mg capsule Take 2 capsules by mouth three times a day as needed (anxiety) for up to 30 days. FLUoxetine (PROZAC) 20 mg capsule Take 1 capsule by mouth once daily. Take with 40 mg dose. acetaminophen 325 mg cap Take by mouth as directed. Houulljt-Ap-Mbi-Fe-FA ( VITAMIN) tab Take 1 tablet by mouth. No current facility-administered medications on file prior to visit. Social History Social History Tobacco Use Smoking status: Former Years: 8 Types: Cigarettes Quit date: 09/28/2020 Years since quittin.3 Smokeless tobacco: Never Tobacco comments: Pt uses nicotine vape Vaping Use Vaping Use: current everyday user Substances: Nicotine (2%) Substance Use Topics Alcohol use: Not Currently Drug use: Not Currently Types: Amphetamines, Heroin Review of Symptoms REVIEW OF SYSTEMS See hpi EXAM: BP 110/78 (BP Site: Left Arm, BP Position: Sitting, BP Cuff Size: Regular Adult) Pulse 81 Temp 36.4 C (97.6 F) (Left Tympanic) Resp 16 Wt 102.1 kg (225 lb) LMP 08/17/2022 (Exact Date) SpO2 98% BMI 34.21 kg/m General Appearance: Well appearing, alert, in no acute distress, well-hydrated, well nourished.. Skin: pilaris keratosis noted on b/l arms Health Maintenance List Hepatitis B Vaccine(1 of 3 - 19+ 3-dose series) Never done Covid-19 Vaccine( season) Never done Influenza Vaccine(Season Ended) due on 05/19/2024 Pap Testing due on 09/16/2025 HPV Testing due on 09/16/2025 DTaP,Tdap,Td Vaccine(3 - Td or Tdap) due on 03/01/2033 Hepatitis C Screening Completed HIV Screening Completed HPV Vaccine Aged Out Data reviewed ASSESSMENT/PLAN: 1. Keratosis pilaris - ICD9: 757.39, ICD10: L85.8 (primary diagnosis) Continue with moisturizers. Will see if derm has additional treatment options. - CONSULT TO DERMATOLOGY 2. Eczema, unspecified type - ICD9: 692.9, ICD10: L30.9 - As above. - discussed skin care of rash - follow up if symptoms persist or worsen. - CONSULT TO DERMATOLOGY Mamie Baxter PA-C documented in this encounterRegency [facility]04-22-2024 Telephone encounter Note * Telephone Encounter - Earl Cummings RN - 01/08/2024 9:44 AM EDT Order for 2 hour glucose . Patient delivered 05/05/23 and never had it done. Earl Cummings RN [facility]04-22-2024 Miscellaneous Notes* Telephone Encounter - Earl Cummings RN - 01/08/2024 9:44 AM EDT Order for 2 hour glucose . Patient delivered 05/05/23 and never had it done. Earl Cummings RN documented in this encounterRegency Hospital [facility]04-15-2024 Instructions* Patient Instructions* Kalyani Rios, PROCUREMENT TECHNICIAN.ELEVATOR SERVICE MECHANIC - 01/01/2024 1:52 PM EDT Antonette Sandhu, It was good to talk with you today. Below is a summary of the plan that we discussed during your appointment for reference. Of course, if you have any questions or concerns do not hesitate to reach out to me via a message or call. Manny, Kalyani Rios APRN.CNP PLAN AND FOLLOW UP: 1) Increase Prozac to 60 mg by taking a 40 mg and 20 mg capsule once daily. 2) Continue Gabapentin at the same dose. For those experiencing a suicidal crisis: --call the National Suicide Prevention Lifeline at 988 (638.305.3890) --text the Crisis Text Line (text HOME to 933395) --call 911 and let them know you are having a mental health crisis or go to your nearest Emergency Room for stabilization. --You can also call Mobile Crisis at [phone]. Next appointment: --Schedule in 2 months or sooner if needed -- You may call the department appointment line at [phone] to schedule your appointment. -- Please call my nurse Mary at [phone] or send me a message in [employer] with any questions or concerns between appointments. documented in this encounterRegency Hospital [facility]04-15-2024 History of Present illness Narrative* Kalyani Rios APRN.CNP - 01/01/2024 1:38 PM EDT Images from the original note were not included. FOLLOW UP - PSYCHIATRIC PROGRESS NOTE PATIENT: Tiffanie Cortez DATE: January 01, 2024 Visit Type: Virtual Visit utilizing two-way audio and video for at least a portion of the visit. Consent for virtual visit obtained verbally. Confidentiality limitations with virtual visits reviewed with the patient and guardian, if present, who have accepted the risk verbally prior to proceeding encounter. I have communicated my name and active licensure. The patient's identity and physicallocation were verified at the time of this visit. Either the patient or their legal factory representative has been informed of the risks and benefits of -- and alternatives to -- treatment through a remote evaluation and consents to proceed with the evaluation remotely. All information is from Patient report except when noted. This evaluation is NOT intended for forensic, disability or child custody purposes. Some elements were copied from the previous note which have been updated where appropriate and reflect current decision making from today January 01, 2024. CC: Presenting today for follow after increase in Prozac and Gabapentin dose HPI: Treatment Plan from Last Visit on 11/27/2023: 1. Increase Prozac to address anxiety symptoms. 2. Increase Gabapentin to address breakthrough anxiety symptoms. 3. R/O ADHD symptoms once anxiety is more stable. Today Tiffanie shares that she has been doing better. Continues to struggle with stress. Today was a rough day with her children and appointments. She is trying to manage things better and adjusting to her baby's schedule. Tolerated Prozac without any side effects. Noticed a positive difference. Does experience some episodes of breakthrough anxiety. Has been on a higher dose of Prozac in the past. Gabapentin has been helpful to take as needed. Denies any side effects. The current combination of medications is helping her cope better with her anxiety. I am no longer feeling like I am losing my mind. Would like to try a higher dose of Prozac to address these breakthrough episodes of anxiety and seeif she is able to manage her stress better. Continues to work and manage her responsibilities at home. Even though the vacation last month visiting family was stressful, she felt that it was more manageable due to her medications. Interval Progress: Slightly improved PATIENT DATA: Generalized Anxiety Disorder Scale (CRIS-7) 10/30/2023 11/27/2023 01/01/2024 CRIS - 7 SCORES Score 14 14 21 14 (0-4) minimal anxiety, (5-9) mild anxiety, (10-14) moderate anxiety, (15-21) severe anxiety Patient Health Questionnaire (PHQ-9) 10/30/2023 11/27/2023 01/01/2024 PHQ-9 Score 9 9 8 9 (0-4) minimal depression, (5-9) mild depression, (10-14) moderate depression, (15-19) moderately severe depression, (20-27) severe depression PAST MEDICAL HISTORY Diagnosis Date Abnormal glandular Papanicolaou smear of cervix 2000 Bilateral ovarian cysts depression Gestational diabetes mellitus, class A1 03/15/2021 History of drug use meth and heroine. Denies use x 1 year 09/2020 History of hepatitis C 11/26/2020 Migraine without aura and without status migrainosus, not intractable PAST SURGICAL HISTORY Procedure Laterality Date CRYO CAUTERY CERVIX 2000 ALLERGIES No Known Allergies Current Outpatient Medications on File Prior to Visit Medication Sig gabapentin (NEURONTIN) 100 mg capsule Take 2 capsules by mouth three times a day as needed (anxiety) for up to 30 days. FLUoxetine (PROZAC) 40 mg capsule Take 1 capsule by mouth once daily. acetaminophen 325 mg cap Take by mouth as directed. Kofxnsml-Ms-Maq-Fe-FA ( VITAMIN) tab Take 1 tablet by mouth. No current facility-administered medications on file prior to visit. ROS: All other systems negative. PFSH: See HPI VITAL SIGNS: There were no vitals filed for this visit. MENTAL STATUS EXAMINATION: Mental Status Exam General/Sensorium: Alert Orientation: AAOx3 Appearance: Casually dressed and disheveled Eye contact: Appropriate Demeanor: Appropriately interactive Motor activity: Calm Speech: Articulate with appropriate rhythm and volume Mood: Euthymic- slightly distracted due to her children being around her. Affect: Congruent with mood Thought process: Within normal limits and linear, logical, and goal-directed Associations: Normal Thought content: Appropriate and focused on history, symptoms, and management Suicidal ideation: none Homicidal ideation: none Abnormal/psychotic thoughts: Absent Perceptions: She does not appear internally stimulated. Intelligence: Average Attention: Intact Memory: Short-term: Intact Long-term: Intact Language: Intact Fund of knowledge: Fair Insight: Fair Judgment: Fair Gait: Not observed Station: Sitting DATA REVIEWED: Psychiatric scales, Electronic medical record, and labs DIAGNOSIS: Panic disorder with agoraphobia MDD, recurrent, in partial remission Heroin use disorder, severe, in sustained remission, dependence GAF: -70-61 Some mild symptoms or some difficulty in social, occupational, or school functioning, but generally functioning pretty well. TREATMENT PLAN: Medications: Increase Prozac to address anxiety symptoms. Continue Gabapentin at the same dose. Lab work: none Other: R/O ADHD if needed after anxiety is more stable. For those experiencing a suicidal crisis: --call the National Suicide Prevention Lifeline at 707 (496-496-5485) --text the Crisis Text Line (text HOME to 116050) --call 511 and let them know you are having a mental health crisis or go to your nearest Emergency Room for stabilization. --You can also call Mobile Crisis at [phone]. MEDICATION CHANGES: See above for changes Risks and benefits of the medication, including any black box warnings, were discussed with the patient. Patient educated on risks of substance use in combination with medications and advised that any substance use along with medications may alter their effectiveness. Follow Up: 2 months I spent a total of 36 minutes on the date of the service which included preparing to see the patient, [id number] patient care, completing clinical documentation, and counseling and educating the patient/family/caregiver, ordering medications/labs. ADD ON PSYCHOTHERAPY CODE : No SIGNATURE: Kalyani Rois APRN.CNP PATIENT NAME: Tiffanie Cortez DATE: January 01, 2024 TIME: 1:38 PM documented in this encounterRegency [facility]04-11-2024 Miscellaneous Notes* Telephone Encounter - Mary Elias LPN - 12/28/2023 1:22 PM EDT Patient has been identified by name and date of : Yes Requested Prescriptions Pending Prescriptions Disp Refills gabapentin (NEURONTIN) 100 mg capsule 180 capsule 0 Sig: Take 2 capsules by mouth three times a day as needed (anxiety) for up to 30 days. FLUoxetine (PROZAC) 40 mg capsule 30 capsule 1 Sig: Take 1 capsule by mouth once daily. RX INSTRUCTIONS: Patient aware RX will be sent to pharmacy. No need to notify patient. Follow up 01/01/2024. Mary Elias LPN documented in this encounterRegency Hospital [facility]03-11-2024 Instructions* Patient Instructions* Kalyani Rios APRN.CNP - 11/27/2023 1:30 PM EDT Antonette Sandhu, It was good to talk with you today. Below is a summary of the plan that we discussed during your appointment for reference. Of course, if you have any questions or concerns do not hesitate to reach out to me via a message or call. Kalyani Bryant APRN.CNP PLAN AND FOLLOW UP: YOU SHOULD SEEK IMMEDIATE MEDICAL ATTENTION AT THE NEAREST EMERGENCY DEPARTMENT OR BY CALLING 911, IF ANY OF THE FOLLOWING OCCURS: - New or worsening thoughts of harming yourself (suicidal thoughts) or others (homicidal thoughts) - Not feeling safe at home or worrying about your ability to remain safe at home If you are having thoughts of harming yourself or others, then you can: - Call the National Suicide Hotline at 988 - Text 4HOPE to 768 Medications: - Prozac 40 mg - take 1 capsule once daily. - Gabapentin 100 mg - take 2 capsules up to three times daily as needed to manage anxiety symptoms. Next appointment: --Schedule in 4 to 6 weeks or sooner if needed -- You may call the department appointment line at [phone] to schedule your appointment. -- Please call my nurse Mary at [phone] or send me a message in [employer] with any questions or concerns between appointments. documented in this encounterReg[facility] History of Present illness Narrative* Kalyani Rios APRN.CNP - 11/27/2023 1:04 PM EDT FOLLOW UP - PSYCHIATRIC PROGRESS NOTE Visit Type:Virtual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 296.32, ICD10: F33.1 Will set up with psychiatry for management given patient's hx. Will restart prozac for now. 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 VISIT Tiffanie Cortez is a 32 year old year old here for visit. Delivery Summary: 05/05/2023 Female Kaislee 6lb 9 oz ROS/ Recovery: Feeding: Breast feeding problems: None Menses since delivery: none Menstrual pattern prior to : Regular periods [place] since delivery: Not resumed Depression: denies symptoms of depression. OB Depression and Anxiety Screening- This Encounter (since 06/27/2023) Over the past 2 weeks have you felt down, depressed, or hopeless? Negative Over the past two weeks, have you felt little interest or pleasure in doing things? Negative Feeling nervous, anxious or on edge 0-Not at all Not being able to stop or control worrying 0-Not al all Anxiety Pre-Screening Total (If >/= 3 additional questions will be reviewed) 0 Emotional support: Yes Bowel symptoms: Negative for abdominal discomfort, blood in stools or black stools and change in bowel habits Abdomen: N/A Bladder symptoms: No dysuria, gross hematuria, urinary frequency, urinary urgency, or incontinence Other issues: None Last Pap: 2019 normal HPV: negative PAST MEDICAL HISTORY Diagnosis Date Abnormal glandular Papanicolaou smear of cervix 2000 Bilateral ovarian cysts depression Gestational diabetes mellitus, class A1 03/15/2021 History of drug use meth and heroine. Denies use x 1 year 09/2020 History of hepatitis C 11/26/2020 Migraine without aura and without status migrainosus, not intractable PAST SURGICAL HISTORY Procedure Laterality Date CRYO CAUTERY CERVIX 2001 FAMILY HISTORY Problem Relation Age of Onset Hypertension Mother Hypertension Father No Known Problems Brother No Known Problems Maternal Grandmother Heart Attack Maternal Grandfather No Known Problems Paternal Grandmother Heart Attack Paternal Grandfather No Known Problems Daughter Social History Tobacco Use Smoking status: Former Years: 8 Types: Cigarettes Quit date: 09/28/2020 Years since quittin.7 Smokeless tobacco: Never Tobacco comments: Pt uses nicotine vape Vaping Use Vaping Use: current everyday user Substances: Nicotine (2%) Substance Use Topics Alcohol use: Not Currently Drug use: Not Currently Types: Amphetamines, Heroin PHYSICAL EXAMINATION: BP 120/72 Wt 225 lb (102.1kg) LMP 08/17/2022 GENERAL: pleasant, female in no apparent distress HEENT: Normocephalic, atraumatic, mucus membranes moist, and no lesions NECK: Supple, full range of motion, no adenopathy, and thyroid normal DERMATOLOGY: Normal, without lesions, non-icteric, and non-hirsute BREAST: soft, non-tender, symmetric, no dominant mass, normal nipple-areolar complex, no lymphadenopathy, and no nipple discharge ABDOMEN: soft, non-tender, and no masses. PELVIC: external genitalia normal, normal Bartholin's glands, urethra, [place]'s glands, no vulvar lesions, no cervical lesions, good vaginal support, physiologic discharge present, normal appearing perineal body and perianal region BIMANUAL: uterus normal size, shape and consistency, no adnexal masses, and non-tender NEURO: alert and oriented x3,exam grossly non-focal EXTREMITIES: normal ASSESSMENT AND PLAN: 32 year old status post with normal course. Contraception plan: condoms - then nuva ring Follow up: GDM: Needs 2 hour GTT, RTC for annual exams and PRN Christian Urias MD documented in this encounterRegency [facility]08-21-2023 Miscellaneous Notes* Telephone Encounter - Quynh Lovelysymone SERRANO - 05/08/2023 2:55 PM EDT Contacted pt and given bleeding precautions. Pt voiced understanding with no further voiced questions or concerns. Lovely Beauchamp LPN * Telephone Encounter - Kervin Ovalle APRN.CNM - 05/08/2023 2:51 PM EDT Please just review bleeding precautions. If starts passing clots, feeling dizzy, headache, SOB or CP needs seen in ED. Kervin Ovalle APRN.CNM * Telephone Encounter - Eleanor Vidal RN - 05/08/2023 2:47 PM EDT Patient delivered 05/05/23. States she passed x1 egg sized blood clot. Her bleeding is super light. Denies N/V, pain, SOB, CP, dizziness, or fatigue. Patient was sitting for an extended period of time before passing the clot. Her has been in special care nursery. Scheduled her 2 week PP. Please advise. Eleanor Vidal RN documented in this encounterRegency Hospital [facility]08-19-2023 Discharge summary Author Tramaine milner [facility] May 06, 2023 8:38am Note Date/Time May 06, 2023 8: 37am [facility] Medical Records Department [address] [place] [id number] Instructions for Home/Discharge Instructions 05/06/23 0837 MR#: [id number] Acct: [id number] Name: TIFFANIE CORTEZ Rep #:[id number] : 1990 32 From: Christian Bocye MD PCP: Status:ADM IN Discharge Instructions Diet Discharge Diet: No restrictions Activity May resume sexual activity in: 6-8 weeks Dressing / Incision Call your doctor if you observe: Fever of 101 or Higher, Inability to urinate, Using more than 1 pad per hour and Uncontrolled pain Follow Up Care Please Follow Up With: NeChristian [place] MD When: 1-2 weeks post and again at 6 weeks post . [phone] Test Results: Test results from this visit will be discussed in further detail at your follow- up appointment, if applicable. Discharge Plan Admission Admit Date/Time: 05/04/23 15:00 Attending Provider: Christian Urias Discharge Orders/Prescriptions Prescriptions: New acetaminophen 500 mg Tablet 1,000 mg PO Q6H PRN PRN (Reason: Pain 1-10 Or Fever) Qty: 0 0RF Continued [id number]-[id number]-Eo-FA 1 mg Tablet 1 tab PO DAILY Discontinued acetaminophen 500 mg Tablet 1,000 mg PO Q6H PRN PRN (Reason: Pain 1-10 Or Fever) Qty: 0 0RF Novolin N NPH U-100 Insulin 100 unit/mL suspension SUBCUT Patient Comments: INJECT 14 units SUBCUTANEOUSLY DAILY AT BEDTIME metoclopramide HCl [Reglan] 10 mg tablet 10 mg PO Q6H Patient Comments: prn aspirin 81 mg capsule 81 mg PO DAILY Disposition Disposition (needs filled in before D/C Order can be placed): Home, Self Care 05/06/23 0838<Electronically signed by Christian Urias MD>Christian Urias MD CC: ~ Signed [facility] Work Phone: 1(359) 718-726808-19-2023 Progress note Author Tramaine milner [facility] May 06, 2023 8:36am Note Date/Time May 06, 2023 8: 37am [facility] Medical Records Department [address] [place] [address] Progress Note 05/06/23 0835 MR#: [id number] Acct: [id number] Name: DIEGOTIFFANIE CORLEYN Rep #:[id number] : 1990 32 From: Christian Boyce MD PCP: Status:ADM IN Location: [place] [id number] Subjective Subjective patient seen at bedside, doing well. Patient reports good pain control. lochia mild. Objective Data Objective Data Vital Signs: Vital Signs Temp Pulse Resp BP Pulse Ox O2 Del Method 98.1 F 74 16 130/86 H 99 Room Air 05/06/23 03:30 05/06/23 03:30 05/06/23 03:30 05/06/23 03:30 05/06/23 03:30 05/06/23 03:30 Oxygen Delivery Method Room Air Weight: 112 kg Body Mass Index (BMI) 37.5 Intake & Output: Intake and Output for Last 24 Hours 05/04/23 05/05/23 05/06/23 23:59 23:59 23:59 Intake Total 36.57 / 36.57 4189.30 / 4189.30 Output Total 850 / 850 Balance 36.57 / 36.57 3339.30 / 3339.30 Lab / Micro Data 05/04/23 16:15 Labs: Laboratory Results - last 24 hr 05/05/23 11:17: POC Glucose 79 05/05/23 13:13: POC Glucose 101 05/06/23 05:03: POC Glucose 90 Physical Exam Const alert and oriented x3 General Appearance: cooperative HEENT normocephalic Neck General: normal visual inspection GI soft to palpation and non-distended GI Narrative: Fundus firm Extremity normal to inspection and no calf tenderness Skin no rashes or lesions noted Neuro oriented x3 and CN's II-XII intact bilaterally Psych mental status grossly normal Assessment & Plan Assessment/Plan (1) Vaginal delivery: (2) Gestational diabetes requiring insulin: (3) Hepatitis C antibody positive in blood: PLAN: Plan PPD#1 , Doing well Routine care pain mgmt ambulation baby in SCN- [facility] 05/06/23 0836 <Electronically signed by Christian Urias MD> Christian Urias MD Cosigner Signature (if applicable): CC: ~ Signed [facility] Work Phone: 1(812) 922-978108-18-2023 History of Present illness Narrative* Eleanor Vidal RN - 05/05/2023 12:49 PM EDT Patient delivered via at [facility] on 05/05/23 per Christian Boyce MD. See OB Outcome note. Eleanor Vidal RN documented in this encounterRegency Hospital [facility]08-18-2023 Procedure [facility]08-18-2023 Progress note Author Tramaine milner [facility] May 05, 2023 8:25am Note Date/Time May 05, 2023 8: 25am [facility] Medical Records Department [address] [place] [address] Progress Note 05/05/23822 MR#: [id number] Acct: [id number] Name: TIFFANIE CORTEZ Rep #:[id number] : 1990 32 From: Christian Boyce MD PCP: Care Physician,No Primary Status :ADM IN Location: AA803-8 Progress Note pt side, resting comfortably. Epidural in place. heart tracing category 1 reactive. Pitocin at 20mu. . AROM performed large amt of clear fluid. 4-/-2. anticipate 05/05/23824 <Electronically signed by Christian Urias MD> Christian Urias MD Cosigner Signature (if applicable): CC: ~ Signed [facility] Work Phone: 1(607) 690-511308-17-2023 History and physical note Author Rukhsana Mckinnon [facility] May 04, 2023 6:22pm Note Date/Time May 04, 2023 6: 22pm [facility] Medical Records Department [address] [place] [address] H&P Exam - [employer] SANDER 05/04/23 1809 MR#: [id number] Acct: [id number] Name: DIEGOTIFFANIE HDZ Rep #:[id number] : 1990 32 From: Rukhsana Mckinnon MD PCP: Care Physician,No Primary Status :ADM IN Location: [id number] HPI - General General Date of Admission: 05/04/23 Date of Service: 05/04/23 HPI Narrative TIFFANIE CORTEZ, is a 32 F who presents for induction due to BPP 12/24 in the office today. Maternal Data Information LAURA Calculator Estimated Delivery Date Method Current WG Current Estimate 05/24/23 Manual 37w 1d Final LAURA: 05/24/23 Gestational age: 37&1 PFSH PFSH Medical History (Updated 05/04/23 @ 18:[address] Rukhsana Mckinnon MD) 34 weeks gestation of Anxiety Depression Gestational diabetes Headache Hepatitis Home Medications tvqcukeb-tfk-Iv-FA 1 mg tablet 1 tab PO DAILY 05/20/21 [History Last Taken 05/04/23] acetaminophen 500 mg tablet 1,000 mg (2 x 500 mg) PO Q6H PRN PRN Pain 1-10 Or Fever #0 tabs 05/22/21 [Rx Last Taken 05/04/23] aspirin 81 mg capsule 81 mg PO DAILY 04/16/23 [History Last Taken 05/04/23] metoclopramide HCl 10 mg tablet (Reglan) 10 mg PO Q6H migraines 04/16/23 [History Last Taken 05/03/23] insulin NPH isoph U-100 human 100 unit/mL subcutaneous suspension (Novolin N NPHU-100 Insulin isophane) unit subcut gestational diabetes 05/04/23 [History Last Taken 05/03/23] Allergy/AdvReac Type Severity Reaction Status Date / Time No Known Allergies Allergy Verified 05/04/23 17:12 Surgical History History of gynecologic surgery Social History Smoking Status: Former smoker History Elective abortions Hx Para 1 Spontaneous abortions Hx # Term Pregnancies Ectopic pregnancies Hx # Pregnancies Multiple births # of living children NST FHR Rate Baby A Baseline: 135 Variability:: Moderate Accelerations:: 15 x 15 Decelerations:: None Uterine Activity:: Irregular Vital Signs Vital Signs Vital Signs: 05/04/23 15:26 05/04/23 15:26 05/04/23 15:26 Temperature Temperature Source Pulse Rate 90 Blood Pressure 126/79 H BP Systolic 126 BP Diastolic 79 Pulse Ox 97 05/04/23 15:26 05/04/23 15:26 05/04/23 17:09 Temperature 97.6 F L Temperature Source Temporal Temporal Pulse Rate Blood Pressure BP Systolic BP Diastolic Pulse Ox 05/04/23 17:09 05/04/23 17:11 05/04/23 17:11 Temperature 97.3 F L Temperature Source Pulse Rate 88 Blood Pressure 120/75 BP Systolic 120 BP Diastolic 75 Pulse Ox 05/04/23 17:11 Temperature Temperature Source Pulse Rate Blood Pressure BP Systolic BP Diastolic Pulse Ox 98 Weight Weight: 246 lb 14.684 oz Body Mass Index (BMI) 37.5 Physical Exam Const alert, oriented x3 and no apparent distress Chest inspection of chest normal Resp normal respiratory effort GI soft to palpation, non-tender and non-distended Inspection: gravid external exam normal Narrative: cvx - /50/-3, intracervical trevizo placed Labs Labs Labs: Blood Type O POSITIVE Antibody Screen NEGATIVE Hct 36.8 % (37-47) L Hgb 12.1 g/dL (12.0-15.0) Syphilis Total Ab Pending see [facility] H&P Assessment & Plan (1) 37 weeks gestation of : COMMENT: @ 37&1 (2) Gestational diabetes requiring insulin: (3) Hepatitis C antibody positive in blood: COMMENT: viral load negative 10/10/22 (4) History of cryosurgery of cervix affecting : QUALIFIERS: Trimester: third trimester Qualified Code(s): O34.43 - Maternal care for other abnormalities of cervix, third trimester; Z98.890 - Other specified postprocedural states (5) History of biophysical profile: COMMENT: BPP 12/24 in office today PLAN: Plan Admit to L&D Proceed with induction - on pitocin & intracervical trevizo placed GDMA2 - diabetic protocol Pain - epidural as desired EFW - less than 4500g, patient with adequate pelvis Routine care 05/04/231821 <Electronically signed by Rukhsana Mckinnon MD> Cosigner Signature (if applicable): CC: Dr. Rukhsana Mckinnon MD; No Primary Care Physician~ Signed [facility] Work Phone: 1(409) 946-565208-17-2023 Miscellaneous Notes* Quick Notes - Rukhsana Mckinnon MD - 05/04/2023 2:13 PM EDT Patient to L&D for IOL d/t BPP of 12/24. Rukhsana Mckinnon MD documented in this encounterRegency [facility]08-17-2023 Instructions* Patient Instructions* Kristal Paul Ma - 05/04/2023 1:59 PM EDT SEQUENTIAL SCREENINGS [facility] offers sequential screenings for women who are interested in screenings for chromosomal abnormalities and certain defects during a . The sequential screen combinesultrasound and blood tests to determine the risk of chromosomal abnormalities, including Down's Syndrome (Trisomy 21) and Trisomy 18, as well as open neural tube defects including spina bifida. Ultrasound examination is performed between 11 weeks and 13 weeks gestational age. Blood tests are drawn after the ultrasound and again later in the between 15 and 21 weeks gestational age. Please let your physician know if you are interested in this testing. It will require an appointment withour body shop technician. This is not an ultrasound performed by a physician in our office during a routine visit. SIGNS AND SYMPTOMS OF LABOR 1. Contractions every 10 minutes or more often 2. Clear, pink, or brownish fluid (water) leaking from vagina 3. Feeling that baby is pushing down, pressure 4. Low, dull backache 5. Cramps that feel like a period 6. Cramps with or without diarrhea If you notice any of the above symptoms, contact our office at [phone] and ask to speak with anurse. After hours, you can call doctors registry at [phone] OR call [facility] at [phone] ask to have the doctor education analyst paged. If you consider this an emergency, dial 9-3-5 or go to your nearest emergency department. NEED HELP? Are you dealing with a violent or abusive relationship? Are you a victim of rape or sexual assult? Call [facility] ([place]) 24 hour Crisis Hotline: 330.459.3520 or 936-841-8244. MANUAL Your Guide to a Healthy manual is now on-line. Visit [email or web address] to download your free copy documented in this encounterRegency [facility]08-14-2023 History of Present illness Narrative* Kervin Ovalle APRN.CNM - 05/01/2023 4:17 PM EDT NST SUMMARY PROVIDER ASSESSMENT AND INTERPRETATION Tiffanie Cortez is a 32 year old female, , who is at 36w5d with an LAURA of 05/24/2023, by Last Menstrual Period dating method. Indications for NST: Gestational Diabetes - Insulin Controlled and Obesity Baseline: 140 Variability: Moderate Accelerations: Present 15 X 15 Decelerations: None Contractions: TOCO: None Interpretation: Category I and Reactive SIGNATURE: Kervin Ovalle APRN.CNM documented in this encounterRegency Hospital [facility]08-14-2023 Miscellaneous Notes* Quick Notes - Kervin Ovalle APRN.CNM - 05/01/2023 4:16 PM EDT Patient seen for NST only today. NST reactive, Cat. 1 tracing. RTO- this week for BPP and BEATRIZ.Kervin Ovalle APRN.CNM documented in this encounterRegency Hospital [facility]08-14-2023 Instructions* Patient Instructions* Luan Lindquist Cma - 05/01/2023 3:41 PM EDT SEQUENTIAL SCREENINGS [facility] offers sequential screenings for women who are interested in screenings for chromosomal abnormalities and certain defects during a . The sequential screen combinesultrasound and blood tests to determine the risk of chromosomal abnormalities, including Down's Syndrome (Trisomy 21) and Trisomy 18, as well as open neural tube defects including spina bifida. Ultrasound examination is performed between 11 weeks and 13 weeks gestational age. Blood tests are drawn after the ultrasound and again later in the between 15 and 21 weeks gestational age. Please let your physician know if you are interested in this testing. It will require an appointment withour body shop technician. This is not an ultrasound performed by a physician in our office during a routine visit. SIGNS AND SYMPTOMS OF LABOR 1. Contractions every 10 minutes or more often 2. Clear, pink, or brownish fluid (water) leaking from vagina 3. Feeling that baby is pushing down, pressure 4. Low, dull backache 5. Cramps that feel like a period 6. Cramps with or without diarrhea If you notice any of the above symptoms, contact our office at [phone] and ask to speak with anurse. After hours, you can call doctors registry at [phone] OR call [facility] at [phone] ask to have the doctor education analyst paged. If you consider this an emergency, dial 9--0 or go to your nearest emergency department. NEED HELP? Are you dealing with a violent or abusive relationship? Are you a victim of rape or sexual assult? Call [facility] ([place]) 24 hour Crisis Hotline: 287.558.6428 or 251-947-4647. MANUAL Your Guide to a Healthy manual is now on-line. Visit [email or web address] to download your free copy documented in this encounterRegency Hospital [facility]08-11-2023 Miscellaneous Notes* Quick Notes - Rukhsana Mckinnon MD - 04/28/2023 11:50 AM EDT KJ - VB No. LOF No. CTXS No. Movement: present. Other c/o: No. Medication list reviewed. Physical Exam See Flow Sheet Gen: no accute distress, well appearing Abd: soft, nontender, gravid A/P 36w2d Estimated Date of Delivery: 05/24/23 Labs: GBS done GDMA2 - just started NPH insulin last night. FBS this am was 103, prior were 94- 125. Majority of PPBS are normal. Will increase bedtime NPH to 14. Continue 2x week testing. Plan for delivery at 39 weeks. PTL precautions reviewed, Kick counts reviewed. Rukhsana Mckinnon MD documented in this encounterRegency Hospital [facility]08-11-2023 Instructions* Patient Instructions* Kristal Paul Ma - 04/28/2023 11:07 AM EDT SEQUENTIAL SCREENINGS [facility] offers sequential screenings for women who are interested in screenings for chromosomal abnormalities and certain defects during a . The sequential screen combinesultrasound and blood tests to determine the risk of chromosomal abnormalities, including Down's Syndrome (Trisomy 21) and Trisomy 18, as well as open neural tube defects including spina bifida. Ultrasound examination is performed between 11 weeks and 13 weeks gestational age. Blood tests are drawn after the ultrasound and again later in the between 15 and 21 weeks gestational age. Please let your physician know if you are interested in this testing. It will require an appointment withour body shop technician. This is not an ultrasound performed by a physician in our office during a routine visit. SIGNS AND SYMPTOMS OF LABOR 1. Contractions every 10 minutes or more often 2. Clear, pink, or brownish fluid (water) leaking from vagina 3. Feeling that baby is pushing down, pressure 4. Low, dull backache 5. Cramps that feel like a period 6. Cramps with or without diarrhea If you notice any of the above symptoms, contact our office at [phone] and ask to speak with anurse. After hours, you can call doctors registry at [phone] OR call [facility] at [phone] ask to have the doctor education analyst paged. If you consider this an emergency, dial 9-5-3 or go to your nearest emergency department. NEED HELP? Are you dealing with a violent or abusive relationship? Are you a victim of rape or sexual assult? Call [facility] [place] ([facility] 24 hour Crisis Hotline: 732.956.5802 or 532-217-6146. MANUAL Your Guide to a Healthy manual is now on-line. Visit [email or web address] to download your free copy documented in this encounterRegency Hospital [facility]08-09-2023 Instructions* Patient Instructions* Valarie Potter RD - 04/26/2023 3:30 PM EDT Have breakfast, at least have a protein drink or low carb nutrition drink Continue carb controlled diet Try to keep proteins lean and low fat as much as possible Include an evening snack of protein and whole grain/fiber, ~15 grams carb Add in 30 min cardio/walking most days documented in this encounterRegency Hospital [facility]08-09-2023 History of Present illness Narrative* Valarie Potter RD - 04/26/2023 3:07 PM EDT [facility] Nutrition Therapy: Virtual Consult - Re-assessment I have communicated my name and active licensure. The patient s identity and physical location wereverified at the time of this visit. Either the patient or their legal factory representative has been informed of the risks and benefits of -- and alternatives to -- treatment through a remote evaluation andconsents to proceed with the evaluation remotely. Nutrition Diagnosis: Altered nutrition-related lab values, related to, and endocrine dysfunction, as evidenced by elevated blood sugars RECOMMENDED MALNUTRITION DIAGNOSIS: NO MALNUTRITION IDENTIFIED NUTRITION CARE PLAN: Nutrition Intervention 04/26/2023: modify type and amount of food or beverage Have breakfast, at least have a protein drink or low carb nutrition drink Continue carb controlled diet Try to keep proteins lean and low fat as much as possible Include an evening snack of protein and whole grain/fiber, ~15 grams carb Add in 30 min cardio/walking most days Nutrition Monitoring & Evaluation: blood sugar in target range Need for Follow up: as needed PROGRESS: Interval History: following as relates to gestation daibetes now at 36 weeks. Intake includes usually skipping breakfast, includes frequent high fat, high saturated fat foods. Usually no evening snacks. Is active during the day but no formal exercise. Fasting blood sugar remains above target, insulin order but insurance denied and so far unable to get insulin for 9 days. Nutrition Intervention 04/12/23 Goals: Fasting glucose <95 mg/dL; 1 hr glucose ,140 mg/dL, 2 hr glucose ,120 mg/dL; mean glucoseof 86 mg/dL. 1. Distribute carbohydrate evening throught out the day, Choose whole grain starches and grains, avoid white and refined grains and sources of concentration sugars . Carbohydrates are the starches, fruits and milk group and is defined as 15 grams per serving/choice. 2. Keep breakfast at 15-30 grams carbohydrate; meals 30-45 grams and snacks 15- grams of carbohydrate, include healthy protein in meals and snacks. 3. Distribute meals and snacks every 2-3 hours. 4. Aim for 28 grams of fiber. 5. Limit saturated fat, choose lean proteins, healthy fast such as olive oil, canola oil, avocados,nuts/seeds, etc. 6. 7. Daily exercise of 30-60 minutes Actions to implement interventions: 2-3 carb choices per meal Active throughout the day Monitoring blood sugars Diet History: 97-113 Breakfast - coffee; omelet with veggies and two patel; but usually skip 115/107/101/114 Snack - no Lunch - carb balance wrap with turkey and cheese 2hrpp-108/120/106/100 Snack - hot dog on bun, baked beans Dinner - sliders, poppers no breading 102/156 last night one hour, 109/105 Snack - occ string cheese Beverages - water, SF drinks Alcohol - no Vitamins/Supplements - Activity: Activities of Daily Living: Active 75% of the day. 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 Resting Metabolic Rate: 1853 Malnutrition Screening Significant unintentional weight loss? No Eating less than 75% of usual intake for more than 2 weeks? No Potential Signs of Inflammation: no identifiable sources Nutritional status: Education Materials Provided: None this visit READINESS TO LEARN Cognitive ability: Alert and oriented Motivation to learn: Interested Family support: Unable to assess - Family not present Instruction provided to: Patient Patient learns best by: Individual Instruction Factors affecting learning: None Physical limitations affecting learning: None Likelihood of Adherence: Moderate Referred by: Austen MONTEJO Billing Type: Re-assess/15 min 2 units SIGNATURE: Valarie Potter RD PATIENT NAME: Tiffanie Cortez DATE: 04/26/2023 TIME: 3:09 PM [facility] History of Present illness Narrative* Kervin Ovalle APRN.CNM - 04/24/2023 4:19 PM EDT NST SUMMARY PROVIDER ASSESSMENT AND INTERPRETATION Tiffanie Cortez is a 32 year old female, , who is at 35w5d with an LAURA of 05/24/2023, by Last Menstrual Period dating method. Indications for NST: Diabetes - Insulin Controlled and Obesity Baseline: 130 Variability: Moderate Accelerations: Present 15 X 15 Decelerations: None Contractions: TOCO: None Interpretation: Category I and Reactive SIGNATURE: Kervin Ovalle APRN.CNM documented in this encounterReg[facility]-07-2023 Miscellaneous Notes* Quick Notes - Kervin Ovalle APRN.CNM - 04/24/2023 4:18 PM EDT Patient for NST only. Reactive and Cat. 1 tracing. Scheduled for BEATRIZ this week. Kervin Ovalle APRN.CNM documented in this encounterRegency [facility]-07-2023 Instructions* Patient Instructions* Luan Lindquist Cma - 04/24/2023 3:18 PM EDT SEQUENTIAL SCREENINGS [facility] offers sequential screenings for women who are interested in screenings for chromosomal abnormalities and certain defects during a . The sequential screen combinesultrasound and blood tests to determine the risk of chromosomal abnormalities, including Down's Syndrome (Trisomy 21) and Trisomy 18, as well as open neural tube defects including spina bifida. Ultrasound examination is performed between 11 weeks and 13 weeks gestational age. Blood tests are drawn after the ultrasound and again later in the between 15 and 21 weeks gestational age. Please let your physician know if you are interested in this testing. It will require an appointment withour body shop technician. This is not an ultrasound performed by a physician in our office during a routine visit. SIGNS AND SYMPTOMS OF LABOR 1. Contractions every 10 minutes or more often 2. Clear, pink, or brownish fluid (water) leaking from vagina 3. Feeling that baby is pushing down, pressure 4. Low, dull backache 5. Cramps that feel like a period 6. Cramps with or without diarrhea If you notice any of the above symptoms, contact our office at [phone] and ask to speak with anurse. After hours, you can call doctors registry at [phone] OR call [facility] at [phone] ask to have the doctor education analyst paged. If you consider this an emergency, dial 6--0 or go to your nearest emergency department. NEED HELP? Are you dealing with a violent or abusive relationship? Are you a victim of rape or sexual assult? Call [facility] ([place]) 24 hour Crisis Hotline: 664.511.1382 or 874-403-8486. MANUAL Your Guide to a Healthy manual is now on-line. Visit [email or web address] to download your free copy documented in this encounterReg[facility]07-31-[facility]23 Miscellaneous Notes* Quick Notes - Christian Neri MD - 04/17/2023 4:14 PM EDT DM-Pt doing well. Denies vaginal Bleeding, Leaking fluid, or regular Contractions. Pt reports good movement Physical Exam: Gen: female in no apparent distress Abd: soft, Gravid. Non tender to palpation. See flow sheet A/P: @ 34.5 weeks GMDA2 1) BS log reviewed- Fastings elevated will start NPH 10 Units at night. PP all well controlled. 2) will set up for certified lactation educator 3) twice weekly testing ordered, has growth us scheduled 4) reviewed delivery 39 weeks or sooner if indicated 5) had NST on L&D last night Christian Urias MD documented in this encounterReg[facility]07-31-2023 Instructions* Patient Instructions* Ally Ca Ma - 04/17/2023 1:28 PM EDT SEQUENTIAL SCREENINGS [facility] offers sequential screenings for women who are interested in screenings for chromosomal abnormalities and certain defects during a . The sequential screen combinesultrasound and blood tests to determine the risk of chromosomal abnormalities, including Down's Syndrome (Trisomy 21) and Trisomy 18, as well as open neural tube defects including spina bifida. Ultrasound examination is performed between 11 weeks and 13 weeks gestational age. Blood tests are drawn after the ultrasound and again later in the between 15 and 21 weeks gestational age. Please let your physician know if you are interested in this testing. It will require an appointment withour body shop technician. This is not an ultrasound performed by a physician in our office during a routine visit. SIGNS AND SYMPTOMS OF LABOR 1. Contractions every 10 minutes or more often 2. Clear, pink, or brownish fluid (water) leaking from vagina 3. Feeling that baby is pushing down, pressure 4. Low, dull backache 5. Cramps that feel like a period 6. Cramps with or without diarrhea If you notice any of the above symptoms, contact our office at [phone] and ask to speak with anurse. After hours, you can call doctors registry at [phone] OR call [facility] at [phone] ask to have the doctor education analyst paged. If you consider this an emergency, dial 91-0 or go to your nearest emergency department. NEED HELP? Are you dealing with a violent or abusive relationship? Are you a victim of rape or sexual assult? Call [facility] ([place]) 24 hour Crisis Hotline: 657.455.7498 or 747-403-6652. MANUAL Your Guide to a Healthy manual is now on-line. Visit [email or web address] to download your free copy documented in this encounterReg[facility]07-26-2023 Instructions* Patient Instructions* Valarie Potter RD - 04/12/2023 3:12 PM EDT Goals: Fasting glucose <95 mg/dL; 1 hr glucose ,140 mg/dL, 2 hr glucose ,120 mg/dL; mean glucoseof 86 mg/dL. 1. Distribute carbohydrate evening throught out the day, Choose whole grain starches and grains, avoid white and refined grains and sources of concentration sugars . Carbohydrates are the starches, fruits and milk group and is defined as 15 grams per serving/choice. 2. Keep breakfast at 15-30 grams carbohydrate; meals 30-45 grams and snacks 15- grams of carbohydrate, include healthy protein in meals and snacks. 3. Distribute meals and snacks every 2-3 hours. 4. Aim for 28 grams of fiber. 5. Limit saturated fat, choose lean proteins, healthy fast such as olive oil, canola oil, avocados,nuts/seeds, etc. 6. 7. Daily exercise of 30-60 minutes documented in this encounterRegency [facility]07-26-2023 History of Present illness Narrative* Valarie Potter RD - 04/12/2023 2:28 PM EDT [facility] Nutrition Therapy: Virtual Consult - Initial Assessment I have communicated my name and active licensure. The patient s identity and physical location wereverified at the time of this visit. Either the patient or their legal factory representative has been informed of the risks and benefits of -- and alternatives to -- treatment through a remote evaluation andconsents to proceed with the evaluation remotely. Nutrition Diagnosis: Altered nutrition-related lab values, related to, and endocrine dysfunction, as evidenced by blood sugars above normal range . RECOMMENDED MALNUTRITION DIAGNOSIS: NO MALNUTRITION IDENTIFIED NUTRITION CARE PLAN Nutrition Intervention 04/12/2023: comprehensive nutrition education Goals: Fasting glucose <95 mg/dL; 1 hr glucose ,140 mg/dL, 2 hr glucose ,120 mg/dL; mean glucoseof 86 mg/dL. 1. Distribute carbohydrate evening throught out the day, Choose whole grain starches and grains, avoid white and refined grains and sources of concentration sugars . Carbohydrates are the starches, fruits and milk group and is defined as 15 grams per serving/choice. 2. Keep breakfast at 15-30 grams carbohydrate; meals 30-45 grams and snacks 15- grams of carbohydrate, include healthy protein in meals and snacks. 3. Distribute meals and snacks every 2-3 hours. 4. Aim for 28 grams of fiber. 5. Limit saturated fat, choose lean proteins, healthy fast such as olive oil, canola oil, avocados,nuts/seeds, etc. 6. 7. Daily exercise of 30-60 minutes Nutrition Monitoring & Evaluation: blood sugars in target range Need for Follow up: 2- weeks Patient presents for initial MNT as relates to gestational diabetes in 3rd trimester. Prepregnancy weight 235 range. Had GDM and MNT for first but did not modify diet. Has made changes to diet, limiting carbs. Usually skips breakfast. States fasting blood sugar was improving but last few days trending up. Tends to be active during the day, no formal exercise. Patient's symptoms are: elevated blood sugars Diet History: 93/96/97/99/100/110 Breakfast - usually skip. Other day had an egg 117/86/101/ Snack - occ fruit Lunch - salad with meat; carb balance wraps with turkey cheese and wiley; water, Snack - occ. Yesterday ice cream Dinner - if working salad with vinaigrette dressing with steak or grilled shrimp, broccoli 95/99/92/115/113 Snack - 2-3 psc cheese and 4 psc salami; pop corn Beverages - water, SF drink mix Alcohol- no Vitamins/Supplements - May not test when working Activity: Activities of Daily Living: Active 75% of the day. 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 Resting Metabolic Rate: 1853 Malnutrition Screening Significant unintentional weight loss? No Eating less than 75% of usual intake for more than 2 weeks? No Potential Signs of Inflammation: no identifiable sources Education Materials Provided: Gestational Diabetes Program and Healthy You - Planning Healthy Meals READINESS TO LEARN Cognitive ability: Alert and oriented Motivation to learn: Interested Family support: Unable to assess - Family not present Instruction provided to: Patient Patient learns best by: Individual Instruction Factors affecting learning: None Physical limitations affecting learning: None Referred by: Austen MONTEJO Billing Type: Initial Assess/15 min 2 units SIGNATURE: Valarie Potter RD PATIENT NAME: Tiffanie Cortez DATE: 04/12/2023 TIME: 2:33 PM documented in this encounterRegency [facility]07-19-2023 Miscellaneous Notes* Quick Notes - Christian Neri MD - 04/05/2023 4:27 PM EDT DM-Pt doing well. Denies vaginal Bleeding, Leaking fluid, or regular Contractions. Pt reports good movement. Pt brought BS log- states she did not see head charger- thought she was doing well withBS. Physical Exam: Gen: female in no apparent distress A/P: @ 33 weeks- GDMA1 1) reviewed- most fastings are elevated- low 100s discussed that my recommendation would be start insulin but since she has never seen head charger will give her one week to try to get diet under control as she is not following any diet at this time. - Orders placed and importance of this reviewed. 2) Growth Q4 weeks 3) Kick counts reviewed- follow up one to review BS and possibly start insulin at next visit 4) continue ASA 5) reglan and magnesium for KELLY Christian Urias MD documented in this encounterReg[facility]07-19-2023 Instructions* Patient Instructions* Darlene Maxwell Ma - 04/05/2023 3:11 PM EDT SEQUENTIAL SCREENINGS [facility] offers sequential screenings for women who are interested in screenings for chromosomal abnormalities and certain defects during a . The sequential screen combinesultrasound and blood tests to determine the risk of chromosomal abnormalities, including Down's Syndrome (Trisomy 21) and Trisomy 18, as well as open neural tube defects including spina bifida. Ultrasound examination is performed between 11 weeks and 13 weeks gestational age. Blood tests are drawn after the ultrasound and again later in the between 15 and 21 weeks gestational age. Please let your physician know if you are interested in this testing. It will require an appointment withour body shop technician. This is not an ultrasound performed by a physician in our office during a routine visit. SIGNS AND SYMPTOMS OF LABOR 1. Contractions every 10 minutes or more often 2. Clear, pink, or brownish fluid (water) leaking from vagina 3. Feeling that baby is pushing down, pressure 4. Low, dull backache 5. Cramps that feel like a period 6. Cramps with or without diarrhea If you notice any of the above symptoms, contact our office at [phone] and ask to speak with anurse. After hours, you can call doctors registry at [phone] OR call [facility] at [phone] ask to have the doctor education analyst paged. If you consider this an emergency, dial 3-4-8 or go to your nearest emergency department. NEED HELP? Are you dealing with a violent or abusive relationship? Are you a victim of rape or sexual assult? Call [facility] ([place]) 24 hour Crisis Hotline: 278.145.3164 or 738-334-3930. MANUAL Your Guide to a Healthy manual is now on-line. Visit [email or web address] to download your free copy documented in this encounterReg[facility]06-29-2023 Miscellaneous Notes* Telephone Encounter - Vincent Thomas MD - 03/16/2023 1:42 PM EDT fied * Telephone Encounter - Eleanor Vidal RN - 03/16/2023 10:32 AM EDT RX for Lancets pending. Can you please file in MARIANO's absence. * Telephone Encounter - Kristen Farr APRN.CNM - 03/14/2023 4:54 PM EDT Order signed. Kristen Farr APRN.CNM * Telephone Encounter - Cari Sorto RN - 03/14/2023 3:47 PM EDT Orders pended. Cari Sorto RN documented in this encounterRegency [facility]06-27-2023 Miscellaneous Notes* Quick Notes - Kristen Farr APRN.CNM - 03/14/2023 2:40 PM EDT MARIANO-S: Tiffanie Cortez is a 32 year old female who presents at 29w6d with LAURA:05/24/2023, by Last Menstrual Period for a routine visit. Good FM. Denies headache, visual changes, chest pain, shortnessof breath, vaginal bleeding, leakage of fluid, or dysuria. Feeling well, no complaints. O: See flow sheet Gen: No apparent distress Abd: Gravid, nontender ASSESSMENT/PLAN: 1. 29 weeks gestation of P: 1) PTL precautions reviewed and when to call 2) RTO in 2 weeks 3) Declines 3hr due to how this made her feel last and then was positive GDM. Recommend testing 4 times a day. Declines diabetic education and nutrition counseling. Will bring BG log to next visit and then send weekly after. 4) Growth US at 32 weeks and every 4 weeks due to presumed GDM. Kristen Farr APRN.CNM documented in this encounterRegency Hospital [facility]06-27-2023 Instructions* Patient Instructions* Luan Lindquist Cma - 03/14/2023 2:03 PM EDT SEQUENTIAL SCREENINGS [facility] offers sequential screenings for women who are interested in screenings for chromosomal abnormalities and certain defects during a . The sequential screen combinesultrasound and blood tests to determine the risk of chromosomal abnormalities, including Down's Syndrome (Trisomy 21) and Trisomy 18, as well as open neural tube defects including spina bifida. Ultrasound examination is performed between 11 weeks and 13 weeks gestational age. Blood tests are drawn after the ultrasound and again later in the between 15 and 21 weeks gestational age. Please let your physician know if you are interested in this testing. It will require an appointment withour body shop technician. This is not an ultrasound performed by a physician in our office during a routine visit. SIGNS AND SYMPTOMS OF LABOR 1. Contractions every 10 minutes or more often 2. Clear, pink, or brownish fluid (water) leaking from vagina 3. Feeling that baby is pushing down, pressure 4. Low, dull backache 5. Cramps that feel like a period 6. Cramps with or without diarrhea If you notice any of the above symptoms, contact our office at [phone] and ask to speak with anurse. After hours, you can call doctors registry at [phone] OR call [facility] at [phone] ask to have the doctor education analyst paged. If you consider this an emergency, dial 9-1-1 or go to your nearest emergency department. NEED HELP? Are you dealing with a violent or abusive relationship? Are you a victim of rape or sexual assult? Call [facility] ([place]) 24 hour Crisis Hotline: 716.300.6108 or 494-857-3548. MANUAL Your Guide to a Healthy manual is now on-line. Visit [email or web address] to download your free copy documented in this encounterRegency [facility]06-14-2023 Miscellaneous Notes* Quick Notes - Christian Boyce MD - 03/01/2023 4:37 PM EDT DM-Pt doing well. Denies vaginal Bleeding, Leaking fluid, or regular Contractions. Pt reports good movement. Feels like she has more discharge, not malodors but discolors underwear and wants checked for BV. Physical Exam: Gen: female in no apparent distress Abd: soft, Gravid. Non tender to palpation. See flow sheet A/P: @ 28 weeks 1) continue ASA 2) Growth At 32 weeks 3) RTO 2 wks 4) BV swab today Christian Urias MD documented in this encounterRegency [facility]06-14-2023 History of Present illness Narrative* Darlene Maxwell Ma - 03/01/2023 2:39 PM EDT Patient identified by name and date of . Tiffanie Cortez presents today for a vaccination of Tdap. Patient denies an allergy to latex: yes Patient denies a severe (life-threatening) allergy to a previous dose of Tdap, DTP, DTaP, DT or Td vaccine. Yes Patient denies history of epilepsy or neurological problems: Yes Patient is afebrile and denies being moderately or severely ill: Yes Patient denies history of Guillain-Trafford Syndrome (a severe paralytic illness): Yes Tdap Adacel injection was given without incident. See immunizations for details of immunizations administered today. VIS sheet provided: Yes Provider Austen was present in office at time of injection. Darlene Maxwell Ma documented in this encounterRegency Hospital [facility]06-14-2023 Instructions* Patient Instructions* Darlene Maxwell Ma - 03/01/2023 2:32 PM EDT SEQUENTIAL SCREENINGS [facility] offers sequential screenings for women who are interested in screenings for chromosomal abnormalities and certain defects during a . The sequential screen combinesultrasound and blood tests to determine the risk of chromosomal abnormalities, including Down's Syndrome (Trisomy 21) and Trisomy 18, as well as open neural tube defects including spina bifida. Ultrasound examination is performed between 11 weeks and 13 weeks gestational age. Blood tests are drawn after the ultrasound and again later in the between 15 and 21 weeks gestational age. Please let your physician know if you are interested in this testing. It will require an appointment withour body shop technician. This is not an ultrasound performed by a physician in our office during a routine visit. SIGNS AND SYMPTOMS OF LABOR 1. Contractions every 10 minutes or more often 2. Clear, pink, or brownish fluid (water) leaking from vagina 3. Feeling that baby is pushing down, pressure 4. Low, dull backache 5. Cramps that feel like a period 6. Cramps with or without diarrhea If you notice any of the above symptoms, contact our office at [phone] and ask to speak with anurse. After hours, you can call doctors registry at [phone] OR call [facility] at [phone] ask to have the doctor education analyst paged. If you consider this an emergency, dial 9-6-3 or go to your nearest emergency department. NEED HELP? Are you dealing with a violent or abusive relationship? Are you a victim of rape or sexual assult? Call [facility] ([place]) 24 hour Crisis Hotline: 442.956.4112 or 164-133-1302. MANUAL Your Guide to a Healthy manual is now on-line. Visit [email or web address] to download your free copy documented in this encounterRegency [facility]04-19-2023 Miscellaneous Notes* Quick Notes - Christian Boyce MD - 01/04/2023 3:50 PM EDT DM-Pt doing well. Denies vaginal Bleeding, Leaking fluid, or regular Contractions. Pt reports good movement Physical Exam: Gen: female in no apparent distress Abd: soft, Gravid. Non tender to palpation. See flow sheet A/P: @ 20 weeks 1) still with KELLY but not as severe 2) Anatomy us pending today 3) RTO 4 wks 4) continue ASA- not taking when takes brian Urias MD documented in this encounterRegency Hospital [facility]04-19-2023 Instructions* Patient Instructions* Darlene Maxwell Ma - 01/04/2023 2:24 PM EDT SEQUENTIAL SCREENINGS [facility] offers sequential screenings for women who are interested in screenings for chromosomal abnormalities and certain defects during a . The sequential screen combinesultrasound and blood tests to determine the risk of chromosomal abnormalities, including Down's Syndrome (Trisomy 21) and Trisomy 18, as well as open neural tube defects including spina bifida. Ultrasound examination is performed between 11 weeks and 13 weeks gestational age. Blood tests are drawn after the ultrasound and again later in the between 15 and 21 weeks gestational age. Please let your physician know if you are interested in this testing. It will require an appointment withour body shop technician. This is not an ultrasound performed by a physician in our office during a routine visit. SIGNS AND SYMPTOMS OF LABOR 1. Contractions every 10 minutes or more often 2. Clear, pink, or brownish fluid (water) leaking from vagina 3. Feeling that baby is pushing down, pressure 4. Low, dull backache 5. Cramps that feel like a period 6. Cramps with or without diarrhea If you notice any of the above symptoms, contact our office at [phone] and ask to speak with anurse. After hours, you can call doctors registry at [phone] OR call [facility] at [phone] ask to have the doctor education analyst paged. If you consider this an emergency, dial 9-1-1 or go to your nearest emergency department. NEED HELP? Are you dealing with a violent or abusive relationship? Are you a victim of rape or sexual assult? Call [facility] ([place]) 24 hour Crisis Hotline: 306.967.5177 or 294-115-8827. MANUAL Your Guide to a Healthy manual is now on-line. Visit [email or web address] to download your free copy documented in this encounterRegency [facility]03-23-2023 Miscellaneous Notes* Quick Notes - Christian Boyce MD - 12/08/2022 2:55 PM EDT DM-Pt doing well. Denies vaginal Bleeding, Leaking fluid, or regular Contractions. Pt reports good movement Physical Exam: Gen: female in no apparent distress Abd: soft, Gravid. Non tender to palpation. See flow sheet A/P: @ 16.1 weeks 1) headaches- reviewed tylenol, Caffeine, Excedrin, - will add Reglan if no relief 2) anatomy us ordered 3) RTO 4 wks 4) second trimester screening today Christian Urias MD documented in this encounterRegency Hospital [facility]03-23-2023 Instructions* Patient Instructions* Master Alfaro MA - 12/08/2022 2:47 PM EDT SEQUENTIAL SCREENINGS [facility] offers sequential screenings for women who are interested in screenings for chromosomal abnormalities and certain defects during a . The sequential screen combinesultrasound and blood tests to determine the risk of chromosomal abnormalities, including Down's Syndrome (Trisomy 21) and Trisomy 18, as well as open neural tube defects including spina bifida. Ultrasound examination is performed between 11 weeks and 13 weeks gestational age. Blood tests are drawn after the ultrasound and again later in the between 15 and 21 weeks gestational age. Please let your physician know if you are interested in this testing. It will require an appointment withour body shop technician. This is not an ultrasound performed by a physician in our office during a routine visit. SIGNS AND SYMPTOMS OF LABOR 1. Contractions every 10 minutes or more often 2. Clear, pink, or brownish fluid (water) leaking from vagina 3. Feeling that baby is pushing down, pressure 4. Low, dull backache 5. Cramps that feel like a period 6. Cramps with or without diarrhea If you notice any of the above symptoms, contact our office at [phone] and ask to speak with anurse. After hours, you can call doctors registry at [phone] OR call [facility] at [phone] ask to have the doctor education analyst paged. If you consider this an emergency, dial 9-1-8 or go to your nearest emergency department. NEED HELP? Are you dealing with a violent or abusive relationship? Are you a victim of rape or sexual assult? Call [facility] ([place]) 24 hour Crisis Hotline: 246.702.9704 or 863-042-9249. MANUAL Your Guide to a Healthy manual is now on-line. Visit [email or web address] to download your free copy documented in this encounterRegency Hospital [facility]03-01-2023 Miscellaneous Notes* Telephone Encounter - Rachel Moore MA - 11/16/2022 9:37 AM EST Patient called and left message for patient on identified voicemail. Tiffanie Cortez was informed of negative Sequential screen first trimester. Tiffanie Cortez was informed of her risk assessment for Trisomy 21 and 18. Based on these results Dr. Huynh s recommendation is for patient to follow-up with Sequential second trimester screening (12/04/22-12/18/22) and level II anatomy scan after 1 8wks. Left message for patient to call with questions. Rachel Moore MA documented in this encounterRegency Hospital [facility]02-24-2023 History of Present illness Narrative* Mamie Baxter PA-C - 11/11/2022 11:35 AM EST Chief Complaint Patient presents with: Follow Up: Swollen gland in mouth, pain radiates down into jaw.Cough & vomiting improving. HPI Tiffanie Cortez is a 32 year old female who presents here today for Above Complaints.. Patient states that she has been having sore throat and pain that radiates into jaw. Was seen by express [facility] on Monday. Her cough and other symptoms have improved since then, but the pain has continued. Pain with swallowing. Does have nausea/vomiting but this is partly from her as well. Past medical history, appointments, medications, allergies reviewed. Previous Medical History PAST MEDICAL HISTORY Diagnosis Date Abnormal glandular Papanicolaou smear of cervix 2000 Bilateral ovarian cysts depression Gestational diabetes mellitus, class A1 03/15/2021 History of drug use meth and heroine. Denies use x 1 year 09/2020 History of hepatitis C 11/26/2020 Migraine without aura and without status migrainosus, not intractable Previous Surgical History PAST SURGICAL HISTORY Procedure Laterality Date CRYO CAUTERY CERVIX 2000 Family History FAMILY HISTORY Problem Relation Age of Onset Hypertension Mother Hypertension Father No Known Problems Brother No Known Problems Maternal Grandmother Heart Attack Maternal Grandfather No Known Problems Paternal Grandmother Heart Attack Paternal Grandfather No Known Problems Daughter Patient Allergies ALLERGIES No Known Allergies Current Medications Current Outpatient Medications on File Prior to Visit Medication Sig MAGNESIUM ORAL Take by mouth. omega-3/dha/epa/dpa/fish oil (OMEGA-3 2100 ORAL) Take by mouth. acetaminophen 325 mg cap Take by mouth as directed. Uttxkbls-Nu-Eod-Fe-FA ( VITAMIN) tab Take 1 tablet by mouth. No current facility-administered medications on file prior to visit. Social History Social History Tobacco Use Smoking status: Former Years: 8.00 Types: Cigarettes Quit date: 09/28/2020 Years since quittin.1 Smokeless tobacco: Never Tobacco comments: Pt uses nicotine vape Vaping Use Vaping Use: current everyday user Substances: Nicotine (2%) Substance Use Topics Alcohol use: Not Currently Drug use: Not Currently Types: Amphetamines, Heroin Review of Symptoms REVIEW OF SYSTEMS See hpi EXAM: BP 114/82 Pulse 99 Temp 36.4 C (97.5 F) (Tympanic) Resp 18 Wt 102.5 kg (226 lb) LMP 08/17/2022 (Exact Date) SpO2 98% BMI 34.36 kg/m General Appearance: Well appearing, alert, in no acute distress, well-hydrated, well nourished.. Head: Normocephalic, no masses, lesions, tenderness or abnormalities. Ears: External ears normal, canals clear. Nose/Sinuses: Nares normal, septum midline, mucosa normal, no drainage or sinus tenderness. Oropharynx: erythema noted. +tonsillar hypertrophy. No exudate. Neck: +submandibular tenderness on R. Lungs: Lungs clear to auscultation. No wheezing, rhonchi, rales.. Heart: RRR without murmur, gallop, or rubs. No ectopy. Health Maintenance List HEPATITIS B(1 of 3 - 3-dose series) Never done COVID-19 VACCINE(1) Never done INFLUENZA(1) Never done DEPRESSION ASSESSMENT Never done PAP TESTING due on 09/16/2025 HPV TESTING due on 09/16/2025 DTAP,TDAP,TD(2 - Td or Tdap) due on 03/16/2031 HEPATITIS C SCREENING Completed HIV SCREENING Completed Data reviewed ASSESSMENT/PLAN: 1. Pharyngitis, unspecified etiology - ICD9: 462, ICD10: J02.9 Start duricef. If not improving, will test for mono. Patient to update me next week. Mamie Baxter PA-C documented in this encounterRegency Hospital [facility]02-23-2023 Miscellaneous Notes* Quick Notes - Rukhsana Mckinnon MD - 11/10/2022 2:37 PM EST KJ - VB No. LOF No. CTXS No. Movement: present. Other c/o: No. Medication list reviewed. Physical Exam See Flow Sheet Gen: no accute distress, well appearing Abd: soft, nontender, gravid A/P 12w1d Estimated Date of Delivery: 05/24/23 NT with sequential today Start aspirin H/o Hepatitis C Vaping - encouraged cessation Rukhsana Mckinnon MD documented in this encounterRegency Hospital [facility]02-23-2023 History of Present illness Narrative* Eleanor Vidal RN - 11/10/2022 2:28 PM EST Patient here for First Trimester Screening. See ultrasound report for details. Options for genetic screening and diagnosis discussed with the patient. Patient opts for first trimester screening and the sequential screening protocol. Limitations of screening tests discussed withthe patient. Rukhsana Mckinnon MD documented in this encounterRegency Hospital [facility]02-23-2023 Instructions* Patient Instructions* Ally Ca Ma - 11/10/2022 2:28 PM EST SEQUENTIAL TESTING PROCESS Sequential Screen First Trimester Today you are currently: 12w1d weeks 11/10/2022: Ultrasound and blood test. Sequential Screen Second Trimester (16-17 Weeks Gestation) When you are called with your results, the nurse will give the optimal draw dates for the Sequential screen second trimester. Blood testing can be done at any [facility] lab. Please report to the any fisher [employer] seine office manager front office for the Sequential Part 2 requisition and order before reporting to the lab. Your weight will need to be documented for testing. Please note: -No appointment is need for your second blood draw. -Office hours are 8 am to 4:30 pm. -Please have testing done prior to 12 noon on Monday's -Once the sequential testing is started, in the first trimester the only follow- up will be for the sequential screen second trimester. Please don't have a Quad screen ordered by another provider. If you or your Provider have any questions please call your maternal medicine office, for east side please call [phone] or for the West side call [phone] and ask for the the nurse. Thank you. SEQUENTIAL SCREENINGS The [facility] offers sequential screenings for women who are interested in screenings for chromosomal abnormalities and certain defects during a . The sequential screen combinesultrasound and blood tests to determine the risk of chromosomal abnormalities, including Down's Syndrome (Trisomy 21) and Trisomy 18, as well as open neural tube defects including spina bifida. Ultrasound examination is performed between 11 weeks and 13 weeks gestational age. Blood tests are drawn after the ultrasound and again later in the between 15 and 21 weeks gestational age. Please let your physician know if you are interested in this testing. It will require an appointment withour body shop technician. This is not an ultrasound performed by a physician in our office during a routine visit. SIGNS AND SYMPTOMS OF LABOR 1. Contractions every 10 minutes or more often 2. Clear, pink, or brownish fluid (water) leaking from vagina 3. Feeling that baby is pushing down, pressure 4. Low, dull backache 5. Cramps that feel like a period 6. Cramps with or without diarrhea If you notice any of the above symptoms, contact our office at [phone] and ask to speak with anurse. After hours, you can call doctors registry at [phone] OR call [facility] at [phone] ask to have the doctor education analyst paged. If you consider this an emergency, dial 9-1- or go to your nearest emergency department. NEED HELP? Are you dealing with a violent or abusive relationship? Are you a victim of rape or sexual assult? Call [facility] ([place]) 24 hour Crisis Hotline: 780.686.9446 or 152-197-4018. MANUAL Your Guide to a Healthy manual is now on-line. Visit [email or web address] to download your free copy documented in this encounterRegency Hospital [facility]02-21-2023 History of Present illness Narrative* Justin Shaw APRN.ELEVATOR SERVICE MECHANIC - 11/08/2022 11:43 AM EST Subjective HPI HPI Tiffanie Cortez is a 32 year old female who presents today for CC of cough, congestion for 1week, st for few days. Has tried otc medication for relief. Symptoms are worsened by nothing. Risk factors sick exposures at home. 6 weeks . vapes. .Patient presents with: Nasal Congestion: drainage, ear pain, right gland pain, sore throat x 1 week PAST MEDICAL HISTORY Diagnosis Date Abnormal glandular Papanicolaou smear of cervix 2000 Bilateral ovarian cysts depression Gestational diabetes mellitus, class A1 03/15/2021 History of drug use meth and heroine. Denies use x 1 year 09/2020 History of hepatitis C 11/26/2020 Migraine without aura and without status migrainosus, not intractable PAST SURGICAL HISTORY Procedure Laterality Date CRYO CAUTERY CERVIX 2000 ALLERGIES Patient has no known allergies. MEDICATIONS propranolol (INDERAL) 20 mg tablet Take 10 mg (1/2 tab) to 40 mg (2 tab) by mouth up to twice dailyas needed for anxiety. Heart rate must be above 60 to take. MAGNESIUM ORAL Take by mouth. omega-3/dha/epa/dpa/fish oil (OMEGA-3 2100 ORAL) Take by mouth. acetaminophen 325 mg cap Take by mouth as directed. Myvunaeh-Ju-Rws-Fe-FA ( VITAMIN) tab Take 1 tablet by mouth. sertraline (ZOLOFT) 50 mg tablet TAKE 1/2 (ONE-HALF) OF A TABLET BY MOUTH DAILY FOR 7 DAYS THEN INCREASE TO ONE TABLET DAILY (Patient not taking: Reported on 11/08/2022) FAMILY HISTORY Problem Relation Age of Onset Hypertension Mother Hypertension Father No Known Problems Brother No Known Problems Maternal Grandmother Heart Attack Maternal Grandfather No Known Problems Paternal Grandmother Heart Attack Paternal Grandfather No Known Problems Daughter Social History Tobacco Use Smoking status: Former Years: 8.00 Types: Cigarettes Quit date: 09/28/2020 Years since quittin.1 Smokeless tobacco: Never Vaping Use Vaping Use: current everyday user Substances: Nicotine (2%) Substance Use Topics Alcohol use: Not Currently Drug use: Not Currently Types: Amphetamines, Heroin Review of Systems Constitutional: Negative for fever. HENT: Positive for congestion and sore throat. Negative for ear pain and nosebleeds. Respiratory: Positive for cough. Negative for shortness of breath and wheezing. Gastrointestinal: Positive for vomiting. Negative for abdominal pain. Musculoskeletal: Negative for neck pain. Objective Blood pressure 110/72, pulse 116, temperature 36.3 C (97.3 F), resp. rate 16, weight 103.4 kg (228 lb), last menstrual period 08/17/2022, SpO2 98 %, not currently . Physical Exam Constitutional: General: She is not in acute distress. Appearance: She is not toxic-appearing or diaphoretic. HENT: Head: Normocephalic and atraumatic. Right Ear: Hearing, tympanic membrane, ear canal and external ear normal. Left Ear: Hearing, tympanic membrane, ear canal and external ear normal. Nose: Nose normal. Mouth/Throat: Pharynx: Uvula midline. Posterior oropharyngeal erythema present. No pharyngeal swelling, oropharyngeal exudate or uvula swelling. Eyes: General: Lids are normal. No scleral icterus. Right eye: No discharge. Left eye: No discharge. Conjunctiva/sclera: Conjunctivae normal. Pupils: Pupils are equal, round, and reactive to light. Neck: Trachea: Trachea normal. Cardiovascular: Rate and Rhythm: Normal rate and regular rhythm. Heart sounds: Normal heart sounds. Pulmonary: Effort: Pulmonary effort is normal. Breath sounds: Normal breath sounds. Abdominal: General: Bowel sounds are normal. Palpations: Abdomen is soft. There is no hepatomegaly or splenomegaly. Tenderness: There is no abdominal tenderness. Musculoskeletal: Cervical back: Normal range of motion and neck supple. Lymphadenopathy: Cervical: No cervical adenopathy. Right cervical: No superficial cervical adenopathy. Left cervical: No superficial cervical adenopathy. Skin: Findings: No rash. Neurological: Mental Status: She is alert and oriented to person, place, and time. ASSESSMENT/PLAN: 1. URI, acute - ICD9: 465.9, ICD10: J06.9 (primary diagnosis) - Discussed viral etiology and rationale for treatment. - Symptomatic treatment with prn analgesia - Supportive care with fluids and rest - Follow up in 3-5 days if symptoms persist or sooner if worsening of symptoms -will schedule recheck with pcp. Urgent f/u for worsening s/s. - COVID WITH FLUA+B, ROUTINE 2. Sore throat - ICD9: 462, ICD10: J02.9 Negative, viral - ALERE STREP A TEST (AG) - COVID WITH FLUA+B, ROUTINE Justin Shaw APRN.MONICA documented in this encounterRegency Hospital [facility]02-08-2023 Miscellaneous Notes* Telephone Encounter - Earl Cummings RN - 10/26/2022 2:01 PM EST Patient notified. Earl Cummings RN * Telephone Encounter - Qi Plummer MD - 10/26/2022 1:29 PM EST Some blood mixed in w/ emesis is common. If it is a little bit of bright red blood mixed in with the emesis, it is likely just from a tear and a small blood vessel. If she is vomiting sammy blood that is different. I do not think she needs to go to the emergency room at this point. Would recommend routine nausea vomiting of symptomatic treatments/guidelines. If these are unsatisfactory and has persistent nausea and vomiting, should be seen to discuss treatment. Qi Plummer MD * Telephone Encounter - Eleanor Vidal RN - 10/26/2022 11:56 AM EST 10w0d Patient states she vomited twice today and there was bright red blood in her emesis with x1 blood clot. Took Tums at 6 AM. Ate spicy noodles later this morning. No red sauce in the noodles. Denies HXof stomach ulcers. She has been having more frequent heartburn and eating more spicy foods. Discussed limiting foods that cause her heartburn. Tums sufficiently takes care of her heartburn. Patient prefers not to go to ER if she doesn't have to. Eleanor Vidal RN documented in this encounterRegency Hospital [facility]02-03-2023 Miscellaneous Notes* Telephone Encounter - Lovely Beauchamp LPN - 10/21/2022 1:53 PM EST Pt returned call and stated that she is on her way to [facility] to be seen in the infusion center. Lovely Beauchamp LPN * Telephone Encounter - Eleanor Vidal RN - 10/21/2022 1:18 PM EST Spoke with [facility] Outpatient Infusion. They are able to see patient today if she can come in now. Spoke with patient. She will call and let us know. Needs to have her come home to watch the baby. Order form to SW to complete. Eleanor Vidal RN * Telephone Encounter - Vincent Thomas MD - 10/21/2022 1:01 PM EST If she is having a severe migraine and has tried tylenol, hydration, and caffeine already recommendIV reglan and benadryl for relief. Is this something she can do as outpatient today or will she need to go to ER? * Telephone Encounter - Lovely Beauchamp LPN - 10/21/2022 12:03 PM EST 9w2d Pt stated that at her last appt. That if she needed help with her migraine h/a. Pt is currently taking magnesium and fish oil and she is not able to obtain relief. She is reporting that she has had 4h/a this week that she rates a 7/10, ranging from aching to sharp, no visual disturbances. Pt has also been using Tylenol and unable to obtain relief. Adding Caffeine is ineffective. Pt would like something called into her pharmacy to help with this. Please advise. Lovely Beauchamp LPN documented in this encounterRegency Hospital [facility]01-25-2023 Miscellaneous Notes* Telephone Encounter - Kristen Thomas RN - 10/12/2022 9:03 AM EST Initial risk assessment form submitted October 12, 2022 @ 9:03 AM. Kristen Thomas RN documented in this encounterRegency Hospital [facility]01-23-2023 History of Present illness Narrative* Christian Boyce MD - 10/10/2022 3:10 PM EST OB point of care ultrasound was performed. See imaging tab for details. Christian Urias MD documented in this encounterRegency Hospital [facility]01-23-2023 Miscellaneous Notes* Quick Notes - Christian Boyce MD - 10/10/2022 2:54 PM EST DM- New ob. NT ordered. ASA reviewed. RTO 4 wks. Christian Urias MD documented in this encounterRegency Hospital [facility]01-23-2023 Instructions* Patient Instructions* Darlene Maxwell Ma - 10/10/2022 2:06 PM EST Please select the following link to access the [facility] Your Guide to a Healthy . [email or web address] documented in this encounterRegency Hospital [facility] East01-23-2023 History of Present illness Narrative* Christian Boyce MD - 10/10/2022 2:05 PM EST Images from the original note were not included. INITIAL OB ASSESSMENT OB Provider: Christian Boyce MD HPI: Tiffanie Cortez is a 32 year old female here to establish Obstetrical Care. Patient's last menstrual period was 08/17/2022 (exact date). from OB Dating Form. Cycle length: 28 days Complaints: nausea and vomiting was planned. OB History T1 L1 SAB0 IAB0 Ectopic0 Multiple0 Live Births1 Prior : never History of 4th degree laceration: No Patient's Risk Screening for delivery: History of abnormal pap: No Prior treatment for cervical dysplasia: none. 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 Denies use x 1 year 09/2020 History of hepatitis C 11/26/2020 Migraine without aura and without status migrainosus, not intractable PAST SURGICAL HISTORY Procedure Laterality Date CRYO CAUTERY CERVIX 2000 Current Outpatient Medications on File Prior to Visit Medication Sig MAGNESIUM ORAL Take by mouth. omega-3/dha/epa/dpa/fish oil (OMEGA-3 2100 ORAL) Take by mouth. riboflavin, vitamin B2, (VITAMIN B-2 ORAL) Take by mouth. (Patient not taking: Reported on 09/16/2022) cholecalciferol (VITAMIN D3) 1,000 unit tab tablet Take 1,000 Units by mouth once daily. (Patient not taking: Reported on 09/16/2022) acetaminophen 325 mg cap Take by mouth as directed. hydrocortisone (ANUSOL-HC) 2.5 % rectal cream by RECTAL route twice daily. (Patient not taking: Reported on 09/16/2022) Auktwymb-Bf-Sdd-Fe-FA ( VITAMIN) tab Take 1 tablet by mouth. No current facility-administered medications on file prior to visit. Review of Systems: GENERAL: Negative for: Fever or Chills HEENT: Negative for: Headache, Impaired Vision, Ringing in Ears, Nosebleeds NECK: Negative for: Swelling, Pain, Stiffness RESPIRATORY: Negative for: Cough, Shortness of breath, Wheezing GASTROINTESTINAL: Negative for: Heartburn, Constipation, Diarrhea, Blood in stool, Vomiting MUSCULOSKELETAL: Negative for: Muscle or joint pain, stiffness, Joint swelling NEUROLOGIC/PSYCHIATRIC: Negative for: Weakness, Paralysis, Numbness, Tingling, Tremor, Anxiety, Depression, Memory loss SKIN: Negative for: Rash, Itching GENITOURINARY: Negative for: vaginal itching, vaginal discharge, hematuria or dysuria PHYSICAL EXAM: BP 114/70 Wt 231 lb (104.8kg) LMP 08/17/2022 GENERAL: pleasant female in no apparent distress DERMATOLOGY: Normal, without lesions, non-icteric, and non-hirsute NECK: Supple, full range of motion, no adenopathy, and thyroid normal BREAST: soft, non-tender, symmetric, no dominant mass, normal nipple-areolar complex, no lymphadenopathy, and no nipple discharge ABDOMEN: soft, non-tender, and no masses NEURO: alert and oriented x3,exam grossly non-focal PELVIS: External genitalia normal without lesions. Perineal body intact. No vaginal or cervical lesions. Cervix closed. Uterus 7 week size. No adnexal masses or tenderness. Clinical Pelvimetry: Pelvimetry clinically assessed as adequate Limited OB ultrasound exam: single intrauterine and positive cardiac activity OB Risk Screening: Completed, no positive findings documented. SBIRT Tiffanie Cortez was given the 4P's screening tool. Tiffanie answered as follows: OB Opioid Screening - Last Recorded (since 01/13/2022) Did any of your parents have a problem with alcohol or other drug use? Yes father-ETOH Does your partner have a problem with alcohol or other drug use? No In the past, have you had difficulties in your life because of alcohol or other drugs, including prescription medications? Yes In the past month have you drunk any alcohol or used other drugs? No Are you taking medication for pain during the either prescribed or not? No Based on the screen and further questions, she is considered at Low risk due to:Low level of use stopped prior to or immediately upon known . Positive reinforcement of current behavior. Plan to rescreen early third trimester. Christian Urias MD ASSESSMENT: 32 year old at 7.5 wks gestational age PLAN: 1) Patient oriented to practice. Discussed nutrition, folic acid supplementation, dietary guidelines, exercise, smoking, alcohol, caffeine, and drug use. Discussed routine OB labs including STD/HIV. Discussed aneuploidy screening options including serum screening and nuchal translucency. 2) ASA reviewed 3) h/o hep c- LFTs ordered Follow up in 4 weeks or sooner prn. Christian Urias MD documented in this encounterReg[facility]23 Miscellaneous Notes* Telephone Encounter - Shelby Tabor Cma - 10/03/2022 9:04 AM EST [employer] message sent to patient Shelby Tabor Cma * Telephone Encounter - Rosette Thomas APRN.MONICA - 10/03/2022 8:15 AM EST Please let patient know that her lab testing was normal. documented in this encounterRegency [facility]01-13-2023 Instructions* Patient Instructions* Rosette Thomas APRN.CNP - 09/30/2022 2:52 PM EST Complete labs Follow up with OBGYN as scheduled documented in this encounterRegency [facility]01-13-2023 History of Present illness Narrative* Rosette Thomas APRN.CNP - 09/30/2022 2:25 PM EST Chief Complaint Patient presents with: Follow Up: Jolting pain arms legs, hands and feet X 2 weeks HPI Tiffanie Cortez is a 32 year old female who presents here today for Above Complaints.. Patient presents for new onset jolt/vibration in her hands, face and feet. Patient states this started approximately 2 weeks ago. Patient reports that she is approximately 6 weeks . Patient states that she had gestational diabetes with her . Patient also reports that she has tingling in her hands while crafting with her forearms against the table. Patient states that jolting sensation is not necessarily painful but more annoying. Sensation is worse in her legs than feet. Patient reports that it happens more frequently when going from sitting to standing and standing tositting. 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 Past medical history, appointments, medications, allergies reviewed. Previous Medical History PAST MEDICAL HISTORY Diagnosis Date Abnormal glandular Papanicolaou smear of cervix 2000 Bilateral ovarian cysts depression Gestational diabetes mellitus, class A1 03/15/2021 History of drug use meth and heroine. Denies use x 1 year 09/2020 History of hepatitis C 11/26/2020 Migraine without aura and without status migrainosus, not intractable Previous Surgical History PAST SURGICAL HISTORY Procedure Laterality Date CRYO CAUTERY CERVIX 2000 Family History FAMILY HISTORY Problem Relation Age of Onset Hypertension Mother Hypertension Father No Known Problems Brother No Known Problems Maternal Grandmother Heart Attack Maternal Grandfather No Known Problems Paternal Grandmother Heart Attack Paternal Grandfather No Known Problems Daughter Patient Allergies ALLERGIES No Known Allergies Current Medications Current Outpatient Medications on File Prior to Visit Medication Sig MAGNESIUM ORAL Take by mouth. omega-3/dha/epa/dpa/fish oil (OMEGA-3 2100 ORAL) Take by mouth. acetaminophen 325 mg cap Take by mouth as directed. Izsiljmi-Yo-Fyt-Fe-FA ( VITAMIN) tab Take 1 tablet by mouth. riboflavin, vitamin B2, (VITAMIN B-2 ORAL) Take by mouth. (Patient not taking: Reported on 09/16/2022) cholecalciferol (VITAMIN D3) 1,000 unit tab tablet Take 1,000 Units by mouth once daily. (Patient not taking: Reported on 09/16/2022) hydrocortisone (ANUSOL-HC) 2.5 % rectal cream by RECTAL route twice daily. (Patient not taking: Reported on 09/16/2022) No current facility-administered medications on file prior to visit. Social History Social History Tobacco Use Smoking status: Former Years: 8.00 Types: Cigarettes Quit date: 09/28/2020 Years since quittin.0 Smokeless tobacco: Never Vaping Use Vaping Use: current everyday user Substances: Nicotine (2%) Substance Use Topics Alcohol use: Not Currently Drug use: Not Currently Types: Amphetamines, Heroin Review of Symptoms REVIEW OF SYSTEMS SEE HPI EXAM: BP 110/72 Pulse 80 Resp 14 Wt 103.9 kg (229 lb) LMP 08/17/2022 (Exact Date) BMI 34.82 kg/m General Appearance: Well appearing, alert, in no acute distress, well-hydrated, well nourished.. Extremities: No deformities, edema, skin discoloration, clubbing or cyanosis. Good capillary refill. . Health Maintenance List HEPATITIS B(1 of 3 - 3-dose series) Never done COVID-19 VACCINE(1) Never done INFLUENZA(1) Never done DEPRESSION ASSESSMENT Never done PAP TESTING due on 09/16/2025 HPV TESTING due on 09/16/2025 DTAP,TDAP,TD(2 - Td or Tdap) due on 03/16/2031 HEPATITIS C SCREENING Completed HIV SCREENING Completed ASSESSMENT/PLAN: 1. Spasms of the hands or feet - ICD9: 781.7, ICD10: R25.2 - Follow up with OB as scheduled. - TSH BLD - VITAMIN B12 BLOOD - FOLATE SERUM Rosette Thomas APRN.MONICA documented in this encounterRegency [facility]12-30-2022 Miscellaneous Notes* Quick Notes - Gin Esquivel RN - 09/16/2022 3:04 PM EST DISTANCE HEALTH VISIT This Team Access Model visit is a phone encounter. It required patient-provider interaction for themedical decision making as documented below. Tiffanie Cortez is a 31 year old female seen for PNOB. Father of the baby is involved. He is thefather of her other child.Pt has a history of anxiety/depression diagnosed in 2016 and treated by the counseling center[facility] She has been off medication for 1 week. She is considering going ba on propanolol.. Discussed increased risks of depression during and and importance of reporting the development or worsening of symptoms should they occur. Pt denies ever having any suicidal thoughts or tendencies or thoughts of hurting others. I have advised her to talk withher counselor regarding medication during . Patient has a history of gestational diabetes with her prior that was diet-controlled. We will plan on early hemoglobin A1c. Patient is currently vaping nicotine. She is trying to cut down on the amount of vaping. I have discussed the risk of vaping nicotine during and advised her to quit. I have provided her with the [facility] quit line number and also discussed [facility]'s tobacco cessation program. Patient is obese. Patient has a history of drug use in the past. Has used meth and heroin. She statesshe has not used any drugs since November 04, 2019. She did have counseling at [facility] at one time. No longer attending counseling there. Patient desires nuchal ultrasound with sequential testing.Considering genetic carrier screening testing. Contact information for the [employer] rep given to patient to check on insurance coverage.Gin Esquivel RN documented in this encounterRegency Hospital [facility]12-30-2022 History of Present illness Narrative* Gin Esquivel RN - 09/16/2022 3:03 PM EST # 1 - Date: 05/21/21, Sex: Female, Weight: 6 lb 13 oz (3.09 kg), GA: 37w4d, Delivery: Vaginal, Spontaneous, Apgar1: 9, Apgar5: 9, Living: Living, Comments: SROM, EBL 400mL, 1st degree right periurethral laceration # 2 - Date: None, Sex: None, Weight: None, GA: None, Delivery: None, Apgar1: None, Apgar5: None, Living: None, Comments: None documented in this encounterRegency Hospital [facility]08-09-2022 Instructions* Patient Instructions* Lynda Melo APRN.CNP - 04/26/2022 2:18 PM EDT Clairvee or Florajen Women probiotic Minimizing irritation of the vulva (area around the vagina) Wear white cotton underwear. Avoid synthetic fabrics and tight clothing. Sleep wearing shorts or pajama bottoms without underwear. Shower as soon as possible after exercise. Avoid clothing detergents and soaps with perfumes or dyes. Use warm (not hot) water to wash the vulva and if you use soap use a product designed for sensitive skin (like Dove or Cetaphil). Do not douche or use creams/powders in the vulvar area unless instructed by your physician. If you must douche, use only plain warm water. Make sure the vulva is dry before dressing by patting dry with a towel. Avoid vigorous rubbing withthe towel. You may want to use the blow dryer (on the cool setting only!) on the vulva. The most important way to let your body heal is by avoiding scratching. Many patients find it difficult to avoid scratching at night when they are most aware of the itchiness. You can try taking Benadryl just before bedtime. Some women find it helpful to wear cotton gloves to bed to avoid scratching at night. documented in this encounterRegency Hospital [facility]08-09-2022 History of Present illness Narrative* Lynda Melo, SAM.ELEVATOR SERVICE MECHANIC - 04/26/2022 1:44 PM EDT Crop Puller offered: Patient declines. Tiffanie Cortez is a 31 year old female who presents for problem visit vaginal odor x 1 week. HPI: Odd different vaginal odor x 1 week. Not foul or fishy. Has noticed a little more thin watery discharge but is just past ovulation. Denies vaginal itching or irritation. Is taking OTC Women's Health probiotic. No contraception, happy if occurs. Is . OB History T1 L1 SAB0 IAB0 Ectopic0 Multiple0 Live Births1 Prism Measurer History LMP: 03/27/2022 (Within Days), Having periods Age at Menarche: Age at First : Age at Menopause: Prism Measurer History Comments: Sexual Activity: Yes; Male Contraception: None PAST MEDICAL HISTORY Diagnosis Date Abnormal glandular Papanicolaou smear of cervix 2000 Bilateral ovarian cysts depression Gestational diabetes mellitus, class A1 03/15/2021 History of drug use meth and heroine. Denies use x 1 year 09/2020 History of hepatitis C 11/26/2020 Migraine without aura and without status migrainosus, not intractable PAST SURGICAL HISTORY Procedure Laterality Date CRYO CAUTERY CERVIX 2001 FAMILY HISTORY Problem Relation Age of Onset Hypertension Mother Hypertension Father No Known Problems Brother No Known Problems Maternal Grandmother Heart Attack Maternal Grandfather No Known Problems Paternal Grandmother Heart Attack Paternal Grandfather Social History Tobacco Use Smoking status: Every Day Years: 7.00 Types: Cigarettes Last attempt to quit: 09/28/2020 Years since quittin.5 Smokeless tobacco: Never Tobacco comments: Quit vaping 2020, stoped smoking 2017 Vaping Use Vaping Use: current everyday user Substances: Nicotine (2%) Substance Use Topics Alcohol use: Not Currently Drug use: Not Currently Types: Amphetamines, Heroin Current Outpatient Medications Medication Sig omega-3/dha/epa/dpa/fish oil (OMEGA-3 2100 ORAL) Take by mouth. riboflavin, vitamin B2, (VITAMIN B-2 ORAL) Take by mouth. cholecalciferol (VITAMIN D) 1,000 unit tab tablet Take 1,000 Units by mouth once daily. acetaminophen 325 mg cap Take by mouth as directed. Gyupvero-Jr-Dap-Fe-FA ( VITAMIN) tab Take 1 tablet by mouth. hydrocortisone (ANUSOL-HC) 2.5 % rectal cream by RECTAL route twice daily. No current facility-administered medications for this visit. Allergies As of Date: 04/26/2022 (No Known Allergies) Fully Assessed 04/26/2022 REVIEW OF SYSTEMS Abdomen: No bloating, early satiety, indigestion, or increased flatulence. No abdominal pain, nausea, vomiting, diarrhea, or constipation. Bladder: No dysuria, gross hematuria, urinary frequency, urinary urgency, or incontinence. Allergies and current medication updated:Yes EXAM: BP 108/74 Wt 233 lb (105.7kg) LMP 03/27/2022 GENERAL: pleasant, female in no apparent distress CHEST: Normal inspiratory effort ABDOMEN: soft, non-tender, and no masses PELVIC: external genitalia normal, normal Bartholin's glands, urethra, [place]'s glands, no vulvar lesions, no cervical lesions, good vaginal support, small amount yellowishdischarge present, normal appearing perineal body and perianal region BIMANUAL: uterus normal size, shape and consistency, no adnexal masses, and non-tender NEURO: alert and oriented x3,exam grossly non-focal ASSESSMENT/PLAN: 1. Vaginal odor - ICD9: 625.8, ICD10: N89.8 (primary diagnosis) - Vulvar hygiene instructions. - Continue Women's Health probiotic - Florajen Women or Clairvee - RepHresh - BERENICE / TRICHOMONAS AMPLIFICATION - BACTERIAL VAGINOSIS AMPLIFICATION 2. Vaginal discharge - ICD9: 623.5, ICD10: N89.8 See above - BERENICE / TRICHOMONAS AMPLIFICATION - BACTERIAL VAGINOSIS AMPLIFICATION Will notify of results. Follow- up as needed. Lynda Melo APRN.CNP Medical Decision Making: Problems: Low: Acute, uncomplicated illness or injury Data: Unique test(s) ordered: 2 Risk: Moderate: Drug management Medical Decision Making Level: 3 - Low documented in this encounterRegency Hospital [facility]05-20-2022 Miscellaneous Notes* Telephone Encounter - Priti Johns Ma - 02/04/2022 10:48 AM EDT Patient was notified Priti Johns Ma * Telephone Encounter - Mamie Baxter PA-C - 02/04/2022 10:35 AM EDT She saw me for a couple acute concerns but needs to establish still. Dr. Tovar is no longer accepting new patients. She can come to express care for urinary symptoms. Mamie Baxter PA-C * Telephone Encounter - Leila Chairez RN - 02/04/2022 9:40 AM EDT Patient calling to ask Mamie Baxter if she would order anything for her symptoms/condition. This nurse reminded patient that it appears she has not Established with a PCP yet at [facility]. She reports she has been seeing Mamie Baxter and asked if message could be sent: Patient reports yesterday she began with urinary frequency. Last night she started to experience low back pain (6 out of 10 on pain scale) and has been taking ibuprofen which has been mostly effective for her. She denies fever, burning with urination, foul odor to urine or blood in urine. She reports she took at at-home urine test this morning and it showed increased leukocytes and negative nitrates. She is asking if Mamie would advise her at PH: [phone]. Requesting Drug [place]. Thank you. documented in this encounterRegency Hospital [facility] East04-19-2022 Instructions* Patient Instructions* Rukhsana Mckinnon MD - 01/04/2022 4:28 PM EDT Minimizing irritation of the vulva (area around the vagina) Wear white cotton underwear. Avoid synthetic fabrics and tight clothing. Sleep wearing shorts or pajama bottoms without underwear. Shower as soon as possible after exercise. Avoid clothing detergents and soaps with perfumes or dyes. Use warm (not hot) water to wash the vulva and if you use soap use a product designed for sensitive skin (like Dove or Cetaphil). Do not douche or use creams/powders in the vulvar area unless instructed by your physician. If you must douche, use only plain warm water. Make sure the vulva is dry before dressing by patting dry with a towel. Avoid vigorous rubbing withthe towel. You may want to use the blow dryer (on the cool setting only!) on the vulva. The most important way to let your body heal is by avoiding scratching. Many patients find it difficult to avoid scratching at night when they are most aware of the itchiness. You can try taking Benadryl just before bedtime. Some women find it helpful to wear cotton gloves to bed to avoid scratching at night. documented in this encounterRegency Hospital [facility] East04-19-2022 History of Present illness Narrative* Rukhsana Mckinnon MD - 01/04/2022 4:12 PM EDT Tiffanie Cortez is a 31 year old female who presents for problem visit. HPI: Patient reports vaginal discharge with odor. Also she reports and external cyst that has gotten smaller. OB History T1 L1 SAB0 IAB0 Ectopic0 Multiple0 Live Births1 Prism Measurer History LMP: 11/09/2021, Recent Age at Menarche: Age at First : Age at Menopause: Prism Measurer History Comments: Sexual Activity: Yes; Male Contraception: None PAST MEDICAL HISTORY Diagnosis Date Abnormal glandular Papanicolaou smear of cervix 2000 Bilateral ovarian cysts depression Gestational diabetes mellitus, class A1 03/15/2021 History of drug use meth and heroine. Denies use x 1 year 09/2020 History of hepatitis C 11/26/2020 Migraine without aura and without status migrainosus, not intractable PAST SURGICAL HISTORY Procedure Laterality Date CRYO CAUTERY CERVIX 2001 FAMILY HISTORY Problem Relation Age of Onset Hypertension Mother Hypertension Father No Known Problems Brother No Known Problems Maternal Grandmother Heart Attack Maternal Grandfather No Known Problems Paternal Grandmother Heart Attack Paternal Grandfather Social History Tobacco Use Smoking status: Current Every Day Smoker Years: 7.00 Last attempt to quit: 09/28/2020 Years since quittin.2 Smokeless tobacco: Never Used Tobacco comment: Quit vaping 2020, stoped smoking 2017 Vaping Use Vaping Use: current everyday user Substances: Nicotine (2%) Substance Use Topics Alcohol use: Not Currently Drug use: Not Currently Types: Amphetamines, Heroin Current Outpatient Medications Medication Sig acetaminophen (TYLENOL) 325 mg cap Take by mouth as directed. MULTI-VITAMIN ORAL Take by mouth as directed. hydrocortisone (ANUSOL-HC) 2.5 % rectal cream by RECTAL route twice daily. Juljzqpn-Lv-Uxw-Fe-FA ( VITAMIN) tab Take 1 tablet by mouth. No current facility-administered medications for this visit. Allergies As of Date: 01/04/2022 (Not on File) Fully Assessed 11/19/2021 Allergies and current medication updated:Yes EXAM: LMP 11/09/2021 GENERAL: pleasant, female in no apparent distress CHEST: Normal inspiratory effort PELVIC: external genitalia normal other than 2 small (5mm or less) erythematous papules c/w resolving boils, no vulvar lesions, no cervical lesions, normal appearing perineal body and perianal region ASSESSMENT AND PLAN: 31yo female with malodorous vaginal discharge & folliculitis Vaginitis swab Folliculitis - advised on perineal & shaving hygiene. No antibiotics needed as resolved. Medical Decision Making: Problems: Low: 2+ self-limited or minor problems Data: Unique test(s) ordered: 1 Risk: Low: Low risk from testing/treatment Medical Decision Making Level: 3 - Low Rukhsana Mckinnon MD documented in this encounterRegency Hospital [facility]06-28-2021 History of Past illness Narrative* Problem Noted Date Resolved Date Gestational diabetes mellitus, class A1 03/15/2006/28/2021 Overview: 04/17/21: AC at 99%, [facility] recommends weekly NSTs. Christian Urias MD 03/15/21: 3hr GTT 1hr was 237 and fasting was borderline- recommend she be treated as GDMA1. Christian Urias MD Abnormal glucose in , antepartum 202006/28/2021 Overview: 11/26/20: failed 1hr GCT, 3hr GTT ordered. Christian Urias MD Obesity in 10/01/2020 06/28/2021 Overview: 10/01/2020atient is obese. We will plan on GCT at new OB. TKRN Patient request for diagnostic testing 04/15/2021 Overview: 10/01/2020atient desires nuchal ultrasound and genetic carrier screening testing.Gin Esquivel RN Supervision of high risk , antepartum 0 10/01/2020 06/28/2021 documented as of this encounter (statuses as of 01/05/2022) [facility] History of Past illness Narrative* Problem Noted Date Resolved Date Gestational diabetes mellitus, class A1 03/15/2006/28/2021 Overview: 04/17/21: AC at 99%, [facility] recommends weekly NSTs. Christian Urias MD 03/15/21: 3hr GTT 1hr was 237 and fasting was borderline- recommend she be treated as GDMA1. Christian Urias MD Abnormal glucose in , antepartum 202006/28/2021 Overview: 11/26/20: failed 1hr GCT, 3hr GTT ordered. Christian Urias MD Obesity in 10/01/2020 06/28/2021 Overview: 10/01/2020atient is obese. We will plan on GCT at new OB. TKRN Patient request for diagnostic testing 04/15/2021 Overview: 10/01/2020atient desires nuchal ultrasound and genetic carrier screening testing.Gin Esquivel RN Supervision of high risk , antepartum 0 10/01/2020 06/28/2021 documented as of this encounter (statuses as of 02/04/2022) [facility] History of Past illness Narrative* Problem Noted Date Resolved Date Gestational diabetes mellitus, class A1 03/15/20 21 06/28/2021 Overview: 04/17/21: AC at 99%, [facility] recommends weekly NSTs. Christian Urias MD 03/15/21: 3hr GTT 1hr was 237 and fasting was borderline- recommend she be treated as GDMA1. Christian Urias MD Abnormal glucose in , antepartum 202006/28/2021 Overview: 11/26/20: failed 1hr GCT, 3hr GTT ordered. Christian Urias MD Obesity in 10/01/2020 06/28/2021 Overview: 1Patient is obese. We will plan on GCT at new OB. TKRN Patient request for diagnostic testing 04/15/2021 Overview: 10/01/2020atient desires nuchal ultrasound and genetic carrier screening testing.Gin Esquivel RN Supervision of high risk , antepartum 0 10/01/2020 06/28/2021 documented as of this encounter (statuses as of 04/26/2022) [facility] History of Past illness Narrative* Problem Noted Date Resolved Date Gestational diabetes mellitus, class A1 03/15/20 21 06/28/2021 Overview: 04/17/21: AC at 99%, [facility] recommends weekly NSTs. Christian Urias MD 03/15/21: 3hr GTT 1hr was 237 and fasting was borderline- recommend she be treated as GDMA1. Christian Urias MD Abnormal glucose in , antepartum 202006/28/2021 Overview: 11/26/20: failed 1hr GCT, 3hr GTT ordered. Christian Urias MD Supervision of high risk , antepartum 0 10/01/2020 06/28/2021 documented as of this encounter (statuses as of 09/21/2022) [facility] History of Past illness Narrative* Problem Noted Date Resolved Date Gestational diabetes mellitus, class A1 03/15/2006/28/2021 Overview: 04/17/21: AC at 99%, [facility] recommends weekly NSTs. Christian Urias MD 03/15/21: 3hr GTT 1hr was 237 and fasting was borderline- recommend she be treated as GDMA1. Christian Urias MD Abnormal glucose in , antepartum 202006/28/2021 Overview: 11/26/20: failed 1hr GCT, 3hr GTT ordered. Christian Urias MD Supervision of high risk , antepartum 0 10/01/2020 06/28/2021 documented as of this encounter (statuses as of 09/30/2022) [facility] History of Past illness Narrative* Problem Noted Date Resolved Date Gestational diabetes mellitus, class A1 03/15/20 21 06/28/2021 Overview: 04/17/21: AC at 99%, [facility] recommends weekly NSTs. Christian Urias MD 03/15/21: 3hr GTT 1hr was 237 and fasting was borderline- recommend she be treated as GDMA1. Christian Urias MD Abnormal glucose in , antepartum 202006/28/2021 Overview: 11/26/20: failed 1hr GCT, 3hr GTT ordered. Christian Urias MD Supervision of high risk , antepartum 0 10/01/2020 06/28/2021 documented as of this encounter (statuses as of 10/03/2022) [facility] History of Past illness Narrative* Problem Noted Date Resolved Date Gestational diabetes mellitus, class A1 03/15/2006/28/2021 Overview: 04/17/21: AC at 99%, [facility] recommends weekly NSTs. Christian Urias MD 03/15/21: 3hr GTT 1hr was 237 and fasting was borderline- recommend she be treated as GDMA1. Christian Urias MD Abnormal glucose in , antepartum 202006/28/2021 Overview: 11/26/20: failed 1hr GCT, 3hr GTT ordered. Christian Urias MD Supervision of high risk , antepartum 0 10/01/2020 06/28/2021 documented as of this encounter (statuses as of 10/11/2022) [facility]06-28-2021 History of Past illness Narrative* Problem Noted Date Resolved Date Gestational diabetes mellitus, class A1 03/15/2006/28/2021 Overview: 04/17/21: AC at 99%, [facility] recommends weekly NSTs. Christian Urias MD 03/15/21: 3hr GTT 1hr was 237 and fasting was borderline- recommend she be treated as GDMA1. Christian Urias MD Abnormal glucose in , antepartum 202006/28/2021 Overview: 11/26/20: failed 1hr GCT, 3hr GTT ordered. Christian Urias MD Supervision of high risk , antepartum 0 10/01/2020 06/28/2021 documented as of this encounter (statuses as of 10/11/2022) [facility]-28-2021 History of Past illness Narrative* Problem Noted Date Resolved Date Gestational diabetes mellitus, class A1 03/15/20 21 06/28/2021 Overview: 04/17/21: AC at 99%, [facility] recommends weekly NSTs. Christian Urias MD 03/15/21: 3hr GTT 1hr was 237 and fasting was borderline- recommend she be treated as GDMA1. Christian Urias MD Abnormal glucose in , antepartum 202006/28/2021 Overview: 11/26/20: failed 1hr GCT, 3hr GTT ordered. Christian Urias MD Supervision of high risk , antepartum 0 10/01/2020 06/28/2021 documented as of this encounter (statuses as of 10/12/2022) [facility]-28[facility]2021 History of Past illness Narrative* Problem Noted Date Resolved Date Gestational diabetes mellitus, class A1 03/15/2006/28/2021 Overview: 04/17/21: AC at 99%, [facility] recommends weekly NSTs. Christian Urias MD 03/15/21: 3hr GTT 1hr was 237 and fasting was borderline- recommend she be treated as GDMA1. Christian Urias MD Abnormal glucose in , antepartum 202006/28/2021 Overview: 11/26/20: failed 1hr GCT, 3hr GTT ordered. Christian Urias MD Supervision of high risk , antepartum 0 10/01/2020 06/28/2021 documented as of this encounter (statuses as of 10/21/2022) [facility]2021 History of Past illness Narrative* Problem Noted Date Resolved Date Gestational diabetes mellitus, class A1 03/15/20 21 06/28/2021 Overview: 04/17/21: AC at 99%, [facility] recommends weekly NSTs. Christian Urias MD 03/15/21: 3hr GTT 1hr was 237 and fasting was borderline- recommend she be treated as GDMA1. Christian Urias MD Abnormal glucose in , antepartum 202006/28/2021 Overview: 11/26/20: failed 1hr GCT, 3hr GTT ordered. Christian Urias MD Supervision of high risk , antepartum 0 10/01/2020 06/28/2021 documented as of this encounter (statuses as of 10/26/2022) [facility]-28[facility]2021 History of Past illness Narrative* Problem Noted Date Resolved Date Gestational diabetes mellitus, class A1 03/15/2006/28/2021 Overview: 04/17/21: AC at 99%, [facility] recommends weekly NSTs. Christian Urias MD 03/15/21: 3hr GTT 1hr was 237 and fasting was borderline- recommend she be treated as GDMA1. Christian Urias MD Abnormal glucose in , antepartum 202006/28/2021 Overview: 11/26/20: failed 1hr GCT, 3hr GTT ordered. Christian Urias MD Supervision of high risk , antepartum 0 10/01/2020 06/28/2021 documented as of this encounter (statuses as of 11/08/2022) [facility]21 History of Past illness Narrative* Problem Noted Date Resolved Date Gestational diabetes mellitus, class A1 03/15/2006/28/2021 Overview: 04/17/21: AC at 99%, [facility] recommends weekly NSTs. Christian Urias MD 03/15/21: 3hr GTT 1hr was 237 and fasting was borderline- recommend she be treated as GDMA1. Christian Urias MD Abnormal glucose in , antepartum 202006/28/2021 Overview: 11/26/20: failed 1hr GCT, 3hr GTT ordered. Christian Urias MD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 parasitic disease History of depression Personal history of other mental disorder Vapes nicotine containing substance Anxiety during ([facility]) History of gestational diabetes Personal history of gestational diabetes documented in this encounter [facility] note* Diagnosis Supervision of high risk , antepartum (HCC)- Primary Heartburn during in third trimester ([facility]) Anxiety during ([facility]) History of hepatitis C Personal history of other infectious and parasitic disease Maternal care for tachycardia during (HCC) Abnormality in heart rate/rhythm, unspecified as to episode of care or not applicable Anemia during in third trimester (HCC) 31 weeks gestation of ([facility]) state, incidental Need for vaccination Need for prophylactic vaccination and inoculation against unspecified single disease * Assessment & Plan Note - Christian Neri MD - 02/14/2025 1:54 PM EDT Associated Problem(s): Anxiety during (HCC) Started prozac - doing well * Assessment & Plan Note - Christian Neri MD - 02/14/2025 1:54 PM EDT Associated Problem(s): History of hepatitis C Negative testing * Assessment & Plan Note - Christian Neri MD - 02/14/2025 1:54 PM EDT Associated Problem(s): Supervision of high risk , antepartum (HCC) [facility]* Diagnosis Supervision of high risk , antepartum (HCC)- Primary Heartburn during in third trimester (HCC) Anxiety during (HCC) History of hepatitis C Personal history of other infectious and parasitic disease Maternal care for tachycardia during (HCC) Abnormality in heart rate/rhythm, unspecified as to episode of care or not applicable Anemia during in third trimester (HCC) 31 weeks gestation of (HCC) state, incidental Need for vaccination Need for prophylactic vaccination and inoculation against unspecified single disease NO SHOW- Primary [facility]* Diagnosis Supervision of high risk , antepartum (HCC)- Primary Heartburn during in third trimester (HCC) Anxiety during (HCC) History of hepatitis C Personal history of other infectious and parasitic disease Maternal care for tachycardia during (HCC) Abnormality in heart rate/rhythm, unspecified as to episode of care or not applicable Anemia during in third trimester (HCC) 31 weeks gestation of (HCC) state, incidental Need for vaccination Need for prophylactic vaccination and inoculation against unspecified single disease 34 weeks gestation of (HCC)- Primary state, incidental Heartburn during in third trimester (HCC) Anxiety during (HCC) History of hepatitis C Personal history of other infectious and parasitic disease [facility] Diagnosis Supervision of high risk , antepartum (HCC)- Primary Heartburn during in third trimester (HCC) Anxiety during (HCC) History of hepatitis C Personal history of other infectious and parasitic disease Maternal care for tachycardia during (HCC) Abnormality in heart rate/rhythm, unspecified as to episode of care or not applicable Anemia during in third trimester ([facility]) 31 weeks gestation of ([facility]) state, incidental Need for vaccination Need for prophylactic vaccination and inoculation against unspecified single disease Calculus of gallbladder with cholecystitis without biliary obstruction, unspecified cholecystitis acuity- Primary documented in this encounter [facility] note* Diagnosis Supervision of high risk , antepartum (HCC)- Primary Heartburn during in third trimester ([facility]) Anxiety during ([facility]) History of hepatitis C Personal history of other infectious and parasitic disease Maternal care for tachycardia during ([facility]) Abnormality in heart rate/rhythm, unspecified as to episode of care or not applicable Anemia during in third trimester ([facility]) 31 weeks gestation of ([facility]) state, incidental Need for vaccination Need for prophylactic vaccination and inoculation against unspecified single disease Biliary colic- Primary Calculus of gallbladder without mention of cholecystitis or obstruction Symptomatic cholelithiasis Calculus of gallbladder without mention of cholecystitis or obstruction Gravid uterus at term size ([facility]) documented in this encounter [facility] note* Diagnosis Supervision of high risk , antepartum (HCC)- Primary Heartburn during in third trimester ([facility]) Anxiety during ([facility]) History of hepatitis C Personal history of other infectious and parasitic disease Maternal care for tachycardia during ([facility]) Abnormality in heart rate/rhythm, unspecified as to episode of care or not applicable Anemia during in third trimester ([facility]) 31 weeks gestation of ([facility]) state, incidental Need for vaccination Need for prophylactic vaccination and inoculation against unspecified single disease 36 weeks gestation of ([facility])- Primary state, incidental Calculus of gallbladder with cholecystitis without biliary obstruction, unspecified cholecystitis acuity Heartburn during in third trimester ([facility]) Supervision of high risk , antepartum ([facility]) documented in this encounter [facility] note* Diagnosis Supervision of high risk , antepartum (HCC)- Primary Heartburn during in third trimester ([facility]) Anxiety during (HCC) History of hepatitis C Personal history of other infectious and parasitic disease Maternal care for tachycardia during ([facility]) Abnormality in heart rate/rhythm, unspecified as to episode of care or not applicable Anemia during in third trimester ([facility]) 31 weeks gestation of (HCC) state, incidental Need for vaccination Need for prophylactic vaccination and inoculation against unspecified single disease 37 weeks gestation of (HCC)- Primary state, incidental Calculus of gallbladder with cholecystitis without biliary obstruction, unspecified cholecystitis acuity Heartburn during in third trimester (HCC) Vaginal odor Unspecified symptom associated with female genital organs Supervision of high risk , antepartum (HCC) [facility]* Diagnosis Supervision of high risk , antepartum (HCC)- Primary Heartburn during in third trimester (HCC) Anxiety during (HCC) History of hepatitis C Personal history of other infectious and parasitic disease Maternal care for tachycardia during (HCC) Abnormality in heart rate/rhythm, unspecified as to episode of care or not applicable Anemia during in third trimester (HCC) 31 weeks gestation of (HCC) state, incidental Need for vaccination Need for prophylactic vaccination and inoculation against unspecified single disease Supervision of high risk , antepartum (HCC)- Primary Calculus of gallbladder with cholecystitis without biliary obstruction, unspecified cholecystitis acuity Anemia during in third trimester (HCC) Anxiety during (HCC) History of hepatitis C Personal history of other infectious and parasitic disease 38 weeks gestation of (HCC) state, incidental * Assessment & Plan Note - Christian Neri MD - 04/02/2025 11:34 AM EDTAssociated Problem(s): Supervision of high risk , antepartum (HCC) Continue ASA Orders: URINE OB DIP B/O * Assessment & Plan Note - Christian Neri MD - 04/02/2025 11:34 AM EDTAssociated Problem(s): Anxiety during (HCC) Continue prozac Orders: URINE OB DIP B/O * Assessment & Plan Note - Christian Neri MD - 04/02/2025 11:34 AM EDTAssociated Problem(s): History of hepatitis C Orders: URINE OB DIP B/O [facility]* Diagnosis Supervision of high risk , antepartum (HCC)- Primary Heartburn during in third trimester (HCC) Anxiety during (HCC) History of hepatitis C Personal history of other infectious and parasitic disease Maternal care for tachycardia during (HCC) Abnormality in heart rate/rhythm, unspecified as to episode of care or not applicable Anemia during in third trimester (HCC) 31 weeks gestation of (HCC) state, incidental Need for vaccination Need for prophylactic vaccination and inoculation against unspecified single disease Supervision of high risk , antepartum (HCC)- Primary Calculus of gallbladder with cholecystitis without biliary obstruction, unspecified cholecystitis acuity Anemia during in third trimester (HCC) Anxiety during (HCC) History of hepatitis C Personal history of other infectious and parasitic disease 38 weeks gestation of (HCC) state, incidental Panic disorder with agoraphobia- Primary Agoraphobia with panic disorder Moderate episode of recurrent major depressive disorder (HCC) Encounter for long-term (current) use of medications Encounter for long-term (current) use of other medications Psychosocial stressors Other psychological or physical stress, not elsewhere classified Vapes nicotine containing substance 39 weeks gestation of (HCC) state, incidental [facility] Diagnostic Procedure Only (Routine) - Authorized Specialty Diagnoses / Procedures Referred By Contac t Referred To Contact [facility] Diagnoses Early stage of History of gestational diabetes in prior , currently History of hepatitis C History of intravenous drug use in remission Supervision of high risk in first trimester Obesity in Procedures NUCHAL TRANSLUCENCY WHI US NUCHAL TRANSLUCENCY 1ST GESTATION Christian Neri MD [address] [place] [address] [address] Referral ID Status Reason Start Date Expiration Date Visits Requested Visits Authorized [id number] Authorized Auto-Generat ed Referral 10/10/2022 10/10/2023 1 1 * Diagnostic Procedure Only (Routine) - Pending Review Specialty Diagnoses / Procedures Referred By Deena ren Referred To Contact [facility] Diagnoses Early stage of History of gestational diabetes in prior , currently History of hepatitis C History of intravenous drug use in remission Supervision of high risk in first trimester Obesity in Procedures OBSTETRIC ULTRASOUND WHI US PREG UTERUS AFTER 1ST TRIMEST GESTATION Christian Neri MD [address] [place] [address] [facility] [employer] [place] [address] Referral ID Status Reason Start Date Expiration Date Visits Requested Visits Authorized [id number] Pending Review Auto-Generat ed Referral 10/10/2022 10/10/2023 1 1 [facility] for referral (narrative)* Diagnostic Procedure Only (Routine) - Authorized Specialty Diagnoses / Procedures Referred By Deena ren Referred To [facility] Diagnoses 16 weeks gestation of Supervision of high risk in second trimester History of hepatitis C History of gestational diabetes in prior , currently History of intravenous drug use in remission Procedures OBSTETRIC ULTRASOUND WHI US PREG UTERUS AFTER 1ST TRIMEST GESTATION Christian Neri MD [address] [place] [address] [facility] [address] [place] [address] Referral ID Status Reason Start Date Expiration Date Visits Requested Visits Authorized [id number] Authorized Auto-Generat ed Referral 12/08/2022 12/08/2023 1 1 [facility] for referral (narrative)* Diagnostic Procedure Only (Routine) - Pending Review Specialty Diagnoses / Procedures Referred By Contac t Referred To Contact [facility] Diagnoses 29 weeks gestation of Procedures OBSTETRIC ULTRASOUND WHI US PREG UTERUS AFTER 1ST TRIMEST GESTATION Kristen Farr APRN.CNM [address] [place] [address] [facility] [address] [place] [address] Referral ID Status Reason Start Date Expiration Date Visits Requested Visits Authorized [id number] Pending Review Auto-Generat ed Referral 03/14/2023 03/13/2024 2 1 [facility] for referral (narrative)* Diagnostic Procedure Only (Routine) - Authorized Specialty Diagnoses / Procedures Referred By Contac t Referred To Contact [facility] Diagnoses 34 weeks gestation of Insulin controlled gestational diabetes mellitus (GDM) in third trimester Procedures BIOPHYSICAL PROFILE US WHI BIOPHYSICAL PROFILE NON-STRESS TESTING Christian Neri MD [address] [place] [address] [address] Referral ID Status Reason Start Date Expiration Date Visits Requested Visits Authorized [id number] Authorized Auto-Generat ed Referral 04/17/2023 04/16/2024 10 1 [facility] for referral (narrative)* Outpatient Procedure (Routine) - Pending Review Specialty Diagnoses / Procedures Referred By Contac t Referred To Contact [facility] Diagnoses Encounter for long-term (current) use of medications Procedures ECG COMPLETE ECG ROUTINE ECG W/LEAST 12 LDS W/I&R Kalyani Rios, PROCUREMENT TECHNICIAN.ELEVATOR SERVICE MECHANIC [address] [place] [address] [address] Referral ID Status Reason Start Date Expiration Date Visits Requested Visits Authorized [id number] Pending Review Auto-Generat ed Referral 03/04/2024 03/04/2025 1 1 [facility] for referral (narrative)* Diagnostic Procedure Only (Routine) - Authorized Specialty Diagnoses / Procedures Referred By Contac t Referred To Contact [facility] Diagnoses Supervision of high risk , antepartum History of gestational diabetes in prior , currently History of intravenous drug use in remission History of depression History of hepatitis C Procedures NUCHAL TRANSLUCENCY WHI US NUCHAL TRANSLUCENCY 1ST GESTATION Zena Fontenot APRN.CNP [address] [place] [address] [place] [address] Referral ID Status Reason Start Date Expiration Date Visits Requested Visits Authorized [id number] Authorized Auto-Generat ed Referral 09/20/2024 09/20/2025 1 1 * Diagnostic Procedure Only (Routine) - New Request Specialty Diagnoses / Procedures Referred By Contac t Referred To Contact [facility] Diagnoses Supervision of high risk , antepartum History of gestational diabetes in prior , currently History of intravenous drug use in remission History of depression History of hepatitis C Procedures OBSTETRIC ULTRASOUND WHI US PREG UTERUS AFTER 1ST TRIMEST 1 GESTATION Zena Fontenot APRN.CNP [address] [place] [address] [place] [address] Referral ID Status Reason Start Date Expiration Date Visits Requested Visits Authorized [id number] New Request Auto-Generat ed Referral 09/20/2024 09/20/2025 1 1 [facility] for referral (narrative)No reason for referral information [facility]WC[facility] Work Phone: Reason for visit Narrative* Diagnostic Procedure Only (Routine) - Closed Specialty Diagnoses / Procedures Referred By Contac t Referred To Contact [facility] Diagnoses Chronic pain of both hips Procedures XR HIP BILATERAL 5V PEL/AP/LAT EACH HIP RADEX HIPS BILATERAL WITH PELVIS MINIMUM 5 VIEWS Mamie Baxter PA-C [address] [place] [address] [place] [address] Referral ID Status Reason Start Date Expiration Date V isits Requested Visits Authorized [id number] Closed Auto-Generate d Referral 03/19/2024 04/18/2025 1 1 [facility] Summary Purpose Family History No Family History Records Found Relationship Condition Age at Onset Recorded Date/T matthew Unknown Family History?Hypertension Unknown March 27, 2019 5:20pm Family History?Hypertension Unknown October 08, 2020 11:25am Family History?No pe rtinent history Unknown March 27, 2019 5:20pm Relationship Condition Age at Onset Recorded Date/T matthew Unknown Family History?Hypertension Unknown March 27, 2019 6:20pm Family History?Hypertension Unknown October 08, 2020 12:25pm Family History?No pe rtinent history Unknown March 27, 2019 6:20pm Advance Directives No Advanced Directives Records FoundDocuments on File Type Date Recorded Patient Acquisition Consultant Expl anation Advance Directives and Living Will Power of Parole Hearing Officer Latest Code Status on File Code Status Date Activated Date Inactivated Comments Full Code 04/28/2019 11:43 PM Documents on File Type Date Recorded Patient Acquisition Consultant Expl anation Advance Directive(s) 01/31/2018 6:48 PM Advance Directive Response Recorded Date/ Time Living Will No May 20 021 12:19pm Power of Parole Hearing Officer No May 20, 2021 12:19pm Advance Directive Response Recorded Date/ Time Living Will No May 20 021 1:19pm Power of Parole Hearing Officer No May 20, 2021 1:19pm Advance Directive Response Recorded Date/ Time Living Will No May 04 3 4:04pm Power of Parole Hearing Officer No May 04 023 4:04pm History of Present Illness * Janice Otoole, RN - 04/29/2019 11:47 AM EDT Pt IV pump beeping, entered pt room, pt and boyfriend not in room, IV found lying in floor with bloody napkin. Pt belongings not in room, pt and boyfriend not to be found. program development manager Arlet Morgan notified and all physicians. * Arlet Bentley, PROCUREMENT TECHNICIAN - ELEVATOR SERVICE MECHANIC - 04/29/2019 9:55 AM EDT Hospitalist Progress Note 04/29/2019 9:55 AM Subjective: Admit Date: 04/28/2019 PCP: Anoop Enciso, Room#: 450/1524 Interval History: Re-admitted last night after leaving [facility]. Left arm redness improving, but still quite edematous. Antecubital firmness unchanged. Denies chest pain, sob, abdominal pain, nausea, vomiting, diarrhea, constipation, fevers, or chills. DIET GENERAL; Patient Vitals for the past 96 hrs (Last 3 readings): Weight 04/28/19 2346 170 lb (77.1 kg) 04/28/19 2155 170 lb (77.1 kg) Medications: piperacillin-tazobactam 4.5 g Intravenous Q6H nicotine 1 patch Transdermal Daily buprenorphine 8 mg Sublingual Daily sodium chloride flush 10 mL Intravenous 2 times per day enoxaparin 40 mg Subcutaneous Daily famotidine (PEPCID) injection 20 mg Intravenous BID vancomycin 1,500 mg Intravenous Q8H LABS: CBC: Recent Labs 04/28/19161704/29/19138 WBC 10.7 7.5 RBC 4.01 3.42* HGB 12.8 11.0* HCT 37.6 32.7* MCV 93.7 95.7 RDW 14.4 14.2 PLT 241 177 BMP: Recent Labs 04/28/19161704/29/19138 NA 141 137 K 3.4* 4.2 CL 105 104 CO2 27 28 BUN 9 9 CREATININE 0.51* 0.54 GLUCOSE 100 123* CALCIUM 8.8 8.7 ANIONGAP 9 5 LIVER PROFILE: Recent Labs 04/29/19138 AST 72* ALT 90* BILITOT 0.6 ALKPHOS 80 LABALBU 3.2* PROT 6.1* PT/INR: Recent Labs 04/29/19138 PROTIME 11.6 INR 1.2* Objective: Vitals: BP 102/66 Pulse 88 Temp 98.2 F (36.8 C) (Temporal) Resp 17 Ht 5' 8 (1.727 m) Comment: from sabina bentley Wt 170 lb (77.1 kg) LMP 04/15/2019 SpO2 97% BMI 25.85 kg/m Pulse Ox: SpO2 Av.8 % Min: 97 % Max: 100 % Supplemental O2: General appearance: No apparent distress HEENT: Normal cephalic, atraumatic without obvious deformity. Neck: Supple, with full range of motion. No jugular venous distention Respiratory: Normal respiratory effort. Clear to auscultation Cardiovascular: Regular rate and rhythm with normal S1/S2 Abdomen: Soft, non-tender, non-distended with normal bowel sounds Musculoskeletal: No clubbing, cyanosis or edema bilaterally Skin: Left antecubital swelling, induration - streaking noted. Firm area in AC. Multiple track gavin/scabs on arms/feet Neurologic: Neurovascularly intact without any focal sensory/motor deficits Psychiatric: Alert and oriented, thought content appropriate, normal insight. Assessment/Plan 1. Left arm cellulitis, possible abscess s/p IVDU: cultures obtained. Continue IV Zosyn/Vanco. ID/Ortho consulted. Noted superficial phlebitis 2. Reported +HCV antibodies: check Hepatitis panel. Check viral load if positive. 3. Opioid use disorder: has Recovery resources that she is working with. Was recently going to a Methadone clinic; has also taken Buprenorphine in the past. Addiction med consulted. 4. History of anxiety/depression: needs outpt f/u -am labs, replace lytes prn -increase activity -DVT prophylaxis: [x] Lovenox [] Heparin [] SCDs [x] Encourage ambulation [] Already on Anticoagulation Advance Directive: Full Code Discharge planning: TBD Division of Hospitalist Medicine Inpatient Medical Services * Madeline Jean Baptiste RCP - 04/29/2019 8:48 AM EDT 04/29/19 0848 RT Whiteboard Notes RT Whiteboard Refuses smoking cessation information documented in this encounter Assessments Diagnosis Abscess of left arm- Primary Cellulitis and abscess of upper arm and forearm Arm abscess Cellulitis and abscess of upper arm and forearm Diagnosis Abscess of left arm Cellulitis and abscess of upper arm and forearm Health Concerns Problem Noted Date OB Reminders 10/10/2022 Problem Noted Date OB Reminders 10/10/2022 Problem Noted Date OB Reminders 10/10/2022 Problem Noted Date OB Reminders 10/10/2022 Problem Noted Date OB Reminders 10/10/2022 Problem Noted Date OB Reminders 10/10/2022 Problem Noted Date OB Reminders 10/10/2022 Problem Noted Date OB Reminders 10/10/2022 Problem Noted Date OB Reminders 10/10/2022 Problem Noted Date OB Reminders 10/10/2022 Problem Noted Date OB Reminders 10/10/2022 Problem Noted Date OB Reminders 10/10/2022 Problem Noted Date Diagnosed Date OB Reminders 10/10/2022 Problem Noted Date Diagnosed Date OB Reminders 10/10/2022 Problem Noted Date Diagnosed Date OB Reminders 10/10/2022 Problem Noted Date Diagnosed Date OB Reminders 10/10/2022 Problem Noted Date Diagnosed Date OB Reminders 10/10/2022 Problem Noted Date Diagnosed Date OB Reminders 10/10/2022 Problem Noted Date Diagnosed Date OB Reminders 10/10/2022 Problem Noted Date Diagnosed Date OB Reminders 10/10/2022 Problem Noted Date Diagnosed Date OB Reminders 10/10/2022 Problem Noted Date Diagnosed Date OB Reminders 10/10/2022 Problem Noted Date Diagnosed Date OB Reminders 10/10/2022 Problem Noted Date Diagnosed Date OB Reminders 10/10/2022 Problem Noted Date Diagnosed Date OB Reminders 10/10/2022 Chief Complaint and Reason for Visit Chief Complaint REGLAN Chief Complaint R/O LABOR Chief Complaint R/O LABOR VAGINAL DELIVERY Reason for Visit Hepatitis C antibody positive in blood History of cryosurgery of cervix affecting 37 weeks gestation of Gestational diabetes requiring insulin Hepatitis C antibody positive in blood History of cryosurgery of cervix affecting History of biophysical profile Vaginal delivery Chief Complaint Admit Date ABDOMINAL PAIN March 17, 2025 9:20 pm Reason for Visit Admit Date 36 weeks gestation of February 9:20pm Abdominal pain affecting March 17, 2025 9:20pm Hepatitis C antibody positive in blood [facility] 2024 9:20pm History of intravenous drug use February 9:20pm Reason for Referral Specialty Diagnoses / Procedures Referred By Contac t Referred To Contact Diagnoses 33 weeks gestation of Procedures CONSULT TO DIABETES EDUCATION DSME/MNT MEDICAL NUTRITION ASSMT&IVNTJ INDIV EACH 15 PR MEDICAL NUTRITION ASSMT&IVNTJ INDIV EACH 15 PR MEDICAL NUTRITION ASSMT&IVNTJ INDIV EACH 15 PR MEDICAL NUTRITION ASSMT&IVNTJ INDIV EACH 15 PR Christian Neri MD [address] [place] [address] Referral ID Status Reason Start Date Expiration Date Visits Requested Visits Authorized [id number] Authorized PCP Requested Referral 04/05/2023 04/04/2024 1 1 Specialty Diagnoses / Procedures Referred By Contac t Referred To Contact Nutrition Diagnoses 33 weeks gestation of Procedures CONSULT TO NUTRITION THERAPY MEDICAL NUTRITION ASSMT&IVNTJ INDIV EACH 15 PR MEDICAL NUTRITION ASSMT&IVNTJ INDIV EACH 15 PR MEDICAL NUTRITION ASSMT&IVNTJ INDIV EACH 15 PR MEDICAL NUTRITION ASSMT&IVNTJ INDIV EACH 15 PR Christian Neri MD [address] [place] [address] Referral ID Status Reason Start Date Expiration Date Visits Requested Visits Authorized [id number] Authorized PCP Requested Referral 04/05/2023 04/04/2024 1 1 Specialty Diagnoses / Procedures Referred By Contac t Referred To Contact [facility] Diagnoses 33 weeks gestation of Procedures OBSTETRIC ULTRASOUND WHI US PREG UTERUS AFTER 1ST TRIMEST GESTATION Christian Neri MD [address] [place] [address] [facility] [address] [place] [address] Referral ID Status Reason Start Date Expiration Date Visits Requested Visits Authorized [id number] Pending Review Auto-Generat ed Referral 04/05/2023 04/04/2024 5 1 Specialty Diagnoses / Procedures Referred By Contac t Referred To Contact Diagnoses Moderate episode of recurrent major depressive disorder (HCC) Procedures CONSULT TO PSYCHIATRY OFFICE/OUTPATIENT NEW HIGH MDM 60 MINUTES Mamie Baxter PA-C [address] [place] [address] Referral ID Status Reason Start Date Expiration Date Visits Requested Visits Authorized [id number] Pending Review PCP Requested Referral 10/24/2023 10/23/2024 1 1 Specialty Diagnoses / Procedures Referred By Contac t Referred To Contact Diagnoses Keratosis pilaris Eczema, unspecified type Procedures CONSULT TO DERMATOLOGY Mamie Baxter PA-C [address] [place] [address] Referral ID Status Reason Start Date Expiration Date V isits Requested Visits Authorized [id number] Closed PCP Requested Referral 01/16/2024 01/15/2025 1 1 Specialty Diagnoses / Procedures Referred By Contac t Referred To Contact [facility] Diagnoses Chronic pain of both hips Procedures CONSULT TO PHYSICAL THERAPY PHYSICAL THERAPY EVALUATION HIGH COMPLEX 45 MINS Mamie Baxter PA-C [address] [place] [address] [facility] [address] [place] [address] Referral ID Status Reason Start Date Expiration Date Visits Requested Visits Authorized [id number] Authorized Auto-Generat ed Referral 09/18/2023 09/17/2024 30 30 Specialty Diagnoses / Procedures Referred By Contac t Referred To Contact XR IMAGING Diagnoses Chronic pain of both hips Procedures XR HIP BILATERAL 5V PEL/AP/LAT EACH HIP RADEX HIPS BILATERAL WITH PELVIS MINIMUM 5 VIEWS Mamie Baxter PA-C [address] [place] [address] [place] [address] Referral ID Status Reason Start Date Expiration Date Visits Requested Visits Authorized [id number] Pending Review Auto-Generat ed Referral 03/19/2024 04/18/2025 1 1 Specialty Diagnoses / Procedures Referred By Contac t Referred To Contact Orthopedics Diagnoses Chronic pain of both hips Hip dysplasia, acquired, right Procedures CONSULT TO ORTHOPAEDICS OFFICE/OUTPATIENT NEW HIGH MDM 60 MINUTES Mamie Baxter PA-C [address] [place] [address] Referral ID Status Reason Start Date Expiration Date Visits Requested Visits Authorized [id number] Authorized PCP Requested Referral 05/06/2024 05/06/2025 1 1 Specialty Diagnoses / Procedures Referred By Contac t Referred To Contact Rheumatology Diagnoses Chronic pain of both hips Hip dysplasia, acquired, right Procedures CONSULT TO RHEUM/IMMUN DISEASE OFFICE/OUTPATIENT NEW HIGH MDM 60 MINUTES Mamie Baxter PA-C [address] [place] [address] Referral ID Status Reason Start Date Expiration Date Visits Requested Visits Authorized [id number] Authorized PCP Requested Referral 07/16/2025 1 1 Additional Source Comments INFORMATION SOURCE (unrecogn ized section and content) DATE CREATED AUTHOR 03/07/2018 [facility] DATE CREATED AUTHOR AUTHOR'S ORGANIZ ATION 03/07/2018 [facility] DATE CREATED AUTHOR AUTHOR'S ORGANIZ ATION 03/14/2018 [facility] ([place]) DATE CREATED AUTHOR AUTHOR'S ORGANIZ ATION 06/22/2019 [facility] DATE CREATED AUTHOR AUTHOR'S ORGANIZ ATION 09/10/2024 [facility] DATE CREATED AUTHOR AUTHOR'S ORGANIZ ATION 04/01/2025 [facility] DATE CREATED AUTHOR AUTHOR'S ORGANIZ ATION 04/09/2025 [facility] Reason for Visit (unrecogniz ed section and content) Reason Comments No Show Specialty Diagnoses / Procedures Referred By Contac t Referred To Contact Diagnoses Encounter for long-term (current) use of medications Procedures PROVIDER ORDERED FOLLOW UP OFFICE/OUTPATIENT NEW HIGH MDM 60 MINUTES Kalyani Rios, PROCUREMENT TECHNICIAN.ELEVATOR SERVICE MECHANIC [address] [place] [address] Phone: tel: fax: Referral ID Status Reason Start Date Expiration Date Visits Requested Visits Authorized [id number] Authorized PCP Requested Referral 12/24/2024 12/24/2025 1 1 Reason Comments Follow Up Specialty Diagnoses / Procedures Referred By Contac t Referred To Contact Psychiatry / ADULT PSYCHIATRY Diagnoses New WH Eval Procedures VIDEO PSYC/PSYL Kalyani Yanez, PROCUREMENT TECHNICIAN.ELEVATOR SERVICE MECHANIC [address] [place] [address] Phone: tel: fax: Kalyani Rios, PROCUREMENT TECHNICIAN.ELEVATOR SERVICE MECHANIC [address] [place] [address] Phone: tel: fax: Referral ID Status Reason Start Date Expiration Date V isits Requested Visits Authorized [id number] New Request 12/05/2024 03/05/2025 1 1 Reason Comments PT Discharge Specialty Diagnoses / Procedures Referred By Contac t Referred To Contact [facility] Diagnoses Chronic pain of both hips Procedures CONSULT TO PHYSICAL THERAPY PHYSICAL THERAPY EVALUATION HIGH COMPLEX 45 MINS Mamie Baxter PA-C [address] [place] [address] Dyana Collazo PT Referral ID Status Reason Start Date Expiration Date Visits Requested Visits Authorized [id number] Authorized Auto-Generat ed Referral 09/18/2023 09/17/2024 30 30 Reason Comments Physical Therapy Reason Comments Abscess left arm; was just h ere earlier today, was supposed to get admitted, left to arrange things at home; left arm swollen. Reason Comments Arm Swelling Reason Comments Vaginal Problem ?cyst ?bv- noticed c yst for 1 week has dark color discharge for 2 days with odor Reason Comments Patient Question Reason Comments Vaginal Discharge Reason Comments Care Reason Comments Follow Up Jolting pain arms legs, hands and feet X 2 weeks Reason Comments Results Reason Comments Initial OB Visit Reason Comments Supervisor Asbestos Removal - Other Reason Comments OB Blood in Emesis Reason Comments Nasal Congestion drainage, ear pain, right gland pain, sore throat x 1 week Reason Onset Date Comments Care 11/10/2022 Reason Comments US Specialty Diagnoses / Procedures Referred By Contac t Referred To Contact [facility] Diagnoses Early stage of History of gestational diabetes in prior , currently History of hepatitis C History of intravenous drug use in remission Supervision of high risk in first trimester Obesity in Procedures NUCHAL TRANSLUCENCY WHI US NUCHAL TRANSLUCENCY 1ST GESTATION Christian Neri MD [address] [place] [address] [facility] [address] [place] [address] Referral ID Status Reason Start Date Expiration Date V isits Requested Visits Authorized [id number] Closed Auto-Generate d Referral 10/10/2022 10/10/2023 1 1 Reason Comments Follow Up Swollen gland in katia th, pain radiates down into jaw.Cough & vomiting improving. Reason Comments First Seq Results Reason Onset Date Comments Care 12/08/2022 Reason Onset Date Comments Care 01/04/2023 Reason Onset Date Comments Care 03/01/2023 Reason Onset Date Comments Care 03/14/2023 Reason Onset Date Comments Care 04/05/2023 Specialty Diagnoses / Procedures Referred By Contac t Referred To Contact [facility] Diagnoses Obesity affecting in second trimester Procedures OBSTETRIC ULTRASOUND WHI US PREG UTERUS AFTER 1ST TRIMEST 1 GESTATION Christian Neri MD [address] [place] [address] [address] Referral ID Status Reason Start Date Expiration Date V isits Requested Visits Authorized [id number] Closed Auto-Generate d Referral 02/01/2023 02/01/2024 1 1 Reason Comments Patient Education Assessment Specialty Diagnoses / Procedures Referred By Contac t Referred To Contact Nutrition Diagnoses 33 weeks gestation of Procedures CONSULT TO NUTRITION THERAPY MEDICAL NUTRITION ASSMT&IVNTJ INDIV EACH 15 PR MEDICAL NUTRITION ASSMT&IVNTJ INDIV EACH 15 PR MEDICAL NUTRITION ASSMT&IVNTJ INDIV EACH 15 PR MEDICAL NUTRITION ASSMT&IVNTJ INDIV EACH 15 PR Christian Neri MD [address] [place] [address] Referral ID Status Reason Start Date Expiration Date V isits Requested Visits Authorized [id number] Closed PCP Requested Referral 04/05/2023 04/04/2024 1 1 Reason Onset Date Comments Care 04/17/2023 Reason Onset Date Comments Care 04/24/2023 Reason Comments Patient Education Reassessment Reason Onset Date Comments Care 04/28/2023 Reason Onset Date Comments Care 05/01/2023 Reason Onset Date Comments Care 05/04/2023 Specialty Diagnoses / Procedures Referred By Contac t Referred To Contact [facility] Diagnoses 34 weeks gestation of Insulin controlled gestational diabetes mellitus (GDM) in third trimester Procedures BIOPHYSICAL PROFILE US NEW [facility] BIOPHYSICAL PROFILE NON-STRESS TESTING Christian Neri MD [address] [place] [address] [facility] [address] [place] [address] Referral ID Status Reason Start Date Expiration Date V isits Requested Visits Authorized [id number] Closed Auto-Generate d Referral 04/17/2023 04/16/2024 10 1 Reason Comments Care Reason Comments Depression Reason Comments bh consult Reason Comments New Patient Evaluation Reason Comments Follow Up Reason Onset Date Comments Refill Request 12/28/2023 Reason Comments Eczema Dx'd many years ago, getting worse recently Reason Onset Date Comments Refill Request 02/04/2024 Reason Comments Burn Reason Onset Date Comments Refill Request 02/26/2024 Reason Comments Hip Pain bilateral Reason Comments Opened In Error Reason Onset Date Comments Refill Request 05/02/2024 Reason Comments PT Eval Reason Comments Results Reason Onset Date Comments Refill Request 05/19/2024 Reason Comments New Pain Specialty Diagnoses / Procedures Referred By Contac t Referred To Contact Orthopedics Diagnoses Chronic pain of both hips Hip dysplasia, acquired, right Procedures CONSULT TO ORTHOPAEDICS OFFICE/OUTPATIENT NEW HIGH MDM 60 MINUTES Mamie Baxter PA-C [address] [place] [address] Referral ID Status Reason Start Date Expiration Date V isits Requested Visits Authorized [id number] Closed PCP Requested Referral 05/06/2024 05/06/2025 1 1 Reason Onset Date Comments Refill Request 07/01/2024 Reason Comments Medication Problem Reason Comments requesting lab work Reason Comments Rheumatology Referral Reason Comments Follow Up Panic disorder/Depre ssion Specialty Diagnoses / Procedures Referred By Deena t Referred To Contact [facility] Diagnoses Encounter for long-term (current) use of medications Procedures ECG COMPLETE ECG ROUTINE ECG W/LEAST 12 LDS W/I&R Kalyani Rios PROCUREMENT TECHNICIAN.ELEVATOR SERVICE MECHANIC [address] [place] [address] [address] Referral ID Status Reason Start Date Expiration Date V isits Requested Visits Authorized [id number] Closed Auto-Generate d Referral 03/04/2024 03/04/2025 1 1 Reason Comments intake LMP 07/08/24 Reason Comments Initial OB Visit Reason Comments PRAF Initial PRAF Reason Onset Date Comments Care 10/04/2024 Specialty Diagnoses / Procedures Referred By Deena t Referred To Contact [facility] Diagnoses Supervision of high risk , antepartum History of gestational diabetes in prior , currently History of intravenous drug use in remission History of depression History of hepatitis C Procedures NUCHAL TRANSLUCENCY WHI US NUCHAL TRANSLUCENCY 1ST GESTATION Zena Fontenot APRN.ELEVATOR SERVICE MECHANIC [address] [place] [address] [address] Referral ID Status Reason Start Date Expiration Date V isits Requested Visits Authorized [id number] Closed Auto-Generate d Referral 09/20/2024 09/20/2025 1 1 Reason Onset Date Comments Refill Request 10/16/2024 Reason Onset Date Comments Care 11/01/2024 Reason Onset Date Comments Care 11/29/2024 Specialty Diagnoses / Procedures Referred By Deena t Referred To Contact [facility] Diagnoses Supervision of high risk , antepartum History of gestational diabetes in prior , currently History of intravenous drug use in remission History of depression History of hepatitis C Procedures OBSTETRIC ULTRASOUND WHI US PREG UTERUS AFTER 1ST TRIMEST GESTATION Zena Fontenot APRN.ELEVATOR SERVICE MECHANIC [address] [place] [address] Phone: tel: fax: [facility] [address] [place] [address] Referral ID Status Reason Start Date Expiration Date V isits Requested Visits Authorized [id number] Closed Auto-Generate d Referral 09/20/2024 09/20/2025 1 1 Reason Comments Supervisor Asbestos Removal - Other PRAF Specialty Diagnoses / Procedures Referred By Deena t Referred To Contact Psychiatry / ADULT PSYCHIATRY Diagnoses New Eval Procedures VIDEO PSYC/PSYL Kalyani Yanez, PROCUREMENT TECHNICIAN.ELEVATOR SERVICE MECHANIC [address] [place] [address] Phone: tel: fax: Kalyani Rios, PROCUREMENT TECHNICIAN.ELEVATOR SERVICE MECHANIC [address] [place] [address] Phone: tel: fax: Reason Onset Date Comments Refill Request 12/16/2024 Reason Onset Date Comments Care 12/27/2024 Reason Comments Cough Cough and congestion x 3 weeks Reason Onset Date Comments Care 01/29/2025 Reason Comments Movement Reason Onset Date Comments Care 03/05/2025 Reason Comments Orders Reason Comments Consult Calculus of gallblad jourdan with cholecystitis without biliary obstruction, unspecified cholecystitis acuity Specialty Diagnoses / Procedures [facility] To Contact [facility] Surgery Diagnoses Calculus of gallbladder with cholecystitis without biliary obstruction, unspecified cholecystitis acuity Procedures CONSULT TO GENERAL SURGERY OFFICE/OUTPATIENT [facility] 60 MINUTES Rukhsana Mckinnon MD [address] [place] [address] Phone: tel: fax:[phone] Referral ID Status Reason Start Date Expiration Date V isits Requested Visits Authorized [id number] Closed PCP Requested Referral 03/18/2025 03/18/2026 1 1 Reason Onset Date Comments Care 03/20/2025 Reason Onset Date Comments Care 03/24/2025 Reason Onset Date Comments Population Health Navigation Outreach 03/31/2025 Ob/peds Reason Onset Date Comments Care 04/02/2025 Specialty Diagnoses / Procedures Referred By Deena t Referred To Contact Psychiatry / ADULT PSYCHIATRY Diagnoses rescheuled from 02/17/25 follow up Procedures VIDEO PSYC/PSYL EST Kalyani Rios, SAM.ELEVATOR SERVICE MECHANIC [address] [place] [address] Phone: tel: fax: Kalyani Rios, PROCUREMENT TECHNICIAN.ELEVATOR SERVICE MECHANIC [address] [place] [address] Phone: tel: fax: Referral ID Status Reason Start Date Expiration Date V isits Requested Visits Authorized [id number] New Request 04/07/2025 07/06/2025 1 1 Source Comments (unrecognize d section and content) In the event this informatio n is protected by the Federal Confidentiality of Alcohol and Drug Abuse Patient Records regulations: The Federal rules restrict any use of the information to criminally investigate or prosecute any alcohol or drug abuse patient.[facility] the event this information is protected by the Federal Confidentiality of Alcohol and Drug Abuse Patient Records regulations: The Federal rules restrict any use of the information to criminally investigate or prosecute any alcohol or drug abuse patient.[facility] the event this information is protected by the Federal Confidentiality of Alcohol and Drug Abuse Patient Records regulations: The Federal rules restrict any use of the information to criminally investigate or prosecute any alcohol or drug abuse patient.[facility] the event this information is protected by the Federal Confidentiality of Alcohol and Drug Abuse Patient Records regulations: The Federal rules restrict any use of the information to criminally investigate or prosecute any alcohol or drug abuse patient.[facility] the event this information is protected by the Federal Confidentiality of Alcohol and Drug Abuse Patient Records regulations: The Federal rules restrict any use of the information to criminally investigate or prosecute any alcohol or drug abuse patient.[facility] the event this information is protected by the Federal Confidentiality of Alcohol and Drug Abuse Patient Records regulations: The Federal rules restrict any use of the information to criminally investigate or prosecute any alcohol or drug abuse patient.[facility]In the event this information is protected by the Federal Confidentiality of Alcohol and Drug Abuse Patient Records regulations: The Federal rules restrict any use of the information to criminally investigate or prosecute any alcohol or drug abuse patient.[facility] EastIn the event this information is protected by the Federal Confidentiality of Alcohol and Drug Abuse Patient Records regulations: The Federal rules restrict any use of the information to criminally investigate or prosecute any alcohol or drug abuse patient.[facility] EastIn the event this information is protected by the Federal Confidentiality of Alcohol and Drug Abuse Patient Records regulations: The Federal rules restrict any use of the information to criminally investigate or prosecute any alcohol or drug abuse patient.[facility] EastIn the event this information is protected by the Federal Confidentiality of Alcohol and Drug Abuse Patient Records regulations: The Federal rules restrict any use of the information to criminally investigate or prosecute any alcohol or drug abuse patient.[facility]In the event this information is protected by the Federal Confidentiality of Alcohol and Drug Abuse Patient Records regulations: The Federal rules restrict any use of the information to criminally investigate or prosecute any alcohol or drug abuse patient.[facility] EastIn the event this information is protected by the Federal Confidentiality of Alcohol and Drug Abuse Patient Records regulations: The Federal rules restrict any use of the information to criminally investigate or prosecute any alcohol or drug abuse patient.[facility]In the event this information is protected by the Federal Confidentiality of Alcohol and Drug Abuse Patient Records regulations: The Federal rules restrict any use of the information to criminally investigate or prosecute any alcohol or drug abuse patient.[facility]In the event this information is protected by the Federal Confidentiality of Alcohol and Drug Abuse Patient Records regulations: The Federal rules restrict any use of the information to criminally investigate or prosecute any alcohol or drug abuse patient.[facility] EastIn the event this information is protected by the Federal Confidentiality of Alcohol and Drug Abuse Patient Records regulations: The Federal rules restrict any use of the information to criminally investigate or prosecute any alcohol or drug abuse patient.[facility]In the event this information is protected by the Federal Confidentiality of Alcohol and Drug Abuse Patient Records regulations: The Federal rules restrict any use of the information to criminally investigate or prosecute any alcohol or drug abuse patient.[facility] EastIn the event this information is protected by the Federal Confidentiality of Alcohol and Drug Abuse Patient Records regulations: The Federal rules restrict any use of the information to criminally investigate or prosecute any alcohol or drug abuse patient.[facility] EastIn the event this information is protected by the Federal Confidentiality of Alcohol and Drug Abuse Patient Records regulations: The Federal rules restrict any use of the information to criminally investigate or prosecute any alcohol or drug abuse patient.[facility]In the event this information is protected by the Federal Confidentiality of Alcohol and Drug Abuse Patient Records regulations: The Federal rules restrict any use of the information to criminally investigate or prosecute any alcohol or drug abuse patient.[facility]In the event this information is protected by the Federal Confidentiality of Alcohol and Drug Abuse Patient Records regulations: The Federal rules restrict any use of the information to criminally investigate or prosecute any alcohol or drug abuse patient.[facility]In the event this information is protected by the Federal Confidentiality of Alcohol and Drug Abuse Patient Records regulations: The Federal rules restrict any use of the information to criminally investigate or prosecute any alcohol or drug abuse patient.[facility]In the event this information is protected by the Federal Confidentiality of Alcohol and Drug Abuse Patient Records regulations: The Federal rules restrict any use of the information to criminally investigate or prosecute any alcohol or drug abuse patient.[facility]In the event this information is protected by the Federal Confidentiality of Alcohol and Drug Abuse Patient Records regulations: The Federal rules restrict any use of the information to criminally investigate or prosecute any alcohol or drug abuse patient.[facility]In the event this information is protected by the Federal Confidentiality of Alcohol and Drug Abuse Patient Records regulations: The Federal rules restrict any use of the information to criminally investigate or prosecute any alcohol or drug abuse patient.[facility] EastIn the event this information is protected by the Federal Confidentiality of Alcohol and Drug Abuse Patient Records regulations: The Federal rules restrict any use of the information to criminally investigate or prosecute any alcohol or drug abuse patient.[facility]In the event this information is protected by the Federal Confidentiality of Alcohol and Drug Abuse Patient Records regulations: The Federal rules restrict any use of the information to criminally investigate or prosecute any alcohol or drug abuse patient.[facility]In the event this information is protected by the Federal Confidentiality of Alcohol and Drug Abuse Patient Records regulations: The Federal rules restrict any use of the information to criminally investigate or prosecute any alcohol or drug abuse patient.[facility]In the event this information is protected by the Federal Confidentiality of Alcohol and Drug Abuse Patient Records regulations: The Federal rules restrict any use of the information to criminally investigate or prosecute any alcohol or drug abuse patient.[facility]In the event this information is protected by the Federal Confidentiality of Alcohol and Drug Abuse Patient Records regulations: The Federal rules restrict any use of the information to criminally investigate or prosecute any alcohol or drug abuse patient.[facility] EastIn the event this information is protected by the Federal Confidentiality of Alcohol and Drug Abuse Patient Records regulations: The Federal rules restrict any use of the information to criminally investigate or prosecute any alcohol or drug abuse patient.[facility]In the event this information is protected by the Federal Confidentiality of Alcohol and Drug Abuse Patient Records regulations: The Federal rules restrict any use of the information to criminally investigate or prosecute any alcohol or drug abuse patient.[facility]In the event this information is protected by the Federal Confidentiality of Alcohol and Drug Abuse Patient Records regulations: The Federal rules restrict any use of the information to criminally investigate or prosecute any alcohol or drug abuse patient.[facility]In the event this information is protected by the Federal Confidentiality of Alcohol and Drug Abuse Patient Records regulations: The Federal rules restrict any use of the information to criminally investigate or prosecute any alcohol or drug abuse patient.[facility]In the event this information is protected by the Federal Confidentiality of Alcohol and Drug Abuse Patient Records regulations: The Federal rules restrict any use of the information to criminally investigate or prosecute any alcohol or drug abuse patient.[facility]In the event this information is protected by the Federal Confidentiality of Alcohol and Drug Abuse Patient Records regulations: The Federal rules restrict any use of the information to criminally investigate or prosecute any alcohol or drug abuse patient.[facility]In the event this information is protected by the Federal Confidentiality of Alcohol and Drug Abuse Patient Records regulations: The Federal rules restrict any use of the information to criminally investigate or prosecute any alcohol or drug abuse patient.[facility]In the event this information is protected by the Federal Confidentiality of Alcohol and Drug Abuse Patient Records regulations: The Federal rules restrict any use of the information to criminally investigate or prosecute any alcohol or drug abuse patient.[facility]In the event this information is protected by the Federal Confidentiality of Alcohol and Drug Abuse Patient Records regulations: The Federal rules restrict any use of the information to criminally investigate or prosecute any alcohol or drug abuse patient.[facility]In the event this information is protected by the Federal Confidentiality of Alcohol and Drug Abuse Patient Records regulations: The Federal rules restrict any use of the information to criminally investigate or prosecute any alcohol or drug abuse patient.[facility]In the event this information is protected by the Federal Confidentiality of Alcohol and Drug Abuse Patient Records regulations: The Federal rules restrict any use of the information to criminally investigate or prosecute any alcohol or drug abuse patient.[facility]In the event this information is protected by the Federal Confidentiality of Alcohol and Drug Abuse Patient Records regulations: The Federal rules restrict any use of the information to criminally investigate or prosecute any alcohol or drug abuse patient.[facility]In the event this information is protected by the Federal Confidentiality of Alcohol and Drug Abuse Patient Records regulations: The Federal rules restrict any use of the information to criminally investigate or prosecute any alcohol or drug abuse patient.[facility]In the event this information is protected by the Federal Confidentiality of Alcohol and Drug Abuse Patient Records regulations: The Federal rules restrict any use of the information to criminally investigate or prosecute any alcohol or drug abuse patient.[facility]In the event this information is protected by the Federal Confidentiality of Alcohol and Drug Abuse Patient Records regulations: The Federal rules restrict any use of the information to criminally investigate or prosecute any alcohol or drug abuse patient.[facility]In the event this information is protected by the Federal Confidentiality of Alcohol and Drug Abuse Patient Records regulations: The Federal rules restrict any use of the information to criminally investigate or prosecute any alcohol or drug abuse patient.[facility]In the event this information is protected by the Federal Confidentiality of Alcohol and Drug Abuse Patient Records regulations: The Federal rules restrict any use of the information to criminally investigate or prosecute any alcohol or drug abuse patient.[facility]In the event this information is protected by the Federal Confidentiality of Alcohol and Drug Abuse Patient Records regulations: The Federal rules restrict any use of the information to criminally investigate or prosecute any alcohol or drug abuse patient.[facility]In the event this information is protected by the Federal Confidentiality of Alcohol and Drug Abuse Patient Records regulations: The Federal rules restrict any use of the information to criminally investigate or prosecute any alcohol or drug abuse patient.[facility]In the event this information is protected by the Federal Confidentiality of Alcohol and Drug Abuse Patient Records regulations: The Federal rules restrict any use of the information to criminally investigate or prosecute any alcohol or drug abuse patient.[facility]In the event this information is protected by the Federal Confidentiality of Alcohol and Drug Abuse Patient Records regulations: The Federal rules restrict any use of the information to criminally investigate or prosecute any alcohol or drug abuse patient.[facility]In the event this information is protected by the Federal Confidentiality of Alcohol and Drug Abuse Patient Records regulations: The Federal rules restrict any use of the information to criminally investigate or prosecute any alcohol or drug abuse patient.[facility]In the event this information is protected by the Federal Confidentiality of Alcohol and Drug Abuse Patient Records regulations: The Federal rules restrict any use of the information to criminally investigate or prosecute any alcohol or drug abuse patient.[facility]In the event this information is protected by the Federal Confidentiality of Alcohol and Drug Abuse Patient Records regulations: The Federal rules restrict any use of the information to criminally investigate or prosecute any alcohol or drug abuse patient.[facility]In the event this information is protected by the Federal Confidentiality of Alcohol and Drug Abuse Patient Records regulations: The Federal rules restrict any use of the information to criminally investigate or prosecute any alcohol or drug abuse patient.[facility]In the event this information is protected by the Federal Confidentiality of Alcohol and Drug Abuse Patient Records regulations: The Federal rules restrict any use of the information to criminally investigate or prosecute any alcohol or drug abuse patient.[facility]In the event this information is protected by the Federal Confidentiality of Alcohol and Drug Abuse Patient Records regulations: The Federal rules restrict any use of the information to criminally investigate or prosecute any alcohol or drug abuse patient.[facility]In the event this information is protected by the Federal Confidentiality of Alcohol and Drug Abuse Patient Records regulations: The Federal rules restrict any use of the information to criminally investigate or prosecute any alcohol or drug abuse patient.[facility]In the event this information is protected by the Federal Confidentiality of Alcohol and Drug Abuse Patient Records regulations: The Federal rules restrict any use of the information to criminally investigate or prosecute any alcohol or drug abuse patient.[facility]In the event this information is protected by the Federal Confidentiality of Alcohol and Drug Abuse Patient Records regulations: The Federal rules restrict any use of the information to criminally investigate or prosecute any alcohol or drug abuse patient.[facility]In the event this information is protected by the Federal Confidentiality of Alcohol and Drug Abuse Patient Records regulations: The Federal rules restrict any use of the information to criminally investigate or prosecute any alcohol or drug abuse patient.[facility]In the event this information is protected by the Federal Confidentiality of Alcohol and Drug Abuse Patient Records regulations: The Federal rules restrict any use of the information to criminally investigate or prosecute any alcohol or drug abuse patient.[facility]In the event this information is protected by the Federal Confidentiality of Alcohol and Drug Abuse Patient Records regulations: The Federal rules restrict any use of the information to criminally investigate or prosecute any alcohol or drug abuse patient.[facility]In the event this information is protected by the Federal Confidentiality of Alcohol and Drug Abuse Patient Records regulations: The Federal rules restrict any use of the information to criminally investigate or prosecute any alcohol or drug abuse patient.[facility]In the event this information is protected by the Federal Confidentiality of Alcohol and Drug Abuse Patient Records regulations: The Federal rules restrict any use of the information to criminally investigate or prosecute any alcohol or drug abuse patient.[facility]In the event this information is protected by the Federal Confidentiality of Alcohol and Drug Abuse Patient Records regulations: The Federal rules restrict any use of the information to criminally investigate or prosecute any alcohol or drug abuse patient.[facility]In the event this information is protected by the Federal Confidentiality of Alcohol and Drug Abuse Patient Records regulations: The Federal rules restrict any use of the information to criminally investigate or prosecute any alcohol or drug abuse patient.[facility]In the event this information is protected by the Federal Confidentiality of Alcohol and Drug Abuse Patient Records regulations: The Federal rules restrict any use of the information to criminally investigate or prosecute any alcohol or drug abuse patient.[facility]In the event this information is protected by the Federal Confidentiality of Alcohol and Drug Abuse Patient Records regulations: The Federal rules restrict any use of the information to criminally investigate or prosecute any alcohol or drug abuse patient.[facility]In the event this information is protected by the Federal Confidentiality of Alcohol and Drug Abuse Patient Records regulations: The Federal rules restrict any use of the information to criminally investigate or prosecute any alcohol or drug abuse patient.[facility]In the event this information is protected by the Federal Confidentiality of Alcohol and Drug Abuse Patient Records regulations: The Federal rules restrict any use of the information to criminally investigate or prosecute any alcohol or drug abuse patient.[facility]In the event this information is protected by the Federal Confidentiality of Alcohol and Drug Abuse Patient Records regulations: The Federal rules restrict any use of the information to criminally investigate or prosecute any alcohol or drug abuse patient.[facility]In the event this information is protected by the Federal Confidentiality of Alcohol and Drug Abuse Patient Records regulations: The Federal rules restrict any use of the information to criminally investigate or prosecute any alcohol or drug abuse patient.[facility]In the event this information is protected by the Federal Confidentiality of Alcohol and Drug Abuse Patient Records regulations: The Federal rules restrict any use of the information to criminally investigate or prosecute any alcohol or drug abuse patient.[facility]In the event this information is protected by the Federal Confidentiality of Alcohol and Drug Abuse Patient Records regulations: The Federal rules restrict any use of the information to criminally investigate or prosecute any alcohol or drug abuse patient.[facility]In the event this information is protected by the Federal Confidentiality of Alcohol and Drug Abuse Patient Records regulations: The Federal rules restrict any use of the information to criminally investigate or prosecute any alcohol or drug abuse patient.[facility]In the event this information is protected by the Federal Confidentiality of Alcohol and Drug Abuse Patient Records regulations: The Federal rules restrict any use of the information to criminally investigate or prosecute any alcohol or drug abuse patient.[facility]In the event this information is protected by the Federal Confidentiality of Alcohol and Drug Abuse Patient Records regulations: The Federal rules restrict any use of the information to criminally investigate or prosecute any alcohol or drug abuse patient.[facility]In the event this information is protected by the Federal Confidentiality of Alcohol and Drug Abuse Patient Records regulations: The Federal rules restrict any use of the information to criminally investigate or prosecute any alcohol or drug abuse patient.[facility]In the event this information is protected by the Federal Confidentiality of Alcohol and Drug Abuse Patient Records regulations: The Federal rules restrict any use of the information to criminally investigate or prosecute any alcohol or drug abuse patient.[facility]In the event this information is protected by the Federal Confidentiality of Alcohol and Drug Abuse Patient Records regulations: The Federal rules restrict any use of the information to criminally investigate or prosecute any alcohol or drug abuse patient.[facility]In the event this information is protected by the Federal Confidentiality of Alcohol and Drug Abuse Patient Records regulations: The Federal rules restrict any use of the information to criminally investigate or prosecute any alcohol or drug abuse patient.[facility]In the event this information is protected by the Federal Confidentiality of Alcohol and Drug Abuse Patient Records regulations: The Federal rules restrict any use of the information to criminally investigate or prosecute any alcohol or drug abuse patient.[facility]In the event this information is protected by the Federal Confidentiality of Alcohol and Drug Abuse Patient Records regulations: The Federal rules restrict any use of the information to criminally investigate or prosecute any alcohol or drug abuse patient.[facility]In the event this information is protected by the Federal Confidentiality of Alcohol and Drug Abuse Patient Records regulations: The Federal rules restrict any use of the information to criminally investigate or prosecute any alcohol or drug abuse patient.[facility]In the event this information is protected by the Federal Confidentiality of Alcohol and Drug Abuse Patient Records regulations: The Federal rules restrict any use of the information to criminally investigate or prosecute any alcohol or drug abuse patient.[facility]In the event this information is protected by the Federal Confidentiality of Alcohol and Drug Abuse Patient Records regulations: The Federal rules restrict any use of the information to criminally investigate or prosecute any alcohol or drug abuse patient.[facility]In the event this information is protected by the Federal Confidentiality of Alcohol and Drug Abuse Patient Records regulations: The Federal rules restrict any use of the information to criminally investigate or prosecute any alcohol or drug abuse patient.[facility]In the event this information is protected by the Federal Confidentiality of Alcohol and Drug Abuse Patient Records regulations: The Federal rules restrict any use of the information to criminally investigate or prosecute any alcohol or drug abuse patient.[facility]In the event this information is protected by the Federal Confidentiality of Alcohol and Drug Abuse Patient Records regulations: The Federal rules restrict any use of the information to criminally investigate or prosecute any alcohol or drug abuse patient.[facility] EastIn the event this information is protected by the Federal Confidentiality of Alcohol and Drug Abuse Patient Records regulations: The Federal rules restrict any use of the information to criminally investigate or prosecute any alcohol or drug abuse patient.[facility] the event this information is protected by the Federal Confidentiality of Alcohol and Drug Abuse Patient Records regulations: The Federal rules restrict any use of the information to criminally investigate or prosecute any alcohol or drug abuse patient.[facility] East[facility] the event this information is protected by the Federal Confidentiality of Alcohol and Drug Abuse Patient Records regulations: The Federal rules restrict any use of the information to criminally investigate or prosecute any alcohol or drug abuse patient.[facility] the event this information is protected by the Federal Confidentiality of Alcohol and Drug Abuse Patient Records regulations: The Federal rules restrict any use of the information to criminally investigate or prosecute any alcohol or drug abuse patient.[facility] the event this information is protected by the Federal Confidentiality of Alcohol and Drug Abuse Patient Records regulations: The Federal rules restrict any use of the information to criminally investigate or prosecute any alcohol or drug abuse patient.[facility] the event this information is protected by the Federal Confidentiality of Alcohol and Drug Abuse Patient Records regulations: The Federal rules restrict any use of the information to criminally investigate or prosecute any alcohol or drug abuse patient.[facility] Care Teams (unrecognized sec tion and content) Glass Robot Operator Relationship Specialty Start Date End Date Newton Tovar MD [address] [place] [address] PCP - General Family Medicine 09/29/22 Glass Robot Operator Relationship Specialty Start Date End Date Newton Tovar MD [address] [place] [address] PCP - General Family Medicine 09/29/22 Glass Robot Operator Relationship Specialty Start Date End Date Newton Tovar MD [facility] [place] [address] PCP - General Family Medicine 09/29/22 Glass Robot Operator Relationship Specialty Start Date End Date Newton Tovar MD [address] [place] [address] PCP - General Family Medicine 09/29/22 Glass Robot Operator Relationship Specialty Start Date End Date Newton Tovar MD [facility] [place] [address] PCP - General Family Medicine 09/29/22 Glass Robot Operator Relationship Specialty Start Date End Date Newton Tovar MD [address] [place] [address] PCP - General Family Medicine 09/29/22 Glass Robot Operator Relationship Specialty Start Date End Date Newton Tovar MD [facility] [place] [address] PCP - General Family Medicine 09/29/22 Team Status: Active Member Role Status Dates No Primary Care Physician Family Provider Active No Primary Care Physician Primary Care Provider Active Team Status: Inactive Member Role Status Dates No Primary Care Physician Primary Care Provider Active Dr. Vincent Thomas , DO Attending Provider, Referring Pr ovider Active Glass Robot Operator Relationship Specialty Start Date End Date Newton Tovar MD [facility] [place] [address] PCP - General Family Medicine 09/29/22 Glass Robot Operator Relationship Specialty Start Date End Date Newton Tovar MD [address] [place] [address] PCP - General Family Medicine 09/29/22 Glass Robot Operator Relationship Specialty Start Date End Date Newton Tovar MD [address] [place] [address] PCP - General Family Medicine 09/29/22 Glass Robot Operator Relationship Specialty Start Date End Date Newton Tovar MD [address] [place] [address] PCP - General Family Medicine 09/29/22 Glass Robot Operator Relationship Specialty Start Date End Date Nweton Tovar MD [address] [place] [address] PCP - General Family Medicine 09/29/22 Glass Robot Operator Relationship Specialty Start Date End Date Newton Tovar MD [address] [place] [address] PCP - General Family Medicine 09/29/22 Glass Robot Operator Relationship Specialty Start Date End Date Newton Tovar MD [address] [place] [address] PCP - General Family Medicine 09/29/22 Glass Robot Operator Relationship Specialty Start Date End Date Newton Tovar MD [address] [place] [address] PCP - General Family Medicine 09/29/22 Team Status: Inactive Member Role Status Dates No Primary Care Physician Primary Care Provider Active Kervin Ovalle CNM Attending Provider Active Glass Robot Operator Relationship Specialty Start Date End Date Newton Tovar MD [address] [place] [address] PCP - General Family Medicine 09/29/22 Glass Robot Operator Relationship Specialty Start Date End Date Newton Tovar MD [address] [place] [address] PCP - General Family Medicine 09/29/22 Glass Robot Operator Relationship Specialty Start Date End Date Newton Tovar MD [address] [place] [address] PCP - General Family Medicine 09/29/22 Glass Robot Operator Relationship Specialty Start Date End Date Newton Tovar MD [address] [place] [address] PCP - General Family Medicine 09/29/22 Glass Robot Operator Relationship Specialty Start Date End Date Newton Tovar MD [address] [place] [address] PCP - General Family Medicine 09/29/22 Glass Robot Operator Relationship Specialty Start Date End Date Newton Tovar MD [address] [place] [address] PCP - General Family Medicine 09/29/22 Glass Robot Operator Relationship Specialty Start Date End Date Newton Tovar MD [address] [place] [address] PCP - General Family Medicine 09/29/22 Team Status: Active Member Role Status Dates No Primary Care Physician Family Provider Active Team Status: Inactive Member Role Status Dates Dr. Christian Urias MD Admit Provider, Atten ding Provider Active Glass Robot Operator Relationship Specialty Start Date End Date Newton Tovar MD [address] [place] [address] PCP - General Family Medicine 09/29/22 Glass Robot Operator Relationship Specialty Start Date End Date Newton Tovar MD [address] [place] [address] PCP - General Family Medicine 09/29/22 Glass Robot Operator Relationship Specialty Start Date End Date Newton Tovar MD [address] [place] [address] PCP - General Family Medicine 09/29/22 Glass Robot Operator Relationship Specialty Start Date End Date Newton Tovar MD [address] [place] [address] PCP - General Family Medicine 09/29/22 Glass Robot Operator Relationship Specialty Start Date End Date Newton Tovar MD [address] [place] [address] PCP - General Family Medicine 09/29/22 Glass Robot Operator Relationship Specialty Start Date End Date Newton Tovar MD [address] [place] [address] PCP - General Family Medicine 09/29/22 Glass Robot Operator Relationship Specialty Start Date End Date Newton Tovar MD [address] [place] [address] PCP - General Family Medicine 09/29/22 Glass Robot Operator Relationship Specialty Start Date End Date Newton Tovar MD [address] [place] [address] PCP - General Family Medicine 09/29/22 Glass Robot Operator Relationship Specialty Start Date End Date Newton Tovar MD [address] [place] [address] PCP - General Family Medicine 09/29/22 Glass Robot Operator Relationship Specialty Start Date End Date Newton Tovar MD [address] [place] [address] PCP - General Family Medicine 09/29/22 Glass Robot Operator Relationship Specialty Start Date End Date Newton Tovar MD [address] [place] [address] PCP - General Family Medicine 09/29/22 Glass Robot Operator Relationship Specialty Start Date End Date Newton Tovar MD [address] [place] [address] PCP - General Family Medicine 09/29/22 Glass Robot Operator Relationship Specialty Start Date End Date Newton Tovar MD [address] [place] [address] PCP - General Family Medicine 09/29/22 Glass Robot Operator Relationship Specialty Start Date End Date Newton Tovar MD [address] [place] [address] PCP - General Family Medicine 09/29/22 Glass Robot Operator Relationship Specialty Start Date End Date Newton Tovar MD [address] [place] [address] PCP - General Family Medicine 09/29/22 Glass Robot Operator Relationship Specialty Start Date End Date Newton Tovar MD [address] [place] [address] PCP - General Family Medicine 09/29/22 Glass Robot Operator Relationship Specialty Start Date End Date Newton Tovar MD [address] [place] [address] PCP - General Family Medicine 09/29/22 Rosette Thomas APRN.ELEVATOR SERVICE MECHANIC [address] [place] [address] Zinc Plating Machine Operator Family Medicine 08/24/24 Mamie Baxter PA-C [address] [place] [address] Zinc Plating Machine Operator Family Medicine 08/24/24 Glass Robot Operator Relationship Specialty Start Date End Date No, Physician [facility] PCP - General 09/04/24 Glass Robot Operator Relationship Specialty Start Date End Date Newton Tovar MD [address] [place] [address] PCP - General Family Medicine 09/29/22 Rosette Thomas APRN.ELEVATOR SERVICE MECHANIC [address] [place] [address] Zinc Plating Machine Operator Family Medicine 08/24/24 Mamie Baxter PA-C [address] [place] [address] Zinc Plating Machine Operator Family Medicine 08/24/24 Glass Robot Operator Relationship Specialty Start Date End Date Newton Tovar MD [address] [place] [address] PCP - General Family Medicine 09/29/22 Rosette Thomas APRN.ELEVATOR SERVICE MECHANIC [address] [place] [address] Zinc Plating Machine Operator Family Medicine 08/24/24 Mamie Baxter PA-C [address] [place] [address] Zinc Plating Machine Operator Family [facility] 08/24/24 Glass Robot Operator Relationship Specialty Start Date End Date Newton Tovar MD [address] [place] [address] PCP - General Family Medicine 09/29/22 Rosette Thomas APRN.ELEVATOR SERVICE MECHANIC [address] [place] [address] Zinc Plating Machine Operator Family Medicine 08/24/24 Mamie Baxter PA-C [address] [place] [address] Zinc Plating Machine Operator [facility] 08/24/24 Glass Robot Operator Relationship Specialty Start Date End Date Newton Tovar MD [address] [place] [address] PCP - General Family Medicine 09/29/22 Rosette Thomas APRN.ELEVATOR SERVICE MECHANIC [address] [place] [address] Zinc Plating Machine Operator Family Medicine 08/24/24 Mamie Baxter PA-C [address] [place] [address] Zinc Plating Machine Operator Family [facility] 08/24/24 Glass Robot Operator Relationship Specialty Start Date End Date Newton Tovar MD [address] [place] [address] PCP - General Family Medicine 09/29/22 Rosette Thomas APRN.ELEVATOR SERVICE MECHANIC [facility] [place] [address] Zinc Plating Machine Operator Family Medicine 08/24/24 Mamie Baxter PA-C [address] [place] [address] [facility] 08/24/24 Glass Robot Operator Relationship Specialty Start Date End Date Newton Tovar MD [address] [place] [address] PCP - General Family Medicine 09/29/22 Rosette Thomas APRN.ELEVATOR SERVICE MECHANIC [address] [place] [address] Zinc Plating Machine Operator Family [facility] 08/24/24 Mamie Baxter PA-C [address] [place] [address] [facility] 08/24/24 Glass Robot Operator Relationship Specialty Start Date End Date Newton Tovar MD [address] [place] [address] PCP - General Family Medicine 09/29/22 Rosette Thomas APRN.ELEVATOR SERVICE MECHANIC [address] [place] [address] [facility] Family Medicine 08/24/24 Mamie Baxter PA-C [address] [place] [address] Zinc Plating Machine Operator Family Medicine 08/24/24 Glass Robot Operator Relationship Specialty Start Date End Date Newton Tovar MD [address] [place] [address] PCP - General Family Medicine 09/29/22 Rosette Thomas APRN.ELEVATOR SERVICE MECHANIC [address] [facility] [place] [address] Zinc Plating Machine Operator Family Medicine 08/24/24 Mamie Baxter PA-C [address] [facility] [place] [address] Zinc Plating Machine Operator Family Medicine 08/24/24 Glass Robot Operator Relationship Specialty Start Date End Date Newton Tovar MD [address] [place] [address] PCP - General Family Medicine 09/29/22 Rosette Thomas, SAM.ELEVATOR SERVICE MECHANIC [address] [place] [address] Zinc Plating Machine Operator Family Medicine 08/24/24 Mamie Baxter PA-C [address] [place] [address] Zinc Plating Machine Operator Family Medicine 08/24/24 Glass Robot Operator Relationship Specialty Start Date End Date Newton Tovar MD [address] [place] [address] PCP - General Family Medicine 09/29/22 Rosette Thomas, PROCUREMENT TECHNICIAN.ELEVATOR SERVICE MECHANIC [address] [place] [address] Zinc Plating Machine Operator Family Medicine 08/24/24 Mamie Baxter PA-C [address] [facility] [place] [address] Zinc Plating Machine Operator Family Medicine 08/24/24 Glass Robot Operator Relationship Specialty Start Date End Date Newton Tovar MD [address] [place] [address] PCP - General Family Medicine 09/29/22 Rosette Thomas APRN.ELEVATOR SERVICE MECHANIC [address] [place] [address] Zinc Plating Machine Operator Family Medicine 08/24/24 Mamie Baxter PA-C [address] [place] [address] Zinc Plating Machine Operator Family Medicine 08/24/24 Glass Robot Operator Relationship Specialty Start Date End Date Newton Tovar MD [address] [place] [address] PCP - General Family Medicine 09/29/22 Rosette Thomas APRN.ELEVATOR SERVICE MECHANIC [address] [place] [address] Zinc Plating Machine Operator Family Medicine 08/24/24 Mamie Baxter PA-C [address] [place] [address] Zinc Plating Machine Operator Family Medicine 08/24/24 Glass Robot Operator Relationship Specialty Start Date End Date Newton Tovar MD [address] [place] [address] PCP - General Family Medicine 09/29/22 Mamie Baxter PA-C [address] [place] [address] Zinc Plating Machine Operator Family Medicine 08/24/24 Glass Robot Operator Relationship Specialty Start Date End Date Newton Tovar MD [address] [place] [address] PCP - General Family Medicine 09/29/22 Rosette Thomas, PROCUREMENT TECHNICIAN.ELEVATOR SERVICE MECHANIC [address] [place] [address] Zinc Plating Machine Operator Family Medicine 02/17/25 Mamie Baxter PA-C [address] [place] [address] Zinc Plating Machine Operator Family Medicine 02/17/25 Glass Robot Operator Relationship Specialty Start Date End Date Newton Tovar MD [address] [place] [address] PCP - General Family Medicine 09/29/22 Rosette Thomas, PROCUREMENT TECHNICIAN.ELEVATOR SERVICE MECHANIC [address] [place] [address] Zinc Plating Machine Operator Family Medicine 02/17/25 Mamie Baxter PA-C [address] [place] [address] Zinc Plating Machine Operator Family Medicine 02/17/25 Glass Robot Operator Relationship Specialty Start Date End Date Newton Tovar MD [address] [place] [address] PCP - General Family Medicine 09/29/22 Rosette Thomas, PROCUREMENT TECHNICIAN.ELEVATOR SERVICE MECHANIC [address] [place] [address] Zinc Plating Machine Operator Family Medicine 02/17/25 Mamie Baxter PA-C [address] [place] [address] Zinc Plating Machine Operator Family Medicine 02/17/25 Glass Robot Operator Relationship Specialty Start Date End Date Newton Tovar MD [address] [place] [address] PCP - General Family Medicine 09/29/22 Rosette Thomas APRN.ELEVATOR SERVICE MECHANIC [address] [place] [address] Zinc Plating Machine Operator Family Medicine 02/17/25 Mamie Baxter PA-C [address] [place] [address] Zinc Plating Machine Operator Family Medicine 02/17/25 Team Status: Active Member Role/Relationship Status Dates No Primary Care Physician Family Provider Active Team Status: Inactive Member Role/Relationship Status Dates Kristen Farr CNM Attending Provider Active St art: March 17, 2025 End: March 18, 2025 Glass Robot Operator Relationship Specialty Start Date End Date Newton Tovar MD [address] [place] [address] PCP - General Family Medicine 09/29/22 Rosette Thomas APRN.ELEVATOR SERVICE MECHANIC [address] [place] [address] Zinc Plating Machine Operator Family Medicine 02/17/25 Mamie Baxter PA-C [address] [place] [address] Zinc Plating Machine Operator Family Medicine 02/17/25 Glass Robot Operator Relationship Specialty Start Date End Date Newton Tovar MD [address] [place] [address] PCP - General Family Medicine 09/29/22 Rosette Thomas APRN.ELEVATOR SERVICE MECHANIC [address] [place] [address] Zinc Plating Machine Operator Family Medicine 02/17/25 Mamie Baxter PA-C [address] [place] [address] Zinc Plating Machine Operator Family Medicine 02/17/25 Glass Robot Operator Relationship Specialty Start Date End Date Newton Tovar MD [address] [place] [address] PCP - General Family Medicine 09/29/22 Rosette Thomas APRN.ELEVATOR SERVICE MECHANIC [address] [place] [address] Zinc Plating Machine Operator Family Medicine 02/17/25 Mamie Baxter PA-C [address] [place] [address] Zinc Plating Machine Operator Family Medicine 02/17/25 Glass Robot Operator Relationship Specialty Start Date End Date Newton Tovar MD [address] [place] [address] PCP - General Family Medicine 09/29/22 Rosette Thomas, SAM.ELEVATOR SERVICE MECHANIC [address] [place] [address] Zinc Plating Machine Operator Family Medicine 02/17/25 Mamie Baxter PA-C [address] [place] [address] Zinc Plating Machine Operator Family Medicine 02/17/25 Glass Robot Operator Relationship Specialty Start Date End Date Newton Tovar MD [address] [place] [address] PCP - General Family Medicine 09/29/22 Rosette Thomas, PROCUREMENT TECHNICIAN.ELEVATOR SERVICE MECHANIC [address] [place] [address] Zinc Plating Machine Operator Family Medicine 08/24/24 02/02/25 Mamie Baxter PA-C [address] [place] [address] Zinc Plating Machine Operator Family Medicine 08/24/24 02/16/25 Rosette Thomas APRN.ELEVATOR SERVICE MECHANIC [address] [place] [address] Zinc Plating Machine Operator Family Medicine 02/17/25 Mamie Baxter PA-C [address] [place] [address] Zinc Plating Machine Operator Family [facility] 02/17/25 Glass Robot Operator Relationship Specialty Start Date End Date Newton Tovar MD [address] [place] [address] PCP - General Family Medicine 09/29/22 Rosette Thomas APRN.ELEVATOR SERVICE MECHANIC [address] [place] [address] Zinc Plating Machine Operator Family Medicine 02/17/25 Mamie Baxter PA-C [facility] [place] [address] Zinc Plating Machine Operator Family Medicine 02/17/25 Glass Robot Operator Relationship Specialty Start Date End Date Newton Tovar MD [facility] [place] [address] PCP - General Family Medicine 09/29/22 Rosette Thomas APRN.ELEVATOR SERVICE MECHANIC [address] [place] [address] [facility] 02/17/25 Mamie Baxter PA-C [address] [place] [address] [facility] 02/17/25 Goals (unrecognized section and content) Goals may be documented in a n alternate sectionGoals may be documented in an alternate sectionGoals may be documented in an alternate section FOR RECORDS PERTAINING TO PATIENTS WHO ARE OR HAVE BEEN ENROLLED IN A CHEMICAL DEPENDENCY/SUBSTANCEABUSE PROGRAM, SOME INFORMATION MAY BE OMITTED. This clinical summary was aggregated from multiple sources. Caution should be exercised in using it in the provision of clinical care. This summary normalizes information from multiple sources, and as a consequence, information in this document may materially change the coding, format and clinical context of patient data. In addition, data may be omitted in some cases. CLINICAL DECISIONS SHOULD BE BASED ON THE PRIMARY CLINICAL RECORDS. [facility] [email or web address] [facility]. provides no warranty or guarantee of the accuracy or completeness of information in this document.
[2025-04-11 03:31] VITALS: BP 119/69; PULSE 93; O2SAT 90
[2025-04-11 07:37] VITALS: PULSE 91; O2SAT 96
[2025-04-11 07:38] VITALS: BP 119/76; PULSE 78
[2025-04-11 14:28] VITALS: BP 119/75; PULSE 76
== END | disposition home or self-care (01) ==
LOC: ED 15:55
PROVIDERS: Visit Provider Emergency Medicine
DX: Z00.00 Encounter for general adult medical examination without abnormal findings (principal)